=== PATIENT | male | born 1955 | race Caucasian/White ===

== ENCOUNTER 2023-08-26 19:24 | Outpatient (CLI) | payer OTHER, SELFPAY | END 2023-08-26 19:25 | disposition home or self-care (01) | LOC: AMB 09-02 16:12 | PROVIDERS: Visit Provider Student in an Organized Health Care Education/Training Program | DX: S29.9XXA Unspecified injury of thorax, initial encounter (principal); W01.0XXA Fall on same level from slipping, tripping and stumbling without subsequent striking against object, initial encounter; Y92.007 Garden or yard of unspecified non-institutional (private) residence as the place of occurrence of the external cause | CPT/HCPCS: A0425; A0427 ==

== ENCOUNTER 2025-01-16 06:13 | Outpatient (CLI) | payer OTHER, MEDICARE, SELFPAY | END 2025-01-16 06:14 | disposition home or self-care (01) | LOC: AMB 01-17 10:01 | PROVIDERS: Visit Provider Family Medicine | DX: M25.511 Pain in right shoulder (principal); Z98.890 Other specified postprocedural states | CPT/HCPCS: A0425; A0427 ==

== ENCOUNTER 2025-01-16 06:52 | Emergency (ER) | payer OTHER, MEDICARE, SELFPAY ==
[2025-01-16 06:55] VITALS: BP 121/76; PULSE 73; RESP 18; TEMP 37; O2SAT 94; BMI 25.9
--- OUTSIDE RECORDS SUMMARY | 2025-01-16 06:55 | XMS_ITS ---
Author Organization [facility] Care Team Providers Care Butadiene Compressor Operator Name Role Phone Jyoti Duarte Unavailable Unavailable Raul Monae Unavailable Unavailable Allergies and adverse reactions Code CodeSystem Substance Reaction Severity StartDate Concern Status 61571 RXNORM Losartan Unknown 01/16/2022 active 99344 RXNORM Lisinopril Unknown 01/16/2022 active 95752 RXNORM Gabapentin Unknown 01/16/2022 active 32142 RXNORM DULoxetine Unknown 01/16/2022 active Demerol Unknown 01/16/2022 active 55358 RXNORM amLODIPine Unknown 01/16/2022 active Care Team Name Role Address Phone Organization Dates Raul Monae [address], [address], [place], [address] [place] [address] (Office): [facility] 01/16/2022 - 01/30/2022 Jyoti Duarte Attending Physician [place] [id number] [facility] [address], [place], [address], [facility] (Office): : [facility] 01/16/2022 - 01/30/2022 Immunizations Immunization Status Vaccine Details Vaccine Code CodeSystem Date Notes TB 2 Step Mantoux Skin Test completed tuberculin skin test; unspecified formulation lotNumber: [id number] expiry: 02/06/2023 Mfg: Aplisol Given 0.1 ml Right Forearm intradermally Step 1 of Multi-step with next step required 98 CVX created date: 01/16/2022 consent date: 01/16/2022 administere d date: 01/16/2022 Read at 0800 by Dileep leon LPN on 01/19/2022 . TDAP completed tetanus toxoid, reduced diphtheria toxoid, and acellular pertussis vaccine, adsorbed 115 CVX created date: 01/16/2022 administere d date: 06/12/2013 PPSV23, Pneumovax 23 completed pneumococcal polysaccharide vaccine, 23 valent 33 CVX created date: 01/16/2022 administere d date: 08/21/2014 PPSV23, Pneumovax 23 completed pneumococcal polysaccharide vaccine, 23 valent 33 CVX created date: 01/16/2022 administere d date: 06/18/2009 PCV13, Kpmobzi02 completed pneumococcal conjugate vaccine, 13 valent 133 CVX created date: 01/16/2022 administere d date: 10/08/2015 Influenza-High Dose completed Influenza, high-dose, split virus, quadrivalent, injectable, preservative free 197 CVX created date: 01/16/2022 administere d date: 07/15/2020 Td completed tetanus and diphtheria toxoids, not adsorbed, for adult use 138 CVX created date: 01/16/2022 administere d date: 02/15/2006 COVID-19 Vaccine dose 1 completed SARS-COV-2 (COVID-19) vaccine, mRNA, spike protein, LNP, preservative free, 30 mcg/0.3mL dose Mfg: Elliptic 208 CVX created date: 01/16/2022 administere d date: 12/15/2020 COVID-19 Vaccine dose 2 completed SARS-COV-2 (COVID-19) vaccine, mRNA, spike protein, LNP, preservative free, 30 mcg/0.3mL dose Mfg: Elliptic 208 CVX created date: 01/16/2022 administere d date: 11/24/2020 Mental Status Section Date Assessment Total Score Description 01/30/2022 BIMS 15 cognitively int act CAM 0 No delirium ind icated PHQ-9 00 01/22/2022 BIMS 14 cognitively int act CAM 0 No delirium ind icated PHQ-9 01 minimal depress ion Problems Problem # Description Date of onset Resolved Date Code CodeSystem Concern Status 1 AFTERCARE FOLLOWING JOINT REPLACEMENT SURGERY 01/16/[address] active 2 CHRONIC OBSTRUCTIVE PULMONARY DISEASE, UNSPECIFIED 01/16/[address] active 3 CHRONIC RESPIRATORY FAILURE, UNSPECIFIED WHETHER WITH HYPOXIA OR HYPERCAPNIA 01/16/[address] active 4 CONSTIPATION, UNSPECIFIED 01/16/[address] active 5 CORONARY ANGIOPLASTY STATUS 01/16/[address] active 6 DEPENDENCE ON OTHER ENABLING MACHINES AND DEVICES 01/16/[address] active 7 DEPENDENCE ON SUPPLEMENTAL OXYGEN 01/16/[address] active 8 EDEMA, UNSPECIFIED 01/16/[address] active 9 ESSENTIAL (PRIMARY) HYPERTENSION 01/16/[address] active 10 HYPERLIPIDEMIA, UNSPECIFIED 01/16/[address] active 11 HYPOTHYROIDISM, UNSPECIFIED 01/16/[address] active 12 INSOMNIA, UNSPECIFIED 01/16/[address] active 13 IRON DEFICIENCY ANEMIA, UNSPECIFIED 01/16/[address] active 14 OBESITY, UNSPECIFIED 01/16/[address] active 15 OBSTRUCTIVE SLEEP APNEA (ADULT) (PEDIATRIC) 01/16/[address] active 16 OLD MYOCARDIAL INFARCTION 01/16/[address] active 17 OTHER SEASONAL ALLERGIC RHINITIS 01/16/[address] active 18 PAIN IN LEFT SHOULDER 01/16/[address] active 19 PRESENCE OF LEFT ARTIFICIAL HIP JOINT 01/16/[address] active 20 PRIMARY OPEN-ANGLE GLAUCOMA, RIGHT EYE, STAGE UNSPECIFIED 01/16/[address] active 21 SPONDYLOSIS, UNSPECIFIED 01/16/[address] active 22 TYPE 2 DIABETES MELLITUS WITH DIABETIC NEUROPATHY, UNSPECIFIED 01/16/[address] active Reason for Referral No Reasons for Referral Entered Social History Social History Observation Description Start Date End Date Code Code System Current Smoking Status Tobacco smoking consumption unknown 351029492 SNOMED CT Sex Assigned At Male 1955 88767-9 [facility] Vital Signs Code Code System Vitals Name Values and Units Timing Information 8462-4 [facility] Blood Pressure-Diastolic Value=58 Un its=mmHg 01/30/2022 8480-6 [facility] Blood Pressure-Systolic Dodrq=905 Un its=mmHg 01/30/2022 03969-1 [facility] O2 % BldC Oximetry Value=97.0 Units= % 01/30/2022 8310-5 [facility] Body Temperature Value=98.1 Units= F 01/30/2022 16569-0 [facility] Pain Level Value=0.0 01/30/2022 9279-1 [facility] Respiratory Rate Value=20.0 Units=/m in 01/29/2022 8867-4 [facility] Heart rate Value=58.0 Units=/min 79094-2 LOINC Weight Rcwai=492.0 Units=Lbs 2339-0 [facility] Blood Sugar Mcbpb=299.0 Units=mg/dL 01/20/2022 8302-2 [facility] Height Value=70.0 Units=Inches 01/19/2022
--- OUTSIDE RECORDS SUMMARY | 2025-01-16 06:55 | XMS_ITS | Continuity of Care Document ---
Author Organization [facility]AN[facility] Address [address] [place] [address] Phone Care Team Providers Care Sign Board Erector Name Role Phone Annika Sarabia PA-C Unavailable Unavaila ble Procedures Procedure Date Offic/outpt E&m Estab Low-mod 6 Destrct; Paravert Facet Jt Lum 06 Destrct; Nerv Lumbar Ea Add Le 06 Destrct; Nerv Lumbar Ea Add Le 06 Fluoro Guid Needle-spine Inj P 06 Inj Anes Facet Jt; Lumb/sac-1l 05 Inj Anes Facet Jt; Lumb/sac-ea 05 Inj Anes Facet Jt; Lumb/sac-ea 05 Fluoro Guid Needle-spine Inj P 05 Advance Directives Directive Yes / No Effective Date File Name No Information Encounters Encounter Description Practice Location Reason(s) For Visit Diagnoses Date Provider Providers Copied on Encounter Offic/outpt E&m Estab Low-mod [facility], [address] [place], [place], [id number], [place] tel:[phone] [facility] No Information 6 No [place]. [address], [place], [address], . tel:[phone] JANIS Jean, [address] [facility] [facility] [address], [place], [place], [id number], tel:[phone] [facility] No Information [address] 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
--- OUTSIDE RECORDS SUMMARY | 2025-01-16 06:55 | XMS_ITS | Clinical Summary ---
Author Organization [facility] Address [address] [place] [address] Care Team Providers Care Hr Recruiter Name Role Phone Nella Dukes MD Primary Care Provi matthew Allergies No known active allergies Medications ASPIRIN 81 MG TAB, DELAYED RELEASE take 1 tablet (81 mg) by oral route once daily 0 0 12/13/2007 Active OMEPRAZOLE 20 MG CAP, DELAYED RELEASE take 1 capsule (20 mg) by oral route once daily before a meal 30 0 12/13/2007 Active LIPITOR 10 MG TAB take 1 tablet (10 mg) by oral route once daily 30 0 12/13/2007 Active Active Problems Problem Noted Date Diagnosed Date Chest pain, unspecified 12/12/2007 Other abnormal glucose 12/12/2007 Unspecified asthma(493.90) Morbid obesity Family History Medical History Relation Name Comments Asthma Brother 4 Other Father MVA. Heart Disease Mother Diabetes Sister 3 Other Sister 4 COPD Relation Name Status Comments Brother 1 Alive Brother 2 Alive Brother 3 Alive Brother 4 Father Complications s econdary to MVA. Mother Sister 1 Alive Sister 2 Alive Sister 3 Sister 4 Social History Tobacco Use Types Packs/Day Years Used Date Smoking Tobacco: Former Comments:Quit 2 years ago. Alcohol Use Standard Drinks/Week Comments Yes 0 (1 standard drink = 0.6 oz pur e alcohol) 1-2 beers/month. Sex and Gender Information Value Date Recorded Sex Assigned at Not on file Legal Sex Male 6:38 AM TURBINE ATTENDANT Gender Identity Not on file Sexual Orientation Not on file Obstetrics History Last Filed Vital Signs Vital Sign Reading Time Taken Comments Blood Pressure 135/78 12/13/2007 4:00 PM TURBINE ATTENDANT Pulse 71 12/13/2007 4:00 PM TURBINE ATTENDANT Temperature 36.6 C (97.8 F) 12/13/2007 4:00 PM TURBINE ATTENDANT Respiratory Rate 18 12/13/2007 4:00 PM TURBINE ATTENDANT Oxygen Saturation 95% 12/13/2007 4:00 PM TURBINE ATTENDANT Inhaled Oxygen Concentration - - Weight 116.6 kg (257 lb) 12/13/2007 5:00 AM TURBINE ATTENDANT Height 180.3 cm (5' 11) 12/12/2007 9:00 PM TURBINE ATTENDANT Body Mass Index 35.84 12/12/2007 9:00 PM TURBINE ATTENDANT Plan of Treatment Health Maintenance Due Date Last Done Comments Tdap 02/14/1964 Depression screening for age 12+ 1965 BMI (ht and wt on same day) for age 18+ 1971 Hepatitis C screening for age 18-79 1971 Tetanus booster 1973 Colonoscopy through age 75 1998 Pneumococcal series for age 50+ (1 of 1 - PCV) 003 Zoster (shingles) series for age 50+ (1 of 2) 02/14/20 03 Lipids for age 45-75 12/13/2012 12/13/2007 COVID-19 vaccine series (2023- season) Influenza Vaccine (#1) 2024 RSV vaccine for adults or pr egnancy (1 - 1-dose 75+ series) 02/14/2028 Procedures Procedure Name Priority Date/Time Associated Diagnosis Comments LIPID PANEL Early AM 12/13/2007 3:40 AM TURBINE ATTENDANT from Last 3 Months or Most Recently Relevant to Health Maintenance Results * (ABNORMAL) Lipid Panel (12/13/2007 3:40 AM TURBINE ATTENDANT) CHOLESTEROL,TOTAL 223(H) 110 - 199 mg/dL [facility] TRIGLYCERIDES 225(H) 40 - 149 mg/dL [facility] HDL CHOLESTEROL 35(L) >40 mg/dL [facility] CHOL/HDL RATIO 6.37(H) <4.51 [facility] LDL CHOLESTEROL 143(H) <131 mg/dL [facility] PATIENT STATUS Fasting [facility] Blood specimen (specimen) BLOOD SPECIMEN / Unknown 12/13/2007 3:40 AM TURBINE ATTENDANT 12/12/2007 11:29 PM TURBINE ATTENDANT Maurice Santos MD CHEMISTRY Final Re sult [facility] [place] [address] [id number] [address] [place] [address] from Last 3 Months or Most Recently Relevant to Health Maintenance Insurance [address] [place] [address] MEDICARE PART B HB ONLY Advance Directives * Full Code (Latest Code Status on File) Date Activated Date Inactivated Comments 12/12/2007 11:29 PM 12/13/2007 11:05 PM Care Teams Hr Recruiter Relationship Specialty Start Date End Date Nella Dukes MD [address] [place] [address] PCP - General Internal Medicine 02/17/20
--- NOTE | 2025-01-16 07:27 | ED_ITS ---
HPI - General Adult General Chief complaint: Extremity Pain/Injury, Upper <Preethi Cruz MD - Last Filed: 01/19/25 01:22> Stated complaint: ems <Preethi Cruz MD - Last Filed: 01/19/25 01:22> Time Seen by Provider: 01/16/25 07:08 <Preethi Cruz MD - Last Filed: 01/19/25 01:22> Source: patient and EMS <Preethi Cruz MD - Last Filed: 01/19/25 01:22> Mode of arrival: EMS <Preethi Cruz MD - Last Filed: 01/19/25 01:22> History of Present Illness HPI narrative: 69-year-old male with a history of a reverse total shoulder replacement 6 days ago presents to the emergency department with uncontrolled pain in the right shoulder, the operative side. Reports that he could not get his pill vials open and that he is struggling to care for himself at home. He was under the impression that he would be going to [facility] facility following discharged from the [facility] on postop day 1. It sounds like there were no beds available and he was discharged to home with home health. It sounds as though he has an existing [facility] nurse. It sounds as though his nurse was there just yesterday and was planning to visit again today. Patient reports that it is difficult to take care of himself with his left hand but he is not able to give me specific details on what needs are difficult to meet. He says that he is not taking any stool softeners or laxatives and his bowels have moved once since he got home 5 days ago. No vomiting. He is vague when I asked specifically about if he is taking his diabetic controlling medications. Blood sugar was noted to be 436 by EMS. Reports that he is eating normally. No new falls, trauma or injury. It sounds as though the right shoulder replacement was elective an and was not the result of a new injury. He reports chronic debility in his legs, wears a brace on the left side for many years has had a replacement on the right side that did improve his function overall. No history of strokes or cognitive impairment per his report. We have no information on him as [facility]. he denies a history of seizure disorder. He reports that diabetes is his only long-term health problem, he does not know his medications. Based on his allergy list which imports from another EMR, he will has allergies to multiple antihypertensives, unknown reactions and pain medications making me suspect that he does have some underlying heart disease. He is vague about questions on alcohol and tobacco use. He has not given me the impression that he has tried to contact other rehab facilities for treatment. He reports that he called because his pain was uncontrolled an EMS was able to open his medication vials and give him to oxycodone, Tylenol and his muscle relaxant and his pain has improved quite a bit on route. Reports that his brother brought him home from surgery last week and does live in the area. Past medical history and medication list are unknown. Surgery list pertinent for a right total knee replacement remotely, a left knee arthroscopic be remotely and a recent right total shoulder replacement. He is vague on any other details. ROS is notable for vague symptoms and pain in the right shoulder, denies any focal neurological, GI, cardiac or respiratory changes. Otherwise benign times 12 systems besides multiple chronic reported musculoskeletal ailments <Preethi Cruz MD - Last Filed: 01/19/25 01:22> Related Data Home medications: Home Medications ?Medication ?Instructions ?Recorded ?Confirmed Unobtainable 01/16/25 01/16/25 <Preethi Cruz MD - Last Filed: 01/19/25 01:22> Allergies/adverse reactions: Allergies Allergy/AdvReac Type Severity Reaction Status Date / Time amlodipine Allergy Unknown Verified 01/16/25 07:26 duloxetine Allergy Unknown Verified 01/16/25 07:26 gabapentin Allergy Unknown Verified 01/16/25 07:26 lisinopril Allergy Unknown Verified 01/16/25 07:26 losartan Allergy Unknown Verified 01/16/25 07:26 meperidine (From Demerol) Allergy Unknown Verified 01/16/25 07:26 metoprolol Allergy Unknown Verified 01/16/25 07:26 <Preethi Cruz MD - Last Filed: 01/19/25 01:22> [facility] Social History: Social History Smoking Status: Unknown if ever smoked <Preethi Cruz MD - Last Filed: 01/19/25 01:22> Exam Const: Vital Signs, click to edit/add: Vital Signs - 24 hr 01/16/25 06:55 Temperature 98.6 F Pulse Rate [Pulse Oximeter] 73 Respiratory Rate 18 Blood Pressure [Ri ght Upper Arm] 121/76 Pulse Oximetry 94 Oxygen Delivery Me thod Room Air <Preethi Cruz MD - Last Filed: 01/19/25 01:22> Vital Signs, click to edit/add: Vital Signs - 24 hr 01/16/25 06:55 Temperature 98.6 F Pulse Rate [Pulse Oximeter] 73 Respiratory Rate 18 Blood Pressure [Ri ght Upper Arm] 121/76 Pulse Oximetry 94 Oxygen Delivery Me thod Room Air <Homero Menendez DO - Last Filed: 01/16/25 09:15> Common normals: no apparent distress and alert <Preethi Cruz MD - Last Filed: 01/19/25 01:22> Other: Obvious bruising consistent with recent surgical procedure but incision appears to be healing well. Does appear well nourished and well hydrated. Does not know medical details but I do not suspect that this reflects acute condition. <Preethi Cruz MD - Last Filed: 01/19/25 01:22> HENMT: Common normals: normocephalic, moist oral mucous membranes and oropharynx normal <Preethi Cruz MD - Last Filed: 01/19/25 01:22> Head and scalp: normocephalic <Preethi Cruz MD - Last Filed: 01/19/25 01:22> Face and sinus: normal facial exam <Preethi Cruz MD - Last Filed: 01/19/25 01:22> Mouth: oral and palatal mucosa normal <MD Kalli Bowser Last Filed: 01/19/25 01:22> Eye: Common normals: PERRL, EOMs intact bilaterally and conjunctivae normal <MD Kalli Bowser Last Filed: 01/19/25 01:22> General eye: normal appearance of both eyes <Preethi Cruz MD - Last Filed: 01/19/25 01:22> Conjunctiva: conjunctiva(e) normal <MD Kalli Bowser Last Filed: 01/19/25 01:22> Pupil: PERRL <MD Kalli Bowser Last Filed: 01/19/25 01:22> Neck & C-Spine: Common normals: full ROM and no lymphadenopathy <MD Kalli Bowser Last Filed: 01/19/25 01:22> Resp: Common normals: normal respiratory effort <MD Kalli Bowser Last Filed: 01/19/25 01:22> Other: Slight prolongation of expiration but no wheeze. Normal respiratory effort. No crackles. <MD Kalli Bowser Last Filed: 01/19/25 01:22> Cardio: Common normals: regular rate, regular rhythm, S1 normal heart sound, S2 normal heart sound and no murmurs <MD Kalli Bowser Last Filed: 01/19/25 01:22> Rate: regular rate <MD Kalli Bowser Last Filed: 01/19/25 01:22> Rhythm: regular rhythm <MD Kalli Bowser Last Filed: 01/19/25 01:22> Heart sounds: S1 normal and S2 normal <MD Kalli Bowser Last Filed: 01/19/25 01:22> GI: Other: Abdomen slightly distended, gaseous distension. Nontender. Normoactive bowel sounds. No obvious mass. <MD Kalli Bowser Last Filed: 01/19/25 01:22> Extremity: Other: Knee brace on left leg, he says that this is chronic and does not reflect an acute surgery. He does have no pedal edema bilaterally. Bruising to the right chest and arm consistent with surgical procedure. Incision does seem to be healing appropriately. He has good movement in the hand and normal radial pulses on the side. <MD Kalli Bowser Last Filed: 01/19/25 01:22> Neuro: Common normals: CN's II-XII intact bilaterally <MD Kalli Bowser Last Filed: 01/19/25 01:22> Sensorium/orientation: alert <Preethi Cruz MD - Last Filed: 01/19/25 01:22> Motor exam: strength 5/5 throughout and muscle tone normal throughout <Elmira Cruz MD - Last Filed: 01/19/25 01:22> Psych: Appearance: unkempt <Preethi Cruz MD - Last Filed: 01/19/25 01:22> Attitude: calm <Preethi Cruz MD - Last Filed: 01/19/25 01:22> Insight: fair <Preethi Cruz MD - Last Filed: 01/19/25 01:22> Judgement: fair <Preethi Cruz MD - Last Filed: 01/19/25 01:22> Skin: Common normals: no rashes or lesions noted <Preethi Cruz MD - Last Filed: 01/19/25 01:22> General skin exam: no rashes or lesions noted <Preethi Cruz MD - Last Filed: 01/19/25 01:22> Course Course ED Course: 69-year-old male with right shoulder pain, improving after administration of patient's typical home medications by EMS. Concern for ability to care for self in home, does not appear to have acute medical illness or sepsis. No signs of acute neurological process. Consult social insurance adviser, ask nursing team to attempt to make contact with his home health nurse to try to get more information on what services he has at home. Blood sugar noted to be elevated, will administer 8 units of insulin, give his morning dose of metformin and feed patient. Pain is already better with administration of p.o. medications. Will check some basic labs to ensure that there are no signs of severe hyperglycemia, metabolic derangement, anemia or other contributing factors. I am uncertain if there are any beds available and any local rehab facilities, and have asked for social insurance adviser input. Most likely these would not be available today but we will do our best. Hopefully his home health team has some ideas on how to better set up his medications that he can self administer. Patient seem quite surprised that he was sent home after the surgery and I let him know that this is typically the practice after an elective surgery like he had. He was surprised to hear this. Recovery is quite difficult and I would not have expected him to be making much more progress then he currently is. He is not able to relay his plans for rehab through physical therapy whether he will be attending a center or this will be arranged at home. I suspect that his home health nurse knows these details better than the patient. Will give some senna and MiraLax as he has not been keeping up with the bowel regimen that was outlined to him after surgery as well. Await input from multidisciplinary team. Suspect that he will be going home with his existing home health services now that his pain is under better control. <Preethi Cruz MD - Last Filed: 01/19/25 01:22> Vital Signs Vital signs: Initial Vital Signs Temperature 98.6 F 01/16/25 06:55 Temperature Source Temporal Artery Scan 01/16/25 06:55 Pulse Rate 73 01/16/25 06:55 Respiratory Rate 18 01/16/25 06:55 Blood Pressure 121/76 01/16/25 06:55 Blood Pressure Mean 91 01/16/25 06:55 Blood Pressure Position Supine 01/16/25 06:55 Pulse Oximetry 94 01/16/25 06:55 Oxygen Delivery Method Room Air 01/16/25 06:55 Vital Signs Temperature 98.6 F 01/16/25 06:55 Pulse Rate 73 01/16/25 06:55 Respiratory Rate 18 01/16/25 06:55 Blood Pressure 121/76 01/16/25 06:55 Pulse Oximetry 94 01/16/25 06:55 Oxygen Delivery Method Room Air 01/16/25 06:55 Temperature 98.6 F 01/16/25 06:55 Pulse Rate 73 01/16/25 06:55 Respiratory Rate 18 01/16/25 06:55 Blood Pressure 121/76 01/16/25 06:55 Pulse Oximetry 94 01/16/25 06:55 Oxygen Delivery Method Room Air 01/16/25 06:55 <Preethi Cruz MD - Last Filed: 01/19/25 01:22> Initial Vital Signs Temperature 98.6 F 01/16/25 06:55 Temperature Source Temporal Artery Scan 01/16/25 06:55 Pulse Rate 73 01/16/25 06:55 Respiratory Rate 18 01/16/25 06:55 Blood Pressure 121/76 01/16/25 06:55 Blood Pressure Mean 91 01/16/25 06:55 Blood Pressure Position Supine 01/16/25 06:55 Pulse Oximetry 94 01/16/25 06:55 Oxygen Delivery Method Room Air 01/16/25 06:55 Vital Signs Temperature 98.6 F 01/16/25 06:55 Pulse Rate 73 01/16/25 06:55 Respiratory Rate 18 01/16/25 06:55 Blood Pressure 121/76 01/16/25 06:55 Pulse Oximetry 94 01/16/25 06:55 Oxygen Delivery Method Room Air 01/16/25 06:55 Temperature 98.6 F 01/16/25 06:55 Pulse Rate 73 01/16/25 06:55 Respiratory Rate 18 01/16/25 06:55 Blood Pressure 121/76 01/16/25 06:55 Pulse Oximetry 94 01/16/25 06:55 Oxygen Delivery Method Room Air 01/16/25 06:55 <Homero Menendez DO - Last Filed: 01/16/25 09:15> Medications Administered Medications: Discontinued Medications Generic Name Dose Route Start Last Admin Trade Name Freq PRN Reason Stop Dose Admin Insulin Human Regular 8 unit 01/16/25 07:14 01/16/25 08:11 Insulin Regular, Human 100 Unit/Ml Vial SUBCUT 01/16/25 07:15 8 unit ONCE ONE Administration Metformin HCl 1,000 mg 01/16/25 07:16 01/16/25 08:10 Metformin 1,000 Mg Tablet PO 01/16/25 07:17 1,000 mg ONCE ONE Administration Polyethylene Glycol 17 gm 01/16/25 07:26 01/16/25 08:10 Polyethylene Glycol 3350 17 Gm Pack PO 01/16/25 07:27 17 gm ONCE ONE Administration Sennosides 2 tab 01/16/25 07:26 01/16/25 08:10 Sennosides 1 Tab Tablet PO 01/16/25 07:27 2 tab BID ONE Administration <Preethi Cruz MD - Last Filed: 01/19/25 01:22> Discontinued Medications Generic Name Dose Route Start Last Admin Trade Name Freq PRN Reason Stop Dose Admin Insulin Human Regular 8 unit 01/16/25 07:14 01/16/25 08:11 Insulin Regular, Human 100 Unit/Ml Vial SUBCUT 01/16/25 07:15 8 unit ONCE ONE Administration Metformin HCl 1,000 mg 01/16/25 07:16 01/16/25 08:10 Metformin 1,000 Mg Tablet PO 01/16/25 07:17 1,000 mg ONCE ONE Administration Polyethylene Glycol 17 gm 01/16/25 07:26 01/16/25 08:10 Polyethylene Glycol 3350 17 Gm Pack PO 01/16/25 07:27 17 gm ONCE ONE Administration Sennosides 2 tab 01/16/25 07:26 01/16/25 08:10 Sennosides 1 Tab Tablet PO 01/16/25 07:27 2 tab BID ONE Administration <Homero Menendez DO - Last Filed: 01/16/25 09:15> Medical Decision Making MDM Narrative Medical decision making narrative: Patient was signed out to me pending evaluation by social insurance adviser. [employer] explain to him that he is not a candidate to get assisted care pain for. Did offer to speak to [facility] his behalf but he declined. She also spoke to his home health who states he has or at the maximum from health the has been a patient of theirs for years. At this time he is accepting for discharge in his home health nurse will arrive at his home shortly. <Homero Menendez DO - Last Filed: 01/16/25 09:15> Lab Data Labs: Lab Results 01/16/25 01/16/25 Range/Units 07:09 07:35 WBC 6.92 (4.50-11.00) K/uL RBC 3.61 L (4.30-5.90) m/uL Hgb 10.6 L (13.5-17.5) gm/dL Hct 34.0 L (37.0-53.0) % MCV 94 (80-100) fL MCH 29 (26-34) pg MCHC 31 L (32-36) gm/dL RDW Coeff of Roger 13.6 (11.5-15.5) % Plt Count 217 (140-440) K/uL Neut % (Auto) 72.3 H (42.0-72.0) % Lymph % (Auto) 11.6 L (20-44) % Morrison % (Auto) 14.3 H (0.0-11.0) % Eos % (Auto) 1.6 (0.0-7.0) % Baso % (Auto) 0.1 (0.0-3.0) % Neut # (Auto) 5.00 (1.7-7.0) K/uL Lymph # (Auto) 0.80 L (0.90-2.90) K/uL Morrison # (Auto) 1.00 H (0.00-0.90) K/UL Eos # (Auto) 0.11 (0.00-0.50) K/uL Baso # (Auto) 0.01 (0.00-0.30) K/uL Abs Immat Gran (auto) 0.01 (0.00-0.30) K/uL Imm/Tot Granulo (auto) 0.1 % Sodium 134 L (135-149) mmol/L Potassium 3.7 (3.6-5.1) mmol/L Chloride 103 (96-114) mmol/L Carbon Dioxide 23 (20-32) mmol/L Anion Gap 8 (7-15) mEq/L BUN 24 (7-30) mg/dL Creatinine 0.8 (0.5-1.5) mg/dL Estimated Creat Clear 72.16 Estimated GFR 95 ml/min Glucose 321 H (60-115) mg/dL Calcium 9.3 (8.4-10.6) mg/dL Total Bilirubin 0.5 (0.1-1.5) mg/dL AST 35 (12-35) U/L ALT 27 (4-50) U/L Alkaline Phosphatase 80 (40-150) U/L C-Reactive Protein 12.5 H (0.5-1.0) mg/dL Total Protein 6.2 (6.0-8.3) g/dL Albumin 3.6 (3.3-5.0) g/dL Urine Color Yellow (Yellow) Urine Appearance Clear (Clear) Urine pH 5.5 (5.0-8.5) Ur Specific Benton <= 1.005 (1.000-1.030) Urine Protein Negative (Negative) Urine Glucose (UA) 3+ A (Negative) Urine Ketones Trace A (Negative) Urine Blood Negative (Negative) Urine Nitrite Negative (Negative) Urine Bilirubin Negative (Negative) Urine Urobilinogen 1.0 (0.2-1.0) Ur Leukocyte Esterase Negative (Negative) <Preethi Cruz MD - Last Filed: 01/19/25 01:22> Lab Results 01/16/25 01/16/25 Range/Units 07:09 07:35 WBC 6.92 (4.50-11.00) K/uL RBC 3.61 L (4.30-5.90) m/uL Hgb 10.6 L (13.5-17.5) gm/dL Hct 34.0 L (37.0-53.0) % MCV 94 (80-100) fL MCH 29 (26-34) pg MCHC 31 L (32-36) gm/dL RDW Coeff of Roger 13.6 (11.5-15.5) % Plt Count 217 (140-440) K/uL Neut % (Auto) 72.3 H (42.0-72.0) % Lymph % (Auto) 11.6 L (20-44) % Morrison % (Auto) 14.3 H (0.0-11.0) % Eos % (Auto) 1.6 (0.0-7.0) % Baso % (Auto) 0.1 (0.0-3.0) % Neut # (Auto) 5.00 (1.7-7.0) K/uL Lymph # (Auto) 0.80 L (0.90-2.90) K/uL Morrison # (Auto) 1.00 H (0.00-0.90) K/UL Eos # (Auto) 0.11 (0.00-0.50) K/uL Baso # (Auto) 0.01 (0.00-0.30) K/uL Abs Immat Gran (auto) 0.01 (0.00-0.30) K/uL Imm/Tot Granulo (auto) 0.1 % Sodium 134 L (135-149) mmol/L Potassium 3.7 (3.6-5.1) mmol/L Chloride 103 (96-114) mmol/L Carbon Dioxide 23 (20-32) mmol/L Anion Gap 8 (7-15) mEq/L BUN 24 (7-30) mg/dL Creatinine 0.8 (0.5-1.5) mg/dL Estimated Creat Clear 72.16 Estimated GFR 95 ml/min Glucose 321 H (60-115) mg/dL Calcium 9.3 (8.4-10.6) mg/dL Total Bilirubin 0.5 (0.1-1.5) mg/dL AST 35 (12-35) U/L ALT 27 (4-50) U/L Alkaline Phosphatase 80 (40-150) U/L C-Reactive Protein 12.5 H (0.5-1.0) mg/dL Total Protein 6.2 (6.0-8.3) g/dL Albumin 3.6 (3.3-5.0) g/dL Urine Color Yellow (Yellow) Urine Appearance Clear (Clear) Urine pH 5.5 (5.0-8.5) Ur Specific Benton <= 1.005 (1.000-1.030) Urine Protein Negative (Negative) Urine Glucose (UA) 3+ A (Negative) Urine Ketones Trace A (Negative) Urine Blood Negative (Negative) Urine Nitrite Negative (Negative) Urine Bilirubin Negative (Negative) Urine Urobilinogen 1.0 (0.2-1.0) Ur Leukocyte Esterase Negative (Negative) <Homero Menendez DO - Last Filed: 01/16/25 09:15> Discharge Plan Discharge Clinical Impression: Post-operative pain, Deficit in activities of daily living (ADL) <Preethi Cruz MD - Last Filed: 01/19/25 01:22> Patient Disposition: Home, Self-Care <Preethi Cruz MD - Last Filed: 01/19/25 01:22> Condition: Stable <Preethi Cruz MD - Last Filed: 01/19/25 01:22> Additional Instructions: Speak to your surgeon about pain management and your home health nurse about your care <Preethi Cruz MD - Last Filed: 01/19/25 01:22> Prescriptions: No Action Unobtainable <Preethi Cruz MD - Last Filed: 01/19/25 01:22> Follow Up/Referrals: Provider,Not a Local [Primary Care Provider] - <Preethi Cruz MD - Last Filed: 01/19/25 01:22> Stand Alone Forms: MyHealth Info Instructions <Preethi Cruz MD - Last Filed: 01/19/25 01:22>
[2025-01-16 07:46] LABS: Basophils Absolute Auto 0.01 K/uL (0.00-0.30); Basophils Percent Auto 0.1 % (0.0-3.0); Eosinophils Absolute Auto 0.11 K/uL (0.00-0.50); Eosinophils Percent Auto 1.6 % (0.0-7.0); Hemoglobin* 10.6 gm/dL (13.5-17.5); Immature Granulocytes Abs Auto 0.01 K/uL (0.00-0.30); Immature Granulocytes Pct Auto 0.1 %; Lymphocytes Percent Auto 11.6 % (20-44); Mean Corpuscular HGB Conc 31 gm/dL (32-36); Mean Corpuscular Hemoglobin 29 pg (26-34); Mean Corpuscular Volume 94 fL (80-100); Monocytes Percent Auto 14.3 % (0.0-11.0); Neutrophils Percent Auto 72.3 % (42.0-72.0); Platelet Count* 217 K/uL (140-440); RDW Coefficient of Variation % 13.6 % (11.5-15.5); Red Blood Count* 3.61 m/uL (4.30-5.90); White Blood Count* 6.92 K/uL (4.50-11.00)
[2025-01-16 07:48] LABS: Slide Review Reflex No
--- OUTSIDE RECORDS SUMMARY | 2025-01-16 07:56 | XMS_ITS | Encounter Summary ---
Author Name [facility] Organization [facility] Address [address] [place] [address] Care Team Providers Care Fisher Diving Name Role Phone ZENY MARTIN Primary Care Provider Unavailabl e Insurance Providers: All historical and current Section Date Range: From patient's date of to the date document was created. This section includes the names of all active insurance providers for the patient. Insurance Provider Type of Coverage Plan Name Start of Policy Coverage End of Policy Coverage Group Number Member ID Insurance Provider's Telephone Number Policy Enrique's Name Patient's Relationship to Policy Enrique MEDICARE (WNR) MEDICARE (M) PART A Oct 18, 2013 PART A [id number] [phone] Mary ROSA PATIENT MEDICARE (WNR) MEDICARE (M) PART B Oct 18, 2013 PART B [id number] [phone] Mary ROSA EOMIRELAD PATIENT MEDICARE (WNR) MEDICARE (M) PART A Oct 18, 2013 PART A [id number] [phone] Mary ROSA PATIENT Selected Encounter This section includes the information on record at [place] for the Encounter. Date/Time Encounter Type Encounter Description Reason Pro vider Source Dec 06, 2024 02:44 PM Outpatient Encounter EVENT (HISTORICAL) [facility] Encounter Template Text not used by [place] Plan of Treatment: Future Appointments (+ 6 months) and Future Tests (+/- 45 days) The Plan of Treatment section includes future care activities for the patient from all [facility] treatment[facility]. This section includes future appointments and future orders which are active, pending or scheduled. Future Appointments This section includes appointments that were scheduled to occur 6 months from the date of the Encounter, up to a maximum of 20 appointments. The data comes from all [facility]. Appointment Date/Time Appointment Type Appointme nt Facility Name Dec 07, 2024 08:45 AM AM[place] [facility] Dec 14, 2024 10:00 AM [place] [facility] Dec 18, 2024 07:00 AM [place]ONE [place] [facility] Dec 18, 2024 01:00 PM [place] [facility] Dec 18, 2024 01:15 PM [place] [facility] Dec 18, 2024 01:45 PM [facility] Dec 18, 2024 02:00 [facility] Dec 18, 2024 02:30 PM AMBULATORY - SURGERY [facility] Dec 19, 2024 11:00 AM AMBULATORY - REHAB MEDICIN E [facility] Dec 27, 2024 07:00 [facility] Dec 28, 2024 10:00 [facility] Dec 28, 2024 11:00 AM AMBULATORY - REHAB MEDICIN E [facility] Jan 01, 2025 01:30 PM AMBULATORY - REHAB MEDICIN E [facility] Jan 24, 2025 01:00 PM AMBULATORY - SURGERY [facility] Jan 25, 2025 10:00 AM [facility] Jan 25, 2025 11:00 AM AMBULATORY - REHAB MEDICIN E [facility] Feb 01, 2025 10:00 AM [place] [facility] Feb 01, 2025 11:00 AM [facility] Feb 08, 2025 10:00 [facility] February 22, 2025 10:00 AM [facility] Active, Pending, and Scheduled Orders This section includes a listing of several types of active, pending, and scheduled orders, including clinic medications orders, diagnostic test orders, procedure orders and consult orders; where the start date of the order is 45 days before the date of the Encounter or 45 days after the date of theEncounter. The data comes from all [place] treatment facilities. Test Date/Time Test Type Test Details Facility Name Dec 11, 2024 11:04 AM Consult Order PT PHYSICA L THERAPY OUTPT ORTHO SURGERY Cons Collection Manager's Choice [facility] Jan 10, 2025 12:00 AM Laboratory - Blood Bank Order TYPE & SCREEN - LAB BLOOD WC [facility] Jan 12, 2025 08:18 AM Consult Order [facility] Collection Manager's [facility] Lab Results: +/- 30 days of the encounter This section includes the Chemistry and Hematology Lab Results on record with [place] for the patient. Radiology Reports and Pathology Reports are provided separately, in subsequent sections. Lab Results This section contains the Chemistry/Hematology Results that were resulted 30 days before or 30 daysafter the date of the Encounter. Date/Time Source Result Type Result - Unit Interpretation Reference Range Comment Dec 18, 2024 12:16 PM [facility] ALBUMIN Specimen Type: PLASMA No comment entered. Ordering Provider: BENIGNO KIM Report Released Date/Time: Sep 27, 2024 10:57 AM Reporting Lab: [facility] [id number] Performing Lab: [facility] [id number] ALBUMIN 4.4 g/dL 3.5-5.0 Dec 18, 2024 12:16 PM [facility] HEMOGLOBIN A1C Specimen Type: BLOOD Comment: Values obtained from A1C measurements can vary. For typical A1C assays, a reported value of 7.0 could actually be between 6.7 and 7.3 if measured by a reference method. A reported value of 9.0 could actually be between 8.7 and 9.3. Ref: http://www.ngs p.org/CAPdata. asp Ordering Provider: BENIGNO KIM A Report Released Date/Time: Sep 27, 2024 10:57 AM Reporting Lab: [facility] [id number] Performing Lab: [facility] [id number] HEMOGLOBIN A1C 7.1 H 4.0-6.0 Dec 18, 2024 12:16 PM [facility] PROTHROMBIN TIME/INR Specimen Type: PLASMA No comment entered. Ordering Provider: BENIGNO KIM A Report Released Date/Time: Sep 27, 2024 10:57 AM Reporting Lab: [facility] [id number] Performing Lab: [facility] [id number] .INR 0.9 0.8-1.1 .PT 10.3 s 9.4-12.5 Dec 18, 2024 12:16 PM [facility] BASIC METABOLIC PANEL+MG Specimen Type: PLASMA No comment entered. Ordering Provider: BENIGNO KIM A Report Released Date/Time: Sep 27, 2024 10:57 AM Reporting Lab: [facility] [id number] Performing Lab: [facility] [id number] CREATININE 1.0 mg/dL 0.7-1.2 UREA NITROGEN 19 mg/dL 8-26 GLUCOSE 118 mg/dL H 70-100 SODIUM 139 mmol/L 136-145 POTASSIUM 4.1 mmol/L 3.5-5.1 CHLORIDE 104 mmol/L 98-107 CO2 25 mmol/L 22-29 CALCIUM 9.6 mg/dL 8.4-10.2 MAGNESIUM 2.1 mg/dL 1.6-2.6 ANION GAP 10 mmol/L 5-15 .CREAT EGFR(CKD-EPI) 80 >60 Dec 18, 2024 12:16 PM [facility] CBC & DIFF Specimen Type: BLOOD Comment: Automated Differential Performed Ordering Provider: BENIGNO KIM A Report Released Date/Time: Sep 27, 2024 10:57 AM Reporting Lab: [facility] [id number] Performing Lab: [facility] [id number] WBC 9.5 4.0-11.0 RBC 5.05 4.60-6.20 HGB 14.9 g/dL 13.5-17.9 HCT 47.6 41.0-54.0 MCV 94.3 fL 80.0-100.0 MCH 29.5 pg 27.0-33.0 MCHC 31.3 g/dL L 32.0-37.5 PLT 217 150-400 MPV 10.5 fL 9.1-13.0 NEUT 60.8 40.0-80.0 LYMPHS 23.7 15.0-45.0 MONO 11.1 2.0-12.0 EOSINO 3.4 0.0-6.0 BASO 0.5 0.0-2.0 RDW 13.4 11.5-14.5 ABS LYMPH 2.3 1.0-4.0 ABS MONO 1.1 H 0.1-1.0 ABS NEUT 5.8 2.0-7.7 ABS EOS 0.3 0.0-0.5 ABS BASO 0.1 0.0-0.2 IG(META,MYELO ,PRO) 0.5 ABS IMMATURE GRAN 0.1 0.0-0.1 Social History: Smoking Status (Most current) and Tobacco Use (All prior to encounter date) This section includes the most current, and the historical, smoking and tobacco- related health factors from the [place] facility where the Encounter took place. Current Smoking Status This section includes the most current smoking, or tobacco-related health factor, from the [place] facility where the Encounter took place. Date/Time Current Smoking Status Comment Facil ity Nov 19, 2023 08:00 AM VA-TOBACCO FORMER USER [facility] Tobacco Use History This section includes a history of the smoking, or tobacco-related health factors, that were collected on or before the date of the Encounter. The data comes from the [place] facility where the Encounter took place. Date/Time Smoking Status/Tobacco Use Comment F acility Nov 19, 2023 08:00 AM VA-TOBACCO QUIT 15 YRS OR MORE [facility] Jan 28, 2023 09:45 AM VA-TOBACCO FORMER USER [facility] Jan 28, 2023 09:45 AM VA-TOBACCO QUIT 15 YRS OR MORE [facility] Oct 30, 2021 03:00 PM VA-TOBACCO FORMER USER [facility] Oct 30, 2021 03:00 PM VA-TOBACCO QUIT 5 TO < 15 YRS [facility] Aug 17, 2019 11:38 AM VA-TOBACCO FORMER USER [facility] Aug 17, 2019 11:38 AM VA-TOBACCO QUIT 5 TO < 15 YRS [facility] Jan 06, 2018 02:39 PM FORMER TOBACCO USER 7Y OR GREATE R [facility] Jan 28, 2017 12:47 PM FORMER TOBACCO USER 7Y OR GREATE R [facility] Jan 21, 2016 03:04 PM FORMER TOBACCO USER 7Y OR GREATE R [facility] Apr 02, 2015 02:05 PM FORMER TOBACCO USER 7Y OR GREATE R [facility] March 01, 2014 09:10 AM FORMER TOBACCO USER 7Y OR GREATE R [facility] Sep 18, 2013 09:13 AM CDM COPD TOBACCO NON-USER [facility] May 28, 2013 11:05 AM LIFETIME NON-TOBACCO USER [facility] May 25, 2013 12:08 PM FORMER TOBACCO USER 7Y OR GREATE R [facility] Jun 18, 2009 09:48 AM FORMER TOBACCO USER 7Y OR GREATE R [facility] Aug 24, 2008 10:10 AM FORMER TOBACCO USE >1Y <7Y [facility] Advance Directives: All historical and current Section Date Range: From patient's date of to the date document was created. This section includes ALL of a patient's completed or amended [place] Advance and Rescinded Directives. The entries below indicate that a directive exists for the patient, but an actual copy is not included with this document. The data comes from all [place] facilities. Date Advance Directives Provider Source March 08, 2023 ADVANCE DIRECTIVE [facility] CHRISTIANSON [facility] May 02, 2014 ADVANCE DIRECTIVE DISCUSSION QUEENIE SAENZ [facility] May 24, 2013 CLINICAL WARNING GALINDO STUART [facility] Sep 21, 2011 ADVANCE DIRECTIVE JORDAN ZHANG [facility]
[2025-01-16 07:57] LABS: Albumin* 3.6 g/dL (3.3-5.0); Chloride* 103 mmol/L (96-114); Potassium* 3.7 mmol/L (3.6-5.1); Sodium* 134 mmol/L (135-149)
--- OUTSIDE RECORDS SUMMARY | 2025-01-16 07:57 | XMS_ITS | Encounter Summary ---
Author Name [facility] [place] [facility] [place] [facility] [place] Address [address] [place] [address] Care Team Providers Care Service Secretary Name Role Phone ZENY MARTIN Primary Care [...] PART A Oct 18, 2013 PART A [id number] [phone] Mary ROSA PATIENT MEDICARE ([place]) MEDICARE (M) PART B Oct 18, 2013 PART B [id number] [phone] Mary ROSA EORODNEY PATIENT MEDICARE ([place]) MEDICARE (M) PART A Oct 18, 2013 PART A [id number] [phone] Mary ROSA PATIENT Selected Encounter This section includes the information on record at [place] for the Encounter. Date/Time Encounter Type Encounter Description Reason Provider Source Sep 25, 2024 11:15 AM OFFICE O/P EST HI 40 MIN ANESTHESIA PRE/POST-OP CONSULT ICD-10-CM Z01.818 Encounter for other preprocedural examination ROBERT WOLFE IHBandar Encounter Template Text not used by [place] Assessments - Encounter Diagnoses This section includes the primary and secondary diagnoses documented for the Encounter. Date/Time Primary/Secondary Diagnosis Diagnosis Name Provider Source Sep 25, 2024 12:36 PM PRIMARY Encounter for other preprocedural examination ROBERT WOLFE [facility] Sep 25, 2024 12:36 PM SECONDARY Athscl heart disease of makah cor art w unsp ang pctrs ROBERT WOLFE [facility] Sep 25, 2024 12:36 PM SECONDARY Chronic obstructive pulmonary disease, unspecified ROBERT WOLFE [facility] Sep 25, 2024 12:36 PM SECONDARY Essential (primary) hypertension ROBERT WOLFE [facility] Sep 25, 2024 12:36 PM SECONDARY Non-ST elevation (NSTEMI) myocardial infarction ROBERT WOLFE [facility] Sep 25, 2024 12:36 PM SECONDARY Other specified postprocedural states ROBERT WOLFE [facility] Sep 25, 2024 12:36 PM SECONDARY Pain in right shoulder ROBERT WOLFE [facility] Sep 25, 2024 12:36 PM SECONDARY Sleep apnea, unspecified ROBERT WOLFE [facility] Sep 25, 2024 12:36 PM SECONDARY Type 2 diabetes mellitus with unspecified complications ROBERT WOLFE [facility] Sep 25, 2024 12:36 PM SECONDARY Ventricular premature depolarization ROBERT WOLFE [facility] Plan of Treatment: Future Appointments (+ 6 months) and Future Tests (+/- 45 days) The Plan of Treatment section includes future care activities for the [facility] [place] [facility] This section includes future appointments and future orders which are active, pending or scheduled. Future Appointments This section includes appointments that were scheduled to occur 6 months from the date of the Encounter, up to a maximum of 20 appointments. The data comes from all [place] treatment facilities. Appointment Date/Time Appointment Type Appointme nt Facility Name Oct 05, 2024 10:00 AM [facility] Nov 02, 2024 10:00 AM [facility] Nov 02, 2024 11:15 [facility] Nov 15, 2024 01:30 PM [facility] Nov 30, 2024 10:00 AM [facility] Dec 07, 2024 08:45 AM [facility] Dec 14, 2024 10:00 AM [facility] Dec 18, 2024 07:00 AM [facility] Dec 18, 2024 01:00 PM AM[facility]UL[place]ORY - NONE [place] [facility] Dec 18, 2024 01:15 PM [facility] Dec 18, 2024 01:45 PM [facility] - [facility] Dec 18, 2024 02:00 PM [facility] Dec 18, 2024 02:30 PM [facility]GERY [facility] Dec 19, 2024 11:00 AM AMBULATORY - REHAB MEDICIN E [facility] Dec 27, 2024 07:00 AM [facility] Dec 28, 2024 10:00 AM AMBULATORY - MEDICINE [facility] Dec 28, 2024 11:00 AM AMBULATORY - REHAB MEDICIN E [facility] Jan 01, 2025 01:30 PM AMBULATORY - REHAB MEDICIN E [facility] Jan 24, 2025 01:00 PM AMBULATORY - SURGERY [facility] Jan 25, 2025 10:00 AM AMBULATORY - MEDICINE [facility] Active, Pending, and Scheduled Orders This section includes a listing of several types of active, pending, and scheduled orders, including clinic medications orders, diagnostic test orders, procedure orders and consult orders; where the start date of the order is 45 days before the date of the Encounter or 45 days after the date of theEncounter. The data comes from all [facility]. Test Date/Time Test Type Test Details Facility Name Sep 18, 2024 12:00 AM Laboratory - Blood Bank Order TYPE & SCREEN - LAB BLOOD [facility] Sep 27, 2024 12:00 AM Laboratory - Blood Bank Order TYPE & SCREEN - LAB BLOOD [facility] Lab Results: +/- 30 days of the encounter This section includes the Chemistry and Hematology Lab Results on record with [place] for the patient. Radiology Reports and Pathology Reports are provided separately, in subsequent sections. Lab Results This section contains the Chemistry/Hematology Results that were resulted 30 days before or 30 daysafter the date of the Encounter. Date/Time Source Result Type Result - Unit Interpretation Reference Range Comment Sep 25, 2024 02:00 PM [facility] ALBUMIN/CREATININE RATIO URINE Specimen Type: URINE No comment entered. Ordering Provider: KRISTEN BARRETO Report Released Date/Time: Sep 25, 2024 01:52 PM Reporting Lab: [facility] [id number] Performing Lab: [facility] [id number] CREATININE,UR RANDOM 46.1 mg/dL L 58.0-161.0 ALB/CREAT RATIO,UR 19.1 mg/g{creat} <29.9 ALBUMIN,UR 8.8 mg/L <29.9 Sep 25, 2024 11:31 AM [facility] HEMOGLOBIN A1C Specimen Type: BLOOD Comment: Values obtained from A1C measurements can vary. For typical A1C assays, a reported value of 7.0 could actually be between 6.7 and 7.3 if measured by a reference method. A reported value of 9.0 could actually be between 8.7 and 9.3. Ref: http://www.ngs [email or web address]/CAPdata. asp Ordering Provider: KRISTEN BARRETO Report Released Date/Time: Mar 27, 2024 01:40 PM Reporting Lab: [facility] [id number] Performing Lab: [facility] [id number] HEMOGLOBIN A1C 7.4 H 4.0-6.0 Sep 25, 2024 11:31 AM [facility] BASIC METABOLIC PANEL+MG Specimen Type: PLASMA No comment entered. Ordering Provider: KRISTEN BARRETO Report Released Date/Time: Mar 27, 2024 01:40 PM Reporting Lab: [facility] [phone] Performing Lab: [facility] [phone] CREATININE 1.0 mg/dL 0.7-1.2 UREA NITROGEN 22 mg/dL 8-26 GLUCOSE 171 mg/dL H 70-100 SODIUM 140 mmol/L 136-145 POTASSIUM 3.9 mmol/L 3.5-5.1 CHLORIDE 107 mmol/L 98-107 CO2 25 mmol/L 22-29 CALCIUM 9.7 mg/dL 8.4-10.2 MAGNESIUM 2.1 mg/dL 1.6-2.6 ANION GAP 8 mmol/L 5-15 .CREAT EGFR(CKD-EPI) 80 >60 Sep 18, 2024 02:59 PM [facility] PROTHROMBIN TIME/INR Specimen Type: PLASMA No comment entered. Ordering Provider: ADALGISA GARCIA Report Released Date/Time: Sep 18, 2024 02:19 PM Reporting Lab: [facility] [phone] Performing Lab: [facility] [phone] .INR 0.9 0.8-1.1 .PT 11.1 s 9.4-12.5 Sep 18, 2024 02:59 PM [facility] ALBUMIN Specimen Type: PLASMA No comment entered. Ordering Provider: ADALGISA GARCIA Report Released Date/Time: Sep 18, 2024 02:19 PM Reporting Lab: [facility] [phone] Performing Lab: [facility] [phone] ALBUMIN 4.7 g/dL 3.5-5.0 Sep 18, 2024 02:59 PM [facility] BASIC METABOLIC PANEL+MG Specimen Type: PLASMA No comment entered. Ordering Provider: ADALGISA GARCIA Report Released Date/Time: Sep 18, 2024 02:19 PM Reporting Lab: [facility] [phone] Performing Lab: [facility] [address] CREATININE 1.1 mg/dL 0.7-1.2 UREA NITROGEN 14 mg/dL 8-26 GLUCOSE 139 mg/dL H 70-100 SODIUM 141 mmol/L 136-145 POTASSIUM 3.9 mmol/L 3.5-5.1 CHLORIDE 105 mmol/L 98-107 CO2 28 mmol/L 22-29 CALCIUM 9.8 mg/dL 8.4-10.2 MAGNESIUM 1.9 mg/dL 1.6-2.6 ANION GAP 8 mmol/L 5-15 .CREAT EGFR(CKD-EPI) 72 >60 Sep 18, 2024 02:59 PM [facility] HEMOGLOBIN A1C Specimen Type: BLOOD Comment: Values obtained from A1C measurements can vary. For typical A1C assays, a reported value of 7.0 could actually be between 6.7 and 7.3 if measured by a reference method. A reported value of 9.0 could actually be between 8.7 and 9.3. Ref: http://www.ngs [email or web address]/CAPdata. asp Ordering Provider: ADALGISA GARCIA Report Released Date/Time: Sep 18, 2024 02:19 PM Reporting Lab: [facility] [phone] Performing Lab: [facility] [phone] HEMOGLOBIN A1C 7.3 H 4.0-6.0 Sep 18, 2024 02:59 PM [facility] CBC & DIFF Specimen Type: BLOOD Comment: Automated Differential Performed Ordering Provider: ADALGISA GARCIA Report Released Date/Time: Sep 18, 2024 02:19 PM Reporting Lab: [facility] [phone] Performing Lab: [facility] [phone] WBC 8.7 4.0-11.0 RBC 5.40 4.60-6.20 HGB 15.8 g/dL 13.5-17.9 HCT 51.0 41.0-54.0 MCV 94.4 fL 80.0-100.0 MCH 29.3 pg 27.0-33.0 MCHC 31.0 g/dL L 32.0-37.5 PLT 214 150-400 MPV 10.8 fL 9.1-13.0 NEUT 59.6 40.0-80.0 LYMPHS 22.5 15.0-45.0 MONO 12.9 H 2.0-12.0 EOSINO 3.8 0.0-6.0 BASO 0.7 0.0-2.0 RDW 14.0 11.5-14.5 ABS LYMPH 2.0 1.0-4.0 ABS MONO 1.1 H 0.1-1.0 ABS NEUT 5.2 2.0-7.7 ABS EOS 0.3 0.0-0.5 ABS BASO 0.1 0.0-0.2 IG(META,MYELO ,PRO) 0.5 ABS IMMATURE GRAN 0.0 0.0-0.1 Vital Signs: All taken on the encounter date This section contains inpatient and outpatient Vital Signs collected on the date of the Encounter. Date/Time Temperature Pulse Blood Pressure Respiratory Rate SP02 Pain Height Weight Body Mass Index Source Sep 25, 2024 11:52 AM 114/73 [facility] Sep 25, 2024 11:52 AM 97.4 67 157/89 16 95 8 70 192.3 28 [facility] Social History: Smoking Status (Most current) and Tobacco Use (All prior to encounter date) This section includes the most current, and the historical, smoking and tobacco- related health factors from the [place] facility where the Encounter took place. Current Smoking Status This section includes the most current smoking, or tobacco-related health factor, from the [place] facility where the Encounter took place. Date/Time Current Smoking Status Comment Facil ity Nov 19, 2023 08:00 AM VA-TOBACCO FORMER USER [facility] Tobacco Use History This section includes a history of the smoking, or tobacco-related health factors, that were collected on or before the date of the Encounter. The data comes from the [place] facility where the Encounter took place. Date/Time Smoking Status/Tobacco Use Comment F acility Nov 19, 2023 08:00 AM VA-TOBACCO QUIT 15 YRS OR MORE [facility] Jan 28, 2023 09:45 AM VA-TOBACCO FORMER USER [facility] Jan 28, 2023 09:45 AM VA-TOBACCO QUIT 15 YRS OR MORE [facility] Oct 30, 2021 03:00 PM VA-TOBACCO FORMER USER [facility] Oct 30, 2021 03:00 PM VA-TOBACCO QUIT 5 TO < 15 YRS [facility] Aug 17, 2019 11:38 AM VA-TOBACCO FORMER USER [facility] Aug 17, 2019 11:38 AM VA-TOBACCO QUIT 5 TO < 15 YRS [facility] Jan 06, 2018 02:39 PM FORMER TOBACCO USER 7Y OR GREATE R [facility] Jan 28, 2017 12:47 PM FORMER TOBACCO USER 7Y OR GREATE R [facility] Jan 21, 2016 03:04 PM FORMER TOBACCO USER 7Y OR GREATE R [facility] Apr 02, 2015 02:05 PM FORMER TOBACCO USER 7Y OR GREATE R [facility] March 01, 2014 09:10 AM FORMER TOBACCO USER 7Y OR GREATE R [facility] Sep 18, 2013 09:13 AM CDM COPD TOBACCO NON-USER [facility] May 28, 2013 11:05 AM LIFETIME NON-TOBACCO USER [facility] May 25, 2013 12:08 PM FORMER TOBACCO USER 7Y OR GREATE R [facility] Jun 18, 2009 09:48 AM FORMER TOBACCO USER 7Y OR GREATE R [facility] Aug 24, 2008 10:10 AM FORMER TOBACCO USE >1Y <7Y [facility] Advance Directives: All historical and current Section Date Range: From patient's date of to the date document was created. This section includes ALL of a patient's completed or amended [place] Advance and Rescinded Directives. The entries below indicate that a directive exists for the patient, but an actual copy is not included with this document. The data comes from all [place] facilities. Date Advance Directives Provider Source March 08, 2023 ADVANCE DIRECTIVE TASHIODILIA BLANCA [facility] May 02, 2014 ADVANCE DIRECTIVE DISCUSSION QUEENIE SAENZ [facility] May 24, 2013 CLINICAL WARNING SHEYLARGALINDO Anisha [facility] Sep 21, 2011 ADVANCE DIRECTIVE JORDAN ZHANG [facility] Encounter Notes: All associated encounter notes This section contains the clinical notes associated to the Encounter. Date/Time Encounter Note(s) Provider Source Sep 25, 2024 11:53 AM REPORT OF CONTACT: LOCAL TITLE: PATIENT CONTACT NOTE STANDARD TITLE: REPORT OF CONTACT DATE OF NOTE: SEP 25, 2024@11:53 ENTRY DATE: SEP 25, 2024@11:53:18 AUTHOR: RG BROWNE EXP COSIGNER: URGENCY: STATUS: COMPLETED Patient contact Name of : KEENA ROSA Name/Relationship of Contact if other than : Date & Time of Contact: Sep@11:53 Type of Contact: In person Reason for Contact: 2F Clinic Nurse Note Reason for visit: ANES PREOP Temperature: 97.4 F [36.3 C] (09/25/2024 11:52) Pulse: 67 (09/25/2024 11:52) Respirations: 16 (09/25/2024 11:52) Blood pressure: 114/73 (09/25/2024 11:52) Blood pressure re-check: 114/73 (09/25/2024 11:52) Pain: 8 (09/25/2024 11:52) Pulse oximetry: 95% (09/25/2024 11:52) Weight: 192.3 lb [87.23 kg] (09/25/2024 11:52) Pt.'s BP 157/89 upon arrival w/ re-check 114/73. They are asymptomatic at this time. Technical Applications Specialist instructed pt. to monitor BP at home & to notify PCP if elevated x 3 days, to which they are agreeable - provider notified & PCP &/or child care aide RN tagged in note per protocol. /es/ RG BROWNE NUCLEAR MEDICINE PHYSICIAN Signed: 09/25/2024 11:54 Receipt Acknowledged By: 09/25/2024 14:30 /es/ ZENY MARTIN MD PHYSICIAN 09/25/2024 12:02 /es/ IRIS ZHU, RN RN PAVAN,RG [employer] [facility] Sep 25, 2024 08:23 AM H & P NOTE: LOCAL TITLE: H&P HISTORY & PHYSICAL STANDARD TITLE: H & P NOTE DATE OF NOTE: SEP 25, 2024@08:23 ENTRY DATE: SEP 25, 2024@08:23:09 AUTHOR: ROBERT WOLFE EXP COSIGNER: URGENCY: STATUS: COMPLETED Preoperative Anesthesia Assessment Chief Complaint: 69 year old with BMI 27.5 for preoperative evaluation. This is a face to face visit. ----History of present illness Mr. Rosa is a 69 y/o male being evaluated preoperatively for prescreening R-reverse TSA w/surgical date TBD. 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 denies recent cold/flu/fever/COVID sx Pt. instructed to notify surgical team for development of any URI sx prior to surgery ----Allergies Lisinopril: Cough Losartan: Cough Amlodipine: Edema Demerol: Respiratory Arrest Gabapentin: Vet does not recall reaction Duloxetine: Nausea ----VITAL SIGNS ------- HR: 59 (05/12/2024 13:19) BP: 112/75 (05/12/2024 13:19) RR: 18 (05/12/2024 13:19) O2: 96% (05/12/2024 13:19) Temp: 97.7 F [36.5 C] (05/12/2024 13:19) HT: 70 in [177.8 cm] (05/12/2024 13:19) WT: 191.5 lb [86.86 kg] (09/07/2024 12:05) BMI: 27.5 ----Past Surgical History No personal or family history of anesthesia complications 02/22/2025 Right reverse TSA REQUESTED 03/08/2023 Right Total Knee Arthroplasty (COMPLETED) Anesthesia Regional, SAB, R-adductor canal PNB Pre-Induction Note: ASA status: IV METS <4 activity limited by joint pain, also O2 dependent, 2 lpm all the time Airway Exam: Mallampati Class: II Mouth opening: full Neck: full range of motion, armednariz Thyromental distance: >6cm Dentition: full dentures upper/ no lower teeth 01/13/2022 left total hip arthroplasty (COMPLETED) Anes: GA, easy mask with aid, DL x1 by SRNA, G1V, 8.0 mm ETT at 23 cm depth. 09:25 cardiac GI consulted in the preop area due to frequent PVCs (pre- existing), run of V. tach, and shoulder pain (pre-existing, so risk for nerve injury was discussed with patient). Labs drawn with i-STAT and K level is 3.9. Okay to proceed with surgery per cardiology. 01/09/2022 ercp UNKNOWN 10/07/2009 right long / middle finger trigger (COMPLETED) release 11/28/2008 Exploration umbilical wound (COMPLETED) REMOVAL OF SUTURE Other: 10/07/2009 right long /middle finger trigger release 11/28/2008 Exploration umbilical wound inguinal Hernia Repair umbilical Hernia Repair 2019 ----SOCIAL HISTORY ------ Tobacco: No Quit 2003, (1-2PPD x 34 years) age 14 to age 48 Alcohol: No Substance use: No ----FAMILY HISTORY ------ Daughter had [place] ----PAST MEDICAL HISTORY - 1. Diabetic peripheral neuropathy (SNOMED CT 096301441) 2. Sleep apnea (SNOMED CT 51417431) - iVAPS: R: 18, PS: 7-16, EPAP+14, Mirag Quatt Med 3. Severe chronic obstructive pulmonary disease (SNOMED CT 162272689) 4. Personal History of Tobacco Use - Quit 2003, Smoked x 25 years 5. Inguinial Hernia Repair 6. Benign essential hypertension (SNOMED CT 3154567) 7. Erectile dysfunction (SNOMED CT 525222868) 8. Osteoarthrosis involving the spine 9. Hyperlipidemia (SNOMED CT 02765776) 10. Polyp of colon (SNOMED CT 77768119) 11. Open Angle, Primary 12. Morbid obesity (SNOMED CT 934753173) 13. History of adenomatous polyp of colon - By 2008 colonoscopy 14. Hypothyroidism 15. Mild memory disturbance - Due to multiple medical etiologies; Normal NPT 2014 16. History of repair of umbilical hernia 17. Chronic pain following right total knee arthroplasty (SNOMED CT 993258401534 18. Hip pain 19. Iron deficiency anemia 20. Diabetes mellitus type 2 without retinopathy (SNOMED CT 7816083379241) 21. Hypokalemia 22. Obesity 23. Ventricular bigeminy 24. Acute non-ST segment elevation myocardial infarction 25. PVC - premature ventricular contraction (SNOMED CT 221372107) 26. Coronary arteriosclerosis - s/p FRED x1 to RCA (2019) 27. History of radiofrequency ablation operation for arrhythmia - - S/p LV summit PVC ablation 12/22/22 28. Exposure to potentially hazardous substance 29. Exposure to potentially hazardous substance - agent orange ----FUNCTIONAL CAPACITY IN MEASURE OF EXERCISE TOLERANCE BEFORE SURGERY (METS) METS: >4 can walk 2+ blocks w/o CV sx, limited by knee pain and does not do stairs ----MEDICATIONS Medication list reviewed with patient and/or patient's family Active/Pending/ Outpatient Medications 1) ACCU-CHEK GUIDE (GLUCOSE) TEST STRIP USE 1 STRIP ACTIVE EVERY DAY 2) ASPIRIN 81MG EC TAB TAKE ONE TABLET BY MOUTH EVERY ACTIVE DAY TO PREVENT BLOOD CLOTS 3) BRIMONIDINE 0.2%/BRINZOLAMID 1% OPH SUSP INSTILL ONE ACTIVE DROP IN BOTH EYES TWO TIMES A DAY FOR GLAUCOMA 4) CHOLECALCIF 25MCG (D3-1,000UNIT) TAB TAKE ONE TABLET ACTIVE BY MOUTH EVERY DAY 5) DESONIDE 0.05% CREAM APPLY THIN LAYER TOPICALLY TWICE ACTIVE A DAY FOR RASH FOR 2 WEEKS OR UNTIL REDNESS AND ITCHING ARE IMPROVED 6) DICLOFENAC NA 1% TOP GEL APPLY 4 GRAMS TOPICALLY FOUR ACTIVE TIMES A DAY NEEDED TO AFFECTED AREA FOR PAIN TO BILAT WRIST FOR ARTHRITS PAIN DO NOT EXCEED A TOTAL MAX OF 32-GRAMS PER DAY 7) EMPAGLIFLOZIN 25MG TAB TAKE ONE TABLET BY MOUTH EVERY ACTIVE DAY 8) FUROSEMIDE 20MG TAB TAKE ONE TABLET BY MOUTH EVERY ACTIVE DAY 9) ISOSORBIDE MONONITRATE 60MG SA TAB TAKE ONE TABLET BY ACTIVE MOUTH EVERY DAY 10) LATANOPROST 0.005% OPH SOLN INSTILL 1 DROP IN BOTH ACTIVE EYES AT BEDTIME FOR GLAUCOMA REFRIGERATE BOTTLE UNTIL OPENED. 11) LEVOTHYROXINE NA (SYNTHROID) 25MCG TAB TAKE ONE ACTIVE TABLET BY MOUTH EVERY DAY FOR THYROID - TAKE AT LEAST FOUR HOURS AWAY FROM FERROUS GLUCONATE 12) LIDOCAINE 5% OINT APPLY MODERATE AMOUNT TOPICALLY ACTIVE EVERY DAY NEEDED FOR PAIN 13) LORATADINE 10MG TAB TAKE ONE TABLET BY MOUTH EVERY ACTIVE DAY FOR ALLERGIES 14) METFORMIN HCL 1000MG TAB TAKE ONE AND ONE-HALF ACTIVE TABLETS BY MOUTH EVERY MORNING AND TAKE ONE TABLET EVERY EVENING 15) METOPROLOL SUCCINATE 25MG SA TAB TAKE ONE-HALF TABLET ACTIVE BY MOUTH EVERY DAY 16) OMEPRAZOLE 20MG EC CAP TAKE ONE CAPSULE BY MOUTH ACTIVE EVERY DAY FOR HEARTBURN 17) ROSUVASTATIN CA 40MG TAB TAKE ONE TABLET BY MOUTH AT ACTIVE BEDTIME 18) SEMAGLUTIDE 1MG/0.75ML INJ PEN 3ML INJECT 1MG UNDER ACTIVE THE SKIN EVERY WEEK ON WEDNESDAYS - once every 2 weeks but advised by Metabolic to switche to weekly 19) TACROLIMUS 0.1% TOP OINT APPLY SMALL AMOUNT TOPICALLY ACTIVE TWICE A DAY FOR DERMATITIS 20) TIOTROPIUM 18MCG INHL CAP 30 INHALE ONE CAPSULE IN ACTIVE INHALER BY INHALATION EVERY DAY FOR BREATHING - not using 21) TOPIRAMATE 50MG TAB TAKE THREE TABLETS BY MOUTH TWICE ACTIVE A DAY TAKE AT NOON AND BEFORE DINNER TO REDUCE CRAVINGS. 22) VANICREAM TOP CREAM APPLY THIN LAYER TOPICALLY EVERY ACTIVE DAY FOR DRY SKIN 1) BRIMONIDINE 0.2%/BRINZOLAMID 1% OPH SUSP INSTILL ONE PENDING DROP IN BOTH EYES TWO TIMES A DAY 2) LATANOPROST 0.005% OPH SOLN INSTILL 1 DROP IN BOTH PENDING EYES AT BEDTIME REFRIGERATE BOTTLE UNTIL OPENED. 3) PEG 400 0.4%/PROP GLYCOL 0.3% OPH SOLN INSTILL 1 DROP PENDING IN BOTH EYES FOUR TIMES A DAY NEEDED 1) FERROUS GLUCONATE 324MG TAB TAKE ONE TABLET BY MOUTH EVERY DAY FOR IRON SUPPLEMENT AT LEAST 4 HOURS AWAY FROM LEVOTHYROXINE Other: MVI daily Naltrexone: No Buprenorphine: No ---LABORATORY STUDIES -- HGB- HGB 15.8 (09/18/24) HCT- HCT 51.0 (09/18/24) WBC- WBC 8.7 (09/18/24) PLT- PLT 214 (09/18/24) INR- INR 0.9 PLASMA (09/18/24 14:59) APTT- APTT____ GLUCOSE- GLUCOSE 139 H (09/18/24) NA- SODIUM 141 (09/18/24) K- POTASSIUM 3.9 (09/18/24) CL- CHLORIDE 105 (09/18/24) CREATINE- CREATININE 1.1 (09/18/24) BILIRUBIN- BILIRUBIN, TOTAL 0.4 (01/11/24) AST- 01/11/2024 11:16 PLASMA!! AST/SGOT 23 U/L Ref: <=34 ALT- 01/11/2024 11:16 PLASMA!! ALT/SGPT 19 U/L Ref: <=55 GFR- EGFR (05/21) 10/30/2021@1400 84 CREATININE EGFR (CKD-EPI) 09/18/2024@1459 72 A1C- HEMOGLOBIN A1C 7.3 H (09/18/24) Troponin- TROPONIN - NONE FOUND Blood Type- SLT - Lab Tests Selected No selection items chosen for this component. ----DIAGNOSTIC STUDIES -- EK09/25/24 SB w/1st degree AVB, nonspecific T wave abnormality, 58 bpm 02/18/23 SR w/sinus arrhythmia w/1st degree AVB, nonspecific T wave abnormality, 62 bpm ECHO: 06/04/24 Reason For Study: Pericarditis Summary: 1. Normal left ventricular size with an estimated ejection fraction of 50-55%. 2. Mild right ventricular enlargement with mildly reduced systolic function. 3. No hemodynamically significant valve disease. 4. Normal size inferior vena cava with normal collapse. 5. No pericardial effusion. 6. No significant change when compared to the study from 02/11/2023. CARDIAC CATH 07/24/2020 (Atypical Chest pain s/p FRED placement 03/2020) Summary: Moderate CAD Dominance: Right dominant Segment Stenosis Length Characteristics and Comments Left Main Luminal irregularities Proximal LAD Luminal irregularities Mid LAD Luminal irregularities Distal LAD Luminal irregularities 1st Diagonal 50% Proximal Circumflex Luminal irregularities Mid Circumflex 65% iFR: 1 FFR: baseline 1, min 0.89 Distal Circumflex small 1st Obtuse Marginal Luminal irregularities 2nd Obtuse Marginal bifurcating, luminal irregularities Proximal RCA Luminal irregularities Mid RCA Luminal irregularities Distal RCA 25% Luminal irregularities Right PDA 60% Ostium jalied by the RCA stent high take-off Right PAV Segment patent stent (placed 04/07/20) Right PL Segment [address] Segment 2 large FINAL DIAGNOSIS 1. Moderate coronary artery disease of mid LCx (FFR 0.89), proximal first diagonal artery, distal RCA, and proximal rPDA. 2. Patent rPAV stent (placed 04/07/20) without evidence of in-stent restenosis. RECOMMENDATIONS 1. Maximize anti-anginal therapy, consider addition of nitrate therapy to medical regimen. 2. Continue prasugrel minimum 12 months from stent placement 04/07/20. 3. Aspirin 81 mg po daily life-long. 4. High intensity statin. Aggressive risk factor modification CTA CHEST WITH CONTRAST 02/11/2023 Impression: 1. No evidence for pulmonary embolism. 2. Gallbladder appears mildly thickened, nonspecific however if there is concern for gallbladder pathology ultrasound is recommended. 3. Nonspecific small enhancing foci in the liver dome. Dedicated imaging is suggested. PFT 08/26/2017 STANDARD STUDY 09/26/14 02/10/13 FVC L 4.47 2.86 64.0 1.86 2.37 FEV1 L 3.35 1.31 39.2 1.20 1.29 PF L/SEC 7.369 3.220 43.7 3.610 2.940 4.40 [id number] L/SEC 3.276 0.340 10.4 0.690 0.460 1.61 FEV1/FVC % 46 INTERPRETATION: Definite obstruction: FEV1/FVC ratio <CI. Severe ( Fev1>=30% and <50% ref ). Compared to previous test(s) 09/26/14, FVC improved ----Risk Stratification -------- Revised Cardiac Risk Index (RCRI): 1 risk factor or class II CAPRINI score: 6 or high risk ---Physical Exam ------ Weight: 192.3 lb [87.23 kg] (09/25/2024 11:52) Height: 70 in [177.8 cm] (09/25/2024 11:52) BMI: 27.6 Blood Pressure: 114/73 (09/25/2024 11:52) Pulse: 67 (09/25/2024 11:52) Pulse Oximetry: 95% (09/25/2024 11:52) Respiration: 16 (09/25/2024 11:52) Temperature: 97.4 F [36.3 C] (09/25/2024 11:52) Airway Exam: Mallampati Class: I Mouth opening: full Neck: full range of motion, mustache and armendariz Thyromental distance: >6cm Dentition: full uppper dentures Cardiac System: Cardiovascular exam normal: regular rhythm and rate, no murmur Respiratory: Clear to auscultation, normal respiratory rate and effort Mental/Neuro exam: Alert, oriented, calm, cooperative ----ASSESSMENT/PLAN-------- This is a 69Y.O. undergoing evaluation for prescreening R-reverse TSA. The final anesthesia plan will be determined by the providers on the day of surgery. 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 Denies palpitations/presyncope/syn cope/orthopnea/SOB/PND. +Reports intermittent R-sided chest pain that lasts minutes and can be w/ or w/o activity. Could not quantify how often this occurs, but states there's been no increase in frequency or severity. He is noted to have had intermittent R-sided chest pain following pericarditis in January which would last 1-2 hrs at the time. States the current pain is unlike his prior severe chest pain w/TN. METS >4 as pt walks 2+ blocks w/walker. Discussed w/PAC Attending Dr. Coulter, can proceed w/o further workup. Pulmonary: Severe COPD, O2 dep (2LNC during the day, uses 2L via BiPAP at night). Chronic, intermittently productive cough. Not on inhalers and denies exacerbation in the last year. GERD sx controlled on PPI, and BMI overweight (27.5). Pt. is a diabetic, please consider sensitive perioperative insulin protocol for hyperglycemia. Hgb a1c elevated today 7.3%, compared to last check in February at 5.0%. Pt. saw Metabolic provider today and was advised to switch semaglutide back to once weekly. Dermatologic: Denies rash/open wounds. Surgical Team: Pt expressed concerns regarding putting on and removing his R- knee brace, w/just one arm following surgery. States he has aides who come in 3x/week to assist, but they would have a difficult time w/the brace as well. Will add on Ortho team to discuss w/pt. Anesthesia Plan: Amenable to blood transfusions as required. Final plan TBD by anesthesia and surgical teams on DOS. ----Patient Education ----- Discussed NPO, Med Mgmt, Transportation, Radio Commentator Guidelines, Regional (as deemed appropriate), [place], CVC, anesthesia team, IV Access, monitoring, pre/post op expectations & GETA vs MAC Preoperative Medication Management: Hold all multivitamins, herbal supplements, NSAIDS x 7 days prior to surgery Continue Aspirin 81 mg unless otherwise directed by surgical team Hold Metformin day of surgery Hold Empagliflozin 3 days Prior to surgery (Diabetics) Hold Semaglutide x1 week preop /kyle/ ROBERT WOLFE, MARIA ESTHER, AGNP-C ADULT MIRANDA NURSE PRACTITIONER Signed: 09/25/2024 16:27 Receipt Acknowledged By: 09/27/2024 10:46 /kyle/ Ghassan UrbanRN RN ROBERT WOLFE [facility]
--- OUTSIDE RECORDS SUMMARY | 2025-01-16 07:57 | XMS_ITS | Encounter Summary ---
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 Date/Time Encounter Type Encounter Description Reason Provider Source Dec 07, 2024 08:45 AM ORTHOTIC MGMT&TRAING 1ST ENC PROSTHETICS/ORTHOT ICS ICD-10-CM M25.562 Pain in left knee ORLY WEBBER Encounter Template Text not used by [place] Assessments - Encounter Diagnoses This section includes the primary and secondary diagnoses documented for the Encounter. Date/Time Primary/Secondary Diagnosis Diagnosis Name Provider Source Dec 07, 2024 09:38 AM PRIMARY Pain in left knee ORLY WEBBER [facility] Plan of Treatment: Future Appointments (+ 6 months) and Future Tests (+/- 45 days) The Plan of Treatment section includes future care activities for the patient [facility]. This section includes future appointments and future orders which are active, pending or scheduled. Future Appointments This section includes appointments that were scheduled to occur 6 months from the date of the Encounter, up to a maximum of 20 appointments. The data comes from all [place] treatment facilities. Appointment Date/Time Appointment Type Appointme nt Facility Name Dec 14, 2024 10:00 AM AMBUL[facility]ORY - [facility]ICINE [facility] Dec 18, 2024 07:00 AM AM[facility]ATORY - NONE [facility] Dec 18, 2024 01:00 PM AMBULATORY - NONE [facility] Dec 18, 2024 01:15 PM [facility]IC[facility] Dec 18, 2024 01:45 PM [facility] [place] [facility] Dec 18, 2024 02:00 PM [facility] Dec 18, 2024 02:30 PM [facility] Dec 19, 2024 11:00 AM AMBULATORY - REHAB MEDICIN [facility] Dec 27, 2024 07:00 AM [facility] N[facility] Dec 28, 2024 10:00 [facility] Dec 28, 2024 11:00 AM AMBULATORY - REHAB MEDICIN E [facility] Jan 01, 2025 01:30 PM AMBULATORY - REHAB MEDICIN E [facility] Jan 24, 2025 01:00 PM [facility] Jan 25, 2025 10:00 AM [facility] Jan 25, 2025 11:00 AM AMBULATORY - REHAB MEDICIN E [facility] Feb 01, 2025 10:00 AM [facility] Feb 01, 2025 11:00 [facility] Feb 08, 2025 10:00 AM [facility] February 22, 2025 10:00 AM AMBULATORY - MEDICINE [facility] February 23, 2025 11:00 AM AM[facility]ULATORY - NONE [facility] Active, Pending, and Scheduled Orders This section includes a listing of several types of active, pending, and scheduled orders, including clinic medications orders, diagnostic test orders, procedure orders and consult orders; where the start date of the order is 45 days before the date of the Encounter or 45 days after the date of theEncounter. The data comes from all [place] treatment facilities. Test Date/Time Test Type Test Details Facility Name Dec 11, 2024 11:04 AM Consult Order PT PHYSICA L THERAPY OUTPT ORTHO SURGERY [facility] [employer] [facility] Jan 10, 2025 12:00 AM Laboratory - Blood Bank Order TYPE & SCREEN - LAB BLOOD WC [facility] Jan 12, 2025 08:18 AM Consult Order [facility] Cons [employer] [facility] Lab Results: +/- 30 days of the encounter This section includes the Chemistry and Hematology Lab Results on record with [facility] for the patient. Radiology Reports and Pathology Reports are provided separately, in subsequent sections. Lab Results This section contains the Chemistry/Hematology Results that were resulted 30 days before or 30 daysafter the date of the Encounter. Date/Time Source Result Type Result - Unit Interpretation Reference Range Comment Dec 18, 2024 12:16 PM [facility] ALBUMIN Specimen Type: PLASMA No comment entered. Ordering Provider: BENIGNO KIM Report Released Date/Time: Sep 27, 2024 10:57 AM Reporting Lab: [facility] [id number] Performing Lab: [facility] [id number] ALBUMIN 4.4 g/dL 3.5-5.0 Dec 18, 2024 12:16 PM [facility] HEMOGLOBIN A1C Specimen Type: BLOOD Comment: Values obtained from A1C measurements can vary. For typical A1C assays, a reported value of 7.0 could actually be between 6.7 and 7.3 if measured by a reference method. A reported value of 9.0 could actually be between 8.7 and 9.3. Ref: http://www.ngs p.org/CAPdata. asp Ordering Provider: BENIGNO KIM Report Released Date/Time: Sep 27, 2024 10:57 AM Reporting Lab: [facility] [id number] Performing Lab: [facility] [id number] HEMOGLOBIN A1C 7.1 H 4.0-6.0 Dec 18, 2024 12:16 PM [facility] PROTHROMBIN TIME/INR Specimen Type: PLASMA No comment entered. Ordering Provider: BENIGNO KIM Report Released Date/Time: Sep 27, 2024 10:57 AM Reporting Lab: [facility] [id number] Performing Lab: [facility] [id number] .INR 0.9 0.8-1.1 .PT 10.3 s 9.4-12.5 Dec 18, 2024 12:16 PM [facility] BASIC METABOLIC PANEL+MG Specimen Type: PLASMA No comment entered. Ordering Provider: BENIGNO KIM A Report Released Date/Time: Sep 27, 2024 10:57 AM Reporting Lab: [facility] [id number] Performing Lab: [facility] [phone] CREATININE 1.0 mg/dL 0.7-1.2 UREA NITROGEN 19 mg/dL 8-26 GLUCOSE 118 mg/dL H 70-100 SODIUM 139 mmol/L 136-145 POTASSIUM 4.1 mmol/L 3.5-5.1 CHLORIDE 104 mmol/L 98-107 CO2 25 mmol/L 22-29 CALCIUM 9.6 mg/dL 8.4-10.2 MAGNESIUM 2.1 mg/dL 1.6-2.6 ANION GAP 10 mmol/L 5-15 .CREAT EGFR(CKD-EPI) 80 >60 Dec 18, 2024 12:16 PM [facility] CBC & DIFF Specimen Type: BLOOD Comment: Automated Differential Performed Ordering Provider: BENIGNO KIM A Report Released Date/Time: Sep 27, 2024 10:57 AM Reporting Lab: [facility] [id number] Performing Lab: [facility] [id number] WBC 9.5 4.0-11.0 RBC 5.05 4.60-6.20 HGB [...] and tobacco- related health factors from the [place] facility where the Encounter took place. Current Smoking Status This section includes the most current smoking, or tobacco-related health factor, from the [place] facility where the Encounter took place. Date/Time Current Smoking Status Comment Facil ity Nov 19, 2023 08:00 AM VA-TOBACCO FORMER USER [facility] Tobacco Use History This section includes a history of the smoking, or tobacco-related health factors, that were collected on or before the date of the Encounter. The data comes from the [place] facility where the Encounter took place. Date/Time Smoking Status/Tobacco Use Comment F acility Nov 19, 2023 08:00 AM VA-TOBACCO QUIT 15 YRS OR MORE [facility] Jan 28, 2023 09:45 AM VA-TOBACCO FORMER USER [facility] Jan 28, 2023 09:45 AM VA-TOBACCO QUIT 15 YRS OR MORE [facility] Oct 30, 2021 03:00 PM VA-TOBACCO FORMER USER [facility] Oct 30, 2021 03:00 PM VA-TOBACCO QUIT 5 TO < 15 YRS [facility] Aug 17, 2019 11:38 AM VA-TOBACCO FORMER USER [facility] Aug 17, 2019 11:38 AM VA-TOBACCO QUIT 5 TO < 15 YRS [facility] Jan 06, 2018 02:39 PM FORMER TOBACCO USER 7Y OR GREATE R [facility] Jan 28, 2017 12:47 PM FORMER TOBACCO USER 7Y OR GREATE R [facility] Jan 21, 2016 03:04 PM FORMER TOBACCO USER 7Y OR GREATE R [facility] Apr 02, 2015 02:05 PM FORMER TOBACCO USER 7Y OR GREATE R [facility] March 01, 2014 09:10 AM FORMER TOBACCO USER 7Y OR GREATE R [facility] Sep 18, 2013 09:13 AM CDM COPD TOBACCO NON-USER [facility] May 28, 2013 11:05 AM LIFETIME NON-TOBACCO USER [facility] May 25, 2013 12:08 PM FORMER TOBACCO USER 7Y OR GREATE R [facility] Jun 18, 2009 09:48 AM FORMER TOBACCO USER 7Y OR GREATE R [facility] Aug 24, 2008 10:10 AM FORMER TOBACCO USE >1Y <7Y [facility] Advance Directives: All historical and current Section Date Range: From patient's date of to the date document was created. This section includes ALL of a patient's completed or amended [place] Advance and Rescinded Directives. The entries below indicate that a directive exists for the patient, but an actual copy is not included with this document. The data comes from all [place] facilities. Date Advance Directives Provider Source March 08, 2023 ADVANCE DIRECTIVE SAMMYLENOÉ Adore [facility]RE[facility] May 02, 2014 ADVANCE DIRECTIVE DISCUSSION QUEENIE SAENZ [facility] May 24, 2013 CLINICAL WARNING NARCISOGALINDO J [facility] Sep 21, 2011 ADVANCE DIRECTIVE JORDAN ZHANG [facility] Encounter Notes: All associated encounter notes This section contains the clinical notes associated to the Encounter. Date/Time Encounter Note(s) Provider Source Dec 07, 2024 09:35 AM ORTHOTICS PROSTHET ICS CONSULT: LOCAL TITLE: PROSTHETICS CONSULT STANDARD TITLE: ORTHOTICS PROSTHETICS CONSULT DATE OF NOTE: DEC 07, 2024@09:35 ENTRY DATE: DEC 07, 2024@09:35:45 AUTHOR: ORLY WEBBER EXP COSIGNER: URGENCY: STATUS: COMPLETED Provisional Diagnosis: Pain in left Knee(ICD-10-CM M25.562) Reason For Request: Brace Outpatient Left knee brace. ASSESSMENT: presented in clinic for final fitting if knee brace. The seemed very satisfied with fit and function. Side: LEFT Thigh:15 1/2 Knee Center:15 Calf:13 10/19 Size: SMALL EDUCATION: Education was provided to patient during this encounter. Patient indicated readiness to learn about educational information re: the following topics: donning/doffing, wash/care instructions, how to report a concern. Patient indicates readiness to learn, verbalizes understanding, agreement and satisfaction with the treatment plan. Denies further questions. If necessary, patient to be rescheduled upon receipt or completed fabrication of ordered item(s)/device(s). FIT AND ISSUED FROM NON STOCK ITEM : QTY:1 Fusion Knee Brace Email [id number] Supplier: [employer] UOM: FARIDEH Wami Availability: In Stock /kyle/ ORLY WEBBER [employer] (Certified Orthotist) Signed: 12/07/2024 09:38 ORLY WEBBER [facility]
--- OUTSIDE RECORDS SUMMARY | 2025-01-16 07:57 | XMS_ITS | Encounter Summary ---
Author Name [facility] [place] [facility] [place] [facility] [facility] [place] Address [address] [place] [address] Care Team Providers Care Grocery Store Associate Name Role Phone ZENY MARTIN Primary Care [...] PART A Oct 18, 2013 PART A [id number] [phone] Mary ROSA PATIENT MEDICARE (WNR) MEDICARE (M) PART B Oct 18, 2013 PART B [id number] [phone] Mary ROSA EORODNEY PATIENT MEDICARE (WNR) MEDICARE (M) PART A Oct 18, 2013 PART A [id number] Mary ROSA PATIENT Selected Encounter This section includes the information on record at [place] for the Encounter. Date/Time Encounter Type Encounter Description Reason Provider Source Dec 18, 2024 02:00 PM ORTHOTIC MGMT&TRAING 1ST ENC PROSTHETICS/ORTHOT ICS ICD-10-CM M25.562 Pain in left knee ORLY WEBBER Encounter Template Text not used by [facility] Assessments - Encounter Diagnoses This section includes the primary and secondary diagnoses documented for the Encounter. Date/Time Primary/Secondary Diagnosis Diagnosis Name Provider Source Dec 18, 2024 02:23 PM PRIMARY Pain in left knee ORLY WEBBER [facility] Plan of Treatment: Future Appointments (+ 6 months) and Future Tests (+/- 45 days) The Plan of Treatment section includes future care activities for the patient from [facility] [place] [facility] This section includes future appointments and future orders which are active, pending or scheduled. Future Appointments This section includes appointments that were scheduled to occur 6 months from the date of the Encounter, up to a maximum of 20 appointments. The data comes from all [place] treatment [facility]. Appointment Date/Time Appointment Type Appointme nt Facility Name Dec 19, 2024 11:00 AM [facility] Dec 27, 2024 07:00 AM AMBULATORY - NONE [facility] Dec 28, 2024 10:00 AM AMBULATORY - MEDICINE [facility] Dec 28, 2024 11:00 AM AMBULATORY - REHAB [facility] Jan 01, 2025 01:30 PM AMBULATORY - REHAB [facility] Jan 24, 2025 01:00 PM AMBULATORY - SURGERY [facility] Jan 25, 2025 10:00 AM AMBULATORY - MEDICINE [facility] Jan 25, 2025 11:00 AM AMBULATORY - REHAB [facility] Feb 01, 2025 10:00 AM AMBULATORY - MEDICINE [facility] Feb 01, 2025 11:00 AM AMBULATORY - MEDICINE [facility] Feb 08, 2025 10:00 AM AMBULATORY - MEDICINE [facility] February 22, 2025 10:00 AM AMBULATORY - MEDICINE [facility] February 23, 2025 11:00 AM AMBULATORY - NONE [facility] February 23, 2025 11:30 AM AMBULATORY - SURGERY [facility] March 08, 2025 10:00 AM AMBULATORY - MEDICINE [facility] Apr 09, 2025 01:00 PM AMBULATORY - SURGERY [facility] Active, Pending, and Scheduled Orders This section includes a listing of several types of active, pending, and scheduled orders, including clinic medications orders, diagnostic test orders, procedure orders and consult orders; where the start date of the order is 45 days before the date of the Encounter or 45 days after the date of theEncounter. The data comes from all [place] treatment facilities. Test Date/Time Test Type Test Details Facility Name Dec 11, 2024 11:04 AM Consult Order PT PHYSICA L THERAPY OUTPT ORTHO SURGERY Cons Director Blood Bank's Choice [facility] Jan 10, 2025 12:00 AM Laboratory - Blood Bank Order TYPE & SCREEN - LAB BLOOD WC [facility] Jan 12, 2025 08:18 AM Consult Order [facility] Cons Director Blood Bank's [facility] Jan 22, 2025 12:00 AM Laboratory - Chemi stry Order HEMOGLOBIN A1C BLOOD SP ONCE [facility] Jan 22, 2025 12:00 AM Laboratory - Chemi stry Order BASIC METABOLIC PANEL+MG PLASMA SP [facility] Lab Results: +/- 30 days of the encounter This section includes the Chemistry and Hematology Lab Results on record with [facility] for the patient. Radiology Reports and Pathology Reports are provided separately, in subsequent sections. Lab Results This section contains the Chemistry/Hematology Results that were resulted 30 days before or 30 daysafter the date of the Encounter. Date/Time Source Result Type Result - Unit Interpretation Reference Range Comment Jan 11, 2025 12:21 PM [facility] FINGERSTICK GLUCOSE Specimen Type: BLOOD Comment: Save Result Nurse Notified Ordering Provider: ANDREA WOLF Report Released Date/Time: Jan 11, 2025 12:51 PM Reporting Lab: [facility] [place] [phone] Performing Lab: [facility] [place] [address] FINGERSTICK GLUCOSE 246 mg/dL H 70-100 Jan 11, 2025 07:37 AM [facility] CBC Specimen Type: BLOOD No comment entered. Ordering Provider: ANDREA WOLF Report Released Date/Time: Jan 10, 2025 02:40 PM Reporting Lab: [facility] [place] [phone] Performing Lab: [facility] [place] [phone] WBC 9.7 4.0-11.0 RBC 4.50 L 4.60-6.20 HGB 12.9 g/dL L 13.5-17.9 HCT 42.3 41.0-54.0 MCV 94.0 fL 80.0-100.0 MCH 28.7 pg 27.0-33.0 MCHC 30.5 g/dL L 32.0-37.5 PLT 174 150-400 MPV 11.5 fL 9.1-13.0 RDW 13.3 11.5-14.5 Jan 11, 2025 07:37 AM [facility] BASIC METABOLIC PANEL+MG Specimen Type: PLASMA No comment entered. Ordering Provider: ANDREA WOLF Report Released Date/Time: Jan 10, 2025 02:40 PM Reporting Lab: [facility] [place] [phone] Performing Lab: [facility] [place] [phone] CREATININE 1.0 mg/dL 0.7-1.2 UREA NITROGEN 21 mg/dL 8-26 GLUCOSE 203 mg/dL H 70-100 SODIUM 136 mmol/L 136-145 POTASSIUM 4.1 mmol/L 3.5-5.1 CHLORIDE 102 mmol/L 98-107 CO2 23 mmol/L 22-29 CALCIUM 8.8 mg/dL 8.4-10.2 MAGNESIUM 2.0 mg/dL 1.6-2.6 ANION GAP 11 mmol/L 5-15 .CREAT EGFR(CKD-EPI) 80 >60 Jan 11, 2025 06:10 AM [facility] FINGERSTICK GLUCOSE Specimen Type: BLOOD Comment: Save Result Nurse Notified Ordering Provider: Lilli CHRISTENSEN Report Released Date/Time: Jan 11, 2025 07:41 AM Reporting Lab: [facility] [place] [phone] Performing Lab: [facility] [place] [address] FINGERSTICK GLUCOSE 220 mg/dL H 70-100 Jan 10, 2025 08:11 PM [facility] FINGERSTICK GLUCOSE Specimen Type: BLOOD Comment: Save Result Nurse Notified Ordering Provider: Lilli CHRISTENSEN Report Released Date/Time: Jan 10, 2025 08:36 PM Reporting Lab: [facility] [place] [address] Performing Lab: [facility] [place] [address] FINGERSTICK GLUCOSE 239 mg/dL H 70-100 Jan 10, 2025 04:30 PM [facility] FINGERSTICK GLUCOSE Specimen Type: BLOOD Comment: Save Result Nurse Notified Ordering Provider: Lilli CHRISTENSEN Report Released Date/Time: Jan 10, 2025 05:34 PM Reporting Lab: [facility] [place] [phone] Performing Lab: [facility] [place] [address] FINGERSTICK GLUCOSE 190 mg/dL H 70-100 Jan 10, 2025 02:40 PM [facility] FINGERSTICK GLUCOSE Specimen Type: BLOOD Comment: Save Result Nurse Notified Ordering Provider: BENIGNO KIM Report Released Date/Time: Jan 10, 2025 03:01 PM Reporting Lab: [facility] [place] [phone] Performing Lab: [facility] [place] [address] FINGERSTICK GLUCOSE 183 mg/dL H 70-100 Jan 10, 2025 08:35 AM [facility] ACT PART THROMBO TIME Specimen Type: PLASMA Comment: ~Draw on admission. Call IV team to draw on admission. Ordering Provider: BENIGNO KIM Report Released Date/Time: Jan 10, 2025 08:01 AM Reporting Lab: [facility] [place] [phone] Performing Lab: [facility] [place] [address] APTT 31.4 s 25.1-36.5 Jan 10, 2025 08:35 AM [facility] PROTHROMBIN TIME/INR Specimen Type: PLASMA Comment: ~Draw on admission. Call IV team to draw on admission. Ordering Provider: BENIGNO KIM Report Released Date/Time: Jan 10, 2025 08:01 AM Reporting Lab: [facility] [place] [phone] Performing Lab: [facility] [place] [phone] .INR 0.9 0.8-1.1 .PT 10.9 s 9.4-12.5 Jan 10, 2025 08:35 AM [facility] CBC Specimen Type: BLOOD No comment entered. Ordering Provider: BENIGNO KIM A Report Released Date/Time: Jan 10, 2025 08:01 AM Reporting Lab: [facility] [place] [phone] Performing Lab: [facility] [place] [address] WBC 6.6 4.0-11.0 RBC 5.00 4.60-6.20 HGB 14.5 g/dL 13.5-17.9 HCT 46.1 41.0-54.0 MCV 92.2 fL 80.0-100.0 MCH 29.0 pg 27.0-33.0 MCHC 31.5 g/dL L 32.0-37.5 PLT 172 150-400 MPV 10.9 fL 9.1-13.0 RDW 13.7 11.5-14.5 Jan 10, 2025 08:35 AM [facility] FINGERSTICK GLUCOSE Specimen Type: BLOOD Comment: Save Result Ordering Provider: BENIGNO KIM A Report Released Date/Time: Jan 10, 2025 10:31 AM Reporting Lab: [facility] [place] [phone] Performing Lab: [facility] [place] [phone] FINGERSTICK GLUCOSE 155 mg/dL H 70-100 Jan 10, 2025 08:35 AM [facility] BASIC METABOLIC PANEL+MG Specimen Type: PLASMA No comment entered. Ordering Provider: BENIGNO KIM A Report Released Date/Time: Jan 10, 2025 08:01 AM Reporting Lab: [facility] [place] [phone] Performing Lab: [facility] [place] [address] CREATININE 0.9 mg/dL 0.7-1.2 UREA NITROGEN 19 mg/dL 8-26 GLUCOSE 151 mg/dL H 70-100 SODIUM 138 mmol/L 136-145 POTASSIUM 3.9 mmol/L 3.5-5.1 CHLORIDE 106 mmol/L 98-107 CO2 23 mmol/L 22-29 CALCIUM 9.3 mg/dL 8.4-10.2 MAGNESIUM 2.0 mg/dL 1.6-2.6 ANION GAP 9 mmol/L 5-15 .CREAT EGFR(CKD-EPI) >90 >60 Dec 18, 2024 12:16 PM [facility] ALBUMIN Specimen Type: PLASMA No comment entered. Ordering Provider: BENIGNO KIM A Report Released Date/Time: Sep 27, 2024 10:57 AM Reporting Lab: [facility] [place] [phone] Performing Lab: [facility] [place] [phone] ALBUMIN 4.4 g/dL 3.5-5.0 Dec 18, 2024 12:16 PM [facility] PROTHROMBIN TIME/INR Specimen Type: PLASMA No comment entered. Ordering Provider: BENIGNO KIM A Report Released Date/Time: Sep 27, 2024 10:57 AM Reporting Lab: [facility] [place] [phone] Performing Lab: [facility] [place] [address] .INR 0.9 0.8-1.1 .PT 10.3 s 9.4-12.5 Dec 18, 2024 12:16 PM [facility] HEMOGLOBIN A1C Specimen Type: BLOOD Comment: Values [...] Sep 27, 2024 10:57 AM Reporting Lab: [facility] [place] [address] Performing Lab: [facility] [place] [address] HEMOGLOBIN A1C 7.1 H 4.0-6.0 Dec 18, 2024 12:16 PM [facility] BASIC METABOLIC PANEL+MG Specimen Type: PLASMA No comment entered. Ordering Provider: BENIGNO KIM Report Released Date/Time: Sep 27, 2024 10:57 AM Reporting Lab: [facility] [place] [address] Performing Lab: [facility] [place] [phone] CREATININE 1.0 mg/dL 0.7-1.2 UREA NITROGEN 19 mg/dL 8-26 GLUCOSE 118 mg/dL H 70-100 SODIUM 139 mmol/L 136-145 POTASSIUM 4.1 mmol/L 3.5-5.1 CHLORIDE 104 mmol/L 98-107 CO2 25 mmol/L 22-29 CALCIUM 9.6 mg/dL 8.4-10.2 MAGNESIUM 2.1 mg/dL 1.6-2.6 ANION GAP 10 mmol/L 5-15 .CREAT EGFR(CKD-EPI) 80 >60 Dec 18, 2024 12:16 PM [facility] CBC & DIFF Specimen Type: BLOOD Comment: Automated Differential Performed Ordering Provider: BENIGNO KIM Report Released Date/Time: Sep 27, 2024 10:57 AM Reporting Lab: [facility] [place] [phone] Performing Lab: [facility] [address] [facility] [phone] WBC 9.5 4.0-11.0 RBC 5.05 4.60-6.20 HGB [...] ,PRO) 0.5 ABS IMMATURE GRAN 0.1 0.0-0.1 Vital Signs: All taken on the encounter date This section contains inpatient and outpatient Vital Signs collected on the date of the Encounter. Date/Time Temperature Pulse Blood Pressure Respiratory Rate SP02 Pain Height Weight Body Mass Index Source Dec 18, 2024 02:06 PM 72 111/72 95 [facility] Social History: Smoking Status (Most current) and Tobacco Use (All prior to encounter date) This section includes the most current, and the historical, smoking and tobacco- related health factors from the [place] facility where the Encounter took place. Current Smoking Status This section includes the most current smoking, or tobacco-related health factor, from the [place] facility where the Encounter took place. Date/Time Current Smoking Status Comment Serina reece Nov 19, 2023 08:00 AM VA-TOBACCO FORMER USER [facility] Tobacco Use History This section includes a history of the smoking, or tobacco-related health factors, that were collected on or before the date of the Encounter. The data comes from the [place] facility where the Encounter took place. Date/Time Smoking Status/Tobacco Use Comment F acility Nov 19, 2023 08:00 AM VA-TOBACCO QUIT 15 YRS OR MORE [facility] Jan 28, 2023 09:45 AM VA-TOBACCO FORMER USER [facility] Jan 28, 2023 09:45 AM VA-TOBACCO QUIT 15 YRS OR MORE [facility] Oct 30, 2021 03:00 PM VA-TOBACCO FORMER USER [facility] Oct 30, 2021 03:00 PM VA-TOBACCO QUIT 5 TO < 15 YRS [facility] Aug 17, 2019 11:38 AM VA-TOBACCO FORMER USER [facility] Aug 17, 2019 11:38 AM VA-TOBACCO QUIT 5 TO < 15 YRS [facility] Jan 06, 2018 02:39 PM FORMER TOBACCO USER 7Y OR GREATE R [facility] Jan 28, 2017 12:47 PM FORMER TOBACCO USER 7Y OR GREATE R [facility] Jan 21, 2016 03:04 PM FORMER TOBACCO USER 7Y OR GREATE R [facility] Apr 02, 2015 02:05 PM FORMER TOBACCO USER 7Y OR GREATE R [facility] March 01, 2014 09:10 AM FORMER TOBACCO USER 7Y OR GREATE R [facility] Sep 18, 2013 09:13 AM CDM COPD TOBACCO NON-USER [facility] May 28, 2013 11:05 AM LIFETIME NON-TOBACCO USER [facility] May 25, 2013 12:08 PM FORMER TOBACCO USER 7Y OR GREATE R [facility] Jun 18, 2009 09:48 AM FORMER TOBACCO USER 7Y OR GREATE R [facility] Aug 24, 2008 10:10 AM FORMER TOBACCO USE >1Y <7Y [facility] Advance Directives: All historical and current Section Date Range: From patient's date of to the date document was created. This section includes ALL of a patient's completed or amended [place] Advance and Rescinded Directives. The entries below indicate that a directive exists for the patient, but an actual copy is not included with this document. The data comes from all [place] facilities. Date Advance Directives Provider Source March 08, 2023 ADVANCE DIRECTIVE ODILIA CHRISTIANSON [facility] May 02, 2014 ADVANCE DIRECTIVE DISCUSSION QUEENIE SAENZ [facility] May 24, 2013 CLINICAL WARNING SHEYLARGALINDO J [facility] Sep 21, 2011 ADVANCE DIRECTIVE JORDAN ZHANG [facility] Radiology Reports: +/- 30 days of the encounter Radiology Reports For cases when an order for radiology services may have been completed prior to the date of the Encounter, the report list includes the Radiology Reports that were completed up to 30 days before dateof the Encounter. For cases when an order for radiology services may have been completed after the date of the Encounter, the report list also includes the Radiology Reports that were completed up to30 days after date of the Encounter. The data comes from all [place] treatment facilities. Date/Time Radiology Report Provider Source Jan 10, 2025 07:58 AM SHOULDER RIGHT 2-3 VIEWS: KEENA ROSA [id number] -[id number] M Exm Date: JAN 10, 2025@07:58 Req Phys: SHELLI KIM Loc: OR-PACU/01-10-2025@15:42 Img Loc: MAIN X-RAY Service: [place] [address] (Case [id number] COMPLETE) SHOULDER RIGHT 2-3 VIEWS (RAD Detailed) CPT:17980 Proc Modifiers : PORTABLE EXAM, OPERATING ROOM EXAM Reason for Study: right reverse TSA Clinical History: OR 6 shoulder rotator cuff arthropathy My pager number on record is: . I confirm that the pager number/cell phone number above is correct for reporting critical results. My correct contact # for critial results is:Valerio KIM [phone] Trainees only: Enter your staff provider's info here: LAST CREATININE 1.0 (12/18/24) Report Status: Verified Date Reported: JAN 10, 2025 Date Verified: JAN 10, 2025 Charge Master Coordinator E-Sig:/ES/MIRANDA BROOKE MD Report: EXAMINATION: SHOULDER RIGHT 2-3 VIEWS 01/10/2025 7:58 AM INDICATION: right reverse TSA Impression: Right reverse TSA. Components appear well seated. Report Sign Date/Time: 01/10/2025 3:39 PM Primary Interpreting Staff: MIRANDA BROOKE MD, RADIOLOGIST (Charge Master Coordinator) /MIRANDA PAULSON [facility] Encounter Notes: All associated encounter notes This section contains the clinical notes associated to the Encounter. Date/Time Encounter Note(s) Provider Source Dec 18, 2024 02:18 PM ORTHOTICS PROSTHET ICS CONSULT: LOCAL TITLE: PROSTHETICS CONSULT STANDARD TITLE: ORTHOTICS PROSTHETICS CONSULT DATE OF NOTE: DEC 18, 2024@14:18 ENTRY DATE: DEC 18, 2024@14:19:03 AUTHOR: ORLY WEBBER EXP COSIGNER: URGENCY: STATUS: COMPLETED Provisional Diagnosis: Pain in left Knee(ICD-10-CM M25.562) Reason For Request: Brace Outpatient Left knee brace. ADJUSTMENT: presented in clinic with concerns of knee brace fit. The had a slight abrasion of the lateral side of the knee he had placed a bandage on. The veterans brace was then bent to widen the area of clearance to avoid further concern. The stated that he felt immediate relief. He was also educated as the brace sat too low. The has been asked to contact our office should he have any further questions or concerns. EDUCATION: Education was provided to patient during this encounter. Patient indicated readiness to learn about educational information re: the following topics: donning/doffing, wash/care instructions, how to report a concern. Patient indicates readiness to learn, verbalizes understanding, agreement and satisfaction with the treatment plan. Denies further questions. If necessary, patient to be rescheduled upon receipt or completed fabrication of ordered item(s)/device(s). No brace issued: /kyle/ ORLY WEBBER Health Registered Dental Assistant (Mixer Blender) Signed: 12/18/2024 14:23 ORLY WEBBER [facility]
--- OUTSIDE RECORDS SUMMARY | 2025-01-16 07:58 | XMS_ITS | Encounter Summary ---
Author Name [facility] [place] [facility] [place] [facility] [place] Address [address] [place] [address] Care Team Providers Care Transmission Superintendent Name Role Phone ZENY MARTIN Primary Care [...] PART A Oct 18, 2013 PART A [id number] [phone] Mary ROSA PATIENT MEDICARE (WNR) MEDICARE (M) PART B Oct 18, 2013 PART B [id number] [phone] Mary ROSA EORODNEY PATIENT MEDICARE (WNR) MEDICARE (M) PART A Oct 18, 2013 PART A [id number] [phone] Mary ROSA PATIENT Selected Encounter This section includes the information on record at [place] for the Encounter. Date/Time Encounter Type Encounter Description Reason Provider Source Jan 01, 2025 01:30 PM SELF CARE MNGMENT TRAINING OCCUPATIONAL THERAPY ICD-10-CM M25.511 Pain in right shoulder FRANKLIN RUSSELL Encounter Template Text not used by [facility] Assessments - Encounter Diagnoses This section includes the primary and secondary diagnoses documented for the Encounter. Date/Time Primary/Secondary Diagnosis Diagnosis Name Provider Source Jan 01, 2025 02:28 PM PRIMARY Pain in right shoulder FRANKLIN RUSSELL [facility] Plan of Treatment: Future Appointments (+ 6 months) and Future Tests (+/- 45 days) The Plan of Treatment section includes future care activities for the patient from all [place] treatmentfacilities. This section includes future appointments and future orders which are active, pending or scheduled. Future Appointments This section includes appointments that were scheduled to occur 6 months from the date of the Encounter, up to a maximum of 20 appointments. The data comes from all [facility]. Appointment Date/Time Appointment Type Appointme nt Facility Name Jan 24, 2025 01:00 PM AMBULATORY - SURGERY [facility] Jan 25, 2025 10:00 AM AMBULATORY - MEDICINE [facility] Jan 25, 2025 11:00 AM AMBULATORY - REHAB MEDICIN E [facility] Feb 01, 2025 10:00 AM AMBULATORY - MEDICINE [facility] Feb 01, 2025 11:00 AM AMBULATORY - MEDICINE [facility] Feb 08, 2025 10:00 AM AMBULATORY - MEDICINE [facility] February 22, 2025 10:00 AM AMBULATORY - MEDICINE [facility] February 23, 2025 11:00 AM AMBULATORY - NONE [facility] February 23, 2025 11:30 AM AMBULATORY - SURGERY [facility] March 08, 2025 10:00 AM AMBULATORY - MEDICINE [facility] Apr 09, 2025 01:00 PM AMBULATORY - SURGERY [facility] Active, Pending, and Scheduled Orders This section includes a listing of several types of active, pending, and scheduled orders, including clinic medications orders, diagnostic test orders, procedure orders and consult orders; where the start date of the order is 45 days before the date of the Encounter or 45 days after the date of theEncounter. The data comes from all [facility]. Test Date/Time Test Type Test Details Facility Name Dec 11, 2024 11:04 AM Consult Order PT PHYSICA L THERAPY OUTPT ORTHO SURGERY [employer] [facility] Jan 10, 2025 12:00 AM Laboratory - Blood Bank Order TYPE & SCREEN - LAB BLOOD WC [facility] Jan 12, 2025 08:18 AM Consult Order [facility] [employer] [facility] Jan 22, 2025 12:00 AM Laboratory - Chemi stry Order HEMOGLOBIN A1C BLOOD SP ONCE [facility] Jan 22, 2025 12:00 AM Laboratory - Chemi stry Order BASIC METABOLIC PANEL+MG PLASMA SP [facility] Lab Results: +/- 30 days of the encounter This section includes the Chemistry and Hematology Lab Results on record with [place] for the patient. Radiology Reports and Pathology Reports are provided separately, in subsequent sections. Lab Results This section contains the Chemistry/Hematology Results that were resulted 30 days before or 30 daysafter the date of the Encounter. Date/Time Source Result Type Result - Unit Interpretation Reference Range Comment Jan 11, 2025 12:21 PM [facility] FINGERSTICK GLUCOSE Specimen Type: BLOOD Comment: Save Result Nurse Notified Ordering Provider: ANDREA WOLF Report Released Date/Time: Jan 11, 2025 12:51 PM Reporting Lab: [facility] [phone] Performing Lab: [facility] [address] FINGERSTICK GLUCOSE 246 mg/dL H 70-100 Jan 11, 2025 07:37 AM [facility] CBC Specimen Type: BLOOD No comment entered. Ordering Provider: ANDREA WOLF Report Released Date/Time: Jan 10, 2025 02:40 PM Reporting Lab: [facility] [id number] Performing Lab: [facility] [phone] WBC 9.7 4.0-11.0 RBC 4.50 L 4.60-6.20 HGB 12.9 g/dL L 13.5-17.9 HCT 42.3 41.0-54.0 MCV 94.0 fL 80.0-100.0 MCH 28.7 pg 27.0-33.0 MCHC 30.5 g/dL L 32.0-37.5 PLT 174 150-400 MPV 11.5 fL 9.1-13.0 RDW 13.3 11.5-14.5 Jan 11, 2025 07:37 AM [facility] BASIC METABOLIC PANEL+MG Specimen Type: PLASMA No comment entered. Ordering Provider: ANDREA WOLF Report Released Date/Time: Jan 10, 2025 02:40 PM Reporting Lab: [facility] [address] Performing Lab: [facility] [address] CREATININE 1.0 mg/dL 0.7-1.2 UREA NITROGEN 21 mg/dL 8-26 GLUCOSE 203 mg/dL H 70-100 SODIUM 136 mmol/L 136-145 POTASSIUM 4.1 mmol/L 3.5-5.1 CHLORIDE 102 mmol/L 98-107 CO2 23 mmol/L 22-29 CALCIUM 8.8 mg/dL 8.4-10.2 MAGNESIUM 2.0 mg/dL 1.6-2.6 ANION GAP 11 mmol/L 5-15 .CREAT EGFR(CKD-EPI) 80 >60 Jan 11, 2025 06:10 AM [facility] FINGERSTICK GLUCOSE Specimen Type: BLOOD Comment: Save Result Nurse Notified Ordering Provider: Lilli CHRISTENSEN Report Released Date/Time: Jan 11, 2025 07:41 AM Reporting Lab: [facility] [address] Performing Lab: [facility] [address] FINGERSTICK GLUCOSE 220 mg/dL H 70-100 Jan 10, 2025 08:11 PM [facility] FINGERSTICK GLUCOSE Specimen Type: BLOOD Comment: Save Result Nurse Notified Ordering Provider: Lilli CHRISTENSEN Report Released Date/Time: Jan 10, 2025 08:36 PM Reporting Lab: [facility] [phone] Performing Lab: [facility] [address] FINGERSTICK GLUCOSE 239 mg/dL H 70-100 Jan 10, 2025 04:30 PM [facility] FINGERSTICK GLUCOSE Specimen Type: BLOOD Comment: Save Result Nurse Notified Ordering Provider: Lilli CHRISTENSEN Report Released Date/Time: Jan 10, 2025 05:34 PM Reporting Lab: [facility] [phone] Performing Lab: [facility] [address] FINGERSTICK GLUCOSE 190 mg/dL H 70-100 Jan 10, 2025 02:40 PM [facility] FINGERSTICK GLUCOSE Specimen Type: BLOOD Comment: Save Result Nurse Notified Ordering Provider: BENIGNO KIM Report Released Date/Time: Jan 10, 2025 03:01 PM Reporting Lab: [facility] [address] Performing Lab: [facility] [address] FINGERSTICK GLUCOSE 183 mg/dL H 70-100 Jan 10, 2025 08:35 AM [facility] PROTHROMBIN TIME/INR Specimen Type: PLASMA Comment: ~Draw on admission. Call IV team to draw on admission. Ordering Provider: BENIGNO KIM Report Released Date/Time: Jan 10, 2025 08:01 AM Reporting Lab: [facility] [address] Performing Lab: [facility] [address] .INR 0.9 0.8-1.1 .PT 10.9 s 9.4-12.5 Jan 10, 2025 08:35 AM [facility] CBC Specimen Type: BLOOD No comment entered. Ordering Provider: BENIGNO KIM A Report Released Date/Time: Jan 10, 2025 08:01 AM Reporting Lab: [facility] [address] Performing Lab: [facility] [address] WBC 6.6 4.0-11.0 RBC 5.00 4.60-6.20 HGB 14.5 g/dL 13.5-17.9 HCT 46.1 41.0-54.0 MCV 92.2 fL 80.0-100.0 MCH 29.0 pg 27.0-33.0 MCHC 31.5 g/dL L 32.0-37.5 PLT 172 150-400 MPV 10.9 fL 9.1-13.0 RDW 13.7 11.5-14.5 Jan 10, 2025 08:35 AM [facility] ACT PART THROMBO TIME Specimen Type: PLASMA Comment: ~Draw on admission. Call IV team to draw on admission. Ordering Provider: BEINGNO KIM Report Released Date/Time: Jan 10, 2025 08:01 AM Reporting Lab: [facility] [phone] Performing Lab: [facility] [address] APTT 31.4 s 25.1-36.5 Jan 10, 2025 08:35 AM [facility] BASIC METABOLIC PANEL+MG Specimen Type: PLASMA No comment entered. Ordering Provider: JULIO,RAMC ES A Report Released Date/Time: Jan 10, 2025 08:01 AM Reporting Lab: [facility] [address] Performing Lab: [facility] [address] CREATININE 0.9 mg/dL 0.7-1.2 UREA NITROGEN 19 mg/dL 8-26 GLUCOSE 151 mg/dL H 70-100 SODIUM 138 mmol/L 136-145 POTASSIUM 3.9 mmol/L 3.5-5.1 CHLORIDE 106 mmol/L 98-107 CO2 23 mmol/L 22-29 CALCIUM 9.3 mg/dL 8.4-10.2 MAGNESIUM 2.0 mg/dL 1.6-2.6 ANION GAP 9 mmol/L 5-15 .CREAT EGFR(CKD-EPI) >90 >60 Jan 10, 2025 08:35 AM [facility] FINGERSTICK GLUCOSE Specimen Type: BLOOD Comment: Save Result Ordering Provider: BENIGNO KIM Report Released Date/Time: Jan 10, 2025 10:31 AM Reporting Lab: [facility] [address] Performing Lab: [facility] [address] FINGERSTICK GLUCOSE 155 mg/dL H 70-100 Dec 18, 2024 12:16 PM [facility] ALBUMIN Specimen Type: PLASMA No comment entered. Ordering Provider: BENIGNO KIM Report Released Date/Time: Sep 27, 2024 10:57 AM Reporting Lab: [facility] [address] Performing Lab: [facility] [address] ALBUMIN 4.4 g/dL 3.5-5.0 Dec 18, 2024 12:16 PM [facility] HEMOGLOBIN A1C Specimen Type: BLOOD Comment: [...] Sep 27, 2024 10:57 AM Reporting Lab: [facility] [address] Performing Lab: [facility] [address] HEMOGLOBIN A1C 7.1 H 4.0-6.0 Dec 18, 2024 12:16 PM [facility] PROTHROMBIN TIME/INR Specimen Type: PLASMA No comment entered. Ordering Provider: BENIGNO KIM Report Released Date/Time: Sep 27, 2024 10:57 AM Reporting Lab: [facility] [address] Performing Lab: [facility] [address] .INR 0.9 0.8-1.1 .PT 10.3 s 9.4-12.5 Dec 18, 2024 12:16 PM [facility] BASIC METABOLIC PANEL+MG Specimen Type: PLASMA No comment entered. Ordering Provider: BENIGNO KIM A Report Released Date/Time: Sep 27, 2024 10:57 AM Reporting Lab: [facility] [address] Performing Lab: [facility] [address] CREATININE 1.0 mg/dL 0.7-1.2 UREA NITROGEN 19 mg/dL 8-26 GLUCOSE 118 mg/dL H 70-100 SODIUM 139 mmol/L 136-145 POTASSIUM 4.1 mmol/L 3.5-5.1 CHLORIDE 104 mmol/L 98-107 CO2 25 mmol/L 22-29 CALCIUM 9.6 mg/dL 8.4-10.2 MAGNESIUM 2.1 mg/dL 1.6-2.6 ANION GAP 10 mmol/L 5-15 .CREAT EGFR(CKD-EPI) 80 >60 Dec 18, 2024 12:16 PM [facility] CBC & DIFF Specimen Type: BLOOD Comment: Automated Differential Performed Ordering Provider: BENIGNO KIM A Report Released Date/Time: Sep 27, 2024 10:57 AM Reporting Lab: [facility] [address] Performing Lab: [facility] [address] WBC 9.5 4.0-11.0 RBC 5.05 4.60-6.20 HGB [...] and tobacco- related health factors from the [place] facility where the Encounter took place. Current Smoking Status This section includes the most current smoking, or tobacco-related health factor, from the [place] facility where the Encounter took place. Date/Time Current Smoking Status Comment Facil ity Nov 19, 2023 08:00 AM VA-TOBACCO FORMER USER [facility] Tobacco Use History This section includes a history of the smoking, or tobacco-related health factors, that were collected on or before the date of the Encounter. The data comes from the [place] facility where the Encounter took place. Date/Time Smoking Status/Tobacco Use Comment F acility Nov 19, 2023 08:00 AM VA-TOBACCO QUIT 15 YRS OR MORE [facility] Jan 28, 2023 09:45 AM VA-TOBACCO FORMER USER [facility] Jan 28, 2023 09:45 AM VA-TOBACCO QUIT 15 YRS OR MORE [facility] Oct 30, 2021 03:00 PM VA-TOBACCO FORMER USER [facility] Oct 30, 2021 03:00 PM VA-TOBACCO QUIT 5 TO < 15 YRS [facility] Aug 17, 2019 11:38 AM VA-TOBACCO FORMER USER [facility] Aug 17, 2019 11:38 AM VA-TOBACCO QUIT 5 TO < 15 YRS [facility] Jan 06, 2018 02:39 PM FORMER TOBACCO USER 7Y OR GREATE R [facility] Jan 28, 2017 12:47 PM FORMER TOBACCO USER 7Y OR GREATE R [facility] Jan 21, 2016 03:04 PM FORMER TOBACCO USER 7Y OR GREATE R [facility] Apr 02, 2015 02:05 PM FORMER TOBACCO USER 7Y OR GREATE R [facility] March 01, 2014 09:10 AM FORMER TOBACCO USER 7Y OR GREATE R [facility] Sep 18, 2013 09:13 AM CDM COPD TOBACCO NON-USER [facility] May 28, 2013 11:05 AM LIFETIME NON-TOBACCO USER [facility] May 25, 2013 12:08 PM FORMER TOBACCO USER 7Y OR GREATE R [facility] Jun 18, 2009 09:48 AM FORMER TOBACCO USER 7Y OR GREATE R [facility] Aug 24, 2008 10:10 AM FORMER TOBACCO USE >1Y <7Y [facility] Advance Directives: All historical and current Section Date Range: From patient's date of to the date document was created. This section includes ALL of a patient's completed or amended [place] Advance and Rescinded Directives. The entries below indicate that a directive exists for the patient, but an actual copy is not included with this document. The data comes from all [facility]. Date Advance Directives Provider Source March 08, 2023 ADVANCE DIRECTIVE SAMMYLENOÉ Adore URENA [facility] May 02, 2014 ADVANCE DIRECTIVE DISCUSSION QUEENIE SAENZ [facility] May 24, 2013 CLINICAL WARNING SHEYLARGALINDO [facility] Sep 21, 2011 ADVANCE DIRECTIVE JORDAN ZHANG [facility] Radiology Reports: +/- 30 days of [...] the Encounter. The data comes from all [place] treatment facilities. Date/Time Radiology Report Provider Source Jan 10, 2025 07:58 AM SHOULDER RIGHT 2-3 VIEWS: KEENA ROSA [id number] -[id number] M Exm Date: JAN 10, 2025@07:58 Req Phys: SHELLI KIM Loc: OR-PACU/01-10-2025@15:42 Img Loc: MAIN X-RAY Service: [place] [address] (Case [id number] COMPLETE) SHOULDER RIGHT 2-3 VIEWS (RAD Detailed) CPT:27801 Proc Modifiers : PORTABLE EXAM, OPERATING ROOM EXAM Reason for Study: right reverse TSA Clinical History: OR 6 shoulder rotator cuff arthropathy My pager number on record is: . I confirm that the pager number/cell phone number above is correct for reporting critical results. My correct contact # for critial results is:Valerio KIM [phone] Trainees only: Enter your staff provider's info here: LAST CREATININE 1.0 (12/18/24) Report Status: Verified Date Reported: JAN 10, 2025 Date Verified: JAN 10, 2025 Waste Minimization Technician E-Sig:/ES/MIRANDA BROOKE MD Report: EXAMINATION: SHOULDER RIGHT 2-3 VIEWS 01/10/2025 7:58 AM INDICATION: right reverse TSA Impression: Right reverse TSA. Components appear well seated. Report Sign Date/Time: 01/10/2025 3:39 PM Primary Interpreting Staff: MIRANDA BROOKE MD, RADIOLOGIST (Waste Minimization Technician) /RTS MIRANDA BROOKE [facility] Encounter Notes: All associated encounter notes This section contains the clinical notes associated to the Encounter. Date/Time Encounter Note(s) Provider Source Jan 01, 2025 08:01 AM OCCUPATIONAL THERA PY CONSULT: [facility] TITLE: OCCUPATIONAL THERAPY CONSULT STANDARD TITLE: OCCUPATIONAL THERAPY CONSULT DATE OF NOTE: JAN 01, 2025@08:01 ENTRY DATE: JAN 01, 2025@08:01:53 AUTHOR: FRANKLIN RUSSELL EXP COSIGNER: URGENCY: STATUS: COMPLETED OCCUPATIONAL THERAPY PRE-OPERATIVE EVALUATION NOTE Referring provider: SHELLI KIM Diagnosis for which patient is referred to OT: Pain in right Shoulder(ICD-10- CM M25.511) Planned procedure: Right Reverse TSA Planned procedure date: Dec Anticipated Precautions: Surgical shoulder- NWB (no lifting, pushing or pulling), no AROM (external rotation, abduction or flexion), rTSA no internal rotation and adduction Patient seen for 40 minutes OT Evaluation 15 minutes, Low Complexity Self-care management trainin minutes ASSESSMENT: Saleem is a 69 year old referred to outpatient OT for pre-operative appointment. At baseline saleem lives with his sister and is participating in I/ADL's with assist from HHN for medication management, showering and dressing from home healthcare. Saleem is ind ambulating at baseline with a FWW in the home and 4WW in the community on 2L of 02 at baseline. Vet currently limited by limited hip ROM and memory impairments. [place] participated in OT session addressing AE, DME, and falls prevention education. Education and demonstration provided on anticipated precautions following surgery with ADLs and review of AE completed. Vet verbalized understanding of education provided with good teachback. Vet did not demonstrate need for ongoing outpatient OT. Recommend new inpatient OT consult post-op day 1 and Social Work is following per chart review. PLAN: Vet discharged from outpatient OT. SHORT TERM GOALS TO BE MET AFTER THIS SESSION: 1. Vet will verbalize good understanding of proper care, use, adjustment and installation of all recommended DME for bathroom of residence. 2. Vet will verbalize good understanding of proper use of AE to promote increased independence with ADLs post-procedure. 3. Vet will verbalize good understanding of fall prevention strategies. PATIENT EDUCATION ON TREATMENT PLAN: Patient indicates readiness to learn, verbalizes understanding, agreement and satisfaction with the treatment plan. Denies further questions. ISSUED: -Vendor to install 18 inch horizontal grab bar on the left as youre sitting on the toilet -Vendor to install ramp to front entrance of home- 2-3 steps to enter CURRENT MEDICAL HISTORY: Diabetic peripheral neuropathy (SCT 4247Sleep apnea (SCT [id number]) Severe chronic obstructive pulmonary disPersonal History of Tobacco Use (ICD-9-CM V15.82) Inguinial Hernia Repair (ICD-9-CM 799.9)Benign essential hypertension ([facility] [id number]) Erectile dysfunction ([facility] [id number]) Osteoarthrosis involving the spine (ICD-9-CM 715.98) Hyperlipidemia ([facility] 44914939) Polyp of colon ([facility] [id number]) Open Angle, Primary (ICD-9-CM 365.11) Morbid obesity ([facility] [id number]) History of adenomatous polyp of colon (SHypothyroidism ([facility] 64454901) Mild memory disturbance ([facility] [id number]) History of repair of umbilical hernia ([facility] 492120130) Chronic pain following right total knee Hip pain ([facility] 25876771) Iron deficiency anemia ([facility] 46620008) Diabetes mellitus type 2 without retinopathy ([facility] [id number]) Hypokalemia ([facility] 30206179) Obesity ([facility] 690244222) Ventricular bigeminy ([facility] 24140223) Acute non-ST segment elevation myocardial infarction ([facility] [id number]) PVC - premature ventricular contraction Coronary arteriosclerosis ([facility] [id number]) History of radiofrequency ablation operaExposure to potentially hazardous substance ([facility] [id number]) Exposure to potentially hazardous substa SUBJECTIVE: Knee replaced last year and hip replaced 2 year prior reporting he went to [facility] after with needing Ax2 to ambulate after hip replacement CONTEXT SOCIAL HISTORY/HOME ENVIRONMENT: Lives: Lives with sister, reports she is blind as a bat and unable to assist Primary Support System: HHN and 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 MACHINE OPERATOR Son's live nearby (present in pre-op appt today) reporting intermittent family availability Lives in: 2 level home Home accessibility comments: - 2-3 steps to enter no railing, reports stairs are becoming difficult - bedroom/bathroom on main level, with hospital bed - Tub shower with grab bars and HHSH and floor to ceiling pole, has a shower chair but prefers to stand, tub bench doesnt fit - Tall height toilet with bidet with one grab bar on R side, toilet frame does not work with bidet - Laundry in lower level: stair glide down Planned supports in place after procedure: Return to prior living environment unless needing STR, open to this Plans for driving/transportation: Saul/Idania (family) or care cab PRE-SURGERY LEVEL OF INDEPENDENCE: ADLs: Assist with showering and dressing socks, pants, shirt owns hip kit and only uses shoe horn at this time and gets assist for the rest ADL transfers: Modified independent with bed rails Functional mobility: Rollator- in the community (doesnt fit through doorways in home) FWW in the home with portable 02 attached Falls in the last 6 months: Reports none IADLs: Cooking: I with meal planning, meal preparation, grocery shopping Cleaning: INDUSTRIAL MACHINE OPERATOR Laundry: INDUSTRIAL MACHINE OPERATOR Driving: I Medication management: HHN setup in a med ready (2x a day) manager case management: I Sleep: 4-6 hours on average Health Maintenance: Walking Handedness: R ROM: WFL for L, limited ROM on R Sensation: B UEs: Numbness/tingling B LEs: Numbness/tingling OBJECTIVE: Vitals: Obtained during concurrent pre operative appointments today Any recent falls/trauma, worsening balance/coordination, dizziness/lightheadedness/fa inting, blurred vision, nausea/vomiting? no Education on proper care, use, adjustment and installation of the following items: -Shower chair- education to utilize to prevent falls -long bath sponge Handouts administered: *TSA Shoulder [facility] Education Packet *1 handed dressing handout- Donning/doffing tshirt Education on anticipated precautions and mobilization after surgery: *Patients are typically mobilized with staff assist only until cleared, post- operatively day 1 *Vet educated on behavioral health worker wearing schedule of sling with exception to doff for dressing, bathing and participation in HEP *No AROM of shoulder including reaching, pushing, pulling and supporting body weight with hand *No lifting of objects more than the weight of a pen, pencil or foam exercise ball *Participate in HEP with elbow and wrist movements to reduce swelling, minimize pain, maintain UE ROM as instructed post operatively with progression in passive shoulder ROM 2 week and active shoulder ROM 6 week follow up visits with PT. *Anticipate recieving an ice machine after surgery Education on participation in I/ADLs post-op: *Educated on bathing and showering tips including doffing sling for axillary cares. Demonstrated passive shoulder abduction. Provided option for a shower chair to keep arm supported while bathing *Educated on 1 handed dressing techniques including donning affected limb first, loose fitted clothing, donning sock 1 handed demonstration and recommendation to practice daily routine 1 handed *No internal reaching behind back with affected shoulder, use long handled sponge for washing back *Organize daily routine beforehand, consider stocking up on food and necessary items, prepare meals and complete errands with anticipated 2 week- [address] restrictions. Make arrangements for rides especially to follow up PT appointments COGNITION: - Orientation: Oriented to self, place - Attention span: Attended to full session without difficulty - Commands: Able to follow 1 step commands, requires cues - Communication: Able to make needs known with assist from 2 sons in session - Safety Awareness: Appears may be impaired with reporting limited to no use of his AE/DME, reports only changing clothes and socks when HHC is available 3x a week EMOTIONAL/BEHAVIORAL: Appropriate affect, Eye contact, Acknowledges others, Initiates/engages conversation, Calm/pleasant, Cooperative OCCUPATIONAL THERAPY EVALUATION COMPLEXITY Identifying and reporting the complexity level of an evaluation focuses on the first three of these factors--profile and history, assessment and determination of deficits, and clinical decision making. These three factors must be scored and defensible documentation written to support the choice of a level. (Information taken from: https://www.[facility].org) PROFILE AND HISTORY (including chart view) Brief history of medical and/or therapy records relating to the presenting problem (low complexity) ASSESSMENT & PERFORMANCE DEFICITS (select all that apply): Physical & Cognition 1-3 performance deficits (Low complexity) LEVEL OF CLINICAL DECISION MAKING Problem-focused assessment(s), consideration of a limited number of treatment options, presents with no comorbidities and modification of tasks or assistance is not necessary.(Low complexity) LOW COMPLEXITY Brief history of medical/or therapy records relating to the presenting problem. An assessment(s) that identifies 1-3 performance deficits that result in activity limitation and/or participating restrictions. Includes analysis of the occupational profile, analysis of date from problem- focused assessment(s), and consideration of a limited number of treatment options. Patient presents with no comorbidities that affect occupational performance. Modification of tasks or assistance with assessment(s) is not necessary to enable completion of evaluation component. /kyle/ FRANKLIN RUSSELL Occupational Therapist Signed: 01/01/2025 14:30 FRANKLIN RUSSELL [facility]
--- OUTSIDE RECORDS SUMMARY | 2025-01-16 07:58 | XMS_ITS | Encounter Summary ---
Author Name [facility] Organization [facility] Address [address] [place] [address] Care Team Providers Care Pattern Data Operator Name Role Phone ZENY MARTIN Primary Care [...] PART A Oct 18, 2013 PART A [id number] [phone] Mary ROSA PATIENT MEDICARE (WNR) MEDICARE (M) PART B Oct 18, 2013 PART B [id number] [phone] Mary ROSA EONARD PATIENT MEDICARE (WNR) MEDICARE (M) PART A Oct 18, 2013 PART A [id number] Mary ROSA PATIENT Selected Encounter This section includes the information on record at [place] for the Encounter. Date/Time Encounter Type Encounter Description Reason Provider Source Nov 15, 2024 02:39 PM CASE MANAGEMENT PRIMARY CARE/MEDICINE ICD-10-CM Z65.8 Oth problems related to psychosocial circumstances ANDREA DUQUE IHBandar Encounter Template Text not used by [place] Assessments - Encounter Diagnoses This section includes the primary and secondary diagnoses documented for the Encounter. Date/Time Primary/Secondary Diagnosis Diagnosis Name Provider Source Nov 15, 2024 02:47 PM PRIMARY Oth problems related to psychosocial circumstances ANDREA DUQUE [facility] Plan of Treatment: Future Appointments (+ 6 months) and Future Tests (+/- 45 days) The Plan of Treatment section includes future care activities for the [facility] This section includes future appointments and future orders which are active, pending or scheduled. Future Appointments This section includes appointments that were scheduled to occur 6 months from the date of the Encounter, up to a maximum of 20 appointments. The data comes from all [place] treatment [facility]. Appointment Date/Time Appointment Type Appointme nt Facility Name Nov 30, 2024 10:00 AM AM[place] [facility] Dec 07, 2024 08:45 AM [place] [facility] Dec 14, 2024 10:00 [facility] Dec 18, 2024 07:00 AM [facility] [place] [facility] Dec 18, 2024 01:00 PM [place]ORY [place] [facility] Dec 18, 2024 01:15 PM [place] [facility] Dec 18, 2024 01:45 PM [place] [facility] Dec 18, 2024 02:00 PM [place] [facility] Dec 18, 2024 02:30 PM [place] [facility] Dec 19, 2024 11:00 AM AMBULATORY - REHAB MEDICIN [facility] Dec 27, 2024 07:00 AM [place] [facility] Dec 28, 2024 10:00 AM [place]ORY [place]IC[place] [facility] Dec 28, 2024 11:00 AM AMBULATORY - REHAB MEDICIN [facility] Jan 01, 2025 01:30 PM AMBULATORY - REHAB MEDICIN E [facility] Jan 24, 2025 01:00 PM [place] [facility] Jan 25, 2025 10:00 AM [place]ORY [place]IC[place] [facility] Jan 25, 2025 11:00 AM AMBULATORY - REHAB MEDICIN E [facility] Feb 01, 2025 10:00 AM [place]ORY [place]IC[place] [facility] Feb 01, 2025 11:00 AM [place]ORY [place]IC[place] [facility] Feb 08, 2025 10:00 AM AMBULATORY - MEDICINE [facility] Active, Pending, and Scheduled Orders This section includes a listing of several types of active, pending, and scheduled orders, including clinic medications orders, diagnostic test orders, procedure orders and consult orders; where the start date of the order is 45 days before the date of the Encounter or 45 days after the date of theEncounter. The data comes from all [place] treatment facilities. Test Date/Time Test Type Test Details Facility Name Dec 11, 2024 11:04 AM Consult Order PT PHYSICA L THERAPY OUTPT ORTHO SURGERY Cons Systems Technologist's Choice [facility] Social History: Smoking Status (Most current) and Tobacco Use (All prior to encounter date) This section includes the most current, and the historical, smoking and tobacco- related health factors from the [place] facility where the Encounter took place. Current Smoking Status This section includes the most current smoking, or tobacco-related health factor, from the [place] facility where the Encounter took place. Date/Time Current Smoking Status Comment Facil ity Nov 19, 2023 08:00 AM VA-TOBACCO FORMER USER [facility] Tobacco Use History This section includes a history of the smoking, or tobacco-related health factors, that were collected on or before the date of the Encounter. The data comes from the [place] facility where the Encounter took place. Date/Time Smoking Status/Tobacco Use Comment F acility Nov 19, 2023 08:00 AM VA-TOBACCO QUIT 15 YRS OR MORE [facility] Jan 28, 2023 09:45 AM VA-TOBACCO FORMER USER [facility] Jan 28, 2023 09:45 AM VA-TOBACCO QUIT 15 YRS OR MORE [facility] Oct 30, 2021 03:00 PM VA-TOBACCO FORMER USER [facility] Oct 30, 2021 03:00 PM VA-TOBACCO QUIT 5 TO < 15 YRS [facility] Aug 17, 2019 11:38 AM VA-TOBACCO FORMER USER [facility] Aug 17, 2019 11:38 AM VA-TOBACCO QUIT 5 TO < 15 YRS [facility] Jan 06, 2018 02:39 PM FORMER TOBACCO USER 7Y OR GREATE R [facility] Jan 28, 2017 12:47 PM FORMER TOBACCO USER 7Y OR GREATE R [facility] Jan 21, 2016 03:04 PM FORMER TOBACCO USER 7Y OR GREATE R [facility] Apr 02, 2015 02:05 PM FORMER TOBACCO USER 7Y OR GREATE R [facility] March 01, 2014 09:10 AM FORMER TOBACCO USER 7Y OR GREATE R [facility] Sep 18, 2013 09:13 AM CDM COPD TOBACCO NON-USER [facility] May 28, 2013 11:05 AM LIFETIME NON-TOBACCO USER [facility] May 25, 2013 12:08 PM FORMER TOBACCO USER 7Y OR GREATE R [facility] Jun 18, 2009 09:48 AM FORMER TOBACCO USER 7Y OR GREATE R [facility] Aug 24, 2008 10:10 AM FORMER TOBACCO USE >1Y <7Y [facility] Advance Directives: All historical and current Section Date Range: From patient's date of to the date document was created. This section includes ALL of a patient's completed or amended [place] Advance and Rescinded Directives. The entries below indicate that a directive exists for the patient, but an actual copy is not included with this document. The data comes from all [place] facilities. Date Advance Directives Provider Source March 08, 2023 ADVANCE DIRECTIVE ODILIA CHRISTIANSON [facility] May 02, 2014 ADVANCE DIRECTIVE DISCUSSION QUEENIE ASENZ [facility] May 24, 2013 CLINICAL WARNING NRACISOGALINDO J [facility] Sep 21, 2011 ADVANCE DIRECTIVE JORDAN ZHANG [facility] Encounter Notes: All associated encounter notes This section contains the clinical notes associated to the Encounter. Date/Time Encounter Note(s) Provider Source Nov 15, 2024 02:39 PM SOCIAL WORK RISK A SSESSMENT SCREENING NOTE: LOCAL TITLE: SOCIAL WORK TRIAGE ASSESSMENT STANDARD TITLE: SOCIAL WORK RISK ASSESSMENT SCREENING NOTE DATE OF NOTE: NOV 15, 2024@14:39 ENTRY DATE: NOV 15, 2024@14:39:53 AUTHOR: ANDREA DUQUE EXP COSIGNER: URGENCY: STATUS: COMPLETED SOCIAL WORK TRIAGE ASSESSMENT Referral source: Patient Presenting issues: Need for in-home support services Brief summary: [place] presented to PCSW dept with questions about care while recovering from upcoming shoulder surgery. Social Work Interventions and Plan: Met with . [place] states he has shoulder surgery in December. He states he will have his shoulder immobilized for 6 weeks following. He lives alone. [place] states he has to don a knee brace daily and use oxygen and a bipap mask, and that he will be unable to meet these needs with use of only one arm. He asks if his home care hours can be increased- he currently has a [employer] 3x/week. Discussed [facility] could potentially assess for increase in home care hours, but it is unlikely a [employer] could be provided to assist with all of the needs mentioned above daily. Discussed typically veterans are evaluated in the hospital to ensure they can meet their needs to discharge home, and if not, they may require rehab placement. continued to express concerns about wanting any needed care arranged prior to surgery. Discussed news writer can alert orthopedic SW to his questions/concerns and they can better address a typical surgical admission and how his functional status and needs will be evaluated during hospitalization and potential options for after-care. Discussed with surgical SW and alerting to the above. Time spent with : 10 minutes Diagnosis: Other problems related to psychosocial circumstances /kyle/ ANDREA DUQUE JAVA PROGRAMMER Signed: 11/15/2024 14:47 Receipt Acknowledged By: 11/15/2024 15:33 /kyle/ MYAH HANEY BARREL LINER JAVA PROGRAMMER ANDREA DUQUE [facility]
--- OUTSIDE RECORDS SUMMARY | 2025-01-16 07:58 | XMS_ITS | Encounter Summary ---
Author Name [facility] Organization [facility] Address [address] [place] [address] Care Team Providers Care Easement Worker Name Role Phone ZENY MARTIN Primary Care [...] PART A Oct 18, 2013 PART A [id number] [phone] Mary ROSA PATIENT MEDICARE (WNR) MEDICARE (M) PART B Oct 18, 2013 PART B [id number] Mary ROSA EONARD PATIENT MEDICARE (WNR) MEDICARE (M) PART A Oct 18, 2013 PART A [id number] [phone] Mary ROSA PATIENT Selected Encounter This section includes the information on record at ME for the Encounter. Date/Time Encounter Type Encounter Description Reason Provider Source Jan 10, 2025 11:35 AM Inpatient Visit [facility]IENT CARE IN [facility] Encounter Template Text not used by ME Plan of Treatment: Future Appointments (+ 6 months) and Future Tests (+/- 45 days) The Plan of Treatment section includes future care activities for the patient from [facility] This section includes future appointments and future orders which are active, pending or scheduled. Future Appointments This section includes appointments that were scheduled to occur 6 months from the date of the Encounter, up to a maximum of 20 appointments. The data comes from all [facility]. Appointment Date/Time Appointment Type Appointme nt Facility Name Jan 24, 2025 01:00 PM AMBULATORY - SURGERY [facility] Jan 25, 2025 10:00 AM AMBULATORY - MEDICINE [facility] Jan 25, 2025 11:00 AM AMBULATORY - REHAB MEDICIN E [facility] Feb 01, 2025 10:00 AM AMBULATORY - MEDICINE [facility] Feb 01, 2025 11:00 AM AMBULATORY - MEDICINE [facility] Feb 08, 2025 10:00 AM AMBULATORY - MEDICINE [facility] February 22, 2025 10:00 AM AMBULATORY MEDICINE [facility] February 23, 2025 11:00 AM AMBULATORY - NONE [facility] February 23, 2025 11:30 AM AMBULATORY - SURGERY [facility] March 08, 2025 10:00 AM AMBULATORY - MEDICINE [facility] Apr 09, 2025 01:00 PM AMBULATORY - SURGERY [facility] Active, Pending, and Scheduled Orders This section includes a listing of several types of active, pending, and scheduled orders, including clinic medications orders, diagnostic test orders, procedure orders and consult orders; where the start date of the order is 45 days before the date of the Encounter or 45 days after the date of theEncounter. The data comes from all [facility]. Test Date/Time Test Type Test Details Facility Name Dec 11, 2024 11:04 AM Consult Order PT PHYSICA L THERAPY OUTPT ORTHO SURGERY [facility] [employer] [facility] Jan 10, 2025 12:00 AM Laboratory - Blood Bank Order TYPE & SCREEN - LAB BLOOD WC [facility] Jan 12, 2025 08:18 AM Consult Order [facility] [employer] [facility] Jan 22, 2025 12:00 AM Laboratory - Chemi stry Order HEMOGLOBIN A1C BLOOD SP ONCE [facility] Jan 22, 2025 12:00 AM Laboratory - Chemi stry Order BASIC METABOLIC PANEL+MG PLASMA SP [facility] February 23, 2025 11:00 AM Imaging - General Radiology Order SHOULDER RIGHT 2-3 VIEWS RIGHT [facility] Lab Results: +/- 30 days of the encounter This section includes the Chemistry and Hematology Lab Results on record with ME for the patient. Radiology Reports and Pathology Reports are provided separately, in subsequent sections. Lab Results This section contains the Chemistry/Hematology Results that were resulted 30 days before or 30 daysafter the date of the Encounter. Date/Time Source Result Type Result - Unit Interpretation Reference Range Comment Jan 11, 2025 12:21 PM [facility] FINGERSTICK GLUCOSE Specimen Type: BLOOD Comment: Save Result Nurse Notified Ordering Provider: ANDREA WOLF Report Released Date/Time: Jan 11, 2025 12:51 PM Reporting Lab: [facility] [phone] Performing Lab: [facility] [phone] FINGERSTICK GLUCOSE 246 mg/dL H 70-100 Jan 11, 2025 07:37 AM [facility] CBC Specimen Type: BLOOD No comment entered. Ordering Provider: ANDREA WOLF Report Released Date/Time: Jan 10, 2025 02:40 PM Reporting Lab: [facility] [phone] Performing Lab: [facility] [address] WBC 9.7 4.0-11.0 RBC 4.50 L 4.60-6.20 HGB 12.9 g/dL L 13.5-17.9 HCT 42.3 41.0-54.0 MCV 94.0 fL 80.0-100.0 MCH 28.7 pg 27.0-33.0 MCHC 30.5 g/dL L 32.0-37.5 PLT 174 150-400 MPV 11.5 fL 9.1-13.0 RDW 13.3 11.5-14.5 Jan 11, 2025 07:37 AM [facility] BASIC METABOLIC PANEL+MG Specimen Type: PLASMA No comment entered. Ordering Provider: ANDREA WOLF Report Released Date/Time: Jan 10, 2025 02:40 PM Reporting Lab: [facility] [phone] Performing Lab: [facility] [address] CREATININE 1.0 mg/dL 0.7-1.2 UREA NITROGEN 21 mg/dL 8-26 GLUCOSE 203 mg/dL H 70-100 SODIUM 136 mmol/L 136-145 POTASSIUM 4.1 mmol/L 3.5-5.1 CHLORIDE 102 mmol/L 98-107 CO2 23 mmol/L 22-29 CALCIUM 8.8 mg/dL 8.4-10.2 MAGNESIUM 2.0 mg/dL 1.6-2.6 ANION GAP 11 mmol/L 5-15 .CREAT EGFR(CKD-EPI) 80 >60 Jan 11, 2025 06:10 AM [facility] FINGERSTICK GLUCOSE Specimen Type: BLOOD Comment: Save Result Nurse Notified Ordering Provider: Lilli CHRISTENSEN Report Released Date/Time: Jan 11, 2025 07:41 AM Reporting Lab: [facility] [phone] Performing Lab: [facility] [address] FINGERSTICK GLUCOSE 220 mg/dL H 70-100 Jan 10, 2025 08:11 PM [facility] FINGERSTICK GLUCOSE Specimen Type: BLOOD Comment: Save Result Nurse Notified Ordering Provider: Lilli CHRISTENSEN Report Released Date/Time: Jan 10, 2025 08:36 PM Reporting Lab: [facility] [phone] Performing Lab: [facility] [address] FINGERSTICK GLUCOSE 239 mg/dL H 70-100 Jan 10, 2025 04:30 PM [facility] FINGERSTICK GLUCOSE Specimen Type: BLOOD Comment: Save Result Nurse Notified Ordering Provider: Lilli CHRISTENSEN Report Released Date/Time: Jan 10, 2025 05:34 PM Reporting Lab: [facility] [address] Performing Lab: [facility] [address] FINGERSTICK GLUCOSE 190 mg/dL H 70-100 Jan 10, 2025 02:40 PM [facility] FINGERSTICK GLUCOSE Specimen Type: BLOOD Comment: Save Result Nurse Notified Ordering Provider: BENIGNO KIM Report Released Date/Time: Jan 10, 2025 03:01 PM Reporting Lab: [facility] [phone] Performing Lab: [facility] [address] FINGERSTICK GLUCOSE 183 mg/dL H 70-100 Jan 10, 2025 08:35 AM [facility] ACT PART THROMBO TIME Specimen Type: PLASMA Comment: ~Draw on admission. Call IV team to draw on admission. Ordering Provider: BENIGNO KIM A Report Released Date/Time: Jan 10, 2025 08:01 AM Reporting Lab: [facility] [phone] Performing Lab: [facility] [address] APTT 31.4 s 25.1-36.5 Jan 10, 2025 08:35 AM [facility] PROTHROMBIN TIME/INR Specimen Type: PLASMA Comment: ~Draw on admission. Call IV team to draw on admission. Ordering Provider: BENIGNO KIM A Report Released Date/Time: Jan 10, 2025 08:01 AM Reporting Lab: [facility] [address] Performing Lab: [facility] [address] .INR 0.9 0.8-1.1 .PT 10.9 s 9.4-12.5 Jan 10, 2025 08:35 AM [facility] CBC Specimen Type: BLOOD No comment entered. Ordering Provider: BENIGNO KIM A Report Released Date/Time: Jan 10, 2025 08:01 AM Reporting Lab: [facility] [phone] Performing Lab: [facility] [address] WBC 6.6 4.0-11.0 RBC 5.00 4.60-6.20 HGB 14.5 g/dL 13.5-17.9 HCT 46.1 41.0-54.0 MCV 92.2 fL 80.0-100.0 MCH 29.0 pg 27.0-33.0 MCHC 31.5 g/dL L 32.0-37.5 PLT 172 150-400 MPV 10.9 fL 9.1-13.0 RDW 13.7 11.5-14.5 Jan 10, 2025 08:35 AM [facility] BASIC METABOLIC PANEL+MG Specimen Type: PLASMA No comment entered. Ordering Provider: BENIGNO KIM A Report Released Date/Time: Jan 10, 2025 08:01 AM Reporting Lab: [facility] [phone] Performing Lab: [facility] [address] CREATININE 0.9 mg/dL 0.7-1.2 UREA NITROGEN 19 mg/dL 8-26 GLUCOSE 151 mg/dL H 70-100 SODIUM 138 mmol/L 136-145 POTASSIUM 3.9 mmol/L 3.5-5.1 CHLORIDE 106 mmol/L 98-107 CO2 23 mmol/L 22-29 CALCIUM 9.3 mg/dL 8.4-10.2 MAGNESIUM 2.0 mg/dL 1.6-2.6 ANION GAP 9 mmol/L 5-15 .CREAT EGFR(CKD-EPI) >90 >60 Jan 10, 2025 08:35 AM [facility] FINGERSTICK GLUCOSE Specimen Type: BLOOD Comment: Save Result Ordering Provider: BENIGNO KIM Report Released Date/Time: Jan 10, 2025 10:31 AM Reporting Lab: [facility] [phone] Performing Lab: [facility] [address] FINGERSTICK GLUCOSE 155 mg/dL H 70-100 Dec 18, 2024 12:16 PM [facility] ALBUMIN Specimen Type: PLASMA No comment entered. Ordering Provider: BENIGNO KIM A Report Released Date/Time: Sep 27, 2024 10:57 AM Reporting Lab: [facility] [address] Performing Lab: [facility] [address] ALBUMIN 4.4 g/dL 3.5-5.0 Dec 18, 2024 12:16 PM [facility] HEMOGLOBIN A1C Specimen Type: BLOOD Comment: [...] Sep 27, 2024 10:57 AM Reporting Lab: [facility] [address] Performing Lab: [facility] [address] HEMOGLOBIN A1C 7.1 H 4.0-6.0 Dec 18, 2024 12:16 PM [facility] PROTHROMBIN TIME/INR Specimen Type: PLASMA No comment entered. Ordering Provider: BENIGNO KIM A Report Released Date/Time: Sep 27, 2024 10:57 AM Reporting Lab: [facility] [address] Performing Lab: [facility] [address] .INR 0.9 0.8-1.1 .PT 10.3 s 9.4-12.5 Dec 18, 2024 12:16 PM [facility] BASIC METABOLIC PANEL+MG Specimen Type: PLASMA No comment entered. Ordering Provider: BENIGNO KIM A Report Released Date/Time: Sep 27, 2024 10:57 AM Reporting Lab: [facility] [address] Performing Lab: [facility] [address] CREATININE 1.0 mg/dL 0.7-1.2 UREA NITROGEN 19 mg/dL 8-26 GLUCOSE 118 mg/dL H 70-100 SODIUM 139 mmol/L 136-145 POTASSIUM 4.1 mmol/L 3.5-5.1 CHLORIDE 104 mmol/L 98-107 CO2 25 mmol/L 22-29 CALCIUM 9.6 mg/dL 8.4-10.2 MAGNESIUM 2.1 mg/dL 1.6-2.6 ANION GAP 10 mmol/L 5-15 .CREAT EGFR(CKD-EPI) 80 >60 Dec 18, 2024 12:16 PM [facility] CBC & DIFF Specimen Type: BLOOD Comment: Automated Differential Performed Ordering Provider: BENIGNO KIM A Report Released Date/Time: Sep 27, 2024 10:57 AM Reporting Lab: [facility] [address] Performing Lab: [facility] [address] WBC 9.5 4.0-11.0 RBC 5.05 4.60-6.20 HGB [...] Pain Height Weight Body Mass Index Source Jan 10, 2025 08:57 PM 6 [facility] Jan 10, 2025 07:57 PM 7 [facility] Jan 10, 2025 05:58 PM 187.8 27 [facility] Jan 10, 2025 09:21 AM 186 27 [facility] Jan 10, 2025 09:20 AM 98 61 128/73 16 98 7 [facility] Social History: Smoking Status (Most current) and Tobacco Use (All prior to encounter date) This section includes the most current, and the historical, smoking and tobacco- related health factors from the [place] facility where the Encounter took place. Current Smoking Status This section includes the most current smoking, or tobacco-related health factor, from the [place] facility where the Encounter took place. Date/Time Current Smoking Status Comment Serina reece Nov 19, 2023 08:00 AM VA-TOBACCO FORMER USER [facility] Tobacco Use History This section includes a history of the smoking, or tobacco-related health factors, that were collected on or before the date of the Encounter. The data comes from the [place] facility where the Encounter took place. Date/Time Smoking Status/Tobacco Use Comment [facility] Nov 19, 2023 08:00 AM VA-TOBACCO QUIT 15 YRS OR MORE [facility] Jan 28, 2023 09:45 AM VA-TOBACCO FORMER USER [facility] Jan 28, 2023 09:45 AM VA-TOBACCO QUIT 15 YRS OR MORE [facility] Oct 30, 2021 03:00 PM VA-TOBACCO FORMER USER [facility] Oct 30, 2021 03:00 PM VA-TOBACCO QUIT 5 TO < 15 YRS [facility] Aug 17, 2019 11:38 AM VA-TOBACCO FORMER USER [facility] Aug 17, 2019 11:38 AM VA-TOBACCO QUIT 5 TO < 15 YRS [facility] Jan 06, 2018 02:39 PM FORMER TOBACCO USER 7Y OR GREATE R [facility] Jan 28, 2017 12:47 PM FORMER TOBACCO USER 7Y OR GREATE R [facility] Jan 21, 2016 03:04 PM FORMER TOBACCO USER 7Y OR GREATE R [facility] Apr 02, 2015 02:05 PM FORMER TOBACCO USER 7Y OR GREATE R [facility] March 01, 2014 09:10 AM FORMER TOBACCO USER 7Y OR GREATE R [facility] Sep 18, 2013 09:13 AM CDM COPD TOBACCO NON-USER [facility] May 28, 2013 11:05 AM LIFETIME NON-TOBACCO USER [facility] May 25, 2013 12:08 PM FORMER TOBACCO USER 7Y OR GREATE R [facility] Jun 18, 2009 09:48 AM FORMER TOBACCO USER 7Y OR GREATE R [facility] Aug 24, 2008 10:10 AM FORMER TOBACCO USE >1Y <7Y [facility] Advance Directives: All historical and current Section Date Range: From patient's date of to the date document was created. This section includes ALL of a patient's completed or amended [place] Advance and Rescinded Directives. The entries below indicate that a directive exists for the patient, but an actual copy is not included with this document. The data comes from all [facility]. Date Advance Directives Provider Source March 08, 2023 ADVANCE DIRECTIVE ODILIA CHRISTIANSON [facility] May 02, 2014 ADVANCE DIRECTIVE DISCUSSION QUEENIE SAENZ [facility] May 24, 2013 CLINICAL WARNING GALINDO STUART [facility] Sep 21, 2011 ADVANCE DIRECTIVE JORDAN ZHANG [facility] Radiology Reports: +/- 30 days of the [...] the Encounter. The data comes from all [place] treatment facilities. Date/Time Radiology Report Provider Source Jan 10, 2025 07:58 AM SHOULDER RIGHT 2-3 VIEWS: KEENA ROSA [id number] M Exm Date: JAN 10, 2025@07:58 Req Phys: SHELLI KIM Loc: OR-PACU/01-10-2025@15:42 Img Loc: MAIN X-RAY Service: [place] [address] (Case [id number] COMPLETE) SHOULDER RIGHT 2-3 VIEWS (RAD Detailed) CPT:69077 Proc Modifiers : PORTABLE EXAM, OPERATING ROOM EXAM Reason for Study: right reverse TSA Clinical History: OR 6 shoulder rotator cuff arthropathy My pager number on record is: . I confirm that the pager number/cell phone number above is correct for reporting critical results. 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 Components appear well seated. Report Sign Date/Time: 01/10/2025 3:39 PM Primary Interpreting Staff: MIRANDA BROOKE MD, RADIOLOGIST (Business Office Specialist) /RTS MIRANDA BROOKE [facility]
--- OUTSIDE RECORDS SUMMARY | 2025-01-16 07:59 | XMS_ITS | Encounter Summary ---
Author Name [facility] Organization [facility] Address [address] [place] [address] Care Team Providers Care Hand Icer Name Role Phone ZENY MARTIN Primary Care [...] PART A Oct 18, 2013 PART A [id number] [phone] Mary ROSA PATIENT MEDICARE (WNR) MEDICARE (M) PART B Oct 18, 2013 PART B [id number] Mary ROSA PATIENT MEDICARE (WNR) MEDICARE (M) PART A Oct 18, 2013 PART A [id number] Mary ROSA PATIENT Selected Encounter This section includes the information on record at [place] for the Encounter. Date/Time Encounter Type Encounter Description Reason Pro vider Source Jan 10, 2025 10:12 AM Inpatient Visit ADMIN PAT ACTIVTIES (MASNONCT) SYSTEM,[facility] Encounter Template Text not used by [place] Plan of Treatment: Future Appointments (+ 6 months) and Future Tests (+/- 45 days) The Plan of Treatment section includes future care activities for the patient [facility] This section includes future appointments and future orders which are active, pending or scheduled. Future Appointments This section includes appointments that were scheduled to occur 6 months from the date of the Encounter, up to a maximum of 20 appointments. The data comes from all [facility]. Appointment Date/Time Appointment Type Appointme nt Facility Name Jan 24, 2025 01:00 PM AMBULATORY - SURGERY [facility] Jan 25, 2025 10:00 AM AMBULATORY - MEDICINE [facility] Jan 25, 2025 11:00 AM AMBULATORY - REHAB MEDICIN E [facility] Feb 01, 2025 10:00 AM AMBULATORY - MEDICINE [facility] Feb 01, 2025 11:00 AM AMBULATORY - MEDICINE [facility] Feb 08, 2025 10:00 AM AMBULATORY - MEDICINE [facility] February 22, 2025 10:00 AM AMBULATORY - MEDICINE [facility] February 23, 2025 11:00 AM AMBULATORY - NONE [facility] February 23, 2025 11:30 AM AMBULATORY - SURGERY [facility] March 08, 2025 10:00 AM AMBULATORY - MEDICINE [facility] Apr 09, 2025 01:00 PM AMBULATORY - SURGERY [facility] Active, Pending, and Scheduled Orders This section includes a listing of several types of active, pending, and scheduled orders, including clinic medications orders, diagnostic test orders, procedure orders and consult orders; where the start date of the order is 45 days before the date of the Encounter or 45 days after the date of theEncounter. The data comes from all [facility]. Test Date/Time Test Type Test Details Facility Name Dec 11, 2024 11:04 AM Consult Order PT PHYSICA L THERAPY OUTPT ORTHO SURGERY [facility] Jan 10, 2025 12:00 AM Laboratory - Blood Bank Order TYPE & SCREEN - LAB BLOOD WC [facility] Jan 12, 2025 08:18 AM Consult Order [facility] Cons [facility] Jan 22, 2025 12:00 AM Laboratory - Chemi stry Order HEMOGLOBIN A1C BLOOD SP ONCE [facility] Jan 22, 2025 12:00 AM Laboratory - Chemi stry Order BASIC METABOLIC PANEL+MG PLASMA SP [facility] February 23, 2025 11:00 AM Imaging - General Radiology Order SHOULDER RIGHT 2-3 VIEWS RIGHT [facility] Lab Results: +/- 30 days of the encounter This section includes the Chemistry and Hematology Lab Results on record with [place] for the patient. Radiology Reports and Pathology Reports are provided separately, in subsequent sections. Lab Results This section contains the Chemistry/Hematology Results that were resulted 30 days before or 30 daysafter the date of the Encounter. Date/Time Source Result Type Result - Unit Interpretation Reference Range Comment Jan 11, 2025 12:21 PM [facility] FINGERSTICK GLUCOSE Specimen Type: BLOOD Comment: Save Result Nurse Notified Ordering Provider: ANDREA WOLF Report Released Date/Time: Jan 11, 2025 12:51 PM Reporting Lab: [facility] [phone] Performing Lab: [facility] [phone] FINGERSTICK GLUCOSE 246 mg/dL H 70-100 Jan 11, 2025 07:37 AM [facility] CBC Specimen Type: BLOOD No comment entered. Ordering Provider: ANDREA WOLF Report Released Date/Time: Jan 10, 2025 02:40 PM Reporting Lab: [facility] [phone] Performing Lab: [facility] [phone] WBC 9.7 4.0-11.0 RBC 4.50 L 4.60-6.20 HGB 12.9 g/dL L 13.5-17.9 HCT 42.3 41.0-54.0 MCV 94.0 fL 80.0-100.0 MCH 28.7 pg 27.0-33.0 MCHC 30.5 g/dL L 32.0-37.5 PLT 174 150-400 MPV 11.5 fL 9.1-13.0 RDW 13.3 11.5-14.5 Jan 11, 2025 07:37 AM [facility] BASIC METABOLIC PANEL+MG Specimen Type: PLASMA No comment entered. Ordering Provider: ANDREA WOLF Report Released Date/Time: Jan 10, 2025 02:40 PM Reporting Lab: [facility] [phone] Performing Lab: [facility] [phone] CREATININE 1.0 mg/dL 0.7-1.2 UREA NITROGEN 21 mg/dL 8-26 GLUCOSE 203 mg/dL H 70-100 SODIUM 136 mmol/L 136-145 POTASSIUM 4.1 mmol/L 3.5-5.1 CHLORIDE 102 mmol/L 98-107 CO2 23 mmol/L 22-29 CALCIUM 8.8 mg/dL 8.4-10.2 MAGNESIUM 2.0 mg/dL 1.6-2.6 ANION GAP 11 mmol/L 5-15 .CREAT EGFR(CKD-EPI) 80 >60 Jan 11, 2025 06:10 AM [facility] FINGERSTICK GLUCOSE Specimen Type: BLOOD Comment: Save Result Nurse Notified Ordering Provider: Lilli CHRISTENSEN Report Released Date/Time: Jan 11, 2025 07:41 AM Reporting Lab: [facility] [phone] Performing Lab: [facility] [phone] FINGERSTICK GLUCOSE 220 mg/dL H 70-100 Jan 10, 2025 08:11 PM [facility] FINGERSTICK GLUCOSE Specimen Type: BLOOD Comment: Save Result Nurse Notified Ordering Provider: Lilli CHRISTENSEN Report Released Date/Time: Jan 10, 2025 08:36 PM Reporting Lab: [facility] [phone] Performing Lab: [facility] [phone] FINGERSTICK GLUCOSE 239 mg/dL H 70-100 Jan 10, 2025 04:30 PM [facility] FINGERSTICK GLUCOSE Specimen Type: BLOOD Comment: Save Result Nurse Notified Ordering Provider: Lilli CHRISTENSEN Report Released Date/Time: Jan 10, 2025 05:34 PM Reporting Lab: [facility] [phone] Performing Lab: [facility] [phone] FINGERSTICK GLUCOSE 190 mg/dL H 70-100 Jan 10, 2025 02:40 PM [facility] FINGERSTICK GLUCOSE Specimen Type: BLOOD Comment: Save Result Nurse Notified Ordering Provider: BENIGNO KIM Report Released Date/Time: Jan 10, 2025 03:01 PM Reporting Lab: [facility] [phone] Performing Lab: [facility] [phone] FINGERSTICK GLUCOSE 183 mg/dL H 70-100 Jan 10, 2025 08:35 AM [facility] ACT PART THROMBO TIME Specimen Type: PLASMA Comment: ~Draw on admission. Call IV team to draw on admission. Ordering Provider: BENIGNO KIM A Report Released Date/Time: Jan 10, 2025 08:01 AM Reporting Lab: [facility] [phone] Performing Lab: [facility] [phone] APTT 31.4 s 25.1-36.5 Jan 10, 2025 08:35 AM [facility] PROTHROMBIN TIME/INR Specimen Type: PLASMA Comment: ~Draw on admission. Call IV team to draw on admission. Ordering Provider: BENIGNO KIM A Report Released Date/Time: Jan 10, 2025 08:01 AM Reporting Lab: [facility] [phone] Performing Lab: [facility] [phone] .INR 0.9 0.8-1.1 .PT 10.9 s 9.4-12.5 Jan 10, 2025 08:35 AM [facility] CBC Specimen Type: BLOOD No comment entered. Ordering Provider: BENIGNO KIM A Report Released Date/Time: Jan 10, 2025 08:01 AM Reporting Lab: [facility] [phone] Performing Lab: [facility] [phone] WBC 6.6 4.0-11.0 RBC 5.00 4.60-6.20 HGB 14.5 g/dL 13.5-17.9 HCT 46.1 41.0-54.0 MCV 92.2 fL 80.0-100.0 MCH 29.0 pg 27.0-33.0 MCHC 31.5 g/dL L 32.0-37.5 PLT 172 150-400 MPV 10.9 fL 9.1-13.0 RDW 13.7 11.5-14.5 Jan 10, 2025 08:35 AM [facility] BASIC METABOLIC PANEL+MG Specimen Type: PLASMA No comment entered. Ordering Provider: BENIGNO KIM A Report Released Date/Time: Jan 10, 2025 08:01 AM Reporting Lab: [facility] [phone] Performing Lab: [facility] [phone] CREATININE 0.9 mg/dL 0.7-1.2 UREA NITROGEN 19 mg/dL 8-26 GLUCOSE 151 mg/dL H 70-100 SODIUM 138 mmol/L 136-145 POTASSIUM 3.9 mmol/L 3.5-5.1 CHLORIDE 106 mmol/L 98-107 CO2 23 mmol/L 22-29 CALCIUM 9.3 mg/dL 8.4-10.2 MAGNESIUM 2.0 mg/dL 1.6-2.6 ANION GAP 9 mmol/L 5-15 .CREAT EGFR(CKD-EPI) >90 >60 Jan 10, 2025 08:35 AM [facility] FINGERSTICK GLUCOSE Specimen Type: BLOOD Comment: Save Result Ordering Provider: BENIGNO KIM Report Released Date/Time: Jan 10, 2025 10:31 AM Reporting Lab: [facility] [phone] Performing Lab: [facility] [phone] FINGERSTICK GLUCOSE 155 mg/dL H 70-100 Dec 18, 2024 12:16 PM [facility] ALBUMIN Specimen Type: PLASMA No comment entered. Ordering Provider: BENIGNO KIM Report Released Date/Time: Sep 27, 2024 10:57 AM Reporting Lab: [facility] [phone] Performing Lab: [facility] [phone] ALBUMIN 4.4 g/dL 3.5-5.0 Dec 18, 2024 12:16 PM [facility] HEMOGLOBIN A1C Specimen Type: BLOOD Comment: Values [...] 2024 10:57 AM Reporting Lab: [facility] [phone] Performing Lab: [facility] [phone] HEMOGLOBIN A1C 7.1 H 4.0-6.0 Dec 18, 2024 12:16 PM [facility] PROTHROMBIN TIME/INR Specimen Type: PLASMA No comment entered. Ordering Provider: BENIGNO KIM A Report Released Date/Time: Sep 27, 2024 10:57 AM Reporting Lab: [facility] [phone] Performing Lab: [facility] [phone] .INR 0.9 0.8-1.1 .PT 10.3 s 9.4-12.5 Dec 18, 2024 12:16 PM [facility] BASIC METABOLIC PANEL+MG Specimen Type: PLASMA No comment entered. Ordering Provider: BENIGNO KIM A Report Released Date/Time: Sep 27, 2024 10:57 AM Reporting Lab: [facility] [phone] Performing Lab: [facility] [phone] CREATININE 1.0 mg/dL 0.7-1.2 UREA NITROGEN 19 mg/dL 8-26 GLUCOSE 118 mg/dL H 70-100 SODIUM 139 mmol/L 136-145 POTASSIUM 4.1 mmol/L 3.5-5.1 CHLORIDE 104 mmol/L 98-107 CO2 25 mmol/L 22-29 CALCIUM 9.6 mg/dL 8.4-10.2 MAGNESIUM 2.1 mg/dL 1.6-2.6 ANION GAP 10 mmol/L 5-15 .CREAT EGFR(CKD-EPI) 80 >60 Dec 18, 2024 12:16 PM [facility] CBC & DIFF Specimen Type: BLOOD Comment: Automated Differential Performed Ordering Provider: BENIGNO KIM A Report Released Date/Time: Sep 27, 2024 10:57 AM Reporting Lab: [facility] [phone] Performing Lab: [facility] [phone] WBC 9.5 4.0-11.0 RBC 5.05 4.60-6.20 HGB [...] Source Jan 10, 2025 08:57 PM 6 [facility] Jan 10, 2025 07:57 PM 7 [facility] Jan 10, 2025 05:58 PM 187.8 27 [facility] Jan 10, 2025 09:21 AM 186 27 [facility] Jan 10, 2025 09:20 AM 98 61 128/73 16 98 7 [facility] Social History: Smoking Status (Most current) and Tobacco Use (All prior to encounter date) This section includes the most current, and the historical, smoking and tobacco- related health factors from the [place] facility where the Encounter took place. Current Smoking Status This section includes the most current smoking, or tobacco-related health factor, from the [place] facility where the Encounter took place. Date/Time Current Smoking Status Comment Serina reeec Nov 19, 2023 08:00 AM VA-TOBACCO FORMER USER [facility] Tobacco Use History This section includes a history of the smoking, or tobacco-related health factors, that were collected on or before the date of the Encounter. The data comes from the [place] facility where the Encounter took place. Date/Time Smoking Status/Tobacco Use Comment F mahamed Nov 19, 2023 08:00 AM VA-TOBACCO QUIT 15 YRS OR MORE [facility] Jan 28, 2023 09:45 AM VA-TOBACCO FORMER USER [facility] Jan 28, 2023 09:45 AM VA-TOBACCO QUIT 15 YRS OR MORE [facility] Oct 30, 2021 03:00 PM VA-TOBACCO FORMER USER [facility] Oct 30, 2021 03:00 PM VA-TOBACCO QUIT 5 TO < 15 YRS [facility] Aug 17, 2019 11:38 AM VA-TOBACCO FORMER USER [facility] Aug 17, 2019 11:38 AM VA-TOBACCO QUIT 5 TO < 15 YRS [facility] Jan 06, 2018 02:39 PM FORMER TOBACCO USER 7Y OR GREATE R [facility] Jan 28, 2017 12:47 PM FORMER TOBACCO USER 7Y OR GREATE R [facility] Jan 21, 2016 03:04 PM FORMER TOBACCO USER 7Y OR GREATE R [facility] Apr 02, 2015 02:05 PM FORMER TOBACCO USER 7Y OR GREATE R [facility] March 01, 2014 09:10 AM FORMER TOBACCO USER 7Y OR GREATE R [facility] Sep 18, 2013 09:13 AM CDM COPD TOBACCO NON-USER [facility] May 28, 2013 11:05 AM LIFETIME NON-TOBACCO USER [facility] May 25, 2013 12:08 PM FORMER TOBACCO USER 7Y OR GREATE R [facility] Jun 18, 2009 09:48 AM FORMER TOBACCO USER 7Y OR GREATE R [facility] Aug 24, 2008 10:10 AM FORMER TOBACCO USE >1Y <7Y [facility] Advance Directives: All historical and current Section Date Range: From patient's date of to the date document was created. This section includes ALL of a patient's completed or amended [place] Advance and Rescinded Directives. The entries below indicate that a directive exists for the patient, but an actual copy is not included with this document. The data comes from all [place] facilities. Date Advance Directives Provider Source March 08, 2023 ADVANCE DIRECTIVE ODILIA CHRISTIANSON [facility] May 02, 2014 ADVANCE DIRECTIVE DISCUSSION QUEENIE SAENZ [facility] May 24, 2013 CLINICAL WARNING GALINDO STUART [facility] Sep 21, 2011 ADVANCE DIRECTIVE JORDAN ZHANG [facility] Radiology Reports: +/- 30 days of the [...] the Encounter. The data comes from all [place] treatment facilities. Date/Time Radiology Report Provider Source Jan 10, 2025 07:58 AM SHOULDER RIGHT 2-3 VIEWS: KEENA ROSA [id number] -[id number] M Exm Date: JAN 10, 2025@07:58 Req Phys: ARMINDA KIMHECTOR Macias Loc: OR-PACU/01-10-2025@15:42 Img Loc: MAIN X-RAY Service: [place] [address] (Case [id number] COMPLETE) SHOULDER RIGHT 2-3 VIEWS (RAD Detailed) CPT:03848 Proc Modifiers : PORTABLE EXAM, OPERATING ROOM EXAM Reason for Study: right reverse TSA Clinical History: OR 6 shoulder rotator cuff arthropathy My pager number on record is: . I confirm that the pager number/cell phone number above is correct for reporting critical results. My correct contact # for critial results is:Valerio KIM [phone] Trainees only: Enter your staff provider's info here: LAST CREATININE 1.0 (12/18/24) Report Status: Verified Date Reported: JAN 10, 2025 Date Verified: JAN 10, 2025 Drive Away Driver E-Sig:/ES/MIRANDA BROOKE MD Report: EXAMINATION: SHOULDER RIGHT 2-3 VIEWS 01/10/2025 7:58 AM INDICATION: right reverse TSA Impression: Right reverse TSA. Components appear well seated. Report Sign Date/Time: 01/10/2025 3:39 PM Primary Interpreting Staff: MIRANDA BROOKE MD, RADIOLOGIST (Drive Away Driver) /RTS MIRANDA BROOKE [facility] Encounter Notes: All associated encounter notes This section contains the clinical notes associated to the Encounter. Date/Time Encounter Note(s) Provider Source Jan 10, 2025 10:12 AM CRITICAL CARE UNIT NOTE: LOCAL TITLE: [facility] PACU FLOWSHEET STANDARD TITLE: CRITICAL CARE UNIT NOTE DATE OF NOTE: JAN 10, 2025@10:12 ENTRY DATE: JAN 10, 2025@16:10:41 AUTHOR: HERB,MARIA VICTORIA EXP COSIGNER: URGENCY: STATUS: COMPLETED This is a place enrique only. Please see [facility]IST[facility] Imaging to view document. /es/ [facility] ICU DOCUMENT IMPORT Signed: 01/10/2025 16:10 SYSTEM,CIS-NETTE [facility]
--- OUTSIDE RECORDS SUMMARY | 2025-01-16 07:59 | XMS_ITS ---
[place] DAILY HOSPITALIZATION DATA [facility] HCS Encounter Summary Created on: January 16, 2025 KEENA ROSA : 1955 Sex: Male Author Name [facility] [place] [facility] Address [address] [place] [address] Care Team Providers Care Black Belt Name Role Phone ZENY MARTIN Primary Care [...] PART A Oct 18, 2013 PART A [id number] [phone] Mary ROSA PATIENT MEDICARE (WNR) MEDICARE (M) PART B Oct 18, 2013 PART B [id number] [phone] Mary ROSA EORODNEY PATIENT MEDICARE (WNR) MEDICARE (M) PART A Oct 18, 2013 PART A [id number] Mary ROSA PATIENT Selected Encounter This section includes the information on record at [place] for the Encounter. Date/Time Encounter Type Encounter Description Reason Pro vider Source Jan 11, 2025 11:59 AM Inpatient Visit DAILY HOSPITALIZATION DATA [facility] Encounter Template Text not used by [place] Plan of Treatment: Future Appointments (+ 6 months) and Future Tests (+/- 45 days) The Plan of Treatment section includes future care activities for the patient from all [place] [facility] This section includes future appointments and future orders which are active, pending or scheduled. Future Appointments This section includes appointments that were scheduled to occur 6 months from the date of the Encounter, up to a maximum of 20 appointments. The data comes from all [facility]. Appointment Date/Time Appointment Type Appointme nt Facility Name Jan 24, 2025 01:00 PM AMBULATORY - SURGERY [facility] Jan 25, 2025 10:00 AM AMBULATORY - MEDICINE [facility] Jan 25, 2025 11:00 AM AMBULATORY - REHAB MEDICIN E [facility] Feb 01, 2025 10:00 AM AMBULATORY - MEDICINE [facility] Feb 01, 2025 11:00 AM AMBULATORY - MEDICINE [facility] Feb 08, 2025 10:00 AM AMBULATORY - MEDICINE [facility] February 22, 2025 10:00 AM AMBULATORY - MEDICINE [facility] February 23, 2025 11:00 AM AMBULATORY - NONE [facility] February 23, 2025 11:30 AM AMBULATORY - SURGERY [facility] March 08, 2025 10:00 AM AMBULATORY - MEDICINE [facility] Apr 09, 2025 01:00 PM AMBULATORY SURGERY [facility] Active, Pending, and Scheduled Orders This section includes a listing of several types of active, pending, and scheduled orders, including clinic medications orders, diagnostic test orders, procedure orders and consult orders; where the start date of the order is 45 days before the date of the Encounter or 45 days after the date of theEncounter. The data comes from all [facility]. Test Date/Time Test Type Test Details Facility Name Dec 11, 2024 11:04 AM Consult Order PT PHYSICA L THERAPY OUTPT ORTHO SURGERY [employer] [facility] Jan 10, 2025 12:00 AM Laboratory - Blood Bank Order TYPE & SCREEN - LAB BLOOD [facility] Jan 12, 2025 08:18 AM Consult Order [facility] [employer] [facility] Jan 22, 2025 12:00 AM Laboratory - Chemi stry Order HEMOGLOBIN A1C BLOOD SP ONCE [facility] Jan 22, 2025 12:00 AM Laboratory - Chemi stry Order BASIC METABOLIC PANEL+MG PLASMA SP [facility] February 23, 2025 11:00 AM Imaging - General Radiology Order SHOULDER RIGHT 2-3 VIEWS RIGHT [facility] Lab Results: +/- 30 days of the encounter This section includes the Chemistry and Hematology Lab Results on record with [place] for the patient. Radiology Reports and Pathology Reports are provided separately, in subsequent sections. Lab Results This section contains the Chemistry/Hematology Results that were resulted 30 days before or 30 daysafter the date of the Encounter. Date/Time Source Result Type Result - Unit Interpretation Reference Range Comment Jan 11, 2025 12:21 PM [facility] FINGERSTICK GLUCOSE Specimen Type: BLOOD Comment: Save Result Nurse Notified Ordering Provider: ANDREA WOLF Report Released Date/Time: Jan 11, 2025 12:51 PM Reporting Lab: [facility] [phone] Performing Lab: [facility] [address] FINGERSTICK GLUCOSE 246 mg/dL H 70-100 Jan 11, 2025 07:37 AM [facility] CBC Specimen Type: BLOOD No comment entered. Ordering Provider: ANDREA WOLF Report Released Date/Time: Jan 10, 2025 02:40 PM Reporting Lab: [facility] [address] Performing Lab: [facility] [address] WBC 9.7 4.0-11.0 RBC 4.50 L 4.60-6.20 HGB 12.9 g/dL L 13.5-17.9 HCT 42.3 41.0-54.0 MCV 94.0 fL 80.0-100.0 MCH 28.7 pg 27.0-33.0 MCHC 30.5 g/dL L 32.0-37.5 PLT 174 150-400 MPV 11.5 fL 9.1-13.0 RDW 13.3 11.5-14.5 Jan 11, 2025 07:37 AM [facility] BASIC METABOLIC PANEL+MG Specimen Type: PLASMA No comment entered. Ordering Provider: ANDREA WOLF Report Released Date/Time: Jan 10, 2025 02:40 PM Reporting Lab: [facility] [address] Performing Lab: [facility] [address] CREATININE 1.0 mg/dL 0.7-1.2 UREA NITROGEN 21 mg/dL 8-26 GLUCOSE 203 mg/dL H 70-100 SODIUM 136 mmol/L 136-145 POTASSIUM 4.1 mmol/L 3.5-5.1 CHLORIDE 102 mmol/L 98-107 CO2 23 mmol/L 22-29 CALCIUM 8.8 mg/dL 8.4-10.2 MAGNESIUM 2.0 mg/dL 1.6-2.6 ANION GAP 11 mmol/L 5-15 .CREAT EGFR(CKD-EPI) 80 >60 Jan 11, 2025 06:10 AM [facility] FINGERSTICK GLUCOSE Specimen Type: BLOOD Comment: Save Result Nurse Notified Ordering Provider: Lilli CHRISTENSEN Report Released Date/Time: Jan 11, 2025 07:41 AM Reporting Lab: [facility] [phone] Performing Lab: [facility] [address] FINGERSTICK GLUCOSE 220 mg/dL H 70-100 Jan 10, 2025 08:11 PM [facility] FINGERSTICK GLUCOSE Specimen Type: BLOOD Comment: Save Result Nurse Notified Ordering Provider: Lilli CHRISTENSEN Report Released Date/Time: Jan 10, 2025 08:36 PM Reporting Lab: [facility] [address] Performing Lab: [facility] [address] FINGERSTICK GLUCOSE 239 mg/dL H 70-100 Jan 10, 2025 04:30 PM [facility] FINGERSTICK GLUCOSE Specimen Type: BLOOD Comment: Save Result Nurse Notified Ordering Provider: Lilli CHRISTENSEN Report Released Date/Time: Jan 10, 2025 05:34 PM Reporting Lab: [facility] [phone] Performing Lab: [facility] [address] FINGERSTICK GLUCOSE 190 mg/dL H 70-100 Jan 10, 2025 02:40 PM [facility] FINGERSTICK GLUCOSE Specimen Type: BLOOD Comment: Save Result Nurse Notified Ordering Provider: BENIGNO KIM Report Released Date/Time: Jan 10, 2025 03:01 PM Reporting Lab: [facility] [address] Performing Lab: [facility] [address] FINGERSTICK GLUCOSE 183 mg/dL H 70-100 Jan 10, 2025 08:35 AM [facility] ACT PART THROMBO TIME Specimen Type: PLASMA Comment: ~Draw on admission. Call IV team to draw on admission. Ordering Provider: BENIGNO KIM Report Released Date/Time: Jan 10, 2025 08:01 AM Reporting Lab: [facility] [address] Performing Lab: [facility] [address] APTT 31.4 s 25.1-36.5 Jan 10, 2025 08:35 AM [facility] PROTHROMBIN TIME/INR Specimen Type: PLASMA Comment: ~Draw on admission. Call IV team to draw on admission. Ordering Provider: BENIGNO KIM Report Released Date/Time: Jan 10, 2025 08:01 AM Reporting Lab: [facility] [address] Performing Lab: [facility] [address] .INR 0.9 0.8-1.1 .PT 10.9 s 9.4-12.5 Jan 10, 2025 08:35 AM [facility] CBC Specimen Type: BLOOD No comment entered. Ordering Provider: BENIGNO KIM A Report Released Date/Time: Jan 10, 2025 08:01 AM Reporting Lab: [facility] [address] Performing Lab: [facility] [address] WBC 6.6 4.0-11.0 RBC 5.00 4.60-6.20 HGB 14.5 g/dL 13.5-17.9 HCT 46.1 41.0-54.0 MCV 92.2 fL 80.0-100.0 MCH 29.0 pg 27.0-33.0 MCHC 31.5 g/dL L 32.0-37.5 PLT 172 150-400 MPV 10.9 fL 9.1-13.0 RDW 13.7 11.5-14.5 Jan 10, 2025 08:35 AM [facility] BASIC METABOLIC PANEL+MG Specimen Type: PLASMA No comment entered. Ordering Provider: BENIGNO KIM A Report Released Date/Time: Jan 10, 2025 08:01 AM Reporting Lab: [facility] [address] Performing Lab: [facility] [address] CREATININE 0.9 mg/dL 0.7-1.2 UREA NITROGEN 19 mg/dL 8-26 GLUCOSE 151 mg/dL H 70-100 SODIUM 138 mmol/L 136-145 POTASSIUM 3.9 mmol/L 3.5-5.1 CHLORIDE 106 mmol/L 98-107 CO2 23 mmol/L 22-29 CALCIUM 9.3 mg/dL 8.4-10.2 MAGNESIUM 2.0 mg/dL 1.6-2.6 ANION GAP 9 mmol/L 5-15 .CREAT EGFR(CKD-EPI) >90 >60 Jan 10, 2025 08:35 AM [facility] FINGERSTICK GLUCOSE Specimen Type: BLOOD Comment: Save Result Ordering Provider: BENIGNO KIM Report Released Date/Time: Jan 10, 2025 10:31 AM Reporting Lab: [facility] [address] Performing Lab: [facility] [address] FINGERSTICK GLUCOSE 155 mg/dL H 70-100 Dec 18, 2024 12:16 PM [facility] ALBUMIN Specimen Type: PLASMA No comment entered. Ordering Provider: BENIGNO KIM Report Released Date/Time: Sep 27, 2024 10:57 AM Reporting Lab: [facility] [address] Performing Lab: [facility] [address] ALBUMIN 4.4 g/dL 3.5-5.0 Dec 18, 2024 12:16 PM [facility] HEMOGLOBIN A1C Specimen Type: BLOOD Comment: [...] Sep 27, 2024 10:57 AM Reporting Lab: [facility] [address] Performing Lab: [facility] [address] HEMOGLOBIN A1C 7.1 H 4.0-6.0 Dec 18, 2024 12:16 PM [facility] PROTHROMBIN TIME/INR Specimen Type: PLASMA No comment entered. Ordering Provider: BENIGNO KIM A Report Released Date/Time: Sep 27, 2024 10:57 AM Reporting Lab: [facility] [address] Performing Lab: [facility] [address] .INR 0.9 0.8-1.1 .PT 10.3 s 9.4-12.5 Dec 18, 2024 12:16 PM [facility] BASIC METABOLIC PANEL+MG Specimen Type: PLASMA No comment entered. Ordering Provider: BENIGNO KIM A Report Released Date/Time: Sep 27, 2024 10:57 AM Reporting Lab: [facility] [address] Performing Lab: [facility] [address] CREATININE 1.0 mg/dL 0.7-1.2 UREA NITROGEN 19 mg/dL 8-26 GLUCOSE 118 mg/dL H 70-100 SODIUM 139 mmol/L 136-145 POTASSIUM 4.1 mmol/L 3.5-5.1 CHLORIDE 104 mmol/L 98-107 CO2 25 mmol/L 22-29 CALCIUM 9.6 mg/dL 8.4-10.2 MAGNESIUM 2.1 mg/dL 1.6-2.6 ANION GAP 10 mmol/L 5-15 .CREAT EGFR(CKD-EPI) 80 >60 Dec 18, 2024 12:16 PM [facility] CBC & DIFF Specimen Type: BLOOD Comment: Automated Differential Performed Ordering Provider: BENIGNO KIM A Report Released Date/Time: Sep 27, 2024 10:57 AM Reporting Lab: [facility] [address] Performing Lab: [facility] [address] WBC 9.5 4.0-11.0 RBC 5.05 4.60-6.20 HGB [...] Height Weight Body Mass Index Source Jan 11, 2025 09:30 AM 5 [facility] Jan 11, 2025 08:35 AM 8 [facility] Jan 11, 2025 08:31 AM 97.5 50 122/69 16 100 8 [facility] Jan 11, 2025 04:27 AM 6 [facility] Jan 11, 2025 12:28 AM 9 [facility] Social History: Smoking Status (Most current) and Tobacco Use (All prior to encounter date) This section includes the most current, and the historical, smoking and tobacco- related health factors from the [place] facility where the Encounter took place. Current Smoking Status This section includes the most current smoking, or tobacco-related health factor, from the [place] facility where the Encounter took place. Date/Time Current Smoking Status Comment Serina reece Nov 19, 2023 08:00 AM VA-TOBACCO FORMER USER [facility] Tobacco Use History This section includes a history of the smoking, or tobacco-related health factors, that were collected on or before the date of the Encounter. The data comes from the [place] facility where the Encounter took place. Date/Time Smoking Status/Tobacco Use Comment [facility] Nov 19, 2023 08:00 AM VA-TOBACCO QUIT 15 YRS OR MORE [facility] Jan 28, 2023 09:45 AM VA-TOBACCO FORMER USER [facility] Jan 28, 2023 09:45 AM VA-TOBACCO QUIT 15 YRS OR MORE [facility] Oct 30, 2021 03:00 PM VA-TOBACCO FORMER USER [facility] Oct 30, 2021 03:00 PM VA-TOBACCO QUIT 5 TO < 15 YRS [facility] Aug 17, 2019 11:38 AM VA-TOBACCO FORMER USER [facility] Aug 17, 2019 11:38 AM VA-TOBACCO QUIT 5 TO < 15 YRS [facility] Jan 06, 2018 02:39 PM FORMER TOBACCO USER 7Y OR GREATE R [facility] Jan 28, 2017 12:47 PM FORMER TOBACCO USER 7Y OR GREATE R [facility] Jan 21, 2016 03:04 PM FORMER TOBACCO USER 7Y OR GREATE R [facility] Apr 02, 2015 02:05 PM FORMER TOBACCO USER 7Y OR GREATE R [facility] March 01, 2014 09:10 AM FORMER TOBACCO USER 7Y OR GREATE R [facility] Sep 18, 2013 09:13 AM CDM COPD TOBACCO NON-USER [facility] May 28, 2013 11:05 AM LIFETIME NON-TOBACCO USER [facility] May 25, 2013 12:08 PM FORMER TOBACCO USER 7Y OR GREATE R [facility] Jun 18, 2009 09:48 AM FORMER TOBACCO USER 7Y OR GREATE R [facility] Aug 24, 2008 10:10 AM FORMER TOBACCO USE >1Y <7Y [facility] Advance Directives: All historical and current Section Date Range: From patient's date of to the date document was created. This section includes ALL of a patient's completed or amended [place] Advance and Rescinded Directives. The entries below indicate that a directive exists for the patient, but an actual copy is not included with this document. The data comes from all [place] facilities. Date Advance Directives Provider Source March 08, 2023 ADVANCE DIRECTIVE ODILIA CHRISTIANSON [facility] May 02, 2014 ADVANCE DIRECTIVE DISCUSSION QUEENIE SAENZ [facility] May 24, 2013 CLINICAL WARNING GALINDO STUART [facility] Sep 21, 2011 ADVANCE DIRECTIVE JORDAN ZHANG [facility] Radiology Reports: +/- 30 days of the [...] the Encounter. The data comes from all [place] treatment facilities. Date/Time Radiology Report Provider Source Jan 10, 2025 07:58 AM SHOULDER RIGHT 2-3 VIEWS: KEENA ROSA [id number] -1955 M Exm Date: JAN 10, 2025@07:58 Req Phys: SHELLI KIM Loc: OR-PACU/01-10-2025@15:42 Img Loc: MAIN X-RAY Service: [place] [address] (Case [id number] COMPLETE) SHOULDER RIGHT 2-3 VIEWS (RAD Detailed) CPT:52021 Proc Modifiers : PORTABLE EXAM, OPERATING ROOM EXAM Reason for Study: right reverse TSA Clinical History: OR 6 shoulder rotator cuff arthropathy My pager number on record is: . I confirm that the pager number/cell phone number above is correct for reporting critical results. My correct contact # for critial results is:Valerio KIM [phone] Trainees only: Enter your staff provider's info here: LAST CREATININE 1.0 (12/18/24) Report Status: Verified Date Reported: JAN 10, 2025 Date Verified: JAN 10, 2025 Exit Booth Agent E-Sig:/ES/MIRANDA BROOKE MD Report: EXAMINATION: SHOULDER RIGHT 2-3 VIEWS 01/10/2025 7:58 AM INDICATION: right reverse TSA Impression: Right reverse TSA. Components appear well seated. Report Sign Date/Time: 01/10/2025 3:39 PM Primary Interpreting Staff: MIRANDA BROOKE MD, RADIOLOGIST (Exit Booth Agent) /RTS MIRANDA BROOKE [facility]
[2025-01-16 08:00] LABS: Alanine Aminotransferase* 27 U/L (4-50); Alkaline Phosphatase* 80 U/L (40-150); Anion Gap 8 mEq/L (7-15); Aspartate Amino Transferase* 35 U/L (12-35); Bilirubin Total* 0.5 mg/dL (0.1-1.5); Blood Urea Nitrogen* 24 mg/dL (7-30); Calcium* 9.3 mg/dL (8.4-10.6); Carbon Dioxide* 23 mmol/L (20-32); Creatinine* 0.8 mg/dL (0.5-1.5); Est. Creatinine Clearance* 72.16; Estimated Glomerular Filt Rate 95 ml/min; Glucose* 321 mg/dL (60-115); Total Protein* 6.2 g/dL (6.0-8.3)
--- OUTSIDE RECORDS SUMMARY | 2025-01-16 08:00 | XMS_ITS ---
[place] DAILY HOSPITALIZATION DATA [facility] Encounter Summary Created on: January 16, 2025 KEENA ROSA : 1955 Sex: Male Author Name [facility] Address [address] [place] [address] Care Team Providers Care Condemnation Engineer Name Role Phone ZENY MARTIN Primary [...] PART A Oct 18, 2013 PART A [id number] Mary ROSA PATIENT MEDICARE (WNR) MEDICARE (M) PART B Oct 18, 2013 PART B [id number] [phone] Mary ROSA EONARD PATIENT MEDICARE (WNR) MEDICARE (M) PART A Oct 18, 2013 PART A [id number] [phone] Mary ROSA PATIENT Selected Encounter This section includes the information on record at [place] for the Encounter. Date/Time Encounter Type Encounter Description Reason Pro vider Source Jan 10, 2025 11:03 PM Inpatient Visit DAILY HOSPITALIZATION DATA [facility] Encounter Template Text not used by [place] Plan of Treatment: Future Appointments (+ 6 months) and Future Tests (+/- 45 days) The Plan of Treatment section includes future care activities for the patient [facility] This section includes future appointments and future orders which are active, pending or scheduled. Future Appointments This section includes appointments that were scheduled to occur 6 months from the date of the Encounter, up to a maximum of 20 appointments. The data comes from all [facility]. Appointment Date/Time Appointment Type Appointme nt Facility Name Jan 24, 2025 01:00 PM AMBULATORY - SURGERY [facility] Jan 25, 2025 10:00 AM AMBULATORY - MEDICINE [facility] Jan 25, 2025 11:00 AM AMBULATORY - REHAB MEDICIN E [facility] Feb 01, 2025 10:00 AM AMBULATORY - MEDICINE [facility] Feb 01, 2025 11:00 AM AMBULATORY - MEDICINE [facility] Feb 08, 2025 10:00 AM AMBULATORY - MEDICINE [facility] February 22, 2025 10:[address] [facility] February 23, 2025 11:00 AM AMBULATORY - NONE [facility] February 23, 2025 11:30 AM AMBULATORY - SURGERY [facility] March 08, 2025 10:00 AM AMBULATORY - MEDICINE [facility] Apr 09, 2025 01:00 PM AMBULATORY - SURGERY [facility] Active, Pending, and Scheduled Orders This section includes a listing of several types of active, pending, and scheduled orders, including clinic medications orders, diagnostic test orders, procedure orders and consult orders; where the start date of the order is 45 days before the date of the Encounter or 45 days after the date of theEncounter. The data comes from all [facility]. Test Date/Time Test Type Test Details Facility Name Dec 11, 2024 11:04 AM Consult Order PT PHYSICA L THERAPY OUTPT ORTHO SURGERY [facility] Jan 10, 2025 12:00 AM Laboratory - Blood Bank Order TYPE & SCREEN - LAB BLOOD [facility] Jan 12, 2025 08:18 AM Consult Order [facility] Jan 22, 2025 12:00 AM Laboratory - Chemi stry Order BASIC METABOLIC PANEL+MG PLASMA SP [facility] Jan 22, 2025 12:00 AM Laboratory - Chemi stry Order HEMOGLOBIN A1C BLOOD SP ONCE [facility] February 23, 2025 11:00 AM Imaging - General Radiology Order SHOULDER RIGHT 2-[address] [facility] Lab Results: +/- 30 days [...] Range Comment Jan 11, 2025 12:[address] [facility] FINGERSTICK GLUCOSE Specimen Type: BLOOD Comment: Save Result Nurse Notified Ordering Provider: ANDREA WOLF Report Released Date/Time: Jan 11, 2025 12:51 PM Reporting Lab: [facility] [phone] Performing Lab: [facility] [phone] FINGERSTICK GLUCOSE 246 mg/dL H 70-100 Jan 11, 2025 07:[address] [facility] CBC Specimen Type: BLOOD No comment entered. Ordering Provider: ANDREA WOLF Report Released Date/Time: Jan 10, 2025 02:40 PM Reporting Lab: [facility] [id number] Performing Lab: [facility] [phone] WBC 9.7 4.0-11.0 RBC 4.50 L 4.60-6.20 HGB 12.9 g/dL L 13.5-17.9 HCT 42.3 41.0-54.0 MCV 94.0 fL 80.0-100.0 MCH 28.7 pg 27.0-33.0 MCHC 30.5 g/dL L 32.0-37.5 PLT 174 150-400 MPV 11.5 fL 9.1-13.0 RDW 13.3 11.5-14.5 Jan 11, 2025 07:[address] [facility] BASIC METABOLIC PANEL+MG Specimen Type: PLASMA No comment entered. Ordering Provider: ANDREA WOLF Report Released Date/Time: Jan 10, 2025 02:40 PM Reporting Lab: [facility] [phone] Performing Lab: [facility] [phone] CREATININE 1.0 mg/dL 0.7-1.2 UREA NITROGEN 21 mg/dL 8-26 GLUCOSE 203 mg/dL H 70-100 SODIUM 136 mmol/L 136-145 POTASSIUM 4.1 mmol/L 3.5-5.1 CHLORIDE 102 mmol/L 98-107 CO2 23 mmol/L 22-29 CALCIUM 8.8 mg/dL 8.4-10.2 MAGNESIUM 2.0 mg/dL 1.6-2.6 ANION GAP 11 mmol/L 5-15 .CREAT EGFR(CKD-EPI) 80 >60 Jan 11, 2025 06:[address] [facility] FINGERSTICK GLUCOSE Specimen Type: BLOOD Comment: Save Result Nurse Notified Ordering Provider: Lilli CHRISTENSEN Report Released Date/Time: Jan 11, 2025 07:41 AM Reporting Lab: [facility] [phone] Performing Lab: [facility] [phone] FINGERSTICK GLUCOSE 220 mg/dL H 70-100 Jan 10, 2025 08:[address] [facility] FINGERSTICK GLUCOSE Specimen Type: BLOOD Comment: Save Result Nurse Notified Ordering Provider: Lilli CHRISTENSEN Report Released Date/Time: Jan 10, 2025 08:36 PM Reporting Lab: [facility] [phone] Performing Lab: [facility] [phone] FINGERSTICK GLUCOSE 239 mg/dL H 70-100 Jan 10, 2025 04:[address] [facility] FINGERSTICK GLUCOSE Specimen Type: BLOOD Comment: Save Result Nurse Notified Ordering Provider: Lilli CHRISTENSEN Report Released Date/Time: Jan 10, 2025 05:34 PM Reporting Lab: [facility] [phone] Performing Lab: [facility] [phone] FINGERSTICK GLUCOSE 190 mg/dL H 70-100 Jan 10, 2025 02:[address] [facility] FINGERSTICK GLUCOSE Specimen Type: BLOOD Comment: Save Result Nurse Notified Ordering Provider: BENIGNO KIM Report Released Date/Time: Jan 10, 2025 03:01 PM Reporting Lab: [facility] [phone] Performing Lab: [facility] [phone] FINGERSTICK GLUCOSE 183 mg/dL H 70-100 Jan 10, 2025 08:[address] [facility] PROTHROMBIN TIME/INR Specimen Type: PLASMA Comment: ~Draw on admission. Call IV team to draw on admission. Ordering Provider: BENIGNO KIM A Report Released Date/Time: Jan 10, 2025 08:01 AM Reporting Lab: [facility] [phone] Performing Lab: [facility] [phone] .INR 0.9 0.8-1.1 .PT 10.9 s 9.4-12.5 Jan 10, 2025 08:[address] [facility] CBC Specimen Type: BLOOD No comment entered. Ordering Provider: BENIGNO KIM A Report Released Date/Time: Jan 10, 2025 08:01 AM Reporting Lab: [facility] [phone] Performing Lab: [facility] [phone] WBC 6.6 4.0-11.0 RBC 5.00 4.60-6.20 HGB 14.5 g/dL 13.5-17.9 HCT 46.1 41.0-54.0 MCV 92.2 fL 80.0-100.0 MCH 29.0 pg 27.0-33.0 MCHC 31.5 g/dL L 32.0-37.5 PLT 172 150-400 MPV 10.9 fL 9.1-13.0 RDW 13.7 11.5-14.5 Jan 10, 2025 08:[address] [facility] ACT PART THROMBO TIME Specimen Type: PLASMA Comment: ~Draw on admission. Call IV team to draw on admission. Ordering Provider: BENIGNO KIM A Report Released Date/Time: Jan 10, 2025 08:01 AM Reporting Lab: [facility] [phone] Performing Lab: [facility] [phone] APTT 31.4 s 25.1-36.5 Jan 10, 2025 08:[address] [facility] BASIC METABOLIC PANEL+MG Specimen Type: PLASMA No comment entered. Ordering Provider: BENIGNO KIM A Report Released Date/Time: Jan 10, 2025 08:01 AM Reporting Lab: [facility] [phone] Performing Lab: [facility] [phone] CREATININE 0.9 mg/dL 0.7-1.2 UREA NITROGEN 19 mg/dL 8-26 GLUCOSE 151 mg/dL H 70-100 SODIUM 138 mmol/L 136-145 POTASSIUM 3.9 mmol/L 3.5-5.1 CHLORIDE 106 mmol/L 98-107 CO2 23 mmol/L 22-29 CALCIUM 9.3 mg/dL 8.4-10.2 MAGNESIUM 2.0 mg/dL 1.6-2.6 ANION GAP 9 mmol/L 5-15 .CREAT EGFR(CKD-EPI) >90 >60 Jan 10, 2025 08:[address] [facility] FINGERSTICK GLUCOSE Specimen Type: BLOOD Comment: Save Result Ordering Provider: BENIGNO KIM Report Released Date/Time: Jan 10, 2025 10:31 AM Reporting Lab: [facility] [phone] Performing Lab: [facility] [phone] FINGERSTICK GLUCOSE 155 mg/dL H 70-100 Dec 18, 2024 12:[address] [facility] ALBUMIN Specimen Type: PLASMA No comment entered. Ordering Provider: BENIGNO KIM Report Released Date/Time: Sep 27, 2024 10:57 AM Reporting Lab: [facility] [phone] Performing Lab: [facility] [phone] ALBUMIN 4.4 g/dL 3.5-5.0 Dec 18, 2024 12:[address] [facility] HEMOGLOBIN A1C Specimen Type: BLOOD [...] Sep 27, 2024 10:57 AM Reporting Lab: [facility] [phone] Performing Lab: [facility] [phone] HEMOGLOBIN A1C 7.1 H 4.0-6.0 Dec 18, 2024 12:[address] [facility] PROTHROMBIN TIME/INR Specimen Type: PLASMA No comment entered. Ordering Provider: BENIGNO KIM A Report Released Date/Time: Sep 27, 2024 10:57 AM Reporting Lab: [facility] [phone] Performing Lab: [facility] [address] .INR 0.9 0.8-1.1 .PT 10.3 s 9.4-12.5 Dec 18, 2024 12:[address] [facility] BASIC METABOLIC PANEL+MG Specimen Type: PLASMA No comment entered. Ordering Provider: BENIGNO KIM A Report Released Date/Time: Sep 27, 2024 10:57 AM Reporting Lab: [facility] [phone] Performing Lab: [facility] [phone] CREATININE 1.0 mg/dL 0.7-1.2 UREA NITROGEN 19 mg/dL 8-26 GLUCOSE 118 mg/dL H 70-100 SODIUM 139 mmol/L 136-145 POTASSIUM 4.1 mmol/L 3.5-5.1 CHLORIDE 104 mmol/L 98-107 CO2 25 mmol/L 22-29 CALCIUM 9.6 mg/dL 8.4-10.2 MAGNESIUM 2.1 mg/dL 1.6-2.6 ANION GAP 10 mmol/L 5-15 .CREAT EGFR(CKD-EPI) 80 >60 Dec 18, 2024 12:[address] [facility] CBC & DIFF Specimen Type: BLOOD Comment: Automated Differential Performed Ordering Provider: BENIGNO KIM A Report Released Date/Time: Sep 27, 2024 10:57 AM Reporting Lab: [facility] [phone] Performing Lab: [facility] [phone] WBC 9.5 4.0-11.0 RBC 5.05 4.60-6.20 HGB [...] Source Jan 10, 2025 08:57 PM 6 [facility] Jan 10, 2025 07:57 PM 7 [facility] Jan 10, 2025 05:58 PM 187.8 27 [facility] Jan 10, 2025 09:21 AM 186 27 [facility] Jan 10, 2025 09:20 AM 98 61 128/73 16 98 7 [facility] Social History: Smoking Status (Most current) [...] 19, 2023 08:00 AM VA-TOBACCO FORMER USER [facility] Tobacco Use History This section includes a history of the smoking, or tobacco-related health factors, that were collected on or before the date of the Encounter. The data comes from the [place] facility where the Encounter took place. Date/Time Smoking Status/Tobacco Use Comment F mahamed Nov 19, 2023 08:00 AM VA-TOBACCO QUIT [address] [facility] Jan 28, 2023 09:45 AM VA-TOBACCO FORMER USER [facility] Jan 28, 2023 09:45 AM VA-TOBACCO QUIT [address] [facility] Oct 30, 2021 03:00 PM VA-TOBACCO FORMER USER [facility] Oct 30, 2021 03:00 PM VA-TOBACCO QUIT 5 TO < [address] [facility] Aug 17, 2019 11:38 AM VA-TOBACCO FORMER USER [facility] Aug 17, 2019 11:38 AM VA-TOBACCO QUIT 5 TO < [address] [facility] Jan 06, 2018 02:39 PM FORMER TOBACCO USER 7Y OR GREATE R [facility] Jan 28, 2017 12:47 PM FORMER TOBACCO USER 7Y OR GREATE R [facility] Jan 21, 2016 03:04 PM FORMER TOBACCO USER 7Y OR GREATE R [facility] Apr 02, 2015 02:05 PM FORMER TOBACCO USER 7Y OR GREATE R [facility] March 01, 2014 09:10 AM FORMER TOBACCO USER 7Y OR GREATE R [facility] Sep 18, 2013 09:13 AM CDM COPD TOBACCO NON-USER [facility] May 28, 2013 11:05 AM LIFETIME NON-TOBACCO USER [facility] May 25, 2013 12:08 PM FORMER TOBACCO USER 7Y OR GREATE R [facility] Jun 18, 2009 09:48 AM FORMER TOBACCO USER 7Y OR GREATE R [facility] Aug 24, 2008 10:10 AM FORMER TOBACCO USE >1Y <7Y [facility] Advance Directives: All historical and [...] March 08, 2023 ADVANCE DIRECTIVE ODILIA [facility]IANSON [facility] May 02, 2014 ADVANCE DIRECTIVE DISCUSSION QUEENIE SAENZ [facility] May 24, 2013 CLINICAL WARNING GALINDO STUART [facility] Sep 21, 2011 ADVANCE DIRECTIVE JORDAN ZHANG [facility] Radiology Reports: +/- 30 days of the [...] the Encounter. The data comes from all [place] treatment facilities. Date/Time Radiology Report Provider Source Jan 10, 2025 07:58 AM SHOULDER RIGHT 2-3 VIEWS: KEEAN ROSA [id number] -1955 M Exm Date: JAN 10, 2025@07:58 Req Phys: SHELLI KIM Loc: OR-PACU/01-10-2025@15:42 Img Loc: MAIN X-RAY Service: [place] [address] (Case [id number] COMPLETE) SHOULDER RIGHT 2-3 VIEWS (RAD Detailed) CPT:72374 Proc Modifiers : PORTABLE EXAM, OPERATING ROOM EXAM Reason for Study: right reverse TSA Clinical History: OR 6 shoulder rotator cuff arthropathy My pager number on record is: . I confirm that the pager number/cell phone number above is correct for reporting critical results. My correct contact # for critial results is:Valerio KIM [phone] Trainees only: Enter your staff provider's info here: LAST CREATININE 1.0 (12/18/24) Report Status: Verified Date Reported: JAN 10, 2025 Date Verified: JAN 10, 2025 English Adjunct Faculty E-Sig:/ES/MIRANDA BROOKE MD Report: EXAMINATION: SHOULDER RIGHT 2-3 VIEWS 01/10/2025 7:58 AM INDICATION: right reverse TSA Impression: Right reverse TSA. Components appear well seated. Report Sign Date/Time: 01/10/2025 3:39 PM Primary Interpreting Staff: MIRANDA BROOKE MD, RADIOLOGIST (English Adjunct Faculty) /RTS MIRANDA BROOKE [facility]
--- OUTSIDE RECORDS SUMMARY | 2025-01-16 08:00 | XMS_ITS | Encounter Summary ---
Author Name [facility] [facility] [place] [facility] [facility] [place] Address [address] [place] [address] Care Team Providers Care Clinical Studies Specialist Name Role Phone ZENY MARTIN Primary Care [...] PART A Oct 18, 2013 PART A [id number] [phone] Mary ROSA PATIENT MEDICARE (WNR) MEDICARE (M) PART B Oct 18, 2013 PART B [id number] [phone] Mary ROSA EORODNEY PATIENT MEDICARE (WNR) MEDICARE (M) PART A Oct 18, 2013 PART A [id number] Mary ROSA PATIENT Selected Encounter This section includes the information on record at [place] for the Encounter. Date/Time Encounter Type Encounter Description Reason Provider Source Sep 22, 2024 03:00 PM OFFICE O/P EST MOD 30 MIN OPHTHALMOLOGY ICD-10-CM H40.1131 Primary open-angle glaucoma, bilateral, mild stage ABA TILLEY Bandar Encounter Template Text not used by [place] Assessments - Encounter Diagnoses This section includes the primary and secondary diagnoses documented for the Encounter. Date/Time Primary/Secondary Diagnosis Diagnosis Name Provider Source Sep 22, 2024 04:13 PM PRIMARY Primary open-angle glaucoma, bilateral, mild stage [facility] Sep 22, 2024 04:13 PM SECONDARY Age-related nuclear cataract, bilateral [facility] Sep 22, 2024 04:13 PM SECONDARY Dry eye syndrome of bilateral lacrimal glands [facility] Sep 22, 2024 04:13 PM SECONDARY Myopia, bilateral [facility] Sep 22, 2024 04:13 PM SECONDARY Type 2 diabetes mellitus without complications [facility] Sep 22, 2024 04:13 PM SECONDARY Unspecified blepharitis left lower eyelid [facility] Sep 22, 2024 04:13 PM SECONDARY Unspecified blepharitis left upper eyelid [facility] Sep 22, 2024 04:13 PM SECONDARY Unspecified blepharitis right lower eyelid [facility] Sep 22, 2024 04:13 PM SECONDARY Unspecified blepharitis right upper eyelid [facility] Plan of Treatment: Future Appointments (+ 6 months) and Future Tests (+/- 45 days) The Plan of Treatment section includes future care activities for the patient from all [place] [facility]. This section includes future appointments and future orders which are active, pending or scheduled. Future Appointments This section includes appointments that were scheduled to occur 6 months from the date of the Encounter, up to a maximum of 20 appointments. The data comes from all [place] [facility]. Appointment Date/Time Appointment Type Appointme nt Facility Name Sep 25, 2024 11:15 AM AMBULATORY - SURGERY [facility] Sep 25, 2024 12:15 PM [facility] Sep 25, 2024 01:00 PM [facility] Sep 25, 2024 02:00 PM [facility] Sep 25, 2024 02:15 PM [facility] [place] [facility] Oct 05, 2024 10:00 AM [facility] Nov 02, 2024 10:00 AM [facility] Nov 02, 2024 11:15 AM [place] [facility] Nov 15, 2024 01:30 PM [place] [facility] Nov 30, 2024 10:00 AM [place] [facility] Dec 07, 2024 08:45 AM AM[place]ULATORY - [place] [facility] Dec 14, 2024 10:00 AM [facility] Dec 18, 2024 07:00 AM [facility] [place] [facility] Dec 18, 2024 01:00 PM [place]ORY [place] [facility] [facility] Dec 18, 2024 01:15 PM [place] [facility] Dec 18, 2024 01:45 PM [place] [facility] Dec 18, 2024 02:00 PM [place] [facility] Dec 18, 2024 02:30 PM [facility] Dec 19, 2024 11:00 AM AMBULATORY - REHAB MEDICIN [facility] Dec 27, 2024 07:00 AM [facility] Active, Pending, and Scheduled Orders This section includes a listing of several types of active, pending, and scheduled orders, including clinic medications orders, diagnostic test orders, procedure orders and consult orders; where the start date of the order is 45 days before the date of the Encounter or 45 days after the date of theEncounter. The data comes from all [facility]. Test Date/Time Test Type Test Details Facility Name Sep 18, 2024 12:00 AM Laboratory - Blood Bank Order TYPE & SCREEN - LAB BLOOD [facility] Sep 27, 2024 12:00 AM Laboratory - Blood Bank Order TYPE & SCREEN - LAB BLOOD [facility] Lab Results: +/- 30 days of the encounter This section includes the Chemistry and Hematology Lab Results on record with [place] for the patient. Radiology Reports and Pathology Reports are provided separately, in subsequent sections. Lab Results This section contains the Chemistry/Hematology Results that were resulted 30 days before or 30 daysafter the date of the Encounter. Date/Time Source Result Type Result - Unit Interpretation Reference Range Comment Sep 25, 2024 02:00 PM [facility] ALBUMIN/CREATININE RATIO URINE Specimen Type: URINE No comment entered. Ordering Provider: KRISTEN BARRETO Report Released Date/Time: Sep 25, 2024 01:52 PM Reporting Lab: [facility] [id number] Performing Lab: [facility] [id number] CREATININE,UR RANDOM 46.1 mg/dL L 58.0-161.0 ALB/CREAT RATIO,UR 19.1 mg/g{creat} <29.9 ALBUMIN,UR 8.8 mg/L <29.9 Sep 25, 2024 11:31 AM [facility] HEMOGLOBIN A1C Specimen Type: BLOOD [...] Mar 27, 2024 01:40 PM Reporting Lab: [facility] [id number] Performing Lab: [facility] [phone] HEMOGLOBIN A1C 7.4 H 4.0-6.0 Sep 25, 2024 11:31 AM [facility] BASIC METABOLIC PANEL+MG Specimen Type: PLASMA No comment entered. Ordering Provider: KRISTEN BARRETO Report Released Date/Time: Mar 27, 2024 01:40 PM Reporting Lab: [facility] [phone] Performing Lab: [facility] [phone] CREATININE 1.0 mg/dL 0.7-1.2 UREA NITROGEN 22 mg/dL 8-26 GLUCOSE 171 mg/dL H 70-100 SODIUM 140 mmol/L 136-145 POTASSIUM 3.9 mmol/L 3.5-5.1 CHLORIDE 107 mmol/L 98-107 CO2 25 mmol/L 22-29 CALCIUM 9.7 mg/dL 8.4-10.2 MAGNESIUM 2.1 mg/dL 1.6-2.6 ANION GAP 8 mmol/L 5-15 .CREAT EGFR(CKD-EPI) 80 >60 Sep 18, 2024 02:59 PM [facility] PROTHROMBIN TIME/INR Specimen Type: PLASMA No comment entered. Ordering Provider: ADALGISA GARCIA Report Released Date/Time: Sep 18, 2024 02:19 PM Reporting Lab: [facility] [phone] Performing Lab: [facility] [phone] .INR 0.9 0.8-1.1 .PT 11.1 s 9.4-12.5 Sep 18, 2024 02:59 PM [facility] ALBUMIN Specimen Type: PLASMA No comment entered. Ordering Provider: ADALGISA GARCIA Report Released Date/Time: Sep 18, 2024 02:19 PM Reporting Lab: [facility] [phone] Performing Lab: [facility] [phone] ALBUMIN 4.7 g/dL 3.5-5.0 Sep 18, 2024 02:59 PM [facility] BASIC METABOLIC PANEL+MG Specimen Type: PLASMA No comment entered. Ordering Provider: ADALGISA GARCIA Report Released Date/Time: Sep 18, 2024 02:19 PM Reporting Lab: [facility] [phone] Performing Lab: [facility] [phone] CREATININE 1.1 mg/dL 0.7-1.2 UREA NITROGEN 14 mg/dL 8-26 GLUCOSE 139 mg/dL H 70-100 SODIUM 141 mmol/L 136-145 POTASSIUM 3.9 mmol/L 3.5-5.1 CHLORIDE 105 mmol/L 98-107 CO2 28 mmol/L 22-29 CALCIUM 9.8 mg/dL 8.4-10.2 MAGNESIUM 1.9 mg/dL 1.6-2.6 ANION GAP 8 mmol/L 5-15 .CREAT EGFR(CKD-EPI) 72 >60 Sep 18, 2024 02:59 PM [facility] HEMOGLOBIN A1C Specimen Type: BLOOD [...] Sep 18, 2024 02:19 PM Reporting Lab: [facility] [phone] Performing Lab: [facility] [phone] HEMOGLOBIN A1C 7.3 H 4.0-6.0 Sep 18, 2024 02:59 PM [facility] CBC & DIFF Specimen Type: BLOOD Comment: Automated Differential Performed Ordering Provider: ADALGISA GARCIA Report Released Date/Time: Sep 18, 2024 02:19 PM Reporting Lab: [facility] [phone] Performing Lab: [facility] [phone] WBC 8.7 4.0-11.0 RBC 5.40 4.60-6.20 HGB [...] ,PRO) 0.5 ABS IMMATURE GRAN 0.0 0.0-0.1 Social History: Smoking Status (Most current) and Tobacco Use (All prior to encounter date) This section includes the most current, and the historical, smoking and tobacco- related health factors from the [place] facility where the Encounter took place. Current Smoking Status This section includes the most current smoking, or tobacco-related health factor, from the [place] facility where the Encounter took place. Date/Time Current Smoking Status Comment Facil [place] Nov 19, 2023 08:00 AM VA-TOBACCO FORMER USER [facility] Tobacco Use History This section includes a history of the smoking, or tobacco-related health factors, that were collected on or before the date of the Encounter. The data comes from the [place] facility where the Encounter took place. Date/Time Smoking Status/Tobacco Use Comment F acility Nov 19, 2023 08:00 AM VA-TOBACCO QUIT 15 YRS OR MORE [facility] Jan 28, 2023 09:45 AM VA-TOBACCO FORMER USER [facility] Jan 28, 2023 09:45 AM VA-TOBACCO QUIT 15 YRS OR MORE [facility] Oct 30, 2021 03:00 PM VA-TOBACCO FORMER USER [facility] Oct 30, 2021 03:00 PM VA-TOBACCO QUIT 5 TO < 15 YRS [facility] Aug 17, 2019 11:38 AM VA-TOBACCO FORMER USER [facility] Aug 17, 2019 11:38 AM VA-TOBACCO QUIT 5 TO < 15 YRS [facility] Jan 06, 2018 02:39 PM FORMER TOBACCO USER 7Y OR GREATE R [facility] Jan 28, 2017 12:47 PM FORMER TOBACCO USER 7Y OR GREATE R [facility] Jan 21, 2016 03:04 PM FORMER TOBACCO USER 7Y OR GREATE R [facility] Apr 02, 2015 02:05 PM FORMER TOBACCO USER 7Y OR GREATE R [facility] March 01, 2014 09:10 AM FORMER TOBACCO USER 7Y OR GREATE R [facility] Sep 18, 2013 09:13 AM CDM COPD TOBACCO NON-USER [facility] May 28, 2013 11:05 AM LIFETIME NON-TOBACCO USER [facility] May 25, 2013 12:08 PM FORMER TOBACCO USER 7Y OR GREATE R [facility] Jun 18, 2009 09:48 AM FORMER TOBACCO USER 7Y OR GREATE R [facility] Aug 24, 2008 10:10 AM FORMER TOBACCO USE >1Y <7Y [facility] Advance Directives: All historical and current Section Date Range: From patient's date of to the date document was created. This section includes ALL of a patient's completed or amended [place] Advance and Rescinded Directives. The entries below indicate that a directive exists for the patient, but an actual copy is not included with this document. The data comes from all [place] facilities. Date Advance Directives Provider Source March 08, 2023 ADVANCE DIRECTIVE ODILIA CHRISTIANSON [facility] May 02, 2014 ADVANCE DIRECTIVE DISCUSSION QUEENIE SAENZ [facility] May 24, 2013 CLINICAL WARNING GALINDO STUART [facility] Sep 21, 2011 ADVANCE DIRECTIVE JORDAN ZHANG [facility] Encounter Notes: All associated encounter notes This section contains the clinical notes associated to the Encounter. Date/Time Encounter Note(s) Provider Source Sep 22, 2024 03:37 PM OPHTHALMOLOGY ATTE NDING NOTE: LOCAL TITLE: OPHTHALMOLOGY CLINIC NOTE STANDARD TITLE: OPHTHALMOLOGY ATTENDING NOTE DATE OF NOTE: SEP 22, 2024@15:37 ENTRY DATE: SEP 22, 2024@15:37:57 AUTHOR: ABA TILLEY EXP COSIGNER: URGENCY: STATUS: COMPLETED 69 yo here for a DM exam. The pt misses a few doses of drops per month. The pt has issues with both eyes watering. The pt is happy with his vision. Results HEMOGLOBIN A1C BLOOD SP #[id number] Collection time: Sep 18, 2024@14:59 Test Name Result Units Range --------- ------ ----- ----- HEMOGLOBIN A1C 7.3 H % 4.0 - 6.0 I have reviewed and agree with the vtc technician note of today Patient is alert and oriented X3 and mood and affect are appropriate. SLE: Ext: Nl ou LLL: Scurf ou C/S: W and Q ou K: PEE OU AC: D and Q ou Iris: R and F ou Lens: 1+ NSC OU DFE ON: Enlarged cupping ou C/D: 0.7/0.8 MVP: Small hard drusen OU DDT - Neg Assessment/Plan: # POAG, Mild OU - IOPs are controlled. VFs and OCTs are stable. CCM. Recheck in 1 year. - Takes Lat ou qhs, simb ou bid - s/p ALT LE inf 04/30 - FHx - Neg - Tm 20/25 - CCT 05/30 - 567/584 - OCT 10/10 - S Th, stable OD, S and I Th stable OS - HVF 10/10 - Nonspec LTF OU - Gonio 04/10 - CB open 360 OU # FRED OU - PEG qid ou prn. # Blepharitis OU - lid hygiene PRN. # Cataracts OU - Good vision, monitor. # DM - No DR, control BS/BP. # Myopia OU - New Rx today. 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 Wears glasses near only- has to use a flashlight to read at home, even w/ glasses. Constant watering- no ATs. Denies diplopia. No fl/fl. 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 Eyes felt like sandpaper after. Pt states it took a long time to help. Pt was using more of his glaucoma eye gtts. POHx: POAG (- s/p ALT LE inf 04/30), NIDDM, cataracts OU, myopia Eye Sx: denies FOHx: sister is blind in one eye (uncertain the cause) Social History Alcohol: yes (6+ years ago) Tobacco: denies Surgeries: FEBRUARY 22, 2025 Proc: Right reverse TSA MARCH 08, 2023 Proc: Right Total Knee Arthroplasty JAN 09, 2022 Proc: ercp JAN 13, 2022 Proc: left total hip arthroplasty Allergies: LISINOPRIL (February 18, 2009) LOSARTAN (February 18, 2009) AMLODIPINE (Jun 18, 2009) DEMEROL HYDROCHLORIDE INJECTION 50 MG/ML (March 04, 2014) GABAPENTIN (Jan 23, 2016) DULOXETINE (Feb 11, 2016) No new Allergies. - scVa OD: -1 OS: -2 OU: -1/+1 ccVa w/ last MR in the phoropter OD: 20-1 w/ time OS: 2050 Last MR & ccVa 03/24/24 OD: -1.00 +0.50 x180 20/20 OS: -0.25 sphere 20/20 Manifest Refraction GLARE BAT(H) OD: -1.00 +0.50 x180 20/20 slowly 20/40 OS: -0.75 +0.50 x180 20/30 slowly , ghosting that comes and goes 20/125+ ADD +2.75 20/20 Confrontational Bhatt: Full to finger counting: Right: Yes Left: Yes Extra Ocular Movement: Normal Pupils: Right: Round Left: Round Size: Right: 3 Left: 3 React to light: Right: Yes Left: Yes Afferent pupil defect: Right: No Left: No (IOP): applanation OD: 9 OS: 10 Dilation: tropicamide 1% and neosynephrine OU @3:18pm /kyle/ [facility] Signed: 09/22/2024 15:21 /kyle/ ABA TILLEY MD STAFF DYE MACHINE TENDER Signed: 09/22/2024 16:13 ABA TILLEY [facility] Sep 22, 2024 03:28 PM OPHTHALMOLOGY CONS ULT: LOCAL TITLE: OPHTHALMOLOGY IMAGING MSP OUTPT CONSULT STANDARD TITLE: OPHTHALMOLOGY CONSULT DATE OF NOTE: SEP 22, 2024@15:28 ENTRY DATE: SEP 22, 2024@15:28:23 AUTHOR: PRADEEP WONG EXP COSIGNER: URGENCY: STATUS: COMPLETED RNFL OCT done ou. images uploaded for review. /kyle/ NIGEL [facility] [employer] Driver Signed: 09/22/2024 15:28 PRADEEP WONG [facility] Sep 22, 2024 02:50 PM OPHTHALMOLOGY TECH NICIAN NOTE: LOCAL TITLE: INORGANIC CHEMISTRY TEACHER NOTE STANDARD TITLE: INORGANIC CHEMISTRY TEACHER NOTE DATE OF NOTE: SEP 22, 2024@14:50 ENTRY DATE: SEP 22, 2024@14:50:49 AUTHOR: JACK AGUIRRE EXP COSIGNER: URGENCY: STATUS: COMPLETED Eye Start Exam Patient: KEENA ROSA Sex: MALE SSN: [id number] Birthdate: [birth year] CC: constant watering OU/flashlight for reading/welding eye injury 6mo f/u - VTD 24-2, rnfl HPI: Denies difficulty @ d/n. Wears glasses near only- has to use a flashlight to read at home, even w/ glasses. Constant watering- no ATs. Denies diplopia. No fl/fl. 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 Eyes felt like sandpaper after. Pt states it took a long time to help. Pt was using more of his glaucoma eye gtts. POHx: POAG (- s/p ALT LE inf 04/30), NIDDM, cataracts OU, myopia Eye Sx: denies FOHx: sister is blind in one eye (uncertain the cause) Social History Alcohol: yes (6+ years ago) Tobacco: denies Surgeries: FEBRUARY 22, 2025 Proc: Right reverse TSA MARCH 08, 2023 Proc: Right Total Knee Arthroplasty JAN 09, 2022 Proc: ercp JAN 13, 2022 Proc: left total hip arthroplasty Allergies: LISINOPRIL (February 18, 2009) LOSARTAN (February 18, 2009) AMLODIPINE (Jun 18, 2009) DEMEROL HYDROCHLORIDE INJECTION 50 MG/ML (March 04, 2014) GABAPENTIN (Jan 23, 2016) DULOXETINE (Feb 11, 2016) No new Allergies. - scVa OD: -1 OS: -2 OU: -1/+1 ccVa w/ last MR in the phoropter OD: -1 w/ time OS: 20/50 Last MR & ccVa 03/24/24 OD: -1.00 +0.50 x180 20/20 OS: -0.25 sphere 20/20 Manifest Refraction GLARE BAT(H) OD: -1.00 +0.50 x180 20/20 slowly 20/40 OS: -0.75 +0.50 x180 20/30 slowly , ghosting that comes and goes 20/125+ ADD +2.75 20/20 Confrontational Bhatt: Full to finger counting: Right: Yes Left: Yes Extra Ocular Movement: Normal Pupils: Right: Round Left: Round Size: Right: 3 Left: 3 React to light: Right: Yes Left: Yes Afferent pupil defect: Right: No Left: No (IOP): applanation OD: 9 OS: 10 Dilation: tropicamide 1% and neosynephrine OU @3:18pm /kyle/ [facility] Signed: 09/22/2024 15:21 AJCK AGUIRRE [facility]
--- OUTSIDE RECORDS SUMMARY | 2025-01-16 08:00 | XMS_ITS ---
[facility] Encounter Summary Created on: January 16, 2025 MOEKEENA : 1955 Sex: Male Author Name [facility] [place] [place] [facility] [place] Address [address] [place] [address] Care Team Providers Care Education Reporter Name Role Phone ZENY MARTIN Primary Care [...] Policy Enrique MEDICARE (WNR) MEDICARE (M) PART B Oct 18, 2013 PART B [id number] [phone] Mary ROSA PATIENT MEDICARE (WNR) MEDICARE (M) PART A Oct 18, 2013 PART A [id number] [phone] Mary ROSA EORODNEY PATIENT MEDICARE (WNR) MEDICARE (M) PART A Oct 18, 2013 PART A [id number] Mary ROSA PATIENT Selected Encounter This section includes the information on record at [place] for the Encounter. Date/Time Encounter Type Encounter Description Reason Pro vider Source Jan 10, 2025 07:59 AM Inpatient Visit HOSPITALIZATION SHELLI KIM Encounter Template Text not used by [facility] Plan of Treatment: Future Appointments (+ 6 months) and Future Tests (+/- 45 days) The Plan of Treatment section includes future care activities for the patient from all [facility]. This section includes future appointments and future orders which are active, pending or scheduled. Future Appointments This section includes appointments that were scheduled to occur 6 months from the date of the Encounter, up to a maximum of 20 appointments. The data comes from all [facility] [address]. Appointment Date/Time Appointment Type Appointme nt Facility Name Jan 24, 2025 01:00 PM AMBULATORY - SURGERY [facility] Jan 25, 2025 10:00 AM AMBULATORY - MEDICINE [facility] Jan 25, 2025 11:00 AM AMBULATORY - REHAB MEDICIN E [facility] Feb 01, 2025 10:00 AM AMBULATORY - MEDICINE [facility] Feb 01, 2025 11:00 AM AMBULATORY - MEDICINE [facility] Feb 08, 2025 10:00 AM AMBULATORY - MEDICINE [facility] February 22, 2025 10:00 AM AMBULATORY - MEDICINE [facility] February 23, 2025 11:00 AM AMBULATORY - NONE [facility] February 23, 2025 11:30 AM AMBULATORY - SURGERY [facility] March 08, 2025 10:00 AM AMBULATORY - MEDICINE [facility] Apr 09, 2025 01:00 PM AMBULATORY - SURGERY [facility] Active, Pending, and Scheduled Orders This section includes a listing of several types of active, pending, and scheduled orders, including clinic medications orders, diagnostic test orders, procedure orders and consult orders; where the start date of the order is 45 days before the date of the Encounter or 45 days after the date of theEncounter. The data comes from all [facility] [address]. Test Date/Time Test Type Test Details Facility Name Dec 11, 2024 11:04 AM Consult Order PT PHYSICA L THERAPY OUTPT ORTHO SURGERY [facility] Jan 10, 2025 12:00 AM Laboratory - Blood Bank Order TYPE & SCREEN - LAB BLOOD [facility] Jan 12, 2025 08:18 AM Consult Order [facility] Jan 22, 2025 12:00 AM Laboratory - Chemi stry Order HEMOGLOBIN A1C BLOOD SP ONCE [facility] Jan 22, 2025 12:00 AM Laboratory - Chemi stry Order BASIC METABOLIC PANEL+MG PLASMA SP [facility] February 23, 2025 11:00 AM Imaging - General Radiology Order SHOULDER RIGHT 2-3 VIEWS RIGHT [facility] Lab Results: +/- 30 days of the encounter This section includes the Chemistry and Hematology Lab Results on record with [place] for the patient. Radiology Reports and Pathology Reports are provided separately, in subsequent sections. Lab Results This section contains the Chemistry/Hematology Results that were resulted 30 days before or 30 daysafter the date of the Encounter. Date/Time Source Result Type Result - Unit Interpretation Reference Range Comment Jan 11, 2025 12:21 PM [facility] FINGERSTICK GLUCOSE Specimen Type: BLOOD Comment: Save Result Nurse Notified Ordering Provider: ANDREA WOLF Report Released Date/Time: Jan 11, 2025 12:51 PM Reporting Lab: [facility] [id number] Performing Lab: [facility] [phone] FINGERSTICK GLUCOSE 246 mg/dL H 70-100 Jan 11, 2025 07:37 AM [facility] CBC Specimen Type: BLOOD No comment entered. Ordering Provider: ANDREA WOLF Report Released Date/Time: Jan 10, 2025 02:40 PM Reporting Lab: [facility] [id number] Performing Lab: [facility] [phone] WBC 9.7 4.0-11.0 RBC 4.50 L 4.60-6.20 HGB 12.9 g/dL L 13.5-17.9 HCT 42.3 41.0-54.0 MCV 94.0 fL 80.0-100.0 MCH 28.7 pg 27.0-33.0 MCHC 30.5 g/dL L 32.0-37.5 PLT 174 150-400 MPV 11.5 fL 9.1-13.0 RDW 13.3 11.5-14.5 Jan 11, 2025 07:37 AM [facility] BASIC METABOLIC PANEL+MG Specimen Type: PLASMA No comment entered. Ordering Provider: ANDREA WOLF Report Released Date/Time: Jan 10, 2025 02:40 PM Reporting Lab: [facility] [id number] Performing Lab: [facility] [phone] CREATININE 1.0 mg/dL 0.7-1.2 UREA NITROGEN 21 mg/dL 8-26 GLUCOSE 203 mg/dL H 70-100 SODIUM 136 mmol/L 136-145 POTASSIUM 4.1 mmol/L 3.5-5.1 CHLORIDE 102 mmol/L 98-107 CO2 23 mmol/L 22-29 CALCIUM 8.8 mg/dL 8.4-10.2 MAGNESIUM 2.0 mg/dL 1.6-2.6 ANION GAP 11 mmol/L 5-15 .CREAT EGFR(CKD-EPI) 80 >60 Jan 11, 2025 06:10 AM [facility] FINGERSTICK GLUCOSE Specimen Type: BLOOD Comment: Save Result Nurse Notified Ordering Provider: Lilli CHRISTENSEN Report Released Date/Time: Jan 11, 2025 07:41 AM Reporting Lab: [facility] [phone] Performing Lab: [facility] [phone] FINGERSTICK GLUCOSE 220 mg/dL H 70-100 Jan 10, 2025 08:11 PM [facility] FINGERSTICK GLUCOSE Specimen Type: BLOOD Comment: Save Result Nurse Notified Ordering Provider: Lilli CHRISTENSEN Report Released Date/Time: Jan 10, 2025 08:36 PM Reporting Lab: [facility] [phone] Performing Lab: [facility] [phone] FINGERSTICK GLUCOSE 239 mg/dL H 70-100 Jan 10, 2025 04:30 PM [facility] FINGERSTICK GLUCOSE Specimen Type: BLOOD Comment: Save Result Nurse Notified Ordering Provider: Lilli CHRISTENSEN Report Released Date/Time: Jan 10, 2025 05:34 PM Reporting Lab: [facility] [phone] Performing Lab: [facility] [address] FINGERSTICK GLUCOSE 190 mg/dL H 70-100 Jan 10, 2025 02:40 PM [facility] FINGERSTICK GLUCOSE Specimen Type: BLOOD Comment: Save Result Nurse Notified Ordering Provider: BENIGNO KIM Report Released Date/Time: Jan 10, 2025 03:01 PM Reporting Lab: [facility] [phone] Performing Lab: [facility] [phone] FINGERSTICK GLUCOSE 183 mg/dL H 70-100 Jan 10, 2025 08:35 AM [facility] ACT PART THROMBO TIME Specimen Type: PLASMA Comment: ~Draw on admission. Call IV team to draw on admission. Ordering Provider: BENIGNO KIM Report Released Date/Time: Jan 10, 2025 08:01 AM Reporting Lab: [facility] [phone] Performing Lab: [facility] [address] APTT 31.4 s 25.1-36.5 Jan 10, 2025 08:35 AM [facility] PROTHROMBIN TIME/INR Specimen Type: PLASMA Comment: ~Draw on admission. Call IV team to draw on admission. Ordering Provider: BENIGNO KIM Report Released Date/Time: Jan 10, 2025 08:01 AM Reporting Lab: [facility] [phone] Performing Lab: [facility] [phone] .INR 0.9 0.8-1.1 .PT 10.9 s 9.4-12.5 Jan 10, 2025 08:35 AM [facility] CBC Specimen Type: BLOOD No comment entered. Ordering Provider: BENIGNO KIM A Report Released Date/Time: Jan 10, 2025 08:01 AM Reporting Lab: [facility] [phone] Performing Lab: [facility] [address] WBC 6.6 4.0-11.0 RBC 5.00 4.60-6.20 HGB 14.5 g/dL 13.5-17.9 HCT 46.1 41.0-54.0 MCV 92.2 fL 80.0-100.0 MCH 29.0 pg 27.0-33.0 MCHC 31.5 g/dL L 32.0-37.5 PLT 172 150-400 MPV 10.9 fL 9.1-13.0 RDW 13.7 11.5-14.5 Jan 10, 2025 08:35 AM [facility] FINGERSTICK GLUCOSE Specimen Type: BLOOD Comment: Save Result Ordering Provider: BENIGNO KIM A Report Released Date/Time: Jan 10, 2025 10:31 AM Reporting Lab: [facility] [phone] Performing Lab: [facility] [address] FINGERSTICK GLUCOSE 155 mg/dL H 70-100 Jan 10, 2025 08:35 AM [facility] BASIC METABOLIC PANEL+MG Specimen Type: PLASMA No comment entered. Ordering Provider: BENIGNO KIM A Report Released Date/Time: Jan 10, 2025 08:01 AM Reporting Lab: [facility] [id number] Performing Lab: [facility] [phone] CREATININE 0.9 mg/dL 0.7-1.2 UREA NITROGEN 19 mg/dL 8-26 GLUCOSE 151 mg/dL H 70-100 SODIUM 138 mmol/L 136-145 POTASSIUM 3.9 mmol/L 3.5-5.1 CHLORIDE 106 mmol/L 98-107 CO2 23 mmol/L 22-29 CALCIUM 9.3 mg/dL 8.4-10.2 MAGNESIUM 2.0 mg/dL 1.6-2.6 ANION GAP 9 mmol/L 5-15 .CREAT EGFR(CKD-EPI) >90 >60 Dec 18, 2024 12:16 PM [facility] ALBUMIN Specimen Type: PLASMA No comment entered. Ordering Provider: BENIGNO KIM A Report Released Date/Time: Sep 27, 2024 10:57 AM Reporting Lab: [facility] [phone] Performing Lab: [facility] [address] ALBUMIN 4.4 g/dL 3.5-5.0 Dec 18, 2024 12:16 PM [facility] HEMOGLOBIN A1C Specimen Type: BLOOD Comment: Values [...] Sep 27, 2024 10:57 AM Reporting Lab: [facility] [phone] Performing Lab: [facility] [address] HEMOGLOBIN A1C 7.1 H 4.0-6.0 Dec 18, 2024 12:16 PM [facility] PROTHROMBIN TIME/INR Specimen Type: PLASMA No comment entered. Ordering Provider: BENIGNO KIM A Report Released Date/Time: Sep 27, 2024 10:57 AM Reporting Lab: [facility] [phone] Performing Lab: [facility] [address] .INR 0.9 0.8-1.1 .PT 10.3 s 9.4-12.5 Dec 18, 2024 12:16 PM [facility] BASIC METABOLIC PANEL+MG Specimen Type: PLASMA No comment entered. Ordering Provider: BENIGNO KIM A Report Released Date/Time: Sep 27, 2024 10:57 AM Reporting Lab: [facility] [phone] Performing Lab: [facility] [address] CREATININE 1.0 mg/dL 0.7-1.2 UREA NITROGEN 19 mg/dL 8-26 GLUCOSE 118 mg/dL H 70-100 SODIUM 139 mmol/L 136-145 POTASSIUM 4.1 mmol/L 3.5-5.1 CHLORIDE 104 mmol/L 98-107 CO2 25 mmol/L 22-29 CALCIUM 9.6 mg/dL 8.4-10.2 MAGNESIUM 2.1 mg/dL 1.6-2.6 ANION GAP 10 mmol/L 5-15 .CREAT EGFR(CKD-EPI) 80 >60 Dec 18, 2024 12:16 PM [facility] CBC & DIFF Specimen Type: BLOOD Comment: Automated Differential Performed Ordering Provider: BENIGNO KIM A Report Released Date/Time: Sep 27, 2024 10:57 AM Reporting Lab: [facility] [phone] Performing Lab: [facility] [address] WBC 9.5 4.0-11.0 RBC 5.05 4.60-6.20 HGB [...] Source Jan 10, 2025 08:57 PM 6 [facility] Jan 10, 2025 07:57 PM 7 [facility] Jan 10, 2025 05:58 PM 187.8 27 [facility] Jan 10, 2025 09:21 AM 186 27 [facility] Jan 10, 2025 09:20 AM 98 61 128/73 16 98 7 [facility] Social History: Smoking Status (Most current) and Tobacco Use (All prior to encounter date) This section includes the most current, and the historical, smoking and tobacco- related health factors from the [place] facility where the Encounter took place. Current Smoking Status This section includes the most current smoking, or tobacco-related health factor, from the [place] facility where the Encounter took place. Date/Time Current Smoking Status Comment Serina reece Nov 19, 2023 08:00 AM VA-TOBACCO FORMER USER [facility] Tobacco Use History This section includes a history of the smoking, or tobacco-related health factors, that were collected on or before the date of the Encounter. The data comes from the [place] facility where the Encounter took place. Date/Time Smoking Status/Tobacco Use Comment F mahamed Nov 19, 2023 08:00 AM VA-TOBACCO QUIT 15 YRS OR MORE [facility] Jan 28, 2023 09:45 AM VA-TOBACCO FORMER USER [facility] Jan 28, 2023 09:45 AM VA-TOBACCO QUIT 15 YRS OR MORE [facility] Oct 30, 2021 03:00 PM VA-TOBACCO FORMER USER [facility] Oct 30, 2021 03:00 PM VA-TOBACCO QUIT 5 TO < 15 YRS [facility] Aug 17, 2019 11:38 AM VA-TOBACCO FORMER USER [facility] Aug 17, 2019 11:38 AM VA-TOBACCO QUIT 5 TO < 15 YRS [facility] Jan 06, 2018 02:39 PM FORMER TOBACCO USER 7Y OR GREATE R [facility] Jan 28, 2017 12:47 PM FORMER TOBACCO USER 7Y OR GREATE R [facility] Jan 21, 2016 03:04 PM FORMER TOBACCO USER 7Y OR GREATE R [facility] Apr 02, 2015 02:05 PM FORMER TOBACCO USER 7Y OR GREATE R [facility] March 01, 2014 09:10 AM FORMER TOBACCO USER 7Y OR GREATE R [facility] Sep 18, 2013 09:13 AM CDM COPD TOBACCO NON-USER [facility] May 28, 2013 11:05 AM LIFETIME NON-TOBACCO USER [facility] May 25, 2013 12:08 PM FORMER TOBACCO USER 7Y OR GREATE R [facility] Jun 18, 2009 09:48 AM FORMER TOBACCO USER 7Y OR GREATE R [facility] Aug 24, 2008 10:10 AM FORMER TOBACCO USE >1Y <7Y [facility] Advance Directives: All historical and current Section Date Range: From patient's date of to the date document was created. This section includes ALL of a patient's completed or amended [place] Advance and Rescinded Directives. The entries below indicate that a directive exists for the patient, but an actual copy is not included with this document. The data comes from all [facility]. Date Advance Directives Provider Source March 08, 2023 ADVANCE DIRECTIVE ODILIA [facility]SON [facility] May 02, 2014 ADVANCE DIRECTIVE DISCUSSION QUEENIE SAENZ [facility] May 24, 2013 CLINICAL WARNING GALINDO STUART [facility] Sep 21, 2011 ADVANCE DIRECTIVE JORDAN ZHANG [facility] Radiology Reports: +/- 30 days [...] the Encounter. The data comes from all [place] treatment facilities. Date/Time Radiology Report Provider Source Jan 10, 2025 07:58 AM SHOULDER RIGHT 2-3 VIEWS: KEENA ROSA [id number] -1955 M Exm Date: JAN 10, 2025@07:58 Req Phys: ARMINDA KIMHECTOR Pauline Colleen Loc: OR-PACU/01-10-2025@15:42 Img Loc: MAIN X-RAY Service: [place] [address] (Case [id number] COMPLETE) SHOULDER RIGHT 2-3 VIEWS (RAD Detailed) CPT:85090 Proc Modifiers : PORTABLE EXAM, OPERATING ROOM EXAM Reason for Study: right reverse TSA Clinical History: OR 6 shoulder rotator cuff arthropathy My pager number on record is: . I confirm that the pager number/cell phone number above is correct for reporting critical results. My correct contact # for critial results is:Valerio KIM [phone] Trainees only: Enter your staff provider's info here: LAST CREATININE 1.0 (12/18/24) Report Status: Verified Date Reported: JAN 10, 2025 Date Verified: JAN 10, 2025 Assistant Credit Manager E-Sig:/ES/MIRANDA BROOKE MD Report: EXAMINATION: SHOULDER RIGHT 2-3 VIEWS 01/10/2025 7:58 AM INDICATION: right reverse TSA Impression: Right reverse TSA. Components appear well seated. Report Sign Date/Time: 01/10/2025 3:39 PM Primary Interpreting Staff: MIRANDA BROOKE MD, RADIOLOGIST (Assistant Credit Manager) /RTS MIRANDA BROOKE [facility]
--- OUTSIDE RECORDS SUMMARY | 2025-01-16 08:00 | XMS_ITS | Encounter Summary ---
Author Name [facility] [place] [facility] [place] [facility] [place] Address [address] [place] [address] Care Team Providers Care Licensed Clinical Social Worker Name Role Phone ZENY MARTIN Primary [...] PART B Oct 18, 2013 PART B [id number] [phone] Mary ROSA EORODNEY PATIENT MEDICARE (WNR) MEDICARE (M) PART A Oct 18, 2013 PART A [id number] [phone] Mary ROSA EOMIRELAD PATIENT MEDICARE (WNR) MEDICARE (M) PART A Oct 18, 2013 PART A [id number] [phone] Mary ROSA EORODNEY PATIENT Selected Encounter This section includes the information on record at [place] for the Encounter. Date/Time Encounter Type Encounter Description Reason Pro vider Source Jan 11, 2025 12:50 PM Inpatient Visit EVENT (HISTORICAL) IHE Encounter Template Text not used by [place] Plan of Treatment: Future Appointments (+ 6 [...] 20 appointments. The data comes from all [facility]. Appointment Date/Time Appointment Type Appointme nt Facility Name Jan 24, 2025 01:00 PM AMBULATORY - SURGERY [facility] Jan 25, 2025 10:00 AM AMBULATORY - MEDICINE [facility] Jan 25, 2025 11:00 AM AMBULATORY - REHAB MEDICIN E [facility] Feb 01, 2025 10:00 AM AMBULATORY - MEDICINE [facility] Feb 01, 2025 11:00 AM AMBULATORY - MEDICINE [facility] Feb 08, 2025 10:00 AM AMBULATORY - MEDICINE [facility] February 22, 2025 10:00 AM AMBULATORY - MEDICINE [facility] February 23, 2025 11:00 AM AMBULATORY - NONE [facility] February 23, 2025 11:30 AM AMBULATORY - SURGERY [facility] March 08, 2025 10:00 AM AMBULATORY - MEDICINE [facility] Apr 09, 2025 01:00 PM AMBULATORY - SURGERY [facility] Active, Pending, and Scheduled Orders This section includes a listing of several types of active, pending, and scheduled orders, including clinic medications orders, diagnostic test orders, procedure orders and consult orders; where the start date of the order is 45 days before the date of the Encounter or 45 days after the date of theEncounter. The data comes from all [facility]. Test Date/Time Test Type Test Details Facility Name Dec 11, 2024 11:04 AM Consult Order PT PHYSICA L THERAPY OUTPT ORTHO SURGERY [facility] Jan 10, 2025 12:00 AM Laboratory - Blood Bank Order TYPE & SCREEN - LAB BLOOD [facility] Jan 12, 2025 08:18 AM Consult Order [facility] Jan 22, 2025 12:00 AM Laboratory - Chemi stry Order HEMOGLOBIN A1C BLOOD SP ONCE [facility] Jan 22, 2025 12:00 AM Laboratory - Chemi stry Order BASIC METABOLIC PANEL+MG PLASMA SP [facility] February 23, 2025 11:00 AM Imaging - General Radiology Order SHOULDER RIGHT 2-3 VIEWS RIGHT [facility] Lab Results: +/- 30 days of the encounter This section includes the Chemistry and Hematology Lab Results on record with [place] for the patient. Radiology Reports and Pathology Reports are provided separately, in subsequent sections. Lab Results This section contains the Chemistry/Hematology Results that were resulted 30 days before or 30 daysafter the date of the Encounter. Date/Time Source Result Type Result - Unit Interpretation Reference Range Comment Jan 11, 2025 12:21 PM [facility] FINGERSTICK GLUCOSE Specimen Type: BLOOD Comment: Save Result Nurse Notified Ordering Provider: ANDREA WOLF Report Released Date/Time: Jan 11, 2025 12:51 PM Reporting Lab: [facility] [phone] Performing Lab: [facility] [phone] FINGERSTICK GLUCOSE 246 mg/dL H 70-100 Jan 11, 2025 07:37 AM [facility] CBC Specimen Type: BLOOD No comment entered. Ordering Provider: ANDREA WOLF Report Released Date/Time: Jan 10, 2025 02:40 PM Reporting Lab: [facility] [phone] Performing Lab: [facility] [phone] WBC 9.7 4.0-11.0 RBC 4.50 L 4.60-6.20 HGB 12.9 g/dL L 13.5-17.9 HCT 42.3 41.0-54.0 MCV 94.0 fL 80.0-100.0 MCH 28.7 pg 27.0-33.0 MCHC 30.5 g/dL L 32.0-37.5 PLT 174 150-400 MPV 11.5 fL 9.1-13.0 RDW 13.3 11.5-14.5 Jan 11, 2025 07:37 AM [facility] BASIC METABOLIC PANEL+MG Specimen Type: PLASMA No comment entered. Ordering Provider: ANDREA WOFL Report Released Date/Time: Jan 10, 2025 02:40 PM Reporting Lab: [facility] [phone] Performing Lab: [facility] [address] CREATININE 1.0 mg/dL 0.7-1.2 UREA NITROGEN 21 mg/dL 8-26 GLUCOSE 203 mg/dL H 70-100 SODIUM 136 mmol/L 136-145 POTASSIUM 4.1 mmol/L 3.5-5.1 CHLORIDE 102 mmol/L 98-107 CO2 23 mmol/L 22-29 CALCIUM 8.8 mg/dL 8.4-10.2 MAGNESIUM 2.0 mg/dL 1.6-2.6 ANION GAP 11 mmol/L 5-15 .CREAT EGFR(CKD-EPI) 80 >60 Jan 11, 2025 06:10 AM [facility] FINGERSTICK GLUCOSE Specimen Type: BLOOD Comment: Save Result Nurse Notified Ordering Provider: Lilli CHRISTENSEN Report Released Date/Time: Jan 11, 2025 07:41 AM Reporting Lab: [facility] [phone] Performing Lab: [facility] [phone] FINGERSTICK GLUCOSE 220 mg/dL H 70-100 Jan 10, 2025 08:11 PM [facility] FINGERSTICK GLUCOSE Specimen Type: BLOOD Comment: Save Result Nurse Notified Ordering Provider: Lilli CHRISTENSEN Report Released Date/Time: Jan 10, 2025 08:36 PM Reporting Lab: [facility] [phone] Performing Lab: [facility] [phone] FINGERSTICK GLUCOSE 239 mg/dL H 70-100 Jan 10, 2025 04:30 PM [facility] FINGERSTICK GLUCOSE Specimen Type: BLOOD Comment: Save Result Nurse Notified Ordering Provider: Lilli CHRISTENSEN Report Released Date/Time: Jan 10, 2025 05:34 PM Reporting Lab: [facility] [phone] Performing Lab: [facility] [phone] FINGERSTICK GLUCOSE 190 mg/dL H 70-100 Jan 10, 2025 02:40 PM [facility] FINGERSTICK GLUCOSE Specimen Type: BLOOD Comment: Save Result Nurse Notified Ordering Provider: BENIGNO KIM Report Released Date/Time: Jan 10, 2025 03:01 PM Reporting Lab: [facility] [phone] Performing Lab: [facility] [address] FINGERSTICK GLUCOSE 183 mg/dL H 70-100 Jan 10, 2025 08:35 AM [facility] ACT PART THROMBO TIME Specimen Type: PLASMA Comment: ~Draw on admission. Call IV team to draw on admission. Ordering Provider: BENIGNO KIM A Report Released Date/Time: Jan 10, 2025 08:01 AM Reporting Lab: [facility] [phone] Performing Lab: [facility] [phone] APTT 31.4 s 25.1-36.5 Jan 10, 2025 08:35 AM [facility] PROTHROMBIN TIME/INR Specimen Type: PLASMA Comment: ~Draw on admission. Call IV team to draw on admission. Ordering Provider: BENIGNO KIM A Report Released Date/Time: Jan 10, 2025 08:01 AM Reporting Lab: [facility] [phone] Performing Lab: [facility] [phone] .INR 0.9 0.8-1.1 .PT 10.9 s 9.4-12.5 Jan 10, 2025 08:35 AM [facility] CBC Specimen Type: BLOOD No comment entered. Ordering Provider: BENIGNO KIM A Report Released Date/Time: Jan 10, 2025 08:01 AM Reporting Lab: [facility] [phone] Performing Lab: [facility] [phone] WBC 6.6 4.0-11.0 RBC 5.00 4.60-6.20 HGB 14.5 g/dL 13.5-17.9 HCT 46.1 41.0-54.0 MCV 92.2 fL 80.0-100.0 MCH 29.0 pg 27.0-33.0 MCHC 31.5 g/dL L 32.0-37.5 PLT 172 150-400 MPV 10.9 fL 9.1-13.0 RDW 13.7 11.5-14.5 Jan 10, 2025 08:35 AM [facility] FINGERSTICK GLUCOSE Specimen Type: BLOOD Comment: Save Result Ordering Provider: BENIGNO KIM A Report Released Date/Time: Jan 10, 2025 10:31 AM Reporting Lab: [facility] [phone] Performing Lab: [facility] [phone] FINGERSTICK GLUCOSE 155 mg/dL H 70-100 Jan 10, 2025 08:35 AM [facility] BASIC METABOLIC PANEL+MG Specimen Type: PLASMA No comment entered. Ordering Provider: BENIGNO KIM A Report Released Date/Time: Jan 10, 2025 08:01 AM Reporting Lab: [facility] [phone] Performing Lab: [facility] [phone] CREATININE 0.9 mg/dL 0.7-1.2 UREA NITROGEN 19 mg/dL 8-26 GLUCOSE 151 mg/dL H 70-100 SODIUM 138 mmol/L 136-145 POTASSIUM 3.9 mmol/L 3.5-5.1 CHLORIDE 106 mmol/L 98-107 CO2 23 mmol/L 22-29 CALCIUM 9.3 mg/dL 8.4-10.2 MAGNESIUM 2.0 mg/dL 1.6-2.6 ANION GAP 9 mmol/L 5-15 .CREAT EGFR(CKD-EPI) >90 >60 Dec 18, 2024 12:16 PM [facility] ALBUMIN Specimen Type: PLASMA No comment entered. Ordering Provider: BENIGNO KIM A Report Released Date/Time: Sep 27, 2024 10:57 AM Reporting Lab: [facility] [phone] Performing Lab: [facility] [phone] ALBUMIN 4.4 g/dL 3.5-5.0 Dec 18, 2024 12:16 PM [facility] HEMOGLOBIN A1C Specimen Type: BLOOD Comment: Values [...] Sep 27, 2024 10:57 AM Reporting Lab: [facility] [phone] Performing Lab: [facility] [phone] HEMOGLOBIN A1C 7.1 H 4.0-6.0 Dec 18, 2024 12:16 PM [facility] PROTHROMBIN TIME/INR Specimen Type: PLASMA No comment entered. Ordering Provider: BENIGNO KIM A Report Released Date/Time: Sep 27, 2024 10:57 AM Reporting Lab: [facility] [phone] Performing Lab: [facility] [address] .INR 0.9 0.8-1.1 .PT 10.3 s 9.4-12.5 Dec 18, 2024 12:16 PM [facility] BASIC METABOLIC PANEL+MG Specimen Type: PLASMA No comment entered. Ordering Provider: BENIGNO KIM A Report Released Date/Time: Sep 27, 2024 10:57 AM Reporting Lab: [facility] [phone] Performing Lab: [facility] [phone] CREATININE 1.0 mg/dL 0.7-1.2 UREA NITROGEN 19 mg/dL 8-26 GLUCOSE 118 mg/dL H 70-100 SODIUM 139 mmol/L 136-145 POTASSIUM 4.1 mmol/L 3.5-5.1 CHLORIDE 104 mmol/L 98-107 CO2 25 mmol/L 22-29 CALCIUM 9.6 mg/dL 8.4-10.2 MAGNESIUM 2.1 mg/dL 1.6-2.6 ANION GAP 10 mmol/L 5-15 .CREAT EGFR(CKD-EPI) 80 >60 Dec 18, 2024 12:16 PM [facility] CBC & DIFF Specimen Type: BLOOD Comment: Automated Differential Performed Ordering Provider: BENIGNO KIM A Report Released Date/Time: Sep 27, 2024 10:57 AM Reporting Lab: [facility] [phone] Performing Lab: [facility] [phone] WBC 9.5 4.0-11.0 RBC 5.05 4.60-6.20 HGB [...] Source Jan 11, 2025 09:30 AM 5 [facility] Jan 11, 2025 08:35 AM 8 [facility] Jan 11, 2025 08:31 AM 97.5 50 122/69 16 100 8 [facility] Jan 11, 2025 04:27 AM 6 [facility] Jan 11, 2025 12:28 AM 9 [facility] Social History: Smoking Status (Most current) and Tobacco Use (All prior to encounter date) This section includes the most current, and the historical, smoking and tobacco- related health factors from the [place] facility where the Encounter took place. Current Smoking Status This section includes the most current smoking, or tobacco-related health factor, from the [place] facility where the Encounter took place. Date/Time Current Smoking Status Comment Serina reece Nov 19, 2023 08:00 AM VA-TOBACCO FORMER USER [facility] Tobacco Use History This section includes a history of the smoking, or tobacco-related health factors, that were collected on or before the date of the Encounter. The data comes from the [place] facility where the Encounter took place. Date/Time Smoking Status/Tobacco Use Comment F mahamed Nov 19, 2023 08:00 AM VA-TOBACCO QUIT 15 YRS OR MORE [facility] Jan 28, 2023 09:45 AM VA-TOBACCO FORMER USER [facility] Jan 28, 2023 09:45 AM VA-TOBACCO QUIT 15 YRS OR MORE [facility] Oct 30, 2021 03:00 PM VA-TOBACCO FORMER USER [facility] Oct 30, 2021 03:00 PM VA-TOBACCO QUIT 5 TO < 15 YRS [facility] Aug 17, 2019 11:38 AM VA-TOBACCO FORMER USER [facility] Aug 17, 2019 11:38 AM VA-TOBACCO QUIT 5 TO < 15 YRS [facility] Jan 06, 2018 02:39 PM FORMER TOBACCO USER 7Y OR GREATE R [facility] Jan 28, 2017 12:47 PM FORMER TOBACCO USER 7Y OR GREATE R [facility] Jan 21, 2016 03:04 PM FORMER TOBACCO USER 7Y OR GREATE R [facility] Apr 02, 2015 02:05 PM FORMER TOBACCO USER 7Y OR GREATE R [facility] March 01, 2014 09:10 AM FORMER TOBACCO USER 7Y OR GREATE R [facility] Sep 18, 2013 09:13 AM CDM COPD TOBACCO NON-USER [facility] May 28, 2013 11:05 AM LIFETIME NON-TOBACCO USER [facility] May 25, 2013 12:08 PM FORMER TOBACCO USER 7Y OR GREATE R [facility] Jun 18, 2009 09:48 AM FORMER TOBACCO USER 7Y OR GREATE R [facility] Aug 24, 2008 10:10 AM FORMER TOBACCO USE >1Y <7Y [facility] Advance Directives: All historical and current Section Date Range: From patient's date of to the date document was created. This section includes ALL of a patient's completed or amended [place] Advance and Rescinded Directives. The entries below indicate that a directive exists for the patient, but an actual copy is not included with this document. The data comes from all [facility]. Date Advance Directives Provider Source March 08, 2023 ADVANCE DIRECTIVE ODILIA CHRISTIANSON [facility] May 02, 2014 ADVANCE DIRECTIVE DISCUSSION QUEENIE SAENZ [facility] May 24, 2013 CLINICAL WARNING GALINDO STUART [facility] Sep 21, 2011 ADVANCE DIRECTIVE JORDAN ZHANG [facility] Radiology Reports: +/- 30 days of the [...] the Encounter. The data comes from all [place] treatment facilities. Date/Time Radiology Report Provider Source Jan 10, 2025 07:58 AM SHOULDER RIGHT 2-3 VIEWS: KEENA ROSA [id number] -[id number] M Exm Date: JAN 10, 2025@07:58 Req Phys: SHELLI KIM Colleen Loc: OR-PACU/01-10-2025@15:42 Img Loc: MAIN X-RAY Service: [place] [address] (Case [id number] COMPLETE) SHOULDER RIGHT 2-3 VIEWS (RAD Detailed) CPT:52868 Proc Modifiers : PORTABLE EXAM, OPERATING ROOM EXAM Reason for Study: right reverse TSA Clinical History: OR 6 shoulder rotator cuff arthropathy My pager number on record is: . I confirm that the pager number/cell phone number above is correct for reporting critical results. My correct contact # for critial results is:Valerio KIM [phone] Trainees only: Enter your staff provider's info here: LAST CREATININE 1.0 (12/18/24) Report Status: Verified Date Reported: JAN 10, 2025 Date Verified: JAN 10, 2025 Tax Compliance Representative E-Sig:/ES/MIRANDA BROOKE MD Report: EXAMINATION: SHOULDER RIGHT 2-3 VIEWS 01/10/2025 7:58 AM INDICATION: right reverse TSA Impression: Right reverse TSA. Components appear well seated. Report Sign Date/Time: 01/10/2025 3:39 PM Primary Interpreting Staff: MIRANDA BROOKE MD, RADIOLOGIST (Tax Compliance Representative) /RTS MIRANDA BROOKE [facility]
--- OUTSIDE RECORDS SUMMARY | 2025-01-16 08:00 | XMS_ITS ---
[facility]CS Encounter Summary Created on: January 16, 2025 MOEKEENA : 1955 Sex: Male Author Name [facility] [place] [facility] [place] Address [address] [place] [address] Care Team Providers Care Occupational Health Physiotherapist Name Role Phone ZENY MARTIN Primary Care [...] PART B Oct 18, 2013 PART B [id number] [phone] Mary ROSA PATIENT MEDICARE (WNR) MEDICARE (M) PART A Oct 18, 2013 PART A [id number] [phone] Mary ROSA EORODNEY PATIENT MEDICARE (WNR) MEDICARE (M) PART A Oct 18, 2013 PART A [id number] [phone] Mary ROSA PATIENT Selected Encounter This section includes the information on [place] at [place] for the [place]counter. Date/Time Encounter Type Encounter Description Reason Pro vider Source Jan 10, 2025 07:59 AM Inpatient Visit HOSPITALIZATION SHELLI KIM Encounter Template Text not used by [facility] Plan of Treatment: Future Appointments (+ 6 months) and Future Tests (+/- 45 days) The Plan of Treatment section includes future care activities for the patient from all [facility]. This section includes future appointments and future orders which are active, pending or scheduled. Future Appointments This section includes appointments that were scheduled to occur 6 months from the date of the Encounter, up to a maximum of 20 appointments. The data comes from all [facility]. Appointment Date/Time Appointment Type Appointme nt Facility Name Jan 24, 2025 01:00 PM AMBULATORY - SURGERY [facility] Jan 25, 2025 10:00 AM AMBULATORY - MEDICINE [facility] Jan 25, 2025 11:00 AM AMBULATORY - REHAB MEDICIN E [facility] Feb 01, 2025 10:00 AM AMBULATORY - MEDICINE [facility] Feb 01, 2025 11:00 AM AMBULATORY - MEDICINE [facility] Feb 08, 2025 10:00 AM AMBULATORY - MEDICINE [facility] February 22, 2025 10:00 AM AMBULATORY - MEDICINE [facility] February 23, 2025 11:00 AM AMBULATORY - NONE [facility] February 23, 2025 11:30 AM AMBULATORY - SURGERY [facility] March 08, 2025 10:00 AM AMBULATORY - MEDICINE [facility] Apr 09, 2025 01:00 PM AMBULATORY - SURGERY [facility] Active, Pending, and Scheduled Orders This section includes a listing of several types of active, pending, and scheduled orders, including clinic medications orders, diagnostic test orders, procedure orders and consult orders; where the start date of the order is 45 days before the date of the Encounter or 45 days after the date of theEncounter. The data comes from all [facility]. 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's [facility] Jan 10, 2025 12:00 AM Laboratory - Blood Bank Order TYPE & SCREEN - LAB BLOOD [facility] Jan 12, 2025 08:18 AM Consult Order [facility] Jan 22, 2025 12:00 AM Laboratory - Chemi stry Order HEMOGLOBIN A1C BLOOD SP ONCE [facility] Jan 22, 2025 12:00 AM Laboratory - Chemi stry Order BASIC METABOLIC PANEL+MG PLASMA SP [facility] February 23, 2025 11:00 AM Imaging - General Radiology Order SHOULDER RIGHT 2-3 VIEWS RIGHT [facility] Lab Results: +/- 30 days of the encounter This section includes the Chemistry and Hematology Lab Results on record with [place] for the patient. Radiology Reports and Pathology Reports are provided separately, in subsequent sections. Lab Results This section contains the Chemistry/Hematology Results that were resulted 30 days before or 30 daysafter the date of the Encounter. Date/Time Source Result Type Result - Unit Interpretation Reference Range Comment Jan 11, 2025 12:21 PM [facility] FINGERSTICK GLUCOSE Specimen Type: BLOOD Comment: Save Result Nurse Notified Ordering Provider: ANDREA WOLF Report Released Date/Time: Jan 11, 2025 12:51 PM Reporting Lab: [facility] [phone] Performing Lab: [facility] [phone] FINGERSTICK GLUCOSE 246 mg/dL H 70-100 Jan 11, 2025 07:37 AM [facility] CBC Specimen Type: BLOOD No comment entered. Ordering Provider: ANDREA WOLF Report Released Date/Time: Jan 10, 2025 02:40 PM Reporting Lab: [facility] [phone] Performing Lab: [facility] [phone] WBC 9.7 4.0-11.0 RBC 4.50 L 4.60-6.20 HGB 12.9 g/dL L 13.5-17.9 HCT 42.3 41.0-54.0 MCV 94.0 fL 80.0-100.0 MCH 28.7 pg 27.0-33.0 MCHC 30.5 g/dL L 32.0-37.5 PLT 174 150-400 MPV 11.5 fL 9.1-13.0 RDW 13.3 11.5-14.5 Jan 11, 2025 07:37 AM [facility] BASIC METABOLIC PANEL+MG Specimen Type: PLASMA No comment entered. Ordering Provider: ANDREA WOLF Report Released Date/Time: Jan 10, 2025 02:40 PM Reporting Lab: [facility] [phone] Performing Lab: [facility] [phone] CREATININE 1.0 mg/dL 0.7-1.2 UREA NITROGEN 21 mg/dL 8-26 GLUCOSE 203 mg/dL H 70-100 SODIUM 136 mmol/L 136-145 POTASSIUM 4.1 mmol/L 3.5-5.1 CHLORIDE 102 mmol/L 98-107 CO2 23 mmol/L 22-29 CALCIUM 8.8 mg/dL 8.4-10.2 MAGNESIUM 2.0 mg/dL 1.6-2.6 ANION GAP 11 mmol/L 5-15 .CREAT EGFR(CKD-EPI) 80 >60 Jan 11, 2025 06:10 AM [facility] FINGERSTICK GLUCOSE Specimen Type: BLOOD Comment: Save Result Nurse Notified Ordering Provider: Lilli CHRISTENSEN Report Released Date/Time: Jan 11, 2025 07:41 AM Reporting Lab: [facility] [phone] Performing Lab: [facility] [phone] FINGERSTICK GLUCOSE 220 mg/dL H 70-100 Jan 10, 2025 08:11 PM [facility] FINGERSTICK GLUCOSE Specimen Type: BLOOD Comment: Save Result Nurse Notified Ordering Provider: Lilli CHRISTENSEN Report Released Date/Time: Jan 10, 2025 08:36 PM Reporting Lab: [facility] [phone] Performing Lab: [facility] [phone] FINGERSTICK GLUCOSE 239 mg/dL H 70-100 Jan 10, 2025 04:30 PM [facility] FINGERSTICK GLUCOSE Specimen Type: BLOOD Comment: Save Result Nurse Notified Ordering Provider: Lilli CHRISTENSEN Report Released Date/Time: Jan 10, 2025 05:34 PM Reporting Lab: [facility] [phone] Performing Lab: [facility] [phone] FINGERSTICK GLUCOSE 190 mg/dL H 70-100 Jan 10, 2025 02:40 PM [facility] FINGERSTICK GLUCOSE Specimen Type: BLOOD Comment: Save Result Nurse Notified Ordering Provider: BENIGNO KIM Report Released Date/Time: Jan 10, 2025 03:01 PM Reporting Lab: [facility] [phone] Performing Lab: [facility] [phone] FINGERSTICK GLUCOSE 183 mg/dL H 70-100 Jan 10, 2025 08:35 AM [facility] ACT PART THROMBO TIME Specimen Type: PLASMA Comment: ~Draw on admission. Call IV team to draw on admission. Ordering Provider: BENIGNO KIM Report Released Date/Time: Jan 10, 2025 08:01 AM Reporting Lab: [facility] [phone] Performing Lab: [facility] [address] APTT 31.4 s 25.1-36.5 Jan 10, 2025 08:35 AM [facility] PROTHROMBIN TIME/INR Specimen Type: PLASMA Comment: ~Draw on admission. Call IV team to draw on admission. Ordering Provider: BENIGNO KIM Report Released Date/Time: Jan 10, 2025 08:01 AM Reporting Lab: [facility] [phone] Performing Lab: [facility] [phone] .INR 0.9 0.8-1.1 .PT 10.9 s 9.4-12.5 Jan 10, 2025 08:35 AM [facility] CBC Specimen Type: BLOOD No comment entered. Ordering Provider: BENIGNO KIM A Report Released Date/Time: Jan 10, 2025 08:01 AM Reporting Lab: [facility] [phone] Performing Lab: [facility] [phone] WBC 6.6 4.0-11.0 RBC 5.00 4.60-6.20 HGB 14.5 g/dL 13.5-17.9 HCT 46.1 41.0-54.0 MCV 92.2 fL 80.0-100.0 MCH 29.0 pg 27.0-33.0 MCHC 31.5 g/dL L 32.0-37.5 PLT 172 150-400 MPV 10.9 fL 9.1-13.0 RDW 13.7 11.5-14.5 Jan 10, 2025 08:35 AM [facility] FINGERSTICK GLUCOSE Specimen Type: BLOOD Comment: Save Result Ordering Provider: BENIGNO KIM A Report Released Date/Time: Jan 10, 2025 10:31 AM Reporting Lab: [facility] [phone] Performing Lab: [facility] [address] FINGERSTICK GLUCOSE 155 mg/dL H 70-100 Jan 10, 2025 08:35 AM [facility] BASIC METABOLIC PANEL+MG Specimen Type: PLASMA No comment entered. Ordering Provider: BENIGNO KIM A Report Released Date/Time: Jan 10, 2025 08:01 AM Reporting Lab: [facility] [phone] Performing Lab: [facility] [phone] CREATININE 0.9 mg/dL 0.7-1.2 UREA NITROGEN 19 mg/dL 8-26 GLUCOSE 151 mg/dL H 70-100 SODIUM 138 mmol/L 136-145 POTASSIUM 3.9 mmol/L 3.5-5.1 CHLORIDE 106 mmol/L 98-107 CO2 23 mmol/L 22-29 CALCIUM 9.3 mg/dL 8.4-10.2 MAGNESIUM 2.0 mg/dL 1.6-2.6 ANION GAP 9 mmol/L 5-15 .CREAT EGFR(CKD-EPI) >90 >60 Dec 18, 2024 12:16 PM [facility] ALBUMIN Specimen Type: PLASMA No comment entered. Ordering Provider: BENIGNO KIM A Report Released Date/Time: Sep 27, 2024 10:57 AM Reporting Lab: [facility] [phone] Performing Lab: [facility] [address] ALBUMIN 4.4 g/dL 3.5-5.0 Dec 18, 2024 12:16 PM [facility] HEMOGLOBIN A1C Specimen Type: BLOOD Comment: [...] Sep 27, 2024 10:57 AM Reporting Lab: [facility] [phone] Performing Lab: [facility] [phone] HEMOGLOBIN A1C 7.1 H 4.0-6.0 Dec 18, 2024 12:16 PM [facility] PROTHROMBIN TIME/INR Specimen Type: PLASMA No comment entered. Ordering Provider: BENIGNO KIM A Report Released Date/Time: Sep 27, 2024 10:57 AM Reporting Lab: [facility] [phone] Performing Lab: [facility] [address] .INR 0.9 0.8-1.1 .PT 10.3 s 9.4-12.5 Dec 18, 2024 12:16 PM [facility] BASIC METABOLIC PANEL+MG Specimen Type: PLASMA No comment entered. Ordering Provider: BENIGNO KIM A Report Released Date/Time: Sep 27, 2024 10:57 AM Reporting Lab: [facility] [phone] Performing Lab: [facility] [phone] CREATININE 1.0 mg/dL 0.7-1.2 UREA NITROGEN 19 mg/dL 8-26 GLUCOSE 118 mg/dL H 70-100 SODIUM 139 mmol/L 136-145 POTASSIUM 4.1 mmol/L 3.5-5.1 CHLORIDE 104 mmol/L 98-107 CO2 25 mmol/L 22-29 CALCIUM 9.6 mg/dL 8.4-10.2 MAGNESIUM 2.1 mg/dL 1.6-2.6 ANION GAP 10 mmol/L 5-15 .CREAT EGFR(CKD-EPI) 80 >60 Dec 18, 2024 12:16 PM [facility] CBC & DIFF Specimen Type: BLOOD Comment: Automated Differential Performed Ordering Provider: BENIGNO KIM A Report Released Date/Time: Sep 27, 2024 10:57 AM Reporting Lab: [facility] [phone] Performing Lab: [facility] [address] WBC 9.5 4.0-11.0 RBC 5.05 4.60-6.20 HGB [...] Source Jan 10, 2025 08:57 PM 6 [facility] Jan 10, 2025 07:57 PM 7 [facility] Jan 10, 2025 05:58 PM 187.8 27 [facility] Jan 10, 2025 09:21 AM 186 27 [facility] Jan 10, 2025 09:20 AM 98 61 128/73 16 98 7 [facility] Social History: Smoking Status (Most current) and Tobacco Use (All prior to encounter date) This section includes the most current, and the historical, smoking and tobacco- related health factors from the [place] facility where the Encounter took place. Current Smoking Status This section includes the most current smoking, or tobacco-related health factor, from the [place] facility where the Encounter took place. 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 The data comes from the [place] facility where the Encounter took place. Date/Time [...] ALL of a patient's completed or amended [place] Advance and Rescinded Directives. The entries below indicate that a directive exists for the patient, but an actual copy is not included with this document. The data comes from all [facility]. Date Advance Directives Provider Source March 08, 2023 ADVANCE DIRECTIVE ODILIA CHRISTIANSON [facility] May 02, 2014 ADVANCE DIRECTIVE DISCUSSION QUEENIE SAENZ [facility] May 24, 2013 CLINICAL WARNING GALINDO STUART [facility] Sep 21, 2011 ADVANCE DIRECTIVE JORDAN ZHANG [facility] [place] Radiology Reports: +/- 30 days of the [...] the Encounter. The data comes from all [place] treatment facilities. Date/Time Radiology Report Provider Source Jan 10, 2025 07:58 AM SHOULDER RIGHT 2-3 VIEWS: KEENA ROSA [id number] -1955 M Exm Date: JAN 10, 2025@07:58 Req Phys: ARMINDA KIMHECTOR Pauline Colleen Loc: OR-PACU/01-10-2025@15:42 Img Loc: MAIN X-RAY Service: [place] [address] (Case [id number] COMPLETE) SHOULDER RIGHT 2-3 VIEWS (RAD Detailed) CPT:72375 Proc Modifiers : PORTABLE EXAM, OPERATING ROOM EXAM Reason for Study: right reverse TSA Clinical History: OR 6 shoulder rotator cuff arthropathy My pager number on record is: . I confirm that the pager number/cell phone number above is correct for reporting critical results. My correct contact # for critial results is:Valerio KIM [phone] Trainees only: Enter your staff provider's info here: LAST CREATININE 1.0 (12/18/24) Report Status: Verified Date Reported: JAN 10, 2025 Date Verified: JAN 10, 2025 [employer] E-Sig:/ES/MIRANDA BROOKE MD Report: EXAMINATION: SHOULDER RIGHT 2-3 VIEWS 01/10/2025 7:58 AM INDICATION: right reverse TSA Impression: Right reverse TSA. Components appear well seated. Report Sign Date/Time: 01/10/2025 3:39 PM Primary Interpreting Staff: MIRANDA BROOKE MD, RADIOLOGIST (Metal Framer) /RTS MIRANDA BROOKE [facility]
--- OUTSIDE RECORDS SUMMARY | 2025-01-16 08:01 | XMS_ITS | Encounter Summary ---
Author Name [facility] [facility] Address [address] [place] [address] Care Team Providers Care Post Framer Name Role Phone ZENY MARTIN Primary Care [...] PART A Oct 18, 2013 PART A [id number] [phone] Mary ROSA PATIENT MEDICARE (WNR) MEDICARE (M) PART B Oct 18, 2013 PART B [id number] [phone] Mary ROSA PATIENT MEDICARE (WNR) MEDICARE (M) PART A Oct 18, 2013 PART A [id number] Mary ROSA PATIENT Selected Encounter This section includes the information on record at [place] for the Encounter. Date/Time Encounter Type Encounter Description Reason Provider Source Sep 18, 2024 02:00 PM OFFICE O/P EST LOW 20 MIN ORTHO/JOINT SURG ICD-10-CM M25.511 Pain in right shoulder EDWIGE ACUNA MD E Encounter Template Text not used by [place] Assessments - Encounter Diagnoses This section includes the primary and secondary diagnoses documented for the Encounter. Date/Time Primary/Secondary Diagnosis Diagnosis Name Provider Source Sep 18, 2024 02:43 PM PRIMARY Pain in right shoulder ADALGISA LOPEZ [facility] Plan of Treatment: Future Appointments (+ 6 months) and Future Tests (+/- 45 days) The Plan of Treatment section includes future care activities for the [facility] This section includes future appointments and future orders which are active, pending or scheduled. Future Appointments This section includes appointments that were scheduled to occur 6 months from the date of the Encounter, up to a maximum of 20 appointments. The data comes from all [place] treatment [facility]. Appointment Date/Time Appointment Type Appointme nt Facility Name Sep 19, 2024 10:30 AM AMBULATORY - SURGERY [facility] Sep 22, 2024 02:40 PM AMBULATORY - SURGERY [facility] Sep 22, 2024 03:00 PM AMBULATORY - SURGERY [facility] Sep 25, 2024 11:15 AM AMBULATORY - SURGERY [facility] Sep 25, 2024 12:15 PM AMBULATORY - MEDICINE [facility] Sep 25, 2024 01:00 PM AMBULATORY - MEDICINE [facility] Sep 25, 2024 02:00 PM AMBULATORY - MEDICINE [facility] Sep 25, 2024 02:15 PM AMBULATORY - MEDICINE [facility] Oct 05, 2024 10:00 AM AMBULATORY - MEDICINE [facility] Nov 02, 2024 10:00 AM AMBULATORY - MEDICINE [facility] Nov 02, 2024 11:15 AM AMBULATORY - NONE [facility] Nov 15, 2024 01:30 PM AMBULATORY - NONE [facility] Nov 30, 2024 10:00 AM AMBULATORY - MEDICINE [facility] Dec 07, 2024 08:45 AM AMBULATORY - NONE [facility] Dec 14, 2024 10:00 AM AMBULATORY - MEDICINE [facility] Dec 18, 2024 07:00 AM AMBULATORY - NONE [facility] Dec 18, 2024 01:00 PM AMBULATORY - NONE [facility] Dec 18, 2024 01:15 PM AMBULATORY - MEDICINE [facility] Dec 18, 2024 01:45 PM [facility] Dec 18, 2024 02:00 PM AMBULATORY - NONE [facility] Active, Pending, and Scheduled Orders This section includes a listing of several types of active, pending, and scheduled orders, including clinic medications orders, diagnostic test orders, procedure orders and consult orders; where the start date of the order is 45 days before the date of the Encounter or 45 days after the date of theEncounter. The data comes from all [place] treatment facilities. Test Date/Time Test Type Test Details Facility Name Sep 18, 2024 12:00 AM Laboratory - Blood Bank Order TYPE & SCREEN - LAB BLOOD [facility] Sep 27, 2024 12:00 AM Laboratory - Blood Bank Order TYPE & SCREEN - LAB BLOOD [facility] Lab Results: +/- 30 days of the encounter This section includes the Chemistry and Hematology Lab Results on record with [place] for the patient. Radiology Reports and Pathology Reports are provided separately, in subsequent sections. Lab Results This section contains the Chemistry/Hematology Results that were resulted 30 days before or 30 daysafter the date of the Encounter. Date/Time Source Result Type Result - Unit Interpretation Reference Range Comment Sep 25, 2024 02:00 PM [facility] ALBUMIN/CREATININE RATIO URINE Specimen Type: URINE No comment entered. Ordering Provider: KRISTEN BARRETO Report Released Date/Time: Sep 25, 2024 01:52 PM Reporting Lab: [facility] [id number] Performing Lab: [facility] [phone] CREATININE,UR RANDOM 46.1 mg/dL L 58.0-161.0 ALB/CREAT RATIO,UR 19.1 mg/g{creat} <29.9 ALBUMIN,UR 8.8 mg/L <29.9 Sep 25, 2024 11:31 AM [facility] HEMOGLOBIN A1C Specimen Type: BLOOD [...] Mar 27, 2024 01:40 PM Reporting Lab: [facility] [phone] Performing Lab: [facility] [id number] HEMOGLOBIN A1C 7.4 H 4.0-6.0 Sep 25, 2024 11:31 AM [facility] BASIC METABOLIC PANEL+MG Specimen Type: PLASMA No comment entered. Ordering Provider: KRISTEN BARRETO Report Released Date/Time: Mar 27, 2024 01:40 PM Reporting Lab: [facility] [phone] Performing Lab: [facility] [phone] CREATININE 1.0 mg/dL 0.7-1.2 UREA NITROGEN 22 mg/dL 8-26 GLUCOSE 171 mg/dL H 70-100 SODIUM 140 mmol/L 136-145 POTASSIUM 3.9 mmol/L 3.5-5.1 CHLORIDE 107 mmol/L 98-107 CO2 25 mmol/L 22-29 CALCIUM 9.7 mg/dL 8.4-10.2 MAGNESIUM 2.1 mg/dL 1.6-2.6 ANION GAP 8 mmol/L 5-15 .CREAT EGFR(CKD-EPI) 80 >60 Sep 18, 2024 02:59 PM [facility] PROTHROMBIN TIME/INR Specimen Type: PLASMA No comment entered. Ordering Provider: ADALGISA LOPEZ Report Released Date/Time: Sep 18, 2024 02:19 PM Reporting Lab: [facility] [phone] Performing Lab: [facility] [phone] .INR 0.9 0.8-1.1 .PT 11.1 s 9.4-12.5 Sep 18, 2024 02:59 PM [facility] ALBUMIN Specimen Type: PLASMA No comment entered. Ordering Provider: ADALGISA LOPEZ Report Released Date/Time: Sep 18, 2024 02:19 PM Reporting Lab: [facility] [phone] Performing Lab: [facility] [phone] ALBUMIN 4.7 g/dL 3.5-5.0 Sep 18, 2024 02:59 PM [facility] BASIC METABOLIC PANEL+MG Specimen Type: PLASMA No comment entered. Ordering Provider: ADALGISA LOPEZ Report Released Date/Time: Sep 18, 2024 02:19 PM Reporting Lab: [facility] [phone] Performing Lab: [facility] [phone] CREATININE 1.1 mg/dL 0.7-1.2 UREA NITROGEN 14 mg/dL 8-26 GLUCOSE 139 mg/dL H 70-100 SODIUM 141 mmol/L 136-145 POTASSIUM 3.9 mmol/L 3.5-5.1 CHLORIDE 105 mmol/L 98-107 CO2 28 mmol/L 22-29 CALCIUM 9.8 mg/dL 8.4-10.2 MAGNESIUM 1.9 mg/dL 1.6-2.6 ANION GAP 8 mmol/L 5-15 .CREAT EGFR(CKD-EPI) 72 >60 Sep 18, 2024 02:59 PM [facility] HEMOGLOBIN A1C Specimen Type: BLOOD Comment: Values obtained from A1C measurements can vary. For typical A1C assays, a reported value of 7.0 could actually be between 6.7 and 7.3 if measured by a reference method. A reported value of 9.0 could actually be between 8.7 and 9.3. Ref: http://www.ngs p.org/CAPdata. asp Ordering Provider: ADALGISA LOPEZ Report Released Date/Time: Sep 18, 2024 02:19 PM Reporting Lab: [facility] [id number] Performing Lab: [facility] [address] HEMOGLOBIN A1C 7.3 H 4.0-6.0 Sep 18, 2024 02:59 PM [facility] CBC & DIFF Specimen Type: BLOOD Comment: Automated Differential Performed Ordering Provider: ADALGISA LOPEZ Report Released Date/Time: Sep 18, 2024 02:19 PM Reporting Lab: [facility] [phone] Performing Lab: [facility] [phone] WBC 8.7 4.0-11.0 RBC 5.40 4.60-6.20 HGB [...] and tobacco- related health factors from the [place] facility where the Encounter took place. Current Smoking Status This section includes the most current smoking, or tobacco-related health factor, from the [place] facility where the Encounter took place. Date/Time Current Smoking Status Comment Facil ity Nov 19, 2023 08:00 AM VA-TOBACCO FORMER USER [facility] Tobacco Use History This section includes a history of the smoking, or tobacco-related health factors, that were collected on or before the date of the Encounter. The data comes from the [place] facility where the Encounter took place. Date/Time Smoking Status/Tobacco Use Comment F acility Nov 19, 2023 08:00 AM VA-TOBACCO QUIT 15 YRS OR MORE [facility] Jan 28, 2023 09:45 AM VA-TOBACCO FORMER USER [facility] Jan 28, 2023 09:45 AM VA-TOBACCO QUIT 15 YRS OR MORE [facility] Oct 30, 2021 03:00 PM VA-TOBACCO FORMER USER [facility] Oct 30, 2021 03:00 PM VA-TOBACCO QUIT 5 TO < 15 YRS [facility] Aug 17, 2019 11:38 AM VA-TOBACCO FORMER USER [facility] Aug 17, 2019 11:38 AM VA-TOBACCO QUIT 5 TO < 15 YRS [facility] Jan 06, 2018 02:39 PM FORMER TOBACCO USER 7Y OR GREATE R [facility] Jan 28, 2017 12:47 PM FORMER TOBACCO USER 7Y OR GREATE R [facility] Jan 21, 2016 03:04 PM FORMER TOBACCO USER 7Y OR GREATE R [facility] Apr 02, 2015 02:05 PM FORMER TOBACCO USER 7Y OR GREATE R [facility] March 01, 2014 09:10 AM FORMER TOBACCO USER 7Y OR GREATE R [facility] Sep 18, 2013 09:13 AM CDM COPD TOBACCO NON-USER [facility] May 28, 2013 11:05 AM LIFETIME NON-TOBACCO USER [facility] May 25, 2013 12:08 PM FORMER TOBACCO USER 7Y OR GREATE R [facility] Jun 18, 2009 09:48 AM FORMER TOBACCO USER 7Y OR GREATE R [facility] Aug 24, 2008 10:10 AM FORMER TOBACCO USE >1Y <7Y [facility] Advance Directives: All historical and current Section Date Range: From patient's date of to the date document was created. This section includes ALL of a patient's completed or amended [place] Advance and Rescinded Directives. The entries below indicate that a directive exists for the patient, but an actual copy is not included with this document. The data comes from all [place] facilities. Date Advance Directives Provider Source March 08, 2023 ADVANCE DIRECTIVE ODILIA CHRISTIANSON [facility] May 02, 2014 ADVANCE DIRECTIVE DISCUSSION QUEENIE SAENZ [facility] May 24, 2013 CLINICAL WARNING GALINDO STUART [facility] Sep 21, 2011 ADVANCE DIRECTIVE JORDAN ZHANG [facility] Encounter Notes: All associated encounter notes This section contains the clinical notes associated to the Encounter. Date/Time Encounter Note(s) Provider Source Sep 18, 2024 02:34 PM ORTHOPEDIC SURGERY ATTENDING NOTE: LOCAL TITLE: ORTHOPEDIC CLINIC NOTE STANDARD TITLE: ORTHOPEDIC SURGERY ATTENDING NOTE DATE OF NOTE: SEP 18, 2024@14:34 ENTRY DATE: SEP 18, 2024@14:34:33 AUTHOR: AYUSH LOPEZ COSIGNER: URGENCY: STATUS: COMPLETED Outpatient Orthopedic Consult Chief Complaint: Right shoulder pain History of Present Illness: 69 year old [id number] male presenting to discuss surgical management options for his chronic right shoulder pain and known right shoulder rotator cuff arthropathy. Please refer to Contreras Truong's original consult note on 05/30/2024 for the same issue for full history. Patient last seen in clinic on 08/02/2024 for the same concern. At that time, patient stated he had failed nonoperative management and was interested in proceeding with total shoulder arthroplasty. Case was discussed with Dr. Martino at that time. Patient was sent for a CT for preoperative planning and was to follow-up today with Dr. Martino to further discuss surgical options. He is known to the orthopedic clinic status post a right total knee arthroplasty in 2022, and a left total hip arthroplasty in 2021. Patient does have multiple comorbidities including severe COPD for which he uses oxygen, diabetes with neuropathy, CAD h/o [place]. He was considered high risk for the previous surgeries No recent fevers, chills, night sweats, unintentional weight loss, GI upset, chest pain, shortness of breath, urinary symptoms. Past Medical History: Active problems - Computerized Problem List is the source for the followin. Diabetic peripheral neuropathy (SNOMED CT 722946043) 2. Sleep apnea (SNOMED CT 92843697) - iVAPS: R: 18, PS: 7-16, EPAP+14, Mirag Quatt Med 3. Severe chronic obstructive pulmonary disease (SNOMED CT 349253544) 4. Personal History of Tobacco Use - Quit 2003, Smoked x 25 years 5. Inguinial Hernia Repair 6. Benign essential hypertension (SNOMED CT 5430429) 7. Erectile dysfunction (SNOMED CT 631184590) 8. Osteoarthrosis involving the spine 9. Hyperlipidemia (SNOMED CT 43774958) 10. Polyp of colon (SNOMED CT 39101862) 11. Open Angle, Primary 12. Morbid obesity (SNOMED CT 770055629) 13. History of adenomatous polyp of colon - By 2008 colonoscopy 14. Hypothyroidism 15. Mild memory disturbance - Due to multiple medical etiologies; Normal NPT 2014 16. History of repair of umbilical hernia 17. Chronic pain following right total knee arthroplasty (SNOMED CT 542968784003 18. Hip pain 19. Iron deficiency anemia 20. Diabetes mellitus type 2 without retinopathy (SNOMED CT 8331931687748) 21. Hypokalemia 22. Obesity 23. Ventricular bigeminy 24. Acute non-ST segment elevation myocardial infarction 25. PVC - premature ventricular contraction (SNOMED CT 768960073) 26. Coronary arteriosclerosis - s/p FRED x1 to RCA (2019) 27. History of radiofrequency ablation operation for arrhythmia - - S/p LV summit PVC ablation 12/22/22 28. Exposure to potentially hazardous substance 29. Exposure to potentially hazardous substance - agent orange Allergies: LISINOPRIL (February 18, 2009) LOSARTAN (February 18, 2009) AMLODIPINE (Jun 18, 2009) DEMEROL HYDROCHLORIDE INJECTION 50 MG/ML (March 04, 2014) GABAPENTIN (Jan 23, 2016) DULOXETINE (Feb 11, 2016) Past Surgical History: MARCH 08, 2023 Proc: Right Total Knee Arthroplasty JAN 09, 2022 Proc: ercp JAN 13, 2022 Proc: left total hip arthroplasty Family History: -No known family history of bleeding or clotting disorders. No known family history of anesthetic related complications. Social History: Occupation: Retired Marital Status/Living Situation: Lives alone in [place], enjoys gardening Tobacco Use: Quit over 20 years ago Alcohol: Currently sober Illicit Substance: Review of Systems: -12 point review of systems completed with the patient and is negative except for that listed in the HPI. Physical Examination: Temp: 97.7 F [36.5 C] (05/12/2024 13:19) Pulse:59 (05/12/2024 13:19) BP: 112/75 (05/12/2024 13:19) Resp: 18 (05/12/2024 13:19) Weight: 191.5 lb [86.86 kg] (09/07/2024 12:05) Pain: 6 (05/12/2024 13:19) O2 Sat: 96% (05/12/2024 13:19) BMI: 27.5 Pleasant 69-year-old male who arrives using a walker on nasal cannula oxygen. Examination of his right shoulder does show a slight forward droop to the shoulder. He does not have any significant tenderness over the AC joint or along the bicipital groove. Active range of motion: Forward elevation 70, abduction 50, external rotation 20. He has pain at the extremes of these motions. Strength with resisted abduction 4/5, external rotation 4/5, internal rotation 5/5. Empty can is positive for weakness and pain. Belly press does reproduce some pain but is able to maintain elbow away from body. Distally CMS grossly intact Imaging: X-Ray: X-rays of the right shoulder demonstrates severe degenerative changes and high riding humeral head consistent with rotator cuff arthropathy. CT again shows these changes. Minimal glenoid bone loss. Assessment: 69 year old [id number] male well-known to the orthopedic clinic status post a right total knee arthroplasty in 2022, and a left total hip arthroplasty in 2021. Patient does have multiple comorbidities including severe COPD for which he uses oxygen, diabetes with neuropathy, CAD h/o [place]. He was considered high risk for the previous surgeries. Patient presenting with right shoulder rotator cuff arthropathy which has failed nonoperative management. Patient indicated for a right reverse total shoulder arthroplasty. Risks, benefits, alternatives to the above treatment was discussed in detail with the patient. He is frustrated with his current treatment plan and feels like the reverse total shoulder arthroplasty would be a good next step. He is understanding and accepting of risks. Plan to proceed with a right reverse total shoulder arthroplasty with Dr. Martino pending medical clearance. Plan: -Case Request placed -Service Desk Director phone call ordered -Preop labs ordered -No further imaging necessary -Follow up for med and ortho preops Patient expressed understanding is in agreement with this plan. Staff: Pietro Lopez MD PGY-5, Orthopaedic Surgery /kyle/ AYUSH LOPEZ MD RESIDENT Signed: 09/18/2024 14:43 Receipt Acknowledged By: 09/19/2024 11:00 /kyle/ MELITA Jorgensen RN, SAMUEL T [facility]
--- OUTSIDE RECORDS SUMMARY | 2025-01-16 08:01 | XMS_ITS | Encounter Summary ---
Author Name [facility] [place] [facility] [place] [facility] [place] [facility] [place] Address [address] [place] [address] Care Team Providers Care Central Office Installer Name Role Phone ZENY MARTIN Primary Care [...] PART B Oct 18, 2013 PART B [id number] Mary ROSA PATIENT MEDICARE (WNR) MEDICARE (M) PART A Oct 18, 2013 PART A [id number] [phone] Mary ROSA EORODNEY PATIENT MEDICARE (WNR) MEDICARE (M) PART A Oct 18, 2013 PART A [id number] Mary ROSA PATIENT Selected Encounter This section includes the information on record at [place] for the Encounter. Date/Time Encounter Type Encounter Description Reason Provider Source May 12, 2024 01:30 PM OFFICE O/P EST MOD 30 MIN PRIMARY CARE/MEDICINE ICD-10-CM M25.511 Pain in right shoulder ZENY MARTIN [facility] Encounter Template Text not used by [place] Assessments - Encounter Diagnoses This section includes the primary and secondary diagnoses documented for the Encounter. Date/Time Primary/Secondary Diagnosis Diagnosis Name Provider Source May 12, 2024 03:02 PM PRIMARY Pain in right shoulder ZENY MARTIN [facility] May 12, 2024 03:02 PM SECONDARY Cellulitis of left lower limb ZENY MARTIN [facility] May 12, 2024 03:02 PM SECONDARY Contact with and exposure to other hazardous substances MANINDERLICHA [facility] May 12, 2024 03:02 PM SECONDARY Pain in right wrist VERONICA,ZENY Carpenter [facility] Plan of Treatment: Future Appointments (+ 6 months) and Future Tests (+/- 45 days) The Plan of Treatment section includes future care activities for the patient from [facility] [place] [facility] This section includes future appointments and future orders which are active, pending or scheduled. Future Appointments This section includes appointments that were scheduled to occur 6 months from the date of the Encounter, up to a maximum of 20 appointments. The data comes from all [facility]. Appointment Date/Time Appointment Type Appointme nt Facility Name May 25, 2024 10:00 AM AMBULATORY [place]IC[place] [facility] May 30, 2024 01:00 PM AMBULATORY [place]GERY [place] [facility] May 30, 2024 01:45 PM AMBULATORY - NONE [place] [facility] Jun 08, 2024 10:00 AM AMBULATORY - [place]IC[place] [facility] Jun 20, 2024 07:00 AM AMBULATORY - NONE [place] [facility] Jun 21, 2024 01:00 PM AMBULATORY - SURGERY [place] [facility] Jun 21, 2024 02:15 PM AMBULATORY - NONE [place] [facility] Jun 29, 2024 07:00 AM AMBULATORY - NONE [place] [facility] Jun 29, 2024 10:00 AM AMBULATORY - [place]ICINE [place] [facility] Jul 13, 2024 10:00 AM AMBULATORY - [place]ICINE [place] [facility] Jul 27, 2024 10:00 AM AMBULATORY - [place]ICINE [place] [facility] Aug 02, 2024 03:00 PM AMBULATORY - SURGERY [place] [facility] Aug 14, 2024 01:00 PM AMBULATORY - SURGERY [place] [facility] Aug 18, 2024 02:00 PM AMBULATORY - NONE [place] [facility] Sep 07, 2024 10:00 AM AMBULATORY - [place]ICINE [place] [facility] Sep 18, 2024 02:00 PM AMBULATORY - SURGERY [facility] Sep 19, 2024 10:30 AM AMBULATORY - SURGERY [facility] Sep 22, 2024 02:40 PM AMBULATORY - SURGERY [facility] Sep 22, 2024 03:00 PM AMBULATORY - SURGERY [facility] Sep 25, 2024 11:15 AM AMBULATORY - SURGERY [facility] Vital Signs: All taken on the encounter date This section contains inpatient and outpatient Vital Signs collected on the date of the Encounter. Date/Time Temperature Pulse Blood Pressure Respiratory Rate SP02 Pain Height Weight Body Mass Index Source May 12, 2024 01:19 PM 97.7 59 112/75 18 96 6 70 196.1 28 [facility] Social History: Smoking Status (Most current) and Tobacco Use (All prior to encounter date) This section includes the most current, and the historical, smoking and tobacco- related health factors from the [place] facility where the Encounter took place. Current Smoking Status This section includes the most current smoking, or tobacco-related health factor, from the [place] facility where the Encounter took place. Date/Time Current Smoking Status Comment Facil ity Nov 19, 2023 08:00 AM VA-TOBACCO FORMER USER [facility] Tobacco Use History This section includes a history of the smoking, or tobacco-related health factors, that were collected on or before the date of the Encounter. The data comes from the [place] facility where the Encounter took place. Date/Time Smoking Status/Tobacco Use Comment F acility Nov 19, 2023 08:00 AM VA-TOBACCO QUIT 15 YRS OR MORE [facility] Jan 28, 2023 09:45 AM VA-TOBACCO FORMER USER [facility] Jan 28, 2023 09:45 AM VA-TOBACCO QUIT 15 YRS OR MORE [facility] Oct 30, 2021 03:00 PM VA-TOBACCO FORMER USER [facility] Oct 30, 2021 03:00 PM VA-TOBACCO QUIT 5 TO < 15 YRS [facility] Aug 17, 2019 11:38 AM VA-TOBACCO FORMER USER [facility] Aug 17, 2019 11:38 AM VA-TOBACCO QUIT 5 TO < 15 YRS [facility] Jan 06, 2018 02:39 PM FORMER TOBACCO USER 7Y OR GREATE R [facility] Jan 28, 2017 12:47 PM FORMER TOBACCO USER 7Y OR GREATE R [facility] Jan 21, 2016 03:04 PM FORMER TOBACCO USER 7Y OR GREATE R [facility] Apr 02, 2015 02:05 PM FORMER TOBACCO USER 7Y OR GREATE R [facility] March 01, 2014 09:10 AM FORMER TOBACCO USER 7Y OR GREATE R [facility] Sep 18, 2013 09:13 AM CDM COPD TOBACCO NON-USER [facility] May 28, 2013 11:05 AM LIFETIME NON-TOBACCO USER [facility] May 25, 2013 12:08 PM FORMER TOBACCO USER 7Y OR GREATE R [facility] Jun 18, 2009 09:48 AM FORMER TOBACCO USER 7Y OR GREATE R [facility] Aug 24, 2008 10:10 AM FORMER TOBACCO USE >1Y <7Y [facility] Advance Directives: All historical and current Section Date Range: From patient's date of to the date document was created. This section includes ALL of a patient's completed or amended [place] Advance and Rescinded Directives. The entries below indicate that a directive exists for the patient, but an actual copy is not included with this document. The data comes from all [facility]. Date Advance Directives Provider Source March 08, 2023 ADVANCE DIRECTIVE ODILIA [facility]SON [facility] May 02, 2014 ADVANCE DIRECTIVE DISCUSSION QUEENIE SAENZ [facility] May 24, 2013 CLINICAL WARNING SHEYLARGALINDO [facility] Sep 21, 2011 ADVANCE DIRECTIVE JORDAN ZHANG [facility] Radiology Reports: +/- 30 days [...] the Encounter. The data comes from all [place] treatment facilities. Date/Time Radiology Report Provider Source May 12, 2024 02:14 PM SHOULDER RIGHT 4V: KEENA ROSA [id number] -[id number] M Exm Date: MAY 12, 2024@14:14 Req Phys: ZENY MARTIN Loc: [facility] PACT JOYCE 4E (Req'g Loc) Img Loc: MAIN X-RAY Service: [place] [address] (Case [id number] COMPLETE) SHOULDER RIGHT 4V (RAD Detailed) CPT:50167 Proc Modifiers : RIGHT Reason for Study: r/o djd Clinical History: [place] IS NOT under investigation for COVID-19 or is COVID-19 negative Chronic pain Responsible provider name and phone number to notify for critical findings if other than user placing the order and pager listed below: User placing orders pager: [phone] LAST CREATININE 0.9 (03/27/24) Report Status: Verified Date Reported: MAY 12, 2024 Date Verified: MAY 12, 2024 Chiropractic Assistant E-Sig: Report: SHOULDER RIGHT 4V HISTORY: r/o djd COMPARISON: Radiographs of the right shoulder dated 08/05/2023 TECHNIQUE: 4 view(s) of the right shoulder, submitted to the [place] National Teleradiology Program (NTP) for interpretation. FINDINGS/ Impression: No fracture identified. Abnormal acromiohumeral interval which measures 4 mm. This can be seen in the setting of a rotator cuff tear. Joint space loss and marginal osteophytosis involving the glenohumeral joint consistent with moderate to severe degenerative change. Calcification along the superior, lateral aspect of the humeral head which can be seen in the setting of calcific tendinitis. READING PHYSICIAN: Marino Daily MD -[phone] 05/12/2024 12:50 PDT [facility] National Teleradiology Program [phone] (For Medical Practitioner Use Only) Attention Patients / Veterans: If you have questions or concerns about these test results, please contact your ordering provider or primary care team. Primary Interpreting Staff: RADIOLOGY,OUTSIDE SERVICE, Staff Physician / RADIOLOGY,OUTSIDE SERVICE [facility] May 12, 2024 02:14 PM WRIST RIGHT 3 VIEW S OR MORE: KEENA ROSA [id number] -[id number] M Ex Date: MAY 12, 2024@14:14 Req Phys: ZENY MARTIN Loc: [facility] PACT JOYCE 4E (Req'g Loc) Img Loc: MAIN X-RAY Service: [place] [address] (Case [id number] COMPLETE) WRIST RIGHT 3 VIEWS OR MORE (RAD Detailed) CPT:10127 Proc Modifiers : RIGHT Reason for Study: r/o djd Clinical History: [place] IS NOT under investigation for COVID-19 or is COVID-19 negative Pain, no trauma Responsible provider name and phone number to notify for critical findings if other than user placing the order and pager listed below: User placing orders pager: [phone] xt [phone] LAST CREATININE 0.9 (03/27/24) Report Status: Verified Date Reported: MAY 12, 2024 Date Verified: MAY 12, 2024 Chiropractic Assistant E-Sig: Report: WRIST RIGHT 3 VIEWS OR MORE HISTORY: r/o djd COMPARISON: Radiographs of the right wrist dated 07/05/2020 TECHNIQUE: 3 view(s) of the right wrist, submitted to the [place] National Teleradiology Program (NTP) for interpretation. FINDINGS/ Impression: No fracture identified. Alignment is within normal limits. Severe degenerative changes of osteoarthritis involving the triscaphe joint. There is more mild degenerative change seen at the first carpometacarpal joint. READING PHYSICIAN: Marino Daily MD -[phone] 05/12/2024 12:52 PDT [facility] National Teleradiology Program [phone] (For Medical Practitioner Use Only) Attention Patients / Veterans: If you have questions or concerns about these test results, please contact your ordering provider or primary care team. Primary Interpreting Staff: RADIOLOGY,OUTSIDE SERVICE, Staff Physician / RADIOLOGY,OUTSIDE SERVICE [facility] Encounter Notes: All associated encounter notes This section contains the clinical notes associated to the Encounter. Date/Time Encounter Note(s) Provider Source May 16, 2024 02:12 PM LETTERS: LOCAL TITLE: FOLLOW UP RESULTS LETTER STANDARD TITLE: LETTERS DATE OF NOTE: MAY 16, 2024@14:12 ENTRY DATE: MAY 16, 2024@14:12:11 AUTHOR: ZENY MARTIN COSIGNER: URGENCY: STATUS: COMPLETED [facility] [address] [place] [address] Apr KEENA ROSA [address] [facility] [id number] Dear : Derm Problem List 1.Seborrheic dermatitis Reason for Consult: Seborrheic Dermatitis Symptoms/signs: Facial redness, greasy white to yellow scale in eyebrows, nasolabial crease, hair-bearing areas of face and scalp. Recommendation: - Continue ketonazole shampoo alternating with other ant-dandruff shampoos (e.g zinc pyrithione shampoo) - Protopic 0.1% ointment twice a day to affected areas not responding to ketconale shampoo. Things to know about calcineurin inhibitors - Black box warning for increased risk of malignancy. I explain to patients that this is due to the fact that in transplant patients, it is known that calcineurin inhibitors given orally have caused increased risk of cancers as well in extremely high doses not given in humans topically in animal models. We use this is children eczema and there is now long-term safety data (more than 25,000 person-years of follow-up), showing no increased risk of skin cancers (MARY LOU Dermatol. 2015 Mar;151(6):594-9). A recent meta-analysis did show a slighly increased risk of lymphoma that reach statistical significance (MARY LOU Dermatol. 2020;157(5):549-558). With the low absolute risk of lymphoma, the potential increased risk attributable to topical calcineurin inhibitor use for any individual patient is likely very small. - It can cause burning when applied to the skin. This sometimes goes away and sometimes does not. Putting it in the refrigerator can help. Additional Comments: Please find above the response to the requested dermatology consult regarding your dermatitis. Please let me know if interested in trying the above recommended products. If you have any further questions or problems, please contact our nursing staff or provider at the following number: [phone]. Sincerely, ZENY MARTIN MD PHYSICIAN ZENY MARTIN [facility] May 14, 2024 08:02 AM LETTERS: LOCAL TITLE: FOLLOW UP RESULTS LETTER STANDARD TITLE: LETTERS DATE OF NOTE: MAY 14, 2024@08:02 ENTRY DATE: MAY 14, 2024@08:02:37 AUTHOR: ZENY MARTIN EXP COSIGNER: URGENCY: STATUS: COMPLETED [facility] [address] [place] [address] Apr KEENA ROSA [address] [facility] [address] Dear [place]: I am writing to inform you of the results of testing that you had done recently at the [facility]. - Right shoulder: Impression: No fracture identified. Abnormal acromiohumeral interval which measures 4 mm. This can be seen in the setting of a rotator cuff tear. Joint space loss and marginal osteophytosis involving the glenohumeral joint consistent with moderate to severe degenerative change. Calcification along the superior, lateral aspect of the humeral head which can be seen in the setting of calcific tendinitis. - Right wrist: Impression: No fracture identified. Alignment is within normal limits. Severe degenerative changes of osteoarthritis involving the triscaphe joint. There is more mild degenerative change seen at the first carpometacarpal joint. Additional Comments: Please find above the results of your rightwrist and shoulder x-rays studies. As stated, both studies positive for degenerative changes, with suggestion of a RC tear on the shoulder. An orthopedic consult for further evaluation/management has been placed. If you have any further questions or problems, please contact our nursing staff or provider at the following number: [phone]. Sincerely, ZENY MARTIN MD PHYSICIAN ZENY MARTIN [facility] May 12, 2024 01:57 PM ADMINISTRATIVE NOTE: LOCAL TITLE: AFTER VISIT SUMMARY NOTE STANDARD TITLE: ADMINISTRATIVE NOTE DICT DATE: MAY 12, 2024@13:57:18 ENTRY DATE: MAY 12, 2024@13:57:18 DICTATED BY: ZENY MARTIN EXP COSIGNER: URGENCY: STATUS: COMPLETED The patient was provided with a copy of an after-visit summary at the conclusion of the visit. A copy of the after-visit summary provided to the patient is available in [employer]. SCANNED DOCUMENT SIGNATURE NOT REQUIRED Electronically Filed: 05/12/2024 by: ZENY MARTIN MD PHYSICIAN ZENY MARTIN [facility] May 12, 2024 01:42 PM INTERNAL MEDICINE NOTE: LOCAL TITLE: MEDICINE CLINIC NOTE STANDARD TITLE: INTERNAL MEDICINE NOTE DATE OF NOTE: MAY 12, 2024@13:42 ENTRY DATE: MAY 12, 2024@13:42:58 AUTHOR: ZENY MARTIN EXP COSIGNER: URGENCY: STATUS: COMPLETED MEDICINE CLINIC NOTE Has ADDENDA Nurses notes from today reviewed. KEENA ROSA is a 69 year old MALE. Reason for the visit:issues HPI: - R shoulder pain, limited ROM. - R wrist pain: No trauma, reports having CTS in the past and wearing braces. - LLE brace becoming loose: Will go to prosthetics. - R izquierdo lesion. - Wants to know whether can sell plasma. ROS: Feels well No weight loss No fevers or chills No Chest Pain No Shortness of breath No orthopnea or PND No peripherial edema No nausea or vomiting No change in bowel habits or stools No diarrhea or constipation No bleeding No urinary hesitancy or frequency No hypoglycemia Remainder of review of systems negative. Other/Comments:as above Active problems - Computerized Problem List is the source for the followin. Diabetic peripheral neuropathy (SNOMED CT 167470842) 2. Sleep apnea (SNOMED CT 48382482) - iVAPS: R: 18, PS: 7-16, EPAP+14, Mirag Quatt Med 3. Severe chronic obstructive pulmonary disease (SNOMED CT 352192533) 4. Personal History of Tobacco Use - Quit 2003, Smoked x 25 years 5. Inguinial Hernia Repair 6. Benign essential hypertension (SNOMED CT 9203586) 7. Erectile dysfunction (SNOMED CT 695468967) 8. Osteoarthrosis involving the spine 9. Hyperlipidemia (SNOMED CT 41581695) 10. Polyp of colon (SNOMED CT 66376240) 11. Open Angle, Primary 12. Morbid obesity (SNOMED CT 038470610) 13. History of adenomatous polyp of colon - By 2008 colonoscopy 14. Hypothyroidism 15. Mild memory disturbance - Due to multiple medical etiologies; Normal NPT 2014 16. History of repair of umbilical hernia 17. Chronic pain following right total knee arthroplasty (SNOMED CT 420548864251 18. Hip pain 19. Iron deficiency anemia 20. Diabetes mellitus type 2 without retinopathy (SNOMED CT 5267976309795) 21. Hypokalemia 22. Obesity 23. Ventricular bigeminy 24. Acute non-ST segment elevation myocardial infarction 25. PVC - premature ventricular contraction (SNOMED CT 314382216) 26. Coronary arteriosclerosis - s/p FRED x1 to RCA (2019) 27. History of radiofrequency ablation operation for arrhythmia - - S/p LV summit PVC ablation 12/22/22 28. Exposure to potentially hazardous substance Allergies: LISINOPRIL (February 18, 2009) LOSARTAN (February 18, 2009) AMLODIPINE (Jun 18, 2009) DEMEROL HYDROCHLORIDE INJECTION 50 MG/ML (March 04, 2014) GABAPENTIN (Jan 23, 2016) DULOXETINE (Feb 11, 2016) Medications: Active and Recently Outpatient Medications (excluding Supplies): Active Outpatient Medications Status 1) ACCU-CHEK GUIDE (GLUCOSE) TEST STRIP USE 1 STRIP ACTIVE EVERY DAY 2) ASPIRIN 81MG EC TAB TAKE ONE TABLET BY MOUTH EVERY ACTIVE DAY TO PREVENT BLOOD CLOTS 3) BRIMONIDINE 0.2%/BRINZOLAMID 1% OPH SUSP INSTILL ONE ACTIVE DROP IN BOTH EYES TWO TIMES A DAY FOR GLAUCOMA 4) DESONIDE 0.05% CREAM APPLY THIN LAYER TOPICALLY TWICE ACTIVE A DAY FOR RASH FOR 2 WEEKS OR UNTIL REDNESS AND ITCHING ARE IMPROVED 5) EMPAGLIFLOZIN 25MG TAB TAKE ONE TABLET BY MOUTH EVERY ACTIVE DAY 6) FUROSEMIDE 20MG TAB TAKE ONE TABLET BY MOUTH EVERY ACTIVE DAY 7) ISOSORBIDE MONONITRATE 60MG SA TAB TAKE ONE TABLET BY ACTIVE MOUTH EVERY DAY 8) KETOCONAZOLE 2% SHAMPOO SHAMPOO SCALP, AVALOS, CHEST ACTIVE TOPICALLY 3 TIMES WEEKLY *LATHER FOR 5 MINUTES THEN RINSE* 9) LATANOPROST 0.005% OPH SOLN INSTILL 1 DROP IN BOTH ACTIVE EYES AT BEDTIME FOR GLAUCOMA REFRIGERATE BOTTLE UNTIL OPENED. 10) LEVOTHYROXINE NA (SYNTHROID) 25MCG TAB TAKE ONE ACTIVE TABLET BY MOUTH EVERY DAY FOR THYROID - TAKE AT LEAST FOUR HOURS AWAY FROM FERROUS GLUCONATE 11) LIDOCAINE 5% OINT APPLY MODERATE AMOUNT TOPICALLY ACTIVE EVERY DAY NEEDED FOR PAIN 12) LORATADINE 10MG TAB TAKE ONE TABLET BY MOUTH EVERY ACTIVE DAY FOR ALLERGIES 13) METFORMIN HCL 1000MG TAB TAKE ONE AND ONE-HALF ACTIVE (S) TABLETS BY MOUTH EVERY MORNING AND TAKE ONE TABLET EVERY EVENING 14) METOPROLOL SUCCINATE 25MG SA TAB TAKE ONE-HALF TABLET ACTIVE BY MOUTH EVERY DAY 15) OMEPRAZOLE 20MG EC CAP TAKE ONE CAPSULE BY MOUTH ACTIVE EVERY DAY FOR HEARTBURN 16) ROSUVASTATIN CA 40MG TAB TAKE ONE TABLET BY MOUTH AT ACTIVE (S) BEDTIME 17) SEMAGLUTIDE 1MG/0.75ML INJ PEN 3ML INJECT 1MG UNDER ACTIVE THE SKIN EVERY WEEK ON WEDNESDAYS 18) TIOTROPIUM 18MCG INHL CAP 30 INHALE ONE CAPSULE IN ACTIVE INHALER BY INHALATION EVERY DAY FOR BREATHING 19) TOPIRAMATE 50MG TAB TAKE THREE TABLETS BY MOUTH TWICE ACTIVE A DAY TAKE AT NOON AND BEFORE DINNER TO REDUCE CRAVINGS. Family /Social hx (x ) not applicable to todays visit. Tobacco: () Pt smokes or uses tobacco products and was counseled to d/c. The patient was offered medication to assist with smoking cessation. The patient was also offered a referral to a smoking cessation program. () Pt is not using tobacco products now but has used them in the past year. (Pt counseled to remain abstinent.) () Pt hasn't used tobacco products for a year or more. () Pt has never used tobacco products. 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 MSK:R shoulder with abduction limited to 100 deg and pain on internal rotation. Neurovascular exam wnl distally. R wrist: no deformity/swelling/erythema , some discomfort on ROM. NEURO:grossly intact, no asymmetries. 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 ( ) Result letter will be sent. Assessment and plan: 1) LLE cellulitis: Possibly bug bite as source per pt's report. - Doxycycline per CDSS 2) R shoulder/wrist pain: most likely OA. X-rays ordered. (x ) Patient/Caregiver indicates readiness to learn, verbalizes understanding, agreement and satisfaction with the treatment plan. Patient/Caregiver doesn't have any further questions today. Total time spent on patient care including chart/diagnostic/test review, patient interview/examination, ordering medications/tests, interpreting results,and counseling/documentation was 30 minutes. Medication Reconciliation: Education Evaluations *Was medication education provided for NEW medications or CHANGES to medications? (including medication name, dose, route, reason for use, and potential side effects). Yes. Verbal education was provided to patient/caregiver and patient/caregiver verbalized understanding. TERATOGENIC MED & CONTRACEPTION REVIEW (Optional)... ===== MEDICATION RECONCILIATION ===== List Given: An updated medication list was provided to the patient/caregiver. Review Done: The medication list shown below was verified for accuracy and it includes all pending medications/active medications/all medications or discontinued within the last 90 days/all remote medications and non-VA medications. If a given category (i.e. remote meds) is not shown, that means that a patient doesn't have a medication(s) in that category. Allergies listed below were also reviewed/updated for accuracy. Allergies/ADR from [facility] may not display in CPRS. Use JLV MRT5 - Allergies/ADRs FACILITY ALLERGY/ADR -------- [facility] AMLODIPINE [facility] DEMEROL HYDROCHLORIDE INJECTION 50 MG/ML [facility] DULOXETINE [facility] GABAPENTIN [facility] LISINOPRIL [facility] LOSARTAN [facility] AMLODIPINE [facility] LISINOPRIL Active and Recently Outpatient Medications (including Supplies): Issue Date Status Last Fill Active Outpatient Medications Refills Expiration 1) ACCU-CHEK GUIDE (GLUCOSE) TEST STRIP ACTIVE Issu:09-27-23 Qty: 100 for 90 days Sig: USE 1 STRIP Refills: 3 Last:11-07-23 EVERY DAY Expr:09-27-24 2) ASPIRIN 81MG EC TAB Qty: 120 for 90 ACTIVE Issu:04-04-24 days Sig: TAKE ONE TABLET BY MOUTH Refills: 3 Last:04-04-24 EVERY DAY TO PREVENT BLOOD CLOTS Expr:04-05-25 3) BANDAGE TUBULAR ELASTIC SZ E C#[id number] ACTIVE Issu:09-28-23 Qty: 2 for 30 days Sig: USE 1 BANDAGE Refills: 11 Last:09-28-23 TOPICALLY DIRECTED FOR EDEMA Expr:09-28-24 4) BRIMONIDINE 0.2%/BRINZOLAMID 1% OPH SUSP ACTIVE Issu:03-24-24 Qty: 24 for 90 days Sig: INSTILL ONE Refills: 3 Last:03-24-24 DROP IN BOTH EYES TWO TIMES A DAY FOR Expr:03-25-25 GLAUCOMA 5) CATH,INTERM COUDE 14FR COLOPLAST #[id number] ACTIVE Issu:02-03-24 Qty: 120 for 30 days Sig: USE 1 Refills: 11 Last:02-03-24 CATHETER TOPICALLY DIRECTED Expr:02-03-25 6) DESONIDE 0.05% CREAM Qty: 60 for 90 ACTIVE Issu:10-18-23 days Sig: APPLY THIN LAYER TOPICALLY Refills: 2 Last:10-19-23 TWICE A DAY FOR RASH FOR 2 WEEKS OR Expr:10-18-24 UNTIL REDNESS AND ITCHING ARE IMPROVED 7) EMPAGLIFLOZIN 25MG TAB Qty: 90 for 90 ACTIVE Issu:03-27-24 days Sig: TAKE ONE TABLET BY MOUTH Refills: 3 Last:05-06-24 EVERY DAY Expr:03-28-25 8) FUROSEMIDE 20MG TAB Qty: 90 for 90 days ACTIVE Issu:04-17-24 Sig: TAKE ONE TABLET BY MOUTH EVERY Refills: 3 Last:04-18-24 DAY Expr:04-18-25 9) ISOSORBIDE MONONITRATE 60MG SA TAB Qty: ACTIVE Issu:04-03-24 90 for 90 days Sig: TAKE ONE TABLET Refills: 3 Last:04-04-24 BY MOUTH EVERY DAY Expr:04-04-25 10) KETOCONAZOLE 2% SHAMPOO Qty: 240 for 30 ACTIVE Issu:09-22-23 days Sig: SHAMPOO SCALP, AVALOS, CHEST Refills: 7 Last:04-15-24 TOPICALLY 3 TIMES WEEKLY *LATHER FOR 5 Expr:09-22-24 MINUTES THEN RINSE* 11) LATANOPROST 0.005% OPH SOLN Qty: 7.5 ACTIVE Issu:03-24-24 for 75 days Sig: INSTILL 1 DROP IN Refills: 5 Last:03-24-24 BOTH EYES AT BEDTIME FOR GLAUCOMA Expr:03-25-25 REFRIGERATE BOTTLE UNTIL OPENED. 12) LEVOTHYROXINE NA (SYNTHROID) 25MCG TAB ACTIVE Issu:03-27-24 Qty: 90 for 90 days Sig: TAKE ONE Refills: 3 Last:04-23-24 TABLET BY MOUTH EVERY DAY FOR THYROID Expr:03-28-25 - TAKE AT LEAST FOUR HOURS AWAY FROM FERROUS GLUCONATE 13) LIDOCAINE 5% OINT Qty: 35 for 30 days ACTIVE Issu:04-17-24 Sig: APPLY MODERATE AMOUNT TOPICALLY Refills: 11 Last:04-18-24 EVERY DAY NEEDED FOR PAIN Expr:04-18-25 14) LORATADINE 10MG TAB Qty: 90 for 90 days ACTIVE Issu:04-27-24 Sig: TAKE ONE TABLET BY MOUTH EVERY Refills: 3 Last:07-12-24 DAY FOR ALLERGIES Expr:04-28-25 15) METFORMIN HCL 1000MG TAB Qty: 225 for ACTIVE (S) Issu:04-17-24 90 days Sig: TAKE ONE AND ONE-HALF Refills: 2 Last:07-07-24 TABLETS BY MOUTH EVERY MORNING AND Expr:04-18-25 TAKE ONE TABLET EVERY EVENING 16) METOPROLOL SUCCINATE 25MG SA TAB Qty: ACTIVE Issu:02-17-24 45 for 90 days Sig: TAKE ONE-HALF Refills: 2 Last:05-07-24 TABLET BY MOUTH EVERY DAY Expr:02-17-25 17) OMEPRAZOLE 20MG EC CAP Qty: 90 for 90 ACTIVE Issu:12-09-23 days Sig: TAKE ONE CAPSULE BY MOUTH Refills: 0 Last:03-01-24 EVERY DAY FOR HEARTBURN Expr:12-09-24 18) ROSUVASTATIN CA 40MG TAB Qty: 90 for 90 ACTIVE (S) Issu:04-03-24 days Sig: TAKE ONE TABLET BY MOUTH AT Refills: 2 Last:06-23-24 BEDTIME Expr:04-04-25 19) SEMAGLUTIDE 1MG/0.75ML INJ PEN 3ML Qty: ACTIVE Issu:03-17-24 1 for 28 days Sig: INJECT 1MG UNDER Refills: 10 Last:04-15-24 THE SKIN EVERY WEEK ON WEDNESDAYS Expr:03-18-25 20) TIOTROPIUM 18MCG INHL CAP 30 Qty: 3 for ACTIVE Issu:10-19-23 90 days Sig: INHALE ONE CAPSULE IN Refills: 3 Last:10-20-23 INHALER BY INHALATION EVERY DAY FOR Expr:10-19-24 BREATHING 21) TOPIRAMATE 50MG TAB Qty: 540 for 90 ACTIVE Issu:09-27-23 days Sig: TAKE THREE TABLETS BY MOUTH Refills: 1 Last:04-26-24 TWICE A DAY TAKE AT NOON AND BEFORE Expr:09-27-24 DINNER TO REDUCE CRAVINGS. Issue Date Status Last Fill Pending Outpatient Medications Refills Expiration 1) DOXYCYCLINE HYCLATE 100MG TAB Qty: 10 PENDING Sig: TAKE ONE TABLET BY MOUTH TWICE A Refills: 0 DAY Issue Date Status Last Fill Inactive Outpatient Medications Refills Expiration 1) ACETAMINOPHEN 500MG TAB Qty: 200 for 30 DISCONTINUED Issu:04-08-23 days Sig: TAKE TWO TABLETS BY MOUTH Refills: 9 Last:08-19-23 THREE TIMES A DAY NEEDED FOR PAIN Expr:04-08-24 FOR PAIN. NO MORE THAN 3000MG PER DAY. CONSIDER CHANGE TO NEEDED DOSING ONCE OFF OF OTHER POST-OPERATIVE PAIN MEDICATIONS. 2) ASPIRIN 81MG EC TAB Qty: 84 for 42 days Issu:01-10-24 Sig: TAKE TWO TABLETS BY MOUTH EVERY Refills: 0 Last:01-11-24 DAY FOR CLOT PREVENTION FOR 6 WEEKS Expr:02-21-24 THEN RESUME PREVIOUS HOME DOSE OF 1 TABLET BY MOUTH DAILY. TAKE WITH FOOD. 3) BRIMONIDINE 0.2%/BRINZOLAMID 1% OPH SUSP DISCONTINUED Issu:09-22-23 Qty: 24 for 90 days Sig: INSTILL ONE Refills: 3 Last:09-22-23 DROP IN BOTH EYES TWO TIMES A DAY FOR Expr:09-22-24 GLAUCOMA 4) CHOLECALCIF 25MCG (D3-1,000UNIT) TAB Issu:03-09-23 Qty: 100 for 90 days Sig: TAKE ONE Refills: 0 Last:03-01-24 TABLET BY MOUTH EVERY DAY Expr:03-09-24 5) DICLOFENAC NA 1% TOP GEL Qty: 200 for DISCONTINUED Issu:04-08-23 30 days Sig: APPLY 4 GRAMS TOPICALLY Refills: 9 Last:07-06-23 TWICE A DAY NEEDED TO AFFECTED AREA Expr:04-08-24 FOR PAIN FOR CHEST PAINUSE DOSE CARD IN BOX TO MEASURE DOSEMAX 32 GM PER DAY 6) DOXEPIN HCL 5% TOP CREAM Qty: 90 for 30 Issu:03-09-23 days Sig: APPLY TO AFFECTED AREA Refills: 1 Last:03-01-24 TOPICALLY THREE TIMES A DAY NEEDED Expr:03-09-24 FOR FOOT PAIN 7) EMPAGLIFLOZIN 25MG TAB Qty: 90 for 90 DISCONTINUED Issu:03-09-23 days Sig: TAKE ONE TABLET BY MOUTH Refills: 0 Last:02-16-24 EVERY DAY Expr:03-09-24 8) FERROUS GLUCONATE 324MG TAB Qty: 100 Issu:03-09-23 for 90 days Sig: TAKE ONE TABLET BY Refills: 2 Last:02-16-24 MOUTH EVERY DAY AT LEAST 4 HOURS AWAY Expr:03-09-24 FROM LEVOTHYROXINE 9) FUROSEMIDE 20MG TAB Qty: 90 for 90 days DISCONTINUED Issu:03-09-23 Sig: TAKE ONE TABLET BY MOUTH EVERY Refills: 0 Last:12-22-23 DAY Expr:03-09-24 10) IBUPROFEN 800MG TAB Qty: 20 for 5 days Issu:01-11-24 Sig: TAKE ONE TABLET BY MOUTH FOUR Refills: 0 Last:01-11-24 TIMES A DAY NEEDED FOR KIDNEY STONE Expr:02-10-24 PAIN - TAKE WITH FOOD 11) INSULIN,GLARGINE 100 UNT/ML 3ML SOLOSTAR DISCONTINUED Issu:09-27-23 Qty: 15 for 90 days Sig: INJECT 50 Refills: 3 Last:10-20-23 UNITS UNDER THE SKIN EVERY DAY FOR Expr:09-27-24 DIABETES 12) INSULIN,GLARGINE-YFGN 100UNIT/ML PEN 3ML DISCONTINUED Issu:09-27-23 Qty: 15 for 90 days Sig: INJECT 50 Refills: 3 Last:10-17-23 UNITS UNDER THE SKIN EVERY DAY FOR Expr:09-27-24 DIABETES 13) ISOSORBIDE MONONITRATE 60MG SA TAB Qty: DISCONTINUED Issu:03-09-23 90 for 90 days Sig: TAKE ONE TABLET Refills: 0 Last:12-22-23 BY MOUTH EVERY DAY Expr:03-09-24 14) KETOCONAZOLE 2% CREAM Qty: 60 for 30 Issu:03-09-23 days Sig: APPLY THIN LAYER TOPICALLY Refills: 9 Last:09-14-23 TWICE A DAY EXTERNAL USE ONLY FOR Expr:03-09-24 FACIAL RASH 15) LATANOPROST 0.005% OPH SOLN Qty: 7.5 DISCONTINUED Issu:09-22-23 for 75 days Sig: INSTILL 1 DROP IN Refills: 5 Last:09-22-23 BOTH EYES AT BEDTIME FOR GLAUCOMA Expr:09-22-24 REFRIGERATE BOTTLE UNTIL OPENED. 16) LEVOTHYROXINE NA (SYNTHROID) 25MCG TAB DISCONTINUED Issu:03-09-23 Qty: 90 for 90 days Sig: TAKE ONE Refills: 0 Last:02-03-24 TABLET BY MOUTH EVERY DAY FOR THYROID Expr:03-09-24 - TAKE AT LEAST FOUR HOURS AWAY FROM FERROUS GLUCONATE 17) LIDOCAINE 5% OINT Qty: 35 for 30 days DISCONTINUED Issu:04-08-23 Sig: APPLY MODERATE AMOUNT TOPICALLY Refills: 5 Last:03-08-24 EVERY DAY NEEDED FOR PAIN Expr:04-08-24 18) LORATADINE 10MG TAB Qty: 90 for 90 days Issu:03-09-23 Sig: TAKE ONE TABLET BY MOUTH EVERY Refills: 0 Last:02-03-24 DAY FOR ALLERGIES Expr:03-09-24 19) METFORMIN HCL 1000MG TAB Qty: 225 for DISCONTINUED Issu:03-09-23 90 days Sig: TAKE ONE AND ONE-HALF Refills: 0 Last:01-10-24 TABLETS BY MOUTH EVERY MORNING AND Expr:03-09-24 TAKE ONE TABLET EVERY EVENING 20) METOPROLOL SUCCINATE 25MG SA TAB Qty: DISCONTINUED Issu:01-28-23 45 for 90 days Sig: TAKE ONE-HALF Refills: 1 Last:11-13-23 TABLET BY MOUTH EVERY DAY Expr:01-29-24 21) MULTIVITAMIN CAP/TAB Qty: 100 for 90 Issu:03-09-23 days Sig: TAKE 1 TABLET BY MOUTH Refills: 3 Last:03-09-23 EVERY DAY Expr:03-09-24 22) NITROGLYCERIN 0.4MG SL TAB Qty: 100 for Issu:05-23-23 30 days Sig: DISSOLVE ONE TABLET Refills: 3 Last:03-09-23 UNDER THE TONGUE EVERY 5 MINUTES FOR Expr:03-09-24 UP TO 3 DOSES IF NEEDED FOR CHEST PAIN 23) OMEPRAZOLE 20MG EC CAP Qty: 90 for 90 DISCONTINUED Issu:06-03-23 days Sig: TAKE ONE CAPSULE BY MOUTH Refills: 0 Last:09-15-23 EVERY DAY FOR HEARTBURN Expr:06-03-24 24) ONDANSETRON 8MG ORAL DISINTEGRATING TAB Issu:01-11-24 Qty: 20 for 7 days Sig: DISSOLVE ONE Refills: 0 Last:01-11-24 TABLET BY UNDER THE TONGUE THREE TIMES Expr:02-10-24 A DAY NEEDED FOR NAUSEA 25) ROSUVASTATIN CA 40MG TAB Qty: 90 for 90 DISCONTINUED Issu:03-09-23 days Sig: TAKE ONE TABLET BY MOUTH AT Refills: 0 Last:12-22-23 BEDTIME Expr:03-09-24 26) SEMAGLUTIDE 1MG/0.75ML INJ PEN 3ML Qty: DISCONTINUED Issu:03-09-23 1 for 28 days Sig: INJECT 1MG UNDER Refills: 3 Last:02-03-24 THE SKIN EVERY WEEK ON WEDNESDAYS Expr:03-09-24 27) TAMSULOSIN HCL 0.4MG CAP Qty: 7 for 7 Issu:01-11-24 days Sig: TAKE ONE CAPSULE BY MOUTH Refills: 0 Last:01-11-24 EVERY DAY TO PASS KIDNEY STONES FOR 7 Expr:02-10-24 DAYS 28) VANICREAM TOP CREAM Qty: 454 for 60 Issu:03-09-23 days Sig: APPLY THIN LAYER TOPICALLY Refills: 0 Last:02-03-24 EVERY DAY NEEDED TO FEET AND LEGS Expr:03-09-24 FOR DRY SKIN. 50 Total Medications /kyle/ ZENY MARTIN MD PHYSICIAN Signed: 05/12/2024 15:02 05/12/2024 ADDENDUM STATUS: COMPLETED On the donating plasma question pt informed that [facility] is outside [facility] and that he'll have to follow the policies of the center where he is donating. Explained that false positives tests for transmisible diseases may happen. /kyle/ ZENY MARTIN MD PHYSICIAN Signed: 05/12/2024 15:05 ZENY MARTIN [facility] May 12, 2024 01:15 PM INTERNAL MEDICINE OUTPATIENT NOTE: LOCAL TITLE: MEDICINE CLINIC NURSING NOTE STANDARD TITLE: INTERNAL MEDICINE OUTPATIENT NOTE DATE OF NOTE: MAY 12, 2024@13:15 ENTRY DATE: MAY 12, 2024@13:16:01 AUTHOR: SURAJ VILLEGAS EXP COSIGNER: URGENCY: STATUS: COMPLETED MEDICINE CLINIC NURSING NOTE Has ADDENDA TYPE OF VISIT: Appointment Check In Type of appointment: In-person appointment REASON FOR VISIT: VET C/O hand, wrist, and left leg pain ALLERGIES: LISINOPRIL (February 18, 2009) LOSARTAN (February 18, 2009) AMLODIPINE (Jun 18, 2009) DEMEROL HYDROCHLORIDE INJECTION 50 MG/ML (March 04, 2014) GABAPENTIN (Jan 23, 2016) DULOXETINE (Feb 11, 2016) Vital Signs: Blood Pressure: 112/75 (05/12/2024 13:19) Pulse: 59 (05/12/2024 13:19) Respiration: 18 (05/12/2024 13:19) Temperature: 97.7 F [36.5 C] (05/12/2024 13:19) Weight: 196.1 lb [88.95 kg] (05/12/2024 13:19) Height: 70 in [177.8 cm] (05/12/2024 13:19) BMI: 28.2 Pain: 6 (05/12/2024 13:19) PAIN SCREEN: Patient is having significant pain that they would like to talk to their provider about today. Old (Chronic) (began more than 6 months ago) Patient states their average pain this past week is 6 Patient states the average number on how the chronic pain affects their enjoyment of life the past week is 6 Patient states during the past week the average number on how the pain has interfered with their general activity is 6 Pain Education Patient indicates readiness to learn and verbalizes understanding of the following: Has concerns/questions, advised to discuss with provider MEDICATION Over the Counter/Herbal Medications: The patient denies taking any outside medications or herbals. 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 Printed information was offered and provided if desired. No questions at this time [place]/caregiver was informed of local points of contact. Contact information for local resources: - Veterans Benefits for claims submission: Have the call or have them visit the following web address for online scheduling: [email or web address] - [place] Healthcare Enrollment: [phone] ([phone]) - Find a [place] Assistant (VSO): Have the call [phone] or look up their VSO at: [email or web address] - [facility] Navigators: Licha BallesterosC[facility] [phone] Toxic Exposure Screening Follow-Up reminder is needed. Name of person notified: DR MARTIN Depression Screening: Perform PHQ-2 A PHQ-2 screen was performed. The score was 2 which is a negative screen for depression. Over the past two weeks, how often have you been bothered by the following problems? 1. Little interest or pleasure in doing things Several days 2. Feeling down, depressed, or hopeless Several days Alcohol Use Screen (AUDIT-C): Alcohol Screen: SCREEN FOR ALCOHOL (AUDIT-C) An alcohol screening test (AUDIT-C) was negative (score=0). 1. How often did you have a drink containing alcohol in the past year? Consider a drink to be a 12 ounce can or bottle of regular beer, 8 ounces of malt liquor, a 5 ounce glass of table wine, or a 1.5 ounce shot of liquor (like scotch, gin, or vodka). Never 2. How many drinks containing alcohol did you have on a typical day when you were drinking in the past year? Response not required due to responses to other questions. 3. How often did you have six or more drinks on one occasion in the past year? Response not required due to responses to other questions. Influenza Immunization: No influenza vaccination was received during the recent influenza season. COVID-19 Immunization: Refused Pfizer Monovalent COVID-19 vaccine Immunization: COVID-19 (PFIZER), MRNA, LNP-S, PF, GABRIELA-SUCROSE, 30 MCG/0.3 ML (AGES 12+ YEARS) Refusal Reason: PATIENT DECISION Patient refuses all immunization(s) in the COVID-19 group Date Documented: 05/12/24 13:18 Herpes Zoster (Shingles) Vaccine: The patient declines to receive the recommended dose of zoster (shingles) vaccine. Immunization: ZOSTER RECOMBINANT Refusal Reason: PATIENT DECISION Patient refuses all immunization(s) in the ZOSTER group Date Documented: 05/12/24 13:19 Pneumococcal PPSV23 (Pneumovax): The patient declines to receive the recommended dose of PPSV23 vaccine. Immunization: PNEUMOCOCCAL POLYSACCHARIDE PPV23 Refusal Reason: PATIENT DECISION Patient refuses all immunization(s) in the PneumoPPV group Date Documented: 05/12/24 13:19 Td / Tdap Immunization: The patient declines to receive the recommended dose of Td/Tdap vaccine. Immunization: TD(ADULT) UNSPECIFIED FORMULATION Refusal Reason: PATIENT DECISION Patient refuses all immunization(s) in the Td group Date Documented: 05/12/24 13:19 /kyle/ SURAJ VILLEGAS LPN Signed: 05/12/2024 13:21 05/15/2024 ADDENDUM STATUS: COMPLETED Toxic Exposure Screening Follow-Up: Exposure Concern(s): 05/12/2024 Agent [place] - Toxic Exposure Concern 01/28/2023 Agent [place] - Toxic Exposure Concern Follow-up Question(s): 05/12/2024 No Questions - Toxic Exposure Concern 01/28/2023 No Questions - Toxic Exposure Concern declines further assistance at this time. /kyle/ LICHA BALLESTEROS NURSE PRACTITIONER Signed: 05/15/2024 07:44 SURAJ VILLEGAS [facility]
--- OUTSIDE RECORDS SUMMARY | 2025-01-16 08:01 | XMS_ITS | Encounter Summary ---
Author Name [facility] [place] [facility] [place] [facility] [place] Address [address] [place] [address] Care Team Providers Care Patient Coordinator Name Role Phone ZENY MARTIN Primary Care [...] PART A Oct 18, 2013 PART A [id number] [phone] Mary ROSA PATIENT MEDICARE ([place]) MEDICARE (M) PART B Oct 18, 2013 PART B [id number] [phone] Mary ROSA PATIENT MEDICARE ([place]) MEDICARE (M) PART A Oct 18, 2013 PART A [id number] Mary ROSA PATIENT Selected Encounter This section includes the information on record at [place] for the Encounter. Date/Time Encounter Type Encounter Description Reason Provider Source Jan 15, 2025 01:30 PM PH1 ASSMT&MGMT NQHP 11-20 TELEPHONE PRIMARY CARE ICD-10-CM M19.019 Primary osteoarthritis, unspecified shoulder IRIS ZHU Encounter Template Text not used by [place] Assessments - Encounter Diagnoses This section includes the primary and secondary diagnoses documented for the Encounter. Date/Time Primary/Secondary Diagnosis Diagnosis Name Provider Source Jan 15, 2025 01:30 PM PRIMARY Primary osteoarthritis, unspecified shoulder IRIS ZHU [facility] Jan 15, 2025 01:30 PM SECONDARY Counseling, unspecified IRIS ZHU [facility] Jan 15, 2025 01:30 PM SECONDARY Drug induced constipation IRIS ZHU [facility] Plan of Treatment: Future Appointments (+ 6 months) and Future Tests (+/- 45 days) The Plan of Treatment section includes future care activities for the patient [facility] [place] [facility] This section includes future appointments and future orders which are active, pending or scheduled. Future Appointments This section includes appointments that were scheduled to occur 6 months from the date of the Encounter, up to a maximum of 20 appointments. The data comes from all [facility]. Appointment Date/Time Appointment Type Appointme nt Facility Name Jan 24, 2025 01:00 PM AMBULATORY - SURGERY [facility] Jan 25, 2025 10:00 AM AMBULATORY - MEDICINE [facility] Jan 25, 2025 11:00 AM AMBULATORY - REHAB [facility] Feb 01, 2025 10:00 AM AMBULATORY - MEDICINE [facility] Feb 01, 2025 11:00 AM AMBULATORY - MEDICINE [facility] Feb 08, 2025 10:00 AM AMBULATORY - MEDICINE [facility] February 22, 2025 10:00 AM AMBULATORY - MEDICINE [facility] February 23, 2025 11:00 AM AMBULATORY - NONE [facility] February 23, 2025 11:30 AM AMBULATORY - SURGERY [facility] March 08, 2025 10:00 AM AMBULATORY - MEDICINE [facility] Apr 09, 2025 01:00 PM AMBULATORY - SURGERY [facility] Active, Pending, and Scheduled Orders This section includes a listing of several types of active, pending, and scheduled orders, including clinic medications orders, diagnostic test orders, procedure orders and consult orders; where the start date of the order is 45 days before the date of the Encounter or 45 days after the date of theEncounter. The data comes from all [facility]. Test Date/Time Test Type Test Details Facility Name Dec 11, 2024 11:04 AM Consult Order PT PHYSICA L THERAPY OUTPT ORTHO SURGERY [employer] Operator's Choice [facility] Jan 10, 2025 12:00 AM Laboratory - Blood Bank Order TYPE & SCREEN - LAB BLOOD WC [facility] Jan 12, 2025 08:18 AM Consult Order [facility] [employer] Operator's Choice [facility] Jan 22, 2025 12:00 AM Laboratory - Chemi stry Order HEMOGLOBIN A1C BLOOD SP ONCE [facility] Jan 22, 2025 12:00 AM Laboratory - Chemi stry Order BASIC METABOLIC PANEL+MG PLASMA SP [facility] February 23, 2025 11:00 AM Imaging - General Radiology Order SHOULDER RIGHT 2-3 VIEWS RIGHT [facility] Lab Results: +/- 30 days [...] Range Comment Jan 11, 2025 12:21 PM [facility] FINGERSTICK GLUCOSE Specimen Type: BLOOD Comment: Save Result Nurse Notified Ordering Provider: ANDREA WOLF Report Released Date/Time: Jan 11, 2025 12:51 PM Reporting Lab: [facility] [phone] Performing Lab: [facility] [phone] FINGERSTICK GLUCOSE 246 mg/dL H 70-100 Jan 11, 2025 07:37 AM [facility] CBC Specimen Type: BLOOD No comment entered. Ordering Provider: ANDREA WOLF Report Released Date/Time: Jan 10, 2025 02:40 PM Reporting Lab: [facility] [phone] Performing Lab: [facility] [phone] WBC 9.7 4.0-11.0 RBC 4.50 L 4.60-6.20 HGB 12.9 g/dL L 13.5-17.9 HCT 42.3 41.0-54.0 MCV 94.0 fL 80.0-100.0 MCH 28.7 pg 27.0-33.0 MCHC 30.5 g/dL L 32.0-37.5 PLT 174 150-400 MPV 11.5 fL 9.1-13.0 RDW 13.3 11.5-14.5 Jan 11, 2025 07:37 AM [facility] BASIC METABOLIC PANEL+MG Specimen Type: PLASMA No comment entered. Ordering Provider: ANDREA WOLF Report Released Date/Time: Jan 10, 2025 02:40 PM Reporting Lab: [facility] [phone] Performing Lab: [facility] [phone] CREATININE 1.0 mg/dL 0.7-1.2 UREA NITROGEN 21 mg/dL 8-26 GLUCOSE 203 mg/dL H 70-100 SODIUM 136 mmol/L 136-145 POTASSIUM 4.1 mmol/L 3.5-5.1 CHLORIDE 102 mmol/L 98-107 CO2 23 mmol/L 22-29 CALCIUM 8.8 mg/dL 8.4-10.2 MAGNESIUM 2.0 mg/dL 1.6-2.6 ANION GAP 11 mmol/L 5-15 .CREAT EGFR(CKD-EPI) 80 >60 Jan 11, 2025 06:10 AM [facility] FINGERSTICK GLUCOSE Specimen Type: BLOOD Comment: Save Result Nurse Notified Ordering Provider: Lilli CHRISTENSEN Report Released Date/Time: Jan 11, 2025 07:41 AM Reporting Lab: [facility] [phone] Performing Lab: [facility] [phone] FINGERSTICK GLUCOSE 220 mg/dL H 70-100 Jan 10, 2025 08:11 PM [facility] FINGERSTICK GLUCOSE Specimen Type: BLOOD Comment: Save Result Nurse Notified Ordering Provider: Lilli CHRISTENSEN Report Released Date/Time: Jan 10, 2025 08:36 PM Reporting Lab: [facility] [phone] Performing Lab: [facility] [phone] FINGERSTICK GLUCOSE 239 mg/dL H 70-100 Jan 10, 2025 04:30 PM [facility] FINGERSTICK GLUCOSE Specimen Type: BLOOD Comment: Save Result Nurse Notified Ordering Provider: Lilli CHRISTENSEN Report Released Date/Time: Jan 10, 2025 05:34 PM Reporting Lab: [facility] [phone] Performing Lab: [facility] [phone] FINGERSTICK GLUCOSE 190 mg/dL H 70-100 Jan 10, 2025 02:40 PM [facility] FINGERSTICK GLUCOSE Specimen Type: BLOOD Comment: Save Result Nurse Notified Ordering Provider: BENIGNO KIM Report Released Date/Time: Jan 10, 2025 03:01 PM Reporting Lab: [facility] [phone] Performing Lab: [facility] [phone] FINGERSTICK GLUCOSE 183 mg/dL H 70-100 Jan 10, 2025 08:35 AM [facility] ACT PART THROMBO TIME Specimen Type: PLASMA Comment: ~Draw on admission. Call IV team to draw on admission. Ordering Provider: BENIGNO KIM Report Released Date/Time: Jan 10, 2025 08:01 AM Reporting Lab: [facility] [phone] Performing Lab: [facility] [address] APTT 31.4 s 25.1-36.5 Jan 10, 2025 08:35 AM [facility] PROTHROMBIN TIME/INR Specimen Type: PLASMA Comment: ~Draw on admission. Call IV team to draw on admission. Ordering Provider: BENIGNO KIM Report Released Date/Time: Jan 10, 2025 08:01 AM Reporting Lab: [facility] [phone] Performing Lab: [facility] [phone] .INR 0.9 0.8-1.1 .PT 10.9 s 9.4-12.5 Jan 10, 2025 08:35 AM [facility] CBC Specimen Type: BLOOD No comment entered. Ordering Provider: BENIGNO KIM A Report Released Date/Time: Jan 10, 2025 08:01 AM Reporting Lab: [facility] [phone] Performing Lab: [facility] [phone] WBC 6.6 4.0-11.0 RBC 5.00 4.60-6.20 HGB 14.5 g/dL 13.5-17.9 HCT 46.1 41.0-54.0 MCV 92.2 fL 80.0-100.0 MCH 29.0 pg 27.0-33.0 MCHC 31.5 g/dL L 32.0-37.5 PLT 172 150-400 MPV 10.9 fL 9.1-13.0 RDW 13.7 11.5-14.5 Jan 10, 2025 08:35 AM [facility] BASIC METABOLIC PANEL+MG Specimen Type: PLASMA No comment entered. Ordering Provider: BENIGNO KIM A Report Released Date/Time: Jan 10, 2025 08:01 AM Reporting Lab: [facility] [phone] Performing Lab: [facility] [phone] CREATININE 0.9 mg/dL 0.7-1.2 UREA NITROGEN 19 mg/dL 8-26 GLUCOSE 151 mg/dL H 70-100 SODIUM 138 mmol/L 136-145 POTASSIUM 3.9 mmol/L 3.5-5.1 CHLORIDE 106 mmol/L 98-107 CO2 23 mmol/L 22-29 CALCIUM 9.3 mg/dL 8.4-10.2 MAGNESIUM 2.0 mg/dL 1.6-2.6 ANION GAP 9 mmol/L 5-15 .CREAT EGFR(CKD-EPI) >90 >60 Jan 10, 2025 08:35 AM [facility] FINGERSTICK GLUCOSE Specimen Type: BLOOD Comment: Save Result Ordering Provider: BENIGNO KIM A Report Released Date/Time: Jan 10, 2025 10:31 AM Reporting Lab: [facility] [phone] Performing Lab: [facility] [phone] FINGERSTICK GLUCOSE 155 mg/dL H 70-100 Dec 18, 2024 12:16 PM [facility] ALBUMIN Specimen Type: PLASMA No comment entered. Ordering Provider: BENIGNO KIM A Report Released Date/Time: Sep 27, 2024 10:57 AM Reporting Lab: [facility] [phone] Performing Lab: [facility] [phone] ALBUMIN 4.4 g/dL 3.5-5.0 Dec 18, 2024 12:16 PM [facility] HEMOGLOBIN A1C Specimen Type: BLOOD [...] Sep 27, 2024 10:57 AM Reporting Lab: [facility] [phone] Performing Lab: [facility] [phone] HEMOGLOBIN A1C 7.1 H 4.0-6.0 Dec 18, 2024 12:16 PM [facility] PROTHROMBIN TIME/INR Specimen Type: PLASMA No comment entered. Ordering Provider: BENIGNO KIM A Report Released Date/Time: Sep 27, 2024 10:57 AM Reporting Lab: [facility] [phone] Performing Lab: [facility] [phone] .INR 0.9 0.8-1.1 .PT 10.3 s 9.4-12.5 Dec 18, 2024 12:16 PM [facility] BASIC METABOLIC PANEL+MG Specimen Type: PLASMA No comment entered. Ordering Provider: BENIGNO KIM A Report Released Date/Time: Sep 27, 2024 10:57 AM Reporting Lab: [facility] [phone] Performing Lab: [facility] [phone] CREATININE 1.0 mg/dL 0.7-1.2 UREA NITROGEN 19 mg/dL 8-26 GLUCOSE 118 mg/dL H 70-100 SODIUM 139 mmol/L 136-145 POTASSIUM 4.1 mmol/L 3.5-5.1 CHLORIDE 104 mmol/L 98-107 CO2 25 mmol/L 22-29 CALCIUM 9.6 mg/dL 8.4-10.2 MAGNESIUM 2.1 mg/dL 1.6-2.6 ANION GAP 10 mmol/L 5-15 .CREAT EGFR(CKD-EPI) 80 >60 Dec 18, 2024 12:16 PM [facility] CBC & DIFF Specimen Type: BLOOD Comment: Automated Differential Performed Ordering Provider: BENIGNO KIM A Report Released Date/Time: Sep 27, 2024 10:57 AM Reporting Lab: [facility] [phone] Performing Lab: [facility] [phone] WBC 9.5 4.0-11.0 RBC 5.05 4.60-6.20 HGB [...] 19, 2023 08:00 AM VA-TOBACCO FORMER USER [facility] Tobacco Use History This section includes a history of the smoking, or tobacco-related health factors, that were collected on or before the date of the Encounter. The data comes from the [place] facility where the Encounter took place. Date/Time Smoking Status/Tobacco Use Comment Lanie irby Nov 19, 2023 08:00 AM VA-TOBACCO QUIT 15 YRS OR MORE [facility] Jan 28, 2023 09:45 AM VA-TOBACCO FORMER USER [facility] Jan 28, 2023 09:45 AM VA-TOBACCO QUIT 15 YRS OR MORE [facility] Oct 30, 2021 03:00 PM VA-TOBACCO FORMER USER [facility] Oct 30, 2021 03:00 PM VA-TOBACCO QUIT 5 TO < 15 YRS [facility] Aug 17, 2019 11:38 AM VA-TOBACCO FORMER USER [facility] Aug 17, 2019 11:38 AM VA-TOBACCO QUIT 5 TO < 15 YRS [facility] Jan 06, 2018 02:39 PM FORMER TOBACCO USER 7Y OR GREATE R [facility] Jan 28, 2017 12:47 PM FORMER TOBACCO USER 7Y OR GREATE R [facility] Jan 21, 2016 03:04 PM FORMER TOBACCO USER 7Y OR GREATE R [facility] Apr 02, 2015 02:05 PM FORMER TOBACCO USER 7Y OR GREATE R [facility] March 01, 2014 09:10 AM FORMER TOBACCO USER 7Y OR GREATE R [facility] Sep 18, 2013 09:13 AM CDM COPD TOBACCO NON-USER [facility] May 28, 2013 11:05 AM LIFETIME NON-TOBACCO USER [facility] May 25, 2013 12:08 PM FORMER TOBACCO USER 7Y OR GREATE R [facility] Jun 18, 2009 09:48 AM FORMER TOBACCO USER 7Y OR GREATE R [facility] Aug 24, 2008 10:10 AM FORMER TOBACCO USE >1Y <7Y [facility] Advance Directives: All historical and current Section Date Range: From patient's date of to the date document was created. This section includes ALL of a patient's completed or amended [place] Advance and Rescinded Directives. The entries below indicate that a directive exists for the patient, but an actual copy is not included with this document. The data comes from all [facility]. Date Advance Directives Provider Source March 08, 2023 ADVANCE DIRECTIVE ODILIA CHRISTIANSON [facility] May 02, 2014 ADVANCE DIRECTIVE DISCUSSION QUEENIE SAENZ [facility] May 24, 2013 CLINICAL WARNING GALINDO STUART [facility] Sep 21, 2011 ADVANCE DIRECTIVE JORDAN ZHANG [facility] Radiology Reports: +/- 30 days of [...] the Encounter. The data comes from all [place] treatment facilities. Date/Time Radiology Report Provider Source Jan 10, 2025 07:58 AM SHOULDER RIGHT 2-3 VIEWS: KEENA ROSA [id number] -[id number] M Exm Date: JAN 10, 2025@07:58 Req Phys: SHELLI KIM Loc: OR-PACU/01-10-2025@15:42 Img Loc: MAIN X-RAY Service: [place] [address] (Case [id number] COMPLETE) SHOULDER RIGHT 2-3 VIEWS (RAD Detailed) CPT:65353 Proc Modifiers : PORTABLE EXAM, OPERATING ROOM EXAM Reason for Study: right reverse TSA Clinical History: OR 6 shoulder rotator cuff arthropathy My pager number on record is: . I confirm that the pager number/cell phone number above is correct for reporting critical results. My correct contact # for critial results is:Valerio KIM [phone] Trainees only: Enter your staff provider's info here: LAST CREATININE 1.0 (12/18/24) Report Status: Verified Date Reported: JAN 10, 2025 Date Verified: JAN 10, 2025 Computer Operations Analyst E-Sig:/ES/MIRANDA BROOKE MD Report: EXAMINATION: SHOULDER RIGHT 2-3 VIEWS 01/10/2025 7:58 AM INDICATION: right reverse TSA Impression: Right reverse TSA. Components appear well seated. Report Sign Date/Time: 01/10/2025 3:39 PM Primary Interpreting Staff: MIRANDA BROOKE MD, RADIOLOGIST (Computer Operations Analyst) /RTS MIRANDA BROOKE [facility] Encounter Notes: All associated encounter notes This section contains the clinical notes associated to the Encounter. Date/Time Encounter Note(s) Provider Source Jan 15, 2025 01:30 PM PRIMARY CARE NOTE: LOCAL TITLE: POST DISCHARGE CONTACT STANDARD TITLE: PRIMARY CARE NOTE DATE OF NOTE: JAN 15, 2025@13:30 ENTRY DATE: JAN 15, 2025@13:31:18 AUTHOR: IRIS ZHU COSIGNER: URGENCY: STATUS: COMPLETED Location of Discharge: Hospital Contact attempt: 1st [place] identified by the following: Full Name Contact made through telephone call Reason for hospitalization/Emergency Department/Urgent Care visit: Total Shoulder Arthroplasty /Caregiver states condition has not changed. He reports his pain is miserable. He has been alternating between oxycodone and Tylenol but has not tried the methocarbamol. Advised to try taking the methocarbamol at the same time as the Tylenol. He reports his ice machine is not helping. Advised trying bags of frozen vegetables. Reviewed use of lidocaine patches. Osei reports he is passing gas but has not had a BM yet. He is taking the MiraLAX daily in his coffee. Advised to drink more water, try adding the docusate, and getting up and moving around the house. Osei's home health nurse has not been out to seen him yet. He has only been taking 81 mg of aspirin. Advised to add an additional aspirin to his medication box to reach the recommended amount. Reviewed the following d/c instructions: -Your incision is closed with surgical glue and mesh tape which completely sealed and waterproof. It will fall off on its own in 3-4 weeks after the incision is healed. You do not need to cover it with another dressing. - You may shower with the dressing uncovered and allow water to run over it (it is waterproof) - Gently pat the dressing dry after showering, do not scrub. - Do not peel, scratch, or pick at the tape or glue. - Do not apply lotion, ointment, or other substance on the dressing as this may cause it to loosen. - Do not soak or immerse wound in water or bathtub for at least 4 weeks. -Please call the Orthopedic nurse triage line right away at [phone] if you have any of the below symptoms: - Unusual redness, heat, or drainage at the incision site. - A temperature of 101 degrees F(38.3 C) or higher. - Pain or swelling in your calf or leg that does not decrease with elevation. - A sudden or dramatic increase in pain -CALL 911 if you experience chest pain or difficulty breathing. -Any other questions or concerns regarding your surgery may also be directed to the [facility] Orthopedic Nurse Triage line at [phone]. Symptoms to monitor for health maintenance: Signs of infection, uncontrolled pain. Confirmed the below changes to medications, equipment or supplies: New Medications: - Acetaminophen: use first-line for pain management. Take scheduled three times daily for 2 weeks then change to as needed use thereafter. Do not exceed 3000mg/24hr. - Methocarbamol: as needed for muscle spasms or pain related to muscle tightness. Take lowest effective dose. May cause drowsiness. - Lidocaine patch: apply to area of pain. Remove 12hr after applying and wait until following day to re-apply (12hr on and 12hr off). Do not place directly over incision. Okay to cut patch and apply to either side of incision. - Oxycodone: for severe pain. Do NOT drink alcohol or drive while taking this medication. May cause constipation, nausea, or drowsiness. - Docusate/sennosides: to prevent constipation. Hold if experiencing loose stools or diarrhea. - Polyethylene glycol (MiraLAX): to prevent constipation. Mix powder in liquid according to package instructions. - Albuterol inhaler: as needed for immediate relief of shortness of breath breath/wheezing. Dose change: - Aspirin: to prevent blood clots following surgery. Take 162mg (two tablets) for 6 weeks (through 02/23/25) and then decrease to 81mg daily thereafter. Medications, equipment or supplies were obtained/purchased. Follow up Service Referrals: No follow up service needs identified at this time Future Appointments: Informed, discussed and confirmed next scheduled appointments 01/24/25: ortho f/u 01/25/25: PT asked if care cab was set up. Advised he call to check. He has the number saved in his phone. He reports his granddaughter will be coming to stay with him soon. Education Provided: see above Length of time spent: 17 minutes /kyle/ IRIS ZHU RN RN Signed: 01/15/2025 13:46 IRIS ZHU [facility]
--- OUTSIDE RECORDS SUMMARY | 2025-01-16 08:01 | XMS_ITS | Encounter Summary ---
Author Name [facility] Organization [facility] Address [address] [place] [address] Care Team Providers Care Laboratory Courier Name Role Phone ZENY MARTIN Primary Care [...] PART A Oct 18, 2013 PART A [id number] [phone] Mary ROSA PATIENT MEDICARE (WNR) MEDICARE (M) PART B Oct 18, 2013 PART B [id number] [phone] Mary ROSA PATIENT MEDICARE (WNR) MEDICARE (M) PART A Oct 18, 2013 PART A [id number] Mary ROSA PATIENT Selected Encounter This section includes the information on record at ID for the Encounter. Date/Time Encounter Type Encounter Description Reason Provider Source May 30, 2024 01:00 PM OFF/OP CNSLTJ NEW/EST LOW 30 ORTHO/JOINT SURG ICD-10-CM M75.121 Complete rotatr-cuff tear/ruptr of r shoulder, not trauma INES AZEVEDO Encounter Template Text not used by ID Assessments - Encounter Diagnoses This section includes the primary and secondary diagnoses documented for the Encounter. Date/Time Primary/Secondary Diagnosis Diagnosis Name Provider Source May 30, 2024 02:26 PM PRIMARY Complete rotatr-cuff tear/ruptr of r shoulder, not trauma INES AZEVEDO [facility] Plan of Treatment: Future Appointments (+ 6 months) and Future Tests (+/- 45 days) The Plan of Treatment section includes future care activities for the patient from all ID treatmentfacilities. This section includes future appointments and future orders which are active, pending or scheduled. Future Appointments This section includes appointments that were scheduled to occur 6 months from the date of the Encounter, up to a maximum of 20 appointments. The data comes from all ID treatment facilities. Appointment Date/Time Appointment Type Appointme nt Facility Name Jun 08, 2024 10:00 AM AMBULATORY - [place]ICINE [place] [facility] Jun 20, 2024 07:00 AM AMBULATORY - NONE [facility] [facility] Jun 21, 2024 01:00 PM AMBULATORY - SURG[place] [facility] Jun 21, 2024 02:15 PM AMBULATORY - NONE [place] [facility] Jun 29, 2024 07:00 AM AMBULATORY - NONE [facility] [facility] Jun 29, 2024 10:00 AM AMBULATORY - [place]ICINE [place] [facility] Jul 13, 2024 10:00 AM AMBULATORY - [place]ICINE [place] [facility] Jul 27, 2024 10:00 AM AMBULATORY - [place]ICINE [place] [facility] Aug 02, 2024 03:00 PM AMBULATORY - SURGERY [place] [facility] Aug 14, 2024 01:00 PM AMBULATORY - [place]GERY [place] [facility] Aug 18, 2024 02:00 PM AMBULATORY - NONE [place] [facility] Sep 07, 2024 10:00 AM AMBULATORY - [place]ICINE [place] [facility] Sep 18, 2024 02:00 PM AMBULATORY - SURGERY [place] [facility] Sep 19, 2024 10:30 AM AMBULATORY - SURGERY [place] [facility] Sep 22, 2024 02:40 PM AMBULATORY - SURGERY [place] [facility] Sep 22, 2024 03:00 PM AMBULATORY - SURGERY [place] [facility] Sep 25, 2024 11:15 AM AMBULATORY - SURGERY [place] [facility] Sep 25, 2024 12:15 PM [facility] [place] [facility] Sep 25, 2024 01:00 PM AMBULATORY - MEDICINE [facility] Sep 25, 2024 02:00 PM AMBULATORY - MEDICINE [facility] Social History: Smoking Status (Most current) and Tobacco Use (All prior to encounter date) This section includes the most current, and the historical, smoking and tobacco- related health factors from the ID facility where the Encounter took place. Current Smoking Status This section includes the most current smoking, or tobacco-related health factor, from the ID facility where the Encounter took place. Date/Time Current Smoking Status Comment Facil ity Nov 19, 2023 08:00 AM VA-TOBACCO FORMER USER [facility] Tobacco Use History This section includes a history of the smoking, or tobacco-related health factors, that were collected on or before the date of the Encounter. The data comes from the ID facility where the Encounter took place. Date/Time Smoking Status/Tobacco Use Comment F acility Nov 19, 2023 08:00 AM VA-TOBACCO QUIT 15 YRS OR MORE [facility] Jan 28, 2023 09:45 AM VA-TOBACCO FORMER USER [facility] Jan 28, 2023 09:45 AM VA-TOBACCO QUIT 15 YRS OR MORE [facility] Oct 30, 2021 03:00 PM VA-TOBACCO FORMER USER [facility] Oct 30, 2021 03:00 PM VA-TOBACCO QUIT 5 TO < 15 YRS [facility] Aug 17, 2019 11:38 AM VA-TOBACCO FORMER USER [facility] Aug 17, 2019 11:38 AM VA-TOBACCO QUIT 5 TO < 15 YRS [facility] Jan 06, 2018 02:39 PM FORMER TOBACCO USER 7Y OR GREATE R [facility] Jan 28, 2017 12:47 PM FORMER TOBACCO USER 7Y OR GREATE R [facility] Jan 21, 2016 03:04 PM FORMER TOBACCO USER 7Y OR GREATE R [facility] Apr 02, 2015 02:05 PM FORMER TOBACCO USER 7Y OR GREATE R [facility] March 01, 2014 09:10 AM FORMER TOBACCO USER 7Y OR GREATE R [facility] Sep 18, 2013 09:13 AM CDM COPD TOBACCO NON-USER [facility] May 28, 2013 11:05 AM LIFETIME NON-TOBACCO USER [facility] May 25, 2013 12:08 PM FORMER TOBACCO USER 7Y OR GREATE R [facility] Jun 18, 2009 09:48 AM FORMER TOBACCO USER 7Y OR JOE Penny [facility] Aug 24, 2008 10:10 AM FORMER TOBACCO USE >1Y <7Y [facility] Advance Directives: All historical and current Section Date Range: From patient's date of to the date document was created. This section includes ALL of a patient's completed or amended ID Advance and Rescinded Directives. The entries below indicate that a directive exists for the patient, but an actual copy is not included with this document. The data comes from all ID facilities. Date Advance Directives Provider Source March 08, 2023 ADVANCE DIRECTIVE SAMMYODILIA [facility] May 02, 2014 ADVANCE DIRECTIVE DISCUSSION QUEENIE SAENZ [facility] May 24, 2013 CLINICAL WARNING SHEYLARGALINDO [facility] Sep 21, 2011 ADVANCE DIRECTIVE JORDAN ZHANG [facility] Radiology Reports: +/- 30 days [...] the Encounter. The data comes from all ID treatment facilities. Date/Time Radiology Report Provider Source May 12, 2024 02:14 PM SHOULDER RIGHT 4V: KEENA ROSA [id number] -[id number] M Exm Date: MAY 12, 2024@14:14 Req Phys: ZENY MARTIN Loc: [facility] PACT JOYCE 4E (Req'g Loc) Img Loc: MAIN X-RAY Service: [place] [address] (Case [id number] COMPLETE) SHOULDER RIGHT 4V (RAD Detailed) CPT:64177 Proc Modifiers : RIGHT Reason for Study: r/o djd Clinical History: IS NOT under investigation for COVID-19 or is COVID-19 negative Chronic pain Responsible provider name and phone number to notify for critical findings if other than user placing the order and pager listed below: User placing orders pager: [phone] LAST CREATININE 0.9 (03/27/24) Report Status: Verified Date Reported: MAY 12, 2024 Date Verified: MAY 12, 2024 Lock Plater E-Sig: Report: SHOULDER RIGHT 4V HISTORY: r/o djd COMPARISON: Radiographs of the right shoulder dated 08/05/2023 TECHNIQUE: 4 view(s) of the right shoulder, submitted to the ID National Teleradiology Program (NTP) for interpretation. FINDINGS/ [...] calcific tendinitis. READING PHYSICIAN: Marino Daily MD -[phone] 05/12/2024 12:50 PDT [facility] National Teleradiology Program [phone] (For Medical Practitioner Use Only) Attention Patients / Veterans: If you have questions or concerns about these test results, please contact your ordering provider or primary care team. Primary Interpreting Staff: RADIOLOGY,OUTSIDE SERVICE, Staff Physician / RADIOLOGY,OUTSIDE SERVICE [facility] May 12, 2024 02:14 PM WRIST RIGHT 3 VIEW S OR MORE: KEENA ROSA [id number] -[id number] Ex Date: MAY 12, 2024@14:14 Req Phys: ZENY MARTIN Loc: [facility] PACT JOYCE 4E (Req'g Loc) Img Loc: MAIN X-RAY Service: [place] [address] (Case [id number] COMPLETE) WRIST RIGHT 3 VIEWS OR MORE (RAD Detailed) CPT:24893 Proc Modifiers : RIGHT Reason for Study: r/o djd Clinical History: [place] IS NOT under investigation for COVID-19 or is COVID-19 negative Pain, no trauma Responsible provider name and phone number to notify for critical findings if other than user placing the order and pager listed below: User placing orders pager: [phone] LAST CREATININE 0.9 (03/27/24) Report Status: Verified Date Reported: MAY 12, 2024 Date Verified: MAY 12, 2024 Lock Plater E-Sig: Report: WRIST RIGHT 3 VIEWS OR MORE HISTORY: r/o djd COMPARISON: Radiographs of the right wrist dated 07/05/2020 TECHNIQUE: 3 view(s) of the right wrist, submitted to the ID National Teleradiology Program (NTP) for interpretation. FINDINGS/ Impression: No fracture identified. Alignment is within normal limits. Severe degenerative changes of osteoarthritis involving the triscaphe joint. There is more mild degenerative change seen at the first carpometacarpal joint. READING PHYSICIAN: Marino Daily MD -[phone] 05/12/2024 12:52 PDT [facility] National Teleradiology Program [phone] (For Medical Practitioner Use Only) Attention Patients / Veterans: If you have questions or concerns about these test results, please contact your ordering provider or primary care team. Primary Interpreting Staff: RADIOLOGY,OUTSIDE SERVICE, Staff Physician / RADIOLOGY,OUTSIDE SERVICE [facility] Encounter Notes: All associated encounter notes This section contains the clinical notes associated to the Encounter. Date/Time Encounter Note(s) Provider Source May 30, 2024 02:13 PM ORTHOPEDIC SURGERY CONSULT: LOCAL TITLE: ORTHOPEDIC CONSULT STANDARD TITLE: ORTHOPEDIC SURGERY CONSULT DATE OF NOTE: MAY 30, 2024@14:13 ENTRY DATE: MAY 30, 2024@14:14:06 AUTHOR: INES AZEVEDO COSIGNER: URGENCY: STATUS: COMPLETED PATIENT NAME: KEENA ROSA SSN:[id number] DATE OF :[birth year] DATE OF SERVICE:05/30/24 13:00 CHIEF COMPLAINT: Right shoulder pain HISTORY OF PRESENT ILLNESS: 69-year-old gyrar-ktmr-vmuwcuxa male presenting today for evaluation of chronic right shoulder pain patient states that he has had discomfort for many years in his right shoulder. 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 Over the past year he has noted a change in his ability to do activities above shoulder height. He has pain that localizes over the lateral shoulder that is present only with activity, no pain with rest. He has been doing exercises to maintain mobility including wall walks, but this has not done anything to help change his pain so he presents today to discuss further treatment options. He is known to the orthopedic clinic status post a right total knee arthroplasty in 2022, and a left total hip arthroplasty in 2021. Patient does have multiple comorbidities including severe COPD for which he uses oxygen, diabetes with neuropathy, CAD h/o UT. He was considered high risk for the previous surgeries PAST MEDICAL HISTORY: Diabetic peripheral neuropathy (SCT 4247Sleep apnea (SCT 05331579) Severe chronic obstructive pulmonary disPersonal History of Tobacco Use (ICD-9- CM V15.82) Inguinial Hernia Repair (ICD-9-CM 799.9)Benign essential hypertension ([facility] [id number]) Erectile dysfunction (SCT 866249159) Osteoarthrosis involving the spine (ICD- 9-CM 715.98) Hyperlipidemia (SCT 83593680) Polyp of colon (SCT 69715613) Open Angle, Primary (ICD-9-CM 365.11) Morbid obesity ([facility] 335467051) History of adenomatous polyp of colon (SHypothyroidism ([facility] 10533442) Mild memory disturbance ([facility] 335531991) History of repair of umbilical hernia ([facility] 909661178) Chronic pain following right total knee Hip pain ([facility] 83611121) Iron deficiency anemia ([facility] 35963442) Diabetes mellitus type 2 without retinopathy ([facility] [id number]) Hypokalemia ([facility] 95703935) Obesity ([facility] 603714375) Ventricular bigeminy ([facility] 12070099) Acute non-ST segment elevation myocardial infarction ([facility] 280910909) PVC - premature ventricular contraction Coronary arteriosclerosis ([facility] 04720064) History of radiofrequency ablation operaExposure to potentially hazardous substance ([facility] [id number]) Exposure to potentially hazardous substa MEDICATIONS: Active Outpatient Medications (including Supplies): Active Outpatient Medications Status 1) ACCU-CHEK GUIDE (GLUCOSE) TEST STRIP USE 1 STRIP ACTIVE EVERY DAY 2) ASPIRIN 81MG EC TAB TAKE ONE TABLET BY MOUTH EVERY ACTIVE DAY TO PREVENT BLOOD CLOTS 3) BANDAGE TUBULAR ELASTIC SZ E C#879663 USE 1 BANDAGE ACTIVE TOPICALLY DIRECTED FOR EDEMA 4) BRIMONIDINE 0.2%/BRINZOLAMID 1% OPH SUSP INSTILL ONE ACTIVE DROP IN BOTH EYES TWO TIMES A DAY FOR GLAUCOMA 5) CATH,INTERM COUDE 14FR COLOPLAST #04276 USE 1 ACTIVE CATHETER TOPICALLY DIRECTED 6) DESONIDE 0.05% CREAM APPLY THIN LAYER TOPICALLY TWICE ACTIVE A DAY FOR RASH FOR 2 WEEKS OR UNTIL REDNESS AND ITCHING ARE IMPROVED 7) DOXYCYCLINE HYCLATE 100MG TAB TAKE ONE TABLET BY ACTIVE MOUTH TWICE A DAY FOR CELLULITIS 8) EMPAGLIFLOZIN 25MG TAB TAKE ONE TABLET BY MOUTH EVERY ACTIVE DAY 9) FUROSEMIDE 20MG TAB TAKE ONE TABLET BY MOUTH EVERY ACTIVE DAY 10) ISOSORBIDE MONONITRATE 60MG SA TAB TAKE ONE TABLET BY ACTIVE MOUTH EVERY DAY 11) KETOCONAZOLE 2% SHAMPOO SHAMPOO SCALP, AVALOS, CHEST ACTIVE TOPICALLY 3 TIMES WEEKLY *LATHER FOR 5 MINUTES THEN RINSE* 12) LATANOPROST 0.005% OPH SOLN INSTILL 1 DROP IN BOTH ACTIVE EYES AT BEDTIME FOR GLAUCOMA REFRIGERATE BOTTLE UNTIL OPENED. 13) LEVOTHYROXINE NA (SYNTHROID) 25MCG TAB TAKE ONE ACTIVE TABLET BY MOUTH EVERY DAY FOR THYROID - TAKE AT LEAST FOUR HOURS AWAY FROM FERROUS GLUCONATE 14) LIDOCAINE 5% OINT APPLY MODERATE AMOUNT TOPICALLY ACTIVE EVERY DAY NEEDED FOR PAIN 15) LORATADINE 10MG TAB TAKE ONE TABLET BY MOUTH EVERY ACTIVE DAY FOR ALLERGIES 16) METFORMIN HCL 1000MG TAB TAKE ONE AND ONE-HALF ACTIVE (S) TABLETS BY MOUTH EVERY MORNING AND TAKE ONE TABLET EVERY EVENING 17) METOPROLOL SUCCINATE 25MG SA TAB TAKE ONE-HALF TABLET ACTIVE BY MOUTH EVERY DAY 18) OMEPRAZOLE 20MG EC CAP TAKE ONE CAPSULE BY MOUTH ACTIVE EVERY DAY FOR HEARTBURN 19) ROSUVASTATIN CA 40MG TAB TAKE ONE TABLET BY MOUTH AT ACTIVE (S) BEDTIME 20) SEMAGLUTIDE 1MG/0.75ML INJ PEN 3ML INJECT 1MG UNDER ACTIVE THE SKIN EVERY WEEK ON WEDNESDAYS 21) TIOTROPIUM 18MCG INHL CAP 30 INHALE ONE CAPSULE IN ACTIVE INHALER BY INHALATION EVERY DAY FOR BREATHING 22) TOPIRAMATE 50MG TAB TAKE THREE TABLETS BY MOUTH TWICE ACTIVE A DAY TAKE AT NOON AND BEFORE DINNER TO REDUCE CRAVINGS. ALLERGIES: LISINOPRIL (February 18, 2009) LOSARTAN (February 18, 2009) AMLODIPINE (Jun 18, 2009) DEMEROL HYDROCHLORIDE INJECTION 50 MG/ML (March 04, 2014) GABAPENTIN (Jan 23, 2016) DULOXETINE (Feb 11, 2016) SOCIAL HISTORY: Occupation: Retired Marital Status/Living Situation: Lives alone in [place], enjoys gardening Tobacco Use: Quit over 20 years ago Alcohol: Currently sober Illicit Substance: PHYSICAL EXAM: VSD - Detailed Vitals Date Vital Measurement Qualifiers 05/25/2024 11:19 Wt lbs (kg)[BMI] 193.9 (87.95)[28*]Actual 05/12/2024 13:19 Temp F (C) 97.7 (36.5) Pulse 59 Respir 18 BP 112/75 Ht in (cm) 70 (177.80) Pain 6 POx (L/Min)(%) 96 BMI: 27.9 EXAM: Pleasant 69-year-old male who arrives using a [...] away from body. Distally CMS grossly intact IMAGING: X-rays were reviewed of the right shoulder which do show moderate inferior glenohumeral narrowing with inferior osteophyte formation. There may be a subtle superior subluxation of the humeral head. Otherwise there is a faint calcification noted superior to the greater tuberosity which may represent calcific deposit in tendon ASSESSMENT: Right shoulder pain PLAN: Patient does have some exam and x-ray findings that seem consistent with tears of the supraspinatus and infraspinatus. He has been trying to work on mobility of the shoulder, but has not made significant progress, and pain has remained consistent. We discussed that these findings are consistent with chronic rotator cuff tearing and that the options at this point would include use of medications such as Tylenol or topical agents. We discussed the role of injections with cortisone to help provide pain relief, but discussed that it may not improve function. The final option would be consideration of a reverse total shoulder arthroplasty. We discussed the recovery from a total shoulder, which is different than the other joints that he had replaced. We discussed that he still has higher risk for a cardiopulmonary event with the surgeries given his multiple comorbidities. After discussion, patient is open to trialing a injection. Informed consent was obtained through IMED consent. Patient wished to proceed. After formal timeout, the shoulder was prepped with chloroprep posteriorly, and injected with 1 cc depomedrol 40 mg/ml and 4 cc 0.25 % bupivicaine without complication. We will arrange a follow-up in 6 to 8 weeks to assess his response This note was entered using speech recognition software. Although I diligently review and edit my dictations, insensible words or phrases may be present. /kyle/ INES AZEVEDO PA-C PHYSICIAN SASH REPAIRER Signed: 05/30/2024 14:27 INES AZEVEDO [facility]
--- OUTSIDE RECORDS SUMMARY | 2025-01-16 08:01 | XMS_ITS | Encounter Summary ---
Author Name [facility] [place] Organization [facility] [place] Address [address] [place] [address] Care Team Providers Care Fur Stretcher Name Role Phone ZENY MARTIN Primary Care [...] PART A Oct 18, 2013 PART A [id number] [phone] Mary ROSA PATIENT MEDICARE (WNR) MEDICARE (M) PART B Oct 18, 2013 PART B [id number] [phone] Mary ROSA PATIENT MEDICARE (WNR) MEDICARE (M) PART A Oct 18, 2013 PART A [id number] [phone] Mary ROSA PATIENT Selected Encounter This section includes the information on record at [place] for the Encounter. Date/Time Encounter Type Encounter Description Reason Provider Source Jan 05, 2025 11:40 AM PH1 ASSMT&MGMT NQHP -20 TELEPHONE/SURGERY ICD-10-CM Z71.9 Counseling, unspecified SOCORRO AYERS IHBandar Encounter Template Text not used by [place] Assessments - Encounter Diagnoses This section includes the primary and secondary diagnoses documented for the Encounter. Date/Time Primary/Secondary Diagnosis Diagnosis Name Provider Source Jan 05, 2025 11:40 AM PRIMARY Counseling, unspecified SOCORRO AYERS [facility] Plan of Treatment: Future Appointments (+ 6 months) and Future Tests (+/- 45 days) The Plan of Treatment section includes future care activities for the patient from all [place] treatmentfacilities. This section includes future appointments and future orders which are active, pending or scheduled. Future Appointments This section includes appointments that were scheduled to occur 6 months from the date of the Encounter, up to a maximum of 20 appointments. The data comes from all [facility]. Appointment Date/Time Appointment Type Appointme nt Facility Name Jan 24, 2025 01:00 PM AMBULATORY - SURGERY [facility] Jan 25, 2025 10:00 AM AMBULATORY - MEDICINE [facility] Jan 25, 2025 11:00 AM AMBULATORY - REHAB MEDICIN E [facility] Feb 01, 2025 10:00 AM AMBULATORY - MEDICINE [facility] Feb 01, 2025 11:00 AM AMBULATORY - MEDICINE [facility] Feb 08, 2025 10:00 AM AMBULATORY - MEDICINE [facility] February 22, 2025 10:00 AM AMBULATORY - MEDICINE [facility] February 23, 2025 11:00 AM AMBULATORY - NONE [facility] February 23, 2025 11:30 AM AMBULATORY - SURGERY [facility] March 08, 2025 10:00 AM AMBULATORY - MEDICINE [facility] Apr 09, 2025 01:00 PM AMBULATORY - SURGERY [facility] Active, Pending, and Scheduled Orders This section includes a listing of several types of active, pending, and scheduled orders, including clinic medications orders, diagnostic test orders, procedure orders and consult orders; where the start date of the order is 45 days before the date of the Encounter or 45 days after the date of theEncounter. The data comes from all [facility]. Test Date/Time Test Type Test Details Facility Name Dec 11, 2024 11:04 AM Consult Order PT PHYSICA L THERAPY OUTPT ORTHO SURGERY [facility] Jan 10, 2025 12:00 AM Laboratory - Blood Bank Order TYPE & SCREEN - LAB BLOOD WC [facility] Jan 12, 2025 08:18 AM Consult Order [facility] Jan 22, 2025 12:00 AM Laboratory - Chemi stry Order HEMOGLOBIN A1C BLOOD SP ONCE [facility] Jan 22, 2025 12:00 AM Laboratory - Chemi stry Order BASIC METABOLIC PANEL+MG PLASMA SP [facility] Lab Results: +/- 30 days of the encounter This section includes the Chemistry and Hematology Lab Results on record with [place] for the patient. Radiology Reports and Pathology [...] Jan 11, 2025 12:51 PM Reporting Lab: [facility] [phone] Performing Lab: [facility] [address] FINGERSTICK GLUCOSE 246 mg/dL H 70-100 Jan 11, 2025 07:37 AM [facility] CBC Specimen Type: BLOOD No comment entered. Ordering Provider: ANDREA WOLF Report Released Date/Time: Jan 10, 2025 02:40 PM Reporting Lab: [facility] [phone] Performing Lab: [facility] [address] WBC 9.7 4.0-11.0 RBC 4.50 L 4.60-6.20 [...] Jan 10, 2025 02:40 PM Reporting Lab: [facility] [address] Performing Lab: [facility] [address] CREATININE 1.0 mg/dL 0.7-1.2 UREA NITROGEN 21 [...] Jan 11, 2025 07:41 AM Reporting Lab: [facility] [phone] Performing Lab: [facility] [address] FINGERSTICK GLUCOSE 220 mg/dL H 70-100 Jan 10, 2025 08:11 PM [facility] FINGERSTICK GLUCOSE Specimen Type: BLOOD Comment: Save Result Nurse Notified Ordering Provider: Lilli CHRISTENSEN Report Released Date/Time: Jan 10, 2025 08:36 PM Reporting Lab: [facility] [address] Performing Lab: [facility] [address] FINGERSTICK GLUCOSE 239 mg/dL H 70-100 Jan 10, 2025 04:30 PM [facility] FINGERSTICK GLUCOSE Specimen Type: BLOOD Comment: Save Result Nurse Notified Ordering Provider: Lilli CHRISTENSEN Report Released Date/Time: Jan 10, 2025 05:34 PM Reporting Lab: [facility] [phone] Performing Lab: [facility] [address] FINGERSTICK GLUCOSE 190 mg/dL H 70-100 Jan 10, 2025 02:40 PM [facility] FINGERSTICK GLUCOSE Specimen Type: BLOOD Comment: Save Result Nurse Notified Ordering Provider: JULIO,RAMC ES A Report Released Date/Time: Jan 10, 2025 03:01 PM Reporting Lab: [facility] [address] Performing Lab: [facility] [address] FINGERSTICK GLUCOSE 183 mg/dL H 70-100 Jan 10, 2025 08:35 AM [facility] ACT PART THROMBO TIME Specimen Type: PLASMA Comment: ~Draw on admission. Call IV team to draw on admission. Ordering Provider: BENIGNO KIM Report Released Date/Time: Jan 10, 2025 08:01 AM Reporting Lab: [facility] [address] Performing Lab: [facility] [address] APTT 31.4 s 25.1-36.5 Jan 10, 2025 08:35 AM [facility] PROTHROMBIN TIME/INR Specimen Type: PLASMA Comment: ~Draw on admission. Call IV team to draw on admission. Ordering Provider: BENIGNO KIM Report Released Date/Time: Jan 10, 2025 08:01 AM Reporting Lab: [facility] [address] Performing Lab: [facility] [address] .INR 0.9 0.8-1.1 .PT 10.9 s 9.4-12.5 Jan 10, 2025 08:35 AM [facility] CBC Specimen Type: BLOOD No comment entered. Ordering Provider: BENIGNO KIM Report Released Date/Time: Jan 10, 2025 08:01 AM Reporting Lab: [facility] [address] Performing Lab: [facility] [address] WBC 6.6 4.0-11.0 RBC 5.00 4.60-6.20 HGB [...] Jan 10, 2025 08:01 AM Reporting Lab: [facility] [address] Performing Lab: [facility] [address] CREATININE 0.9 mg/dL 0.7-1.2 UREA NITROGEN 19 mg/dL 8-26 GLUCOSE 151 mg/dL H 70-100 SODIUM 138 mmol/L 136-145 POTASSIUM 3.9 mmol/L 3.5-5.1 CHLORIDE 106 mmol/L 98-107 CO2 23 mmol/L 22-29 CALCIUM 9.3 mg/dL 8.4-10.2 MAGNESIUM 2.0 mg/dL 1.6-2.6 ANION GAP 9 mmol/L 5-15 .CREAT EGFR(CKD-EPI) >90 >60 Jan 10, 2025 08:35 AM [facility] FINGERSTICK GLUCOSE Specimen Type: BLOOD Comment: Save Result Ordering Provider: BENIGNO KIM A Report Released Date/Time: Jan 10, 2025 10:31 AM Reporting Lab: [facility] [address] Performing Lab: [facility] [address] FINGERSTICK GLUCOSE 155 mg/dL H 70-100 Dec 18, 2024 12:16 PM [facility] ALBUMIN Specimen Type: PLASMA No comment entered. Ordering Provider: BENIGNO KIM A Report Released Date/Time: Sep 27, 2024 10:57 AM Reporting Lab: [facility] [address] Performing Lab: [facility] [address] ALBUMIN 4.4 g/dL 3.5-5.0 Dec 18, 2024 [...] Sep 27, 2024 10:57 AM Reporting Lab: [facility] [address] Performing Lab: [facility] [address] HEMOGLOBIN A1C 7.1 H 4.0-6.0 Dec 18, 2024 12:16 PM [facility] PROTHROMBIN TIME/INR Specimen Type: PLASMA No comment entered. Ordering Provider: BENIGNO KMI A Report Released Date/Time: Sep 27, 2024 10:57 AM Reporting Lab: [facility] [address] Performing Lab: [facility] [address] .INR 0.9 0.8-1.1 .PT 10.3 s 9.4-12.5 Dec 18, 2024 12:16 PM [facility] BASIC METABOLIC PANEL+MG Specimen Type: PLASMA No comment entered. Ordering Provider: BENIGNO KIM A Report Released Date/Time: Sep 27, 2024 10:57 AM Reporting Lab: [facility] [address] Performing Lab: [facility] [address] CREATININE 1.0 mg/dL 0.7-1.2 UREA NITROGEN 19 [...] Sep 27, 2024 10:57 AM Reporting Lab: [facility] [address] Performing Lab: [facility] [address] WBC 9.5 4.0-11.0 RBC 5.05 4.60-6.20 HGB [...] this document. The data comes from all [facility]. Date Advance Directives Provider Source March 08, 2023 ADVANCE DIRECTIVE [facility] May 02, 2014 ADVANCE DIRECTIVE DISCUSSION QUEENIE SAENZ [facility] May 24, 2013 CLINICAL WARNING NARCISOGALINDO J [facility] Sep 21, 2011 ADVANCE DIRECTIVE JORDAN ZHANG [facility] Radiology Reports: +/- 30 days of the [...] the Encounter. The data comes from all [place] treatment facilities. Date/Time Radiology Report Provider Source Jan 10, 2025 07:58 AM SHOULDER RIGHT 2-3 VIEWS: MOEKEENAANTHONY PRYOR [id number] -[id number] M Exm Date: JAN 10, 2025@07:58 Req Phys: SHELLI KIM Loc: OR-PACU/01-10-2025@15:42 Img Loc: MAIN X-RAY Service: [place] [address] (Case [id number] COMPLETE) SHOULDER RIGHT 2-3 VIEWS (RAD Detailed) CPT:33273 Proc Modifiers : PORTABLE EXAM, OPERATING ROOM EXAM Reason for Study: right reverse TSA Clinical History: OR 6 shoulder rotator cuff arthropathy My pager number on record is: . I confirm that the pager number/cell phone number above is correct for reporting critical results. My correct contact # for critial results is:Valerio KIM [phone] Trainees only: Enter your staff provider's info here: LAST CREATININE 1.0 (12/18/24) Report Status: Verified Date Reported: JAN 10, 2025 Date Verified: JAN 10, 2025 Systems Testing Laboratory Technician E-Sig:/ES/MIRANDA BROOKE MD Report: EXAMINATION: SHOULDER RIGHT 2-3 VIEWS 01/10/2025 7:58 AM INDICATION: right reverse TSA Impression: Right reverse TSA. Components appear well seated. Report Sign Date/Time: 01/10/2025 3:39 PM Primary Interpreting Staff: MIRANDA BROOKE MD, RADIOLOGIST (Systems Testing Laboratory Technician) /RTS MIRANDA BROOKE [facility] Encounter Notes: All associated encounter notes This section contains the clinical notes associated to the Encounter. Date/Time Encounter Note(s) Provider Source Jan 05, 2025 11:40 AM SURGERY CASE MANAG ER NOTE: LOCAL TITLE: SURGERY COORDINATOR NOTE STANDARD TITLE: SURGERY PLAYERS CLUB REPRESENTATIVE NOTE DATE OF NOTE: JAN 05, 2025@11:40 ENTRY DATE: JAN 05, 2025@11:40:16 AUTHOR: MARIELENA AYERS EXP COSIGNER: URGENCY: STATUS: COMPLETED SUBJECT: pre-op- pre-surgery call surgery 01/10 Placed call to patient regarding ortho surgery, Right reverse TSA with Dr. Kim on 01/10 Informed patient he is 2nd surgical case and can report to 2 at:08:30 is a planned admission Reminded patient to have nothing to eat 8 hours prior to check in time, clear liquids ok up to 2 hrs prior to check in time and to do his two surgical scrubs. Discussed medications to take or hold prior to surgery per medical pre-op Preoperative Medication Management: Hold all multivitamins, herbal supplements, NSAIDS x 7 days prior to surgery Continue Aspirin 81 mg unless otherwise directed (Cardiac Stent) Hold Metformin day of surgery Hold Empagliflozin 3 days Prior to surgery (Diabetics) Hold Semaglutide x1 week preop (Last dose 12/27, will hold 01/03 & 01/10)-- confirmed he held dosage as directed Covid 19 screen/ illness screen negative - Mupirocin:reviewed instructions for use and informed justowriter operator he started today - Benzoyl Peroxide: reviewed instructions for use- start on wednesday - educated to Bring education folder on DOS - Equipment:O2 tank/ BiPAP, bring fitted shoulder immobilizer DOS -post op appts: 01/24/2025 13:00 [facility] ORTHO 2WK NURSE PROCEDURE 01/25/2025 10:00 [facility] MOVE [facility] [address] AQUA 01/25/2025 11:00 [facility] PT WYATT MONTANEZ 02/23 with x-rays and follow up with Dr. Kim denied any questions and verbalized understanding of all teaching. was urged to call back if he had any further questions /es/ MARIELENA AYERS RN REGISTERED STAFF NURSE Signed: 01/05/2025 11:48 MARIELENA AYERS [facility]
--- OUTSIDE RECORDS SUMMARY | 2025-01-16 08:01 | XMS_ITS ---
Author Organization [facility] Care Team Providers Care Scale Technician Name Role Phone Jyoti Duarte Unavailable Unavailable Raul Monae Unavailable Unavailable Allergies and adverse reactions Code CodeSystem Substance Reaction Severity StartDate Concern Status 07988 RXNORM Losartan Unknown 01/16/2022 active 45526 RXNORM Lisinopril Unknown 01/16/2022 active 94627 RXNORM Gabapentin Unknown 01/16/2022 active 37750 RXNORM DULoxetine Unknown 01/16/2022 active Demerol Unknown 01/16/2022 active 05734 RXNORM amLODIPine Unknown 01/16/2022 active Care Team Name Role Address Phone Organization Dates Raul Monae [address], [address], [place], [id number] [place] [address] (Office): [facility] 01/16/2022 - 01/30/2022 Jyoti Duarte Attending Physician [place] [id number] [facility] [address], [place], [address], [facility] (Office): : [facility] 01/16/2022 - 01/30/2022 Immunizations Immunization Status Vaccine Details Vaccine Code CodeSystem Date Notes TB 2 Step Mantoux Skin Test completed tuberculin skin test; unspecified formulation lotNumber: [id number] expiry: 02/06/2023 Mfg: Aplisol Given 0.1 ml [...] date: 01/16/2022 administere d date: 06/18/2009 PCV13, [id number] completed pneumococcal conjugate vaccine, 13 valent 133 [...] LNP, preservative free, 30 mcg/0.3mL dose Mfg: [employer] 208 CVX created date: 01/16/2022 administere d date: 12/15/2020 COVID-19 Vaccine dose 2 completed SARS-COV-2 (COVID-19) vaccine, mRNA, spike protein, LNP, preservative free, 30 mcg/0.3mL dose Mfg: [employer] 208 CVX created date: 01/16/2022 administere d [...] 1 AFTERCARE FOLLOWING JOINT REPLACEMENT SURGERY 01/16/[address] active 2 CHRONIC OBSTRUCTIVE PULMONARY DISEASE, UNSPECIFIED 01/16/[address] active 3 CHRONIC RESPIRATORY FAILURE, UNSPECIFIED WHETHER WITH HYPOXIA OR HYPERCAPNIA 01/16/[address] active 4 CONSTIPATION, UNSPECIFIED 01/16/[address] active 5 CORONARY ANGIOPLASTY STATUS 01/16/[address] active 6 DEPENDENCE ON OTHER ENABLING MACHINES AND DEVICES 01/16/[address] active 7 DEPENDENCE ON SUPPLEMENTAL OXYGEN 01/16/[address] active 8 EDEMA, UNSPECIFIED 01/16/[address] active 9 ESSENTIAL (PRIMARY) HYPERTENSION 01/16/[address] active 10 HYPERLIPIDEMIA, UNSPECIFIED 01/16/[address] active 11 HYPOTHYROIDISM, UNSPECIFIED 01/16/[address] active 12 INSOMNIA, UNSPECIFIED 01/16/[address] active 13 IRON DEFICIENCY ANEMIA, UNSPECIFIED 01/16/[address] active 14 OBESITY, UNSPECIFIED 01/16/[address] active 15 OBSTRUCTIVE SLEEP APNEA (ADULT) (PEDIATRIC) 01/16/[address] active 16 OLD MYOCARDIAL INFARCTION 01/16/[address] active 17 OTHER SEASONAL ALLERGIC RHINITIS 01/16/[address] active 18 PAIN IN LEFT SHOULDER 01/16/[address] active 19 PRESENCE OF LEFT ARTIFICIAL HIP JOINT 01/16/[address] active 20 PRIMARY OPEN-ANGLE GLAUCOMA, RIGHT EYE, STAGE UNSPECIFIED 01/16/[address] active 21 SPONDYLOSIS, UNSPECIFIED 01/16/[address] active 22 TYPE 2 DIABETES MELLITUS WITH DIABETIC NEUROPATHY, UNSPECIFIED 01/16/[address] active Reason for Referral No Reasons for Referral Entered Social History Social History Observation Description Start Date End Date Code Code System Current Smoking Status Tobacco smoking consumption unknown 490885456 SNOMED CT Sex Assigned At Male 1955 78443-8 [facility] Vital Signs Code Code System Vitals Name Values and Units Timing Information 8462-4 [facility] Blood Pressure-Diastolic Value=58 Un its=mmHg 01/30/2022 8480-6 [facility] Blood Pressure-Systolic Gzwgn=323 Un its=mmHg 01/30/2022 41571-7 [facility] O2 % BldC Oximetry Value=97.0 Units= % 01/30/2022 8310-5 [facility] Body Temperature Value=98.1 Units= F 01/30/2022 33395-3 [facility] Pain Level Value=0.0 01/30/2022 9279-1 [facility] Respiratory Rate Value=20.0 Units=/m in 01/29/2022 8867-4 [facility] Heart rate Value=58.0 Units=/min 33998-9 LOINC Weight Jbzgp=296.0 Units=Lbs 2339-0 [facility] Blood Sugar Zhikg=668.0 Units=mg/dL 01/20/2022 8302-2 [facility] Height Value=70.0 Units=Inches 01/19/2022
--- OUTSIDE RECORDS SUMMARY | 2025-01-16 08:02 | XMS_ITS | Encounter Summary ---
Author Name [facility] Organization [facility] Address [address] [place] [address] Care Team Providers Care Carbon Paper Interleafer Name Role Phone ZENY MARTIN Primary Care [...] PART B Oct 18, 2013 PART B [phone] Mary ROSA PATIENT MEDICARE (WNR) MEDICARE (M) PART A Oct 18, 2013 PART A [id number] Mary ROSA EONARD PATIENT MEDICARE (WNR) MEDICARE (M) PART A Oct 18, 2013 PART A [id number] Mary ROSA PATIENT Selected Encounter This section includes the information on record at [place] for the Encounter. Date/Time Encounter Type Encounter Description Reason Pro vider Source Jan 11, 2025 12:46 PM Outpatient Encounter CLINICAL PHARMACY E Encounter Template Text not used by [place] Plan of Treatment: Future Appointments (+ 6 [...] 20 appointments. The data comes from all [facility]. Appointment Date/Time Appointment Type Appointme nt Facility Name Jan 24, 2025 01:00 PM AMBULATORY - SURGERY [facility] Jan 25, 2025 10:00 AM AMBULATORY - MEDICINE [facility] Jan 25, 2025 11:00 AM AMBULATORY - REHAB MEDICIN E [facility] Feb 01, 2025 10:00 AM AMBULATORY - MEDICINE [facility] Feb 01, 2025 11:00 AM AMBULATORY - MEDICINE [facility] Feb 08, 2025 10:00 AM AMBULATORY - MEDICINE [facility] February 22, 2025 10:00 AM AMBULATORY - MEDICINE [facility] February 23, 2025 11:00 AM AMBULATORY - NONE [facility] February 23, 2025 11:30 AM AMBULATORY - SURGERY [facility] March 08, 2025 10:00 AM AMBULATORY - MEDICINE [facility] Apr 09, 2025 01:00 PM AMBULATORY - SURGERY [facility] Active, Pending, and Scheduled Orders This section includes a listing of several types of active, pending, and scheduled orders, including clinic medications orders, diagnostic test orders, procedure orders and consult orders; where the start date of the order is 45 days before the date of the Encounter or 45 days after the date of theEncounter. The data comes from all [facility]. Test Date/Time Test Type Test Details Facility Name Dec 11, 2024 11:04 AM Consult Order PT PHYSICA L THERAPY OUTPT ORTHO SURGERY Cons [facility] Jan 10, 2025 12:00 AM Laboratory - Blood Bank Order TYPE & SCREEN - LAB BLOOD WC [facility] Jan 12, 2025 08:18 AM Consult Order [facility] Jan 22, 2025 12:00 AM Laboratory - Chemi stry Order HEMOGLOBIN A1C BLOOD SP ONCE [facility] Jan 22, 2025 12:00 AM Laboratory - Chemi stry Order BASIC METABOLIC PANEL+MG PLASMA SP [facility] February 23, 2025 11:00 AM Imaging - General Radiology Order SHOULDER RIGHT 2-3 VIEWS RIGHT [facility] Lab Results: +/- 30 days of the encounter This section includes the Chemistry and Hematology Lab Results on record with [place] for the patient. Radiology Reports and Pathology Reports are provided separately, in subsequent sections. Lab Results This section contains the Chemistry/Hematology Results that were resulted 30 days before or 30 daysafter the date of the Encounter. Date/Time Source Result Type Result - Unit Interpretation Reference Range Comment Jan 11, 2025 12:21 PM [facility] FINGERSTICK GLUCOSE Specimen Type: BLOOD Comment: Save Result Nurse Notified Ordering Provider: ANDREA WOLF Report Released Date/Time: Jan 11, 2025 12:51 PM Reporting Lab: [facility] [id number] Performing Lab: [facility] [phone] FINGERSTICK GLUCOSE 246 mg/dL H 70-100 Jan 11, 2025 07:37 AM [facility] CBC Specimen Type: BLOOD No comment entered. Ordering Provider: ANDREA WOLF Report Released Date/Time: Jan 10, 2025 02:40 PM Reporting Lab: [facility] [phone] Performing Lab: [facility] [phone] WBC 9.7 4.0-11.0 RBC 4.50 L 4.60-6.20 HGB 12.9 g/dL L 13.5-17.9 HCT 42.3 41.0-54.0 MCV 94.0 fL 80.0-100.0 MCH 28.7 pg 27.0-33.0 MCHC 30.5 g/dL L 32.0-37.5 PLT 174 150-400 MPV 11.5 fL 9.1-13.0 RDW 13.3 11.5-14.5 Jan 11, 2025 07:37 AM [facility] BASIC METABOLIC PANEL+MG Specimen Type: PLASMA No comment entered. Ordering Provider: ANDREA WOLF Report Released Date/Time: Jan 10, 2025 02:40 PM Reporting Lab: [facility] [phone] Performing Lab: [facility] [phone] CREATININE 1.0 mg/dL 0.7-1.2 UREA NITROGEN 21 mg/dL 8-26 GLUCOSE 203 mg/dL H 70-100 SODIUM 136 mmol/L 136-145 POTASSIUM 4.1 mmol/L 3.5-5.1 CHLORIDE 102 mmol/L 98-107 CO2 23 mmol/L 22-29 CALCIUM 8.8 mg/dL 8.4-10.2 MAGNESIUM 2.0 mg/dL 1.6-2.6 ANION GAP 11 mmol/L 5-15 .CREAT EGFR(CKD-EPI) 80 >60 Jan 11, 2025 06:10 AM [facility] FINGERSTICK GLUCOSE Specimen Type: BLOOD Comment: Save Result Nurse Notified Ordering Provider: Lilli CHRISTENSEN Report Released Date/Time: Jan 11, 2025 07:41 AM Reporting Lab: [facility] [phone] Performing Lab: [facility] [phone] FINGERSTICK GLUCOSE 220 mg/dL H 70-100 Jan 10, 2025 08:11 PM [facility] FINGERSTICK GLUCOSE Specimen Type: BLOOD Comment: Save Result Nurse Notified Ordering Provider: Lilli CHRISTENSEN Report Released Date/Time: Jan 10, 2025 08:36 PM Reporting Lab: [facility] [phone] Performing Lab: [facility] [phone] FINGERSTICK GLUCOSE 239 mg/dL H -100 Jan 10, 2025 04:30 PM [facility] FINGERSTICK GLUCOSE Specimen Type: BLOOD Comment: Save Result Nurse Notified Ordering Provider: Lilli CHRISTENSEN Report Released Date/Time: Jan 10, 2025 05:34 PM Reporting Lab: [facility] [phone] Performing Lab: [facility] [phone] FINGERSTICK GLUCOSE 190 mg/dL H 70-100 Jan 10, 2025 02:40 PM [facility] FINGERSTICK GLUCOSE Specimen Type: BLOOD Comment: Save Result Nurse Notified Ordering Provider: BENIGNO KIM Report Released Date/Time: Jan 10, 2025 03:01 PM Reporting Lab: [facility] [phone] Performing Lab: [facility] [address] FINGERSTICK GLUCOSE 183 mg/dL H 70-100 Jan 10, 2025 08:35 AM [facility] ACT PART THROMBO TIME Specimen Type: PLASMA Comment: ~Draw on admission. Call IV team to draw on admission. Ordering Provider: BENIGNO KIM Report Released Date/Time: Jan 10, 2025 08:01 AM Reporting Lab: [facility] [phone] Performing Lab: [facility] [address] APTT 31.4 s 25.1-36.5 Jan 10, 2025 08:35 AM [facility] PROTHROMBIN TIME/INR Specimen Type: PLASMA Comment: ~Draw on admission. Call IV team to draw on admission. Ordering Provider: BENIGNO KIM Report Released Date/Time: Jan 10, 2025 08:01 AM Reporting Lab: [facility] [phone] Performing Lab: [facility] [phone] .INR 0.9 0.8-1.1 .PT 10.9 s 9.4-12.5 Jan 10, 2025 08:35 AM [facility] CBC Specimen Type: BLOOD No comment entered. Ordering Provider: BENIGNO KIM A Report Released Date/Time: Jan 10, 2025 08:01 AM Reporting Lab: [facility] [phone] Performing Lab: [facility] [phone] WBC 6.6 4.0-11.0 RBC 5.00 4.60-6.20 HGB 14.5 g/dL 13.5-17.9 HCT 46.1 41.0-54.0 MCV 92.2 fL 80.0-100.0 MCH 29.0 pg 27.0-33.0 MCHC 31.5 g/dL L 32.0-37.5 PLT 172 150-400 MPV 10.9 fL 9.1-13.0 RDW 13.7 11.5-14.5 Jan 10, 2025 08:35 AM [facility] FINGERSTICK GLUCOSE Specimen Type: BLOOD Comment: Save Result Ordering Provider: BENIGNO KIM A Report Released Date/Time: Jan 10, 2025 10:31 AM Reporting Lab: [facility] [phone] Performing Lab: [facility] [address] FINGERSTICK GLUCOSE 155 mg/dL H 70-100 Jan 10, 2025 08:35 AM [facility] BASIC METABOLIC PANEL+MG Specimen Type: PLASMA No comment entered. Ordering Provider: BENIGNO KIM Report Released Date/Time: Jan 10, 2025 08:01 AM Reporting Lab: [facility] [phone] Performing Lab: [facility] [phone] CREATININE 0.9 mg/dL 0.7-1.2 UREA NITROGEN 19 mg/dL 8-26 GLUCOSE 151 mg/dL H 70-100 SODIUM 138 mmol/L 136-145 POTASSIUM 3.9 mmol/L 3.5-5.1 CHLORIDE 106 mmol/L 98-107 CO2 23 mmol/L 22-29 CALCIUM 9.3 mg/dL 8.4-10.2 MAGNESIUM 2.0 mg/dL 1.6-2.6 ANION GAP 9 mmol/L 5-15 .CREAT EGFR(CKD-EPI) >90 >60 Dec 18, 2024 12:16 PM [facility] ALBUMIN Specimen Type: PLASMA No comment entered. Ordering Provider: BENIGNO KIM A Report Released Date/Time: Sep 27, 2024 10:57 AM Reporting Lab: [facility] [id number] Performing Lab: [facility] [address] ALBUMIN 4.4 g/dL 3.5-5.0 Dec 18, 2024 12:16 PM [facility] HEMOGLOBIN A1C Specimen Type: BLOOD Comment: [...] Sep 27, 2024 10:57 AM Reporting Lab: [facility] [phone] Performing Lab: [facility] [address] HEMOGLOBIN A1C 7.1 H 4.0-6.0 Dec 18, 2024 12:16 PM [facility] PROTHROMBIN TIME/INR Specimen Type: PLASMA No comment entered. Ordering Provider: BENIGNO KIM A Report Released Date/Time: Sep 27, 2024 10:57 AM Reporting Lab: [facility] [address] Performing Lab: [facility] [address] .INR 0.9 0.8-1.1 .PT 10.3 s 9.4-12.5 Dec 18, 2024 12:16 PM [facility] BASIC METABOLIC PANEL+MG Specimen Type: PLASMA No comment entered. Ordering Provider: BENIGNO KIM A Report Released Date/Time: Sep 27, 2024 10:57 AM Reporting Lab: [facility] [phone] Performing Lab: [facility] [address] CREATININE 1.0 mg/dL 0.7-1.2 UREA NITROGEN 19 mg/dL 8-26 GLUCOSE 118 mg/dL H 70-100 SODIUM 139 mmol/L 136-145 POTASSIUM 4.1 mmol/L 3.5-5.1 CHLORIDE 104 mmol/L 98-107 CO2 25 mmol/L 22-29 CALCIUM 9.6 mg/dL 8.4-10.2 MAGNESIUM 2.1 mg/dL 1.6-2.6 ANION GAP 10 mmol/L 5-15 .CREAT EGFR(CKD-EPI) 80 >60 Dec 18, 2024 12:16 PM [facility] CBC & DIFF Specimen Type: BLOOD Comment: Automated Differential Performed Ordering Provider: BENIGNO KIM Report Released Date/Time: Sep 27, 2024 10:57 AM Reporting Lab: [facility] [phone] Performing Lab: [facility] [address] WBC 9.5 4.0-11.0 RBC 5.05 4.60-6.20 HGB [...] Source Jan 11, 2025 09:30 AM 5 [facility] Jan 11, 2025 08:35 AM 8 [facility] Jan 11, 2025 08:31 AM 97.5 50 122/69 16 100 8 [facility] Jan 11, 2025 04:27 AM 6 [facility] Jan 11, 2025 12:28 AM 9 [facility] Social History: Smoking Status (Most current) and Tobacco Use (All prior to encounter date) This section includes the most current, and the historical, smoking and tobacco- related health factors from the [place] facility where the Encounter took place. Current Smoking Status This section includes the most current smoking, or tobacco-related health factor, from the [place] facility where the Encounter took place. Date/Time Current Smoking Status Comment Serina reece Nov 19, 2023 08:00 AM VA-TOBACCO FORMER USER [facility] Tobacco Use History This section includes a history of the smoking, or tobacco-related health factors, that were collected on or before the date of the Encounter. The data comes from the [place] facility where the Encounter took place. Date/Time Smoking Status/Tobacco Use Comment F [facility]flower Nov 19, 2023 08:00 AM VA-TOBACCO QUIT 15 YRS OR MORE [facility] Jan 28, 2023 09:45 AM VA-TOBACCO FORMER USER [facility] Jan 28, 2023 09:45 AM VA-TOBACCO QUIT 15 YRS OR MORE [facility] Oct 30, 2021 03:00 PM VA-TOBACCO FORMER USER [facility] Oct 30, 2021 03:00 PM VA-TOBACCO QUIT 5 TO < 15 YRS [facility] Aug 17, 2019 11:38 AM VA-TOBACCO FORMER USER [facility] Aug 17, 2019 11:38 AM VA-TOBACCO QUIT 5 TO < 15 YRS [facility] Jan 06, 2018 02:39 PM FORMER TOBACCO USER 7Y OR GREATE R [facility] Jan 28, 2017 12:47 PM FORMER TOBACCO USER 7Y OR GREATE R [facility] Jan 21, 2016 03:04 PM FORMER TOBACCO USER 7Y OR GREATE R [facility] Apr 02, 2015 02:05 PM FORMER TOBACCO USER 7Y OR GREATE R [facility] March 01, 2014 09:10 AM FORMER TOBACCO USER 7Y OR GREATE R [facility] Sep 18, 2013 09:13 AM CDM COPD TOBACCO NON-USER [facility] May 28, 2013 11:05 AM LIFETIME NON-TOBACCO USER [facility] May 25, 2013 12:08 PM FORMER TOBACCO USER 7Y OR GREATE R [facility] Jun 18, 2009 09:48 AM FORMER TOBACCO USER 7Y OR GREATE R [facility] Aug 24, 2008 10:10 AM FORMER TOBACCO USE >1Y <7Y [facility] Advance Directives: All historical and current Section Date Range: From patient's date of to the date document was created. This section includes ALL of a patient's completed or amended [place] Advance and Rescinded Directives. The entries below indicate that a directive exists for the patient, but an actual copy is not included with this document. The data comes from all [facility]. Date Advance Directives Provider Source March 08, 2023 ADVANCE DIRECTIVE ODILIA CHRISTIANSON [facility] May 02, 2014 ADVANCE DIRECTIVE DISCUSSION QUEENIE SAENZ [facility] May 24, 2013 CLINICAL WARNING GALINDO STUART [facility] Sep 21, 2011 ADVANCE DIRECTIVE JORDAN ZHANG [facility] Radiology Reports: +/- 30 days of the [...] the Encounter. The data comes from all [place] treatment facilities. Date/Time Radiology Report Provider Source Jan 10, 2025 07:58 AM SHOULDER RIGHT 2-3 VIEWS: KEENA ROSA [id number] -[id number] M Exm Date: JAN 10, 2025@07:58 Req Phys: SHELLI KIM Loc: OR-PACU/01-10-2025@15:42 Img Loc: MAIN X-RAY Service: [place] [address] (Case [id number] COMPLETE) SHOULDER RIGHT 2-3 VIEWS (RAD Detailed) CPT:47252 Proc Modifiers : PORTABLE EXAM, OPERATING ROOM EXAM Reason for Study: right reverse TSA Clinical History: OR 6 shoulder rotator cuff arthropathy My pager number on record is: . I confirm that the pager number/cell phone number above is correct for reporting critical results. My correct contact # for critial results is:Valerio KIM [phone] Trainees only: Enter your staff provider's info here: LAST CREATININE 1.0 (12/18/24) Report Status: Verified Date Reported: JAN 10, 2025 Date Verified: JAN 10, 2025 [employer] E-Sig:/ES/MIRANDA BROOKE MD Report: EXAMINATION: SHOULDER RIGHT 2-3 VIEWS 01/10/2025 7:58 AM INDICATION: right reverse TSA Impression: Right reverse TSA. Components appear well seated. Report Sign Date/Time: 01/10/2025 3:39 PM Primary Interpreting Staff: MIRANDA BROOKE MD, RADIOLOGIST ([employer]) /RTS MIRANDA BROOKE [facility] Encounter Notes: All associated encounter notes This section contains the clinical notes associated to the Encounter. Date/Time Encounter Note(s) Provider Source Jan 11, 2025 12:46 PM PHARMACY EDUCATION NOTE: LOCAL TITLE: EDUCATION PHARMACY MED INSTRUCTION/RECONCILIATION STANDARD TITLE: PHARMACY EDUCATION NOTE DATE OF NOTE: JAN 11, 2025@12:46 ENTRY DATE: JAN 11, 2025@12:46:12 AUTHOR: BRENDA FREEMAN EXP COSIGNER: URGENCY: STATUS: COMPLETED MEDICATION DISCHARGE EDUCATION LEARNING NEEDS/OBJECTIVES Participant(s) indicates readiness to learn and has been instructed on indications, side effects, directions for use and given a list of medications. Participant(s) will receive medication information sheets for medications filled. Education included discussion of the following: New Medications: - Acetaminophen: use first-line for [...] loose stools or diarrhea. - Polyethylene glycol (Miralax): to prevent constipation. Mix powder in liquid according to package instructions. - Albuterol inhaler: as needed for immediate relief of shortness of breath breath/wheezing. Dose change: - Aspirin: to prevent blood clots following surgery. Take 162mg (two tablets) for 6 weeks (through 02/23/25) and then decrease to 81mg daily thereafter. Other: - Okay to resume empagliflozin and metformin this evening. Resume furosemide tomorrow morning. Okay to resume all other home medications. Storage, handling, and proper disposal of medication(s) discussed. Pharmacy refill process. Tobacco Cessation Discharge Plan Not Applicable Active Outpatient Medications (including Supplies): Outpatient Medications Status 1) ACETAMINOPHEN 500MG TAB TAKE TWO TABLETS BY MOUTH THREE ACTIVE TIMES A DAY * TAKE SCHEDULED FOR 2 WEEKS, THEN NEEDED . NO MORE THAN 3000MG PER DAY Indication: FOR PAIN 2) ALBUTEROL 90MCG (CFC-F) 200D ORAL INHL INHALE 2 PUFFS BY ACTIVE MOUTH EVERY 4 HOURS NEEDED OR WHEEZING Indication: FOR SHORTNESS OF BREATH 3) ASPIRIN 81MG EC TAB TAKE ONE TABLET BY MOUTH EVERY DAY ACTIVE Indication: TO PREVENT BLOOD CLOTS 5) BRIMONIDINE 0.2%/BRINZOLAMID 1% OPH SUSP INSTILL ONE DROP IN ACTIVE BOTH EYES TWO TIMES A DAY Indication: FOR GLAUCOMA 6) CATH,INTERM COUDE 14FR COLOPLAST #[id number] USE 1 CATHETER ACTIVE TOPICALLY DIRECTED 7) CHOLECALCIF 25MCG (D3-1,000UNIT) TAB TAKE ONE TABLET BY ACTIVE MOUTH EVERY DAY 8) DICLOFENAC NA 1% TOP GEL APPLY 4 GRAMS TOPICALLY FOUR TIMES ACTIVE A DAY NEEDED TO BILAT WRIST FOR ARTHRITS PAIN DO NOT EXCEED A TOTAL MAX OF 32-GRAMS PER DAY Indication: TO AFFECTED AREA FOR PAIN 9) DOCUSATE NA 50MG/SENNOSIDES 8.6MG TAB TAKE 2 TABLETS BY ACTIVE MOUTH TWICE A DAY *HOLD FOR LOOSE STOOLS* Indication: FOR CONSTIPATION 10) EMPAGLIFLOZIN 25MG TAB TAKE ONE TABLET BY MOUTH EVERY DAY ACTIVE 11) FERROUS GLUCONATE 324MG TAB TAKE ONE TABLET BY MOUTH EVERY ACTIVE DAY AT LEAST 4 HOURS AWAY FROM LEVOTHYROXINE Indication: FOR IRON SUPPLEMENT 12) FUROSEMIDE 20MG TAB TAKE ONE TABLET BY MOUTH EVERY DAY ACTIVE 13) ISOSORBIDE MONONITRATE 60MG SA TAB TAKE ONE TABLET BY MOUTH ACTIVE EVERY DAY 14) KETOCONAZOLE 2% SHAMPOO SHAMPOO SCALP, AVALOS, CHEST ACTIVE TOPICALLY 3 TIMES WEEKLY *LATHER FOR 5 MINUTES THEN RINSE* 15) LATANOPROST 0.005% OPH SOLN INSTILL 1 DROP IN BOTH EYES AT ACTIVE BEDTIME REFRIGERATE BOTTLE UNTIL OPENED. Indication: FOR GLAUCOMA 16) LEVOTHYROXINE NA (SYNTHROID) 25MCG TAB TAKE ONE TABLET BY ACTIVE MOUTH EVERY DAY FOR THYROID - TAKE AT LEAST FOUR HOURS AWAY FROM FERROUS GLUCONATE 17) LIDOCAINE 5% OINT APPLY MODERATE AMOUNT TOPICALLY EVERY DAY ACTIVE NEEDED Indication: FOR PAIN 18) LIDOCAINE 5% PATCH APPLY 1 PATCH TOPICALLY EVERY DAY ACTIVE DIRECTED FOR PAIN. MAY CUT IN HALF AND APPLY TO BOTH SIDES OF INCISION. DO NOT APPLY DIRECTLY OVER INCISION. WEAR PATCH FOR 12 HOURS, THEN REMOVE FOR 12 HOURS BEFORE NEW PATCH IS APPLIED. Indication: FOR UP TO 12 HOURS FOR PAIN 19) LORATADINE 10MG TAB TAKE ONE TABLET BY MOUTH EVERY DAY FOR ACTIVE ALLERGIES 20) METFORMIN HCL 1000MG TAB TAKE ONE AND ONE-HALF TABLETS BY ACTIVE MOUTH EVERY MORNING AND TAKE ONE TABLET EVERY EVENING 21) METHOCARBAMOL 500MG TAB TAKE ONE TO TWO TABLETS BY MOUTH ACTIVE EVERY 6 HOURS NEEDED RELATED TO MUSCLE SPASM AND/OR TIGHTNESS. TAKE LOWEST EFFECTIVE DOSE. ONE TABLET IS EQUAL TO 500MG Indication: FOR PAIN 22) METOPROLOL SUCCINATE 25MG SA TAB TAKE ONE-HALF TABLET BY ACTIVE MOUTH EVERY DAY 23) OMEPRAZOLE 20MG EC CAP TAKE ONE CAPSULE BY MOUTH EVERY DAY ACTIVE Indication: FOR HEARTBURN 24) OXYCODONE HCL 5MG TAB TAKE ONE TO TWO TABLETS BY MOUTH EVERY ACTIVE 4 HOURS NEEDED NOT CONTROLLED WITH NON-OPIOID REGIMEN. ATTEMPT TO USE LOWEST EFFECTIVE DOSE. ONE TABLET IS EQUAL TO 5MG Indication: FOR PAIN 25) PEG 400 0.4%/PROP GLYCOL 0.3% OPH SOLN INSTILL 1 DROP IN ACTIVE BOTH EYES FOUR TIMES A DAY NEEDED Indication: FOR DRY EYES 26) POLYETHYLENE GLYCOL 3350 ORAL PWDR TAKE 17 GRAMS BY MOUTH ACTIVE EVERY DAY . MIX WITH 8OZ OF JUICE OR WATER *HOLD FOR LOOSE STOOLS Indication: FOR CONSTIPATION 27) ROSUVASTATIN CA 40MG TAB TAKE ONE TABLET BY MOUTH AT BEDTIME ACTIVE 28) SEMAGLUTIDE 1MG/0.75ML INJ PEN 3ML INJECT 1MG UNDER THE SKIN ACTIVE ONCE WEEKLY ON WEDNESDAYS Indication: FOR DIABETES 29) TACROLIMUS 0.1% TOP OINT APPLY SMALL AMOUNT TOPICALLY TWICE ACTIVE A DAY Indication: FOR DERMATITIS 30) TOPIRAMATE 50MG TAB TAKE THREE TABLETS BY MOUTH TWICE A DAY ACTIVE TAKE AT NOON AND BEFORE DINNER TO REDUCE CRAVINGS. 31) VANICREAM TOP CREAM APPLY THIN LAYER TOPICALLY EVERY DAY ACTIVE Indication: FOR DRY SKIN NON-VA Meds 32) ASPIRIN EC TAB, TAKE 162MG PO QDAY WITH FOOD FOR 6 WEEKS (THROUGH 02/23/25), THEN DECREASE BACK TO 81MG DAILY THEREAFTER. = PARTICIPANTS: Patient TEACHING STRATEGY: Face to Face, Medication information sheets and list of medications READINESS TO LEARN No barriers identified PATIENT/FAMILY RESPONSE (OUTCOME): Verbalizes critical information about the topic FOLLOW-UP RECOMMENDED: As directed by discharging provider /kyle/ BRENDA FREEMAN [employer] Signed: 01/11/2025 12:50 Receipt Acknowledged By: 01/12/2025 14:34 /kyle/ Michelle Rosa, DNP, CLAY PROCESSING LABOURER, AGACNP-BC DNP, BRENDA Kelly [facility]
--- OUTSIDE RECORDS SUMMARY | 2025-01-16 08:03 | XMS_ITS | Encounter Summary ---
Author Name [facility] [place] Organization [facility] [place] Address [address] [place] [address] Care Team Providers Care High Raw Sugar Boiler Name Role Phone ZENY MARTIN Primary Care [...] PART A Oct 18, 2013 PART A [id number] [phone] Mary ROSA PATIENT MEDICARE (WNR) MEDICARE (M) PART B Oct 18, 2013 PART B [id number] [phone] Mary ROSA EOMIRELAD PATIENT MEDICARE (WNR) MEDICARE (M) PART A Oct 18, 2013 PART A [id number] Mary ROSA PATIENT Selected Encounter This section includes the information on record at [place] for the Encounter. Date/Time Encounter Type Encounter Description Reason Pro vider Source Dec 19, 2024 11:00 AM Outpatient Encounter OCCUPATIONAL THERAPY IHE Encounter Template Text not used by VA [...] 20 appointments. The data comes from all [facility]. Appointment Date/Time Appointment Type Appointme nt Facility Name Dec 27, 2024 07:00 AM AMBULATORY - NONE [facility] Dec 28, 2024 10:00 AM AMBULATORY - MEDICINE [facility] Dec 28, 2024 11:00 AM AMBULATORY - REHAB MEDICIN [facility] Jan 01, 2025 01:30 PM AMBULATORY - REHAB MEDICIN [facility] Jan 24, 2025 01:00 PM AMBULATORY - SURGERY [facility] Jan 25, 2025 10:00 AM AMBULATORY - MEDICINE [facility] Jan 25, 2025 11:00 AM AMBULATORY - REHAB [facility] Feb 01, 2025 10:00 AM AMBULATORY - MEDICINE [facility] Feb 01, 2025 11:00 AM AMBULATORY - MEDICINE [facility] Feb 08, 2025 10:00 AM AMBULATORY - MEDICINE [facility] February 22, 2025 10:00 AM AMBULATORY - MEDICINE [facility] February 23, 2025 11:00 AM AMBULATORY - NONE [facility] February 23, 2025 11:30 AM AMBULATORY - SURGERY [facility] March 08, 2025 10:00 AM AMBULATORY - MEDICINE [facility] Apr 09, 2025 01:00 PM AMBULATORY - SURGERY [facility] Active, Pending, and Scheduled Orders This section includes a listing of several types of active, pending, and scheduled orders, including clinic medications orders, diagnostic test orders, procedure orders and consult orders; where the start date of the order is 45 days before the date of the Encounter or 45 days after the date of theEncounter. The data comes from all [facility]. Test Date/Time Test Type Test Details Facility Name Dec 11, 2024 11:04 AM Consult Order PT PHYSICA L THERAPY OUTPT ORTHO SURGERY Cons Occupational Health Physiotherapist's Choice [facility] Jan 10, 2025 12:00 AM Laboratory - Blood Bank Order TYPE & SCREEN - LAB BLOOD WC [facility] Jan 12, 2025 08:18 AM Consult Order CRITICAL ACCESS [facility] Cons Occupational Health Physiotherapist's Choice [facility] Jan 22, 2025 12:00 AM Laboratory - Chemi stry Order HEMOGLOBIN A1C BLOOD SP ONCE [facility] Jan 22, 2025 12:00 AM Laboratory - Chemi stry Order BASIC METABOLIC PANEL+MG PLASMA SP [facility] Lab Results: +/- 30 days of the encounter This section includes the Chemistry and Hematology Lab Results on record with [place] for the patient. Radiology Reports and Pathology Reports are provided separately, in subsequent sections. Lab Results This section contains the Chemistry/Hematology Results that were resulted 30 days before or 30 daysafter the date of the Encounter. Date/Time Source Result Type Result - Unit Interpretation Reference Range Comment Jan 11, 2025 12:21 PM [facility] FINGERSTICK GLUCOSE Specimen Type: BLOOD Comment: Save Result Nurse Notified Ordering Provider: ANDREA WOLF Report Released Date/Time: Jan 11, 2025 12:51 PM Reporting Lab: [facility] [phone] Performing Lab: [facility] [phone] FINGERSTICK GLUCOSE 246 mg/dL H 70-100 Jan 11, 2025 07:37 AM [facility] CBC Specimen Type: BLOOD No comment entered. Ordering Provider: ANDREA WOLF Report Released Date/Time: Jan 10, 2025 02:40 PM Reporting Lab: [facility] [phone] Performing Lab: [facility] [phone] WBC 9.7 4.0-11.0 RBC 4.50 L 4.60-6.20 HGB 12.9 g/dL L 13.5-17.9 HCT 42.3 41.0-54.0 MCV 94.0 fL 80.0-100.0 MCH 28.7 pg 27.0-33.0 MCHC 30.5 g/dL L 32.0-37.5 PLT 174 150-400 MPV 11.5 fL 9.1-13.0 RDW 13.3 11.5-14.5 Jan 11, 2025 07:37 AM [facility] BASIC METABOLIC PANEL+MG Specimen Type: PLASMA No comment entered. Ordering Provider: ANDREA WOLF Report Released Date/Time: Jan 10, 2025 02:40 PM Reporting Lab: [facility] [phone] Performing Lab: [facility] [phone] CREATININE 1.0 mg/dL 0.7-1.2 UREA NITROGEN 21 mg/dL 8-26 GLUCOSE 203 mg/dL H 70-100 SODIUM 136 mmol/L 136-145 POTASSIUM 4.1 mmol/L 3.5-5.1 CHLORIDE 102 mmol/L 98-107 CO2 23 mmol/L 22-29 CALCIUM 8.8 mg/dL 8.4-10.2 MAGNESIUM 2.0 mg/dL 1.6-2.6 ANION GAP 11 mmol/L 5-15 .CREAT EGFR(CKD-EPI) 80 >60 Jan 11, 2025 06:10 AM [facility] FINGERSTICK GLUCOSE Specimen Type: BLOOD Comment: Save Result Nurse Notified Ordering Provider: Lilli CHRISTENSEN Report Released Date/Time: Jan 11, 2025 07:41 AM Reporting Lab: [facility] [phone] Performing Lab: [facility] [phone] FINGERSTICK GLUCOSE 220 mg/dL H 70-100 Jan 10, 2025 08:11 PM [facility] FINGERSTICK GLUCOSE Specimen Type: BLOOD Comment: Save Result Nurse Notified Ordering Provider: Lilli CHRISTENSEN Report Released Date/Time: Jan 10, 2025 08:36 PM Reporting Lab: [facility] [phone] Performing Lab: [facility] [phone] FINGERSTICK GLUCOSE 239 mg/dL H 70-100 Jan 10, 2025 04:30 PM [facility] FINGERSTICK GLUCOSE Specimen Type: BLOOD Comment: Save Result Nurse Notified Ordering Provider: Lilli CHRISTENSEN Report Released Date/Time: Jan 10, 2025 05:34 PM Reporting Lab: [facility] [phone] Performing Lab: [facility] [address] FINGERSTICK GLUCOSE 190 mg/dL H 70-100 Jan 10, 2025 02:40 PM [facility] FINGERSTICK GLUCOSE Specimen Type: BLOOD Comment: Save Result Nurse Notified Ordering Provider: BENIGNO KIM Report Released Date/Time: Jan 10, 2025 03:01 PM Reporting Lab: [facility] [phone] Performing Lab: [facility] [phone] FINGERSTICK GLUCOSE 183 mg/dL H 70-100 Jan 10, 2025 08:35 AM [facility] PROTHROMBIN TIME/INR Specimen Type: PLASMA Comment: ~Draw on admission. Call IV team to draw on admission. Ordering Provider: BENIGNO KIM A Report Released Date/Time: Jan 10, 2025 08:01 AM Reporting Lab: [facility] [phone] Performing Lab: [facility] [phone] .INR 0.9 0.8-1.1 .PT 10.9 s 9.4-12.5 Jan 10, 2025 08:35 AM [facility] CBC Specimen Type: BLOOD No comment entered. Ordering Provider: BENIGNO KIM A Report Released Date/Time: Jan 10, 2025 08:01 AM Reporting Lab: [facility] [phone] Performing Lab: [facility] [phone] WBC 6.6 4.0-11.0 RBC 5.00 4.60-6.20 HGB 14.5 g/dL 13.5-17.9 HCT 46.1 41.0-54.0 MCV 92.2 fL 80.0-100.0 MCH 29.0 pg 27.0-33.0 MCHC 31.5 g/dL L 32.0-37.5 PLT 172 150-400 MPV 10.9 fL 9.1-13.0 RDW 13.7 11.5-14.5 Jan 10, 2025 08:35 AM [facility] ACT PART THROMBO TIME Specimen Type: PLASMA Comment: ~Draw on admission. Call IV team to draw on admission. Ordering Provider: BENIGNO KIM A Report Released Date/Time: Jan 10, 2025 08:01 AM Reporting Lab: [facility] [phone] Performing Lab: [facility] [phone] APTT 31.4 s 25.1-36.5 Jan 10, 2025 08:35 AM [facility] BASIC METABOLIC PANEL+MG Specimen Type: PLASMA No comment entered. Ordering Provider: BENIGNO KIM A Report Released Date/Time: Jan 10, 2025 08:01 AM Reporting Lab: [facility] [phone] Performing Lab: [facility] [phone] CREATININE 0.9 mg/dL 0.7-1.2 UREA NITROGEN 19 mg/dL 8-26 GLUCOSE 151 mg/dL H 70-100 SODIUM 138 mmol/L 136-145 POTASSIUM 3.9 mmol/L 3.5-5.1 CHLORIDE 106 mmol/L 98-107 CO2 23 mmol/L 22-29 CALCIUM 9.3 mg/dL 8.4-10.2 MAGNESIUM 2.0 mg/dL 1.6-2.6 ANION GAP 9 mmol/L 5-15 .CREAT EGFR(CKD-EPI) >90 >60 Jan 10, 2025 08:35 AM [facility] FINGERSTICK GLUCOSE Specimen Type: BLOOD Comment: Save Result Ordering Provider: BENIGNO KIM Report Released Date/Time: Jan 10, 2025 10:31 AM Reporting Lab: [facility] [phone] Performing Lab: [facility] [phone] FINGERSTICK GLUCOSE 155 mg/dL H 70-100 Dec 18, 2024 12:16 PM [facility] ALBUMIN Specimen Type: PLASMA No comment entered. Ordering Provider: BENIGNO KIM Report Released Date/Time: Sep 27, 2024 10:57 AM Reporting Lab: [facility] [phone] Performing Lab: [facility] [phone] ALBUMIN 4.4 g/dL 3.5-5.0 Dec 18, 2024 12:16 PM [facility] HEMOGLOBIN A1C Specimen Type: BLOOD Comment: [...] 27, 2024 10:57 AM Reporting Lab: [facility] [phone] Performing Lab: [facility] [phone] HEMOGLOBIN A1C 7.1 H 4.0-6.0 Dec 18, 2024 12:16 PM [facility] PROTHROMBIN TIME/INR Specimen Type: PLASMA No comment entered. Ordering Provider: BENIGNO KIM Report Released Date/Time: Sep 27, 2024 10:57 AM Reporting Lab: [facility] [phone] Performing Lab: [facility] [address] .INR 0.9 0.8-1.1 .PT 10.3 s 9.4-12.5 Dec 18, 2024 12:16 PM [facility] BASIC METABOLIC PANEL+MG Specimen Type: PLASMA No comment entered. Ordering Provider: BENIGNO KIM A Report Released Date/Time: Sep 27, 2024 10:57 AM Reporting Lab: [facility] [phone] Performing Lab: [facility] [phone] CREATININE 1.0 mg/dL 0.7-1.2 UREA NITROGEN 19 mg/dL 8-26 GLUCOSE 118 mg/dL H 70-100 SODIUM 139 mmol/L 136-145 POTASSIUM 4.1 mmol/L 3.5-5.1 CHLORIDE 104 mmol/L 98-107 CO2 25 mmol/L 22-29 CALCIUM 9.6 mg/dL 8.4-10.2 MAGNESIUM 2.1 mg/dL 1.6-2.6 ANION GAP 10 mmol/L 5-15 .CREAT EGFR(CKD-EPI) 80 >60 Dec 18, 2024 12:16 PM [facility] CBC & DIFF Specimen Type: BLOOD Comment: Automated Differential Performed Ordering Provider: BENIGNO KIM A Report Released Date/Time: Sep 27, 2024 10:57 AM Reporting Lab: [facility] [phone] Performing Lab: [facility] [phone] WBC 9.5 4.0-11.0 RBC 5.05 4.60-6.20 HGB [...] and tobacco- related health factors from the [place] facility where the Encounter took place. Current Smoking Status This section includes the most current smoking, or tobacco-related health factor, from the [place] facility where the Encounter took place. Date/Time Current Smoking Status Comment Facil ity Nov 19, 2023 08:00 AM VA-TOBACCO FORMER USER [facility] Tobacco Use History This section includes a history of the smoking, or tobacco-related health factors, that were collected on or before the date of the Encounter. The data comes from the [place] facility where the Encounter took place. Date/Time Smoking Status/Tobacco Use Comment F acility Nov 19, 2023 08:00 AM VA-TOBACCO QUIT 15 YRS OR MORE [facility] Jan 28, 2023 09:45 AM VA-TOBACCO FORMER USER [facility] Jan 28, 2023 09:45 AM VA-TOBACCO QUIT 15 YRS OR MORE [facility] Oct 30, 2021 03:00 PM VA-TOBACCO FORMER USER [facility] Oct 30, 2021 03:00 PM VA-TOBACCO QUIT 5 TO < 15 YRS [facility] Aug 17, 2019 11:38 AM VA-TOBACCO FORMER USER [facility] Aug 17, 2019 11:38 AM VA-TOBACCO QUIT 5 TO < 15 YRS [facility] Jan 06, 2018 02:39 PM FORMER TOBACCO USER 7Y OR GREATE R [facility] Jan 28, 2017 12:47 PM FORMER TOBACCO USER 7Y OR GREATE R [facility] Jan 21, 2016 03:04 PM FORMER TOBACCO USER 7Y OR GREATE R [facility] Apr 02, 2015 02:05 PM FORMER TOBACCO USER 7Y OR GREATE R [facility] March 01, 2014 09:10 AM FORMER TOBACCO USER 7Y OR GREATE R [facility] Sep 18, 2013 09:13 AM CDM COPD TOBACCO NON-USER [facility] May 28, 2013 11:05 AM LIFETIME NON-TOBACCO USER [facility] May 25, 2013 12:08 PM FORMER TOBACCO USER 7Y OR GREATE R [facility] Jun 18, 2009 09:48 AM FORMER TOBACCO USER 7Y OR GREATE R [facility] Aug 24, 2008 10:10 AM FORMER TOBACCO USE >1Y <7Y [facility] Advance Directives: All historical and current Section Date Range: From patient's date of to the date document was created. This section includes ALL of a patient's completed or amended [place] Advance and Rescinded Directives. The entries below indicate that a directive exists for the patient, but an actual copy is not included with this document. The data comes from all [facility]. Date Advance Directives Provider Source March 08, 2023 ADVANCE DIRECTIVE ODILIA CHRISTIANSON Adore URENA HENRY [facility] May 02, 2014 ADVANCE DIRECTIVE DISCUSSION QUEENIE SAENZ [facility] May 24, 2013 CLINICAL WARNING SHEYLARGALINDO [facility] Sep 21, 2011 ADVANCE DIRECTIVE JORDAN ZHANG [facility] Radiology Reports: +/- 30 days of the [...] the Encounter. The data comes from all [place] treatment facilities. Date/Time Radiology Report Provider Source Jan 10, 2025 07:58 AM SHOULDER RIGHT 2-3 VIEWS: KEENA ROSA [id number] -[id number] M Exm Date: JAN 10, 2025@07:58 Req Phys: SHELLI KIM Loc: OR-PACU/01-10-2025@15:42 Img Loc: MAIN X-RAY Service: [place] [address] (Case [id number] COMPLETE) SHOULDER RIGHT 2-3 VIEWS (RAD Detailed) CPT:37739 Proc Modifiers : PORTABLE EXAM, OPERATING ROOM EXAM Reason for Study: right reverse TSA Clinical History: OR 6 shoulder rotator cuff arthropathy My pager number on record is: . I confirm that the pager number/cell phone number above is correct for reporting critical results. My correct contact # for critial results is:JULIO ZohaibKyaw [phone] Trainees only: Enter your staff provider's info here: LAST CREATININE 1.0 (12/18/24) Report Status: Verified Date Reported: JAN 10, 2025 Date Verified: JAN 10, 2025 Signs And Displays Sales Representative E-Sig:/[email or web address]/MIRANDA BROOKE MD Report: EXAMINATION: SHOULDER RIGHT 2-3 VIEWS 01/10/2025 7:58 AM INDICATION: right reverse TSA Impression: Right reverse TSA. Components appear well seated. Report Sign Date/Time: 01/10/2025 3:39 PM Primary Interpreting Staff: MIRANDA BROOKE MD, RADIOLOGIST (Signs And Displays Sales Representative) /RTS MIRANDA BROOKE [facility] Encounter Notes: All associated encounter notes This section contains the clinical notes associated to the Encounter. Date/Time Encounter Note(s) Provider Source Dec 19, 2024 12:21 PM NO SHOW NOTE: LOCAL TITLE: NO SHOW/CANCELLATION CLINIC NOTE STANDARD TITLE: NO SHOW NOTE DATE OF NOTE: DEC 19, 2024@12:21 ENTRY DATE: DEC 19, 2024@12:21:10 AUTHOR: FRANKLIN RUSSELL EXP COSIGNER: URGENCY: STATUS: COMPLETED [place] not seen for scheduled appointment due to: No Show Vet did not show for OT appt Appointment Rescheduled: No Please review patient chart and medications for renewal needs (if appropriate). /kyle/ FRANKLIN RUSSELL Occupational Therapist Signed: 12/19/2024 12:22 FRANKLIN RUSSELL [facility]
--- OUTSIDE RECORDS SUMMARY | 2025-01-16 08:03 | XMS_ITS ---
[place] DAILY HOSPITALIZATION DATA [facility] Encounter Summary Created on: January 16, 2025 KEENA ROSA : 1955 Sex: Male Author Name [facility] [facility] [place] [facility] Address [address] [place] [address] Care Team Providers Care Warp Placer Name Role Phone ZENY MARTIN Primary Care [...] PART A Oct 18, 2013 PART A [id number] Mary ROSA PATIENT MEDICARE (WNR) MEDICARE (M) PART B Oct 18, 2013 PART B [id number] Mary ROSA EOMIRELAD PATIENT MEDICARE (WNR) MEDICARE (M) PART A Oct 18, 2013 PART A [id number] Mary ROSA PATIENT Selected Encounter This section includes the information on record at [place] for the Encounter. Date/Time Encounter Type Encounter Description Reason Pro vider Source Jan 11, 2025 02:36 AM Inpatient Visit DAILY HOSPITALIZATION DATA KEVIN FRAIRE Encounter Template Text not used by [place] Plan of Treatment: Future Appointments (+ 6 months) and Future Tests (+/- 45 days) The Plan of Treatment section includes future care activities for the [facility] This section includes future appointments and future orders which are active, pending or scheduled. Future Appointments This section includes appointments that were scheduled to occur 6 months from the date of the Encounter, up to a maximum of 20 appointments. The data comes from all [facility]. Appointment Date/Time Appointment Type Appointme nt Facility Name Jan 24, 2025 01:00 PM AMBULATORY - SURGERY [facility] Jan 25, 2025 10:00 AM AMBULATORY - MEDICINE [facility] Jan 25, 2025 11:00 AM AMBULATORY - REHAB MEDICIN E [facility] Feb 01, 2025 10:00 AM AMBULATORY - MEDICINE [facility] Feb 01, 2025 11:00 AM AMBULATORY - MEDICINE [facility] Feb 08, 2025 10:00 AM AMBULATORY - MEDICINE [facility] February 22, 2025 10:00 AM AMBULATORY MEDICINE [facility] February 23, 2025 11:00 AM AMBULATORY - NONE [facility] February 23, 2025 11:30 AM AMBULATORY - SURGERY [facility] March 08, 2025 10:00 AM AMBULATORY - MEDICINE [facility] Apr 09, 2025 01:00 PM AMBULATORY - SURGERY [facility] Active, Pending, and Scheduled Orders This section includes a listing of several types of active, pending, and scheduled orders, including clinic medications orders, diagnostic test orders, procedure orders and consult orders; where the start date of the order is 45 days before the date of the Encounter or 45 days after the date of theEncounter. The data comes from all [facility]. Test Date/Time Test Type Test Details Facility Name Dec 11, 2024 11:04 AM Consult Order PT PHYSICA L THERAPY OUTPT ORTHO SURGERY Cons Pharmacy Care Coordinator's [facility] Jan 10, 2025 12:00 AM Laboratory - Blood Bank Order TYPE & SCREEN - LAB BLOOD WC [facility] Jan 12, 2025 08:18 AM Consult Order [facility] Cons Pharmacy Care Coordinators [facility] Jan 22, 2025 12:00 AM Laboratory - Chemi stry Order HEMOGLOBIN A1C BLOOD SP ONCE [facility] Jan 22, 2025 12:00 AM Laboratory - Chemi stry Order BASIC METABOLIC PANEL+MG PLASMA SP [facility] February 23, 2025 11:00 AM Imaging - General Radiology Order SHOULDER RIGHT 2-3 VIEWS RIGHT [facility] Lab Results: +/- 30 days [...] Range Comment Jan 11, 2025 12:21 PM [facility] FINGERSTICK GLUCOSE Specimen Type: BLOOD Comment: Save Result Nurse Notified Ordering Provider: ANDREA WOLF Report Released Date/Time: Jan 11, 2025 12:51 PM Reporting Lab: [facility] [phone] Performing Lab: [facility] [phone] FINGERSTICK GLUCOSE 246 mg/dL H 70-100 Jan 11, 2025 07:37 AM [facility] CBC Specimen Type: BLOOD No comment entered. Ordering Provider: ANDREA WOLF Report Released Date/Time: Jan 10, 2025 02:40 PM Reporting Lab: [facility] [phone] Performing Lab: [facility] [phone] WBC 9.7 4.0-11.0 RBC 4.50 L 4.60-6.20 HGB 12.9 g/dL L 13.5-17.9 HCT 42.3 41.0-54.0 MCV 94.0 fL 80.0-100.0 MCH 28.7 pg 27.0-33.0 MCHC 30.5 g/dL L 32.0-37.5 PLT 174 150-400 MPV 11.5 fL 9.1-13.0 RDW 13.3 11.5-14.5 Jan 11, 2025 07:37 AM [facility] BASIC METABOLIC PANEL+MG Specimen Type: PLASMA No comment entered. Ordering Provider: ANDREA WOLF Report Released Date/Time: Jan 10, 2025 02:40 PM Reporting Lab: [facility] [phone] Performing Lab: [facility] [phone] CREATININE 1.0 mg/dL 0.7-1.2 UREA NITROGEN 21 mg/dL 8-26 GLUCOSE 203 mg/dL H 70-100 SODIUM 136 mmol/L 136-145 POTASSIUM 4.1 mmol/L 3.5-5.1 CHLORIDE 102 mmol/L 98-107 CO2 23 mmol/L 22-29 CALCIUM 8.8 mg/dL 8.4-10.2 MAGNESIUM 2.0 mg/dL 1.6-2.6 ANION GAP 11 mmol/L 5-15 .CREAT EGFR(CKD-EPI) 80 >60 Jan 11, 2025 06:10 AM [facility] FINGERSTICK GLUCOSE Specimen Type: BLOOD Comment: Save Result Nurse Notified Ordering Provider: Lilli CHRISTENSEN Report Released Date/Time: Jan 11, 2025 07:41 AM Reporting Lab: [facility] [phone] Performing Lab: [facility] [phone] FINGERSTICK GLUCOSE 220 mg/dL H 70-100 Jan 10, 2025 08:11 PM [facility] FINGERSTICK GLUCOSE Specimen Type: BLOOD Comment: Save Result Nurse Notified Ordering Provider: Lilil CHRISTENSEN Report Released Date/Time: Jan 10, 2025 08:36 PM Reporting Lab: [facility] [phone] Performing Lab: [facility] [address] FINGERSTICK GLUCOSE 239 mg/dL H 70-100 Jan 10, 2025 04:30 PM [facility] FINGERSTICK GLUCOSE Specimen Type: BLOOD Comment: Save Result Nurse Notified Ordering Provider: Lilli CHRISTENSEN Report Released Date/Time: Jan 10, 2025 05:34 PM Reporting Lab: [facility] [phone] Performing Lab: [facility] [phone] FINGERSTICK GLUCOSE 190 mg/dL H 70-100 Jan 10, 2025 02:40 PM [facility] FINGERSTICK GLUCOSE Specimen Type: BLOOD Comment: Save Result Nurse Notified Ordering Provider: BENIGNO KIM Report Released Date/Time: Jan 10, 2025 03:01 PM Reporting Lab: [facility] [phone] Performing Lab: [facility] [address] FINGERSTICK GLUCOSE 183 mg/dL H 70-100 Jan 10, 2025 08:35 AM [facility] PROTHROMBIN TIME/INR Specimen Type: PLASMA Comment: ~Draw on admission. Call IV team to draw on admission. Ordering Provider: BENIGNO KIM A Report Released Date/Time: Jan 10, 2025 08:01 AM Reporting Lab: [facility] [phone] Performing Lab: [facility] [phone] .INR 0.9 0.8-1.1 .PT 10.9 s 9.4-12.5 Jan 10, 2025 08:35 AM [facility] CBC Specimen Type: BLOOD No comment entered. Ordering Provider: BENIGNO KIM A Report Released Date/Time: Jan 10, 2025 08:01 AM Reporting Lab: [facility] [phone] Performing Lab: [facility] [address] WBC 6.6 4.0-11.0 RBC 5.00 4.60-6.20 HGB 14.5 g/dL 13.5-17.9 HCT 46.1 41.0-54.0 MCV 92.2 fL 80.0-100.0 MCH 29.0 pg 27.0-33.0 MCHC 31.5 g/dL L 32.0-37.5 PLT 172 150-400 MPV 10.9 fL 9.1-13.0 RDW 13.7 11.5-14.5 Jan 10, 2025 08:35 AM [facility] ACT PART THROMBO TIME Specimen Type: PLASMA Comment: ~Draw on admission. Call IV team to draw on admission. Ordering Provider: BENIGNO KIM A Report Released Date/Time: Jan 10, 2025 08:01 AM Reporting Lab: [facility] [phone] Performing Lab: [facility] [phone] APTT 31.4 s 25.1-36.5 Jan 10, 2025 08:35 AM [facility] BASIC METABOLIC PANEL+MG Specimen Type: PLASMA No comment entered. Ordering Provider: BENIGNO KIM A Report Released Date/Time: Jan 10, 2025 08:01 AM Reporting Lab: [facility] [address] Performing Lab: [facility] [address] CREATININE 0.9 mg/dL 0.7-1.2 UREA NITROGEN 19 mg/dL 8-26 GLUCOSE 151 mg/dL H 70-100 SODIUM 138 mmol/L 136-145 POTASSIUM 3.9 mmol/L 3.5-5.1 CHLORIDE 106 mmol/L 98-107 CO2 23 mmol/L 22-29 CALCIUM 9.3 mg/dL 8.4-10.2 MAGNESIUM 2.0 mg/dL 1.6-2.6 ANION GAP 9 mmol/L 5-15 .CREAT EGFR(CKD-EPI) >90 >60 Jan 10, 2025 08:35 AM [facility] FINGERSTICK GLUCOSE Specimen Type: BLOOD Comment: Save Result Ordering Provider: BENIGNO KIM Report Released Date/Time: Jan 10, 2025 10:31 AM Reporting Lab: [facility] [phone] Performing Lab: [facility] [address] FINGERSTICK GLUCOSE 155 mg/dL H 70-100 Dec 18, 2024 12:16 PM [facility] ALBUMIN Specimen Type: PLASMA No comment entered. Ordering Provider: BENIGNO KIM A Report Released Date/Time: Sep 27, 2024 10:57 AM Reporting Lab: [facility] [phone] Performing Lab: [facility] [address] ALBUMIN 4.4 g/dL 3.5-5.0 Dec 18, 2024 12:16 PM [facility] HEMOGLOBIN A1C Specimen Type: BLOOD [...] 27, 2024 10:57 AM Reporting Lab: [facility] [phone] Performing Lab: [facility] [phone] HEMOGLOBIN A1C 7.1 H 4.0-6.0 Dec 18, 2024 12:16 PM [facility] PROTHROMBIN TIME/INR Specimen Type: PLASMA No comment entered. Ordering Provider: BENIGNO KIM A Report Released Date/Time: Sep 27, 2024 10:57 AM Reporting Lab: [facility] [address] Performing Lab: [facility] [address] .INR 0.9 0.8-1.1 .PT 10.3 s 9.4-12.5 Dec 18, 2024 12:16 PM [facility] BASIC METABOLIC PANEL+MG Specimen Type: PLASMA No comment entered. Ordering Provider: BENIGNO KIM A Report Released Date/Time: Sep 27, 2024 10:57 AM Reporting Lab: [facility] [phone] Performing Lab: [facility] [address] CREATININE 1.0 mg/dL 0.7-1.2 UREA NITROGEN 19 mg/dL 8-26 GLUCOSE 118 mg/dL H 70-100 SODIUM 139 mmol/L 136-145 POTASSIUM 4.1 mmol/L 3.5-5.1 CHLORIDE 104 mmol/L 98-107 CO2 25 mmol/L 22-29 CALCIUM 9.6 mg/dL 8.4-10.2 MAGNESIUM 2.1 mg/dL 1.6-2.6 ANION GAP 10 mmol/L 5-15 .CREAT EGFR(CKD-EPI) 80 >60 Dec 18, 2024 12:16 PM [facility] CBC & DIFF Specimen Type: BLOOD Comment: Automated Differential Performed Ordering Provider: BENIGNO KIM A Report Released Date/Time: Sep 27, 2024 10:57 AM Reporting Lab: [facility] [phone] Performing Lab: [facility] [address] WBC 9.5 4.0-11.0 RBC 5.05 4.60-6.20 HGB [...] Source Jan 11, 2025 09:30 AM 5 [facility] Jan 11, 2025 08:35 AM 8 [facility] Jan 11, 2025 08:31 AM 97.5 50 122/69 16 100 8 [facility] Jan 11, 2025 04:27 AM 6 [facility] Jan 11, 2025 12:28 AM 9 [facility] Social History: Smoking Status (Most current) [...] 19, 2023 08:00 AM VA-TOBACCO FORMER USER [facility] Tobacco Use History This section includes a history of the smoking, or tobacco-related health factors, that were collected on or before the date of the Encounter. The data comes from the [place] facility where the Encounter took place. Date/Time Smoking Status/Tobacco Use Comment F mahamed Nov 19, 2023 08:00 AM VA-TOBACCO QUIT 15 YRS OR MORE [facility] Jan 28, 2023 09:45 AM VA-TOBACCO FORMER USER [facility] Jan 28, 2023 09:45 AM VA-TOBACCO QUIT 15 YRS OR MORE [facility] Oct 30, 2021 03:00 PM VA-TOBACCO FORMER USER [facility] Oct 30, 2021 03:00 PM VA-TOBACCO QUIT 5 TO < 15 YRS [facility] Aug 17, 2019 11:38 AM VA-TOBACCO FORMER USER [facility] Aug 17, 2019 11:38 AM VA-TOBACCO QUIT 5 TO < 15 YRS [facility] Jan 06, 2018 02:39 PM FORMER TOBACCO USER 7Y OR GREATE R [facility] Jan 28, 2017 12:47 PM FORMER TOBACCO USER 7Y OR GREATE R [facility] Jan 21, 2016 03:04 PM FORMER TOBACCO USER 7Y OR GREATE R [facility] Apr 02, 2015 02:05 PM FORMER TOBACCO USER 7Y OR GREATE R [facility] March 01, 2014 09:10 AM FORMER TOBACCO USER 7Y OR GREATE R [facility] Sep 18, 2013 09:13 AM CDM COPD TOBACCO NON-USER [facility] May 28, 2013 11:05 AM LIFETIME NON-TOBACCO USER [facility] May 25, 2013 12:08 PM FORMER TOBACCO USER 7Y OR GREATE R [facility] Jun 18, 2009 09:48 AM FORMER TOBACCO USER 7Y OR GREATE R [facility] Aug 24, 2008 10:10 AM FORMER TOBACCO USE >1Y <7Y [facility] Advance Directives: All historical and current Section Date Range: From patient's date of to the date document was created. This section includes ALL of a patient's completed or amended [place] Advance and Rescinded Directives. The entries below indicate that a directive exists for the patient, but an actual copy is not included with this document. The data comes from all [facility]. Date Advance Directives Provider Source March 08, 2023 ADVANCE DIRECTIVE [facility]IA [facility] May 02, 2014 ADVANCE DIRECTIVE DISCUSSION QUEENIE SAENZ [facility] May 24, 2013 CLINICAL WARNING GALINDO STUART [facility] Sep 21, 2011 ADVANCE DIRECTIVE JORDAN ZHANG [facility] Radiology Reports: +/- 30 [...] AM SHOULDER RIGHT 2-3 VIEWS: KEENA ROSA [id number] -1955 M Exm Date: JAN 10, 2025@07:58 Req Phys: ARMINDA KIMHECTOR Pauline Colleen Loc: OR-PACU/01-10-2025@15:42 Img Loc: MAIN X-RAY Service: [place] [address] (Case [id number] COMPLETE) SHOULDER RIGHT 2-3 VIEWS (RAD Detailed) CPT:08761 Proc Modifiers : PORTABLE EXAM, OPERATING ROOM EXAM Reason for Study: right reverse TSA Clinical History: OR 6 shoulder rotator cuff arthropathy My pager number on record is: . I confirm that the pager number/cell phone number above is correct for reporting critical results. My correct contact # for critial results is:Valerio KIM [phone] Trainees only: Enter your staff provider's info here: LAST CREATININE 1.0 (12/18/24) Report Status: Verified Date Reported: JAN 10, 2025 Date Verified: JAN 10, 2025 Elementary Art Teacher E-Sig:/ES/MIRANDA BROOKE MD Report: EXAMINATION: SHOULDER RIGHT 2-3 VIEWS 01/10/2025 7:58 AM INDICATION: right reverse TSA Impression: Right reverse TSA. Components appear well seated. Report Sign Date/Time: 01/10/2025 3:39 PM Primary Interpreting Staff: MIRANDA BROOKE MD, RADIOLOGIST (Elementary Art Teacher) /RTS MIRANDA BROOKE [facility]
--- OUTSIDE RECORDS SUMMARY | 2025-01-16 08:03 | XMS_ITS | Encounter Summary ---
Author Name [facility] Address [address] [place] [address] Care Team Providers Care Hangar Attendant Name Role Phone ZENY MARTIN Primary Care [...] PART A Oct 18, 2013 PART A [id number] Mary ROSA PATIENT MEDICARE (WNR) MEDICARE (M) PART B Oct 18, 2013 PART B [id number] [phone] Mary ROSA PATIENT MEDICARE (WNR) MEDICARE (M) PART A Oct 18, 2013 PART A [id number] Mary ROSA PATIENT Selected Encounter This section includes the information on record at [place] for the Encounter. Date/Time Encounter Type Encounter Description Reason Provider Source Feb 03, 2024 01:30 PM OFF/OP CNSLTJ NEW/EST LOW 30 [facility] ICD-10-CM N20.2 Calculus of kidney with calculus of ureter YOLANDA SIEGEL Encounter Template Text not used by [place] Assessments - Encounter Diagnoses This section includes the primary and secondary diagnoses documented for the Encounter. Date/Time Primary/Secondary Diagnosis Diagnosis Name Provider Source Feb 03, 2024 01:35 PM PRIMARY Calculus of kidney with calculus of ureter YOLANDA SIEGEL [facility] Plan of Treatment: Future Appointments (+ 6 months) and Future Tests (+/- 45 days) The Plan of Treatment section includes future care activities for the patient from all [place] treatmentfacilities. This section includes future appointments and future orders which are active, pending or scheduled. Future Appointments This section includes appointments that were scheduled to occur 6 months from the date of the Encounter, up to a maximum of 20 appointments. The data comes from all [place] treatment facilities. Appointment Date/Time Appointment Type Appointme nt Facility Name March 02, 2024 10:00 AM AMBULATORY - [facility]ICINE [facility] Mar 24, 2024 01:40 PM AMBULATORY - SURGERY [facility] Mar 24, 2024 02:00 PM AMBULATORY - SURGERY [facility] Mar 27, 2024 01:00 PM AMBULATORY - MEDICINE [facility] Mar 27, 2024 02:00 PM AMBULATORY - MEDICINE [facility] Apr 04, 2024 12:45 PM AMBULATORY - NONE [facility] Apr 06, 2024 10:00 AM AMBULATORY - MEDICINE [facility] Apr 14, 2024 01:00 PM AMBULATORY - SURGERY [facility] Apr 27, 2024 10:00 AM AMBULATORY - MEDICINE [facility] May 11, 2024 10:00 AM AMBULATORY - MEDICINE [facility] May 12, 2024 01:30 PM AMBULATORY - MEDICINE [facility] May 12, 2024 02:30 PM AMBULATORY - NONE [facility] May 25, 2024 10:00 AM AMBULATORY - MEDICINE [facility] May 30, 2024 01:00 PM AMBULATORY - SURGERY [facility] May 30, 2024 01:45 PM AMBULATORY - NONE [facility] Jun 08, 2024 10:00 AM AMBULATORY - MEDICINE [facility] Jun 20, 2024 07:00 AM AMBULATORY - NONE [facility] Jun 21, 2024 01:00 PM AMBULATORY - SURGERY [facility] Jun 21, 2024 02:15 PM [facility] Jun 29, 2024 07:00 AM AMBULATORY - NONE [facility] Active, Pending, and Scheduled Orders This section includes a listing of several types of active, pending, and scheduled orders, including clinic medications orders, diagnostic test orders, procedure orders and consult orders; where the start date of the order is 45 days before the date of the Encounter or 45 days after the date of theEncounter. The data comes from all [place] treatment facilities. Test Date/Time Test Type Test Details Facility Name Feb 02, 2024 12:00 AM Laboratory - Chemi stry Order CBC BLOOD SP ONCE [facility] Feb 02, 2024 12:00 AM Laboratory - Chemi stry Order BASIC METABOLIC PANEL+MG PLASMA SP [facility] Feb 02, 2024 12:00 AM Laboratory - Chemi stry Order AST/SGOT PLASMA SP ONCE [facility] Feb 02, 2024 12:00 AM Laboratory - Chemi stry Order ALT/SGPT PLASMA SP ONCE [facility] Feb 03, 2024 12:00 AM Laboratory - Chemi stry Order STONE ANALYSIS STONE SP ONCE [facility] Feb 03, 2024 12:00 AM Laboratory - Chemi stry Order STONE ANALYSIS STONE WC ONCE [facility] February 25, 2024 12:00 AM Laboratory - Chemi stry Order HEMOGLOBIN A1C BLOOD SP ONCE [facility] February 25, 2024 12:00 AM Laboratory - Chemi stry Order BASIC METABOLIC PANEL+MG PLASMA SP ONCE [facility] February 25, 2024 12:00 AM Laboratory - Chemi stry Order LIPID PANEL,NON-FASTING PLASMA SP ONCE [facility] February 25, 2024 12:00 AM Laboratory - Chemi stry Order MICROALBUMIN/CREATININ E RATIO URINE URINE SP ONCE [facility] Lab Results: +/- 30 days [...] Result - Unit Interpretation Reference Range Comment Feb 03, 2024 03:23 PM [facility] STONE ANALYSIS Specimen Type: STONE Comment: Calcium Oxalate Dihydrate (Weddellite) 30% Carbonate Apatite (Dahllite) 70% This test was developed and its analytical performance characteristics have been determined by [facility]. It has not been cleared or approved by the FDA. This assay has been validated pursuant to the CLIA regulations and is used for clinical purposes. Test performed by: [facility] [id number] [place] [address] Silk Hanger: Luis [place] M.D. Test Reported by [facility], [address] [place] [address] Palomo Anna M.D., Ph.D., Director of Laboratories , [place] [id number] Ordering Provider: SILVIO SIEGEL Report Released Date/Time: Feb 03, 2024 01:34 PM Reporting Lab: [facility] [id number] Performing Lab: [address] .STONE SOURCE NOT GIVEN .STONE COMPONENT 1 SEE NOTE .STONE COMPONENT 2 DNR .STONE WEIGHT 0.011 Jan 11, 2024 11:16 AM [facility] COMPREHENSIVE METABOLIC PANEL+MG Specimen Type: PLASMA No comment entered. Ordering Provider: TERESA STAHL Report Released Date/Time: Jan 11, 2024 10:24 AM Reporting Lab: [facility] [id number] Performing Lab: [facility] [address] CREATININE 1.1 mg/dL 0.7-1.2 UREA NITROGEN 20 mg/dL 8-26 GLUCOSE 135 mg/dL H 70-100 SODIUM 137 mmol/L 136-145 POTASSIUM 3.9 mmol/L 3.5-5.1 CHLORIDE 106 mmol/L 98-107 CO2 20 mmol/L L 22-29 CALCIUM 9.5 mg/dL 8.4-10.2 PROTEIN,TOTAL 6.7 g/dL 6.0-8.3 ALBUMIN 4.3 g/dL 3.5-5.2 BILIRUBIN, TOTAL 0.4 mg/dL 0.2-1.2 MAGNESIUM 2.0 mg/dL 1.6-2.6 ANION GAP 11 mmol/L 5-15 ALKALINE PHOSPHATASE 64 U/L 40-150 ALT/SGPT 19 U/L <55 AST/SGOT 23 U/L <34 .CREAT EGFR(CKD-EPI) 72 >60 Jan 11, 2024 11:16 AM [facility] CBC & DIFF Specimen Type: BLOOD Comment: Automated Differential Performed Ordering Provider: TERESA STAHL Report Released Date/Time: Jan 11, 2024 10:24 AM Reporting Lab: [facility] [id number] Performing Lab: [facility] [address] WBC 10.05 10*3/uL 4.0-11.0 RBC 4.95 10*6/uL 4.6-6.2 HGB 14.7 g/dL 13.5-17.9 HCT 45.4 41-54 MCV 91.7 fL 80-100 MCH 29.7 pg 27-33 MCHC 32.4 g/dL 32.0-37.5 PLT 164 10*3/uL 150-400 MPV 10.9 fL H 7.4-10.4 NEUT 73.5 40.0-80.0 LYMPHS 13.1 L 15.0-45.0 MONO 12.4 H 2.0-12.0 EOSINO 0.3 0.0-6.0 BASO 0.3 0.0-2.0 RDW 13.6 11.5-14.5 ABS LYMPH 1.32 10*3/uL 1.0-4.0 ABS MONO 1.25 10*3/uL H 0.1-1.0 ABS NEUT 7.38 10*3/uL 2.0-7.7 ABS EOS 0.03 10*3/uL 0-0.5 ABS BASO 0.03 10*3/uL 0-0.2 IG(META,MYELO, PRO) 0.4 ABS IMMATURE GRAN 0.04 10*3/uL 0-0.1 Jan 11, 2024 11:00 AM [facility] EXTRA GOLD GEL TUBE Specimen Type: SERUM No comment entered. Ordering Provider: TERESA STAHL Report Released Date/Time: Jan 11, 2024 11:17 AM Reporting Lab: [facility] [phone] Performing Lab: [facility] [phone] EXTRA GOLD GEL TUBE RECEIVED Jan 11, 2024 11:00 AM [facility] EXTRA BLUE TUBE Specimen Type: PLASMA No comment entered. Ordering Provider: TERESA STAHL Report Released Date/Time: Jan 11, 2024 11:17 AM Reporting Lab: [facility] [phone] Performing Lab: [facility] [address] EXTRA BLUE TUBE RECEIVED Jan 11, 2024 11:00 AM [facility] URINALYSIS Specimen Type: URINE No comment entered. Ordering Provider: TERESA STAHL Report Released Date/Time: Jan 11, 2024 10:24 AM Reporting Lab: [facility] [address] Performing Lab: [facility] [address] URINE COLOR LIGHT-YELLOW SPECIFIC GRAVITY 1.024 1.003-1.03 5 URINE BILIRUBIN NEGATIVE NEGATIVE URINE KETONES 2+ NEGATIVE URINE GLUCOSE >1000 mg/dL URINE PROTEIN 10 mg/dL URINE PH 7.0 5.0-8.0 URINE WBC/HPF 2 /[HPF] 0-7 URINE BACTERIA NONE SEEN URINE RBC/HPF 45 /[HPF] H 0-3 APPEARANCE CLEAR SQUAMOUS EPITHELIAL NONE SEEN /[HPF] URINE BLOOD 1+ NEGATIVE URINE NITRITE NEGATIVE NEGATIVE LEUKOCYTE ESTERASE NEGATIVE NEGATIVE Vital Signs: All taken on the encounter date This section contains inpatient and outpatient Vital Signs collected on the date of the Encounter. Date/Time Temperature Pulse Blood Pressure Respiratory Rate SP02 Pain Height Weight Body Mass Index Source Feb 03, 2024 11:44 AM 190.1 27 [facility] Social History: Smoking Status (Most current) [...] place. Date/Time Current Smoking Status Comment Serina ity Nov 19, 2023 08:00 AM [place]-TOBACCO QUIT 15 YRS OR MORE [facility] Tobacco Use History This section includes a history of the smoking, or tobacco-related health factors, that were collected on or before the date of the Encounter. The data comes from the [place] facility where the Encounter took place. Date/Time Smoking Status/Tobacco Use Comment F acility Nov 19, 2023 08:00 AM VA-TOBACCO QUIT 15 YRS OR MORE [facility] Jan 28, 2023 09:45 AM VA-TOBACCO FORMER USER [facility] Jan 28, 2023 09:45 AM VA-TOBACCO QUIT 15 YRS OR MORE [facility] Oct 30, 2021 03:00 PM VA-TOBACCO FORMER USER [facility] Oct 30, 2021 03:00 PM VA-TOBACCO QUIT 5 TO < 15 YRS [facility] Aug 17, 2019 11:38 AM VA-TOBACCO FORMER USER [facility] Aug 17, 2019 11:38 AM VA-TOBACCO QUIT 5 TO < 15 YRS [facility] Jan 06, 2018 02:39 PM FORMER TOBACCO USER 7Y OR GREATE R [facility] Jan 28, 2017 12:47 PM FORMER TOBACCO USER 7Y OR GREATE R [facility] Jan 21, 2016 03:04 PM FORMER TOBACCO USER 7Y OR GREATE R [facility] Apr 02, 2015 02:05 PM FORMER TOBACCO USER 7Y OR GREATE R [facility] March 01, 2014 09:10 AM FORMER TOBACCO USER 7Y OR GREATE R [facility] Sep 18, 2013 09:13 AM CDM COPD TOBACCO NON-USER [facility] May 28, 2013 11:05 AM LIFETIME NON-TOBACCO USER [facility] May 25, 2013 12:08 PM FORMER TOBACCO USER 7Y OR GREATE R [facility] Jun 18, 2009 09:48 AM FORMER TOBACCO USER 7Y OR GREATE R [facility] Aug 24, 2008 10:10 AM FORMER TOBACCO USE >1Y <7Y [facility] Advance Directives: All historical and current Section Date Range: From patient's date of to the date document was created. This section includes ALL of a patient's completed or amended [place] Advance and Rescinded Directives. The entries below indicate that a directive exists for the patient, but an actual copy is not included with this document. The data comes from all [place] facilities. Date Advance Directives Provider Source March 08, 2023 ADVANCE DIRECTIVE [facility] May 02, 2014 ADVANCE DIRECTIVE DISCUSSION QUEENIE SAENZ [facility] May 24, 2013 CLINICAL WARNING GALINDO STUART [facility] Sep 21, 2011 ADVANCE DIRECTIVE JORDAN ZHANG [facility] Radiology Reports: +/- 30 days [...] facilities. Date/Time Radiology Report Provider Source Jan 11, 2024 10:[address] RENAL COLIC PRO TOCOL (P): KEENA ROSA [id number] -[id number] Ex Date: JAN 11, 2024@10:44 Req Phys: TERESA STAHL Loc: [facility] WALK-IN (Re Img Loc: CT IMAGING Service: Unknown (Case [id number] COMPLETE) CT (AP) ABDOMEN/PELVIS W/O CONTRA(CT Detailed) CPT:57992 Reason for Study: flank pain, urinary frequency/dribbling, LLQ pain Clinical History: LAST 3: Collection DT Specimen Test Name Result Units Ref Range 03/09/2023 05:30 PLASMA CREATININE 1.0 mg/dL 0.7 - 1.2 03/08/2023 06:26 PLASMA CREATININE 0.9 mg/dL 0.7 - 1.2 02/18/2023 10:10 PLASMA CREATININE 0.9 mg/dL 0.7 - 1.2 03/09/2023 05:30 PLASMA .CREAT EGFR(CKD-E 81 Ref: >=60 03/08/2023 06:26 PLASMA .CREAT EGFR(CKD-E >90 Ref: >=60 02/18/2023 10:10 PLASMA .CREAT EGFR(CKD-E >90 Ref: >=60 Allergies: ([facility] only) LISINOPRIL (February 18, 2009) LOSARTAN (February 18, 2009) AMLODIPINE (Jun 18, 2009) DEMEROL HYDROCHLORIDE INJECTION 50 MG/ML (March 04, 2014) GABAPENTIN (Jan 23, 2016) DULOXETINE (Feb 11, 2016) Defer to radiologist for final CT protocol. Contact number for responsible provider who can be reached for any questions or notifications of critical findings: [phone] Per Joint Commission Standards, by signing this diagnostic imaging request the ordering provider confirms they have considered patients age and recent imaging history. Report Status: Verified Date Reported: JAN 11, 2024 Date Verified: JAN 11, 2024 [employer] E-Sig:/ES/TRAMAINE VERGARA MD Report: CT abdomen and pelvis without contrast 01/11/2024 History: Flank pain, urinary frequency/dribbling, left lower quadrant pain Comparison: CT: Review 12/30/2021. Technique: CT of the abdomen and pelvis without IV contrast. Dose: Total DLP: 532 mGy*cm Findings: Pneumobilia. The common hepatic bile duct is dilated measuring 13 mm, this is not significant changed from MRI 01/06/2022. Distended gallbladder without surrounding inflammatory changes. Punctate pancreatic parenchymal calcification on series 2 image 78. No acute inflammatory changes about the pancreas. No suspicious adrenal or splenic lesion in the ynpdv-ov-mdem. The liver, spleen and stomach are incompletely included in the xetga-wy-vrix. Prominence of the gastric wall, likely related to nondistention. Multiple right renal calyceal tip stones measuring up to 7 mm. No right-sided hydronephrosis. No stone in the right ureter. Mild left-sided hydronephrosis and hydroureter. 3 mm stone on series 2 image 287, this is either within the distal most aspect the left ureterovesicular junction or within the posterior aspect of the urinary bladder lumen. Mild left periureteral and perinephric fat stranding. Left renal calyceal tip stones measuring up to 6 mm (series 2 image 97). Fluid attenuation left renal cyst on series 2 image 82. Exophytic focus at the posterior aspect left kidney on series 2 image 98, this has greater than simple fluid attenuation, it corresponds with a benign proteinaceous or hemorrhagic cyst on MRI 01/06/2022. Prominent node adjacent to the left adrenal gland on series 2 image 54, not significantly changed from prior. Prominent nodes in the jennyfer hepatis are similar to prior and likely reactive. Atherosclerotic plaque of the abdominal aorta and iliac arteries, cannot assess for vascular patency without IV contrast. No infrarenal abdominal aortic aneurysm. Prominence of the urinary bladder wall, nonspecific as the lumen is nondistended. Prostatic parenchymal calcifications are present. Colonic diverticulosis without acute inflammatory changes to suggest acute diverticulitis. Unremarkable appendix. No acute bowel obstruction is identified. Partially visualized left hip arthroplasty. Degenerative changes are present in the spine. Impression: 1. 3 mm stone is either located in the distal most aspect of the left ureterovesicular junction or in the posterior aspect of the urinary bladder lumen. There is mild left-sided hydroureteronephrosis. Asymmetric fat stranding about the left kidney and left ureter, likely reactive given hydroureteronephrosis, correlate clinically for signs or symptoms of infection. 2. Pneumobilia, likely related to GI biliary intervention dated 01/09/2022. Biliary ductal dilatation does not appear significant changed from 01/06/2023. 3. Bilateral nonobstructing renal calyceal tip stones measuring up to 7 mm on the right and 6 mm on the left. 4. Previously reported cystic lesion in the pancreatic body cannot be adequately evaluated on this noncontrast CT examination, recommend imaging surveillance with MRI. 5. Additional findings as described in the body of the report. The result of left-sided hydroureteronephrosis was communicated to TERESA STAHL on 01/11/2020. at 1125 a.m. with readback verification. Primary Interpreting Staff: TRAMAINE VERGARA MD, RADIOLOGIST ([employer]) /JRT TRAMAINE VERGARA [facility] Encounter Notes: All associated encounter notes This section contains the clinical notes associated to the Encounter. Date/Time Encounter Note(s) Provider Source Feb 03, 2024 01:26 PM UROLOGY NURSING OUTPATIENT NOTE: LOCAL TITLE: UROLOGY CLINIC NURSING NOTE STANDARD TITLE: UROLOGY NURSING OUTPATIENT NOTE DATE OF NOTE: FEB 03, 2024@13:26 ENTRY DATE: FEB 03, 2024@13:26:12 AUTHOR: UMAIR GRACE EXP COSIGNER: URGENCY: STATUS: COMPLETED UROLOGY CLINIC NURSING NOTE Has ADDENDA Nursing Procedures: Specimen Collection: Kidney Stone Participant instructed and verbalized understanding of procedure. Residual Urine (RU) Patient instructed and verbalizes that s/he has emptied the bladder completely. Ultrasound RU: 466 cc Participant instructed and verbalized understanding of procedure. /kyle/ UMAIR GRACE LPN LICENSED PRACTICAL NURSE Signed: 02/03/2024 13:29 02/03/2024 ADDENDUM STATUS: COMPLETED Nursing Procedures: Intermittent Self Catherization (SIC) Participant(s) given Self Catherization handout. Participant(s) can verbalize and/or demonstrate: Purpose of S.I.C. and to catheterize TID and adjust per flexschedule. Clean technique. Insertion and removal of catheter and relaxed breathing technique. Use catheter once and throw away. Measure residual urines and flow flex schedule. Graduate provided. To report symptoms of urinary tract infection, hematuria, or difficulty catheterizing. Phone number provided 14f speedicaths catheters 120/month with 11 refills. Comments: [place] was able to successfully demonstrate SIC using clean technique, RU:200mL. Vet voiced confidence in ability to cath indpendently as instructed. /kyle/ DOMENIC JUAN EARRING MAKER NURSE Signed: 02/03/2024 14:26 UMAIR GRACE [facility] Feb 03, 2024 01:20 PM UROLOGY CONSULT: LOCAL TITLE: UROLOGY CONSULT STANDARD TITLE: UROLOGY CONSULT DATE OF NOTE: FEB 03, 2024@13:20 ENTRY DATE: FEB 03, 2024@13:20:21 AUTHOR: AMADEO SIEGEL EXP COSIGNER: URGENCY: STATUS: COMPLETED Chief Complaint: kidney stone KEENA Wiseman is a 68 year old [place] w/ pmhx sig for: DM, COPD, HTN. Seen recently in ED for renal colic sx's and CT showed small left distal ureteral stone + multiple small renal stones. Had strained his urine and noted stone to have passed and brought this in. Feeling back to normal now. No prior hx of stones per vet though he states having had kidney infections in the past. Voiding ok and feels to empty bladder. fluids: water 3-4 16.9oz bottles of water cranberry juice 3-4 tumblers. coffee 4-5 pots of coffee URINARY SYMPTOMS He states that his most bothersome urinary symptom is - ======= Daytime freq: Nocturia: Urinary stream: moderate Urgency: denies Incontinence: denies Hesitancy: denies Double voiding: denies Incomplete emptying: denies Hematuria: denies History of UTI: denies Hx prostate surgery: denies Alpha nelly: On flomax since YEAR, feels like it improves his symptoms. Finasteride: On finasteride since YEAR Bowel movements: Fluid intake: Caffeine intake: IPSS QoL PAST MEDICAL HISTORY ====== Diabetic peripheral neuropathy (SCT 4247Sleep apnea (SCT 50742467) Severe chronic obstructive pulmonary disPersonal History of Tobacco Use (ICD- 9-CM V15.82) Inguinial Hernia Repair (ICD-9-CM 799.9)Benign essential hypertension (SCT 5023732) Erectile dysfunction (SCT 183847724) Osteoarthrosis involving the spine (ICD-9-CM 715.98) Hyperlipidemia ([facility] [id number]) Polyp of colon (SCT 76804999) Open Angle, Primary (ICD-9-CM 365.11) Morbid obesity ([facility] [id number]) History of adenomatous polyp of colon (SHypothyroidism ([facility] [id number]) Mild memory disturbance ([facility] [id number]) History of repair of umbilical hernia ([facility] [id number]) Chronic pain following right total knee Hip pain ([facility] [id number]) Iron deficiency anemia ([facility] 04377397) Diabetes mellitus type 2 without retinopathy ([facility] [id number]) Hypokalemia ([facility] [id number]) Obesity ([facility] [id number]) Ventricular bigeminy ([facility] [id number]) Acute non-ST segment elevation myocardial infarction ([facility] [id number]) PVC - premature ventricular contraction Coronary arteriosclerosis ([facility] [id number]) History of radiofrequency ablation operaExposure to potentially hazardous substance ([facility] [id number]) PAST SURGICAL HISTORY ====== MARCH 08, 2023 Proc: Right Total Knee Arthroplasty JAN 09, 2022 Proc: ercp JAN 13, 2022 Proc: left total hip arthroplasty FAMILY HISTORY ====== Hx of prostate cancer: denies Hx of renal cancer: denies Hx of bladder cancer: denies SOCIAL HISTORY ====== Lives at home with: sister Children: 5 Occupation: retired from [employer] Tobacco use: quit 25 yrs ago. 60 pack yrs Alcohol use: sober x 20 yrs. Ilicit drug use: denies Branch of service: [employer]. Agent orange exposure: + Chemical/dye exposure: denies MEDICATIONS: Active Outpatient Medications (excluding Supplies): Outpatient Medications Status 1) ACCU-CHEK GUIDE (GLUCOSE) TEST STRIP USE 1 STRIP ACTIVE EVERY DAY 2) ASPIRIN 81MG EC TAB TAKE TWO TABLETS BY MOUTH EVERY ACTIVE DAY FOR CLOT PREVENTION FOR 6 WEEKS THEN RESUME PREVIOUS HOME DOSE OF 1 TABLET BY MOUTH DAILY. TAKE WITH FOOD. 3) BRIMONIDINE 0.2%/BRINZOLAMID 1% OPH SUSP INSTILL ONE ACTIVE DROP IN BOTH EYES TWO TIMES A DAY FOR GLAUCOMA 4) CHOLECALCIF 25MCG (D3-1,000UNIT) TAB TAKE ONE TABLET ACTIVE BY MOUTH EVERY DAY 5) DESONIDE 0.05% CREAM APPLY THIN LAYER TOPICALLY TWICE ACTIVE A DAY FOR RASH FOR 2 WEEKS OR UNTIL REDNESS AND ITCHING ARE IMPROVED 6) DOXEPIN HCL 5% TOP CREAM APPLY TO AFFECTED AREA ACTIVE TOPICALLY THREE TIMES A DAY NEEDED FOR FOOT PAIN 7) EMPAGLIFLOZIN 25MG TAB TAKE ONE TABLET BY MOUTH EVERY ACTIVE DAY 8) FERROUS GLUCONATE 324MG TAB TAKE ONE TABLET BY MOUTH ACTIVE EVERY DAY AT LEAST 4 HOURS AWAY FROM LEVOTHYROXINE 9) FUROSEMIDE 20MG TAB TAKE ONE TABLET BY MOUTH EVERY ACTIVE DAY 10) IBUPROFEN 800MG TAB TAKE ONE TABLET BY MOUTH FOUR ACTIVE TIMES A DAY NEEDED FOR KIDNEY STONE PAIN - TAKE WITH FOOD 11) INSULIN,GLARGINE-YFGN 100UNIT/ML PEN 3ML INJECT 50 ACTIVE UNITS UNDER THE SKIN EVERY DAY FOR DIABETES 12) ISOSORBIDE MONONITRATE 60MG SA TAB TAKE ONE TABLET BY ACTIVE MOUTH EVERY DAY 13) KETOCONAZOLE 2% CREAM APPLY THIN LAYER TOPICALLY ACTIVE TWICE A DAY EXTERNAL USE ONLY FOR FACIAL RASH 14) KETOCONAZOLE 2% SHAMPOO SHAMPOO SCALP, AVALOS, CHEST ACTIVE TOPICALLY 3 TIMES WEEKLY *LATHER FOR 5 MINUTES THEN RINSE* 15) LATANOPROST 0.005% OPH SOLN INSTILL 1 DROP IN BOTH ACTIVE EYES AT BEDTIME FOR GLAUCOMA REFRIGERATE BOTTLE UNTIL OPENED. 16) LEVOTHYROXINE NA (SYNTHROID) 25MCG TAB TAKE ONE ACTIVE TABLET BY MOUTH EVERY DAY FOR THYROID - TAKE AT LEAST FOUR HOURS AWAY FROM FERROUS GLUCONATE 17) LIDOCAINE 5% OINT APPLY MODERATE AMOUNT TOPICALLY ACTIVE EVERY DAY NEEDED FOR PAIN 18) LORATADINE 10MG TAB TAKE ONE TABLET BY MOUTH EVERY ACTIVE DAY FOR ALLERGIES 19) METFORMIN HCL 1000MG TAB TAKE ONE AND ONE-HALF ACTIVE TABLETS BY MOUTH EVERY MORNING AND TAKE ONE TABLET EVERY EVENING 20) MULTIVITAMIN CAP/TAB TAKE 1 TABLET BY MOUTH EVERY DAY ACTIVE 21) NITROGLYCERIN 0.4MG SL TAB DISSOLVE ONE TABLET UNDER ACTIVE THE TONGUE EVERY 5 MINUTES FOR UP TO 3 DOSES IF NEEDED FOR CHEST PAIN 22) OMEPRAZOLE 20MG EC CAP TAKE ONE CAPSULE BY MOUTH ACTIVE EVERY DAY FOR HEARTBURN 23) ONDANSETRON 8MG ORAL DISINTEGRATING TAB DISSOLVE ONE ACTIVE TABLET BY UNDER THE TONGUE THREE TIMES A DAY NEEDED FOR NAUSEA 24) ROSUVASTATIN CA 40MG TAB TAKE ONE TABLET BY MOUTH AT ACTIVE BEDTIME 25) SEMAGLUTIDE 1MG/0.75ML INJ PEN 3ML INJECT 1MG UNDER ACTIVE THE SKIN EVERY WEEK ON WEDNESDAYS 26) TAMSULOSIN HCL 0.4MG CAP TAKE ONE CAPSULE BY MOUTH ACTIVE EVERY DAY TO PASS KIDNEY STONES FOR 7 DAYS 27) TIOTROPIUM 18MCG INHL CAP 30 INHALE ONE CAPSULE IN ACTIVE INHALER BY INHALATION EVERY DAY FOR BREATHING 28) TOPIRAMATE 50MG TAB TAKE THREE TABLETS BY MOUTH TWICE ACTIVE A DAY TAKE AT NOON AND BEFORE DINNER TO REDUCE CRAVINGS. 29) VANICREAM TOP CREAM APPLY THIN LAYER TOPICALLY EVERY ACTIVE DAY NEEDED TO FEET AND LEGS FOR DRY SKIN PHYSICAL EXAM Gen: no acute distress Neck: no JVD, trachea midline, no abnormal adenopathy Resp: No increased work of breathing Abd: Soft, nontender, nondistended, no visible scars Skin: Warm and dry, no visible rashes/bruises Ext: No cyanosis, or edema. Neuro: Cranial nerves II-XII grossly intact : - PVR today: LABS: PSA 0.66 SERUM (01/28/23 08:12) 0.69 SERUM (01/01/22 13:16) 0.77 SERUM (09/29/21 12:58) 0.67 SERUM (10/17/20 13:55) 0.75 SERUM (08/23/19 15:03) Collection DT Specimen Test Name Result Units Ref Range 01/11/2024 11:16 PLASMA!! CREATININE 1.1 mg/dL 0.7 - 1.2 03/09/2023 05:30 PLASMA CREATININE 1.0 mg/dL 0.7 - 1.2 03/08/2023 06:26 PLASMA CREATININE 0.9 mg/dL 0.7 - 1.2 02/18/2023 10:10 PLASMA CREATININE 0.9 mg/dL 0.7 - 1.2 02/18/2023 10:10 PLASMA CREATININE 0.9 mg/dL 0.7 - 1.2 !! Indicates COMMENTS AVAILABLE...Refer to Interim Lab Report. TESTOSTERONE____ IMAGING Report Status: Verified Date Reported: JAN 11, 2024 Date Verified: JAN 11, 2024 [employer] E-Sig:/ES/TRAMAINE VERGARA MD Report: CT abdomen and pelvis without contrast 01/11/2024 History: Flank pain, urinary frequency/dribbling, left lower quadrant pain Comparison: CT: Review 12/30/2021. Technique: CT of the abdomen and pelvis without IV contrast. Dose: Total DLP: 532 mGy*cm Findings: Pneumobilia. The common hepatic bile duct is dilated measuring 13 mm, this is not significant changed from MRI 01/06/2022. Distended gallbladder without surrounding inflammatory changes. Punctate pancreatic parenchymal calcification on series 2 image 78. No acute inflammatory changes about the pancreas. No suspicious adrenal or splenic lesion in the [id number]. The liver, spleen and stomach are incompletely included in the [id number]-[id number]. Prominence of the gastric wall, likely related to nondistention. Multiple right renal calyceal tip stones measuring up to 7 mm. No right-sided hydronephrosis. No stone in the right ureter. Mild left-sided hydronephrosis and hydroureter. 3 mm stone on series 2 image 287, this is either within the distal most aspect the left ureterovesicular junction or within the posterior aspect of the urinary bladder lumen. Mild left periureteral and perinephric fat stranding. Left renal calyceal tip stones measuring up to 6 mm (series 2 image 97). Fluid attenuation left renal cyst on series 2 image 82. Exophytic focus at the posterior aspect left kidney on series 2 image 98, this has greater than simple fluid attenuation, it corresponds with a benign proteinaceous or hemorrhagic cyst on MRI 01/06/2022. Prominent node adjacent to the left adrenal gland on series 2 image 54, not significantly changed from prior. Prominent nodes in the jennyfer hepatis are similar to prior and likely reactive. Atherosclerotic plaque of the abdominal aorta and iliac arteries, cannot assess for vascular patency without IV contrast. No infrarenal abdominal aortic aneurysm. Prominence of the urinary bladder wall, nonspecific as the lumen is nondistended. Prostatic parenchymal calcifications are present. Colonic diverticulosis without acute inflammatory changes to suggest acute diverticulitis. Unremarkable appendix. No acute bowel obstruction is identified. Partially visualized left hip arthroplasty. Degenerative changes are present in the spine. Impression: 1. 3 mm stone is either located in the distal most aspect of the left ureterovesicular junction or in the posterior aspect of the urinary bladder lumen. There is mild left-sided hydroureteronephrosis. Asymmetric fat stranding about the left kidney and left ureter, likely reactive given hydroureteronephrosis, correlate clinically for signs or symptoms of infection. 2. Pneumobilia, likely related to GI biliary intervention dated 01/09/2022. Biliary ductal dilatation does not appear significant changed from 01/06/2023. 3. Bilateral nonobstructing renal calyceal tip stones measuring up to 7 mm on the right and 6 mm on the left. 4. Previously reported cystic lesion in the pancreatic body cannot be adequately evaluated on this noncontrast CT examination, recommend imaging surveillance with MRI. 5. Additional findings as described in the body of the report. The result of left-sided hydroureteronephrosis was communicated to TERESA STAHL on 01/11/2020. at 1125 a.m. with readback verification. Primary Interpreting Staff: TRAMAINE VERGARA MD, RADIOLOGIST ([employer]) /JRT PLAN KEENA Wiseman is a 68 year old gentleman who presents for # left UVJ stone - passed - sent for anlaysis. # b/l renal stones. overall small. - vet has sig competing illness'. Best to continue w/ [facility]. # left mild HUN - likely refractory from recent stone - rtc for ct stone run in 2m. # urinary retention. 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 /es/ ROBERT MIRANDA PHYSICIAN IT APPLICATION SUPPORT ANALYST Signed: 02/03/2024 13:36 [facility]
--- OUTSIDE RECORDS SUMMARY | 2025-01-16 08:03 | XMS_ITS | Encounter Summary ---
Author Name [facility] [place] [facility] [place] Address [address] [place] [address] Care Team Providers Care Polysomnography Technologist Name Role Phone ZENY MARTIN Primary Care [...] PART A Oct 18, 2013 PART A [id number] [phone] Mary ROSA EORDONEY PATIENT MEDICARE (WNR) MEDICARE (M) PART B Oct 18, 2013 PART B [id number] [phone] Mary ROSA EONARD PATIENT MEDICARE (WNR) MEDICARE (M) PART A Oct 18, 2013 PART A [id number] [phone] Mary ROSA EORODNEY PATIENT Selected Encounter This section includes the information on record at [place] for the Encounter. Date/Time Encounter Type Encounter Description Reason Pro vider Source Jan 10, 2025 12:00 AM Outpatient Encounter EVENT (HISTORICAL) IHE Encounter Template [...] 20 appointments. The data comes from all [facility]. Appointment Date/Time Appointment Type Appointme nt Facility Name Jan 24, 2025 01:00 PM AMBULATORY - SURGERY [facility] Jan 25, 2025 10:00 AM AMBULATORY - MEDICINE [facility] Jan 25, 2025 11:00 AM AMBULATORY - REHAB MEDICIN E [facility] Feb 01, 2025 10:00 AM AMBULATORY - MEDICINE [facility] Feb 01, 2025 11:00 AM AMBULATORY - MEDICINE [facility] Feb 08, 2025 10:00 AM AMBULATORY - MEDICINE [facility] February 22, 2025 10:00 AM AMBULATORY - MEDICINE [facility] February 23, 2025 11:00 AM AMBULATORY - NONE [facility] February 23, 2025 11:30 AM AMBULATORY - SURGERY [facility] March 08, 2025 10:00 AM AMBULATORY - MEDICINE [facility] Apr 09, 2025 01:00 PM AMBULATORY - SURGERY [facility] Active, Pending, and Scheduled Orders This section includes a listing of several types of active, pending, and scheduled orders, including clinic medications orders, diagnostic test orders, procedure orders and consult orders; where the start date of the order is 45 days before the date of the Encounter or 45 days after the date of theEncounter. The data comes from all [facility]. Test Date/Time Test Type Test Details Facility Name Dec 11, 2024 11:04 AM Consult Order PT PHYSICA L THERAPY OUTPT ORTHO SURGERY Cons [facility] Jan 10, 2025 12:00 AM Laboratory - Blood Bank Order TYPE & SCREEN - LAB BLOOD [facility] Jan 12, 2025 08:18 AM Consult Order [facility] 22, [facility]25 12:00 AM Laboratory - Chemi stry Order HEMOGLOBIN A1C BLOOD SP ONCE [facility] Jan 22, 2025 12:00 AM Laboratory - Chemi stry Order BASIC METABOLIC PANEL+MG PLASMA SP [facility] February 23, 2025 11:00 AM Imaging - General Radiology Order SHOULDER RIGHT 2-3 VIEWS RIGHT [facility] Lab Results: +/- 30 days of the encounter This section includes the Chemistry and Hematology Lab Results on record with [place] for the patient. Radiology Reports and Pathology Reports are provided separately, in subsequent sections. Lab Results This section contains the Chemistry/Hematology Results that were resulted 30 days before or 30 daysafter the date of the Encounter. Date/Time Source Result Type Result - Unit Interpretation Reference Range Comment Jan 11, 2025 12:21 PM [facility] FINGERSTICK GLUCOSE Specimen Type: BLOOD Comment: Save Result Nurse Notified Ordering Provider: ANDREA WOLF Report Released Date/Time: Jan 11, 2025 12:51 PM Reporting Lab: [facility] [phone] Performing Lab: [facility] [phone] FINGERSTICK GLUCOSE 246 mg/dL H 70-100 Jan 11, 2025 07:37 AM [facility] CBC Specimen Type: BLOOD No comment entered. Ordering Provider: ANDREA WOLF Report Released Date/Time: Jan 10, 2025 02:40 PM Reporting Lab: [facility] [phone] Performing Lab: [facility] [phone] WBC 9.7 4.0-11.0 RBC 4.50 L 4.60-6.20 HGB 12.9 g/dL L 13.5-17.9 HCT 42.3 41.0-54.0 MCV 94.0 fL 80.0-100.0 MCH 28.7 pg 27.0-33.0 MCHC 30.5 g/dL L 32.0-37.5 PLT 174 150-400 MPV 11.5 fL 9.1-13.0 RDW 13.3 11.5-14.5 Jan 11, 2025 07:37 AM [facility] BASIC METABOLIC PANEL+MG Specimen Type: PLASMA No comment entered. Ordering Provider: ANDREA WOLF Report Released Date/Time: Jan 10, 2025 02:40 PM Reporting Lab: [facility] [phone] Performing Lab: [facility] [phone] CREATININE 1.0 mg/dL 0.7-1.2 UREA NITROGEN 21 mg/dL 8-26 GLUCOSE 203 mg/dL H 70-100 SODIUM 136 mmol/L 136-145 POTASSIUM 4.1 mmol/L 3.5-5.1 CHLORIDE 102 mmol/L 98-107 CO2 23 mmol/L 22-29 CALCIUM 8.8 mg/dL 8.4-10.2 MAGNESIUM 2.0 mg/dL 1.6-2.6 ANION GAP 11 mmol/L 5-15 .CREAT EGFR(CKD-EPI) 80 >60 Jan 11, 2025 06:10 AM [facility] FINGERSTICK GLUCOSE Specimen Type: BLOOD Comment: Save Result Nurse Notified Ordering Provider: Lilli CHRISTENSEN Report Released Date/Time: Jan 11, 2025 07:41 AM Reporting Lab: [facility] [phone] Performing Lab: [facility] [phone] FINGERSTICK GLUCOSE 220 mg/dL H 70-100 Jan 10, 2025 08:11 PM [facility] FINGERSTICK GLUCOSE Specimen Type: BLOOD Comment: Save Result Nurse Notified Ordering Provider: Lilli CHRISTENSEN Report Released Date/Time: Jan 10, 2025 08:36 PM Reporting Lab: [facility] [phone] Performing Lab: [facility] [address] FINGERSTICK GLUCOSE 239 mg/dL H 70-100 Jan 10, 2025 04:30 PM [facility] FINGERSTICK GLUCOSE Specimen Type: BLOOD Comment: Save Result Nurse Notified Ordering Provider: Lilli CHRISTENSEN Report Released Date/Time: Jan 10, 2025 05:34 PM Reporting Lab: [facility] [phone] Performing Lab: [facility] [address] FINGERSTICK GLUCOSE 190 mg/dL H 70-100 Jan 10, 2025 02:40 PM [facility] FINGERSTICK GLUCOSE Specimen Type: BLOOD Comment: Save Result Nurse Notified Ordering Provider: BENIGNO KIM Report Released Date/Time: Jan 10, 2025 03:01 PM Reporting Lab: [facility] [address] Performing Lab: [facility] [address] FINGERSTICK GLUCOSE 183 mg/dL H 70-100 Jan 10, 2025 08:35 AM [facility] PROTHROMBIN TIME/INR Specimen Type: PLASMA Comment: ~Draw on admission. Call IV team to draw on admission. Ordering Provider: BENIGNO KIM A Report Released Date/Time: Jan 10, 2025 08:01 AM Reporting Lab: [facility] [address] Performing Lab: [facility] [address] .INR 0.9 0.8-1.1 .PT 10.9 s 9.4-12.5 Jan 10, 2025 08:35 AM [facility] CBC Specimen Type: BLOOD No comment entered. Ordering Provider: BENIGNO KIM A Report Released Date/Time: Jan 10, 2025 08:01 AM Reporting Lab: [facility] [address] Performing Lab: [facility] [address] WBC 6.6 4.0-11.0 RBC 5.00 4.60-6.20 HGB 14.5 g/dL 13.5-17.9 HCT 46.1 41.0-54.0 MCV 92.2 fL 80.0-100.0 MCH 29.0 pg 27.0-33.0 MCHC 31.5 g/dL L 32.0-37.5 PLT 172 150-400 MPV 10.9 fL 9.1-13.0 RDW 13.7 11.5-14.5 Jan 10, 2025 08:35 AM [facility] ACT PART THROMBO TIME Specimen Type: PLASMA Comment: ~Draw on admission. Call IV team to draw on admission. Ordering Provider: BENIGNO KIM A Report Released Date/Time: Jan 10, 2025 08:01 AM Reporting Lab: [facility] [address] Performing Lab: [facility] [address] APTT 31.4 s 25.1-36.5 Jan 10, 2025 08:35 AM [facility] BASIC METABOLIC PANEL+MG Specimen Type: PLASMA No comment entered. Ordering Provider: BENIGNO KIM A Report Released Date/Time: Jan 10, 2025 08:01 AM Reporting Lab: [facility] [address] Performing Lab: [facility] [address] CREATININE 0.9 mg/dL 0.7-1.2 UREA NITROGEN 19 mg/dL 8-26 GLUCOSE 151 mg/dL H 70-100 SODIUM 138 mmol/L 136-145 POTASSIUM 3.9 mmol/L 3.5-5.1 CHLORIDE 106 mmol/L 98-107 CO2 23 mmol/L 22-29 CALCIUM 9.3 mg/dL 8.4-10.2 MAGNESIUM 2.0 mg/dL 1.6-2.6 ANION GAP 9 mmol/L 5-15 .CREAT EGFR(CKD-EPI) >90 >60 Jan 10, 2025 08:35 AM [facility] FINGERSTICK GLUCOSE Specimen Type: BLOOD Comment: Save Result Ordering Provider: BENIGNO KIM Report Released Date/Time: Jan 10, 2025 10:31 AM Reporting Lab: [facility] [address] Performing Lab: [facility] [address] FINGERSTICK GLUCOSE 155 mg/dL H 70-100 Dec 18, 2024 12:16 PM [facility] ALBUMIN Specimen Type: PLASMA No comment entered. Ordering Provider: BENIGNO KIM A Report Released Date/Time: Sep 27, 2024 10:57 AM Reporting Lab: [facility] [address] Performing Lab: [facility] [address] ALBUMIN 4.4 g/dL 3.5-5.0 Dec 18, 2024 12:16 PM [facility] HEMOGLOBIN A1C Specimen Type: BLOOD [...] Sep 27, 2024 10:57 AM Reporting Lab: [facility] [address] Performing Lab: [facility] [address] HEMOGLOBIN A1C 7.1 H 4.0-6.0 Dec 18, 2024 12:16 PM [facility] PROTHROMBIN TIME/INR Specimen Type: PLASMA No comment entered. Ordering Provider: BENIGNO KIM A Report Released Date/Time: Sep 27, 2024 10:57 AM Reporting Lab: [facility] [address] Performing Lab: [facility] [address] .INR 0.9 0.8-1.1 .PT 10.3 s 9.4-12.5 Dec 18, 2024 12:16 PM [facility] BASIC METABOLIC PANEL+MG Specimen Type: PLASMA No comment entered. Ordering Provider: BENIGNO KIM A Report Released Date/Time: Sep 27, 2024 10:57 AM Reporting Lab: [facility] [address] Performing Lab: [facility] [address] CREATININE 1.0 mg/dL 0.7-1.2 UREA NITROGEN 19 mg/dL 8-26 GLUCOSE 118 mg/dL H 70-100 SODIUM 139 mmol/L 136-145 POTASSIUM 4.1 mmol/L 3.5-5.1 CHLORIDE 104 mmol/L 98-107 CO2 25 mmol/L 22-29 CALCIUM 9.6 mg/dL 8.4-10.2 MAGNESIUM 2.1 mg/dL 1.6-2.6 ANION GAP 10 mmol/L 5-15 .CREAT EGFR(CKD-EPI) 80 >60 Dec 18, 2024 12:16 PM [facility] CBC & DIFF Specimen Type: BLOOD Comment: Automated Differential Performed Ordering Provider: BENIGNO KIM A Report Released Date/Time: Sep 27, 2024 10:57 AM Reporting Lab: [facility] [address] Performing Lab: [facility] [address] WBC 9.5 4.0-11.0 RBC 5.05 4.60-6.20 HGB [...] Source Jan 10, 2025 08:57 PM 6 [facility] Jan 10, 2025 07:57 PM 7 [facility] Jan 10, 2025 05:58 PM 187.8 27 [facility] Jan 10, 2025 09:21 AM 186 27 [facility] Jan 10, 2025 09:20 AM 98 61 128/73 16 98 7 [facility] Social History: Smoking Status (Most current) and Tobacco Use (All prior to encounter date) This section includes the most current, and the historical, smoking and tobacco- related health factors from the [place] facility where the Encounter took place. Current Smoking Status This section includes the most current smoking, or tobacco-related health factor, from the [place] facility where the Encounter took place. Date/Time Current Smoking Status Comment Serina reece Nov 19, 2023 08:00 AM VA-TOBACCO FORMER USER [facility] Tobacco Use History This section includes a history of the smoking, or tobacco-related health factors, that were collected on or before the date of the Encounter. The data comes from the [place] facility where the Encounter took place. Date/Time Smoking Status/Tobacco Use Comment F mahamed Nov 19, 2023 08:00 AM VA-TOBACCO QUIT 15 YRS OR MORE [facility] Jan 28, 2023 09:45 AM VA-TOBACCO FORMER USER [facility] Jan 28, 2023 09:45 AM VA-TOBACCO QUIT 15 YRS OR MORE [facility] Oct 30, 2021 03:00 PM VA-TOBACCO FORMER USER [facility] Oct 30, 2021 03:00 PM VA-TOBACCO QUIT 5 TO < 15 YRS [facility] Aug 17, 2019 11:38 AM VA-TOBACCO FORMER USER [facility] Aug 17, 2019 11:38 AM VA-TOBACCO QUIT 5 TO < 15 YRS [facility] Jan 06, 2018 02:39 PM FORMER TOBACCO USER 7Y OR GREATE R [facility] Jan 28, 2017 12:47 PM FORMER TOBACCO USER 7Y OR GREATE R [facility] Jan 21, 2016 03:04 PM FORMER TOBACCO USER 7Y OR GREATE R [facility] Apr 02, 2015 02:05 PM FORMER TOBACCO USER 7Y OR GREATE R [facility] March 01, 2014 09:10 AM FORMER TOBACCO USER 7Y OR GREATE R [facility] Sep 18, 2013 09:13 AM CDM COPD TOBACCO NON-USER [facility] May 28, 2013 11:05 AM LIFETIME NON-TOBACCO USER [facility] May 25, 2013 12:08 PM FORMER TOBACCO USER 7Y OR GREATE R [facility] Jun 18, 2009 09:48 AM FORMER TOBACCO USER 7Y OR GREATE R [facility] Aug 24, 2008 10:10 AM FORMER TOBACCO USE >1Y <7Y [facility] Advance Directives: All historical and current Section Date Range: From patient's date of to the date document was created. This section includes ALL of a patient's completed or amended [place] Advance and Rescinded Directives. The entries below indicate that a directive exists for the patient, but an actual copy is not included with this document. The data comes from all [facility]. Date Advance Directives Provider Source March 08, 2023 ADVANCE DIRECTIVE ODILIA CHRISTIANSON [facility] May 02, 2014 ADVANCE DIRECTIVE DISCUSSION QUEENIE SAENZ [facility] May 24, 2013 CLINICAL WARNING GALINDO STUART [facility] Sep 21, 2011 ADVANCE DIRECTIVE JORDAN ZHANG [facility] Radiology Reports: +/- 30 days of the [...] the Encounter. The data comes from all [place] treatment facilities. Date/Time Radiology Report Provider Source Jan 10, 2025 07:58 AM SHOULDER RIGHT 2-3 VIEWS: KEENA ROSA [id number] -[id number] M Exm Date: JAN 10, 2025@07:58 Req Phys: ARMINDA KIMHECTOR Pauline Colleen Loc: OR-PACU/01-10-2025@15:42 Img Loc: MAIN X-RAY Service: [place] [address] (Case [id number] COMPLETE) SHOULDER RIGHT 2-3 VIEWS (RAD Detailed) CPT:31156 Proc Modifiers : PORTABLE EXAM, OPERATING ROOM EXAM Reason for Study: right reverse TSA Clinical History: OR 6 shoulder rotator cuff arthropathy My pager number on record is: . I confirm that the pager number/cell phone number above is correct for reporting critical results. My correct contact # for critial results is:Valerio KIM [phone] Trainees only: Enter your staff provider's info here: LAST CREATININE 1.0 (12/18/24) Report Status: Verified Date Reported: JAN 10, 2025 Date Verified: JAN 10, 2025 Traffic Coordinator E-Sig:/ES/MIRANDA BROOKE MD Report: EXAMINATION: SHOULDER RIGHT 2-3 VIEWS 01/10/2025 7:58 AM INDICATION: right reverse TSA Impression: Right reverse TSA. Components appear well seated. Report Sign Date/Time: 01/10/2025 3:39 PM Primary Interpreting Staff: MIRANDA BROOKE MD, RADIOLOGIST (Traffic Coordinator) /RTS MIRANDA BROOKE [facility]
--- OUTSIDE RECORDS SUMMARY | 2025-01-16 08:04 | XMS_ITS | Encounter Summary ---
Author Name [facility] [place] [facility] Address [address] [place] [address] Care Team Providers Care Powder Carrier Name Role Phone ZENY MARTIN Primary Care [...] PART A Oct 18, 2013 PART A [id number] [phone] Mary ROSA PATIENT MEDICARE (WNR) MEDICARE (M) PART B Oct 18, 2013 PART B [id number] [phone] Mary ROSA PATIENT MEDICARE (WNR) MEDICARE (M) PART A Oct 18, 2013 PART A [id number] Mary ROSA PATIENT Selected Encounter This section includes the information on record at [place] for the Encounter. Date/Time Encounter Type Encounter Description Reason Pro vider Source Jan 11, 2025 01:00 AM Inpatient Visit ADMIN PAT ACTIVTIES (MASNONCT) SYSTEM,[facility] E Encounter Template Text not used by [place] Plan of Treatment: Future Appointments (+ 6 months) and Future Tests (+/- 45 days) The Plan of Treatment section includes future care activities for the patient [facility] [place] [facility] This section includes future appointments and future orders which are active, pending or scheduled. Future Appointments This section includes appointments that were scheduled to occur 6 months from the date of the Encounter, up to a maximum of 20 appointments. The data comes from all [facility]. Appointment Date/Time Appointment Type Appointme nt Facility Name Jan 24, 2025 01:00 PM AMBULATORY - SURGERY [facility] Jan 25, 2025 10:00 AM AMBULATORY - MEDICINE [facility] Jan 25, 2025 11:00 AM AMBULATORY - REHAB MEDICIN E [facility] Feb 01, 2025 10:00 AM AMBULATORY - MEDICINE [facility] Feb 01, 2025 11:00 AM AMBULATORY - MEDICINE [facility] Feb 08, 2025 10:00 AM AMBULATORY - MEDICINE [facility] February 22, 2025 10:00 AM AMBULATORY - MEDICINE [facility] February 23, 2025 11:00 AM AMBULATORY - NONE [facility] February 23, 2025 11:30 AM AMBULATORY - SURGERY [facility] March 08, 2025 10:00 AM AMBULATORY - MEDICINE [facility] Apr 09, 2025 01:00 PM AMBULATORY - SURGERY [facility] Active, Pending, and Scheduled Orders This section includes a listing of several types of active, pending, and scheduled orders, including clinic medications orders, diagnostic test orders, procedure orders and consult orders; where the start date of the order is 45 days before the date of the Encounter or 45 days after the date of theEncounter. The data comes from all [facility]. Test Date/Time Test Type Test Details Facility Name Dec 11, 2024 11:04 AM Consult Order PT PHYSICA L THERAPY OUTPT ORTHO SURGERY [facility] Jan 10, 2025 12:00 AM Laboratory - Blood Bank Order TYPE & SCREEN - LAB BLOOD WC [facility] Jan 12, 2025 08:18 AM Consult Order [facility] Jan 22, 2025 12:00 AM Laboratory - Chemi stry Order HEMOGLOBIN A1C BLOOD SP ONCE [facility] Jan 22, 2025 12:00 AM Laboratory - Chemi stry Order BASIC METABOLIC PANEL+MG PLASMA SP [facility] February 23, 2025 11:00 AM Imaging - General Radiology Order SHOULDER RIGHT 2-3 VIEWS RIGHT [facility] Lab Results: +/- 30 days of the encounter This section includes the Chemistry and Hematology Lab Results on record with [place] for the patient. Radiology Reports and Pathology Reports are provided separately, in subsequent sections. Lab Results This section contains the Chemistry/Hematology Results that were resulted 30 days before or 30 daysafter the date of the Encounter. Date/Time Source Result Type Result - Unit Interpretation Reference Range Comment Jan 11, 2025 12:21 PM [facility] FINGERSTICK GLUCOSE Specimen Type: BLOOD Comment: Save Result Nurse Notified Ordering Provider: ANDREA WOLF Report Released Date/Time: Jan 11, 2025 12:51 PM Reporting Lab: [facility] [phone] Performing Lab: [facility] [phone] FINGERSTICK GLUCOSE 246 mg/dL H 70-100 Jan 11, 2025 07:37 AM [facility] CBC Specimen Type: BLOOD No comment entered. Ordering Provider: ANDREA WOLF Report Released Date/Time: Jan 10, 2025 02:40 PM Reporting Lab: [facility] [phone] Performing Lab: [facility] [phone] WBC 9.7 4.0-11.0 RBC 4.50 L 4.60-6.20 HGB 12.9 g/dL L 13.5-17.9 HCT 42.3 41.0-54.0 MCV 94.0 fL 80.0-100.0 MCH 28.7 pg 27.0-33.0 MCHC 30.5 g/dL L 32.0-37.5 PLT 174 150-400 MPV 11.5 fL 9.1-13.0 RDW 13.3 11.5-14.5 Jan 11, 2025 07:37 AM [facility] BASIC METABOLIC PANEL+MG Specimen Type: PLASMA No comment entered. Ordering Provider: ANDREA WOLF Report Released Date/Time: Jan 10, 2025 02:40 PM Reporting Lab: [facility] [phone] Performing Lab: [facility] [phone] CREATININE 1.0 mg/dL 0.7-1.2 UREA NITROGEN 21 mg/dL 8-26 GLUCOSE 203 mg/dL H 70-100 SODIUM 136 mmol/L 136-145 POTASSIUM 4.1 mmol/L 3.5-5.1 CHLORIDE 102 mmol/L 98-107 CO2 23 mmol/L 22-29 CALCIUM 8.8 mg/dL 8.4-10.2 MAGNESIUM 2.0 mg/dL 1.6-2.6 ANION GAP 11 mmol/L 5-15 .CREAT EGFR(CKD-EPI) 80 >60 Jan 11, 2025 06:10 AM [facility] FINGERSTICK GLUCOSE Specimen Type: BLOOD Comment: Save Result Nurse Notified Ordering Provider: Lilli CHRISTENSEN Report Released Date/Time: Jan 11, 2025 07:41 AM Reporting Lab: [facility] [phone] Performing Lab: [facility] [address] FINGERSTICK GLUCOSE 220 mg/dL H 70-100 Jan 10, 2025 08:11 PM [facility] FINGERSTICK GLUCOSE Specimen Type: BLOOD Comment: Save Result Nurse Notified Ordering Provider: Lilli CHRISTENSEN Report Released Date/Time: Jan 10, 2025 08:36 PM Reporting Lab: [facility] [phone] Performing Lab: [facility] [address] FINGERSTICK GLUCOSE 239 mg/dL H 70-100 Jan 10, 2025 04:30 PM [facility] FINGERSTICK GLUCOSE Specimen Type: BLOOD Comment: Save Result Nurse Notified Ordering Provider: Lilli CHRISTENSEN Report Released Date/Time: Jan 10, 2025 05:34 PM Reporting Lab: [facility] [phone] Performing Lab: [facility] [address] FINGERSTICK GLUCOSE 190 mg/dL H 70-100 Jan 10, 2025 02:40 PM [facility] FINGERSTICK GLUCOSE Specimen Type: BLOOD Comment: Save Result Nurse Notified Ordering Provider: BENIGNO KIM Report Released Date/Time: Jan 10, 2025 03:01 PM Reporting Lab: [facility] [phone] Performing Lab: [facility] [phone] FINGERSTICK GLUCOSE 183 mg/dL H 70-100 Jan 10, 2025 08:35 AM [facility] PROTHROMBIN TIME/INR Specimen Type: PLASMA Comment: ~Draw on admission. Call IV team to draw on admission. Ordering Provider: BENIGNO KIM Report Released Date/Time: Jan 10, 2025 08:01 AM Reporting Lab: [facility] [phone] Performing Lab: [facility] [phone] .INR 0.9 0.8-1.1 .PT 10.9 s 9.4-12.5 Jan 10, 2025 08:35 AM [facility] CBC Specimen Type: BLOOD No comment entered. Ordering Provider: BENIGNO KIM Report Released Date/Time: Jan 10, 2025 08:01 AM Reporting Lab: [facility] [phone] Performing Lab: [facility] [phone] WBC 6.6 4.0-11.0 RBC 5.00 4.60-6.20 HGB 14.5 g/dL 13.5-17.9 HCT 46.1 41.0-54.0 MCV 92.2 fL 80.0-100.0 MCH 29.0 pg 27.0-33.0 MCHC 31.5 g/dL L 32.0-37.5 PLT 172 150-400 MPV 10.9 fL 9.1-13.0 RDW 13.7 11.5-14.5 Jan 10, 2025 08:35 AM [facility] ACT PART THROMBO TIME Specimen Type: PLASMA Comment: ~Draw on admission. Call IV team to draw on admission. Ordering Provider: BENIGNO KIM A Report Released Date/Time: Jan 10, 2025 08:01 AM Reporting Lab: [facility] [phone] Performing Lab: [facility] [phone] APTT 31.4 s 25.1-36.5 Jan 10, 2025 08:35 AM [facility] FINGERSTICK GLUCOSE Specimen Type: BLOOD Comment: Save Result Ordering Provider: BENIGNO KIM A Report Released Date/Time: Jan 10, 2025 10:31 AM Reporting Lab: [facility] [phone] Performing Lab: [facility] [phone] FINGERSTICK GLUCOSE 155 mg/dL H 70-100 Jan 10, 2025 08:35 AM [facility] BASIC METABOLIC PANEL+MG Specimen Type: PLASMA No comment entered. Ordering Provider: BENIGNO KIM A Report Released Date/Time: Jan 10, 2025 08:01 AM Reporting Lab: [facility] [phone] Performing Lab: [facility] [phone] CREATININE 0.9 mg/dL 0.7-1.2 UREA NITROGEN 19 mg/dL 8-26 GLUCOSE 151 mg/dL H 70-100 SODIUM 138 mmol/L 136-145 POTASSIUM 3.9 mmol/L 3.5-5.1 CHLORIDE 106 mmol/L 98-107 CO2 23 mmol/L 22-29 CALCIUM 9.3 mg/dL 8.4-10.2 MAGNESIUM 2.0 mg/dL 1.6-2.6 ANION GAP 9 mmol/L 5-15 .CREAT EGFR(CKD-EPI) >90 >60 Dec 18, 2024 12:16 PM [facility] ALBUMIN Specimen Type: PLASMA No comment entered. Ordering Provider: BENIGNO KIM A Report Released Date/Time: Sep 27, 2024 10:57 AM Reporting Lab: [facility] [phone] Performing Lab: [facility] [phone] ALBUMIN 4.4 g/dL 3.5-5.0 Dec 18, 2024 12:16 PM [facility] PROTHROMBIN TIME/INR Specimen Type: PLASMA No comment entered. Ordering Provider: BENIGNO KIM A Report Released Date/Time: Sep 27, 2024 10:57 AM Reporting Lab: [facility] [phone] Performing Lab: [facility] [address] .INR 0.9 0.8-1.1 .PT 10.3 s 9.4-12.5 Dec 18, 2024 12:16 PM [facility] HEMOGLOBIN A1C Specimen [...] Sep 27, 2024 10:57 AM Reporting Lab: [facility] [phone] Performing Lab: [facility] [phone] HEMOGLOBIN A1C 7.1 H 4.0-6.0 Dec 18, 2024 12:16 PM [facility] BASIC METABOLIC PANEL+MG Specimen Type: PLASMA No comment entered. Ordering Provider: BENIGNO KIM A Report Released Date/Time: Sep 27, 2024 10:57 AM Reporting Lab: [facility] [address] Performing Lab: [facility] [address] CREATININE 1.0 mg/dL 0.7-1.2 UREA NITROGEN 19 mg/dL 8-26 GLUCOSE 118 mg/dL H 70-100 SODIUM 139 mmol/L 136-145 POTASSIUM 4.1 mmol/L 3.5-5.1 CHLORIDE 104 mmol/L 98-107 CO2 25 mmol/L 22-29 CALCIUM 9.6 mg/dL 8.4-10.2 MAGNESIUM 2.1 mg/dL 1.6-2.6 ANION GAP 10 mmol/L 5-15 .CREAT EGFR(CKD-EPI) 80 >60 Dec 18, 2024 12:16 PM [facility] CBC & DIFF Specimen Type: BLOOD Comment: Automated Differential Performed Ordering Provider: BENIGNO KIM A Report Released Date/Time: Sep 27, 2024 10:57 AM Reporting Lab: [facility] [phone] Performing Lab: [facility] [address] WBC 9.5 4.0-11.0 RBC 5.05 4.60-6.20 HGB [...] Source Jan 11, 2025 09:30 AM 5 [facility] Jan 11, 2025 08:35 AM 8 [facility] Jan 11, 2025 08:31 AM 97.5 50 122/69 16 100 8 [facility] Jan 11, 2025 04:27 AM 6 [facility] Jan 11, 2025 12:28 AM 9 [facility] Social History: Smoking Status (Most current) and Tobacco Use (All prior to encounter date) This section includes the most current, and the historical, smoking and tobacco- related health factors from the [place] facility where the Encounter took place. Current Smoking Status This section includes the most current smoking, or tobacco-related health factor, from the [place] facility where the Encounter took place. Date/Time Current Smoking Status Comment Serina reece Nov 19, 2023 08:00 AM VA-TOBACCO FORMER USER [facility] Tobacco Use History This section includes a history of the smoking, or tobacco-related health factors, that were collected on or before the date of the Encounter. The data comes from the [place] facility where the Encounter took place. Date/Time [...] ALL of a patient's completed or amended [place] Advance and Rescinded Directives. The entries below indicate that a directive exists for the patient, but an actual copy is not included with this document. The data comes from all [place] facilities. Date Advance Directives Provider Source March 08, 2023 ADVANCE DIRECTIVE ODILIA CHRISTIANSON [facility] May 02, 2014 ADVANCE DIRECTIVE DISCUSSION QUEENIE SAENZ [facility] May 24, 2013 CLINICAL WARNING NARCISOGALINDO J [facility] Sep 21, 2011 ADVANCE [...] the Encounter. The data comes from all [place] treatment facilities. Date/Time Radiology Report Provider Source Jan 10, 2025 07:58 AM SHOULDER RIGHT 2-3 VIEWS: KEENA ROSA [id number] -[id number] M Exm Date: JAN 10, 2025@07:58 Req Phys: ARMINDA KIMHECTOR Macias Loc: OR-PACU/01-10-2025@15:42 Img Loc: MAIN X-RAY Service: [place] [address] (Case [id number] COMPLETE) SHOULDER RIGHT 2-3 VIEWS (RAD Detailed) CPT:04112 Proc Modifiers : PORTABLE EXAM, OPERATING ROOM EXAM Reason for Study: right reverse TSA Clinical History: OR 6 shoulder rotator cuff arthropathy My pager number on record is: . I confirm that the pager number/cell phone number above is correct for reporting critical results. My correct contact # for critial results is:Valerio KIM [phone] Trainees only: Enter your staff provider's info here: LAST CREATININE 1.0 (12/18/24) Report Status: Verified Date Reported: JAN 10, 2025 Date Verified: JAN 10, 2025 Director Of Restaurant Operations E-Sig:/ES/MIRANDA BROOKE MD Report: EXAMINATION: SHOULDER RIGHT 2-3 VIEWS 01/10/2025 7:58 AM INDICATION: right reverse TSA Impression: Right reverse TSA. Components appear well seated. Report Sign Date/Time: 01/10/2025 3:39 PM Primary Interpreting Staff: MIRANAD BROOKE MD, RADIOLOGIST (Director Of Restaurant Operations) /RTS MIRANDA BROOKE [facility] Encounter Notes: All associated encounter notes This section contains the clinical notes associated to the Encounter. Date/Time Encounter Note(s) Provider Source Jan 11, 2025 01:00 AM CRITICAL CARE UNIT NOTE: LOCAL TITLE: ICCA INPATIENT FLOWSHEET STANDARD TITLE: CRITICAL CARE UNIT NOTE DATE OF NOTE: JAN 11, 2025@01:00 ENTRY DATE: JAN 12, 2025@14:41:36 AUTHOR: HERB,MARIA VICTORIA EXP COSIGNER: URGENCY: STATUS: COMPLETED This is a place enrique only. Please see [facility] to view document. /es/ [facility] SYSTEM ICU DOCUMENT IMPORT Signed: 01/12/2025 14:41 SYSTEM,[employer]-ARK [facility] Jan 11, 2025 01:00 AM CRITICAL CARE UNIT NOTE: LOCAL TITLE: ICCA RESPIRATORY THERAPY FLOWSHEET STANDARD TITLE: CRITICAL CARE UNIT NOTE DATE OF NOTE: JAN 11, 2025@01:00 ENTRY DATE: JAN 12, 2025@15:12:36 AUTHOR: SYSTEM,[employer] EXP COSIGNER: URGENCY: STATUS: COMPLETED This is a place enrique only. Please see [facility] to view document. /es/ [employer] SYSTEM ICU DOCUMENT IMPORT Signed: 01/12/2025 15:12 SYSTEM,[facility]
--- OUTSIDE RECORDS SUMMARY | 2025-01-16 08:04 | XMS_ITS | Continuity of Care Document ---
Author Name [facility] Organization [facility] Care Team Providers Care Otr Owner Operator Name Role Phone [facility] Unavailable Unavailable Problems Combined list of problems from Department of Defense and Veterans Affairs facilities. It does not include entries that were removed or entered in error. Problem Status Onset Date Problem Type Date of Resolution Comments Source History of repair of umbilical hernia Active 10/18/18 96 Condition [facility] Abscess * (ICD-9-CM 682.9) Active Condition [facility] Acute non-ST segment elevation myocardial infarction Active Condition [facility] Benign essential hypertension (SNOMED CT 5391758) Active Condition [facility] Cataract * (ICD-9-CM 366.9/366.10) Active Condition [facility] Chronic pain following right total knee arthroplasty (SNOMED CT 00702006843200552) Active Condition [facility] Coronary arteriosclerosis Active Condition February 18 Entered By: IDRIS ANTHONY Comment: s/p FRED x1 to RCA (2019) [facility] Diabetes mellitus type 2 without retinopathy (SNOMED CT 8620845170745) Active Condition [facility] Diabetes Mellitus without mention of Complication, type II or unspecified type, Active Condition [facility] Diabetic peripheral neuropathy (SNOMED CT 213868786) Active Condition [facility] Disorders of refraction and accommodation (ICD-9-CM 367.9) Active Condition [facility] Erectile dysfunction (SNOMED CT 278943818) Active Condition [facility] Exposure to potentially hazardous substance Active Condition [facility] Exposure to potentially hazardous substance Active Condition May 15, 2024 Entered By: KRISTEN DICKENS Comment: agent orange [facility] Glaucoma, Suspect (ICD-9-CM 365.00) Active Condition [facility] Hip pain Active Condition [facility] History of adenomatous polyp of colon Active Condition Nov 28, 2014 Entered By: CORTEZ COLLINS Comment: By 2008 colonoscopy [facility] History of radiofrequency ablation operation for arrhythmia Active Condition Jan 27, 2023 Entered By: GUILLE COUCH Comment: - S/p LV summit PVC ablation 12/22/22 [facility] Hyperlipidemia (SNOMED CT 25640221) Active Condition [facility] Hypokalemia Active Condition [facility] Hypothyroidism Active Condition [facility] Inguinial Hernia Repair Active Condition [facility] Iron deficiency anemia Active Condition [facility] Mild memory disturbance Active Condition Dec 07, 2014 Entered By: GRAYSON WILDE Comment: Due to multiple medical etiologies; Normal NPT 2014 [facility] Mood Disord Due to Med Cond Active Condition [facility] Morbid obesity (SNOMED CT 936787832) Active Condition [facility] Obesity Active Condition [facility] Open Angle, Primary Active Condition [facility] Osteoarthrosis involving the spine (ICD-9-CM 715.98) Active Condition [facility] Personal History of Tobacco Use Active Condition Aug 24, 2008 Entered By: ZO ELAINE Comment: Quit 2003, Smoked x 25 years [facility] Polyp of colon (SNOMED CT 85694052) Active Condition [facility] PVC - premature ventricular contraction (SNOMED CT 405851231) Active Condition [facility] Severe chronic obstructive pulmonary disease (SNOMED CT 271545184) Active Condition [facility] Sleep apnea (SNOMED CT 73093581) Active Condition Jul 23, 2023 Entered By: DAGOBERTO DAWN Comment: iVAPS: R: 18, PS: 7-16, EPAP+14, Mirag Quatt [facility] Ventricular bigeminy Active Condition [facility] Corneal Ulcer * (ICD-9-CM 370.00) Inactive Condition 08/24/2008 [facility] Diagnosis: ICD-10-CM M19.019 Primary osteoarthritis, unspecified shoulder Active Diagnosis [facility] Diagnosis: ICD-10-CM Z48.89 Encounter for other specified surgical aftercare Active Diagnosis [facility] Diagnosis: ICD-10-CM E11.40 Type 2 diabetes mellitus with diabetic neuropathy, unsp Active Diagnosis [facility] Diagnosis: ICD-10-CM Z65.9 Problem related to unspecified psychosocial circumstances Active Diagnosis [facility] Diagnosis: ICD-10-CM Z96.611 Presence of right artificial shoulder joint Active Diagnosis [facility] Diagnosis: ICD-10-CM Z73.6 Limitation of activities due to disability Active Diagnosis [facility] Diagnosis: ICD-10-CM Z01.818 Encounter for other preprocedural examination Active Diagnosis [facility] Admit Reason: RIGHT SHOULDER ARTHRITIS Active Diagnosis VICKI RICHARD [facility] Diagnosis: ICD-10-CM Z71.9 Counseling, unspecified Active Diagnosis [facility] Diagnosis: ICD-10-CM M25.511 Pain in right shoulder Active Diagnosis [facility] Diagnosis: ICD-10-CM Z63.79 Other stressful life events affecting family and household Active Diagnosis [facility] Diagnosis: ICD-10-CM M25.562 Pain in left knee [facility] Diagnosis: ICD-10-CM Z13.6 Encounter for screening for cardiovascular disorders Active Diagnosis [facility] Diagnosis: ICD-10-CM G47.30 Sleep apnea, unspecified Active Diagnosis [facility] Diagnosis: ICD-10-CM Z65.8 Oth problems related to psychosocial circumstances Active Diagnosis [facility] Diagnosis: ICD-10-CM E11.8 Type 2 diabetes mellitus with unspecified complications Active Diagnosis [facility] Diagnosis: ICD-10-CM H40.1131 Primary open-angle glaucoma, bilateral, mild stage Active Diagnosis [facility] Diagnosis: ICD-10-CM H53.9 Unspecified visual disturbance Active Diagnosis [facility] Diagnosis: ICD-10-CM M75.101 Unsp rotatr-cuff tear/ruptr of right shoulder, not trauma Active Diagnosis [facility] Diagnosis: ICD-10-CM M19.031 Primary osteoarthritis, right wrist Active Diagnosis [facility] Diagnosis: ICD-10-CM M75.121 Complete rotatr-cuff tear/ruptr of r shoulder, not trauma Active Diagnosis [facility] Diagnosis: ICD-10-CM L21.8 Other seborrheic dermatitis Active Diagnosis [facility] Diagnosis: ICD-10-CM R33.9 Retention of urine, unspecified Active Diagnosis [facility] Diagnosis: ICD-10-CM E66.01 Morbid (severe) obesity due to excess calories Active Diagnosis AYANNA RUSSO [facility] Diagnosis: ICD-10-CM N20.2 Calculus of kidney with calculus of ureter Active Diagnosis [facility] Diagnosis: ICD-10-CM E66.3 Overweight Active Diagnosis [facility] Diagnosis: ICD-10-CM G56.03 Carpal tunnel syndrome, bilateral upper limbs Active Diagnosis [facility] Diagnosis: ICD-10-CM E11.9 Type 2 diabetes mellitus without complications Active Diagnosis [facility] Diagnosis: ICD-10-CM L21.9 Seborrheic dermatitis, unspecified Active Diagnosis [facility] Diagnosis: ICD-10-CM R60.9 Edema, unspecified Active Diagnosis [facility] Diagnosis: ICD-10-CM W01.198A Fall same lev from slip/trip w strike agnst oth object, init Active Diagnosis [facility] Diagnosis: ICD-10-CM J44.9 Chronic obstructive pulmonary disease, unspecified Active Diagnosis [facility] Diagnosis: ICD-10-CM M25.561 Pain in right knee Active Diagnosis [facility] Diagnosis: ICD-10-CM Z96.651 Presence of right artificial knee joint Active Diagnosis [facility] Medications Combined list of outpatient medications from Department of Defense and [facility] Affairs facilities.Medications provided include 1) outpatient medications from the last 15 months, and 2) patient-reported medications. Medication Details Route Status Patient Instructions Prescription Expires Prescription Number Last Dispense Date Ordering Provider Order Date Order Qty Source ACETAMINOPH EN 500MG TAB TAKE TWO TABLETS BY MOUTH THREE TIMES A DAY FOR PAIN * TAKE SCHEDULE D FOR 2 WEEKS, THEN NEEDED FOR PAIN. NO MORE THAN 3000MG PER DAY ORAL ACTIVE 01/12/2026 [id number] 5 Brit ROSA 2024 100 [facility] ALBUTEROL 90MCG/ACTUA T (CFC-F) INHL,ORAL,8 .5GM DOSE COUNTER INHALE 2 PUFFS BY MOUTH EVERY 4 HOURS NEEDED FOR SHORTNES S OF BREATH OR WHEEZING RESPIR ATORY (INHAL ATION) ACTIVE 01/12/2026 [id number] 5 COLLIN CLAYTON 2024 1 [facility] ASPIRIN 81MG TAB,CHEWABL E CHEW ONE TABLET ORALLY EVERY DAY ORAL ACTIVE TEENA SABA 2011 [facility] ASPIRIN 81MG TAB,EC TAKE ONE TABLET BY MOUTH EVERY DAY TO PREVENT BLOOD CLOTS ORAL ACTIVE 04/05/2025 [id number] 5 JAIDA MARTIN 2023 120 [facility] ASPIRIN 81MG TAB,EC TAKE TWO TABLETS BY MOUTH EVERY DAY FOR CLOT PREVENTI ON FOR 6 WEEKS THEN RESUME PREVIOUS HOME DOSE OF 1 TABLET BY MOUTH DAILY. TAKE WITH FOOD. ORAL 02/21/2024 [id number] 4 JAIDA MARTIN A 2023 84 [facility] ASPIRIN 81MG TAB,EC TAKE TWO TABLETS BY MOUTH EVERY DAY ORAL ACTIVE BRENDA FREEMAN 2024 [facility] BENZOYL PEROXIDE 10% (WATER BASED) GEL,TOP APPLY THIN LAYER TOPICALL Y TWICE A DAY TO PREVENT INFECTIO N APPLY TO SURGICAL SHOULDER STARTING TWO DAYS PRIOR TO SURGERY AND MORNING OF SURGERY. PROCEDUR E DATE: 01/10/25 APPLY TO SURGICAL SHOULDER STARTING TWO DAYS PRIOR TO SURGERY AND MORNING OF SURGERY. PROCEDUR E DATE: 01/10/25 TOPICA L DISCONT INUED BY SMAI Penny 01/17/2025 [id number] SHELLI KIM 2024 60 [facility] BRIMONIDINE 0.2%/BRINZO LAMIDE 1% SUSP,OPH INSTILL ONE DROP IN BOTH EYES TWO TIMES A DAY FOR GLAUCOMA OPHTHA LMIC ACTIVE 09/23/2025 [id number] 4 PETER TILLEY 2023 24 [facility] BRIMONIDINE 0.2%/BRINZO LAMIDE 1% SUSP,OPH INSTILL ONE DROP IN BOTH EYES TWO TIMES A DAY FOR GLAUCOMA OPHTHA LMIC DISCONT INUED 03/25/2025 [id number] 4 PETER TILLEY 2023 24 [facility] CHOLECALCIF CLAUDIA 25MCG (1,000UNIT) TAB TAKE ONE TABLET BY MOUTH EVERY DAY ORAL ACTIVE 06/09/2025 [id number] 5 LOBO ALARCON 2023 100 [facility] CHOLECALCIF CLAUDIA 25MCG (1,000UNIT) TAB TAKE ONE TABLET BY MOUTH EVERY DAY ORAL DISCONT INUED 03/09/2024 [id number] 4 KYLE NAZARIO 2022 100 [facility] DESONIDE 0.05% CREAM,TOP APPLY THIN LAYER TOPICALL Y TWICE A DAY FOR RASH FOR 2 WEEKS OR UNTIL REDNESS AND ITCHING ARE IMPROVED TOPICA L 10/18/2024 [id number] 4 KRISTEN OLSON [address] [facility] DICLOFENAC NA 1% GEL,TOP APPLY 4 GRAMS TOPICALL Y FOUR TIMES A DAY NEEDED TO AFFECTED AREA FOR PAIN TO BILAT WRIST FOR ARTHRITS PAIN DO NOT EXCEED A TOTAL MAX OF 32-GRAMS PER DAY TOPICA L ACTIVE 06/22/2025 [id number] 4 MABLEANANDPaulineEW L [address] [facility] DOCUSATE NA 50MG/SENNOS IDES 8.6MG TAB TAKE 2 TABLETS BY MOUTH TWICE A DAY FOR CONSTIPA TION *HOLD FOR LOOSE STOOLS* ORAL ACTIVE 02/10/2025 [id number] 5 Brit ROSA [address] [facility] DOXEPIN HCL 5% CREAM,TOP APPLY TO AFFECTED AREA TOPICALL Y THREE TIMES A DAY NEEDED FOR FOOT PAIN TOPICA L 03/09/2024 [id number] 4 KYLE NAZARIO 2022 90 [facility] DOXYCYCLINE HYCLATE 100MG TAB TAKE ONE TABLET BY MOUTH TWICE A DAY FOR CELLULIT IS ORAL 06/11/2024 [id number] 4 JAIDA MARTIN 2023 10 [facility] EMPAGLIFLOZ IN 25MG TAB TAKE ONE TABLET BY MOUTH EVERY DAY ORAL ACTIVE 09/26/2025 [id number] 5 KRISTEN BARRETO 2024 90 [facility] EMPAGLIFLOZ IN 25MG TAB TAKE ONE TABLET BY MOUTH EVERY DAY ORAL DISCONT INUED 03/28/2025 [id number] 4 KRISTEN BARRETO [address] [facility] EMPAGLIFLOZ IN 25MG TAB TAKE ONE TABLET BY MOUTH EVERY DAY ORAL DISCONT INUED 03/09/2024 [id number] 4 KYLE NAZARIO 2022 90 [facility] FERROUS GLUCONATE 324MG TAB TAKE ONE TABLET BY MOUTH EVERY DAY FOR IRON SUPPLEME NT AT LEAST 4 HOURS AWAY FROM LEVOTHYR OXINE ORAL ACTIVE 10/03/2025 [id number] 5 JAIDA MARTIN A 2023 100 [facility] FERROUS GLUCONATE 324MG TAB TAKE ONE TABLET BY MOUTH EVERY DAY FOR IRON SUPPLEME NT AT LEAST 4 HOURS AWAY FROM LEVOTHYR OXINE ORAL DISCONT INUED 09/06/2024 [id number] LOBO ALARCON ACOSTA 2023 100 [facility] FERROUS GLUCONATE 324MG TAB TAKE ONE TABLET BY MOUTH EVERY DAY AT LEAST 4 HOURS AWAY FROM LEVOTHYR OXINE ORAL 03/09/2024 [id number] 4 KYLE NAZARIO 2022 100 [facility] FUROSEMIDE 20MG TAB TAKE ONE TABLET BY MOUTH EVERY DAY ORAL ACTIVE 04/18/2025 [id number] 5 KYLE NAZARIO 2023 90 [facility] FUROSEMIDE 20MG TAB TAKE ONE TABLET BY MOUTH EVERY DAY ORAL DISCONT INUED 03/09/2024 [id number] 4 KYLE NAZARIO 2022 90 [facility] IBUPROFEN 800MG TAB TAKE ONE TABLET BY MOUTH FOUR TIMES A DAY NEEDED FOR KIDNEY STONE PAIN - TAKE WITH FOOD ORAL 02/10/2024 [id number] JAYANT STAHL 2023 20 [facility] INSULIN,GLA RGINE,HUMAN 100 UNIT/ML INJ,SOLOSTA R,3ML INJECT 50 UNITS UNDER THE SKIN EVERY DAY FOR DIABETES SUBCUT ANEOUS DISCONT INUED 09/27/2024 [id number] 4 KRISTEN BARRETO 2023 15 [facility] ISOSORBIDE MONONITRATE 60MG TAB,SA TAKE ONE TABLET BY MOUTH EVERY DAY ORAL ACTIVE 04/04/2025 [id number] 5 KYLE NAZARIO 2023 90 [facility] ISOSORBIDE MONONITRATE 60MG TAB,SA TAKE ONE TABLET BY MOUTH EVERY DAY ORAL DISCONT INUED 03/09/2024 [id number] 4 KYLE NAZARIO 2022 90 [facility] KETOCONAZOL E 2% SHAMPOO SHAMPOO SCALP, AVALOS, CHEST TOPICALL Y 3 TIMES WEEKLY *LATHER FOR 5 MINUTES THEN RINSE* TOPICA L ACTIVE 10/26/2025 [id number] 5 JAIDA MARTIN A 2024 240 [facility] KETOCONAZOL E 2% SHAMPOO SHAMPOO SCALP, AVALOS, CHEST TOPICALL Y 3 TIMES WEEKLY *LATHER FOR 5 MINUTES THEN RINSE* TOPICA L DISCONT INUED 09/22/2024 [id number] JAIDA MARTIN CO A 2022 240 [facility] LATANOPROST 0.005% SOLN,OPH INSTILL 1 DROP IN BOTH EYES AT BEDTIME FOR GLAUCOMA REFRIGER ATE BOTTLE UNTIL OPENED. OPHTHA LMIC ACTIVE 09/23/2025 [id number] 4 PETER TILLEY S 2023 7.5 [facility] LATANOPROST 0.005% SOLN,OPH INSTILL 1 DROP IN BOTH EYES AT BEDTIME FOR GLAUCOMA REFRIGER ATE BOTTLE UNTIL OPENED. OPHTHA LMIC DISCONT INUED 03/25/2025 [id number] 4 PETER TILLEY 2023 7.5 [facility] LEVOTHYROXI NE NA 25MCG TAB (SYNTHROID) TAKE ONE TABLET BY MOUTH EVERY DAY FOR THYROID - TAKE AT LEAST FOUR HOURS AWAY FROM FERROUS GLUCONAT E ORAL ACTIVE 03/28/2025 [id number] 5 KRISTEN BARRETO 2023 90 [facility] LEVOTHYROXI NE NA 25MCG TAB (SYNTHROID) TAKE ONE TABLET BY MOUTH EVERY DAY FOR THYROID - TAKE AT LEAST FOUR HOURS AWAY FROM FERROUS GLUCONAT E ORAL DISCONT INUED 03/09/2024 [id number] 4 KYLE NAZARIO 2022 90 [facility] LIDOCAINE 5% OINT,TOP APPLY MODERATE AMOUNT TOPICALL Y EVERY DAY NEEDED FOR PAIN TOPICA L ACTIVE 04/18/2025 [id number] 4 JENISE LEYVA 2023 35 [place] [facility] LIDOCAINE 5% OINT,TOP APPLY MODERATE AMOUNT TOPICALL Y EVERY DAY NEEDED FOR PAIN TOPICA L DISCONT INUED 04/08/2024 [id number] JENISE LEYVA 2022 35 [place] [facility] LIDOCAINE 5% PATCH APPLY 1 PATCH TOPICALL Y EVERY DAY DIRECTED FOR PAIN. MAY CUT IN HALF AND APPLY TO BOTH SIDES OF INCISION . DO NOT APPLY DIRECTLY OVER INCISION . WEAR PATCH FOR 12 HOURS, THEN REMOVE FOR 12 HOURS BEFORE NEW PATCH IS APPLIED. FOR PAIN. MAY CUT IN HALF AND APPLY TO BOTH SIDES OF INCISION . DO NOT APPLY DIRECTLY OVER INCISION . WEAR PATCH FOR 12 HOURS, THEN REMOVE FOR 12 HOURS BEFORE NEW PATCH IS APPLIED. TOPICA L ACTIVE 01/12/2026 [id number] 5 Brit ROSA 2024 30 [place] LORATADINE 10MG TAB TAKE ONE TABLET BY MOUTH EVERY DAY FOR ALLERGIE S ORAL ACTIVE 04/28/2025 [id number] JAIDA MARTIN [address] [facility] LORATADINE 10MG TAB TAKE ONE TABLET BY MOUTH EVERY DAY FOR ALLERGIE S ORAL 03/09/2024 [id number] 4 KYLE NAZARIO 2022 90 [facility] METFORMIN HCL 1000MG TAB TAKE ONE AND ONE-HALF TABLETS BY MOUTH EVERY MORNING AND TAKE ONE TABLET EVERY EVENING ORAL ACTIVE 09/26/2025 [id number] 4 KRISTEN BARRETO [address] [facility] METFORMIN HCL 1000MG TAB TAKE ONE AND ONE-HALF TABLETS BY MOUTH EVERY MORNING AND TAKE ONE TABLET EVERY EVENING ORAL DISCONT INUED 04/18/2025 [id number] 4 KYLE NAZARIO 2023 225 [facility] METFORMIN HCL 1000MG TAB TAKE ONE AND ONE-HALF TABLETS BY MOUTH EVERY MORNING AND TAKE ONE TABLET EVERY EVENING ORAL DISCONT INUED 03/09/2024 [id number] 4 KYLE NAZARIO 2022 225 [facility] METHOCARBAM OL 500MG TAB TAKE ONE TO TWO TABLETS BY MOUTH EVERY 6 HOURS NEEDED FOR PAIN RELATED TO MUSCLE SPASM AND/OR TIGHTNES S. TAKE LOWEST EFFECTIV E DOSE. ONE TABLET IS EQUAL TO 500MG FOR PAIN RELATED TO MUSCLE SPASM AND/OR TIGHTNES S. TAKE LOWEST EFFECTIV E DOSE. ONE TABLET IS EQUAL TO 500MG ORAL ACTIVE 01/12/2026 [id number] Brit ROSA 2024 80 [place] [facility] METOPROLOL SUCCINATE 25MG TAB,SA TAKE ONE-HALF TABLET BY MOUTH EVERY DAY ORAL ACTIVE 02/17/2025 [id number] 5 KELBY RUSSELL 2023 45 [place] [facility] METOPROLOL SUCCINATE 25MG TAB,SA TAKE ONE-HALF TABLET BY MOUTH EVERY DAY ORAL DISCONT INUED 01/29/2024 [id number] 4 KELBY RUSSELL 2022 45 [facility] MUPIROCIN 2% OINT,TOP APPLY PEA SIZED AMOUNT INSIDE EACH NOSTRIL TOPICALL Y TWICE A DAY TO PREVENT INFECTIO N FOR FIVE DAYS PRIOR TO SURGERY -PROCEDU RE DATE: 01/10/25 JACOB Hernandez DISCONT INUED BY PROVIDE R 01/17/2025 [id number] SHELLI KIM 2024 22 [facility] OMEPRAZOLE 20MG CAP,EC TAKE ONE CAPSULE BY MOUTH EVERY DAY FOR HEARTBUR N ORAL ACTIVE 08/15/2025 [id number] 5 JAIDA MARTIN CO A 2023 90 [facility] OMEPRAZOLE 20MG CAP,EC TAKE ONE CAPSULE BY MOUTH EVERY DAY FOR HEARTBUR N ORAL DISCONT INUED 12/09/2024 [id number] 4 SOMMER BULL A 2023 90 [facility] ONDANSETRON HCL 8MG TAB,ORALLY DISINTEGRAT ING DISSOLVE ONE TABLET BY UNDER THE TONGUE THREE TIMES A DAY NEEDED FOR NAUSEA SUBLIN FÁTIMA 02/10/2024 [id number] 4 JAYANT STAHL 2023 20 [facility] OXYCODONE HCL 5MG TAB TAKE ONE TO TWO TABLETS BY MOUTH EVERY 4 HOURS NEEDED FOR PAIN NOT CONTROLL ED WITH NON-OPIO ID REGIMEN. ATTEMPT TO USE LOWEST EFFECTIV E DOSE. ONE TABLET IS EQUAL TO 5MG FOR PAIN NOT CONTROLL ED WITH NON-OPIO ID REGIMEN. ATTEMPT TO USE LOWEST EFFECTIV E DOSE. ONE TABLET IS EQUAL TO 5MG ORAL ACTIVE 02/10/2025 [id number] Brit ROSA 2024 40 [facility] PEG-400 0.4%/PROPYL WEN GLYCOL 0.3% SOLN,OPH INSTILL 1 DROP IN BOTH EYES FOUR TIMES A DAY NEEDED FOR DRY EYES OPHTHA LMIC ACTIVE 09/23/2025 [id number] 4 PETER TILLEY 2023 15 [facility] POLYETHYLEN E GLYCOL 3350 PWDR,ORAL TAKE 17 GRAMS BY MOUTH EVERY DAY FOR CONSTIPA TION. MIX WITH 8OZ OF JUICE OR WATER *HOLD FOR LOOSE STOOLS ORAL ACTIVE 02/10/2025 [id number] 5 Brit ROSA 2024 238 [facility] ROSUVASTATI N CA 40MG TAB TAKE ONE TABLET BY MOUTH AT BEDTIME ORAL ACTIVE 09/26/2025 [id number] 5 KRISTEN BARRETO 2023 90 [facility] ROSUVASTATI N CA 40MG TAB TAKE ONE TABLET BY MOUTH AT BEDTIME ORAL DISCONT INUED 04/04/2025 [id number] 4 KYLE NAZARIO 2023 90 [facility] ROSUVASTATI N CA 40MG TAB TAKE ONE TABLET BY MOUTH AT BEDTIME ORAL DISCONT INUED 03/09/2024 [id number] 4 KYLE NAZARIO 2022 90 [facility] SEMAGLUTIDE 1MG/0.75ML INJ,SOLN,PE N,3ML INJECT 1MG UNDER THE SKIN ONCE WEEKLY FOR DIABETES ON YS SUBCUT ANEOUS ACTIVE 03/18/2025 [id number] 5 MANSIKYLE 2024 3 [facility] SEMAGLUTIDE 1MG/0.75ML INJ,SOLN,PE N,3ML INJECT 1MG UNDER THE SKIN EVERY WEEK ON YS SUBCUT ANEOUS DISCONT INUED 03/18/2025 [id number] 5 KYLE NAZARIO [address] [place] [facility] [address] [facility] SEMAGLUTIDE 1MG/0.75ML INJ,SOLN,PE N,3ML INJECT 1MG UNDER THE SKIN EVERY WEEK ON YS SUBCUT ANEOUS DISCONT INUED 03/09/2024 [id number] 4 KYLE NAZARIO 2022 1 [facility] TACROLIMUS 0.1% OINT,TOP APPLY SMALL AMOUNT TOPICALL Y TWICE A DAY FOR DERMATIT IS TOPICA L ACTIVE 06/21/2025 [id number] 4 JAIDA MARTIN CO A 2023 30 [facility] TAMSULOSIN HCL 0.4MG CAP TAKE ONE CAPSULE BY MOUTH EVERY DAY TO PASS KIDNEY STONES FOR 7 DAYS ORAL 02/10/2024 [id number] 4 JAYANT STAHL A 2023 7 [facility] TIOTROPIUM 18MCG CAP,INHL,30 INHALE ONE CAPSULE IN INHALER BY INHALATI ON EVERY DAY FOR BREATHIN G RESPIR ATORY (INHAL ATION) 10/19/2024 [id number] 4 [employer] A 2023 3 [facility] TOPIRAMATE 50MG TAB TAKE THREE TABLETS BY MOUTH TWICE A DAY TAKE AT NOON AND BEFORE DINNER TO REDUCE CRAVINGS . ORAL ACTIVE 11/14/2025 [id number] 5 KRISTEN BARRETO 2024 [address] [facility] TOPIRAMATE 50MG TAB TAKE THREE TABLETS BY MOUTH TWICE A DAY TAKE AT NOON AND BEFORE DINNER TO REDUCE CRAVINGS . ORAL DISCONT INUED 09/27/2024 [id number] 4 KRISTEN BARRETO 2022 540 [facility] VANICREAM APPLY THIN LAYER TOPICALL Y EVERY DAY FOR DRY SKIN TOPICA L ACTIVE 08/25/2025 [id number] 4 VERONICAJAIDA ELLIOTT A 2023 454 [facility] VANICREAM APPLY THIN LAYER TOPICALL Y EVERY DAY NEEDED TO FEET AND LEGS FOR DRY SKIN. TOPICA L 03/09/2024 [id number] 4 JOSE ALFREDO NAZARIOIA 2022 454 [facility] Allergies, Adverse Reactions, Alerts Combined list of allergies from Department of [facility] and Veterans Affairs facilities. It does not include entries that were removed or entered in error. Substance Category Reaction Severity Reaction type Status Date Reported Comments Source AMLODIPINE Propensity to adverse reactions to drug (finding) Edema, Peripheral edema active 9 [facility] AMLODIPINE Propensity to adverse reactions to drug (finding) Cough active 1 [facility] DEMEROL HYDROCHLORID E INJECTION 50 MG/ML Propensity to adverse reactions to drug (finding) Respiratory arrest active 4 [facility] DULOXETINE Propensity to adverse reactions to drug (finding) Nausea active 6 [facility] GABAPENTIN Propensity to adverse reactions to drug (finding) active 6 [facility] LISINOPRIL Propensity to adverse reactions to drug (finding) Cough active 1 [facility] LOSARTAN Propensity to adverse reactions to drug (finding) Cough active 9 [facility] Immunizations Combined list of available immunizations from the Department of [facility] and [facility] facilities. Immunization Series Date Given Administered By Site Reaction Lot Number CVX Code Drug Director Of Blood Status Comments Source COVID-19 ([employer]), MRNA, LNP-S, PF, 30 MCG/0.3 ML DOSE 2 2020 208 complet ed PFR; [id number]; 1 [facility] COVID-19 ([employer]), MRNA, LNP-S, PF, 30 MCG/0.3 ML DOSE 1 2020 208 complet ed PFR; [id number]; 1 [facility] INFLUENZA, INJECTABLE, QUADRIVALENT, PRESERVATIVE FREE 2019 150 complet ed [facility] INFLUENZA, SEASONAL, INJECTABLE, PRESERVATIVE FREE 2018 140 complet ed [facility] INFLUENZA, SEASONAL, INJECTABLE, PRESERVATIVE FREE 2017 140 complet ed [facility] INFLUENZA, SEASONAL, INJECTABLE, PRESERVATIVE FREE 2016 140 complet ed [facility] INFLUENZA, SEASONAL, INJECTABLE, PRESERVATIVE FREE 2015 140 complet ed [facility] INFLUENZA, SEASONAL, INJECTABLE, PRESERVATIVE FREE 2014 140 complet ed [facility] PNEUMOCOCCAL CONJUGATE PCV 13 2014 133 complet ed [facility],M20 640,02/01 [facility] INFLUENZA, UNSPECIFIED FORMULATION 2013 88 complet ed [facility] PNEUMOCOCCAL POLYSACCHARID E PPV23 2013 33 complet ed [employer], [id number] [facility] INFLUENZA, UNSPECIFIED FORMULATION 2012 88 complet ed [facility] TDAP 2012 115 complet ed glaxo ash og [id number] 07/26/15 [facility] FLU,3 YRS (HISTORICAL) 2011 88 complet ed Site: Left Deltoid [facility] FLU,3 YRS (HISTORICAL) 2010 88 complet ed Site: Left Deltoid [facility] INFLUENZA, UNSPECIFIED FORMULATION 2009 88 complet ed [facility] FLU,3 YRS (HISTORICAL) 2009 88 complet ed [facility] NOVEL INFLUENZA-H1N 1-09, ALL FORMULATIONS 2009 128 complet ed [employer] [facility] INFLUENZA, UNSPECIFIED FORMULATION 2008 88 complet ed [facility] PNEUMOCOCCAL, UNSPECIFIED FORMULATION 2008 109 complet ed [employer], [id number], [id number] [facility] PNEUMOCOCCAL, UNSPECIFIED FORMULATION 2008 109 complet ed [facility] TD(ADULT) UNSPECIFIED FORMULATION 2005 139 complet ed [facility] Results Combined list of recent chemistry, hematology and other laboratory results from Department of Defense and Veterans Affairs, ranging from 15 months to all on record, depending upon the facility. Order Name Results Value Reference Range Date Interpretation Specimen Comments Source FINGERSTI CK GLUCOSE GLUCOSE [MASS/VOLUM E] IN CAPILLARY BLOOD 246 mg/dL 70 - 100 01/11 H Specimen Type: BLOOD Comment: Save Result Nurse Notified Ordering Provider: ANDREA WOLF Report Released Date/Time: Jan 11, 2025 12:51 PM Reporting Lab: [facility] [address] Performing Lab: [facility] [address] [place] [facility] CBC LEUKOCYTES [#/VOLUME] IN BLOOD BY AUTOMATED COUNT 9.7 4.0 - 11.0 01/11 Specimen Type: BLOOD No comment entered. Ordering Provider: ANDREA WOLF Report Released Date/Time: Jan 10, 2025 02:40 PM Reporting Lab: [facility] [address] Performing Lab: [facility] [address] [place] [facility] CBC ERYTHROCYTE S [#/VOLUME] IN BLOOD BY AUTOMATED COUNT 4.50 4.60 - 6.20 01/11 L Specimen Type: BLOOD No comment entered. Ordering Provider: ANDREA WOLF Report Released Date/Time: Jan 10, 2025 02:40 PM Reporting Lab: [facility] [address] Performing Lab: [facility] [address] [place] [facility] CBC HEMOGLOBIN [MASS/VOLUM E] IN BLOOD 12.9 g/dL 13.5 - 17.9 01/11 L Specimen Type: BLOOD No comment entered. Ordering Provider: ANDREA WOLF Report Released Date/Time: Jan 10, 2025 02:40 PM Reporting Lab: [facility] [address] Performing Lab: [facility] [address] [place] [facility] CBC HEMATOCRIT [VOLUME FRACTION] OF BLOOD BY AUTOMATED COUNT 42.3 41.0 - 54.0 01/11 Specimen Type: BLOOD No comment entered. Ordering Provider: ANDREA WOLF Report Released Date/Time: Jan 10, 2025 02:40 PM Reporting Lab: [facility] [address] Performing Lab: [facility] [address] [place] [facility] CBC MCV [ENTITIC VOLUME] BY AUTOMATED COUNT 94.0 fL 80.0 - 100.0 01/11 Specimen Type: BLOOD No comment entered. Ordering Provider: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 Encounter [id number] [id number] SHELLI KIM 01/10 [facility] [place] [facility] Inpatient Encounter [id number] [id number] SYSTEM,CIS -ARK 01/10 [facility] [place] [facility] Inpatient Encounter [id number] [id number] SHELLI KIM 01/10 [facility] [place] [facility] OFFICE O/P NEW MOD 45 MIN 77164-5.61 [id number] Diagnos is: ICD-10- CM Z01.818 Encount er for other preproc edural examina GUILLAUME Alba 01/10 [facility] [place] [facility] Inpatient Encounter [id number] [id number] Joleen OLSON C 01/10 [place] [facility] [place] [facility] Inpatient Encounter [id number] [id number] 01/11 [place] [facility] [place] [facility] Inpatient Encounter [id number] [id number] SYSTEM,CIS -ARK 01/11 [place] [facility] [place] [facility] Inpatient Encounter [id number] AROLDO FRAIRE C 01/11 [place] [facility] OT EVAL MOD COMPLEX 45 MIN 39944-4.61 [id number] Diagnos is: ICD-10- CM Z73.6 Limitat ion of activit ies due to disabil LIDA Alexander 01/11 [place] [facility] THERAPEUTI C EXERCISES [id number] [id number] Diagnos is: ICD-10- CM Z96.611 Presenc e of right artific ial shoulde r ANGELA Douglas 01/11 [place] [facility] CASE MANAGEMENT [id number] [id number] Diagnos is: ICD-10- CM Z65.9 Problem related to 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 psychos ocial circums MYAH Walker 01/11 [place] [facility] [place] [facility] Inpatient Encounter [id number] [id number] CANDIDO ROSA 01/11 [place] [facility] [place] [facility] Inpatient Encounter [id number] Irene SINCLAIR 01/11 [place] [facility] SBSQ HOSP IP/OBS MODERATE 35 [id number] [id number] Diagnos is: ICD-10- CM E11.40 Type 2 diabete s mellitu s with diabeti c neuropa thy, unsp FORREST,MIKAEL D ASHVIN 01/11 [facility] Outpatient Encounter [id number] [id number] 01/11 [facility] [place] [facility] Inpatient Encounter [id number] [id number] 01/11 [facility] OFF/OP EST FEBRUARY X REQ PHY/QHP 88639-5.61 [id number] Diagnos is: ICD-10- CM Z48.89 Encount er for other specifi ed surgica l afterca re CLARA TYLER AM I 01/11 [facility] [facility] PH1 ASSMT&MGMT NQHP 11-20 46131-5.61 [id number] Diagnos is: ICD-10- CM M19.019 Primary osteoar thritis , 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 margarita ZHU,ER IN J 01/15 [facility] Procedures Combined list of: 1) Procedures from Department of Veterans Affairs facilities going back up to thelast 18 months, not all CT non-surgical procedures are included; 2) All procedures from the Department of Defense facilities. Procedure Procedure Type Code Date Perfomer Comments Sourc e Right reverse TSA RECONSTRUCT SHOULDER JOINT [id number] RA RAMU KIM A Other Procedure CPT Code(s): GR-SERVICE BY VA RESIDENT, RT-RIGHT SIDE [facility] Social History Combined list of available smoking, tobacco, and other social history from Department of Defense and Veterans Affairs facilities. Social History Type Response Date Comment Sourc e Tobacco smoking status NHIS VA-TOBACCO QUIT 15 YRS OR MORE 11/19/2023 [facility] History of tobacco use CT-TOBACCO FORMER USER 11/19/2023 [facility] History of tobacco use CT-TOBACCO FORMER USER 01/28/2023 [facility] History of tobacco use CT-TOBACCO QUIT 5 TO < 15 YRS 10/30/2021 [facility] History of tobacco use CT-TOBACCO QUIT 5 TO < 15 YRS 08/17/2019 [facility] History of tobacco use FORMER TOBACCO US ER 7Y OR GREATER 01/06/2018 [facility] History of tobacco use FORMER TOBACCO US ER 7Y OR GREATER 01/28/2017 [facility] History of tobacco use FORMER TOBACCO US ER 7Y OR GREATER 01/21/2016 [facility] History of tobacco use FORMER TOBACCO US ER 7Y OR GREATER 04/02/2015 [facility] History of tobacco use FORMER TOBACCO US ER 7Y OR GREATER 03/01/2014 [facility] History of tobacco use CDM COPD TOBACCO NON-USER 09/18/2013 [facility] History of tobacco use 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 Additional future care activities may be listed in the Assessment and Plan section. Date/Time Care Activity Care Activity Detail Facili ty 01/24/2025 AMBULATORY - SURGERY AMBULATORY - SURGERY [facility] Advance Directives List of completed, amended, or rescinded Advance Directives on record at [facility] facilities. An actual copy of the Directive is not included. Date Advance Directive Provider Source 03/08/2023 ADVANCE DIRECTIVE ODILIA CHRISTIANSON [facility] 05/02/2014 ADVANCE DIRECTIVE DISCUSSION QUEENIE SAENZ [facility] 05/24/2013 CLINICAL WARNING GALINDO STUART [facility] 09/21/2011 ADVANCE [address] JORDAN ZHANG [facility]
--- OUTSIDE RECORDS SUMMARY | 2025-01-16 08:05 | XMS_ITS | Encounter Summary ---
Author Name [facility] Address [address] [place] [address] Care Team Providers Care Outreach Worker Name Role Phone ZENY MARTIN Primary [...] PART A Oct 18, 2013 PART A [id number] Mary ROSA PATIENT MEDICARE (WNR) MEDICARE (M) PART B Oct 18, 2013 PART B [id number] [phone] Mary ROSA EORODNEY PATIENT MEDICARE (WNR) MEDICARE (M) PART A Oct 18, 2013 PART A [id number] Mary ROSA PATIENT Selected Encounter This section includes the information on record at [place] for the Encounter. Date/Time Encounter Type Encounter Description Reason Provider Source Jun 21, 2024 01:00 PM OFF/OP CNSLTJ NEW/EST MOD 40 ORTHO/JOINT SURG ICD-10-CM M19.031 Primary osteoarthritis , right wrist DEMETRICE REEDER Encounter Template Text not used by [facility] Assessments - Encounter Diagnoses This section includes the primary and secondary diagnoses documented for the Encounter. Date/Time Primary/Secondary Diagnosis Diagnosis Name Provider Source Jun 21, 2024 01:38 PM PRIMARY Primary osteoarthritis, right wrist DEMETRICE REEDER [facility] Plan of Treatment: Future Appointments (+ 6 months) and Future Tests (+/- 45 days) The Plan of Treatment section includes future care activities for the patient from all [place] treatmentfacilities. This section includes future appointments and future orders which are active, pending or scheduled. Future Appointments This section includes appointments that were scheduled to occur 6 months from the date of the Encounter, up to a maximum of 20 appointments. The data comes from all [place] treatment facilities. Appointment Date/Time Appointment Type Appointme nt Facility Name Jun 29, 2024 07:00 AM AMBULATORY - NONE [facility] Jun 29, 2024 10:00 AM [facility] Jul 13, 2024 10:00 AM [facility] Jul 27, 2024 10:00 AM [facility] - [facility]IC[facility] Aug 02, 2024 03:00 PM AMBULATORY - SURGERY [facility] Aug 14, 2024 01:00 PM AMBULATORY - SURGERY [facility] Aug 18, 2024 02:00 PM [facility] - NONE [facility] Sep 07, 2024 10:00 AM [facility]ORY - [facility]IC[facility] [facility] Sep 18, 2024 02:00 PM AMBULATORY - SURGERY [facility] Sep 19, 2024 10:30 AM AMBULATORY - SURGERY [facility] Sep 22, 2024 02:40 PM AMBULATORY - SURGERY [facility] Sep 22, 2024 03:00 PM AMBULATORY - [facility] Sep 25, 2024 11:15 AM AMBULATORY - SURGERY [facility] Sep 25, 2024 12:15 PM AM[facility]ULATORY - [place]IC[facility] Sep 25, 2024 01:00 PM AMBULATORY - [place]IC[facility] [facility] Sep 25, 2024 02:00 PM AMBULATORY - [facility]IC[facility] Sep 25, 2024 02:15 PM AMBULATORY - [facility]IC[facility] Oct 05, 2024 10:00 AM AMBULATORY - [place]IC[facility] [facility] Nov 02, 2024 10:00 AM AMBULATORY - MEDICINE [facility] Nov 02, 2024 11:15 AM AMBULATORY - NONE [facility] Social History: Smoking Status (Most current) and Tobacco Use (All prior to encounter date) This section includes the most current, and the historical, smoking and tobacco- related health factors from the [place] facility where the Encounter took place. Current Smoking Status This section includes the most current smoking, or tobacco-related health factor, from the [place] facility where the Encounter took place. Date/Time Current Smoking Status Comment Facil ity Nov 19, 2023 08:00 AM VA-TOBACCO FORMER USER [facility] Tobacco Use History This section includes a history of the smoking, or tobacco-related health factors, that were collected on or before the date of the Encounter. The data comes from the [place] facility where the Encounter took place. Date/Time Smoking Status/Tobacco Use Comment F acility Nov 19, 2023 08:00 AM VA-TOBACCO QUIT 15 YRS OR MORE [facility] Jan 28, 2023 09:45 AM VA-TOBACCO FORMER USER [facility] Jan 28, 2023 09:45 AM VA-TOBACCO QUIT 15 YRS OR MORE [facility] Oct 30, 2021 03:00 PM VA-TOBACCO FORMER USER [facility] Oct 30, 2021 03:00 PM VA-TOBACCO QUIT 5 TO < 15 YRS [facility] Aug 17, 2019 11:38 AM VA-TOBACCO FORMER USER [facility] Aug 17, 2019 11:38 AM VA-TOBACCO QUIT 5 TO < 15 YRS [facility] Jan 06, 2018 02:39 PM FORMER TOBACCO USER 7Y OR GREATE R [facility] Jan 28, 2017 12:47 PM FORMER TOBACCO USER 7Y OR GREATE R [facility] Jan 21, 2016 03:04 PM FORMER TOBACCO USER 7Y OR GREATE R [facility] Apr 02, 2015 02:05 PM FORMER TOBACCO USER 7Y OR GREATE R [facility] March 01, 2014 09:10 AM FORMER TOBACCO USER 7Y OR GREATE R [facility] Sep 18, 2013 09:13 AM CDM COPD TOBACCO NON-USER [facility] May 28, 2013 11:05 AM LIFETIME NON-TOBACCO USER [facility] May 25, 2013 12:08 PM FORMER TOBACCO USER 7Y OR GREATE R [facility] Jun 18, 2009 09:48 AM FORMER TOBACCO USER 7Y OR GREATE R [facility] Aug 24, 2008 10:10 AM FORMER TOBACCO USE >1Y <7Y [facility] Advance Directives: All historical and current Section Date Range: From patient's date of to the date document was created. This section includes ALL of a patient's completed or amended [place] Advance and Rescinded Directives. The entries below indicate that a directive exists for the patient, but an actual copy is not included with this document. The data comes from all [place] facilities. Date Advance Directives Provider Source March 08, 2023 ADVANCE DIRECTIVE [facility] May 02, 2014 ADVANCE DIRECTIVE DISCUSSION QUEENIE SAENZ [facility] May 24, 2013 CLINICAL WARNING GALINDO STUART [facility] Sep 21, 2011 ADVANCE DIRECTIVE JORDAN ZHANG [facility] Encounter Notes: All associated encounter notes This section contains the clinical notes associated to the Encounter. Date/Time Encounter Note(s) Provider Source Jun 21, 2024 01:29 PM ORTHOPEDIC SURGERY CONSULT: LOCAL TITLE: ORTHOPEDIC CONSULT STANDARD TITLE: ORTHOPEDIC SURGERY CONSULT DATE OF NOTE: JUN 21, 2024@13:29 ENTRY DATE: JUN 21, 2024@13:29:19 AUTHOR: DEMETRICE REEDER COSIGNER: URGENCY: STATUS: COMPLETED Chief Complaint(s): Right wrist pain. HPI: Patient is a pleasant 29-year-old male who presents today in consultation for right wrist pain. Patient thought that this appointment was for his shoulder, he does have a follow-up appointment with Contreras Truong PA-C on August 02, 2024 for his shoulder. Regards to his right wrist patient states this has been bothering him for 40 years he describes the pain as sharp when he moves his wrist, it also causes him some difficulty with sleeping at night. He does take Tylenol 500 mg tablets for pain he finds it does help some.. Has not had any surgery on the hand or wrist, he did have an injection in the past which he found of limited benefit only lasting for couple days. He did have a fall recently he states that due to being unsteady on his new total knee. He has wrist brace that he wears at night in particular but he will wear them during the day if he has pain unfortunately cannot drive with him. Past medical history/Active Problems: Active Problems: Active problems - Computerized Problem List is the source for the followin. Diabetic peripheral neuropathy (SNOMED CT 009258727) 2. Sleep apnea (SNOMED CT 96199028) - iVAPS: R: 18, PS: 7-16, EPAP+14, Mirag Quatt Med 3. Severe chronic obstructive pulmonary disease (SNOMED CT 307408149) 4. Personal History of Tobacco Use - Quit 2003, Smoked x 25 years 5. Inguinial Hernia Repair 6. Benign essential hypertension (SNOMED CT 6050096) 7. Erectile dysfunction (SNOMED CT 048161973) 8. Osteoarthrosis involving the spine 9. Hyperlipidemia (SNOMED CT 90266771) 10. Polyp of colon (SNOMED CT 93718480) 11. Open Angle, Primary 12. Morbid obesity (SNOMED CT 504727192) 13. History of adenomatous polyp of colon - By 2008 colonoscopy 14. Hypothyroidism 15. Mild memory disturbance - Due to multiple medical etiologies; Normal NPT 2014 16. History of repair of umbilical hernia 17. Chronic pain following right total knee arthroplasty (SNOMED CT 377413831132 18. Hip pain 19. Iron deficiency anemia 20. Diabetes mellitus type 2 without retinopathy (SNOMED CT 9252411273123) 21. Hypokalemia 22. Obesity 23. Ventricular bigeminy 24. Acute non-ST segment elevation myocardial infarction 25. PVC - premature ventricular contraction (SNOMED CT 078513897) 26. Coronary arteriosclerosis - s/p FRED x1 [...] (Jan 23, 2016) DULOXETINE (Feb 11, 2016) Active Outpatient Medications (including Supplies): Active Outpatient Medications Status 1) ACCU-CHEK GUIDE (GLUCOSE) TEST STRIP USE 1 STRIP ACTIVE EVERY DAY 2) ASPIRIN 81MG EC TAB TAKE ONE TABLET BY MOUTH EVERY ACTIVE DAY TO PREVENT BLOOD CLOTS 3) BANDAGE TUBULAR ELASTIC SZ E C#853244 USE 1 BANDAGE ACTIVE TOPICALLY DIRECTED FOR EDEMA 4) BRIMONIDINE 0.2%/BRINZOLAMID 1% OPH SUSP INSTILL ONE ACTIVE DROP IN BOTH EYES TWO TIMES A DAY FOR GLAUCOMA 5) CATH,INTERM COUDE 14FR COLOPLAST #61609 USE 1 ACTIVE CATHETER TOPICALLY DIRECTED 6) CHOLECALCIF 25MCG (D3-1,000UNIT) TAB TAKE ONE TABLET ACTIVE BY MOUTH EVERY DAY 7) DESONIDE 0.05% CREAM APPLY THIN LAYER TOPICALLY TWICE ACTIVE A DAY FOR RASH FOR 2 WEEKS OR UNTIL REDNESS AND ITCHING ARE IMPROVED 8) EMPAGLIFLOZIN 25MG TAB TAKE ONE TABLET BY MOUTH EVERY ACTIVE DAY 9) FERROUS GLUCONATE 324MG TAB TAKE ONE TABLET BY MOUTH ACTIVE EVERY DAY FOR IRON SUPPLEMENT AT LEAST 4 HOURS AWAY FROM LEVOTHYROXINE 10) FUROSEMIDE 20MG TAB TAKE ONE TABLET BY MOUTH EVERY ACTIVE DAY 11) ISOSORBIDE MONONITRATE 60MG SA TAB TAKE ONE TABLET BY ACTIVE MOUTH EVERY DAY 12) KETOCONAZOLE 2% SHAMPOO SHAMPOO SCALP, AVALOS, CHEST ACTIVE TOPICALLY 3 TIMES WEEKLY *LATHER FOR 5 MINUTES THEN RINSE* 13) LATANOPROST 0.005% OPH SOLN INSTILL 1 DROP IN BOTH ACTIVE EYES AT BEDTIME FOR GLAUCOMA REFRIGERATE BOTTLE UNTIL OPENED. 14) LEVOTHYROXINE NA (SYNTHROID) 25MCG TAB TAKE ONE ACTIVE TABLET BY MOUTH EVERY DAY FOR THYROID - TAKE AT LEAST FOUR HOURS AWAY FROM FERROUS GLUCONATE 15) LIDOCAINE 5% OINT APPLY MODERATE AMOUNT TOPICALLY ACTIVE EVERY DAY NEEDED FOR PAIN 16) LORATADINE 10MG TAB TAKE ONE TABLET BY MOUTH EVERY ACTIVE DAY FOR ALLERGIES 17) METFORMIN HCL 1000MG TAB TAKE ONE AND ONE-HALF ACTIVE (S) TABLETS BY MOUTH EVERY MORNING AND TAKE ONE TABLET EVERY EVENING 18) METOPROLOL SUCCINATE 25MG SA TAB TAKE ONE-HALF TABLET ACTIVE BY MOUTH EVERY DAY 19) OMEPRAZOLE 20MG EC CAP TAKE ONE CAPSULE BY MOUTH ACTIVE EVERY DAY FOR HEARTBURN 20) ROSUVASTATIN CA 40MG TAB TAKE ONE TABLET BY MOUTH AT ACTIVE BEDTIME 21) SEMAGLUTIDE 1MG/0.75ML INJ PEN 3ML INJECT 1MG UNDER ACTIVE THE SKIN EVERY WEEK ON WEDNESDAYS 22) TIOTROPIUM 18MCG INHL CAP 30 INHALE ONE CAPSULE IN ACTIVE INHALER BY INHALATION EVERY DAY FOR BREATHING 23) TOPIRAMATE 50MG TAB TAKE THREE TABLETS BY MOUTH TWICE ACTIVE A DAY TAKE AT NOON AND BEFORE DINNER TO REDUCE CRAVINGS. 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 Alcohol use - None Recreational drug use - None Current tobacco use - None. Diet - DM II Activity level - Amb with a rolling walker. PHYSICAL EXAM: General Appearance: Well Developed, Well Nourished, NAD, BMI - 27.23 Vital Signs:BP: 112/75 (05/12/2024 13:19) P: 59 (05/12/2024 13:19) R: 18 (05/12/2024 13:19) T: 97.7 F [36.5 C] (05/12/2024 13:19) WGT: 189.4 lb [85.91 kg] (06/08/2024 11:19) Musculoskeletal: On exam there is no evidence of synovitis or swelling across the small joints of either hands or wrists. Interosseous muscle strength intact moderately weak against resistance, pincer strength intact but moderately weak against resistance. He has good fist formation but again globally weak boom stick man strength. The right wrist has flexion to about 70 degrees extension to about 45 degrees. He does have sharp pain with palpation over the first CMC and STT joint area at the snuffbox. Labs: HGB A1C: LAB TESTS SELECTED Collection DT Specimen Test Name Result Units Ref Range 03/27/2024 13:00 BLOOD !! HEMOGLOBIN A1C 7.1 H % 4.0 - 6.0 Imaging: MAY 12, 2024 Biology Lecturer E-Sig: Report: WRIST RIGHT 3 VIEWS OR MORE HISTORY: r/o djd COMPARISON: Radiographs of the right wrist dated 07/05/2020 TECHNIQUE: 3 view(s) of the right wrist, submitted to the [place] [facility] ([facility]) for interpretation. FINDINGS/ Impression: No fracture identified. Alignment is within normal limits. Severe degenerative changes of osteoarthritis involving the triscaphe joint. There is more mild degenerative change seen at the first carpometacarpal joint. READING PHYSICIAN: Marino Daily MD -[id number] Diagnosis/Treatment Plan: Diagnosis: Right wrist STT arthritis. Comments: I did review patient's x-rays with them. Compare them to the old x-rays from 2020 which does show advancement in the STT arthritis. We discussed both surgical and nonsurgical options, patient is not interested in surgery based on the restrictions afterwards. He has had cortisone injections in the past which he found ineffective. He is interested in trying the topical diclofenac and would like new replacement splints which is reasonable. Plan: 1. Topical diclofenac to both wrist up to 4 times daily as needed for arthritis pain. 2. Consult to prosthetics for replacement wrist splints. 3. Patient can follow-up in orthopedics on an as-needed basis. DISCLAIMER: This dictation was completed using [employer]. Although I attest that I diligently review and edit my dictations, insensible words or phrases may still be present. /kyle/ DEMETRICE REEDER CNP APRN, CNP Signed: 06/21/2024 13:38 DEMETRICE REEDER [facility]
--- OUTSIDE RECORDS SUMMARY | 2025-01-16 08:05 | XMS_ITS | Encounter Summary ---
Author Name [facility] [place] [facility] [place] [facility] [place] Address [address] [place] [address] Care Team Providers Care Event Marketing Assistant Name Role Phone ZENY MARTIN Primary Care [...] PART A Oct 18, 2013 PART A [id number] [phone] Mary ROSA PATIENT MEDICARE (WNR) MEDICARE (M) PART B Oct 18, 2013 PART B [id number] [phone] Mary ROSA EORODNEY PATIENT MEDICARE (WNR) MEDICARE (M) PART A Oct 18, 2013 PART A [id number] Mary ROSA PATIENT Selected Encounter This section includes the information on record at [place] for the Encounter. Date/Time Encounter Type Encounter Description Reason Pro vider Source Dec 15, 2024 03:45 PM Outpatient Encounter PRIMARY CARE/MEDICINE IHE Encounter Template Text not used by [place] Plan of Treatment: Future Appointments (+ 6 [...] comes from all [facility]. Appointment Date/Time Appointment Type Appointme nt Facility Name Dec 18, 2024 07:00 AM AM[place]ORY [place]ONE [place] [facility] Dec 18, 2024 01:00 PM [place] [facility] Dec 18, 2024 01:15 PM [place] [facility] Dec 18, 2024 01:45 PM [place] [facility] Dec 18, 2024 02:00 PM [place]ORY [place] [facility] Dec 18, 2024 02:30 PM [place] [facility] Dec 19, 2024 11:00 AM AMBULATORY - REHAB MEDICIN [facility] Dec 27, 2024 07:00 AM [place] [place] [facility] Dec 28, 2024 10:00 [facility] Dec 28, 2024 11:00 AM AMBULATORY - REHAB MEDICIN E [facility] Jan 01, 2025 01:30 PM AMBULATORY - REHAB MEDICIN E [facility] Jan 24, 2025 01:00 PM [place] [facility] Jan 25, 2025 10:00 AM [facility] [place] [facility] Jan 25, 2025 11:00 AM AMBULATORY - REHAB MEDICIN E [facility] Feb 01, 2025 10:00 [facility] Feb 01, 2025 11:00 [facility] Feb 08, 2025 10:00 AM [place] [facility] February 22, 2025 10:00 AM [place] [facility] February 23, 2025 11:00 [facility] February 23, 2025 11:30 AM AMBULATORY - SURGERY [facility] Active, Pending, [...] of theEncounter. The data comes from all [place] treatment facilities. Test Date/Time Test Type Test Details Facility Name Dec 11, 2024 11:04 AM Consult Order PT PHYSICA L THERAPY OUTPT ORTHO SURGERY [facility] Jan 10, 2025 12:00 AM Laboratory - Blood Bank Order TYPE & SCREEN - LAB BLOOD WC [facility] Jan 12, 2025 08:18 AM Consult Order [facility] Jan 22, 2025 12:00 AM Laboratory - Chemi stry Order BASIC METABOLIC PANEL+MG PLASMA SP [facility] Jan 22, 2025 12:00 AM Laboratory - Chemi stry Order HEMOGLOBIN A1C BLOOD SP ONCE [facility] Lab Results: +/- 30 days of the encounter This section includes the Chemistry and Hematology Lab Results on record with [place] for the patient. Radiology Reports and Pathology Reports are provided separately, in subsequent sections. Lab Results This section contains the Chemistry/Hematology Results that were resulted 30 days before or 30 daysafter the date of the Encounter. Date/Time Source Result Type Result - Unit Interpretation Reference Range Comment Jan 11, 2025 12:21 PM [facility] FINGERSTICK GLUCOSE Specimen Type: BLOOD Comment: Save Result Nurse Notified Ordering Provider: ANDREA WOLF Report Released Date/Time: Jan 11, 2025 12:51 PM Reporting Lab: [facility] [id number] Performing Lab: [facility] [phone] FINGERSTICK GLUCOSE 246 mg/dL H 70-100 Jan 11, 2025 07:37 AM [facility] CBC Specimen Type: BLOOD No comment entered. Ordering Provider: ANDREA WOLF Report Released Date/Time: Jan 10, 2025 02:40 PM Reporting Lab: [facility] [phone] Performing Lab: [facility] [phone] WBC 9.7 4.0-11.0 RBC 4.50 L 4.60-6.20 HGB 12.9 g/dL L 13.5-17.9 HCT 42.3 41.0-54.0 MCV 94.0 fL 80.0-100.0 MCH 28.7 pg 27.0-33.0 MCHC 30.5 g/dL L 32.0-37.5 PLT 174 150-400 MPV 11.5 fL 9.1-13.0 RDW 13.3 11.5-14.5 Jan 11, 2025 07:37 AM [facility] BASIC METABOLIC PANEL+MG Specimen Type: PLASMA No comment entered. Ordering Provider: ANDREA WOLF Report Released Date/Time: Jan 10, 2025 02:40 PM Reporting Lab: [facility] [phone] Performing Lab: [facility] [phone] CREATININE 1.0 mg/dL 0.7-1.2 UREA NITROGEN 21 mg/dL 8-26 GLUCOSE 203 mg/dL H 70-100 SODIUM 136 mmol/L 136-145 POTASSIUM 4.1 mmol/L 3.5-5.1 CHLORIDE 102 mmol/L 98-107 CO2 23 mmol/L 22-29 CALCIUM 8.8 mg/dL 8.4-10.2 MAGNESIUM 2.0 mg/dL 1.6-2.6 ANION GAP 11 mmol/L 5-15 .CREAT EGFR(CKD-EPI) 80 >60 Jan 11, 2025 06:10 AM [facility] FINGERSTICK GLUCOSE Specimen Type: BLOOD Comment: Save Result Nurse Notified Ordering Provider: Lilli CHRISTENSEN Report Released Date/Time: Jan 11, 2025 07:41 AM Reporting Lab: [facility] [id number] Performing Lab: [facility] [phone] FINGERSTICK GLUCOSE 220 mg/dL H 70-100 Jan 10, 2025 08:11 PM [facility] FINGERSTICK GLUCOSE Specimen Type: BLOOD Comment: Save Result Nurse Notified Ordering Provider: Lilli CHRISTENSEN Report Released Date/Time: Jan 10, 2025 08:36 PM Reporting Lab: [facility] [phone] Performing Lab: [facility] [address] FINGERSTICK GLUCOSE 239 mg/dL H 70-100 Jan 10, 2025 04:30 PM [facility] FINGERSTICK GLUCOSE Specimen Type: BLOOD Comment: Save Result Nurse Notified Ordering Provider: Lilli CHRISTENSEN Report Released Date/Time: Jan 10, 2025 05:34 PM Reporting Lab: [facility] [phone] Performing Lab: [facility] [address] FINGERSTICK GLUCOSE 190 mg/dL H 70-100 Jan 10, 2025 02:40 PM [facility] FINGERSTICK GLUCOSE Specimen Type: BLOOD Comment: Save Result Nurse Notified Ordering Provider: BENIGNO KIM Report Released Date/Time: Jan 10, 2025 03:01 PM Reporting Lab: [facility] [phone] Performing Lab: [facility] [address] FINGERSTICK GLUCOSE 183 mg/dL H 70-100 Jan 10, 2025 08:35 AM [facility] PROTHROMBIN TIME/INR Specimen Type: PLASMA Comment: ~Draw on admission. Call IV team to draw on admission. Ordering Provider: BENIGNO KIM Report Released Date/Time: Jan 10, 2025 08:01 AM Reporting Lab: [facility] [phone] Performing Lab: [facility] [phone] .INR 0.9 0.8-1.1 .PT 10.9 s 9.4-12.5 Jan 10, 2025 08:35 AM [facility] CBC Specimen Type: BLOOD No comment entered. Ordering Provider: BENIGNO KIM Report Released Date/Time: Jan 10, 2025 08:01 AM Reporting Lab: [facility] [phone] Performing Lab: [facility] [address] WBC 6.6 4.0-11.0 RBC 5.00 4.60-6.20 HGB 14.5 g/dL 13.5-17.9 HCT 46.1 41.0-54.0 MCV 92.2 fL 80.0-100.0 MCH 29.0 pg 27.0-33.0 MCHC 31.5 g/dL L 32.0-37.5 PLT 172 150-400 MPV 10.9 fL 9.1-13.0 RDW 13.7 11.5-14.5 Jan 10, 2025 08:35 AM [facility] ACT PART THROMBO TIME Specimen Type: PLASMA Comment: ~Draw on admission. Call IV team to draw on admission. Ordering Provider: BENIGNO KIM A Report Released Date/Time: Jan 10, 2025 08:01 AM Reporting Lab: [facility] [phone] Performing Lab: [facility] [address] APTT 31.4 s 25.1-36.5 Jan 10, 2025 08:35 AM [facility] BASIC METABOLIC PANEL+MG Specimen Type: PLASMA No comment entered. Ordering Provider: BENIGNO KIM A Report Released Date/Time: Jan 10, 2025 08:01 AM Reporting Lab: [facility] [address] Performing Lab: [facility] [address] CREATININE 0.9 mg/dL 0.7-1.2 UREA NITROGEN 19 mg/dL 8-26 GLUCOSE 151 mg/dL H 70-100 SODIUM 138 mmol/L 136-145 POTASSIUM 3.9 mmol/L 3.5-5.1 CHLORIDE 106 mmol/L 98-107 CO2 23 mmol/L 22-29 CALCIUM 9.3 mg/dL 8.4-10.2 MAGNESIUM 2.0 mg/dL 1.6-2.6 ANION GAP 9 mmol/L 5-15 .CREAT EGFR(CKD-EPI) >90 >60 Jan 10, 2025 08:35 AM [facility] FINGERSTICK GLUCOSE Specimen Type: BLOOD Comment: Save Result Ordering Provider: BENIGNO KIM Report Released Date/Time: Jan 10, 2025 10:31 AM Reporting Lab: [facility] [phone] Performing Lab: [facility] [address] FINGERSTICK GLUCOSE 155 mg/dL H 70-100 Dec 18, 2024 12:16 PM [facility] ALBUMIN Specimen Type: PLASMA No comment entered. Ordering Provider: BENIGNO KIM A Report Released Date/Time: Sep 27, 2024 10:57 AM Reporting Lab: [facility] [address] Performing Lab: [facility] [address] ALBUMIN 4.4 g/dL 3.5-5.0 Dec 18, 2024 12:16 PM [facility] HEMOGLOBIN A1C Specimen Type: BLOOD Comment: [...] Sep 27, 2024 10:57 AM Reporting Lab: [facility] [address] Performing Lab: [facility] [address] HEMOGLOBIN A1C 7.1 H 4.0-6.0 Dec 18, 2024 12:16 PM [facility] PROTHROMBIN TIME/INR Specimen Type: PLASMA No comment entered. Ordering Provider: BENIGNO KIM A Report Released Date/Time: Sep 27, 2024 10:57 AM Reporting Lab: [facility] [address] Performing Lab: [facility] [address] .INR 0.9 0.8-1.1 .PT 10.3 s 9.4-12.5 Dec 18, 2024 12:16 PM [facility] BASIC METABOLIC PANEL+MG Specimen Type: PLASMA No comment entered. Ordering Provider: BENIGNO KIM A Report Released Date/Time: Sep 27, 2024 10:57 AM Reporting Lab: [facility] [address] Performing Lab: [facility] [phone] CREATININE 1.0 mg/dL 0.7-1.2 UREA NITROGEN 19 mg/dL 8-26 GLUCOSE 118 mg/dL H 70-100 SODIUM 139 mmol/L 136-145 POTASSIUM 4.1 mmol/L 3.5-5.1 CHLORIDE 104 mmol/L 98-107 CO2 25 mmol/L 22-29 CALCIUM 9.6 mg/dL 8.4-10.2 MAGNESIUM 2.1 mg/dL 1.6-2.6 ANION GAP 10 mmol/L 5-15 .CREAT EGFR(CKD-EPI) 80 >60 Dec 18, 2024 12:16 PM [facility] CBC & DIFF Specimen Type: BLOOD Comment: Automated Differential Performed Ordering Provider: BENIGNO KIM A Report Released Date/Time: Sep 27, 2024 10:57 AM Reporting Lab: [facility] [phone] Performing Lab: [facility] [address] WBC 9.5 4.0-11.0 RBC 5.05 4.60-6.20 HGB [...] and tobacco- related health factors from the [place] facility where the Encounter took place. Current Smoking Status This section includes the most current smoking, or tobacco-related health factor, from the [place] facility where the Encounter took place. Date/Time Current Smoking Status Comment Serina reece Nov 19, 2023 08:00 AM VA-TOBACCO FORMER USER [facility] Tobacco Use History This section includes a history of the smoking, or tobacco-related health factors, that were collected on or before the date of the Encounter. The data comes from the [place] facility where the Encounter took place. Date/Time Smoking Status/Tobacco Use Comment Lanie irby Nov 19, 2023 08:00 AM VA-TOBACCO QUIT 15 YRS OR MORE [facility] Jan 28, 2023 09:45 AM VA-TOBACCO FORMER USER [facility] Jan 28, 2023 09:45 AM VA-TOBACCO QUIT 15 YRS OR MORE [facility] Oct 30, 2021 03:00 PM VA-TOBACCO FORMER USER [facility] Oct 30, 2021 03:00 PM VA-TOBACCO QUIT 5 TO < 15 YRS [facility] Aug 17, 2019 11:38 AM VA-TOBACCO FORMER USER [facility] Aug 17, 2019 11:38 AM VA-TOBACCO QUIT 5 TO < 15 YRS [facility] Jan 06, 2018 02:39 PM FORMER TOBACCO USER 7Y OR GREATE R [facility] Jan 28, 2017 12:47 PM FORMER TOBACCO USER 7Y OR GREATE R [facility] Jan 21, 2016 03:04 PM FORMER TOBACCO USER 7Y OR GREATE R [facility] Apr 02, 2015 02:05 PM FORMER TOBACCO USER 7Y OR GREATE R [facility] March 01, 2014 09:10 AM FORMER TOBACCO USER 7Y OR GREATE R [facility] Sep 18, 2013 09:13 AM CDM COPD TOBACCO NON-USER [facility] May 28, 2013 11:05 AM LIFETIME NON-TOBACCO USER [facility] May 25, 2013 12:08 PM FORMER TOBACCO USER 7Y OR GREATE R [facility] Jun 18, 2009 09:48 AM FORMER TOBACCO USER 7Y OR GREATE R [facility] Aug 24, 2008 10:10 AM FORMER TOBACCO USE >1Y <7Y [facility] Advance Directives: All historical and current Section Date Range: From patient's date of to the date document was created. This section includes ALL of a patient's completed or amended [place] Advance and Rescinded Directives. The entries below indicate that a directive exists for the patient, but an actual copy is not included with this document. The data comes from all [place] facilities. Date Advance Directives Provider Source March 08, 2023 ADVANCE DIRECTIVE ODILIA CHRISTIANSON [facility] May 02, 2014 ADVANCE DIRECTIVE DISCUSSION QUEENIE SAENZ [facility] May 24, 2013 CLINICAL WARNING SHEYLARGALINDO Anisha [facility] Sep 21, 2011 ADVANCE DIRECTIVE JORDAN ZHANG [facility] Radiology Reports: +/- 30 days of [...] the Encounter. The data comes from all [place] treatment facilities. Date/Time Radiology Report Provider Source Jan 10, 2025 07:58 AM SHOULDER RIGHT 2-3 VIEWS: KEENA ROSA [id number] -[id number] M Exm Date: JAN 10, 2025@07:58 Req Phys: ARMINDA KIMHECTOR Macias Loc: OR-PACU/01-10-2025@15:42 Img Loc: MAIN X-RAY Service: [place] [address] (Case [id number] COMPLETE) SHOULDER RIGHT 2-3 VIEWS (RAD Detailed) CPT:47237 Proc Modifiers : PORTABLE EXAM, OPERATING ROOM EXAM Reason for Study: right reverse TSA Clinical History: OR 6 shoulder rotator cuff arthropathy My pager number on record is: . I confirm that the pager number/cell phone number above is correct for reporting critical results. My correct contact # for critial results is:Valerio KIM [phone] Trainees only: Enter your staff provider's info here: LAST CREATININE 1.0 (12/18/24) Report Status: Verified Date Reported: JAN 10, 2025 Date Verified: JAN 10, 2025 Sock Lining Examiner E-Sig:/ES/MIRANDA BROOKE MD Report: EXAMINATION: SHOULDER RIGHT 2-3 VIEWS 01/10/2025 7:58 AM INDICATION: right reverse TSA Impression: Right reverse TSA. Components appear well seated. Report Sign Date/Time: 01/10/2025 3:39 PM Primary Interpreting Staff: MIRANDA BROOKE MD, RADIOLOGIST (Sock Lining Examiner) /RTS MIRANDA BROOKE [facility] Encounter Notes: All associated encounter notes This section contains the clinical notes associated to the Encounter. Date/Time Encounter Note(s) Provider Source Dec 15, 2024 03:45 PM HOME HEALTH REFERR AL NOTE: LOCAL TITLE: [facility] STANDARD TITLE: HOME HEALTH REFERRAL NOTE DATE OF NOTE: DEC 15, 2024@15:45 ENTRY DATE: DEC 15, 2024@15:45:52 AUTHOR: SHRUTHI ETIENNE COSIGNER: URGENCY: STATUS: COMPLETED HOME HEALTH CARE CERTIFICATION AND PLAN OF CARE SIGNED BY: Dr. Kelby Stahl [facility] Certification period From: 11/30/2024 To: 01/28/2025 /kyle/ SHRUTHI ETIENNE [facility] Signed: 12/15/2024 15:46 SHRUTHI ETIENNE [facility]
--- OUTSIDE RECORDS SUMMARY | 2025-01-16 08:05 | XMS_ITS | Encounter Summary ---
Author Name [facility] Address [address] [place] [address] Care Team Providers Care Associate Dean Name Role Phone ZENY MARTIN Primary Care [...] PART A Oct 18, 2013 PART A [id number] [phone] Mary ROSA PATIENT MEDICARE (WNR) MEDICARE (M) PART B Oct 18, 2013 PART B [id number] [phone] Mary ROSA PATIENT MEDICARE (WNR) MEDICARE (M) PART A Oct 18, 2013 PART A [id number] Mary ROSA PATIENT Selected Encounter This section includes the information on record at [place] for the Encounter. Date/Time Encounter Type Encounter Description Reason Provider Source Mar 27, 2024 02:00 PM OFFICE O/P EST MOD 30 MIN ENDOCRINOLOGY ICD-10-CM E66.01 Morbid (severe) obesity due to excess calories KRISTEN BARRETO Encounter Template Text not used by [place] Assessments - Encounter Diagnoses This section includes the primary and secondary diagnoses documented for the Encounter. Date/Time Primary/Secondary Diagnosis Diagnosis Name Provider Source Mar 27, 2024 01:50 PM PRIMARY Morbid (severe) obesity due to excess calories KRISTEN BARRETO [facility] Mar 27, 2024 01:50 PM SECONDARY Hypothyroidism, unspecified KRISTEN BARRETO [facility] Mar 27, 2024 01:50 PM SECONDARY Type 2 diabetes mellitus with diabetic neuropathy, unsp KRISTEN BARRETO [facility] Mar 27, 2024 01:50 PM SECONDARY Type 2 diabetes mellitus with unspecified complications KRISTEN BARRETO [facility] Plan of Treatment: Future Appointments (+ 6 months) and Future Tests (+/- 45 days) The Plan of Treatment section includes future care activities for the patient [facility] This section includes future appointments and future orders which are active, pending or scheduled. Future Appointments This section includes appointments that were scheduled to occur 6 months from the date of the Encounter, up to a maximum of 20 appointments. The data comes from all [facility]. Appointment Date/Time Appointment Type Appointme nt Facility Name Apr 04, 2024 12:45 PM AMBUL[place]ORY - NONE [place] [facility] Apr 06, 2024 10:00 AM AMBULATORY - [place]ICINE [place] [facility] Apr 14, 2024 01:00 PM AMBUL[place]ORY - [place] [facility] Apr 27, 2024 10:00 AM AMBULATORY - [place]ICINE [place] [facility] May 11, 2024 10:00 AM AMBULATORY - [place]ICINE [place] [facility] May 12, 2024 01:30 PM AMBULATORY - [place]ICINE [place] [facility] May 12, 2024 02:30 PM AMBULATORY - NONE [place] [facility] May 25, 2024 10:00 AM AM[place]UL[place]ORY [place]ICINE [place] [facility] May 30, 2024 01:00 PM AMBULATORY - SURGERY [place] [facility] May 30, 2024 01:45 PM AMBULATORY - NONE [place] [facility] Jun 08, 2024 10:00 AM AMBUL[place]ORY - [place]ICINE [place] [facility] Jun 20, 2024 07:00 AM AMBULATORY - NONE [place] [facility] Jun 21, 2024 01:00 PM AMBULATORY - SURGERY [place] [facility] Jun 21, 2024 02:15 PM AMBULATORY - NONE [place] [facility] Jun 29, 2024 07:00 AM AMBULATORY - NONE [place] [facility] Jun 29, 2024 10:00 AM AMBULATORY - MEDICINE ANDREW FERRARA [facility] Jul 13, 2024 10:00 AM AMBULATORY - MEDICINE ANDREW DALALIS [facility] Jul 27, 2024 10:00 AM AMBULATORY - MEDICINE ANDREW DALALIS [facility] Aug 02, 2024 03:00 PM AMBULATORY - SURGERY PATRICIA ALVAREZ [facility] Aug 14, 2024 01:00 PM AMBULATORY - SURGERY [facility] Active, Pending, and Scheduled Orders This [...] Date/Time Test Type Test Details Facility Name February 25, 2024 12:00 AM Laboratory - Chemi stry Order BASIC METABOLIC PANEL+MG PLASMA SP ONCE [facility] February 25, 2024 12:00 AM Laboratory - Chemi stry Order HEMOGLOBIN A1C BLOOD SP ONCE [facility] February 25, 2024 12:00 AM Laboratory - Chemi stry Order LIPID PANEL,NON-FASTING PLASMA SP ONCE [facility] February 25, 2024 12:00 AM Laboratory - Chemi stry Order MICROALBUMIN/CREATININ E RATIO URINE URINE SP ONCE [facility] Lab Results: +/- 30 days of [...] Result - Unit Interpretation Reference Range Comment Mar 27, 2024 01:[address] [facility] HEMOGLOBIN A1C Specimen Type: BLOOD Comment: Values obtained from A1C measurements can vary. For typical A1C assays, a reported value of 7.0 could actually be between 6.7 and 7.3 if measured by a reference method. A reported value of 9.0 could actually be between 8.7 and 9.3. Ref: http://www.ngs p.org/CAPdata. asp Ordering Provider: KRISTEN BARRETO Report Released Date/Time: Sep 28, 2023 07:33 AM Reporting Lab: [facility] [id number] Performing Lab: [facility] [id number] HEMOGLOBIN A1C 7.1 H 4.0-6.0 Mar 27, 2024 01:[address] [facility] BASIC METABOLIC PANEL+MG Specimen Type: PLASMA No comment entered. Ordering Provider: KRISTEN BARRETO Report Released Date/Time: Sep 27, 2023 02:33 PM Reporting Lab: [facility] [id number] Performing Lab: [facility] [id number] CREATININE 0.9 mg/dL 0.7-1.2 UREA NITROGEN 17 mg/dL 8-26 GLUCOSE 122 mg/dL H 70-100 SODIUM 138 mmol/L 136-145 POTASSIUM 3.9 mmol/L 3.5-5.1 CHLORIDE 104 mmol/L 98-107 CO2 26 mmol/L 22-29 CALCIUM 9.9 mg/dL 8.4-10.2 MAGNESIUM 2.0 mg/dL 1.6-2.6 ANION GAP 8 mmol/L 5-15 .CREAT EGFR(CKD-EPI ) >90 >60 Mar 27, 2024 01:[address] [facility] TSH W/REFLEX TO FREE T4 Specimen Type: PLASMA No comment entered. Ordering Provider: KRISTEN BARRETO Report Released Date/Time: Mar 27, 2024 01:44 PM Reporting Lab: [facility] [id number] Performing Lab: [facility] [phone] TSH 2.93 u[IU]/mL 0.35-4.94 Vital Signs: All taken on the encounter date This section contains inpatient and outpatient Vital Signs collected on the date of the Encounter. Date/Time Temperature Pulse Blood Pressure Respiratory Rate SP02 Pain Height Weight Body Mass Index Source Mar 27, 2024 01:25 PM 97.6 54 118/69 16 96 0 190.7 27 [place] [facility] Social History: Smoking Status (Most current) [...] chevy Nov 19, 2023 08:00 AM VA-TOBACCO QUIT [address] [facility] Tobacco Use History This section includes a history of the smoking, or tobacco-related health factors, that were collected on or before the date of the Encounter. The data comes from the [place] facility where the Encounter took place. Date/Time Smoking Status/Tobacco Use Comment F acility Nov 19, 2023 08:00 AM VA-TOBACCO QUIT [address] [facility] Jan 28, 2023 09:45 AM VA-TOBACCO FORMER USER [facility] Jan 28, 2023 09:45 AM VA-TOBACCO QUIT [address] [facility] Oct 30, 2021 03:00 PM VA-TOBACCO FORMER USER [facility] Oct 30, 2021 03:00 PM VA-TOBACCO QUIT 5 TO < [address] [facility] Aug 17, 2019 11:38 AM VA-TOBACCO FORMER USER [facility] Aug 17, 2019 11:38 AM VA-TOBACCO QUIT 5 TO < [address] [facility] Jan 06, 2018 02:39 PM FORMER TOBACCO USER 7Y OR GREATE R [facility] Jan 28, 2017 12:47 PM FORMER TOBACCO USER 7Y OR GREATE R [facility] Jan 21, 2016 03:04 PM FORMER TOBACCO USER 7Y OR GREATE R [facility] Apr 02, 2015 02:05 PM FORMER TOBACCO USER 7Y OR GREATE R [facility] March 01, 2014 09:10 AM FORMER TOBACCO USER 7Y OR GREATE R [facility] Sep 18, 2013 09:13 AM CDM COPD TOBACCO NON-USER [facility] May 28, 2013 11:05 AM LIFETIME NON-TOBACCO USER [facility] May 25, 2013 12:08 PM FORMER TOBACCO USER 7Y OR GREATE R [facility] Jun 18, 2009 09:48 AM FORMER TOBACCO USER 7Y OR GREATE R [facility] Aug 24, 2008 10:10 AM FORMER TOBACCO USE >1Y <7Y [facility] Advance Directives: All historical and current [...] March 08, 2023 ADVANCE DIRECTIVE ODILIA CHRISTIANSON [facility] May 02, 2014 ADVANCE DIRECTIVE DISCUSSION QUEENIE SAENZ [facility] May 24, 2013 [address] [facility] Sep 21, 2011 ADVANCE DIRECTIVE JORDAN ZHANG [facility] Radiology Reports: +/- 30 days of [...] treatment facilities. Date/Time Radiology Report Provider Source Apr 04, 2024 12:[address] (AP) ABDOMEN/PE LVIS (P): MOEKEENA ROYA [id number] -[id number] M Exm Date: APR 04, 2024@12:17 Req Phys: AMADEO SIEGEL Pat Loc: [facility] UROL CONSULT 2 CHRISTAL (Re Img Loc: CT IMAGING Service: [place] [address] (Case [id number] COMPLETE) CT (AP) ABDOMEN/PELVIS W/O CONTRA(CT Detailed) CPT:58283 Reason for Study: f/u stone/hydro surviellence imaging. Clinical History: Defer to radiologist for final protocol. f/u stone/hydro surviellence imaging Responsible provider name and phone number to notify for critical findings if other than user placing the order and pager listed below: User placing orders pager: [phone] LAST 3: Collection DT Specimen Test Name Result Units Ref Range 01/11/2024 11:16 PLASMA!! CREATININE 1.1 mg/dL 0.7 - 1.2 03/09/2023 05:30 PLASMA CREATININE 1.0 mg/dL 0.7 - 1.2 03/08/2023 06:26 PLASMA CREATININE 0.9 mg/dL 0.7 - 1.2 01/11/2024 11:16 PLASMA!! .CREAT EGFR(CKD-E 72 Ref: >=60 03/09/2023 05:30 PLASMA .CREAT EGFR(CKD-E 81 Ref: >=60 03/08/2023 06:26 PLASMA .CREAT EGFR(CKD-E >90 Ref: >=60 !! Indicates COMMENTS AVAILABLE...Refer to Interim Lab Report. Allergies: LISINOPRIL (February 18, 2009) LOSARTAN (February 18, 2009) AMLODIPINE (Jun 18, 2009) DEMEROL HYDROCHLORIDE INJECTION 50 MG/ML (March 04, 2014) GABAPENTIN (Jan 23, 2016) DULOXETINE (Feb 11, 2016) Report Status: Verified Date Reported: APR 09, 2024 Date Verified: APR 09, 2024 Glove Finisher E-Sig: Report: CT (AP) ABDOMEN/PELVIS W/O CONTRAST [PRINTSET] HISTORY: f/u stone/hydro surviellence imaging. COMPARISON: 01/11/2024 TECHNIQUE: CT of the abdomen and pelvis with multiplanar reformats was performed at the local [place] facility. 743 images were received by the [place] National NGenTecradiology Program (NTP) for interpretation. RADIATION DOSE (mGy*cm): 548 IV CONTRAST: Not administered. FINDINGS: Evaluation of solid organs is limited in the absence of intravenous contrast. Limited visualization of the lower thorax reveals no acute pathology. Chronically elevated left hemidiaphragm, unchanged. GE junction is unremarkable. Hepatomegaly without intraperitoneal dictation of mass lesions. Normal gallbladder spleen pancreas and adrenals. Atherosclerosis without infrarenal abdominal aortic aneurysm. No gastric esophageal dilatation mass lesions or wall thickening. Normal appendix. No ascites or adenopathy. Degenerative changes of the lumbosacral spine. Intact left hip arthroplasty in anatomic alignment; streak artifact diminishes diagnostic sensitivity in the adjacent tissues. Mild prostatomegaly. Pelvic phleboliths. Right: Multiple nonobstructing nephroliths with mild perinephric fat stranding. No mass lesions or hydronephrosis. No hydroureter. Left: Multiple nonobstructing nephroliths. Stable interpolar simple renal cyst. No mass lesions or hydronephrosis. No hydroureter. Urinary bladder: Nondistended without filling defects. Impression: Bilateral nonobstructing nephrolithiasis. READING PHYSICIAN: Ej Cabrera M.D. -[phone] 04/09/2024 11:42 [facility] National Teleradiology Program [phone] (For Medical Practitioner Use Only) Attention Patients / Veterans: If you have questions or concerns about these test results, please contact your ordering provider or primary care team. Primary Interpreting Staff: RADIOLOGY,OUTSIDE SERVICE, Staff Physician / RADIOLOGY,OUTSIDE SERVICE [facility] Encounter Notes: All associated encounter notes This section contains the clinical notes associated to the Encounter. Date/Time Encounter Note(s) Provider Source Mar 27, 2024 01:29 PM INTERNAL MEDICINE OUTPATIENT NOTE: LOCAL TITLE: MEDICINE CLINIC NURSING NOTE STANDARD TITLE: INTERNAL MEDICINE OUTPATIENT NOTE DATE OF NOTE: MAR 27, 2024@13:29 ENTRY DATE: MAR 27, 2024@13:29:21 AUTHOR: FRANKLIN GROVE COSIGNER: URGENCY: STATUS: COMPLETED TYPE OF VISIT: Appointment Check In Type of appointment: In-person appointment REASON FOR VISIT: Scheduled clinic visit ALLERGIES: LISINOPRIL (February 18, 2009) LOSARTAN (February 18, 2009) AMLODIPINE (Jun 18, 2009) DEMEROL HYDROCHLORIDE INJECTION 50 MG/ML (March 04, 2014) GABAPENTIN (Jan 23, 2016) DULOXETINE (Feb 11, 2016) VITAL SIGNS: Blood Pressure: 118/69 (03/27/2024 13:25) Pulse: 54 (03/27/2024 13:25) Respiration: 16 (03/27/2024 13:25) Temperature: 97.6 F [36.4 C] (03/27/2024 13:25) Weight: 190.7 lb [86.50 kg] (03/27/2024 13:25) Height: 70 in [177.8 cm] (11/19/2023 07:58) BMI: 27.4 O2 Sat: 96% (03/27/2024 13:25) Pain: 0 (03/27/2024 13:25) PAIN SCREEN: Patient is not having significant pain that they wish to discuss with their provider today. MEDICATION Active Outpatient Medications (including Supplies): ACCU-CHEK GUIDE (GLUCOSE) TEST STRIP USE 1 STRIP EVERY ACTIVE DAY BANDAGE TUBULAR ELASTIC SZ E C#323005 USE 1 BANDAGE ACTIVE TOPICALLY DIRECTED FOR EDEMA BRIMONIDINE 0.2%/BRINZOLAMID 1% OPH SUSP INSTILL ONE DROP ACTIVE IN BOTH EYES TWO TIMES A DAY FOR GLAUCOMA CATH,INTERM COUDE 14FR COLOPLAST #60715 USE 1 CATHETER ACTIVE TOPICALLY DIRECTED DESONIDE 0.05% CREAM APPLY THIN LAYER TOPICALLY TWICE A ACTIVE DAY FOR RASH FOR 2 WEEKS OR UNTIL REDNESS AND ITCHING ARE IMPROVED INSULIN,GLARGINE-YFGN 100UNIT/ML PEN 3ML INJECT 50 UNITS ACTIVE UNDER THE SKIN EVERY DAY FOR DIABETES KETOCONAZOLE 2% SHAMPOO SHAMPOO SCALP, AVALOS, CHEST ACTIVE TOPICALLY 3 TIMES WEEKLY *LATHER FOR 5 MINUTES THEN RINSE* LATANOPROST 0.005% OPH SOLN INSTILL 1 DROP IN BOTH EYES AT ACTIVE BEDTIME FOR GLAUCOMA REFRIGERATE BOTTLE UNTIL OPENED. LIDOCAINE 5% OINT APPLY MODERATE AMOUNT TOPICALLY EVERY ACTIVE DAY NEEDED FOR PAIN METOPROLOL SUCCINATE 25MG SA TAB TAKE ONE-HALF TABLET BY ACTIVE MOUTH EVERY DAY OMEPRAZOLE 20MG EC CAP TAKE ONE CAPSULE BY MOUTH EVERY DAY ACTIVE FOR HEARTBURN SEMAGLUTIDE 1MG/0.75ML INJ PEN 3ML INJECT 1MG UNDER THE ACTIVE SKIN EVERY WEEK ON WEDNESDAYS TIOTROPIUM 18MCG INHL CAP 30 INHALE ONE CAPSULE IN INHALER ACTIVE BY INHALATION EVERY DAY FOR BREATHING TOPIRAMATE 50MG TAB TAKE THREE TABLETS BY MOUTH TWICE A ACTIVE DAY TAKE AT NOON AND BEFORE DINNER TO REDUCE CRAVINGS. Over the Counter/Herbal Medications: The patient denies taking any outside medications or herbals. Diabetes/Metabolic Clinic Glucometer: [place] did not bring glucometer to appointment /kyle/ FRANKLIN BELTRÁN Signed: 03/27/2024 13:[address] [facility] Mar 27, 2024 01:23 PM ENDOCRINOLOGY ATTENDING NOTE: LOCAL TITLE: METABOLIC CLINIC NOTE STANDARD TITLE: ENDOCRINOLOGY ATTENDING NOTE DATE OF NOTE: MAR 27, 2024@13:23 ENTRY DATE: MAR 27, 2024@13:23:57 AUTHOR: KRISTEN BARRETO EXP COSIGNER: URGENCY: STATUS: COMPLETED Endocrine/Metabolic Clinic Note Chief Complaint: 69 year old MALE with past medical history of T2DM neuropathy, obesity, CAD, COPD, HTN, MARTINEZ, HLD, OA here for follow up of diabetes and obesity. History of Present Illness: Patient is followed routinely in this clinic for his diabetes and weight, last seen approximately 6 months ago at which time no changes were made. Today, patient states he rarely takes his insulin because he does not think he needs it. He has not consistently taken it for 2 months and his recent A1c is 7.1%. He also reports that he had an episode of kidney stones and was seen in the ED. He understands that topiramate increases his risk of kidney stones and refuses to stop it because I do not want to gain the weight back. His kidney function is normal. Semaglutide 1 mg weekly Metformin 1500/500 mg daily Empagliflozin 25 mg daily Topiramate 150 mg BID for obesity (one refill in 12 months) Insulin Glargine - he has not been taking it for the past month or two Retinopathy: Exam 03/2024, stable Neuropathy: Stable, a nurse comes in and checks his feet every other week Nephropathy: Trace proteinuria Cardiac: Hx of MT and ablation Lipids: Rosuvastatin 40mg Collection DT Spec HGBA1C 03/27/2024 13:00 BLOOD 7.1 H 12/27/2023 11:02 BLOOD 7.4 H 05/31/2023 13:17 BLOOD 6.7 H Goal 175# Measurement DT WEIGHT LB(KG)[BMI] 03/27/2024 13:25 190.7(86.50)[27] 03/02/2024 11:00 187.4(85.00)[27] 02/03/2024 11:44 190.1(86.23)[27] 01/13/2024 11:19 196.8(89.27)[28*] 12/30/2023 11:25 194.9(88.41)[28*] 12/09/2023 11:32 191.5(86.86)[28*] 11/25/2023 10:05 191.8(87.00)[28*] 11/19/2023 07:58 195(88.45)[28*] 11/11/2023 11:34 192.5(87.32)[28*] 10/28/2023 11:48 194.2(88.09)[28*] 10/14/2023 14:13 192.5(87.32)[28*] 10/14/2023 11:30 192.4(87.27)[28*] 09/30/2023 11:18 190(86.18)[27] 09/28/2023 11:45 180(81.65)[26] 09/27/2023 13:44 186.6(84.64)[27] 09/02/2023 12:46 194(88.00)[28*] 08/05/2023 12:53 189.9(86.14)[27] 08/05/2023 11:16 189.9(86.14)[27] 07/08/2023 11:25 189.2(85.82)[27] Past Medical History: Active problems - Computerized Problem List is the source for the followin. Diabetic peripheral neuropathy (SNOMED CT 730684260) 2. Sleep apnea (SNOMED CT 40097964) - iVAPS: R: 18, PS: 7-16, EPAP+14, Mirag Quatt Med 3. Severe chronic obstructive pulmonary disease (SNOMED CT 974854476) 4. Personal History of Tobacco Use - Quit 2003, Smoked x 25 years 5. Inguinial Hernia Repair 6. Benign essential hypertension (SNOMED CT 7604728) 7. Erectile dysfunction (SNOMED CT 440322920) 8. Osteoarthrosis involving the spine 9. Hyperlipidemia (SNOMED CT 34009680) 10. Polyp of colon (SNOMED CT 89994423) 11. Open Angle, Primary 12. Morbid obesity (SNOMED CT 239535601) 13. History of adenomatous polyp of colon - By 2008 colonoscopy 14. Hypothyroidism 15. Mild memory disturbance - Due to multiple medical etiologies; Normal NPT 2014 16. History of repair of umbilical hernia 17. Chronic pain following right total knee arthroplasty (SNOMED CT 141444994064 18. Hip pain 19. Iron deficiency anemia 20. Diabetes mellitus type 2 without retinopathy (SNOMED CT 4923098573421) 21. Hypokalemia 22. Obesity 23. Ventricular bigeminy 24. Acute non-ST segment elevation myocardial infarction 25. PVC - premature ventricular contraction (SNOMED CT 399615574) 26. Coronary arteriosclerosis - s/p FRED x1 [...] 11, 2016) Active Outpatient Medications (including Supplies): ACCU-CHEK GUIDE (GLUCOSE) TEST STRIP USE 1 STRIP EVERY ACTIVE DAY BANDAGE TUBULAR ELASTIC SZ E C#952052 USE 1 BANDAGE ACTIVE TOPICALLY DIRECTED FOR EDEMA BRIMONIDINE 0.2%/BRINZOLAMID 1% OPH SUSP INSTILL ONE DROP ACTIVE IN BOTH EYES TWO TIMES A DAY FOR GLAUCOMA CATH,INTERM COUDE 14FR COLOPLAST #27375 USE 1 CATHETER ACTIVE TOPICALLY DIRECTED DESONIDE 0.05% CREAM APPLY THIN LAYER TOPICALLY TWICE A ACTIVE DAY FOR RASH FOR 2 WEEKS OR UNTIL REDNESS AND ITCHING ARE IMPROVED INSULIN,GLARGINE-YFGN 100UNIT/ML PEN 3ML INJECT 50 UNITS ACTIVE UNDER THE SKIN EVERY DAY FOR DIABETES KETOCONAZOLE 2% SHAMPOO SHAMPOO SCALP, AVALOS, CHEST ACTIVE TOPICALLY 3 TIMES WEEKLY *LATHER FOR 5 MINUTES THEN RINSE* LATANOPROST 0.005% OPH SOLN INSTILL 1 DROP IN BOTH EYES AT ACTIVE BEDTIME FOR GLAUCOMA REFRIGERATE BOTTLE UNTIL OPENED. LIDOCAINE 5% OINT APPLY MODERATE AMOUNT TOPICALLY EVERY ACTIVE DAY NEEDED FOR PAIN METOPROLOL SUCCINATE 25MG SA TAB TAKE ONE-HALF TABLET BY ACTIVE MOUTH EVERY DAY OMEPRAZOLE 20MG EC CAP TAKE ONE CAPSULE BY MOUTH EVERY DAY ACTIVE FOR HEARTBURN SEMAGLUTIDE 1MG/0.75ML INJ PEN 3ML INJECT 1MG UNDER THE ACTIVE SKIN EVERY WEEK ON WEDNESDAYS TIOTROPIUM 18MCG INHL CAP 30 INHALE ONE CAPSULE IN INHALER ACTIVE BY INHALATION EVERY DAY FOR BREATHING TOPIRAMATE 50MG TAB TAKE THREE TABLETS BY MOUTH TWICE A ACTIVE DAY TAKE AT NOON AND BEFORE DINNER TO REDUCE CRAVINGS. MEDICATION RECONCILIATION Outpatient At this visit I have reviewed the medication list, and discussed relevant medications with the patient/surrogate. An updated patient medication list was given to the participant(s). Education on NEW Medication: I have reviewed the medication list for possible drug:drug interactions or contraindications prior to ordering NEW medications during this visit indicated readiness to learn and has been instructed on action, dose, frequency and side effects of the new medication and I noted new medication on participant's copy of the medication list. Physical Exam: Patient uses a wheeled walker and is not in any distress. Refuses foot exam today. Vital Signs Temp: 97.9 F [36.6 C] (01/11/2024 10:17) B/P: 138/80 (01/11/2024 11:30) Pulse: 73 (01/11/2024 11:30) Ht: 70 in [177.8 cm] (11/19/2023 07:58) Wt: 187.4 lb [85.00 kg] (03/02/2024 11:00) Pain: 8 (01/11/2024 10:17) BMI: 26.9 Assessment and Plan: #. Type 2 diabetes: A1c is 7.1%. Patient has stopped his insulin but seems to be doing well. He did not bring any blood sugars with him today. No changes recommended. #. Obesity: Patient has a BMI of 27 and is at his goal weight. He recently had an episode of kidney stones and clearly understands that topiramate increases the risk of stones. He absolutely understands these risks and does not want to stop the medication because he feels it has helped him so much. He agrees to increase his hydration and call if he gets any more stones. #. Hypertension: Blood pressure at goal #. Retinopathy:Eye exam up-to-date #: Neuropathy: Stable #. Follow-up: 6 months with labs Greater than 30 minutes was spent during this visit completing the followin. Reviewing the chart and any imaging or labs prior to the visit 2. Evaluating the patient and determining the prognosis and/or complications of the disorder 3. Determining the management approach including pro/cons and side effects of any medications prescribed 4. The follow up plan for the patient Disclaimer: This note consists of symbols derived from keyboarding, dictation and/or voice recognition software. As a result, there may be errors in the script that have gone undetected. Please consider this when interpreting information found in this chart. /kyle/ JONE CHRISTENSEN NURSE PRACTITIONER, ENDOCRINE Signed: 03/27/2024 13:[address] [facility]
--- OUTSIDE RECORDS SUMMARY | 2025-01-16 08:05 | XMS_ITS | Encounter Summary ---
Author Name [facility] Organization [facility] Address [address] [place] [address] Care Team Providers Care Nip Wrapper Name Role Phone ZENY MARTIN Primary Care [...] PART A Oct 18, 2013 PART A [id number] Mary ROSA PATIENT MEDICARE (WNR) MEDICARE (M) PART B Oct 18, 2013 PART B [id number] Mary ROSA EONARD PATIENT MEDICARE (WNR) MEDICARE (M) PART A Oct 18, 2013 PART A [id number] [phone] Mary ROSA PATIENT Selected Encounter This section includes the information on record at [place] for the Encounter. Date/Time Encounter Type Encounter Description Reason Pro vider Source Jan 09, 2025 08:50 AM Outpatient Encounter CLINICAL PHARMACY E Encounter Template Text not used by [place] [...] 20 appointments. The data comes from all [facility]. Appointment Date/Time Appointment Type Appointme nt Facility Name Jan 24, 2025 01:00 PM AMBULATORY - SURGERY [facility] Jan 25, 2025 10:00 AM AMBULATORY - MEDICINE [facility] Jan 25, 2025 11:00 AM AMBULATORY - REHAB MEDICIN E [facility] Feb 01, 2025 10:00 AM AMBULATORY - MEDICINE [facility] Feb 01, 2025 11:00 AM AMBULATORY - MEDICINE [facility] Feb 08, 2025 10:00 AM AMBULATORY - MEDICINE [facility] February 22, 2025 10:00 AM AMBULATORY - MEDICINE [facility] February 23, 2025 11:00 AM AMBULATORY - NONE [facility] February 23, 2025 11:30 AM AMBULATORY - SURGERY [facility] March 08, 2025 10:00 AM AMBULATORY - MEDICINE [facility] Apr 09, 2025 01:00 PM AMBULATORY - SURGERY [facility] Active, Pending, and Scheduled Orders This section includes a listing of several types of active, pending, and scheduled orders, including clinic medications orders, diagnostic test orders, procedure orders and consult orders; where the start date of the order is 45 days before the date of the Encounter or 45 days after the date of theEncounter. The data comes from all [facility]. Test Date/Time Test Type Test Details Facility Name Dec 11, 2024 11:04 AM Consult Order PT PHYSICA L THERAPY OUTPT ORTHO SURGERY Cons Ophthalmology Assistant's [facility] Jan 10, 2025 12:00 AM Laboratory - Blood Bank Order TYPE & SCREEN - LAB BLOOD WC [facility] Jan 12, 2025 08:18 AM Consult Order [facility], [facility] 12:00 AM Laboratory - Chemi stry Order HEMOGLOBIN A1C BLOOD SP ONCE [facility] Jan 22, 2025 12:00 AM Laboratory - Chemi stry Order BASIC METABOLIC PANEL+MG PLASMA SP [facility] February 23, 2025 [...] 12:51 PM Reporting Lab: [facility] [phone] Performing Lab: [facility] [phone] FINGERSTICK GLUCOSE 246 mg/dL H 70-100 Jan 11, 2025 07:[address] [facility] CBC Specimen Type: BLOOD No comment entered. Ordering Provider: ANDREA WOLF Report Released Date/Time: Jan 10, 2025 02:40 PM Reporting Lab: [facility] [phone] Performing Lab: [facility] [address] WBC 9.7 4.0-11.0 RBC 4.50 L 4.60-6.20 [...] 02:40 PM Reporting Lab: [facility] [phone] Performing Lab: [facility] [phone] CREATININE 1.0 mg/dL 0.7-1.2 UREA NITROGEN 21 [...] 07:41 AM Reporting Lab: [facility] [address] Performing Lab: [facility] [address] FINGERSTICK GLUCOSE 220 mg/dL H 70-100 Jan 10, 2025 08:[address] [facility] FINGERSTICK GLUCOSE Specimen Type: BLOOD Comment: Save Result Nurse Notified Ordering Provider: Lilli CHRISTENSEN Report Released Date/Time: Jan 10, 2025 08:36 PM Reporting Lab: [facility] [phone] Performing Lab: [facility] [phone] FINGERSTICK GLUCOSE 239 mg/dL H -100 Jan 10, 2025 04:[address] [facility] FINGERSTICK GLUCOSE Specimen Type: BLOOD Comment: Save Result Nurse Notified Ordering Provider: Lilli CHRISTENSEN Report Released Date/Time: Jan 10, 2025 05:34 PM Reporting Lab: [facility] [phone] Performing Lab: [facility] [phone] FINGERSTICK GLUCOSE 190 mg/dL H 70-100 Jan 10, 2025 02:[address] [facility] FINGERSTICK GLUCOSE Specimen Type: BLOOD Comment: Save Result Nurse Notified Ordering Provider: BENIGNO KIM Report Released Date/Time: Jan 10, 2025 03:01 PM Reporting Lab: [facility] [phone] Performing Lab: [facility] [address] FINGERSTICK GLUCOSE 183 mg/dL H 70-100 Jan 10, 2025 08:[address] [facility] ACT PART THROMBO TIME Specimen Type: PLASMA Comment: ~Draw on admission. Call IV team to draw on admission. Ordering Provider: BENIGNO KIM Report Released Date/Time: Jan 10, 2025 08:01 AM Reporting Lab: [facility] [phone] Performing Lab: [facility] [address] APTT 31.4 s 25.1-36.5 Jan 10, 2025 08:[address] [facility] PROTHROMBIN TIME/INR Specimen Type: PLASMA Comment: ~Draw on admission. Call IV team to draw on admission. Ordering Provider: BENIGNO KIM A Report Released Date/Time: Jan 10, 2025 08:01 AM Reporting Lab: [facility] [phone] Performing Lab: [facility] [address] .INR 0.9 0.8-1.1 .PT 10.9 s 9.4-12.5 Jan 10, 2025 08:[address] [facility] CBC Specimen Type: BLOOD No comment entered. Ordering Provider: BENIGNO KIM A Report Released Date/Time: Jan 10, 2025 08:01 AM Reporting Lab: [facility] [phone] Performing Lab: [facility] [phone] WBC 6.6 4.0-11.0 RBC 5.00 4.60-6.20 HGB [...] 08:01 AM Reporting Lab: [facility] [address] Performing Lab: [facility] [address] CREATININE 0.9 mg/dL 0.7-1.2 UREA NITROGEN 19 [...] 10:31 AM Reporting Lab: [facility] [address] Performing Lab: [facility] [address] FINGERSTICK GLUCOSE 155 mg/dL H 70-100 Dec [...] 10:57 AM Reporting Lab: [facility] [phone] Performing Lab: [facility] [address] HEMOGLOBIN A1C 7.1 H 4.0-6.0 Dec 18, 2024 12:[address] [facility] ALBUMIN Specimen Type: PLASMA No comment entered. Ordering Provider: BENIGNO KIM A Report Released Date/Time: Sep 27, 2024 10:57 AM Reporting Lab: [facility] [address] Performing Lab: [facility] [address] ALBUMIN 4.4 g/dL 3.5-5.0 Dec 18, 2024 12:[address] [facility] PROTHROMBIN TIME/INR Specimen Type: PLASMA No comment entered. Ordering Provider: BENIGNO KIM A Report Released Date/Time: Sep 27, 2024 10:57 AM Reporting Lab: [facility] [phone] Performing Lab: [facility] [address] .INR 0.9 0.8-1.1 .PT 10.3 s 9.4-12.5 Dec 18, 2024 12:[address] [facility] BASIC METABOLIC PANEL+MG Specimen Type: PLASMA No comment entered. Ordering Provider: BENIGNO KIM A Report Released Date/Time: Sep 27, 2024 10:57 AM Reporting Lab: [facility] [phone] Performing Lab: [facility] [address] CREATININE 1.0 mg/dL 0.7-1.2 UREA NITROGEN 19 [...] 10:57 AM Reporting Lab: [facility] [address] Performing Lab: [facility] [address] WBC 9.5 4.0-11.0 RBC 5.05 4.60-6.20 HGB [...] March 08, 2023 ADVANCE DIRECTIVE ODILIA CHRISTIANSON [facility] May 02, 2014 ADVANCE DIRECTIVE DISCUSSION QUEENIE SAENZ [facility] May 24, [address] [facility] Sep 21, 2011 ADVANCE DIRECTIVE JORDAN ZHANG [facility] Radiology Reports: +/- 30 days [...] the Encounter. The data comes from all [place] treatment facilities. Date/Time Radiology Report Provider Source Jan 10, 2025 07:58 AM SHOULDER RIGHT 2-3 VIEWS: MOEKEENAANTHONY PRYOR [id number] -[id number] M Exm Date: JAN 10, 2025@07:58 Req Phys: HSELLI KIM Loc: OR-PACU/01-10-2025@15:42 Img Loc: MAIN X-RAY Service: [place] [address] (Case [id number] COMPLETE) SHOULDER RIGHT 2-3 VIEWS (RAD Detailed) CPT:22141 Proc Modifiers : PORTABLE EXAM, OPERATING ROOM EXAM Reason for Study: right reverse TSA Clinical History: OR 6 shoulder rotator cuff arthropathy My pager number on record is: . I confirm that the pager number/cell phone number above is correct for reporting critical results. My correct contact # for critial results is:Valerio KIM [phone] Trainees only: Enter your staff provider's info here: LAST CREATININE 1.0 (12/18/24) Report Status: Verified Date Reported: JAN 10, 2025 Date Verified: JAN 10, 2025 Chain Saw Driver E-Sig:/KYLE/MIRANDA BROOKE MD Report: EXAMINATION: SHOULDER RIGHT 2-3 VIEWS 01/10/2025 7:58 AM INDICATION: right reverse TSA Impression: Right reverse TSA. Components appear well seated. Report Sign Date/Time: 01/10/2025 3:39 PM Primary Interpreting Staff: MIRANDA BROOKE MD, RADIOLOGIST (Chain Saw Driver) /RTS MIRANDA BROOKE [facility] Encounter Notes: All associated encounter notes This section contains the clinical notes associated to the Encounter. Date/Time Encounter Note(s) Provider Source Jan 10, 2025 08:16 AM ADDENDUM: LOCAL TITLE: Addendum STANDARD TITLE: ADDENDUM DATE OF NOTE: JAN 10, 2025@08:16:22 ENTRY DATE: JAN 10, 2025@08:16:24 AUTHOR: AIDEN JUARES EXP COSIGNER: URGENCY: STATUS: COMPLETED No new, pending, clinic, , or discontinued medication orders since the time of this note per chart review. Medication list provided to assist with inpatient orders. /kyle/ AIDEN JUARES Pharmacist Signed: 01/10/2025 08:17 Receipt Acknowledged By: 01/10/2025 08:45 /kyle/ SHELLI KIM MD STAFF SURGEON 01/10/2025 09:07 /kyle/ MICHELLE CASTRO PHARMACIST --- Original Document --- 01/09/25 DRUG RECONCILIATION ON ADMIT: PHARMACY MEDICATION HISTORY NOTE === Medication & allergy history was compiled by pharmacy to assist providers ordering inpatient medications. Essential med list includes active local & remote VA rxs, non-VA meds, recently rxs within last 180 days, recently discontinued rxs within last 90 days, clinic med orders, pending med orders, & inpatient med orders. Current active & pending inpatient med orders will be reviewed to complete medication reconciliation. With the exception of allergies, if a category is not listed below, there were no relevant meds for the patient. Seasonal Influenza Immunization: refused INTERVIEW Patient and/or caregiver has been INTERVIEWED by pharmacy. Allergies: FACILITY ALLERGY/ADR -------- [facility] AMLODIPINE [facility] DEMEROL HYDROCHLORIDE INJECTION 50 MG/ML [facility] DULOXETINE [facility] GABAPENTIN [facility] LISINOPRIL [facility] AMLODIP[facility] LISINOPRIL Patient does not manage own medications. Interview conducted with patient's caregiver: [facility] (Enrique) Tobacco use within the last 30 days No Medications given in clinic: no clinic meds Recently discontinued prescriptions: Not applicable 01/04/2025 08:03 [id number] Source of Info: [facility] Drug Last Refills Qty Filled Remaining ---- --- ------ --------- ASPIRIN 81MG EC TAB 120 01/03/2025 (1) ONE QDAY TO PREVENT BLOOD CLOTS(am) BENZOYL PEROXIDE 10% (WATER BASED) GEL 60 12/18/2024 (0) APPLY THIN LAYER TOPICALLY BID TO PREVENT INFECTION APPLY TO SURGICAL SHOULDER STARTING TWO DAYS PRIOR TO SURGERY AND MORNING OF SURGERY. PROCEDURE DATE: 01/10/25 Indication: TO PREVENT INFECTION BRIMONIDINE 0.2%/BRINZOLAMID 1% OPH LAW 24 10/07/2024 (3) ONE DROP IN BOTH EYES TWO TIMES A DAY FOR GLAUCOMA(am,hs) CHOLECALCIF 25MCG (D3-1,000UNIT) TAB 100 01/03/2025 (1) ONE QDAY (hs) DICLOFENAC NA 1% TOP GEL 300 09/22/2024 (2) APPLY 4 GRAMS TOPICALLY QID PRN TO AFFECTED AREA FOR PAIN TO BILAT WRIST FOR ARTHRITS PAIN to shoulder, lower back, and hip about 2-3 times daily EMPAGLIFLOZIN 25MG TAB 90 11/04/2024 (3) ONE QDAY (hs) FERROUS GLUCONATE 324MG TAB 100 01/03/2025 (2) ONE QDAY FOR IRON SUPPLEMENT (hs) FUROSEMIDE 20MG TAB 90 10/25/2024 (1) ONE QDAY (am) ISOSORBIDE MONONITRATE 60MG SA TAB 90 10/25/2024 (1) ONE QDAY (am) KETOCONAZOLE 2% SHAMPOO 240 12/15/2024 (9) SHAMPOO SCALP, AVALOS, CHEST TOPICALLY 3 TIMES WEEKLY with showers LATANOPROST 0.005% OPH SOLN 7.5 09/25/2024 (5) 1 DROP IN BOTH EYES QHS FOR GLAUCOMA LEVOTHYROXINE NA (SYNTHROID) 25MCG TAB 90 12/06/2024 (1) ONE QDAY FOR THYROID(am) LIDOCAINE 5% OINT 35 09/22/2024 (9) APPLY MODERATE AMOUNT TOPICALLY QDAY PRN FOR PAIN to knees, feet, and hip about once daily LORATADINE 10MG TAB 90 11/10/2024 (1) ONE QDAY FOR ALLERGIES (am) METFORMIN HCL 1000MG TAB 225 10/05/2024 (3) ONE AND ONE-HALF QAM AND ONE QPM (am,hs) METOPROLOL SUCCINATE 25MG SA TAB 45 12/06/2024 (0) ONE-HALF QDAY (am) MUPIROCIN 2% OINT 22 12/18/2024 (0) APPLY PEA SIZED AMOUNT INSIDE EACH NOSTRIL TOPICALLY TWICE A DAY TO PREVENT INFECTION FOR FIVE DAYS PRIOR TO SURGERY -PROCEDURE DATE: 01/10/25 Indication: TO PREVENT INFECTION starts 01/11 OMEPRAZOLE 20MG EC CAP 90 11/10/2024 (0) ONE QDAY FOR HEARTBURN (am) PEG 400 0.4%/PROP GLYCOL 0.3% OPH SOLN 15 09/25/2024 (11) 1 DROP IN BOTH EYES QID PRN FOR DRY EYES a few times a week ROSUVASTATIN CA 40MG TAB 90 01/03/2025 (2) ONE QHS SEMAGLUTIDE 1MG/0.75ML INJ PEN 3ML 3 01/08/2025 (3) INJECT 1MG SQ ONCE WEEKLY FOR DIABETES ON WEDNESDAYS on hold TACROLIMUS 0.1% TOP OINT 30 09/22/2024 (2) APPLY SMALL AMOUNT TOPICALLY BID FOR DERMATITIS to forehead bid daily(am,hs) TOPIRAMATE 50MG TAB 540 11/14/2024 (3) THREE BID AT NOON AND BEFORE DINNER TO REDUCE CRAVINGS. takes am,hs VANICREAM TOP CREAM 454 08/29/2024 (3) APPLY THIN LAYER TOPICALLY QDAY FOR DRY SKIN to legs and arms daily The following prescriptions have DESONIDE 0.05% CREAM 60 09/22/2024 (1) APPLY THIN LAYER TOPICALLY BID FOR RASH FOR 2 WEEKS OR UNTIL REDNESS AND ITCHING ARE IMPROVED : 10/18/2024 completed TIOTROPIUM 18MCG INHL CAP 30 3 10/20/2023 (3) ONE IN INHALER QDAY FOR BREATHING : 10/19/2024 no longer using The following are Non-VA medications Multivitamin qam PENDING ORDERS --------- No pending orders for this patient! /kyle/ DEVORA MAK SLABBING MACHINE OPERATOR Signed: 01/09/2025 08:[address] [facility] Jan 09, 2025 08:51 AM PHARMACY MEDICATIO N MGT NOTE: LOCAL TITLE: DRUG RECONCILIATION ON ADMIT STANDARD TITLE: PHARMACY MEDICATION MGT NOTE DATE OF NOTE: JAN 09, 2025@08:51 ENTRY DATE: JAN 09, 2025@08:51:13 AUTHOR: DEVORA MAK EXP COSIGNER: URGENCY: STATUS: COMPLETED DRUG RECONCILIATION ON ADMIT Has ADDENDA PHARMACY MEDICATION HISTORY NOTE === Medication & allergy history was compiled by pharmacy to assist providers ordering inpatient medications. Essential med list includes active local & remote VA rxs, non-VA meds, recently rxs within last 180 days, recently discontinued rxs within last 90 days, clinic med orders, pending med orders, & inpatient med orders. Current active & pending inpatient med orders will be reviewed to complete medication reconciliation. With the exception of allergies, if a category is not listed below, there were no relevant meds for the patient. Seasonal Influenza Immunization: refused INTERVIEW Patient and/or caregiver has been INTERVIEWED by pharmacy. Allergies: FACILITY ALLERGY/ADR -------- [facility] AMLODIPINE [facility] DEMEROL HYDROCHLORIDE INJECTION 50 MG/ML [facility] DULOXETINE [facility] GABAPENTIN [facility] LISINOPRIL [facility] [place] [facility] AMLODIPINE [facility] LISIN[facility] Patient does not manage own medications. Interview conducted with patient's caregiver: [facility] (Enrique)[phone] Tobacco use within the last 30 days No Medications given in clinic: no clinic meds Recently discontinued prescriptions: Not applicable 01/04/2025 08:03 [id number] Source of Info: [facility] Drug Last Refills Qty Filled Remaining ---- --- ------ --------- ASPIRIN 81MG EC TAB 120 01/03/2025 (1) ONE QDAY TO PREVENT BLOOD CLOTS(am) BENZOYL PEROXIDE 10% (WATER BASED) GEL 60 12/18/2024 (0) APPLY THIN LAYER TOPICALLY BID TO PREVENT INFECTION APPLY TO SURGICAL SHOULDER STARTING TWO DAYS PRIOR TO SURGERY AND MORNING OF SURGERY. PROCEDURE DATE: 01/10/25 Indication: TO PREVENT INFECTION BRIMONIDINE 0.2%/BRINZOLAMID 1% OPH LAW 24 10/07/2024 (3) ONE DROP IN BOTH EYES TWO TIMES A DAY FOR GLAUCOMA(am,hs) CHOLECALCIF 25MCG (D3-1,000UNIT) TAB 100 01/03/2025 (1) ONE QDAY (hs) DICLOFENAC NA 1% TOP GEL 300 09/22/2024 (2) APPLY 4 GRAMS TOPICALLY QID PRN TO AFFECTED AREA FOR PAIN TO BILAT WRIST FOR ARTHRITS PAIN to shoulder, lower back, and hip about 2-3 times daily EMPAGLIFLOZIN 25MG TAB 90 11/04/2024 (3) ONE QDAY (hs) FERROUS GLUCONATE 324MG TAB 100 01/03/2025 (2) ONE QDAY FOR IRON SUPPLEMENT (hs) FUROSEMIDE 20MG TAB 90 10/25/2024 (1) ONE QDAY (am) ISOSORBIDE MONONITRATE 60MG SA TAB 90 10/25/2024 (1) ONE QDAY (am) KETOCONAZOLE 2% SHAMPOO 240 12/15/2024 (9) SHAMPOO SCALP, AVALOS, CHEST TOPICALLY 3 TIMES WEEKLY with showers LATANOPROST 0.005% OPH SOLN 7.5 09/25/2024 (5) 1 DROP IN BOTH EYES QHS FOR GLAUCOMA LEVOTHYROXINE NA (SYNTHROID) 25MCG TAB 90 12/06/2024 (1) ONE QDAY FOR THYROID(am) LIDOCAINE 5% OINT 35 09/22/2024 (9) APPLY MODERATE AMOUNT TOPICALLY QDAY PRN FOR PAIN to knees, feet, and hip about once daily LORATADINE 10MG TAB 90 11/10/2024 (1) ONE QDAY FOR ALLERGIES (am) METFORMIN HCL 1000MG TAB 225 10/05/2024 (3) ONE AND ONE-HALF QAM AND ONE QPM (am,hs) METOPROLOL SUCCINATE 25MG SA TAB 45 12/06/2024 (0) ONE-HALF QDAY (am) MUPIROCIN 2% OINT 22 12/18/2024 (0) APPLY PEA SIZED AMOUNT INSIDE EACH NOSTRIL TOPICALLY TWICE A DAY TO PREVENT INFECTION FOR FIVE DAYS PRIOR TO SURGERY -PROCEDURE DATE: 01/10/25 Indication: TO PREVENT INFECTION starts 01/11 OMEPRAZOLE 20MG EC CAP 90 11/10/2024 (0) ONE QDAY FOR HEARTBURN (am) PEG 400 0.4%/PROP GLYCOL 0.3% OPH SOLN 15 09/25/2024 (11) 1 DROP IN BOTH EYES QID PRN FOR DRY EYES a few times a week ROSUVASTATIN CA 40MG TAB 90 01/03/2025 (2) ONE QHS SEMAGLUTIDE 1MG/0.75ML INJ PEN 3ML 3 01/08/2025 (3) INJECT 1MG SQ ONCE WEEKLY FOR DIABETES ON WEDNESDAYS on hold TACROLIMUS 0.1% TOP OINT 30 09/22/2024 (2) APPLY SMALL AMOUNT TOPICALLY BID FOR DERMATITIS to forehead bid daily(am,hs) TOPIRAMATE 50MG TAB 540 11/14/2024 (3) THREE BID AT NOON AND BEFORE DINNER TO REDUCE CRAVINGS. takes am,hs VANICREAM TOP CREAM 454 08/29/2024 (3) APPLY THIN LAYER TOPICALLY QDAY FOR DRY SKIN to legs and arms daily The following prescriptions have DESONIDE 0.05% CREAM 60 09/22/2024 (1) APPLY THIN LAYER TOPICALLY BID FOR RASH FOR 2 WEEKS OR UNTIL REDNESS AND ITCHING ARE IMPROVED : 10/18/2024 completed TIOTROPIUM 18MCG INHL CAP 30 3 10/20/2023 (3) ONE IN INHALER QDAY FOR BREATHING : 10/19/2024 no longer using The following are Non-VA medications Multivitamin qam PENDING ORDERS --------- No pending orders for this patient! /kyle/ DEVORA MAK SLABBING MACHINE OPERATOR Signed: 01/09/2025 08:55 01/10/2025 ADDENDUM STATUS: COMPLETED No new, pending, clinic, , or discontinued medication orders since the time of this note per chart review. Medication list provided to assist with inpatient orders. /kyle/ AIDEN JUARES Pharmacist Signed: 01/10/2025 08:17 Receipt Acknowledged By: * AWAITING SIGNATURE * SHELLI KIM * AWAITING SIGNATURE * MICHELLE CASTRO [facility]AR [facility]
--- OUTSIDE RECORDS SUMMARY | 2025-01-16 08:06 | XMS_ITS | Encounter Summary ---
Author Name [facility] Organization [facility] [place] Address [address] [place] [address] Care Team Providers Care Machine Mover Name Role Phone ZENY MARTIN Primary Care [...] PART A Oct 18, 2013 PART A [id number] [phone] Mary ROSA PATIENT MEDICARE (WNR) MEDICARE (M) PART B Oct 18, 2013 PART B [id number] [phone] Mary ROSA EOMIRELAD PATIENT MEDICARE (WNR) MEDICARE (M) PART A Oct 18, 2013 PART A [id number] Mary ROSA PATIENT Selected Encounter This section includes the information on record at OR for the Encounter. Date/Time Encounter Type Encounter Description Reason Provider Source May 16, 2024 12:58 PM Outpatient Encounter DERMATOLOGY ICD-10-CM L21.8 Other seborrheic dermatitis SUYAPA BUSTILLOS I [facility] Encounter Template Text not used by OR Assessments - Encounter Diagnoses This section includes the primary and secondary diagnoses documented for the Encounter. Date/Time Primary/Secondary Diagnosis Diagnosis Name Provider Source May 16, 2024 01:48 PM PRIMARY Other seborrheic dermatitis SUYAPA BUSTILLOS I [facility] Plan of Treatment: Future Appointments (+ 6 months) and Future Tests (+/- 45 days) The Plan of Treatment section includes future care activities for the [facility] This section includes future appointments and future orders which are active, pending or scheduled. Future Appointments This section includes appointments that were scheduled to occur 6 months from the date of the Encounter, up to a maximum of 20 appointments. The data comes from all [place] treatment facilities. Appointment Date/Time Appointment Type Appointme nt Facility Name May 25, 2024 10:00 AM AM[place]ULATORY [place]IC[place] [facility] May 30, 2024 01:00 PM AMBUL[place]ORY [place] [facility] May 30, 2024 01:45 PM [facility] Jun 08, 2024 10:00 AM [place] [facility] Jun 20, 2024 07:00 AM AMB[place]ORY [place]ONE [place] [facility] Jun 21, 2024 01:00 PM AMBUL[place]ORY [place] [facility] Jun 21, 2024 02:15 PM AM[place]UL[place]ORY - [place] [facility] Jun 29, 2024 07:00 AM AM[place]ORY [place] [facility] Jun 29, 2024 10:00 AM AMBULATORY - [place]IC[place] [facility] Jul 13, 2024 10:00 AM AMBULATORY - [place]IC[place] [facility] Jul 27, 2024 10:00 AM AMBULATORY - [place]IC[place] [facility] Aug 02, 2024 03:00 PM AM[place]ORY [place] [facility] Aug 14, 2024 01:00 PM AMBUL[place]ORY - [place] [facility] Aug 18, 2024 02:00 PM AM[place]UL[place]ORY [place] [facility] Sep 07, 2024 10:00 AM AM[place]UL[place]ORY [place]IC[place] [facility] Sep 18, 2024 02:00 PM [facility] Sep 19, 2024 10:30 AM [facility] [place] [facility] Sep 22, 2024 02:40 PM [facility] - [facility] [place] [facility] Sep 22, 2024 03:00 PM AMBULATORY - SURGERY [facility] Sep 25, 2024 11:15 AM AMBULATORY - SURGERY [facility] Social History: Smoking Status (Most current) and Tobacco Use (All prior to encounter date) This section includes the most current, and the historical, smoking and tobacco- related health factors from the OR facility where the Encounter took place. Current Smoking Status This section includes the most current smoking, or tobacco-related health factor, from the OR facility where the Encounter took place. Date/Time Current Smoking Status Comment Facil ity Nov 19, 2023 08:00 AM VA-TOBACCO QUIT 15 YRS OR MORE [facility] Tobacco Use History This section includes a history of the smoking, or tobacco-related health factors, that were collected on or before the date of the Encounter. The data comes from the [place] facility where the Encounter took place. Date/Time Smoking Status/Tobacco Use Comment F acility Nov 19, 2023 08:00 AM VA-TOBACCO QUIT 15 YRS OR MORE [facility] Jan 28, 2023 09:45 AM VA-TOBACCO FORMER USER [facility] Jan 28, 2023 09:45 AM VA-TOBACCO QUIT 15 YRS OR MORE [facility] Oct 30, 2021 03:00 PM VA-TOBACCO FORMER USER [facility] Oct 30, 2021 03:00 PM VA-TOBACCO QUIT 5 TO < 15 YRS [facility] Aug 17, 2019 11:38 AM VA-TOBACCO FORMER USER [facility] Aug 17, 2019 11:38 AM VA-TOBACCO QUIT 5 TO < 15 YRS [facility] Jan 06, 2018 02:39 PM FORMER TOBACCO USER 7Y OR GREATE R [facility] Jan 28, 2017 12:47 PM FORMER TOBACCO USER 7Y OR GREATE R [facility] Jan 21, 2016 03:04 PM FORMER TOBACCO USER 7Y OR GREATE R [facility] Apr 02, 2015 02:05 PM FORMER TOBACCO USER 7Y OR GREATE R [facility] March 01, 2014 09:10 AM FORMER TOBACCO USER 7Y OR GREATE R [facility] Sep 18, 2013 09:13 AM CDM COPD TOBACCO NON-USER [facility] May 28, 2013 11:05 AM LIFETIME NON-TOBACCO USER [facility] May 25, 2013 12:08 PM FORMER TOBACCO USER 7Y OR GREATE R [facility] Jun 18, 2009 09:48 AM FORMER TOBACCO USER 7Y OR GREATE R [facility] Aug 24, 2008 10:10 AM FORMER TOBACCO USE >1Y <7Y [facility] Advance Directives: All historical and current Section Date Range: From patient's date of to the date document was created. This section includes ALL of a patient's completed or amended [place] Advance and Rescinded Directives. The entries below indicate that a directive exists for the patient, but an actual copy is not included with this document. The data comes from all [facility]. Date Advance Directives Provider Source March 08, 2023 ADVANCE DIRECTIVE [facility] May 02, 2014 ADVANCE DIRECTIVE DISCUSSION QUEENIE SAENZ [facility] May 24, 2013 CLINICAL WARNING SHEYLAGALINDO Penny [facility] Sep 21, 2011 ADVANCE DIRECTIVE JORDAN ZHANG [facility] Radiology Reports: +/- 30 days of the [...] the Encounter. The data comes from all [place] treatment facilities. Date/Time Radiology Report Provider Source May 12, 2024 02:14 PM SHOULDER RIGHT 4V: KEENA ROSA [id number] -[id number] M Ex Date: MAY 12, 2024@14:14 Req Phys: ZENY MARTIN Loc: [facility] PACT JOYCE 4E (Req'g Loc) Img Loc: MAIN X-RAY Service: [place] [address] (Case [id number] COMPLETE) SHOULDER RIGHT 4V (RAD Detailed) CPT:39725 Proc Modifiers : RIGHT Reason for Study: r/o djd Clinical History: [facility] IS NOT under investigation for COVID-19 or is COVID-19 negative Chronic pain Responsible provider name and phone number to notify for critical findings if other than user placing the order and pager listed below: User placing orders pager: [phone] xt [id number] LAST CREATININE 0.9 (03/27/24) Report Status: Verified Date Reported: MAY 12, 2024 Date Verified: MAY 12, 2024 [employer] Assembler E-Sig: Report: SHOULDER RIGHT 4V HISTORY: r/o djd COMPARISON: Radiographs of the right shoulder dated 08/05/2023 TECHNIQUE: 4 view(s) of the right shoulder, submitted to the [place] National Teleradiology Program (NTP) for interpretation. FINDINGS/ [...] calcific tendinitis. READING PHYSICIAN: Marino Daily MD -[phone] 05/12/2024 12:50 PDT [facility] National Teleradiology Program [phone] (For Medical Practitioner Use Only) Attention Patients / Veterans: If you have questions or concerns about these test results, please contact your ordering provider or primary care team. Primary Interpreting Staff: RADIOLOGY,OUTSIDE SERVICE, Staff Physician / RADIOLOGY,OUTSIDE SERVICE [facility] May 12, 2024 02:14 PM WRIST RIGHT 3 VIEW S OR MORE: KEENA ROSA [id number] -[id number] M Exm Date: MAY 12, 2024@14:14 Req Phys: ZENY MARTIN Loc: [facility] PACT JOYCE 4E (Req'g Loc) Img Loc: MAIN X-RAY Service: [place] [address] (Case [id number] COMPLETE) WRIST RIGHT 3 VIEWS OR MORE (RAD Detailed) CPT:29310 Proc Modifiers : RIGHT Reason for Study: r/o djd Clinical History: IS NOT under investigation for COVID-19 or is COVID-19 negative Pain, no trauma Responsible provider name and phone number to notify for critical findings if other than user placing the order and pager listed below: User placing orders pager: [phone] LAST CREATININE 0.9 (03/27/24) Report Status: Verified Date Reported: MAY 12, 2024 Date Verified: MAY 12, 2024 [employer] As[employer]er E-Sig: Report: WRIST RIGHT 3 VIEWS OR MORE HISTORY: r/o djd COMPARISON: Radiographs of the right wrist dated 07/05/2020 TECHNIQUE: 3 view(s) of the right wrist, submitted to the [place] National Teleradiology Program (NTP) for interpretation. FINDINGS/ Impression: No fracture identified. Alignment is within normal limits. Severe degenerative changes of osteoarthritis involving the triscaphe joint. There is more mild degenerative change seen at the first carpometacarpal joint. READING PHYSICIAN: Marino Daily MD -[phone] 05/12/2024 12:52 PDT [facility] National Teleradiology Program [phone] (For Medical Practitioner Use Only) Attention Patients / Veterans: If you have questions or concerns about these test results, please contact your ordering provider or primary care team. Primary Interpreting Staff: RADIOLOGY,OUTSIDE SERVICE, Staff Physician / RADIOLOGY,OUTSIDE SERVICE [facility] Encounter Notes: All associated encounter notes This section contains the clinical notes associated to the Encounter. Date/Time Encounter Note(s) Provider Source May 16, 2024 12:58 PM DERMATOLOGY CONSUL T: LOCAL TITLE: DERMATOLOGY CONSULT STANDARD TITLE: DERMATOLOGY CONSULT DATE OF NOTE: MAY 16, 2024@12:58 ENTRY DATE: MAY 16, 2024@12:58:27 AUTHOR: SUYAPA BUSTILLOS I EXP COSIGNER: URGENCY: STATUS: COMPLETED DERMATOLOGY E-CONSULTATION Staff physician note Derm Problem List 1.Seborrheic dermatitis Reason for [...] of skin cancers (MARY LOU Dermatol. 2015 [place];151(6):594-9). A recent meta-analysis did show a slighly [...] Putting it in the refrigerator can help. Time = 5 min /kyle/ SUYAPA BUSTILLOS MD INTERNAL MEDICINE/DERMATOLOGY STAFF Signed: 05/16/2024 13:49 Receipt Acknowledged By: 05/16/2024 14:14 /kyle/ ZENY MARTIN MD PHYSICIAN SUYAPA BUSTILLOS I [facility]
--- OUTSIDE RECORDS SUMMARY | 2025-01-16 08:06 | XMS_ITS | Encounter Summary ---
Author Name [facility] [facility] [place] [facility] [place] [facility] [place] Address [address] [place] [address] Care Team Providers Care Log Data Technician Name Role Phone ZENY MARTIN Primary Care [...] PART A Oct 18, 2013 PART A [id number] Mary ROSA PATIENT MEDICARE (WNR) MEDICARE (M) PART B Oct 18, 2013 PART B [phone] Mary ROSA PATIENT MEDICARE (WNR) MEDICARE (M) PART A Oct 18, 2013 PART A [id number] Mary ROSA PATIENT Selected Encounter This section includes the information on record at [place] for the Encounter. Date/Time Encounter Type Encounter Description Reason Provider Source Dec 18, 2024 02:30 PM OFFICE O/P EST LOW 20 MIN ORTHO/JOINT SURG ICD-10-CM M25.511 Pain in right shoulder BENIGNO KIM Bandar Encounter Template Text not used by [place] Assessments - Encounter Diagnoses This section includes the primary and secondary diagnoses documented for the Encounter. Date/Time Primary/Secondary Diagnosis Diagnosis Name Provider Source Dec 18, 2024 04:11 PM PRIMARY Pain in right shoulder ANDREA WOLF [facility] Plan of Treatment: Future Appointments (+ 6 months) and Future Tests (+/- 45 days) The Plan of Treatment section includes future care activities for the patient from all [place] [facility]. This section includes future appointments and future orders which are active, pending or scheduled. Future Appointments This section includes appointments that were scheduled to occur 6 months from the date of the Encounter, up to a maximum of 20 appointments. The data comes from all [facility]. Appointment Date/Time Appointment Type Appointme nt Facility Name Dec 19, 2024 11:00 AM AMBULATORY - REHAB [facility] Dec 27, 2024 07:00 AM AMBULATORY - NONE [facility] Dec 28, 2024 10:00 AM AM[facility] Dec 28, 2024 11:00 AM AMBULATORY - REHAB [facility] Jan 01, 2025 01:30 PM AMBULATORY - REHAB [facility]IC[facility] Jan 24, 2025 01:00 PM AMBULATORY - SURGERY [facility] Jan 25, 2025 10:00 AM [facility] Jan 25, 2025 11:00 AM AMBULATORY - REHAB [facility] Feb 01, 2025 10:00 AM [facility] Feb 01, 2025 11:00 AM [facility] Feb 08, 2025 10:00 AM [facility] February 22, 2025 10:00 AM [facility] February 23, 2025 11:00 AM AMBULATORY - NONE [facility] February 23, 2025 11:30 AM AMBULATORY - SURGERY [facility] March 08, 2025 10:00 AM [facility]IC[facility] Apr 09, 2025 01:00 PM AMBULATORY - SURGERY [facility] Active, Pending, and Scheduled Orders This section includes a listing of several types of active, pending, and scheduled orders, including clinic medications orders, diagnostic test orders, procedure orders and consult orders; where the start date of the order is 45 days before the date of the Encounter or 45 days after the date of theEncounter. The data comes from all [place] treatment facilities. Test Date/Time Test Type Test Details Facility Name Dec 11, 2024 11:04 AM Consult Order PT PHYSICA L THERAPY OUTPT ORTHO SURGERY [facility] Jan 10, 2025 12:00 AM Laboratory - Blood Bank Order TYPE & SCREEN - LAB BLOOD WC [facility] Jan 12, 2025 08:18 AM Consult Order [facility] Jan 22, 2025 12:00 AM Laboratory - Chemi stry Order HEMOGLOBIN A1C BLOOD SP ONCE [facility] Jan 22, 2025 12:00 AM Laboratory - Chemi stry Order BASIC METABOLIC PANEL+MG PLASMA SP [facility] Lab Results: +/- 30 days of the [...] Range Comment Jan 11, 2025 12:21 PM [facility] FINGERSTICK GLUCOSE Specimen Type: BLOOD Comment: Save Result Nurse Notified Ordering Provider: ANDREA WOLF Report Released Date/Time: Jan 11, 2025 12:51 PM Reporting Lab: [facility] [phone] Performing Lab: [facility] [phone] FINGERSTICK GLUCOSE 246 mg/dL H 70-100 Jan 11, 2025 07:37 AM [facility] CBC Specimen Type: BLOOD No comment entered. Ordering Provider: ANDREA WOLF Report Released Date/Time: Jan 10, 2025 02:40 PM Reporting Lab: [facility] [phone] Performing Lab: [facility] [address] WBC 9.7 4.0-11.0 RBC 4.50 L 4.60-6.20 HGB 12.9 g/dL L 13.5-17.9 HCT 42.3 41.0-54.0 MCV 94.0 fL 80.0-100.0 MCH 28.7 pg 27.0-33.0 MCHC 30.5 g/dL L 32.0-37.5 PLT 174 150-400 MPV 11.5 fL 9.1-13.0 RDW 13.3 11.5-14.5 Jan 11, 2025 07:37 AM [facility] BASIC METABOLIC PANEL+MG Specimen Type: PLASMA No comment entered. Ordering Provider: ANDREA WOLF Report Released Date/Time: Jan 10, 2025 02:40 PM Reporting Lab: [facility] [id number] Performing Lab: [facility] [address] CREATININE 1.0 mg/dL 0.7-1.2 UREA NITROGEN 21 mg/dL 8-26 GLUCOSE 203 mg/dL H 70-100 SODIUM 136 mmol/L 136-145 POTASSIUM 4.1 mmol/L 3.5-5.1 CHLORIDE 102 mmol/L 98-107 CO2 23 mmol/L 22-29 CALCIUM 8.8 mg/dL 8.4-10.2 MAGNESIUM 2.0 mg/dL 1.6-2.6 ANION GAP 11 mmol/L 5-15 .CREAT EGFR(CKD-EPI) 80 >60 Jan 11, 2025 06:10 AM [facility] FINGERSTICK GLUCOSE Specimen Type: BLOOD Comment: Save Result Nurse Notified Ordering Provider: Lilli CHRISTENSEN Report Released Date/Time: Jan 11, 2025 07:41 AM Reporting Lab: [facility] [phone] Performing Lab: [facility] [address] FINGERSTICK GLUCOSE 220 mg/dL H 70-100 Jan 10, 2025 08:11 PM [facility] FINGERSTICK GLUCOSE Specimen Type: BLOOD Comment: Save Result Nurse Notified Ordering Provider: Lilli CHRISTENSEN Report Released Date/Time: Jan 10, 2025 08:36 PM Reporting Lab: [facility] [phone] Performing Lab: [facility] [address] FINGERSTICK GLUCOSE 239 mg/dL H 70-100 Jan 10, 2025 04:30 PM [facility] FINGERSTICK GLUCOSE Specimen Type: BLOOD Comment: Save Result Nurse Notified Ordering Provider: Lilli CHRISTENSEN Report Released Date/Time: Jan 10, 2025 05:34 PM Reporting Lab: [facility] [phone] Performing Lab: [facility] [address] FINGERSTICK GLUCOSE 190 mg/dL H 70-100 Jan 10, 2025 02:40 PM [facility] FINGERSTICK GLUCOSE Specimen Type: BLOOD Comment: Save Result Nurse Notified Ordering Provider: BENIGNO KIM A Report Released Date/Time: Jan 10, 2025 03:01 PM Reporting Lab: [facility] [phone] Performing Lab: [facility] [address] FINGERSTICK GLUCOSE 183 mg/dL H 70-100 Jan 10, 2025 08:35 AM [facility] ACT PART THROMBO TIME Specimen Type: PLASMA Comment: ~Draw on admission. Call IV team to draw on admission. Ordering Provider: BENIGNO KIM Report Released Date/Time: Jan 10, 2025 08:01 AM Reporting Lab: [facility] [phone] Performing Lab: [facility] [address] APTT 31.4 s 25.1-36.5 Jan 10, 2025 08:35 AM [facility] PROTHROMBIN TIME/INR Specimen Type: PLASMA Comment: ~Draw on admission. Call IV team to draw on admission. Ordering Provider: BENIGNO KIM Report Released Date/Time: Jan 10, 2025 08:01 AM Reporting Lab: [facility] [phone] Performing Lab: [facility] [address] .INR 0.9 0.8-1.1 .PT 10.9 s 9.4-12.5 Jan 10, 2025 08:35 AM [facility] CBC Specimen Type: BLOOD No comment entered. Ordering Provider: BENIGNO KIM A Report Released Date/Time: Jan 10, 2025 08:01 AM Reporting Lab: [facility] [phone] Performing Lab: [facility] [address] WBC 6.6 4.0-11.0 RBC 5.00 4.60-6.20 HGB 14.5 g/dL 13.5-17.9 HCT 46.1 41.0-54.0 MCV 92.2 fL 80.0-100.0 MCH 29.0 pg 27.0-33.0 MCHC 31.5 g/dL L 32.0-37.5 PLT 172 150-400 MPV 10.9 fL 9.1-13.0 RDW 13.7 11.5-14.5 Jan 10, 2025 08:35 AM [facility] BASIC METABOLIC PANEL+MG Specimen Type: PLASMA No comment entered. Ordering Provider: BENIGNO KIM A Report Released Date/Time: Jan 10, 2025 08:01 AM Reporting Lab: [facility] [phone] Performing Lab: [facility] [phone] CREATININE 0.9 mg/dL 0.7-1.2 UREA NITROGEN 19 mg/dL 8-26 GLUCOSE 151 mg/dL H 70-100 SODIUM 138 mmol/L 136-145 POTASSIUM 3.9 mmol/L 3.5-5.1 CHLORIDE 106 mmol/L 98-107 CO2 23 mmol/L 22-29 CALCIUM 9.3 mg/dL 8.4-10.2 MAGNESIUM 2.0 mg/dL 1.6-2.6 ANION GAP 9 mmol/L 5-15 .CREAT EGFR(CKD-EPI) >90 >60 Jan 10, 2025 08:35 AM [facility] FINGERSTICK GLUCOSE Specimen Type: BLOOD Comment: Save Result Ordering Provider: BENIGNO KIM A Report Released Date/Time: Jan 10, 2025 10:31 AM Reporting Lab: [facility] [phone] Performing Lab: [facility] [address] FINGERSTICK GLUCOSE 155 mg/dL H 70-100 Dec 18, 2024 12:16 PM [facility] ALBUMIN Specimen Type: PLASMA No comment entered. Ordering Provider: BENIGNO KIM A Report Released Date/Time: Sep 27, 2024 10:57 AM Reporting Lab: [facility] [phone] Performing Lab: [facility] [address] ALBUMIN 4.4 g/dL 3.5-5.0 Dec 18, 2024 12:16 PM [facility] HEMOGLOBIN A1C Specimen Type: BLOOD Comment: Values [...] Sep 27, 2024 10:57 AM Reporting Lab: [facility] [phone] Performing Lab: [facility] [phone] HEMOGLOBIN A1C 7.1 H 4.0-6.0 Dec 18, 2024 12:16 PM [facility] PROTHROMBIN TIME/INR Specimen Type: PLASMA No comment entered. Ordering Provider: BENIGNO KIM A Report Released Date/Time: Sep 27, 2024 10:57 AM Reporting Lab: [facility] [phone] Performing Lab: [facility] [address] .INR 0.9 0.8-1.1 .PT 10.3 s 9.4-12.5 Dec 18, 2024 12:16 PM [facility] BASIC METABOLIC PANEL+MG Specimen Type: PLASMA No comment entered. Ordering Provider: BENIGNO KIM A Report Released Date/Time: Sep 27, 2024 10:57 AM Reporting Lab: [facility] [phone] Performing Lab: [facility] [address] CREATININE 1.0 mg/dL 0.7-1.2 UREA NITROGEN 19 mg/dL 8-26 GLUCOSE 118 mg/dL H 70-100 SODIUM 139 mmol/L 136-145 POTASSIUM 4.1 mmol/L 3.5-5.1 CHLORIDE 104 mmol/L 98-107 CO2 25 mmol/L 22-29 CALCIUM 9.6 mg/dL 8.4-10.2 MAGNESIUM 2.1 mg/dL 1.6-2.6 ANION GAP 10 mmol/L 5-15 .CREAT EGFR(CKD-EPI) 80 >60 Dec 18, 2024 12:16 PM [facility] CBC & DIFF Specimen Type: BLOOD Comment: Automated Differential Performed Ordering Provider: BENIGNO KIM A Report Released Date/Time: Sep 27, 2024 10:57 AM Reporting Lab: [facility] [phone] Performing Lab: [facility] [address] WBC 9.5 4.0-11.0 RBC 5.05 4.60-6.20 HGB [...] 18, 2024 02:06 PM 72 111/72 95 [facility] Social History: Smoking Status (Most [...] Serina ity Nov 19, 2023 08:00 AM VA-TOBACCO FORMER USER [facility] Tobacco Use History This section includes a history of the smoking, or tobacco-related health factors, that were collected on or before the date of the Encounter. The data comes from the [place] facility where the Encounter took place. Date/Time Smoking Status/Tobacco Use Comment F acility Nov 19, 2023 08:00 AM VA-TOBACCO QUIT 15 YRS OR MORE [facility] Jan 28, 2023 09:45 AM VA-TOBACCO FORMER USER [facility] Jan 28, 2023 09:45 AM VA-TOBACCO QUIT 15 YRS OR MORE [facility] Oct 30, 2021 03:00 PM VA-TOBACCO FORMER USER [facility] Oct 30, 2021 03:00 PM VA-TOBACCO QUIT 5 TO < 15 YRS [facility] Aug 17, 2019 11:38 AM VA-TOBACCO FORMER USER [facility] Aug 17, 2019 11:38 AM VA-TOBACCO QUIT 5 TO < 15 YRS [facility] Jan 06, 2018 02:39 PM FORMER TOBACCO USER 7Y OR GREATE R [facility] Jan 28, 2017 12:47 PM FORMER TOBACCO USER 7Y OR GREATE R [facility] Jan 21, 2016 03:04 PM FORMER TOBACCO USER 7Y OR GREATE R [facility] Apr 02, 2015 02:05 PM FORMER TOBACCO USER 7Y OR GREATE R [facility] March 01, 2014 09:10 AM FORMER TOBACCO USER 7Y OR GREATE R [facility] Sep 18, 2013 09:13 AM CDM COPD TOBACCO NON-USER [facility] May 28, 2013 11:05 AM LIFETIME NON-TOBACCO USER [facility] May 25, 2013 12:08 PM FORMER TOBACCO USER 7Y OR GREATE R [facility] Jun 18, 2009 09:48 AM FORMER TOBACCO USER 7Y OR GREATE R [facility] Aug 24, 2008 10:10 AM FORMER TOBACCO USE >1Y <7Y [facility] Advance Directives: All historical and current Section Date Range: From patient's date of to the date document was created. This section includes ALL of a patient's completed or amended [place] Advance and Rescinded Directives. The entries below indicate that a directive exists for the patient, but an actual copy is not included with this document. The data comes from all [place] facilities. Date Advance Directives Provider Source March 08, 2023 ADVANCE DIRECTIVE ODILIA CHRISTIANSON [facility] May 02, 2014 ADVANCE DIRECTIVE DISCUSSION QUEENIE SAENZ [facility] May 24, 2013 CLINICAL WARNING GALINDO STUART [facility] Sep 21, 2011 ADVANCE DIRECTIVE JORDAN ZHANG [facility] Radiology Reports: +/- 30 days of [...] AM SHOULDER RIGHT 2-3 VIEWS: KEENA ROSA [id number] -[id number] M Exm Date: JAN 10, 2025@07:58 Req Phys: JULIOSHELLI Pat Loc: OR-PACU/01-10-2025@15:42 Img Loc: MAIN X-RAY Service: [place] [address] (Case [id number] COMPLETE) SHOULDER RIGHT 2-3 VIEWS (RAD Detailed) CPT:73321 Proc Modifiers : PORTABLE EXAM, OPERATING ROOM EXAM Reason for Study: right reverse TSA Clinical History: OR 6 shoulder rotator cuff arthropathy My pager number on record is: . I confirm that the pager number/cell phone number above is correct for reporting critical results. My correct contact # for critial results is:Valerio KIM [phone] Trainees only: Enter your staff provider's info here: LAST CREATININE 1.0 (12/18/24) Report Status: Verified Date Reported: JAN 10, 2025 Date Verified: JAN 10, 2025 Sales Center Associate E-Sig:/ES/MIRANDA BROOKE MD Report: EXAMINATION: SHOULDER RIGHT 2-3 VIEWS 01/10/2025 7:58 AM INDICATION: right reverse TSA Impression: Right reverse TSA. Components appear well seated. Report Sign Date/Time: 01/10/2025 3:39 PM Primary Interpreting Staff: MIRANDA BROOKE MD, RADIOLOGIST (Sales Center Associate) /MIRANDA PAULSON [facility] Encounter Notes: All associated encounter notes This section contains the clinical notes associated to the Encounter. Date/Time Encounter Note(s) Provider Source Dec 18, 2024 04:54 PM SURGERY BUDGET COORDINATOR NOTE: LOCAL TITLE: SURGERY COORDINATOR NOTE STANDARD TITLE: SURGERY BUDGET COORDINATOR NOTE DATE OF NOTE: DEC 18, 2024@16:54 ENTRY DATE: DEC 18, 2024@16:54:10 AUTHOR: MARIELENA AYERS EXP COSIGNER: URGENCY: STATUS: COMPLETED SUBJECT: pre-op- orthopedic surgery education SURGERY COORDINATOR NOTE Has ADDENDA SURGERY COORDINATOR PRE-PROCEDURE NOTE [place] seen F2F in clinic to review surgery instructions Surgical Procedure: Right Reverse TSA with Dr. kim Surgery Date: 01/10 Consent: 12/18 ALLERGIES: see cover sheet PREOPERATIVE ASSESSMENT: H&P: 12/18 EK/3 LABS: 12/18 PHYSICAL EVALUATION Level of Consciousness/mental status intact: yes Medication Management: home health nurse sets up his meds every two weeks. Stressed he needs to provide anes medication instructions to his nurse, but if he has questions he can have her call physician underwriter. Directed to physician underwriter's direct number in case his nurse has any questions or concerns Diabetes: yes Obstructive Airway:yes on 2L o2 during the day and o2 with bipap at night Medical devices: none MDRO/Contact Precautions/isolation: none COVID19:call will get a phone call prior to surgery for symptom screen Reviewed visitor policy with patient/family. CARE TRANSITION/PLAN OF CARE: * Admission: patient aware call will be made approx 3 days prior to surgery to review case order/ check in time - Check in at the surgery center PREOP INSTRUCTIONS: No food 8 hours prior to check in time, clear liquids(water, coffee NO cream) okay up until 2 hours prior to check in time Antibacterial showers/scrubs to be completed the evening prior to surgery: Location: Right upper extremity Scrub instructions: twice evening prior 4 hours apart Instructed not to bring meds, jewelry, money or valuables informed to alert coord team if patient develps any symptoms of illness * scrubs and education folder provided to MEDICATION INSTRUCTIONS: He will follow med instructions provided at preop appt with anes provider or med preop provider. No NSAIDS/ Supplements 7 days prior to surgery per ORTHO Blood thinner: none Reviewed instructions for premeds and directed to poultry picker on his way out today Written instructions were provided and reviewed with patient. POST-OP INSTRUCTIONS: Pain scale reviewed and discussed ways to control pain Importance of icing and elevating extremity Signs of infection and other reasons to call the clinic, numbers provided Dressing Movement restrictions social work consult placed for concerns post op-- uses a rollator and will be NWB with Right upper extremity for at least 6 weeks Equipment:Shoulder immobilizer fitted by ortho team- directed to bring back on the Day of surgery instructed to bring his BIPAP on the day of surgery Reviewed importance of keeping his OT appt tomorrow * mentioned he preferrs only females on his care team - example provided- I only want female nurses. DISCHARGE INSTRUCTIONS: Follow discharge instructions given upon discharge from the hospital Follow up: Post op appts confirmed with PRINTED MATERIALS The following perioperative materials were discussed. Printed materials given and written preoperative instructions given to patient: Surgery folder with surgery instructions, coordinator contact information, illustrated instructions for preop scrubs, postop pain management booklet, dvt pamphlet, covid19 and surgery handout, surgery specific surgery booklet PATIENT/FAMILY RESPONSE(OUTCOME) Patient states understanding and has contact information for follow-up or additional concerns. /kyle/ MARIELENA AYERS RN REGISTERED STAFF NURSE Signed: 12/18/2024 17:07 12/18/2024 ADDENDUM STATUS: COMPLETED forgot to poultry picker his medications at the pharmacy. Called and told him I would have them mailed. He denied any further questions at time of call. /kyle/ MARIELENA AYERS RN REGISTERED STAFF NURSE Signed: 12/18/2024 17:11 MARIELENA AYERS [facility] Dec 18, 2024 03:51 PM H & P NOTE: LOCAL TITLE: H&P HISTORY & PHYSICAL STANDARD TITLE: H & P NOTE DATE OF NOTE: DEC 18, 2024@15:51 ENTRY DATE: DEC 18, 2024@15:51:30 AUTHOR: ANDREA WOLF EXP COSIGNER: URGENCY: STATUS: COMPLETED Preoperative Shoulder Surgery History and Physical Chief Complaint: Shoulder Pain History of Present Illness: 69 year old MALE RHD with right shoulder pain of several years' duration. Symptoms interfere with quality of life. He would like to pursue shoulder replacement. 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 This was intentional. No h/o cancer. He enjoys woodworking and working outdoors. He bought land in [place] [employer] a few years ago and his goal is to build a container home on the land. Uses oxygen most of the time. Currently on 2L NC. Does not use O2 when welding or using table saw. He lives with another person who is not especially helpful to him. Does own ADLs. His son will likely be here on day of surgery. Assistive Devices: 4 wheeled walker, sometimes Prior Treatments: - Activity modification: yes - Physical therapy: yes - Over the counter analgesics: yes - Prescription pain medications: n/a - Injections: CSI and JC series - Prior Surgeries: N/A No recent fevers, chills, night sweats, unintentional weight loss, GI upset, chest pain, shortness of breath, urinary symptoms. Past Medical History: Active problems - Computerized Problem List is the source for the followin. Diabetic peripheral neuropathy (SNOMED CT 425011563) 2. Sleep apnea (SNOMED CT 28397410) - iVAPS: R: 18, PS: 7-16, EPAP+14, Mirag Quatt Med 3. Severe chronic obstructive pulmonary disease (SNOMED CT 396717253) 4. Personal History of Tobacco Use - Quit 2003, Smoked x 25 years 5. Inguinial Hernia Repair 6. Benign essential hypertension (SNOMED CT 2565741) 7. Erectile dysfunction (SNOMED CT 897910891) 8. Osteoarthrosis involving the spine 9. Hyperlipidemia (SNOMED CT 93237869) 10. Polyp of colon (SNOMED CT 66538148) 11. Open Angle, Primary 12. Morbid obesity (SNOMED CT 042546091) 13. History of adenomatous polyp of colon - By 2008 colonoscopy 14. Hypothyroidism 15. Mild memory disturbance - Due to multiple medical etiologies; Normal NPT 2014 16. History of repair of umbilical hernia 17. Chronic pain following right total knee arthroplasty (SNOMED CT 315086361739 18. Hip pain 19. Iron deficiency anemia 20. Diabetes mellitus type 2 without retinopathy (SNOMED CT 6942115974059) 21. Hypokalemia 22. Obesity 23. Ventricular bigeminy 24. Acute non-ST segment elevation myocardial infarction 25. PVC - premature ventricular contraction (SNOMED CT 230346229) 26. Coronary arteriosclerosis - s/p FRED x1 [...] DULOXETINE (Feb 11, 2016) Past Surgical History: JAN 10, 2025 Proc: Right reverse TSA MARCH 08, 2023 Proc: Right Total Knee Arthroplasty JAN 09, 2022 Proc: ercp JAN 13, 2022 Proc: left total hip arthroplasty Family History: -No known family history of bleeding or clotting disorders. No known family history of anesthetic related complications. Social History: 1. Tobacco - Denies 2. Alcohol - Denies 3. Illicit Drug Use - Denies 4. Living Situation - lives in a home in [place] with another person who does not help him. Has a nurse that comes in once every 2 weeks to help out 5. Work - retired. Enjoys woodworking, outdoors Review of Systems: -12 point review of systems completed with the patient and is negative except for that listed in the HPI. Physical Examination: Temp: 97.4 F [36.3 C] (09/25/2024 11:52) Pulse:72 (12/18/2024 14:06) BP: 111/72 (12/18/2024 14:06) Resp: 16 (09/25/2024 11:52) Weight: 186 lb [84.37 kg] (12/14/2024 11:13) Pain: 8 (09/25/2024 11:52) O2 Sat: 95% (12/18/2024 14:06) BMI: 26.7 General: No acute distress. Alert and oriented x 4. Respiratory: Non-labored breathing on 2L NC (portable O2 unit) Cardiovascular: Skin warm and well perfused. Regular rate to peripheral pulse. Neck Examination: -No tenderness to palpation in midline or paraspinal muscles -Full flexion, extension, side bend, and rotation without pain - Spurling test bilaterally Right Upper Extremity: -Palpable radial pulse -SILT median, ulnar, radial, musculocutaneous, axillary nerve distribution -Surgical scars: N/A -Shoulder Palpation: minor pain about shoulder -Shoulder ROM: Active 90 FF ; abduction (5/5) to 30 deg active, IR deferred due to pain -5/5 deltoid, bicep, tricep, wrist flexion, wrist extension, EPL, FPL, IO strength -4/5 supra, infra, subscap NVI in RUE Imaging: Shoulder X-Ray and CT Diffuse glenohumeral joint disease including sclerosis, osteophytes. Labs: - INR: INR 0.9 PLASMA (12/18/24 12:16) - Complete Blood Count White count: WBC 9.5 (12/18/24) Hemoglobin: HGB 14.9 (12/18/24) Hematocrit: HCT 47.6 (12/18/24) Platelets: PLT 217 (12/18/24) - Complete Metabolic Panel SODIUM 139 (12/18/24) POTASSIUM 4.1 (12/18/24) CHLORIDE 104 (12/18/24) CO2 25 (12/18/24) UREA NITROGEN 19 (12/18/24) CREATININE 1.0 (12/18/24) GLUCOSE 118 H (12/18/24) CALCIUM 9.6 (12/18/24) MAGNESIUM 2.1 (12/18/24) EGFR (05/21) 10/30/2021@1400 84 CREATININE EGFR (CKD-EPI) 12/18/2024@1216 80 ALBUMIN 4.4 (12/18/24) No data available - Hemoglobin A1c LAB TESTS SELECTED Collection DT Specimen Test Name Result Units Ref Range 12/18/2024 12:16 BLOOD !! HEMOGLOBIN A1C 7.1 H % 4.0 - 6.0 !! Indicates COMMENTS AVAILABLE...Refer to Interim Lab Report. Assessment: 69 year old MALE with end stage R shoulder rotator cuff arthropathy. Indicated for a RIGHT reverse TSA with Dr. Kim. Plan for OR on 01/10. Reviewed risks and benefits. informed consent obtained. Of note, he is on O2 at baseline. Has significant cardiac history. He lives alone and otherwise has a son who may be present on day of surgery. We discussed options postop including TCU. He is hesitant about TCU but understands potential safety concerns since he essentially is on his own in his home. He does have a nurse who comes once every 2 weeks. Full code for OR and hospitalization. Has lost > 100 lbs on ozempic and withe the MOVE program. Plan: -Preoperative orthopedic history and physical completed -Preoperative laboratory workup completed -Preoperative antibiotic orders completed -Preoperative admission orders completed -If indicated postoperative physical therapy orders entered -Written informed consent completed in clinic today. Risks, benefits, possible complications and alternatives to the planned procedure were discussed in detail with the patient. The patient elected to proceed with the planned procedure. -Medicine preoperative evaluation complete and optimized. Patient will follow up on scheduled date for surgery Staff: Dr. Kim /kyle/ ANDREA WOLF MD RESIDENT Signed: 12/18/2024 16:11 ANDREA WOLF [facility] Dec 18, 2024 03:50 PM SURGERY NOTE: LOCAL TITLE: LORENZ FRAILTY TOOL STANDARD TITLE: SURGERY NOTE DATE OF NOTE: DEC 18, 2024@15:50 ENTRY DATE: DEC 18, 2024@15:50:11 AUTHOR: ANDREA WOLF EXP COSIGNER: URGENCY: STATUS: COMPLETED FRAILTY CALCULATION: Risk Analysis Index (LORENZ) score is: Score: 34 Variable Score Sex: 3 Cancer Status: No Weight Loss: 0 Poor Appetite: 0 Renal Insufficiency: 0 Chronic/Congestive Heart Failure: 5 Shortness of Breath: 3 Dependent Livin Cognitive Decline: No ADL*Cognitive Decline: 1 Mobility: Needs help from a cane, walker or scooter Eating: Can plan and prepare his/her own meals Toileting: Can use the toilet without help Personal Hygiene: Can shower or bathe without prompting or help LORENZ Score: 34 LORENZ Score 34 Scores =37 indicate significant frailty and should be discussed with the surgeon and patient. Note: This table displays the breakdown of the LORENZ score with the points attributed to each clinical parameter, including the statistical interactions between VAG-xtx-Xdxamkvas and Fwu-mkn-Uzjnvs. Clinicians can reference the table to determine the impact of any given risk factor on the reported LORENZ score. /kyle/ ANDREA WOLF MD RESIDENT Signed: 12/18/2024 15:51 ANDREA WOLF [facility]
--- OUTSIDE RECORDS SUMMARY | 2025-01-16 08:06 | XMS_ITS ---
Author Name [facility] [facility] Address [address] [place] [address] Care Team Providers Care Carpenter Ship Name Role Phone ZENY MARTIN Primary Care [...] PART A Oct 18, 2013 PART A [id number] Mary ROSA PATIENT MEDICARE (WNR) MEDICARE (M) PART B Oct 18, 2013 PART B [id number] Mary ROSA EOMIRELAD PATIENT MEDICARE (WNR) MEDICARE (M) PART A Oct 18, 2013 PART A [id number] Mary ROSA PATIENT Selected Encounter This section includes the information on record at [place] for the Encounter. Date/Time Encounter Type Encounter Description Reason Pro vider Source Dec 28, 2024 11:00 AM Outpatient Encounter OCCUPATIONAL THERAPY [...] 20 appointments. The data comes from all [facility]. Appointment Date/Time Appointment Type Appointme nt Facility Name Jan 01, 2025 01:30 PM AMBULATORY - REHAB MEDICIN [facility] Jan 24, 2025 01:00 PM AMBULATORY - SURGERY [facility] Jan 25, 2025 10:00 AM AMBULATORY - MEDICINE [facility] Jan 25, 2025 11:00 AM AMBULATORY - REHAB MEDICIN E [facility] Feb 01, 2025 10:00 AM AMBULATORY - MEDICINE [facility] Feb 01, 2025 11:00 AM AMBULATORY - MEDICINE [facility] Feb 08, 2025 10:00 AM AMBULATORY - MEDICINE [facility] February 22, 2025 10:00 AM AMBULATORY - MEDICINE [facility] February 23, 2025 11:00 AM AMBULATORY - NONE [facility] February 23, 2025 11:30 AM AMBULATORY - SURGERY [facility] March 08, 2025 10:00 AM AMBULATORY - MEDICINE [facility] Apr 09, 2025 01:00 PM AMBULATORY - SURGERY [facility] Active, Pending, and Scheduled Orders This section includes a listing of several types of active, pending, and scheduled orders, including clinic medications orders, diagnostic test orders, procedure orders and consult orders; where the start date of the order is 45 days before the date of the Encounter or 45 days after the date of theEncounter. The data comes from all [facility]. Test Date/Time Test Type Test Details Facility Name Dec 11, 2024 11:04 AM Consult Order PT PHYSICA L THERAPY OUTPT ORTHO SURGERY Cons Director [facility] [place] Jan 10, 2025 12:00 AM Laboratory - Blood Bank Order TYPE & SCREEN - LAB BLOOD WC [facility] Jan 12, 2025 08:18 AM Consult Order [facility] [place] [facility] Cons Director [facility] [place] Jan 22, 2025 12:00 AM Laboratory - Chemi stry Order HEMOGLOBIN A1C BLOOD SP ONCE [facility] Jan 22, 2025 12:00 AM Laboratory - Chemi stry Order BASIC METABOLIC PANEL+MG PLASMA SP [facility] Lab Results: +/- 30 days of the encounter This section includes the Chemistry and Hematology Lab Results on record with [place] for the patient. Radiology Reports and Pathology Reports are provided separately, in subsequent sections. Lab Results This section contains the Chemistry/Hematology Results that were resulted 30 days before or 30 daysafter the date of the Encounter. Date/Time Source Result Type Result - Unit Interpretation Reference Range Comment Jan 11, 2025 12:21 PM [facility] FINGERSTICK GLUCOSE Specimen Type: BLOOD Comment: Save Result Nurse Notified Ordering Provider: ANDREA WOLF Report Released Date/Time: Jan 11, 2025 12:51 PM Reporting Lab: [facility] [phone] Performing Lab: [facility] [phone] FINGERSTICK GLUCOSE 246 mg/dL H 70-100 Jan 11, 2025 07:37 AM [facility] CBC Specimen Type: BLOOD No comment entered. Ordering Provider: ANDREA WOLF Report Released Date/Time: Jan 10, 2025 02:40 PM Reporting Lab: [facility] [phone] Performing Lab: [facility] [phone] WBC 9.7 4.0-11.0 RBC 4.50 L 4.60-6.20 HGB 12.9 g/dL L 13.5-17.9 HCT 42.3 41.0-54.0 MCV 94.0 fL 80.0-100.0 MCH 28.7 pg 27.0-33.0 MCHC 30.5 g/dL L 32.0-37.5 PLT 174 150-400 MPV 11.5 fL 9.1-13.0 RDW 13.3 11.5-14.5 Jan 11, 2025 07:37 AM [facility] BASIC METABOLIC PANEL+MG Specimen Type: PLASMA No comment entered. Ordering Provider: ANDREA WOLF Report Released Date/Time: Jan 10, 2025 02:40 PM Reporting Lab: [facility] [phone] Performing Lab: [facility] [phone] CREATININE 1.0 mg/dL 0.7-1.2 UREA NITROGEN 21 mg/dL 8-26 GLUCOSE 203 mg/dL H 70-100 SODIUM 136 mmol/L 136-145 POTASSIUM 4.1 mmol/L 3.5-5.1 CHLORIDE 102 mmol/L 98-107 CO2 23 mmol/L 22-29 CALCIUM 8.8 mg/dL 8.4-10.2 MAGNESIUM 2.0 mg/dL 1.6-2.6 ANION GAP 11 mmol/L 5-15 .CREAT EGFR(CKD-EPI) 80 >60 Jan 11, 2025 06:10 AM [facility] FINGERSTICK GLUCOSE Specimen Type: BLOOD Comment: Save Result Nurse Notified Ordering Provider: Lilli CHRISTENSEN Report Released Date/Time: Jan 11, 2025 07:41 AM Reporting Lab: [facility] [phone] Performing Lab: [facility] [phone] FINGERSTICK GLUCOSE 220 mg/dL H 70-100 Jan 10, 2025 08:11 PM [facility] FINGERSTICK GLUCOSE Specimen Type: BLOOD Comment: Save Result Nurse Notified Ordering Provider: Lilli CHRISTENSEN Report Released Date/Time: Jan 10, 2025 08:36 PM Reporting Lab: [facility] [phone] Performing Lab: [facility] [phone] FINGERSTICK GLUCOSE 239 mg/dL H -100 Jan 10, 2025 04:30 PM [facility] FINGERSTICK GLUCOSE Specimen Type: BLOOD Comment: Save Result Nurse Notified Ordering Provider: Lilli CHRISTENSEN Report Released Date/Time: Jan 10, 2025 05:34 PM Reporting Lab: [facility] [phone] Performing Lab: [facility] [phone] FINGERSTICK GLUCOSE 190 mg/dL H 70-100 Jan 10, 2025 02:40 PM [facility] FINGERSTICK GLUCOSE Specimen Type: BLOOD Comment: Save Result Nurse Notified Ordering Provider: BENIGNO KIM Report Released Date/Time: Jan 10, 2025 03:01 PM Reporting Lab: [facility] [phone] Performing Lab: [facility] [phone] FINGERSTICK GLUCOSE 183 mg/dL H 70-100 Jan 10, 2025 08:35 AM [facility] ACT PART THROMBO TIME Specimen Type: PLASMA Comment: ~Draw on admission. Call IV team to draw on admission. Ordering Provider: BENIGNO KIM A Report Released Date/Time: Jan 10, 2025 08:01 AM Reporting Lab: [facility] [phone] Performing Lab: [facility] [phone] APTT 31.4 s 25.1-36.5 Jan 10, 2025 08:35 AM [facility] PROTHROMBIN TIME/INR Specimen Type: PLASMA Comment: ~Draw on admission. Call IV team to draw on admission. Ordering Provider: BENIGNO KIM A Report Released Date/Time: Jan 10, 2025 08:01 AM Reporting Lab: [facility] [phone] Performing Lab: [facility] [phone] .INR 0.9 0.8-1.1 .PT 10.9 s 9.4-12.5 Jan 10, 2025 08:35 AM [facility] CBC Specimen Type: BLOOD No comment entered. Ordering Provider: BENIGNO KIM A Report Released Date/Time: Jan 10, 2025 08:01 AM Reporting Lab: [facility] [phone] Performing Lab: [facility] [phone] WBC 6.6 4.0-11.0 RBC 5.00 4.60-6.20 HGB 14.5 g/dL 13.5-17.9 HCT 46.1 41.0-54.0 MCV 92.2 fL 80.0-100.0 MCH 29.0 pg 27.0-33.0 MCHC 31.5 g/dL L 32.0-37.5 PLT 172 150-400 MPV 10.9 fL 9.1-13.0 RDW 13.7 11.5-14.5 Jan 10, 2025 08:35 AM [facility] BASIC METABOLIC PANEL+MG Specimen Type: PLASMA No comment entered. Ordering Provider: BENIGNO KIM A Report Released Date/Time: Jan 10, 2025 08:01 AM Reporting Lab: [facility] [phone] Performing Lab: [facility] [phone] CREATININE 0.9 mg/dL 0.7-1.2 UREA NITROGEN 19 mg/dL 8-26 GLUCOSE 151 mg/dL H 70-100 SODIUM 138 mmol/L 136-145 POTASSIUM 3.9 mmol/L 3.5-5.1 CHLORIDE 106 mmol/L 98-107 CO2 23 mmol/L 22-29 CALCIUM 9.3 mg/dL 8.4-10.2 MAGNESIUM 2.0 mg/dL 1.6-2.6 ANION GAP 9 mmol/L 5-15 .CREAT EGFR(CKD-EPI) >90 >60 Jan 10, 2025 08:35 AM [facility] FINGERSTICK GLUCOSE Specimen Type: BLOOD Comment: Save Result Ordering Provider: BENIGNO KIM Report Released Date/Time: Jan 10, 2025 10:31 AM Reporting Lab: [facility] [phone] Performing Lab: [facility] [address] FINGERSTICK GLUCOSE 155 mg/dL H 70-100 Dec 18, 2024 12:16 PM [facility] ALBUMIN Specimen Type: PLASMA No comment entered. Ordering Provider: BENIGNO KIM A Report Released Date/Time: Sep 27, 2024 10:57 AM Reporting Lab: [facility] [phone] Performing Lab: [facility] [phone] ALBUMIN 4.4 g/dL 3.5-5.0 Dec 18, 2024 12:16 PM [facility] HEMOGLOBIN A1C Specimen Type: BLOOD Comment: [...] Sep 27, 2024 10:57 AM Reporting Lab: [facility] [phone] Performing Lab: [facility] [phone] HEMOGLOBIN A1C 7.1 H 4.0-6.0 Dec 18, 2024 12:16 PM [facility] PROTHROMBIN TIME/INR Specimen Type: PLASMA No comment entered. Ordering Provider: BENIGNO KIM A Report Released Date/Time: Sep 27, 2024 10:57 AM Reporting Lab: [facility] [phone] Performing Lab: [facility] [phone] .INR 0.9 0.8-1.1 .PT 10.3 s 9.4-12.5 Dec 18, 2024 12:16 PM [facility] BASIC METABOLIC PANEL+MG Specimen Type: PLASMA No comment entered. Ordering Provider: BENIGNO KIM A Report Released Date/Time: Sep 27, 2024 10:57 AM Reporting Lab: [facility] [phone] Performing Lab: [facility] [phone] CREATININE 1.0 mg/dL 0.7-1.2 UREA NITROGEN 19 mg/dL 8-26 GLUCOSE 118 mg/dL H 70-100 SODIUM 139 mmol/L 136-145 POTASSIUM 4.1 mmol/L 3.5-5.1 CHLORIDE 104 mmol/L 98-107 CO2 25 mmol/L 22-29 CALCIUM 9.6 mg/dL 8.4-10.2 MAGNESIUM 2.1 mg/dL 1.6-2.6 ANION GAP 10 mmol/L 5-15 .CREAT EGFR(CKD-EPI) 80 >60 Dec 18, 2024 12:16 PM [facility] CBC & DIFF Specimen Type: BLOOD Comment: Automated Differential Performed Ordering Provider: BENIGNO KIM Report Released Date/Time: Sep 27, 2024 10:57 AM Reporting Lab: [facility] [phone] Performing Lab: [facility] [phone] WBC 9.5 4.0-11.0 RBC 5.05 4.60-6.20 HGB [...] Height Weight Body Mass Index Source Dec 28, 2024 11:38 AM 185.5 [facility] Social History: Smoking Status (Most current) and Tobacco Use (All prior to encounter date) This section includes the most current, and the historical, smoking and tobacco- related health factors from the [place] facility where the Encounter took place. Current Smoking Status This section includes the most current smoking, or tobacco-related health factor, from the [place] facility where the Encounter took place. Date/Time Current Smoking Status Comment Facil ity Nov 19, 2023 08:00 AM VA-TOBACCO FORMER USER [facility] Tobacco Use History This section includes a history of the smoking, or tobacco-related health factors, that were collected on or before the date of the Encounter. The data comes from the [place] facility where the Encounter took place. Date/Time Smoking Status/Tobacco Use Comment F acility Nov 19, 2023 08:00 AM VA-TOBACCO QUIT 15 YRS OR MORE [facility] Jan 28, 2023 09:45 AM VA-TOBACCO FORMER USER [facility] Jan 28, 2023 09:45 AM VA-TOBACCO QUIT 15 YRS OR MORE [facility] Oct 30, 2021 03:00 PM VA-TOBACCO FORMER USER [facility] Oct 30, 2021 03:00 PM VA-TOBACCO QUIT 5 TO < 15 YRS [facility] Aug 17, 2019 11:38 AM VA-TOBACCO FORMER USER [facility] Aug 17, 2019 11:38 AM VA-TOBACCO QUIT 5 TO < 15 YRS [facility] Jan 06, 2018 02:39 PM FORMER TOBACCO USER 7Y OR GREATE R [facility] Jan 28, 2017 12:47 PM FORMER TOBACCO USER 7Y OR GREATE R [facility] Jan 21, 2016 03:04 PM FORMER TOBACCO USER 7Y OR GREATE R [facility] Apr 02, 2015 02:05 PM FORMER TOBACCO USER 7Y OR GREATE R [facility] March 01, 2014 09:10 AM FORMER TOBACCO USER 7Y OR GREATE R [facility] Sep 18, 2013 09:13 AM CDM COPD TOBACCO NON-USER [facility] May 28, 2013 11:05 AM LIFETIME NON-TOBACCO USER [facility] May 25, 2013 12:08 PM FORMER TOBACCO USER 7Y OR GREATE R [facility] Jun 18, 2009 09:48 AM FORMER TOBACCO USER 7Y OR GREATE R [facility] Aug 24, 2008 10:10 AM FORMER TOBACCO USE >1Y <7Y [facility] Advance Directives: All historical and current Section Date Range: From patient's date of to the date document was created. This section includes ALL of a patient's completed or amended [place] Advance and Rescinded Directives. The entries below indicate that a directive exists for the patient, but an actual copy is not included with this document. The data comes from all [facility]. Date Advance Directives Provider Source March 08, 2023 ADVANCE DIRECTIVE SAMMYLENOÉ Adore URENA [facility] May 02, 2014 ADVANCE DIRECTIVE DISCUSSION QUEENIE SAENZ [facility] May 24, 2013 CLINICAL WARNING SHEYLARGALINDO [facility] Sep 21, 2011 ADVANCE DIRECTIVE JORDAN [...] the Encounter. The data comes from all [place] treatment facilities. Date/Time Radiology Report Provider Source Jan 10, 2025 07:58 AM SHOULDER RIGHT 2-3 VIEWS: KEENA ROSA [id number] -[id number] M Exm Date: JAN 10, 2025@07:58 Req Phys: SHELLI KIM Loc: OR-PACU/01-10-2025@15:42 Img Loc: MAIN X-RAY Service: [place] [address] (Case [id number] COMPLETE) SHOULDER RIGHT 2-3 VIEWS (RAD Detailed) CPT:95334 Proc Modifiers : PORTABLE EXAM, OPERATING ROOM EXAM Reason for Study: right reverse TSA Clinical History: OR 6 shoulder rotator cuff arthropathy My pager number on record is: . I confirm that the pager number/cell phone number above is correct for reporting critical results. My correct contact # for critial results is:Valreio KIM [phone] Trainees only: Enter your staff provider's info here: LAST CREATININE 1.0 (12/18/24) Report Status: Verified Date Reported: JAN 10, 2025 Date Verified: JAN 10, 2025 Gill Box Tender E-Sig:/KYLE/MIRANDA BROOKE MD Report: EXAMINATION: SHOULDER RIGHT 2-3 VIEWS 01/10/2025 7:58 AM INDICATION: right reverse TSA Impression: Right reverse TSA. Components appear well seated. Report Sign Date/Time: 01/10/2025 3:39 PM Primary Interpreting Staff: MIRANDA BROOKE MD, RADIOLOGIST (Gill Box Tender) /RTS MIRANDA BROOKE [facility] Encounter Notes: All associated encounter notes This section contains the clinical notes associated to the Encounter. Date/Time Encounter Note(s) Provider Source Dec 28, 2024 02:23 PM NO SHOW NOTE: LOCAL TITLE: NO SHOW/CANCELLATION CLINIC NOTE STANDARD TITLE: NO SHOW NOTE DATE OF NOTE: DEC 28, 2024@14:23 ENTRY DATE: DEC 28, 2024@14:23:09 AUTHOR: FRANKLIN RUSSELL EXP COSIGNER: URGENCY: STATUS: COMPLETED [place] not seen for scheduled appointment due to: No Show Vet did not show for OT Pre-op appt Appointment Rescheduled: No Please review patient chart and medications for renewal needs (if appropriate). /kyle/ FRANKLIN RUSSELL Occupational Therapist Signed: 12/28/2024 14:23 FRANKLIN RUSSELL [facility]
--- OUTSIDE RECORDS SUMMARY | 2025-01-16 08:07 | XMS_ITS | Encounter Summary ---
Author Name [facility] [place] [facility] [place] [facility] [place] Address [address] [place] [address] Care Team Providers Care News Producer Name Role Phone ZENY MARTIN Primary Care [...] PART A Oct 18, 2013 PART A [id number] [phone] Mary ROSA PATIENT MEDICARE (WNR) MEDICARE (M) PART B Oct 18, 2013 PART B [id number] [phone] Mary ROSA PATIENT MEDICARE (WNR) MEDICARE (M) PART A Oct 18, 2013 PART A [id number] [phone] Mary ROSA PATIENT Selected Encounter This section includes the information on record at [place] for the Encounter. Date/Time Encounter Type Encounter Description Reason Provider Source Sep 25, 2024 02:00 PM OFF/OP EST FEBRUARY X REQ PHY/QHP ENDOCRINOLOGY ICD-10-CM E11.8 Type 2 diabetes mellitus with unspecified complications KRISTEN BARRETO Encounter Template Text not used by [facility] Assessments - Encounter Diagnoses This section includes the primary and secondary diagnoses documented for the Encounter. Date/Time Primary/Secondary Diagnosis Diagnosis Name Provider Source Sep 25, 2024 02:04 PM PRIMARY Type 2 diabetes mellitus with unspecified complications KRISTEN BARRETO [facility] Sep 25, 2024 02:04 PM SECONDARY Morbid (severe) obesity due to excess calories KRISTEN BARRETO [facility] Sep 25, 2024 02:04 PM SECONDARY Type 2 diabetes mellitus with diabetic neuropathy, unsp KRISTEN BARRETO [facility] Plan of Treatment: Future Appointments (+ 6 months) and Future Tests (+/- 45 days) The Plan of Treatment section includes future care activities for the patient [facility] all [place] [facility]. This section includes future appointments and future orders which are active, pending or scheduled. Future Appointments This section includes appointments that were scheduled to occur 6 months from the date of the Encounter, up to a maximum of 20 appointments. The data comes from all [facility]. Appointment Date/Time Appointment Type Appointme nt Facility Name Oct 05, 2024 10:00 AM [place] [place] [facility] Nov 02, 2024 10:00 AM [facility] Nov 02, 2024 11:15 AM [place] [place] [facility] Nov 15, 2024 01:30 PM [place] [place] [facility] Nov 30, 2024 10:00 AM [facility] Dec 07, 2024 08:45 AM [facility] [place] [facility] Dec 14, 2024 10:00 AM [place] [place] [facility] Dec 18, 2024 07:00 AM [facility] [place] [facility] Dec 18, 2024 01:00 PM [place]ORY [place]ONE [place] [facility] Dec 18, 2024 01:15 PM [place] [place] [facility] Dec 18, 2024 01:45 PM [place] [place] [facility] [facility] Dec 18, 2024 02:00 PM [facility] [place] [facility] Dec 18, 2024 02:30 PM [facility] Dec 19, 2024 11:00 AM AM[facility]ULATORY - [facility] Dec 27, 2024 07:00 AM [facility] [place]ONE [place] [facility] Dec 28, 2024 10:00 AM AMBULATORY - MEDICINE [facility] Dec 28, 2024 11:00 AM AMBULATORY - REHAB [facility] Jan 01, 2025 01:30 PM AMBULATORY - REHAB [facility] Jan 24, 2025 01:00 PM AMBULATORY - SURGERY [facility] Jan 25, 2025 10:00 AM AMBULATORY - MEDICINE [facility] Active, Pending, and Scheduled Orders This section includes a listing of several types of active, pending, and scheduled orders, including clinic medications orders, diagnostic test orders, procedure orders and consult orders; where the start date of the order is 45 days before the date of the Encounter or 45 days after the date of theEncounter. The data comes from all [facility] facilities. Test Date/Time Test Type Test Details Facility Name Sep 18, 2024 12:00 AM Laboratory - Blood Bank Order TYPE & SCREEN - LAB BLOOD [facility] Sep 27, 2024 12:00 AM Laboratory - Blood Bank Order TYPE & SCREEN - LAB BLOOD [facility] Lab Results: +/- 30 days of [...] Range Comment Sep 25, 2024 02:00 PM [facility] ALBUMIN/CREATININE RATIO URINE Specimen Type: URINE No comment entered. Ordering Provider: KRISTEN BARRETO Report Released Date/Time: Sep 25, 2024 01:52 PM Reporting Lab: [facility] [address] Performing Lab: [facility] [address] CREATININE,UR RANDOM 46.1 mg/dL L 58.0-161.0 ALB/CREAT RATIO,UR 19.1 mg/g{creat} <29.9 ALBUMIN,UR 8.8 mg/L <29.9 Sep 25, 2024 11:31 AM [facility] HEMOGLOBIN A1C Specimen Type: BLOOD [...] Mar 27, 2024 01:40 PM Reporting Lab: [facility] [address] Performing Lab: [facility] [address] HEMOGLOBIN A1C 7.4 H 4.0-6.0 Sep 25, 2024 11:31 AM [facility] BASIC METABOLIC PANEL+MG Specimen Type: PLASMA No comment entered. Ordering Provider: KRISTEN BARRETO Report Released Date/Time: Mar 27, 2024 01:40 PM Reporting Lab: [facility] [address] Performing Lab: [facility] [address] CREATININE 1.0 mg/dL 0.7-1.2 UREA NITROGEN 22 mg/dL 8-26 GLUCOSE 171 mg/dL H 70-100 SODIUM 140 mmol/L 136-145 POTASSIUM 3.9 mmol/L 3.5-5.1 CHLORIDE 107 mmol/L 98-107 CO2 25 mmol/L 22-29 CALCIUM 9.7 mg/dL 8.4-10.2 MAGNESIUM 2.1 mg/dL 1.6-2.6 ANION GAP 8 mmol/L 5-15 .CREAT EGFR(CKD-EPI) 80 >60 Sep 18, 2024 02:59 PM [facility] PROTHROMBIN TIME/INR Specimen Type: PLASMA No comment entered. Ordering Provider: ADALGISA GARCIA Report Released Date/Time: Sep 18, 2024 02:19 PM Reporting Lab: [facility] [address] Performing Lab: [facility] [address] .INR 0.9 0.8-1.1 .PT 11.1 s 9.4-12.5 Sep 18, 2024 02:59 PM [facility] ALBUMIN Specimen Type: PLASMA No comment entered. Ordering Provider: ADALGISA GARCIA Report Released Date/Time: Sep 18, 2024 02:19 PM Reporting Lab: [facility] [address] Performing Lab: [facility] [address] ALBUMIN 4.7 g/dL 3.5-5.0 Sep 18, 2024 02:59 PM [facility] BASIC METABOLIC PANEL+MG Specimen Type: PLASMA No comment entered. Ordering Provider: ADALGISA GARCIA Report Released Date/Time: Sep 18, 2024 02:19 PM Reporting Lab: [facility] [address] Performing Lab: [facility] [address] CREATININE 1.1 mg/dL 0.7-1.2 UREA NITROGEN 14 mg/dL 8-26 GLUCOSE 139 mg/dL H 70-100 SODIUM 141 mmol/L 136-145 POTASSIUM 3.9 mmol/L 3.5-5.1 CHLORIDE 105 mmol/L 98-107 CO2 28 mmol/L 22-29 CALCIUM 9.8 mg/dL 8.4-10.2 MAGNESIUM 1.9 mg/dL 1.6-2.6 ANION GAP 8 mmol/L 5-15 .CREAT EGFR(CKD-EPI) 72 >60 Sep 18, 2024 02:59 PM [facility] HEMOGLOBIN A1C Specimen Type: [...] Sep 18, 2024 02:19 PM Reporting Lab: [facility] [address] Performing Lab: [facility] [address] HEMOGLOBIN A1C 7.3 H 4.0-6.0 Sep 18, 2024 02:59 PM [facility] CBC & DIFF Specimen Type: BLOOD Comment: Automated Differential Performed Ordering Provider: ADALGISA GARCIA Report Released Date/Time: Sep 18, 2024 02:19 PM Reporting Lab: [facility] [address] Performing Lab: [facility] [address] WBC 8.7 4.0-11.0 RBC 5.40 4.60-6.20 HGB [...] Source Sep 25, 2024 11:52 AM 114/73 [facility] Sep 25, 2024 11:52 AM 97.4 67 157/89 16 95 8 70 192.3 28 [facility] Social History: Smoking Status (Most current) [...] F acility Nov 19, 2023 08:00 AM [place]-TOBACCO QUIT 15 YRS OR MORE [facility] [...] this document. The data comes from all [place] facilities. Date Advance Directives Provider Source March 08, 2023 ADVANCE DIRECTIVE ODILIA CHRISTIANSON [facility] May 02, 2014 ADVANCE DIRECTIVE DISCUSSION QUEENIE SAENZ [facility] May 24, 2013 CLINICAL WARNING GALINDO STUART [facility] Sep 21, 2011 ADVANCE DIRECTIVE JORDAN ZHANG [facility] Encounter Notes: All associated encounter notes This section contains the clinical notes associated to the Encounter. Date/Time Encounter Note(s) Provider Source Sep 25, 2024 01:46 PM INTERNAL MEDICINE OUTPATIENT NOTE: LOCAL TITLE: MEDICINE CLINIC NURSING NOTE STANDARD TITLE: INTERNAL MEDICINE OUTPATIENT NOTE DATE OF NOTE: SEP 25, 2024@13:46 ENTRY DATE: SEP 25, 2024@13:46:58 AUTHOR: AYUSH FUNES EXP COSIGNER: URGENCY: STATUS: COMPLETED TYPE OF VISIT: Appointment Check In Type of appointment: In-person appointment REASON FOR VISIT: metabolic visit ALLERGIES: LISINOPRIL (February 18, 2009) LOSARTAN (February 18, 2009) AMLODIPINE (Jun 18, 2009) DEMEROL HYDROCHLORIDE INJECTION 50 MG/ML (March 04, 2014) GABAPENTIN (Jan 23, 2016) DULOXETINE (Feb 11, 2016) VITAL SIGNS: Blood Pressure: 114/73 (09/25/2024 11:52) Pulse: 67 (09/25/2024 11:52) Respiration: 16 (09/25/2024 11:52) Temperature: 97.4 F [36.3 C] (09/25/2024 11:52) Weight: 192.3 lb [87.23 kg] (09/25/2024 11:52) Height: 70 in [177.8 cm] (09/25/2024 11:52) BMI: 27.6 O2 Sat: 95% (09/25/2024 11:52) Pain: 8 (09/25/2024 11:52) PAIN SCREEN: Patient is not having significant pain that they wish to discuss with their provider today. MEDICATION Over the Counter/Herbal Medications: The patient denies taking any outside medications or herbals. Diabetes/Metabolic Clinic Continuous Glucose Monitor scanned and reports printed for the provider /kyle/ AYUSH FUNES LPN LICENSED PRACTICAL NURSE Signed: 09/25/2024 13:48 AYUSH FUNES [facility] Sep 25, 2024 01:44 PM ENDOCRINOLOGY ATTE NDING NOTE: LOCAL TITLE: METABOLIC CLINIC NOTE STANDARD TITLE: ENDOCRINOLOGY ATTENDING NOTE DATE OF NOTE: SEP 25, 2024@13:44 ENTRY DATE: SEP 25, 2024@13:44:08 AUTHOR: KRISTEN BARRETO EXP COSIGNER: URGENCY: STATUS: [...] which time no changes were made. Today, he reports that he is still taking his Semaglutide once every two weeks. Current Regimen for DM Semaglutide 1 mg weekly Metformin 1500/500 mg daily Empagliflozin 25 mg daily Topiramate 150 mg BID for obesity (one refill in 12 months) - hx of recent stones, but refuses to stop since it has helped his weight so much. Insulin Glargine - off Retinopathy: Exam 09/2024, no retinopathy Neuropathy: Stable, a nurse comes in and checks his feet every other week Nephropathy: Trace proteinuria Cardiac: Hx of HI and ablation Lipids: Rosuvastatin 40mg BP: 114/73 (09/25/2024 11:52) Collection DT Spec HGBA1C 09/25/2024 11:31 BLOOD 7.4 H 09/18/2024 14:59 BLOOD 7.3 H 03/27/2024 13:00 BLOOD 7.1 H Goal 175# Measurement DT WEIGHT LB(KG)[BMI] 09/25/2024 11:52 192.3(87.23)[28*] 09/07/2024 12:05 191.5(86.86)[28*] 07/27/2024 11:27 194(88.00)[28*] 07/13/2024 11:07 192.4(87.27)[28*] 06/08/2024 11:19 189.4(85.91)[27] 05/25/2024 11:19 193.9(87.95)[28*] 05/12/2024 13:19 196.1(88.95)[28*] 05/11/2024 12:04 192(87.09)[28*] 05/04/2024 11:16 194(88.00)[28*] 04/27/2024 11:36 190.9(86.59)[27] 04/13/2024 11:44 190.4(86.36)[27] 04/06/2024 11:16 187.8(85.18)[27] 03/27/2024 13:25 190.7(86.50)[27] 03/02/2024 11:00 187.4(85.00)[27] Past Medical History: Active problems - Computerized Problem List is the source for the followin. Diabetic peripheral neuropathy (SNOMED CT 072797592) 2. Sleep apnea (SNOMED CT 48525352) - iVAPS: R: 18, PS: 7-16, EPAP+14, Mirag Quatt Med 3. Severe chronic obstructive pulmonary disease (SNOMED CT 134365998) 4. Personal History of Tobacco Use - Quit 2003, Smoked x 25 years 5. Inguinial Hernia Repair 6. Benign essential hypertension (SNOMED CT 1703101) 7. Erectile dysfunction (SNOMED CT 837535386) 8. Osteoarthrosis involving the spine 9. Hyperlipidemia (SNOMED CT 14657188) 10. Polyp of colon (SNOMED CT 42567641) 11. Open Angle, Primary 12. Morbid obesity (SNOMED CT 164489002) 13. History of adenomatous polyp of colon - By 2008 colonoscopy 14. Hypothyroidism 15. Mild memory disturbance - Due to multiple medical etiologies; Normal NPT 2014 16. History of repair of umbilical hernia 17. Chronic pain following right total knee arthroplasty (SNOMED CT 052146467453 18. Hip pain 19. Iron deficiency anemia 20. Diabetes mellitus type 2 without retinopathy (SNOMED CT 5761991951385) 21. Hypokalemia 22. Obesity 23. Ventricular bigeminy 24. Acute non-ST segment elevation myocardial infarction 25. PVC - premature ventricular contraction (SNOMED CT 338298619) 26. Coronary arteriosclerosis - s/p FRED x1 [...] STRIP USE 1 STRIP EVERY ACTIVE DAY ASPIRIN 81MG EC TAB TAKE ONE TABLET BY MOUTH EVERY DAY TO ACTIVE PREVENT BLOOD CLOTS BANDAGE TUBULAR ELASTIC SZ E C#[id number] USE 1 BANDAGE ACTIVE TOPICALLY DIRECTED FOR EDEMA BRIMONIDINE 0.2%/BRINZOLAMID 1% OPH SUSP INSTILL ONE DROP ACTIVE (S) IN BOTH EYES TWO TIMES A DAY FOR GLAUCOMA CATH,INTERM COUDE 14FR COLOPLAST #18380 USE 1 CATHETER ACTIVE TOPICALLY DIRECTED CHOLECALCIF 25MCG (D3-1,000UNIT) TAB TAKE ONE TABLET BY ACTIVE MOUTH EVERY DAY DESONIDE 0.05% CREAM APPLY THIN LAYER TOPICALLY TWICE A ACTIVE DAY FOR RASH FOR 2 WEEKS OR UNTIL REDNESS AND ITCHING ARE IMPROVED DICLOFENAC NA 1% TOP GEL APPLY 4 GRAMS TOPICALLY FOUR ACTIVE TIMES A DAY NEEDED TO AFFECTED AREA FOR PAIN TO BILAT WRIST FOR ARTHRITS PAIN DO NOT EXCEED A TOTAL MAX OF 32-GRAMS PER DAY EMPAGLIFLOZIN 25MG TAB TAKE ONE TABLET BY MOUTH EVERY DAY ACTIVE FUROSEMIDE 20MG TAB TAKE ONE TABLET BY MOUTH EVERY DAY ACTIVE ISOSORBIDE MONONITRATE 60MG SA TAB TAKE ONE TABLET BY ACTIVE MOUTH EVERY DAY LATANOPROST 0.005% OPH SOLN INSTILL 1 DROP IN BOTH EYES AT ACTIVE (S) BEDTIME FOR GLAUCOMA REFRIGERATE BOTTLE UNTIL OPENED. LEVOTHYROXINE NA (SYNTHROID) 25MCG TAB TAKE ONE TABLET BY ACTIVE MOUTH EVERY DAY FOR THYROID - TAKE AT LEAST FOUR HOURS AWAY FROM FERROUS GLUCONATE LIDOCAINE 5% OINT APPLY MODERATE AMOUNT TOPICALLY EVERY ACTIVE DAY NEEDED FOR PAIN LORATADINE 10MG TAB TAKE ONE TABLET BY MOUTH EVERY DAY FOR ACTIVE ALLERGIES METFORMIN HCL 1000MG TAB TAKE ONE AND ONE-HALF TABLETS BY ACTIVE MOUTH EVERY MORNING AND TAKE ONE TABLET EVERY EVENING METOPROLOL SUCCINATE 25MG SA TAB TAKE ONE-HALF TABLET BY ACTIVE MOUTH EVERY DAY OMEPRAZOLE 20MG EC CAP TAKE ONE CAPSULE BY MOUTH EVERY DAY ACTIVE FOR HEARTBURN PEG 400 0.4%/PROP GLYCOL 0.3% OPH SOLN INSTILL 1 DROP IN ACTIVE (S) BOTH EYES FOUR TIMES A DAY NEEDED FOR DRY EYES ROSUVASTATIN CA 40MG TAB TAKE ONE TABLET BY MOUTH AT ACTIVE BEDTIME SEMAGLUTIDE 1MG/0.75ML INJ PEN 3ML INJECT 1MG UNDER THE ACTIVE SKIN EVERY WEEK ON WEDNESDAYS TACROLIMUS 0.1% TOP OINT APPLY SMALL AMOUNT TOPICALLY ACTIVE TWICE A DAY FOR DERMATITIS TIOTROPIUM 18MCG INHL CAP 30 INHALE ONE CAPSULE IN INHALER ACTIVE BY INHALATION EVERY DAY FOR BREATHING TOPIRAMATE 50MG TAB TAKE THREE TABLETS BY MOUTH TWICE A ACTIVE DAY TAKE AT NOON AND BEFORE DINNER TO REDUCE CRAVINGS. VANICREAM TOP CREAM APPLY THIN LAYER TOPICALLY EVERY DAY ACTIVE FOR DRY SKIN MEDICATION RECONCILIATION Outpatient At this visit I [...] on participant's copy of the medication list. Vital Signs Temp: 97.4 F [36.3 C] (09/25/2024 11:52) B/P: 114/73 (09/25/2024 11:52) Pulse: 67 (09/25/2024 11:52) Ht: 70 in [177.8 cm] (09/25/2024 11:52) Wt: 192.3 lb [87.23 kg] (09/25/2024 11:52) Pain: 8 (09/25/2024 11:52) BMI: 27.6 Assessment and Plan: #. Diabetes: A1c is 7.4%. Patient has been taking semaglutide every 2 weeks. Recommend going back to weekly dosing which will hopefully improve his blood sugar control and his appetite. #. Hypertension: Blood pressure at goal, no changes. #. Hyperlipidemia: LDL at goal, no changes #. Retinopathy: Eye exam up-to-date without retinopathy #: Neuropathy: Stable #. Follow-up: 4 months to check A1c Greater than 30 minutes was spent during [...] /kyle/ JONE CHRISTENSEN NURSE PRACTITIONER, ENDOCRINE Signed: 09/25/2024 14:05 KRISTEN BARRETO [facility]
--- OUTSIDE RECORDS SUMMARY | 2025-01-16 08:07 | XMS_ITS | Encounter Summary ---
Author Name [facility] [facility] [place] Address [address] [place] [address] Care Team Providers Care Advertising Operations Coordinator Name Role Phone ZENY MARTIN Primary [...] PART A Oct 18, 2013 PART A [id number] [phone] Mary ROSA PATIENT MEDICARE (WNR) MEDICARE (M) PART B Oct 18, 2013 PART B [id number] [phone] Mary ROSA EORODNEY PATIENT MEDICARE (WNR) MEDICARE (M) PART A Oct 18, 2013 PART A [id number] Mary ROSA PATIENT Selected Encounter This section includes the information on record at [place] for the Encounter. Date/Time Encounter Type Encounter Description Reason Provider Source Jan 11, 2025 08:45 AM OT EVAL MOD COMPLEX 45 MIN OCCUPATIONAL THERAPY ICD-10-CM Z73.6 Limitation of activities due to disability JANE LACKEY [facility] Encounter Template Text not used by [place] Assessments - Encounter Diagnoses This section includes the primary and secondary diagnoses documented for the Encounter. Date/Time Primary/Secondary Diagnosis Diagnosis Name Provider Source Jan 11, 2025 02:40 PM PRIMARY Limitation of activities due to disability JANE LACKEY [facility] Plan of Treatment: Future Appointments (+ 6 months) and Future Tests (+/- 45 days) The Plan of Treatment section includes future care activities for the patient from [facility]. This section includes future appointments and future orders which are active, pending or scheduled. Future Appointments This section includes appointments that were scheduled to occur 6 months from the date of the Encounter, up to a maximum of 20 appointments. The data comes from all [facility]. Appointment Date/Time Appointment Type Appointme nt Facility Name Jan 24, 2025 01:00 PM AMBULATORY - SURGERY [facility] Jan 25, 2025 10:00 AM AMBULATORY - MEDICINE [facility] Jan 25, 2025 11:00 AM AMBULATORY - REHAB MEDICIN E [facility] Feb 01, 2025 10:00 AM AMBULATORY - MEDICINE [facility] Feb 01, 2025 11:00 AM AMBULATORY - MEDICINE [facility] Feb 08, 2025 10:00 AM AMBULATORY - MEDICINE [facility] February 22, 2025 10:00 AM AMBULATORY - MEDICINE [facility] February 23, 2025 11:00 AM AMBULATORY - NONE [facility] February 23, 2025 11:30 AM AMBULATORY - SURGERY [facility] March 08, 2025 10:00 AM AMBULATORY - MEDICINE [facility] Apr 09, 2025 01:00 PM AMBULATORY - SURGERY [facility] Active, Pending, and Scheduled [...] theEncounter. The data comes from all [facility]. Test Date/Time Test Type Test Details Facility Name Dec 11, 2024 11:04 AM Consult Order PT PHYSICA L THERAPY OUTPT ORTHO SURGERY Cons [employer] [facility] Jan 10, 2025 12:00 AM Laboratory - Blood Bank Order TYPE & SCREEN - LAB BLOOD WC [facility] Jan 12, 2025 08:18 AM Consult Order [facility] Cons [employer] Choice [facility] Jan 22, 2025 12:00 AM Laboratory - Chemi stry Order HEMOGLOBIN A1C BLOOD SP ONCE [facility] Jan 22, 2025 12:00 AM Laboratory - Chemi stry Order BASIC METABOLIC PANEL+MG PLASMA SP [facility] February 23, 2025 11:00 AM Imaging - General Radiology Order SHOULDER RIGHT 2-3 VIEWS RIGHT [facility] Lab Results: +/- 30 days of [...] Range Comment Jan 11, 2025 12:21 PM [facility] FINGERSTICK GLUCOSE Specimen Type: BLOOD Comment: Save Result Nurse Notified Ordering Provider: ANDREA WOLF Report Released Date/Time: Jan 11, 2025 12:51 PM Reporting Lab: [facility] [phone] Performing Lab: [facility] [phone] FINGERSTICK GLUCOSE 246 mg/dL H 70-100 Jan 11, 2025 07:37 AM [facility] CBC Specimen Type: BLOOD No comment entered. Ordering Provider: ANDREA WOLF Report Released Date/Time: Jan 10, 2025 02:40 PM Reporting Lab: [facility] [phone] Performing Lab: [facility] [phone] WBC 9.7 4.0-11.0 RBC 4.50 L 4.60-6.20 HGB 12.9 g/dL L 13.5-17.9 HCT 42.3 41.0-54.0 MCV 94.0 fL 80.0-100.0 MCH 28.7 pg 27.0-33.0 MCHC 30.5 g/dL L 32.0-37.5 PLT 174 150-400 MPV 11.5 fL 9.1-13.0 RDW 13.3 11.5-14.5 Jan 11, 2025 07:37 AM [facility] BASIC METABOLIC PANEL+MG Specimen Type: PLASMA No comment entered. Ordering Provider: ANDREA WOLF Report Released Date/Time: Jan 10, 2025 02:40 PM Reporting Lab: [facility] [phone] Performing Lab: [facility] [phone] CREATININE 1.0 mg/dL 0.7-1.2 UREA NITROGEN 21 mg/dL 8-26 GLUCOSE 203 mg/dL H 70-100 SODIUM 136 mmol/L 136-145 POTASSIUM 4.1 mmol/L 3.5-5.1 CHLORIDE 102 mmol/L 98-107 CO2 23 mmol/L 22-29 CALCIUM 8.8 mg/dL 8.4-10.2 MAGNESIUM 2.0 mg/dL 1.6-2.6 ANION GAP 11 mmol/L 5-15 .CREAT EGFR(CKD-EPI) 80 >60 Jan 11, 2025 06:10 AM [facility] FINGERSTICK GLUCOSE Specimen Type: BLOOD Comment: Save Result Nurse Notified Ordering Provider: Lilli CHRISTENSEN Report Released Date/Time: Jan 11, 2025 07:41 AM Reporting Lab: [facility] [phone] Performing Lab: [facility] [address] FINGERSTICK GLUCOSE 220 mg/dL H 70-100 Jan 10, 2025 08:11 PM [facility] FINGERSTICK GLUCOSE Specimen Type: BLOOD Comment: Save Result Nurse Notified Ordering Provider: Lilli CHRISTENSEN Report Released Date/Time: Jan 10, 2025 08:36 PM Reporting Lab: [facility] [phone] Performing Lab: [facility] [phone] FINGERSTICK GLUCOSE 239 mg/dL H 70-100 Jan 10, 2025 04:30 PM [facility] FINGERSTICK GLUCOSE Specimen Type: BLOOD Comment: Save Result Nurse Notified Ordering Provider: Lilli CHRISTENSEN Report Released Date/Time: Jan 10, 2025 05:34 PM Reporting Lab: [facility] [phone] Performing Lab: [facility] [phone] FINGERSTICK GLUCOSE 190 mg/dL H 70-100 Jan 10, 2025 02:40 PM [facility] FINGERSTICK GLUCOSE Specimen Type: BLOOD Comment: Save Result Nurse Notified Ordering Provider: BENIGNO KIM A Report Released Date/Time: Jan 10, 2025 03:01 PM Reporting Lab: [facility] [phone] Performing Lab: [facility] [address] FINGERSTICK GLUCOSE 183 mg/dL H 70-100 Jan 10, 2025 08:35 AM [facility] ACT PART THROMBO TIME Specimen Type: PLASMA Comment: ~Draw on admission. Call IV team to draw on admission. Ordering Provider: BENIGNO KIM A Report Released Date/Time: Jan 10, 2025 08:01 AM Reporting Lab: [facility] [phone] Performing Lab: [facility] [address] APTT 31.4 s 25.1-36.5 Jan 10, 2025 08:35 AM [facility] PROTHROMBIN TIME/INR Specimen Type: PLASMA Comment: ~Draw on admission. Call IV team to draw on admission. Ordering Provider: BENIGNO KIM A Report Released Date/Time: Jan 10, 2025 08:01 AM Reporting Lab: [facility] [phone] Performing Lab: [facility] [phone] .INR 0.9 0.8-1.1 .PT 10.9 s 9.4-12.5 Jan 10, 2025 08:35 AM [facility] CBC Specimen Type: BLOOD No comment entered. Ordering Provider: BENIGNO KIM Report Released Date/Time: Jan 10, 2025 08:01 AM Reporting Lab: [facility] [phone] Performing Lab: [facility] [phone] WBC 6.6 4.0-11.0 RBC 5.00 4.60-6.20 HGB 14.5 g/dL 13.5-17.9 HCT 46.1 41.0-54.0 MCV 92.2 fL 80.0-100.0 MCH 29.0 pg 27.0-33.0 MCHC 31.5 g/dL L 32.0-37.5 PLT 172 150-400 MPV 10.9 fL 9.1-13.0 RDW 13.7 11.5-14.5 Jan 10, 2025 08:35 AM [facility] FINGERSTICK GLUCOSE Specimen Type: BLOOD Comment: Save Result Ordering Provider: BENIGNO KIM A Report Released Date/Time: Jan 10, 2025 10:31 AM Reporting Lab: [facility] [phone] Performing Lab: [facility] [address] FINGERSTICK GLUCOSE 155 mg/dL H 70-100 Jan 10, 2025 08:35 AM [facility] BASIC METABOLIC PANEL+MG Specimen Type: PLASMA No comment entered. Ordering Provider: BENIGNO KIM A Report Released Date/Time: Jan 10, 2025 08:01 AM Reporting Lab: [facility] [phone] Performing Lab: [facility] [phone] CREATININE 0.9 mg/dL 0.7-1.2 UREA NITROGEN 19 mg/dL 8-26 GLUCOSE 151 mg/dL H 70-100 SODIUM 138 mmol/L 136-145 POTASSIUM 3.9 mmol/L 3.5-5.1 CHLORIDE 106 mmol/L 98-107 CO2 23 mmol/L 22-29 CALCIUM 9.3 mg/dL 8.4-10.2 MAGNESIUM 2.0 mg/dL 1.6-2.6 ANION GAP 9 mmol/L 5-15 .CREAT EGFR(CKD-EPI) >90 >60 Dec 18, 2024 12:16 PM [facility] HEMOGLOBIN A1C Specimen Type: BLOOD Comment: [...] Sep 27, 2024 10:57 AM Reporting Lab: [facility] [phone] Performing Lab: [facility] [phone] HEMOGLOBIN A1C 7.1 H 4.0-6.0 Dec 18, 2024 12:16 PM [facility] ALBUMIN Specimen Type: PLASMA No comment entered. Ordering Provider: BENIGNO KIM A Report Released Date/Time: Sep 27, 2024 10:57 AM Reporting Lab: [facility] [phone] Performing Lab: [facility] [address] ALBUMIN 4.4 g/dL 3.5-5.0 Dec 18, 2024 12:16 PM [facility] PROTHROMBIN TIME/INR Specimen Type: PLASMA No comment entered. Ordering Provider: BENIGNO KIM A Report Released Date/Time: Sep 27, 2024 10:57 AM Reporting Lab: [facility] [phone] Performing Lab: [facility] [address] .INR 0.9 0.8-1.1 .PT 10.3 s 9.4-12.5 Dec 18, 2024 12:16 PM [facility] BASIC METABOLIC PANEL+MG Specimen Type: PLASMA No comment entered. Ordering Provider: BENIGNO KIM A Report Released Date/Time: Sep 27, 2024 10:57 AM Reporting Lab: [facility] [address] Performing Lab: [facility] [address] CREATININE 1.0 mg/dL 0.7-1.2 UREA NITROGEN 19 mg/dL 8-26 GLUCOSE 118 mg/dL H 70-100 SODIUM 139 mmol/L 136-145 POTASSIUM 4.1 mmol/L 3.5-5.1 CHLORIDE 104 mmol/L 98-107 CO2 25 mmol/L 22-29 CALCIUM 9.6 mg/dL 8.4-10.2 MAGNESIUM 2.1 mg/dL 1.6-2.6 ANION GAP 10 mmol/L 5-15 .CREAT EGFR(CKD-EPI) 80 >60 Dec 18, 2024 12:16 PM [facility] CBC & DIFF Specimen Type: BLOOD Comment: Automated Differential Performed Ordering Provider: BENIGNO KIM A Report Released Date/Time: Sep 27, 2024 10:57 AM Reporting Lab: [facility] [phone] Performing Lab: [facility] [phone] WBC 9.5 4.0-11.0 RBC 5.05 4.60-6.20 HGB [...] Source Jan 11, 2025 09:30 AM 5 [facility] Jan 11, 2025 08:35 AM 8 [facility] Jan 11, 2025 08:31 AM 97.5 50 122/69 16 100 8 [facility] Jan 11, 2025 04:27 AM 6 [facility] Jan 11, 2025 12:28 AM 9 [facility] Social History: Smoking Status (Most current) and Tobacco Use (All prior to encounter date) This section includes the most current, and the historical, smoking and tobacco- related health factors from the [facility] where the Encounter took place. Current Smoking Status This section includes the most current smoking, or tobacco-related health factor, from the [place] facility where the Encounter took place. Date/Time Current Smoking Status Comment Serina reece Nov 19, 2023 08:00 AM VA-TOBACCO QUIT 15 YRS OR MORE [facility] Tobacco Use History This section includes a history of the smoking, or tobacco-related health factors, that were collected on or before the date of the Encounter. The data comes from the [place] facility where the Encounter took place. Date/Time Smoking Status/Tobacco Use Comment F [facility]flower Nov 19, 2023 08:00 AM VA-TOBACCO QUIT 15 YRS OR MORE [facility] Jan 28, 2023 09:45 AM VA-TOBACCO FORMER USER [facility] Jan 28, 2023 09:45 AM VA-TOBACCO QUIT 15 YRS OR MORE [facility] Oct 30, 2021 03:00 PM VA-TOBACCO FORMER USER [facility] Oct 30, 2021 03:00 PM VA-TOBACCO QUIT 5 TO < 15 YRS [facility] Aug 17, 2019 11:38 AM VA-TOBACCO FORMER USER [facility] Aug 17, 2019 11:38 AM VA-TOBACCO QUIT 5 TO < 15 YRS [facility] Jan 06, 2018 02:39 PM FORMER TOBACCO USER 7Y OR GREATE R [facility] Jan 28, 2017 12:47 PM FORMER TOBACCO USER 7Y OR GREATE R [facility] Jan 21, 2016 03:04 PM FORMER TOBACCO USER 7Y OR GREATE R [facility] Apr 02, 2015 02:05 PM FORMER TOBACCO USER 7Y OR GREATE R [facility] March 01, 2014 09:10 AM FORMER TOBACCO USER 7Y OR GREATE R [facility] Sep 18, 2013 09:13 AM CDM COPD TOBACCO NON-USER [facility] May 28, 2013 11:05 AM LIFETIME NON-TOBACCO USER [facility] May 25, 2013 12:08 PM FORMER TOBACCO USER 7Y OR GREATE R [facility] Jun 18, 2009 09:48 AM FORMER TOBACCO USER 7Y OR GREATE R [facility] Aug 24, 2008 10:10 AM FORMER TOBACCO USE >1Y <7Y [facility] Advance Directives: All historical and current [...] 02, 2014 ADVANCE DIRECTIVE DISCUSSION QUEENIE SAENZ [facility] May 24, 2013 CLINICAL WARNING SHEYLARGALINDO [facility] Sep 21, 2011 ADVANCE DIRECTIVE JORDAN ZHANG [facility] Radiology Reports: +/- 30 days of the [...] AM SHOULDER RIGHT 2-3 VIEWS: KEENA ROSA [id number] -[id number] M Exm Date: JAN 10, 2025@07:58 Req Phys: SHELLI KIM Loc: OR-PACU/01-10-2025@15:42 Img Loc: MAIN X-RAY Service: [place] [address] (Case [id number] COMPLETE) SHOULDER RIGHT 2-3 VIEWS (RAD Detailed) CPT:05378 Proc Modifiers : PORTABLE EXAM, OPERATING ROOM EXAM Reason for Study: right reverse TSA Clinical History: OR 6 shoulder rotator cuff arthropathy My pager number on record is: . I confirm that the pager number/cell phone number above is correct for reporting critical results. My correct contact # for critial results is:Valerio KIM [phone] Trainees only: Enter your staff provider's info here: LAST CREATININE 1.0 (12/18/24) Report Status: Verified Date Reported: JAN 10, 2025 Date Verified: JAN 10, 2025 Ware [employer] E-Sig:/ES/MIRANDA BROOKE MD Report: EXAMINATION: SHOULDER RIGHT 2-3 VIEWS 01/10/2025 7:58 AM INDICATION: right reverse TSA Impression: Right reverse TSA. Components appear well seated. Report Sign Date/Time: 01/10/2025 3:39 PM Primary Interpreting Staff: MIRANDA BROOKE MD, RADIOLOGIST (Ware Server) /MIRANDA PAULSON [facility] Encounter Notes: All associated encounter notes This section contains the clinical notes associated to the Encounter. Date/Time Encounter Note(s) Provider Source Jan 11, 2025 08:45 AM OCCUPATIONAL THERAPY CONSULT: LOCAL TITLE: OCCUPATIONAL THERAPY CONSULT STANDARD TITLE: OCCUPATIONAL THERAPY CONSULT DATE OF NOTE: JAN 11, 2025@08:45 ENTRY DATE: JAN 11, 2025@12:15:41 AUTHOR: JANE LACKEY EXP COSIGNER: URGENCY: STATUS: COMPLETED OCCUPATIONAL THERAPY EVALUATION NOTE Referring provider: ANDREA WOLF Diagnosis for which patient is referred to OT: R reverse TSA Consult request: Assess and treat Precautions: NWB, no active shoulder ROM, immobilizer sling Dates of service: [facility] 01/11/25 Patient seen for 40 minutes OT Evaluation 15 minutes Low Complexity 25 Minutes: Self care/ADLs ASSESSMENT: Tevin is a 69 year old right handed male referred to OT for evaluation and treatment s/p R reverse TSA. Saleem has a PMHx significant for: DM2, mild memory disturbance, and sleep apnea. At baseline, saleem reports he lives with his sister and is independent with ambulation and toileting but has assist with dressing and showering from homecare. Tevin is currently limited by mild pain and immobilization of his dominant R UE. Kelly demonstrated ability to ambulate and manage toileting without assistance. Tevin also demonstrated ability to don/doff his CPAP mask using only his left hand with use of mirror at bedside. Tevin reports he has a mirror that will work at home and family can help set it up for him. Tevin has good potential to benefit from ongoing OT to address stated limitations negatively impacting performance and safety of I/ADLs. Recommend discharge home with support from family + home OT to follow up on management of his CPAP mask in his own environment. DISCHARGE RECOMMENDATION: Home with support from family +Home OT to follow up on management of his CPAP mask in his own environment. IDENTIFIED ADAPTIVE EQUIPMENT NEEDS: No new needs identified PLAN: Goal to evaluate tevin for occupational performance was met. No further OT needs are identified at this time, saleem is discharged from in OT services. SHORT TERM GOALS: 1. Saleem will complete full toileting task, including transfers, hygiene, and clothing management with modified independence. MET at [facility] 2. Saleem will demonstrate ability to don/doff his own CPAP mask using only his L UE and adaptive equipment as needed. MET with use of mirror during eval (Vet reports he has mirror at home he can use) PENITENTIARY GOALS TO BE MET BY Discharge: Kelly will maximize independence and safety with ADL/IADLs in order to return to least restrictive living environment. PATIENT EDUCATION ON TREATMENT PLAN: Patient indicates readiness to learn, verbalizes understanding, agreement and satisfaction with the treatment plan. Denies further questions. CURRENT MEDICAL HISTORY: Diabetic peripheral neuropathy (SCT 4247Sleep apnea (SCT 66798485) Severe chronic obstructive pulmonary disPersonal History of Tobacco Use (ICD-9- CM V15.82) Inguinal Hernia Repair (ICD-9-CM 799.9)Benign essential hypertension ([facility] 5677477) Erectile dysfunction ([facility] [id number]) Osteoarthrosis involving the spine (ICD-9-CM 715.98) Hyperlipidemia (SCT 87490115) Polyp of colon (SCT 49985077) Open Angle, Primary (ICD-9-CM 365.11) Morbid obesity ([facility] 416361530) History of adenomatous polyp of colon (SHypothyroidism (SCT 94011377) Mild memory disturbance (SCT 983795526) History of repair of umbilical hernia (SCT 412858292) Chronic pain following right total knee Hip pain ([facility] 64694127) Iron deficiency anemia ([facility] 26487146) Diabetes mellitus type 2 without retinopathy ([facility] [id number]) Hypokalemia ([facility] 60535357) Obesity (SCT 178094422) Ventricular bigeminy ([facility] 51635680) Acute non-ST segment elevation myocardial infarction (SCT 517825141) PVC - premature ventricular contraction Coronary arteriosclerosis (SCT 48375108) History of radiofrequency ablation operaExposure to potentially hazardous substance ([facility] [id number]) Exposure to potentially hazardous substa SUBJECTIVE: I am worried about putting on my CPAP mask when I get home. PAIN: Mild-Moderate pain, not rated CONTEXT Lives with: Sister (has low vision per ) Level of caregiver support available: Has homecare 3 days a week that assists with showering, dressing, meds, cleaning, and laundry. Vet reports he always has help with his left knee brace. Equipment owned: [employer] Load Dispatcher Home environment: Style: 2 story home c/ his sister(legally blind) Stairs: 2-3 to enter c/ no HR has PROS consult for vendor to install ramp placed 01/01 & sent to vendor 01/04 Home accessibility: - bedroom/bathroom on main level, with hospital bed - tub shower c/ GB & HHSH and floor to ceiling pole - has shower chair, prefers to stand, tub bench doesn't fit - tall height toilet c/ bidet & 1 GB on R side(toilet frame does not work with bidet - Laundry in lower level: stair glide down OBJECTIVE: FUNCTION IN AREAS OF OCCUPATION: Activities of Daily Living (ADLs) NT=Not tested -Hygiene and grooming: Independent using L hand standing at sink -Feeding: -Toilet transfer: Mod I -Toileting: Mod I -UE Dressing: Min A - reports he will have assist at home -Lower Extremity Dressing: NT, vet reports having assist at baseline -Sit <> stand: Independent -Bed mobility: Supervision -Functional Mobility: SBA to/from bathroom without device Self-care/ADLs: OT provided education on sling management and how to complete ADLs one handed. OT also did activity analysis and made recommendations for donning his own CPAP mask which he was able to demonstrate by end of session. Kelly will need a mirror on his bedside table at home which he said he can have family help him set up. OT modified the end of his left strap with tape to make it easier for him to adjust. Kelly was able to verbalize all steps of process at end of session. Recommend community home OT to follow up regarding independence at home in his own environment. verbalizes confidence with discharging home and expresses no additional concerns. VITALS: 113/60 up in chair at end of session COGNITION: - Attention span: Attended to full session without difficulty - Commands: Able to follow 1-2 step commands - Communication: Able to make needs known - Safety Awareness: Appears intact, pt demonstrates insight to current limitations - Memory: Not formally assessed. Kelly endorses mild baseline deficit. Kelly demonstrated new learning during session today. EMOTIONAL/BEHAVIORAL: Calm/pleasant, Cooperative UPPER EXTREMITY FUNCTION Right Upper Extremity: Unable to assess d/t surgical procedure Left Upper Extremity: Within Functional Limits for ADLs Hand dominance: Right left with call light and all needs within his reach at end of session. OCCUPATIONAL THERAPY EVALUATION COMPLEXITY Identifying and reporting the complexity level of an evaluation focuses on the first three of these factors--profile and history, assessment and determination of deficits, and clinical decision making. These three factors must be scored and defensible documentation written to support the choice of a level. (Information taken from: https://www.[employer]ota.org) PROFILE AND HISTORY (including chart view) Expanded review of medical and/or therapy records and additional review of physical, cognitive, or psychosocial history related to current functional performance (moderate complexity) ASSESSMENT & PERFORMANCE DEFICITS (select all that apply): Physical & Cognition 3-5 performance deficits (Moderate complexity) LEVEL OF CLINICAL DECISION MAKING Detailed assessment(s), consideration of several treatment options, may present with comorbidities and minimal to moderate modifications of tasks or assistance.(Moderate complexity) MODERATE COMPLEXITY Expanded review of medical/or therapy records and additional review of physical, cognitive, or psychosocial history related to current functional performance. An assessment(s) that identifies 3-5 performance deficits that result in activity limitation and/or participating restrictions. Analysis of the occupational profile, analysis of date from detailed assessment (s), and consideration of several treatment options. Patient may present with comorbidities that affect occupational performance. Minimal to moderate modifications of tasks or assistance with assessment(s) is necessary to enable completion of evaluation component. /es/ JANE LACKEY OCCUPATIONAL THERAPIST Signed: 01/11/2025 14:41 JANE LACKEY [facility]
--- OUTSIDE RECORDS SUMMARY | 2025-01-16 08:07 | XMS_ITS | Encounter Summary ---
Author Name [facility] [place] [facility] [place] Address [address] [place] [address] Care Team Providers Care Choir Teacher Name Role Phone ZENY MARTIN Primary Care [...] PART A Oct 18, 2013 PART A [id number] [phone] Mary ROSA PATIENT MEDICARE (WNR) MEDICARE (M) PART B Oct 18, 2013 PART B [id number] [phone] Mary ROSA PATIENT MEDICARE (WNR) MEDICARE (M) PART A Oct 18, 2013 PART A [id number] Mary ROSA PATIENT Selected Encounter This section includes the information on record at [place] for the Encounter. Date/Time Encounter Type Encounter Description Reason Provider Source Aug 14, 2024 01:00 PM OFFICE O/P EST LOW 20 MIN PODIATRY ICD-10-CM E11.40 Type 2 diabetes mellitus with diabetic neuropathy, CHONG Velasquez Encounter Template Text not used by [place] Assessments - Encounter Diagnoses This section includes the primary and secondary diagnoses documented for the Encounter. Date/Time Primary/Secondary Diagnosis Diagnosis Name Provider Source Aug 14, 2024 01:11 PM PRIMARY Type 2 diabetes mellitus with diabetic neuropathy, unsp ANDREWDIONI ADEBAYO [facility] Aug 14, 2024 01:11 PM SECONDARY Venous insufficiency (chronic) (peripheral) ANDREWDIONI ADEBAYO [facility] Plan of Treatment: Future Appointments (+ 6 months) and Future Tests (+/- 45 days) The Plan of Treatment section includes future care activities for the patient from all [place] [facility] This section includes future appointments and future orders which are active, pending or scheduled. Future Appointments This section includes appointments that were scheduled to occur 6 months from the date of the Encounter, up to a maximum of 20 appointments. The data comes from all [place] treatment facilities. Appointment Date/Time Appointment Type Appointme nt Facility Name Aug 18, 2024 02:00 PM [place] [facility] Sep 07, 2024 10:00 AM [place] [facility] Sep 18, 2024 02:00 PM [facility] [place] [facility] [facility] [facility] Sep 19, 2024 10:30 AM [facility] Sep 22, 2024 02:40 PM [facility] Sep 22, 2024 03:00 PM [facility] [place] [facility] [facility] Sep 25, 2024 11:15 AM [facility] Sep 25, 2024 12:15 PM [place] [place] [facility] Sep 25, 2024 01:00 PM [place] [facility] Sep 25, 2024 02:00 PM [place] [facility] Sep 25, 2024 02:15 PM [place] [facility] Oct 05, 2024 10:00 AM [place] [place] [facility] Nov 02, 2024 10:00 AM [place] [facility] Nov 02, 2024 11:15 AM [place] [facility] Nov 15, 2024 01:30 PM [place] [facility] Nov 30, 2024 10:00 AM [place] [place] [facility] Dec 07, 2024 08:45 AM [facility] [facility] Dec 14, 2024 10:00 AM AMBULATORY - MEDICINE [facility] Dec 18, 2024 07:00 AM [facility] Dec 18, 2024 01:00 PM [facility] Active, Pending, and Scheduled Orders This section includes a listing of several types of active, pending, and scheduled orders, including clinic medications orders, diagnostic test orders, procedure orders and consult orders; where the start date of the order is 45 days before the date of the Encounter or 45 days after the date of theEncounter. The data comes from all [place] treatment facilities. Test Date/Time Test Type Test Details Facility Name Sep 18, 2024 12:00 AM Laboratory - Blood Bank Order TYPE & SCREEN - LAB BLOOD [facility] Sep 27, 2024 12:00 AM Laboratory - Blood Bank Order TYPE & SCREEN - LAB BLOOD [facility] Social History: Smoking Status (Most current) and Tobacco Use (All prior to encounter date) This section includes the most current, and the historical, smoking and tobacco- related health factors from the [place] facility where the Encounter took place. Current Smoking Status This section includes the most current smoking, or tobacco-related health factor, from the [place] facility where the Encounter took place. Date/Time Current Smoking Status Comment Facil ity Nov 19, 2023 08:00 AM [place]-TOBACCO QUIT 15 YRS OR MORE [facility] Tobacco Use History This section includes a history of the smoking, or tobacco-related health factors, that were collected on or before the date of the Encounter. The data comes from the [place] facility where the Encounter took place. Date/Time [...] ALL of a patient's completed or amended [place] Advance and Rescinded Directives. The entries below indicate that a directive exists for the patient, but an actual copy is not included with this document. The data comes from all [facility]. Date Advance Directives Provider Source March 08, 2023 ADVANCE DIRECTIVE [facility] May 02, 2014 ADVANCE DIRECTIVE DISCUSSION QUEENIE SAENZ [facility] May 24, 2013 CLINICAL WARNING SHEYLARGALINDO [facility] Sep 21, 2011 ADVANCE DIRECTIVE JORDAN ZHANG [facility] Radiology Reports: +/- 30 [...] the Encounter. The data comes from all [place] treatment facilities. Date/Time Radiology Report Provider Source Aug 18, 2024 01:[address] UPPER EXTREMITY (P): KEENA ROSA [id number] -1955 M Exm Date: AUG 18, 2024@13:12 Req Phys: NIETZ,INES D Pat Loc: [facility] (Req' Img Loc: CT IMAGING Service: [place] [address] (Case [id number] COMPLETE) CT UPPER EXTREMITY W/O CONT (CT Detailed) CPT:99802 Reason for Study: right shoulder pain Clinical History: right shoulder pain, evaluate RC, in plane of scapula for preop RTSA planning Report Status: Verified Date Reported: AUG 18, 2024 Date Verified: AUG 18, 2024 Senior Care Manager E-Sig:/ES/MIRANDA BROOKE MD Report: EXAMINATION: CT UPPER EXTREMITY/RIGHT SHOULDER W/O CONT 08/18/2024 1:12 PM INDICATION: 69-year-old male. Right shoulder pain. Evaluate rotator cuff. Preoperative RTSA planning. TECHNIQUE: Thin section axial imaging without IV contrast. Sagittal and coronal reconstructions. COMPARISON: Plain Films Right Shoulder 05/12/2024. Total DLP: 151.41 mGycm FINDINGS: Rotator cuff region: No evidence of full-thickness rotator cuff tear. No significant rotator cuff muscle atrophy however there is some fatty infiltration within the teres minor muscle. Small tendinous calcification within the distal supraspinatus cuff tendon. Acromioclavicular region: No significant degenerative hypertrophy of the AC joint. No os acromiale. No significant acromial downsloping. No significant fluid identified within the subacromial subdeltoid bursa. Glenohumeral region: There appears to be some irregularity of the glenoid labrum. Proximal bicipital tendon is not well seen consistent with tear or significant tendinopathy. Inferior capsule is intact. Moderate/advanced degenerative changes and narrowing of the glenohumeral joint. Bony spurring along the glenohumeral joint line margins. Associated subchondral sclerotic changes. Bones and soft tissues: No significant shoulder joint effusion. No acute bone or muscular injuries identified. Bone marrow pattern within normal limits. No soft tissue mass or bone lesions identified. Impression: 1. Moderate/advanced degenerative changes and narrowing of the glenohumeral joint with bony spurring along the glenohumeral joint line margins associated subchondral sclerotic changes. 2. No evidence of full-thickness rotator cuff tear and no significant rotator cuff muscle atrophy, however there is some fatty infiltration within the teres minor muscle. Small focus of tendinous calcification within the distal supraspinatus. 3. Proximal bicipital tendon is not well seen consistent with tear or significant tendinopathy. Primary Interpreting Staff: MIRANDA BROOKE MD, RADIOLOGIST (Senior Care Manager) /RTS MIRANDA BROOKE [facility] Encounter Notes: All associated encounter notes This section contains the clinical notes associated to the Encounter. Date/Time Encounter Note(s) Provider Source Aug 14, 2024 12:58 PM PODIATRY ATTENDING NOTE: LOCAL TITLE: PODIATRY CLINIC NOTE STANDARD TITLE: PODIATRY ATTENDING NOTE DATE OF NOTE: AUG 14, 2024@12:58 ENTRY DATE: AUG 14, 2024@12:58:19 AUTHOR: CHONG MORALES EXP COSIGNER: URGENCY: STATUS: COMPLETED Subjective: 69 year old male presents to clinic for diabetic foot examination. No new issues or concerns today per patient. Overall, feeling well. Denies N/V/F/C/SOB/CP. Last documented Hgb A1c 7.1% on 03/27/24. Problems: Diabetic peripheral neuropathy (SCT 4247Sleep apnea (SCT 11369928) Severe chronic obstructive pulmonary disPersonal History of Tobacco Use (ICD-9- CM V15.82) Inguinial Hernia Repair (ICD-9-CM 799.9)Benign essential hypertension (SCT 0114918) Erectile dysfunction (SCT 787992077) Osteoarthrosis involving the spine (ICD- 9-CM 715.98) Hyperlipidemia (SCT 23147778) Polyp of colon (SCT 67799922) Open Angle, Primary (ICD-9-CM 365.11) Morbid obesity (SCT 673248258) History of adenomatous polyp of colon (SHypothyroidism (SCT 97893081) Mild memory disturbance (SCT 403048313) History of repair of umbilical hernia (SCT 208698195) Chronic pain following right total knee Hip pain (SCT 72547047) Iron deficiency anemia (SCT 85077899) Diabetes mellitus type 2 without retinopathy (SCT 7214400977816) Hypokalemia (SCT 57681062) Obesity (SCT 631288516) Ventricular bigeminy (SCT 70691762) Acute non-ST segment elevation myocardial infarction (SCT 913179416) PVC - premature ventricular contraction Coronary arteriosclerosis (SCT 16963300) History of radiofrequency ablation operaExposure to potentially hazardous substance ([facility] [id number]) Allergies: FACILITY ALLERGY/ADR -------- [facility] AMLODIPINE [facility] DEMEROL HYDROCHLORIDE INJECTION 50 MG/ML [facility] DULOXETINE [facility] GABAPENTIN [facility] LISINOPRIL [facility] AMLODIPINE [facility] LISINOPRIL Medications: Active Outpatient Medications (including Supplies): Active Outpatient Medications Status 1) ACCU-CHEK GUIDE (GLUCOSE) TEST STRIP USE 1 STRIP ACTIVE EVERY DAY 2) ACETAMINOPHEN 500MG TAB TAKE TWO TABLETS BY MOUTH ACTIVE THREE TIMES A DAY NEEDED FOR PAIN FOR PAIN. NO MORE THAN 3000MG PER DAY. CONSIDER CHANGE TO NEEDED DOSING ONCE OFF OF OTHER POST-OPERATIVE PAIN MEDICATIONS. 3) BRIMONIDINE 0.2%/BRINZOLAMID 1% OPH SUSP INSTILL ONE ACTIVE DROP IN BOTH EYES TWO TIMES A DAY FOR GLAUCOMA 4) CHOLECALCIF 25MCG (D3-1,000UNIT) TAB TAKE ONE TABLET ACTIVE BY MOUTH EVERY DAY 5) DICLOFENAC NA 1% TOP GEL APPLY 4 GRAMS TOPICALLY ACTIVE TWICE A DAY NEEDED TO AFFECTED AREA FOR PAIN FOR CHEST PAINUSE DOSE CARD IN BOX TO MEASURE DOSEMAX 32 GM PER DAY 6) DOXEPIN HCL 5% TOP CREAM APPLY [...] TABLET BY MOUTH EVERY ACTIVE DAY 10) INSULIN,GLARGINE 100 UNT/ML 3ML SOLOSTAR INJECT 50 ACTIVE UNITS UNDER THE SKIN EVERY DAY FOR DIABETES 11) ISOSORBIDE MONONITRATE 60MG SA TAB TAKE ONE TABLET BY ACTIVE (S) MOUTH EVERY DAY 12) KETOCONAZOLE 2% CREAM APPLY THIN LAYER TOPICALLY ACTIVE TWICE A DAY EXTERNAL USE ONLY FOR FACIAL RASH 13) LATANOPROST 0.005% OPH SOLN INSTILL 1 DROP IN BOTH ACTIVE EYES EVERY MORNING FOR GLAUCOMA REFRIGERATE BOTTLE UNTIL OPENED. 14) [...] TABLET ACTIVE BY MOUTH EVERY DAY 19) MULTIVITAMIN CAP/TAB TAKE 1 TABLET BY MOUTH EVERY DAY ACTIVE 20) NITROGLYCERIN 0.4MG SL TAB DISSOLVE ONE TABLET UNDER ACTIVE THE TONGUE EVERY 5 MINUTES FOR UP TO 3 DOSES IF NEEDED FOR CHEST PAIN 21) OMEPRAZOLE 20MG EC CAP TAKE ONE CAPSULE BY MOUTH ACTIVE EVERY DAY FOR HEARTBURN 22) ROSUVASTATIN CA 40MG TAB TAKE ONE TABLET BY MOUTH AT ACTIVE BEDTIME 23) SEMAGLUTIDE 1MG/0.75ML INJ PEN 3ML INJECT 1MG UNDER ACTIVE THE SKIN EVERY WEEK ON WEDNESDAYS 24) TOPIRAMATE 50MG TAB TAKE THREE TABLETS BY MOUTH TWICE ACTIVE A DAY TAKE AT NOON AND BEFORE DINNER TO REDUCE CRAVINGS. 25) VANICREAM TOP CREAM APPLY THIN LAYER TOPICALLY EVERY ACTIVE DAY NEEDED TO FEET AND LEGS FOR DRY SKIN. 10 Point ROS negative unless noted in the HPI. Objective: Patient is AOx3. NAD. Pleasant and cooperative. Vascular: Pedal pulses palpable 2/4 at the DP and PT locations bilateral. Capillary refill time is less than 5 seconds. Diffuse edema with varicosities noted. Hair growth negative. Neurologic: Light touch and gross sensation intact. 4/10 sites intact as tested with SWMF b/l. Dermatologic: Skin is of normal texture and turgor. Temperature is warm to cool from proximal to distal. No open lesions or sores, webspaces are clean and dry. Toenails are intact. Nails WNL of length and thickness. Skin tag to the plantar aspect of the right 5th digit. Musculoskeletal: No gross deformity noted. Arch height and contour normal. Muscle strength 5/5 for all groups tested. Mild hammer toe contractures noted. Assessment: DM II with peripheral neuropathy Venous insuffiency Plan: -Patient examined and evaluated. Discussed findings with patient. -Good tenants of diabetic foot care were reminded to patient. -Consult for sensifoot stockings. -Discussed removal of skin tag, no pain or discomfort. Continue to monitor. -Patient to RTC in 1 year for annual visit. /kyle/ CHONG MORALES DPM SHAPING MACHINE OPERATOR Signed: 08/14/2024 13:12 CHONG MORALES [facility]
--- OUTSIDE RECORDS SUMMARY | 2025-01-16 08:07 | XMS_ITS | Encounter Summary ---
Author Name [facility] [place] Address [address] [place] [address] Care Team Providers Care Ruling Machine Feeder Name Role Phone ZENY MARTIN Primary Care [...] PART A Oct 18, 2013 PART A [id number] [phone] Mary ROSA PATIENT MEDICARE (WNR) MEDICARE ([place]) PART B Oct 18, 2013 PART B [id number] Mary ROSA EORODNEY PATIENT MEDICARE (WNR) MEDICARE ([place]) PART A Oct 18, 2013 PART A [id number] Mary ROSA PATIENT Selected Encounter This section includes the information on [place] at [place] for the Encounter. Date/Time Encounter Type Encounter Description Reason Provider Source Aug 02, 2024 03:00 PM OFFICE O/P EST LOW 20 MIN ORTHO/JOINT SURG ICD-10-CM M75.101 Unsp rotatr-cuff tear/ruptr of right shoulder, not trauma INES AZEVEDO [facility] Encounter Template Text not used by [place] Assessments - Encounter Diagnoses This section includes the primary and secondary diagnoses documented for the Encounter. Date/Time Primary/Secondary Diagnosis Diagnosis Name Provider Source Aug 02, 2024 04:07 PM PRIMARY Unsp rotatr-cuff tear/ruptr of right shoulder, not trauma INES AZEVEDO [facility] Plan of Treatment: Future Appointments (+ 6 months) and Future Tests (+/- 45 days) The Plan of Treatment section includes future care activities for the patient from all [place] treatmentfacilities. This section includes future appointments and future orders which are active, pending or scheduled. Future Appointments This section includes appointments that were scheduled to occur 6 months from the date of the Encounter, up to a maximum of 20 appointments. The data comes from all [place] treatment facilities. Appointment Date/Time Appointment Type Appointme nt Facility Name Aug 14, 2024 01:00 PM [facility] [place] [facility] Aug 18, 2024 02:00 PM [facility] Sep 07, 2024 10:00 AM [facility] Sep 18, 2024 02:00 PM [facility]UL[facility] - SURGERY [facility] Sep 19, 2024 10:30 AM AMBULATORY - SURGERY [facility] Sep 22, 2024 02:40 PM AMBULATORY - SURGERY [facility] Sep 22, 2024 03:00 PM AMBULATORY - SURGERY [facility] Sep 25, 2024 11:15 AM AMBULATORY - SURGERY [facility] Sep 25, 2024 12:15 PM [facility] Sep 25, 2024 01:00 PM [facility] Sep 25, 2024 02:00 PM [place] [facility] Sep 25, 2024 02:15 PM [place] [facility] Oct 05, 2024 10:00 AM [place] [facility] Nov 02, 2024 10:00 AM [place] [facility] Nov 02, 2024 11:15 AM [place] [facility] Nov 15, 2024 01:30 PM [facility] Nov 30, 2024 10:00 AM [place] [facility] Dec 07, 2024 08:45 AM [place] [facility] Dec 14, 2024 10:00 AM AMBULATORY - MEDICINE [facility] Dec 18, 2024 07:00 AM AMBULATORY - NONE [facility] Social History: Smoking Status (Most current) and Tobacco Use (All prior to encounter date) This section includes the most current, and the historical, smoking and tobacco- related health factors from the [place] facility where the Encounter took place. Current Smoking Status This section includes the most current smoking, or tobacco-related health factor, from the [place] facility where the Encounter took place. Date/Time Current Smoking Status Comment Facil ity Nov 19, 2023 08:00 AM [place]-TOBACCO FORMER USER [facility] Tobacco Use History This section includes a history of the smoking, or tobacco-related health factors, that were collected on or before the date of the Encounter. The data comes from the [place] facility where the Encounter took place. Date/Time Smoking Status/Tobacco Use Comment F acility Nov 19, 2023 08:00 AM VA-TOBACCO QUIT 15 YRS OR MORE [facility] Jan 28, 2023 09:45 AM VA-TOBACCO FORMER USER [facility] Jan 28, 2023 09:45 AM VA-TOBACCO QUIT 15 YRS OR MORE [facility] Oct 30, 2021 03:00 PM VA-TOBACCO FORMER USER [facility] Oct 30, 2021 03:00 PM VA-TOBACCO QUIT 5 TO < 15 YRS [facility] Aug 17, 2019 11:38 AM VA-TOBACCO FORMER USER [facility] Aug 17, 2019 11:38 AM VA-TOBACCO QUIT 5 TO < 15 YRS [facility] Jan 06, 2018 02:39 PM FORMER TOBACCO USER 7Y OR GREATE R [facility] Jan 28, 2017 12:47 PM FORMER TOBACCO USER 7Y OR GREATE R [facility] Jan 21, 2016 03:04 PM FORMER TOBACCO USER 7Y OR GREATE R [facility] Apr 02, 2015 02:05 PM FORMER TOBACCO USER 7Y OR GREATE R [facility] March 01, 2014 09:10 AM FORMER TOBACCO USER 7Y OR GREATE R [facility] Sep 18, 2013 09:13 AM CDM COPD TOBACCO NON-USER [facility] May 28, 2013 11:05 AM LIFETIME NON-TOBACCO USER [facility] May 25, 2013 12:08 PM FORMER TOBACCO USER 7Y OR GREATE R [facility] Jun 18, 2009 09:48 AM FORMER TOBACCO USER 7Y OR JOE Penny [facility] Aug 24, 2008 10:10 AM FORMER TOBACCO USE >1Y <7Y [facility] Advance Directives: All historical and current Section Date Range: From patient's date of to the date document was created. This section includes ALL of a patient's completed or amended [place] Advance and Rescinded Directives. The entries below indicate that a directive exists for the patient, but an actual copy is not included with this document. The data comes from all [place] facilities. Date Advance Directives Provider Source March 08, 2023 ADVANCE DIRECTIVE [facility]IA [facility] May 02, 2014 ADVANCE DIRECTIVE DISCUSSION QUEENIE SAENZ [facility] May 24, 2013 CLINICAL WARNING SHEYLARGALINDO [facility] Sep 21, 2011 ADVANCE DIRECTIVE JORDAN ZHANG [facility] Radiology Reports: +/- 30 days [...] the Encounter. The data comes from all [place] treatment facilities. Date/Time Radiology Report Provider Source Aug 18, 2024 01:[address] UPPER EXTREMITY (P): KEENA ROSA [id number] -1955 M Exm Date: AUG 18, 2024@13:12 Req Phys: INES AZEVEDO Pat Loc: [facility] (Req' Img Loc: CT IMAGING Service: [place] [address] (Case [id number] COMPLETE) CT UPPER EXTREMITY W/O CONT (CT Detailed) CPT:19472 Reason for Study: right shoulder pain Clinical History: right shoulder pain, evaluate RC, in plane of scapula for preop RTSA planning Report Status: Verified Date Reported: AUG 18, 2024 Date Verified: AUG 18, 2024 Case Technician E-Sig:/ES/MIRANDA BROOKE MD Report: EXAMINATION: CT UPPER [...] Primary Interpreting Staff: MIRANDA BROOKE MD, RADIOLOGIST (Case Technician) /RTS MIRANDA BROOKE [facility] Encounter Notes: All associated encounter notes This section contains the clinical notes associated to the Encounter. Date/Time Encounter Note(s) Provider Source Aug 02, 2024 04:01 PM ORTHOPEDIC SURGERY ATTENDING NOTE: LOCAL TITLE: ORTHOPEDIC CLINIC NOTE STANDARD TITLE: ORTHOPEDIC SURGERY ATTENDING NOTE DATE OF NOTE: AUG 02, 2024@16:01 ENTRY DATE: AUG 02, 2024@16:01:32 AUTHOR: NIETZ,INES D EXP COSIGNER: URGENCY: STATUS: COMPLETED PATIENT NAME: KENEA ROSA SSN:[id number] DATE OF : Jan DATE OF SERVICE: 08/02/24 15:00 CHIEF COMPLAINT: Right shoulder follow-up HISTORY OF PRESENT ILLNESS: 69-year-old [id number] male returning for repeat evaluation of right shoulder pain. Patient has had difficulty lifting his arm to or above shoulder height for the past several years, but this has become more difficult in the last year. He was seen in early May at which time we reviewed his x-rays which do show some arthritic change within the glenohumeral joint, but exam findings were consistent with weakness of the supraspinatus and infraspinatus. We discussed that the rotator cuff in the absence of an acute injury would be difficult to repair, and that the options for treatment including managing pain with injection versus consideration of surgery. Patient does have multiple comorbidities including severe COPD for which he uses oxygen, diabetes with neuropathy, CAD h/o [place], and has been considered high risk for TKA/KENYON procedures in last couple of years. Due to the increased risk, we did offer a cortisone injection to see if this would give any extended benefit. The injection gave relief for about 1 week, but pain has returned. PHYSICAL EXAM: VSD - Detailed Vitals Date Vital Measurement Qualifiers 07/27/2024 11:27 Wt lbs (kg)[BMI] 194 (88.00)[28*] Actual BMI: 27.9 EXAM: Exam essentially unchanged from May 2024 visit. Active range of motion: Forward elevation 70, abduction 50, external rotation 20. He has pain at the extremes of these motions. Strength with resisted abduction 4/5, external rotation 4/5, internal rotation 5/5. IMAGING: No new imaging ASSESSMENT: Rotator cuff arthropathy right shoulder PLAN: Patient did get some good short-term benefit from the cortisone injection, but this was not long-lasting. We had discussed previously that surgically the option would be a reverse total shoulder arthroplasty, but he would remain in the high risk category. We did discuss obtaining further imaging with a CT scan to adequately assess the remaining rotator cuff and assess bone quality. I will arrange a follow-up with Dr. Martino, with whom I discussed the case today, following the CT. This note was entered using speech recognition software. Although I diligently review and edit my dictations, insensible words or phrases may be present. /kyle/ INES AZEVEDO PA-C PHYSICIAN OCCUPATIONAL THERAPIST ASSISTANTS Signed: 08/02/2024 16:08 INES AZEVEDO [facility]
[2025-01-16 08:08] LABS: Appearance Urine Clear (Clear); Bilirubin Urine Negative (Negative); Blood Urine Negative (Negative); Color Urine Yellow (Yellow); Glucose Urine 3+ (Negative); Ketones Urine Trace (Negative); Leukocyte Esterase Urine Negative (Negative); Nitrite Urine Negative (Negative); Protein Urine Negative (Negative); Specific Gravity Urine <= 1.005 (1.000-1.030); pH Urine 5.5 (5.0-8.5)
--- OUTSIDE RECORDS SUMMARY | 2025-01-16 08:08 | XMS_ITS | Encounter Summary ---
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 Date/Time Encounter Type Encounter Description Reason Provider Source Jan 10, 2025 01:00 AM Outpatient Encounter ADMIN PAT ACTIVTIES ([facility]) SYSTEM,[facility] Encounter Template Text not used by [place] Plan of Treatment: Future Appointments (+ 6 months) and Future Tests (+/- 45 days) The Plan of Treatment section includes future care activities for the patient from all [place] [facility] This section includes future appointments and future orders which are active, pending or scheduled. Future Appointments This section includes appointments that were scheduled to occur 6 months from the date of the Encounter, up to a maximum of 20 appointments. The data comes from all [facility]. Appointment Date/Time Appointment Type Appointme nt Facility Name Jan 24, 2025 01:00 PM AMBULATORY - SURGERY [facility] Jan 25, 2025 10:00 AM AMBULATORY - MEDICINE [facility] Jan 25, 2025 11:00 AM AMBULATORY - REHAB MEDICIN E [facility] Feb 01, 2025 10:00 AM AMBULATORY - MEDICINE [facility] Feb 01, 2025 11:00 AM AMBULATORY - MEDICINE [facility] Feb 08, 2025 10:00 AM AMBULATORY - MEDICINE [facility] February 22, 2025 10:00 AM AMBULATORY - MEDICINE [facility] February 23, 2025 11:00 AM AMBULATORY - NONE [facility] February 23, 2025 11:30 AM AMBULATORY - SURGERY [facility] March 08, 2025 10:00 AM AMBULATORY - MEDICINE [facility] Apr 09, 2025 01:00 PM AMBULATORY SURGERY [facility] Active, Pending, and Scheduled Orders This section includes a listing of several types of active, pending, and scheduled orders, including clinic medications orders, diagnostic test orders, procedure orders and consult orders; where the start date of the order is 45 days before the date of the Encounter or 45 days after the date of theEncounter. The data comes from all [facility]. Test Date/Time Test Type Test Details Facility Name Dec 11, 2024 11:04 AM Consult Order PT PHYSICA L THERAPY OUTPT ORTHO SURGERY Cons Rn [facility] Jan 10, 2025 12:00 AM Laboratory - Blood Bank Order TYPE & SCREEN - LAB BLOOD WC [facility] Jan 12, 2025 08:18 AM Consult Order [facility] Jan 22, 2025 12:00 AM Laboratory - Chemi stry Order HEMOGLOBIN A1C BLOOD SP ONCE [facility] Jan 22, 2025 12:00 AM Laboratory - Chemi stry Order BASIC METABOLIC PANEL+MG PLASMA SP [facility] February 23, 2025 11:00 AM Imaging - General Radiology Order SHOULDER RIGHT 2-3 VIEWS RIGHT [facility] Lab Results: +/- 30 days [...] Range Comment Jan 11, 2025 12:21 PM [facility] FINGERSTICK GLUCOSE Specimen Type: BLOOD Comment: Save Result Nurse Notified Ordering Provider: ANDREA WOLF Report Released Date/Time: Jan 11, 2025 12:51 PM Reporting Lab: [facility] [phone] Performing Lab: [facility] [phone] FINGERSTICK GLUCOSE 246 mg/dL H 70-100 Jan 11, 2025 07:37 AM [facility] CBC Specimen Type: BLOOD No comment entered. Ordering Provider: ANDREA WOLF Report Released Date/Time: Jan 10, 2025 02:40 PM Reporting Lab: [facility] [phone] Performing Lab: [facility] [address] WBC 9.7 4.0-11.0 RBC 4.50 L 4.60-6.20 HGB 12.9 g/dL L 13.5-17.9 HCT 42.3 41.0-54.0 MCV 94.0 fL 80.0-100.0 MCH 28.7 pg 27.0-33.0 MCHC 30.5 g/dL L 32.0-37.5 PLT 174 150-400 MPV 11.5 fL 9.1-13.0 RDW 13.3 11.5-14.5 Jan 11, 2025 07:37 AM [facility] BASIC METABOLIC PANEL+MG Specimen Type: PLASMA No comment entered. Ordering Provider: ANDREA WOLF Report Released Date/Time: Jan 10, 2025 02:40 PM Reporting Lab: [facility] [phone] Performing Lab: [facility] [phone] CREATININE 1.0 mg/dL 0.7-1.2 UREA NITROGEN 21 mg/dL 8-26 GLUCOSE 203 mg/dL H 70-100 SODIUM 136 mmol/L 136-145 POTASSIUM 4.1 mmol/L 3.5-5.1 CHLORIDE 102 mmol/L 98-107 CO2 23 mmol/L 22-29 CALCIUM 8.8 mg/dL 8.4-10.2 MAGNESIUM 2.0 mg/dL 1.6-2.6 ANION GAP 11 mmol/L 5-15 .CREAT EGFR(CKD-EPI) 80 >60 Jan 11, 2025 06:10 AM [facility] FINGERSTICK GLUCOSE Specimen Type: BLOOD Comment: Save Result Nurse Notified Ordering Provider: Lilli CHRISTENSEN Report Released Date/Time: Jan 11, 2025 07:41 AM Reporting Lab: [facility] [phone] Performing Lab: [facility] [address] FINGERSTICK GLUCOSE 220 mg/dL H 70-100 Jan 10, 2025 08:11 PM [facility] FINGERSTICK GLUCOSE Specimen Type: BLOOD Comment: Save Result Nurse Notified Ordering Provider: Lilli CHRISTENSEN Report Released Date/Time: Jan 10, 2025 08:36 PM Reporting Lab: [facility] [phone] Performing Lab: [facility] [address] FINGERSTICK GLUCOSE 239 mg/dL H 70-100 Jan 10, 2025 04:30 PM [facility] FINGERSTICK GLUCOSE Specimen Type: BLOOD Comment: Save Result Nurse Notified Ordering Provider: Lilli CHRISTENSEN Report Released Date/Time: Jan 10, 2025 05:34 PM Reporting Lab: [facility] [phone] Performing Lab: [facility] [address] FINGERSTICK GLUCOSE 190 mg/dL H 70-100 Jan 10, 2025 02:40 PM [facility] FINGERSTICK GLUCOSE Specimen Type: BLOOD Comment: Save Result Nurse Notified Ordering Provider: BENIGNO KIM Report Released Date/Time: Jan 10, 2025 03:01 PM Reporting Lab: [facility] [phone] Performing Lab: [facility] [address] FINGERSTICK GLUCOSE 183 mg/dL H 70-100 Jan 10, 2025 08:35 AM [facility] PROTHROMBIN TIME/INR Specimen Type: PLASMA Comment: ~Draw on admission. Call IV team to draw on admission. Ordering Provider: BENIGNO KIM A Report Released Date/Time: Jan 10, 2025 08:01 AM Reporting Lab: [facility] [phone] Performing Lab: [facility] [address] .INR 0.9 0.8-1.1 .PT 10.9 s 9.4-12.5 Jan 10, 2025 08:35 AM [facility] ACT PART THROMBO TIME Specimen Type: PLASMA Comment: ~Draw on admission. Call IV team to draw on admission. Ordering Provider: BENIGNO KIM A Report Released Date/Time: Jan 10, 2025 08:01 AM Reporting Lab: [facility] [phone] Performing Lab: [facility] [address] APTT 31.4 s 25.1-36.5 Jan 10, 2025 08:35 AM [facility] CBC Specimen Type: BLOOD No comment entered. Ordering Provider: BENIGNO KIM A Report Released Date/Time: Jan 10, 2025 08:01 AM Reporting Lab: [facility] [address] Performing Lab: [facility] [address] WBC 6.6 4.0-11.0 RBC 5.00 4.60-6.20 HGB 14.5 g/dL 13.5-17.9 HCT 46.1 41.0-54.0 MCV 92.2 fL 80.0-100.0 MCH 29.0 pg 27.0-33.0 MCHC 31.5 g/dL L 32.0-37.5 PLT 172 150-400 MPV 10.9 fL 9.1-13.0 RDW 13.7 11.5-14.5 Jan 10, 2025 08:35 AM [facility] BASIC METABOLIC PANEL+MG Specimen Type: PLASMA No comment entered. Ordering Provider: BENIGNO KIM A Report Released Date/Time: Jan 10, 2025 08:01 AM Reporting Lab: [facility] [address] Performing Lab: [facility] [address] CREATININE 0.9 mg/dL 0.7-1.2 UREA NITROGEN 19 mg/dL 8-26 GLUCOSE 151 mg/dL H 70-100 SODIUM 138 mmol/L 136-145 POTASSIUM 3.9 mmol/L 3.5-5.1 CHLORIDE 106 mmol/L 98-107 CO2 23 mmol/L 22-29 CALCIUM 9.3 mg/dL 8.4-10.2 MAGNESIUM 2.0 mg/dL 1.6-2.6 ANION GAP 9 mmol/L 5-15 .CREAT EGFR(CKD-EPI) >90 >60 Jan 10, 2025 08:35 AM [facility] FINGERSTICK GLUCOSE Specimen Type: BLOOD Comment: Save Result Ordering Provider: BENIGNO KIM Report Released Date/Time: Jan 10, 2025 10:31 AM Reporting Lab: [facility] [phone] Performing Lab: [facility] [address] FINGERSTICK GLUCOSE 155 mg/dL H 70-100 Dec 18, 2024 12:16 PM [facility] ALBUMIN Specimen Type: PLASMA No comment entered. Ordering Provider: BENIGNO KIM Report Released Date/Time: Sep 27, 2024 10:57 AM Reporting Lab: [facility] [address] Performing Lab: [facility] [address] ALBUMIN 4.4 g/dL 3.5-5.0 Dec 18, 2024 12:16 PM [facility] HEMOGLOBIN A1C Specimen Type: BLOOD [...] Sep 27, 2024 10:57 AM Reporting Lab: [facility] [phone] Performing Lab: [facility] [address] HEMOGLOBIN A1C 7.1 H 4.0-6.0 Dec 18, 2024 12:16 PM [facility] PROTHROMBIN TIME/INR Specimen Type: PLASMA No comment entered. Ordering Provider: BENIGNO KIM A Report Released Date/Time: Sep 27, 2024 10:57 AM Reporting Lab: [facility] [address] Performing Lab: [facility] [address] .INR 0.9 0.8-1.1 .PT 10.3 s 9.4-12.5 Dec 18, 2024 12:16 PM [facility] BASIC METABOLIC PANEL+MG Specimen Type: PLASMA No comment entered. Ordering Provider: BENIGNO KIM A Report Released Date/Time: Sep 27, 2024 10:57 AM Reporting Lab: [facility] [address] Performing Lab: [facility] [address] CREATININE 1.0 mg/dL 0.7-1.2 UREA NITROGEN 19 mg/dL 8-26 GLUCOSE 118 mg/dL H 70-100 SODIUM 139 mmol/L 136-145 POTASSIUM 4.1 mmol/L 3.5-5.1 CHLORIDE 104 mmol/L 98-107 CO2 25 mmol/L 22-29 CALCIUM 9.6 mg/dL 8.4-10.2 MAGNESIUM 2.1 mg/dL 1.6-2.6 ANION GAP 10 mmol/L 5-15 .CREAT EGFR(CKD-EPI) 80 >60 Dec 18, 2024 12:16 PM [facility] CBC & DIFF Specimen Type: BLOOD Comment: Automated Differential Performed Ordering Provider: BENIGNO KIM A Report Released Date/Time: Sep 27, 2024 10:57 AM Reporting Lab: [facility] [address] Performing Lab: [facility] [address] WBC 9.5 4.0-11.0 RBC 5.05 4.60-6.20 HGB [...] Source Jan 10, 2025 08:57 PM 6 [facility] Jan 10, 2025 07:57 PM 7 [facility] Jan 10, 2025 05:58 PM 187.8 27 [facility] Jan 10, 2025 09:21 AM 186 27 [facility] Jan 10, 2025 09:20 AM 98 61 128/73 16 98 7 [facility] Social History: Smoking Status (Most current) and Tobacco Use (All prior to encounter date) This section includes the most current, and the historical, smoking and tobacco- related health factors from the [facility] where the Encounter took place. Current Smoking Status This section includes the most current smoking, or tobacco-related health factor, from the [place] facility where the Encounter took place. Date/Time Current Smoking Status Comment Serina reece Nov 19, 2023 08:00 AM VA-TOBACCO FORMER USER [facility] Tobacco Use History This section includes a history of the smoking, or tobacco-related health factors, that were collected on or before the date of the Encounter. The data comes from the [place] facility where the Encounter took place. Date/Time Smoking Status/Tobacco Use Comment F mahamed Nov 19, 2023 08:00 AM VA-TOBACCO QUIT 15 YRS OR MORE [facility] Jan 28, 2023 09:45 AM VA-TOBACCO FORMER USER [facility] Jan 28, 2023 09:45 AM VA-TOBACCO QUIT 15 YRS OR MORE [facility] Oct 30, 2021 03:00 PM VA-TOBACCO FORMER USER [facility] Oct 30, 2021 03:00 PM VA-TOBACCO QUIT 5 TO < 15 YRS [facility] Aug 17, 2019 11:38 AM VA-TOBACCO FORMER USER [facility] Aug 17, 2019 11:38 AM VA-TOBACCO QUIT 5 TO < 15 YRS [facility] Jan 06, 2018 02:39 PM FORMER TOBACCO USER 7Y OR GREATE R [facility] Jan 28, 2017 12:47 PM FORMER TOBACCO USER 7Y OR GREATE R [facility] Jan 21, 2016 03:04 PM FORMER TOBACCO USER 7Y OR GREATE R [facility] Apr 02, 2015 02:05 PM FORMER TOBACCO USER 7Y OR GREATE R [facility] March 01, 2014 09:10 AM FORMER TOBACCO USER 7Y OR GREATE R [facility] Sep 18, 2013 09:13 AM CDM COPD TOBACCO NON-USER [facility] May 28, 2013 11:05 AM LIFETIME NON-TOBACCO USER [facility] May 25, 2013 12:08 PM FORMER TOBACCO USER 7Y OR GREATE R [facility] Jun 18, 2009 09:48 AM FORMER TOBACCO USER 7Y OR GREATE R [facility] Aug 24, 2008 10:10 AM FORMER TOBACCO USE >1Y <7Y [facility] Advance Directives: All historical and [...] March 08, 2023 ADVANCE DIRECTIVE ODILIA CHRISTIANSON [facility] May 02, 2014 ADVANCE DIRECTIVE DISCUSSION QUEENIE SAENZ [facility] May 24, 2013 CLINICAL WARNING NARCISOGALINDO J [facility] Sep 21, 2011 ADVANCE DIRECTIVE JORDAN ZHANG [facility] Radiology Reports: +/- 30 days of [...] AM SHOULDER RIGHT 2-3 VIEWS: KEENA ROSA [id number] -[id number] M Exm Date: JAN 10, 2025@07:58 Req Phys: ARMINDA KIMHECTOR Macias Loc: OR-PACU/01-10-2025@15:42 Img Loc: MAIN X-RAY Service: [place] [address] (Case [id number] COMPLETE) SHOULDER RIGHT 2-3 VIEWS (RAD Detailed) CPT:99897 Proc Modifiers : PORTABLE EXAM, OPERATING ROOM EXAM Reason for Study: right reverse TSA Clinical History: OR 6 shoulder rotator cuff arthropathy My pager number on record is: . I confirm that the pager number/cell phone number above is correct for reporting critical results. My correct contact # for critial results is:Valerio KIM [phone] Trainees only: Enter your staff provider's info here: LAST CREATININE 1.0 (12/18/24) Report Status: Verified Date Reported: JAN 10, 2025 Date Verified: JAN 10, 2025 Door Closer Mechanic E-Sig:/ES/MIRANDA BROOKE MD Report: EXAMINATION: SHOULDER RIGHT 2-3 VIEWS 01/10/2025 7:58 AM INDICATION: right reverse TSA Impression: Right reverse TSA. Components appear well seated. Report Sign Date/Time: 01/10/2025 3:39 PM Primary Interpreting Staff: MIRANDA BROOKE MD, RADIOLOGIST (Door Closer Mechanic) /RTS MIRANDA BROOKE [facility] Encounter Notes: All associated encounter notes This section contains the clinical notes associated to the Encounter. Date/Time Encounter Note(s) Provider Source Jan 10, 2025 01:00 AM CRITICAL CARE UNIT NOTE: LOCAL TITLE: [facility] RESPIRATORY THERAPY FLOWSHEET STANDARD TITLE: CRITICAL CARE UNIT NOTE DATE OF NOTE: JAN 10, 2025@01:00 ENTRY DATE: JAN 11, 2025@15:03:32 AUTHOR: HERB,MARIA VICTORIA EXP COSIGNER: URGENCY: STATUS: COMPLETED This is a place enrique only. Please see [facility] to view document. /es/ [facility] ICU DOCUMENT IMPORT Signed: 01/11/2025 15:03 SYSTEM,CIS-NETTE [facility]
--- OUTSIDE RECORDS SUMMARY | 2025-01-16 08:08 | XMS_ITS | Encounter Summary ---
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 Date/Time Encounter Type Encounter Description Reason Provider Source Jan 11, 2025 01:48 PM OFF/OP EST FEBRUARY X REQ PHY/QHP ANESTHESIA PRE/POST-OP CONSULT ICD-10-CM Z48.89 Encounter for other specified surgical aftercare MADINA ROWLAND I [facility] Encounter Template Text not used by ID Assessments - Encounter Diagnoses This section includes the primary and secondary diagnoses documented for the Encounter. Date/Time Primary/Secondary Diagnosis Diagnosis Name Provider Source Jan 11, 2025 01:51 PM PRIMARY Encounter for other specified surgical aftercare MADINA ROWLAND I [facility] Plan of Treatment: Future Appointments (+ 6 months) and Future Tests (+/- 45 days) The Plan of Treatment section includes future care activities for the patient [facility] This section includes future appointments and future orders which are active, pending or scheduled. Future Appointments This section includes appointments that were scheduled to occur 6 months from the date of the Encounter, up to a maximum of 20 appointments. The data comes from all [facility]. Appointment Date/Time Appointment Type Appointme nt Facility Name Jan 24, 2025 01:00 PM AMBULATORY - SURGERY [facility] Jan 25, 2025 10:00 AM AMBULATORY - MEDICINE [facility] Jan 25, 2025 11:00 AM AMBULATORY - [facility]AB [facility] Feb 01, 2025 10:00 AM AMBULATORY - MEDICINE [facility] Feb 01, 2025 11:00 AM AMBULATORY - MEDICINE [facility] Feb 08, 2025 10:00 AM AMBULATORY - MEDICINE [facility] February 22, 2025 10:00 AM AMBULATORY - MEDICINE [facility] February 23, 2025 11:00 AM AMBULATORY - NONE [facility] February 23, 2025 11:30 AM AMBULATORY - SURGERY [facility] March 08, 2025 10:00 AM AMBULATORY - MEDICINE [facility] Apr 09, 2025 01:00 PM AMBULATORY - [...] of theEncounter. The data comes from all [facility]. Test Date/Time Test Type Test Details Facility Name Dec 11, 2024 11:04 AM Consult Order PT PHYSICA L THERAPY OUTPT ORTHO SURGERY Cons Operations Analyst's Choice [facility] Jan 10, 2025 12:00 AM Laboratory - Blood Bank Order TYPE & SCREEN - LAB BLOOD WC [facility] Jan 12, 2025 08:18 AM Consult Order [facility] Cons Operations Analyst's [facility] Jan 22, 2025 12:00 AM Laboratory - Chemi stry Order BASIC METABOLIC PANEL+MG PLASMA SP [facility] Jan 22, 2025 12:00 AM Laboratory - Chemi stry Order HEMOGLOBIN A1C BLOOD SP ONCE [facility] February 23, 2025 11:00 AM Imaging - General Radiology Order SHOULDER RIGHT 2-3 VIEWS RIGHT [facility] Lab Results: +/- 30 days of the encounter This section includes the Chemistry and Hematology Lab Results on record with ID for the patient. Radiology Reports and Pathology Reports are provided separately, in subsequent sections. Lab Results This section contains the Chemistry/Hematology Results that were resulted 30 days before or 30 daysafter the date of the Encounter. Date/Time Source Result Type Result - Unit Interpretation Reference Range Comment Jan 11, 2025 12:21 PM [facility] FINGERSTICK GLUCOSE Specimen Type: BLOOD Comment: Save Result Nurse Notified Ordering Provider: ANDREA WOLF Report Released Date/Time: Jan 11, 2025 12:51 PM Reporting Lab: [facility] [phone] Performing Lab: [facility] [phone] FINGERSTICK GLUCOSE 246 mg/dL H 70-100 Jan 11, 2025 07:37 AM [facility] CBC Specimen Type: BLOOD No comment entered. Ordering Provider: ANDREA WOLF Report Released Date/Time: Jan 10, 2025 02:40 PM Reporting Lab: [facility] [phone] Performing Lab: [facility] [phone] WBC 9.7 4.0-11.0 RBC 4.50 L 4.60-6.20 HGB 12.9 g/dL L 13.5-17.9 HCT 42.3 41.0-54.0 MCV 94.0 fL 80.0-100.0 MCH 28.7 pg 27.0-33.0 MCHC 30.5 g/dL L 32.0-37.5 PLT 174 150-400 MPV 11.5 fL 9.1-13.0 RDW 13.3 11.5-14.5 Jan 11, 2025 07:37 AM [facility] BASIC METABOLIC PANEL+MG Specimen Type: PLASMA No comment entered. Ordering Provider: ANDREA WOLF Report Released Date/Time: Jan 10, 2025 02:40 PM Reporting Lab: [facility] [phone] Performing Lab: [facility] [phone] CREATININE 1.0 mg/dL 0.7-1.2 UREA NITROGEN 21 mg/dL 8-26 GLUCOSE 203 mg/dL H 70-100 SODIUM 136 mmol/L 136-145 POTASSIUM 4.1 mmol/L 3.5-5.1 CHLORIDE 102 mmol/L 98-107 CO2 23 mmol/L 22-29 CALCIUM 8.8 mg/dL 8.4-10.2 MAGNESIUM 2.0 mg/dL 1.6-2.6 ANION GAP 11 mmol/L 5-15 .CREAT EGFR(CKD-EPI) 80 >60 Jan 11, 2025 06:10 AM [facility] FINGERSTICK GLUCOSE Specimen Type: BLOOD Comment: Save Result Nurse Notified Ordering Provider: Lilli CHRISTENSEN Report Released Date/Time: Jan 11, 2025 07:41 AM Reporting Lab: [facility] [phone] Performing Lab: [facility] [phone] FINGERSTICK GLUCOSE 220 mg/dL H 70-100 Jan 10, 2025 08:11 PM [facility] FINGERSTICK GLUCOSE Specimen Type: BLOOD Comment: Save Result Nurse Notified Ordering Provider: Lilli CHRISTENSEN Report Released Date/Time: Jan 10, 2025 08:36 PM Reporting Lab: [facility] [phone] Performing Lab: [facility] [phone] FINGERSTICK GLUCOSE 239 mg/dL H 70-100 Jan 10, 2025 04:30 PM [facility] FINGERSTICK GLUCOSE Specimen Type: BLOOD Comment: Save Result Nurse Notified Ordering Provider: Lilli CHRISTENSEN Report Released Date/Time: Jan 10, 2025 05:34 PM Reporting Lab: [facility] [phone] Performing Lab: [facility] [phone] FINGERSTICK GLUCOSE 190 mg/dL H 70-100 Jan 10, 2025 02:40 PM [facility] FINGERSTICK GLUCOSE Specimen Type: BLOOD Comment: Save Result Nurse Notified Ordering Provider: BENIGNO KIM Report Released Date/Time: Jan 10, 2025 03:01 PM Reporting Lab: [facility] [phone] Performing Lab: [facility] [phone] FINGERSTICK GLUCOSE 183 mg/dL H 70-100 Jan 10, 2025 08:35 AM [facility] ACT PART THROMBO TIME Specimen Type: PLASMA Comment: ~Draw on admission. Call IV team to draw on admission. Ordering Provider: BENIGNO KIM Report Released Date/Time: Jan 10, 2025 08:01 AM Reporting Lab: [facility] [phone] Performing Lab: [facility] [phone] APTT 31.4 s 25.1-36.5 Jan 10, 2025 08:35 AM [facility] PROTHROMBIN TIME/INR Specimen Type: PLASMA Comment: ~Draw on admission. Call IV team to draw on admission. Ordering Provider: BENIGNO KIM Report Released Date/Time: Jan 10, 2025 08:01 AM Reporting Lab: [facility] [phone] Performing Lab: [facility] [phone] .INR 0.9 0.8-1.1 .PT 10.9 s 9.4-12.5 Jan 10, 2025 08:35 AM [facility] CBC Specimen Type: BLOOD No comment entered. Ordering Provider: BENIGNO KIM A Report Released Date/Time: Jan 10, 2025 08:01 AM Reporting Lab: [facility] [phone] Performing Lab: [facility] [phone] WBC 6.6 4.0-11.0 RBC 5.00 4.60-6.20 HGB 14.5 g/dL 13.5-17.9 HCT 46.1 41.0-54.0 MCV 92.2 fL 80.0-100.0 MCH 29.0 pg 27.0-33.0 MCHC 31.5 g/dL L 32.0-37.5 PLT 172 150-400 MPV 10.9 fL 9.1-13.0 RDW 13.7 11.5-14.5 Jan 10, 2025 08:35 AM [facility] FINGERSTICK GLUCOSE Specimen Type: BLOOD Comment: Save Result Ordering Provider: BENIGNO KIM Report Released Date/Time: Jan 10, 2025 10:31 AM Reporting Lab: [facility] [phone] Performing Lab: [facility] [phone] FINGERSTICK GLUCOSE 155 mg/dL H 70-100 Jan 10, 2025 08:35 AM [facility] BASIC METABOLIC PANEL+MG Specimen Type: PLASMA No comment entered. Ordering Provider: BENIGNO KIM A Report Released Date/Time: Jan 10, 2025 08:01 AM Reporting Lab: [facility] [phone] Performing Lab: [facility] [phone] CREATININE 0.9 mg/dL 0.7-1.2 UREA NITROGEN 19 mg/dL 8-26 GLUCOSE 151 mg/dL H 70-100 SODIUM 138 mmol/L 136-145 POTASSIUM 3.9 mmol/L 3.5-5.1 CHLORIDE 106 mmol/L 98-107 CO2 23 mmol/L 22-29 CALCIUM 9.3 mg/dL 8.4-10.2 MAGNESIUM 2.0 mg/dL 1.6-2.6 ANION GAP 9 mmol/L 5-15 .CREAT EGFR(CKD-EPI) >90 >60 Dec 18, 2024 12:16 PM [facility] ALBUMIN Specimen Type: PLASMA No comment entered. Ordering Provider: BENIGNO KIM A Report Released Date/Time: Sep 27, 2024 10:57 AM Reporting Lab: [facility] [phone] Performing Lab: [facility] [phone] ALBUMIN 4.4 g/dL 3.5-5.0 Dec 18, 2024 12:16 PM [facility] PROTHROMBIN TIME/INR Specimen Type: PLASMA No comment entered. Ordering Provider: BENIGNO KIM A Report Released Date/Time: Sep 27, 2024 10:57 AM Reporting Lab: [facility] [phone] Performing Lab: [facility] [phone] .INR 0.9 0.8-1.1 .PT 10.3 s 9.4-12.5 Dec 18, 2024 12:16 PM [facility] HEMOGLOBIN A1C Specimen Type: BLOOD Comment: [...] Sep 27, 2024 10:57 AM Reporting Lab: [facility] [phone] Performing Lab: [facility] [phone] HEMOGLOBIN A1C 7.1 H 4.0-6.0 Dec 18, 2024 12:16 PM [facility] BASIC METABOLIC PANEL+MG Specimen Type: PLASMA No comment entered. Ordering Provider: BENIGNO KIM A Report Released Date/Time: Sep 27, 2024 10:57 AM Reporting Lab: [facility] [phone] Performing Lab: [facility] [phone] CREATININE 1.0 mg/dL 0.7-1.2 UREA NITROGEN 19 mg/dL 8-26 GLUCOSE 118 mg/dL H 70-100 SODIUM 139 mmol/L 136-145 POTASSIUM 4.1 mmol/L 3.5-5.1 CHLORIDE 104 mmol/L 98-107 CO2 25 mmol/L 22-29 CALCIUM 9.6 mg/dL 8.4-10.2 MAGNESIUM 2.1 mg/dL 1.6-2.6 ANION GAP 10 mmol/L 5-15 .CREAT EGFR(CKD-EPI) 80 >60 Dec 18, 2024 12:16 PM [facility] CBC & DIFF Specimen Type: BLOOD Comment: Automated Differential Performed Ordering Provider: BENIGNO KIM Report Released Date/Time: Sep 27, 2024 10:57 AM Reporting Lab: [facility] [phone] Performing Lab: [facility] [phone] WBC 9.5 4.0-11.0 RBC 5.05 4.60-6.20 HGB [...] Source Jan 11, 2025 09:30 AM 5 [facility] Jan 11, 2025 08:35 AM 8 [facility] Jan 11, 2025 08:31 AM 97.5 50 122/69 16 100 8 [facility] Jan 11, 2025 04:27 AM 6 [facility] Jan 11, 2025 12:28 AM 9 [facility] Social History: Smoking [...] Encounter took place. Date/Time Current Smoking Status Mike reece Nov 19, 2023 08:00 AM VA-TOBACCO QUIT 15 YRS OR MORE [facility] Tobacco Use History This section includes a history of the smoking, or tobacco-related health factors, that were collected on or before the date of the Encounter. The data comes from the ID facility where the Encounter took place. Date/Time Smoking Status/Tobacco Use Comment F acility Nov 19, 2023 08:00 AM VA-TOBACCO QUIT 15 YRS OR MORE [facility] Jan 28, 2023 09:45 AM VA-TOBACCO FORMER USER [facility] Jan 28, 2023 09:45 AM VA-TOBACCO QUIT 15 YRS OR MORE [facility] Oct 30, 2021 03:00 PM VA-TOBACCO FORMER USER [facility] Oct 30, 2021 03:00 PM VA-TOBACCO QUIT 5 TO < 15 YRS [facility] Aug 17, 2019 11:38 AM VA-TOBACCO FORMER USER [facility] Aug 17, 2019 11:38 AM VA-TOBACCO QUIT 5 TO < 15 YRS [facility] Jan 06, 2018 02:39 PM FORMER TOBACCO USER 7Y OR GREATE R [facility] Jan 28, 2017 12:47 PM FORMER TOBACCO USER 7Y OR GREATE R [facility] Jan 21, 2016 03:04 PM FORMER TOBACCO USER 7Y OR GREATE R [facility] Apr 02, 2015 02:05 PM FORMER TOBACCO USER 7Y OR GREATE R [facility] March 01, 2014 09:10 AM FORMER TOBACCO USER 7Y OR GREATE R [facility] Sep 18, 2013 09:13 AM CDM COPD TOBACCO NON-USER [facility] May 28, 2013 11:05 AM LIFETIME NON-TOBACCO USER [facility] May 25, 2013 12:08 PM FORMER TOBACCO USER 7Y OR GREATE R [facility] Jun 18, 2009 09:48 AM FORMER TOBACCO USER 7Y OR GREATE R [facility] Aug 24, 2008 10:10 AM FORMER TOBACCO USE >1Y <7Y [facility] Advance Directives: All historical and current [...] March 08, 2023 ADVANCE DIRECTIVE ODILIA CHRISTIANSON [facility] May 02, 2014 ADVANCE DIRECTIVE DISCUSSION QUEENIE SAENZ [facility] May 24, 2013 CLINICAL WARNING GALINDO STUART [facility] Sep 21, 2011 ADVANCE DIRECTIVE JORDAN ZHANG [facility] Radiology Reports: +/- 30 days of the [...] the Encounter. The data comes from all [facility] facilities. Date/Time Radiology Report Provider Source Jan 10, 2025 07:58 AM SHOULDER RIGHT 2-3 VIEWS: KEENA ROSA [id number] Exm Date: JAN 10, 2025@07:58 Req Phys: SHELLI KIM Loc: OR-PACU/01-10-2025@15:42 Img Loc: MAIN X-RAY Service: [place] [address] (Case [id number] COMPLETE) SHOULDER RIGHT 2-3 VIEWS (RAD Detailed) CPT:63533 Proc Modifiers : PORTABLE EXAM, OPERATING ROOM EXAM Reason for Study: right reverse TSA Clinical History: OR 6 shoulder rotator cuff arthropathy My pager number on record is: . I confirm that the pager number/cell phone number above is correct for reporting critical results. My correct contact # for critial results is:Valerio KIM [phone] Trainees only: Enter your staff provider's info here: LAST CREATININE 1.0 (12/18/24) Report Status: Verified Date Reported: JAN 10, 2025 Date Verified: JAN 10, 2025 Property Site Manager E-Sig:/ES/MIRANDA BROOKE MD Report: EXAMINATION: SHOULDER RIGHT 2-3 VIEWS 01/10/2025 7:58 AM INDICATION: right reverse TSA Impression: Right reverse TSA. Components appear well seated. Report Sign Date/Time: 01/10/2025 3:39 PM Primary Interpreting Staff: MIRANDA BROOKE MD, RADIOLOGIST (Property Site Manager) /RTS MIRANDA BROOKE [facility] Encounter Notes: All associated encounter notes This section contains the clinical notes associated to the Encounter. Date/Time Encounter Note(s) Provider Source Jan 11, 2025 01:48 PM ANESTHESIOLOGY NOT E: LOCAL TITLE: ANESTHESIA POSTOPERATIVE ASSESSMENT STANDARD TITLE: ANESTHESIOLOGY NOTE DATE OF NOTE: JAN 11, 2025@13:48 ENTRY DATE: JAN 11, 2025@13:48:58 AUTHOR: Pauline STOUT COSIGNER: URGENCY: STATUS: COMPLETED POSTOPERATIVE ANESTHESIA ASSESSMENT 69 year old MALE who is POST OP DAY 1. ~~~~~~~~~~~~~~~~~~~~~~~~~~ ~~~~~~~~~~~~~~~~~~~~~~~~~~ ~~~~~~PATIENT LOCATION~~~ [place] ~~~~~~~~~~~~~~~~~~~~~~~~~~ ~~~~~~~~~~~~~~~~~~~~~~~~~~ ~~~~~~~ANESTHESIA TYPE~~~ *Regional/Neuraxial Block(s) performed: Interscalene Neurologic assessment (non-epidural) Normal motor and sensory function Yes - Site(s) are without redness, swelling, and hematoma Yes - Site(s) with intact, clean dressing *General Anesthesia/Monitored Anesthesia Care ~~~~~~~~~~~~~~~~~~~~~~~~~~ ~~~~~~~~~~~~~~~~~~~~~~~~~~ ~~~STATUS AND RESPONSE~~~ VS - Vital Signs Measurement DT TEMP PULSE RESP BP HT WT F(C) IN(CM) LB(KG)[BMI] ---- ----- ---- -- ------ 01/11/2025 08:31 97.5(36.4) 50 16 122/69 01/10/2025 17:58 188(85.2)[27] 01/10/2025 09:21 186(84.4)[27] 01/10/2025 09:20 98.0(36.7) 61 16 128/73 Measurement DT CVP POx CG CMH20(MMHG) (L/MIN)(%) IN(CM) ------ 01/11/2025 08:31 100 01/10/2025 09:20 98 Measurement DT Pain ---- 01/11/2025 09:30 5 01/11/2025 08:35 8 01/11/2025 08:31 8 01/11/2025 04:27 6 01/11/2025 00:28 9 01/11/2025 00:28 9 01/10/2025 20:57 6 01/10/2025 19:57 7 01/10/2025 09:20 7 BCMA MEDS GIVEN TODAY - NONE FOUND Collection DT Specimen Test Name Result Units Ref Range 01/11/2025 05:30 BLOOD WBC 9.7 10x3/uL 4.0 - 11.0 01/11/2025 05:30 BLOOD RBC 4.50 L 10x6/uL 4.60 - 6.20 01/11/2025 05:30 BLOOD HGB 12.9 L g/dL 13.5 - 17.9 01/11/2025 05:30 BLOOD HCT 42.3 % 41.0 - 54.0 01/11/2025 05:30 BLOOD MCV 94.0 fL 80.0 - 100.0 01/11/2025 05:30 BLOOD MCH 28.7 pg 27.0 - 33.0 01/11/2025 05:30 BLOOD MCHC 30.5 L g/dL 32.0 - 37.5 01/11/2025 05:30 BLOOD PLT 174 10x3/uL 150 - 400 01/11/2025 05:30 BLOOD MPV 11.5 fL 9.1 - 13.0 01/11/2025 05:30 BLOOD RDW 13.3 % 11.5 - 14.5 01/10/2025 08:35 PLASMA!! .INR 0.9 0.8 - 1.1 02/11/2023 01:21 PLASMA D-DIMER 2502 H FEU ng/mL 0 - 500 01/10/2025 08:35 PLASMA!! APTT 31.4 sec 25.1 - 36.5 !! Indicates COMMENTS AVAILABLE...Refer to Interim Lab Report. SLT - Lab Tests Selected Collection DT Specimen Test Name Result Units Ref Range 01/11/2025 05:30 PLASMA GLUCOSE 203 H mg/dL 70 - 100 01/11/2025 05:30 PLASMA SODIUM 136 mmol/L 136 - 145 01/11/2025 05:30 PLASMA POTASSIUM 4.1 mmol/L 3.5 - 5.1 01/11/2025 05:30 PLASMA CHLORIDE 102 mmol/L 98 - 107 01/11/2025 05:30 PLASMA CO2 23 mmol/L 22 - 29 01/11/2025 05:30 PLASMA ANION GAP 11 mmol/L 5 - 15 01/11/2025 05:30 PLASMA UREA NITROGEN 21 mg/dL 8 - 01/11/2025 05:30 PLASMA CREATININE 1.0 mg/dL 0.7 - 1.2 12/18/2024 12:16 PLASMA ALBUMIN 4.4 g/dL 3.5 - 5.0 01/11/2025 05:30 PLASMA CALCIUM 8.8 mg/dL 8.4 - 10.2 EGFR (05/21) 10/30/2021@1400 84 CREATININE EGFR (CKD-EPI) 01/11/2025@0530 80 Yes Vital signs stable Yes Awake/alert Yes Oriented to patient baseline No Complications reported (describe below if yes) ~~~~~~~~~~~~~~~~~~~~~~~~~~ ~~~~~~~~~~~~~~~~~~~~~~~~~~ ~~~~~~~~~~~~IMPRESSION~~~ Does the patient require follow up? NO /kyle/ MADINA STOUT CRNA CERTIFIED NURSE [employer] Signed: 01/11/2025 13:51 Pauline STOUT I [facility]
--- OUTSIDE RECORDS SUMMARY | 2025-01-16 08:08 | XMS_ITS | Encounter Summary ---
Author Name [facility] Organization [facility] Address [address] [place] [address] Care Team Providers Care Dipper Fish Name Role Phone ZENY MARTIN Primary Care [...] PART A Oct 18, 2013 PART A [id number] Mary ROSA PATIENT MEDICARE (WNR) MEDICARE (M) PART B Oct 18, 2013 PART B [id number] Mary ROSA EORODNEY PATIENT MEDICARE (WNR) MEDICARE (M) PART A Oct 18, 2013 PART A [id number] [phone] Mary ROSA PATIENT Selected Encounter This section includes the information on record at [place] for the Encounter. Date/Time Encounter Type Encounter Description Reason Provider Source Jan 10, 2025 05:02 PM OFFICE O/P NEW MOD 45 MIN ANES SPECIAL PROCS IN OR SUITE ICD-10-CM Z01.818 Encounter for other preprocedural examination ESTRADA,VITA IHE Encounter Template Text not used by DC Assessments - Encounter Diagnoses This section includes the primary and secondary diagnoses documented for the Encounter. Date/Time Primary/Secondary Diagnosis Diagnosis Name Provider Source Jan 10, 2025 05:03 PM PRIMARY Encounter for other preprocedural examination DAVID ESTRADA [facility] Plan of Treatment: Future Appointments (+ 6 months) and Future Tests (+/- 45 days) The Plan of Treatment section includes future care activities for the patient from all [place] treatmentfacilities. This section includes future appointments and future orders which are active, pending or scheduled. Future Appointments This section includes appointments that were scheduled to occur 6 months from the date of the Encounter, up to a maximum of 20 appointments. The data comes from all [facility]. Appointment Date/Time Appointment Type Appointme nt Facility Name Jan 24, 2025 01:00 PM AMBULATORY - SURGERY [facility] Jan 25, 2025 10:00 AM AMBULATORY - MEDICINE [facility] Jan 25, 2025 11:00 AM AMBULATORY - REHAB MEDICIN E [facility] Feb 01, 2025 10:00 AM AMBULATORY - MEDICINE [facility] Feb 01, 2025 11:00 AM AMBULATORY - MEDICINE [facility] Feb 08, 2025 10:00 AM AMBULATORY - MEDICINE [facility] February 22, 2025 10:00 AM AMBULATORY - MEDICINE [facility] February 23, 2025 11:00 AM AMBULATORY - NONE [facility] February 23, 2025 11:30 AM AMBULATORY - SURGERY [facility] March 08, 2025 10:00 AM AMBULATORY - MEDICINE [facility] Apr 09, 2025 01:00 PM AMBULATORY - SURGERY [facility] Active, Pending, and Scheduled Orders This section includes a listing of several types of active, pending, and scheduled orders, including clinic medications orders, diagnostic test orders, procedure orders and consult orders; where the start date of the order is 45 days before the date of the Encounter or 45 days after the date of theEncounter. The data comes from all [facility]. Test Date/Time Test Type Test Details Facility Name Dec 11, 2024 11:04 AM Consult Order PT PHYSICA L THERAPY OUTPT ORTHO SURGERY Cons Business Asst's Choice [facility] Jan 10, 2025 12:00 AM Laboratory - Blood Bank Order TYPE & SCREEN - LAB BLOOD WC [facility] Jan 12, 2025 08:18 AM Consult Order [facility] Cons Business Asst's Choice [facility] Jan 22, 2025 12:00 AM Laboratory - Chemi stry Order HEMOGLOBIN A1C BLOOD SP ONCE [facility] Jan 22, 2025 12:00 AM Laboratory - Chemi stry Order BASIC METABOLIC PANEL+MG PLASMA SP [facility] February 23, 2025 11:00 AM Imaging - General Radiology Order SHOULDER RIGHT 2-[address] [facility] Lab Results: +/- 30 days of the encounter This section includes the Chemistry and Hematology Lab Results on record with [place] for the patient. Radiology Reports and Pathology Reports are provided separately, in subsequent sections. Lab Results This section contains the Chemistry/Hematology Results that were resulted 30 days before or 30 daysafter the date of the Encounter. Date/Time Source Result Type Result - Unit Interpretation Reference Range Comment Jan 11, 2025 12:[address] [facility] FINGERSTICK GLUCOSE Specimen Type: BLOOD Comment: Save Result Nurse Notified Ordering Provider: ANDREA WOLF Report Released Date/Time: Jan 11, 2025 12:51 PM Reporting Lab: [facility] [phone] Performing Lab: [facility] [phone] FINGERSTICK GLUCOSE 246 mg/dL H 70-100 Jan 11, 2025 07:[address] [facility] CBC Specimen Type: BLOOD No comment entered. Ordering Provider: ANDREA WOLF Report Released Date/Time: Jan 10, 2025 02:40 PM Reporting Lab: [facility] [phone] Performing Lab: [facility] [phone] WBC 9.7 4.0-11.0 RBC 4.50 L 4.60-6.20 HGB 12.9 g/dL L 13.5-17.9 HCT 42.3 41.0-54.0 MCV 94.0 fL 80.0-100.0 MCH 28.7 pg 27.0-33.0 MCHC 30.5 g/dL L 32.0-37.5 PLT 174 150-400 MPV 11.5 fL 9.1-13.0 RDW 13.3 11.5-14.5 Jan 11, 2025 07:[address] [facility] BASIC METABOLIC PANEL+MG Specimen Type: PLASMA No comment entered. Ordering Provider: ANDREA WOLF Report Released Date/Time: Jan 10, 2025 02:40 PM Reporting Lab: [facility] [phone] Performing Lab: [facility] [phone] CREATININE 1.0 mg/dL 0.7-1.2 UREA NITROGEN 21 mg/dL 8-26 GLUCOSE 203 mg/dL H 70-100 SODIUM 136 mmol/L 136-145 POTASSIUM 4.1 mmol/L 3.5-5.1 CHLORIDE 102 mmol/L 98-107 CO2 23 mmol/L 22-29 CALCIUM 8.8 mg/dL 8.4-10.2 MAGNESIUM 2.0 mg/dL 1.6-2.6 ANION GAP 11 mmol/L 5-15 .CREAT EGFR(CKD-EPI) 80 >60 Jan 11, 2025 06:[address] [facility] FINGERSTICK GLUCOSE Specimen Type: BLOOD Comment: Save Result Nurse Notified Ordering Provider: Lilli CHRISTENSEN Report Released Date/Time: Jan 11, 2025 07:41 AM Reporting Lab: [facility] [phone] Performing Lab: [facility] [phone] FINGERSTICK GLUCOSE 220 mg/dL H 70-100 Jan 10, 2025 08:[address] [facility] FINGERSTICK GLUCOSE Specimen Type: BLOOD Comment: Save Result Nurse Notified Ordering Provider: Lilli CHRISTENSEN Report Released Date/Time: Jan 10, 2025 08:36 PM Reporting Lab: [facility] [phone] Performing Lab: [facility] [phone] FINGERSTICK GLUCOSE 239 mg/dL H 70-100 Jan 10, 2025 04:[address] [facility] FINGERSTICK GLUCOSE Specimen Type: BLOOD Comment: Save Result Nurse Notified Ordering Provider: Lilli CHRISTENSEN Report Released Date/Time: Jan 10, 2025 05:34 PM Reporting Lab: [facility] [phone] Performing Lab: [facility] [address] FINGERSTICK GLUCOSE 190 mg/dL H 70-100 Jan 10, 2025 02:[address] [facility] FINGERSTICK GLUCOSE Specimen Type: BLOOD Comment: Save Result Nurse Notified Ordering Provider: BENIGNO KIM A Report Released Date/Time: Jan 10, 2025 03:01 PM Reporting Lab: [facility] [phone] Performing Lab: [facility] [phone] FINGERSTICK GLUCOSE 183 mg/dL H 70-100 Jan 10, 2025 08:[address] [facility] ACT PART THROMBO TIME Specimen Type: PLASMA Comment: ~Draw on admission. Call IV team to draw on admission. Ordering Provider: BENIGNO KIM A Report Released Date/Time: Jan 10, 2025 08:01 AM Reporting Lab: [facility] [phone] Performing Lab: [facility] [phone] APTT 31.4 s 25.1-36.5 Jan 10, 2025 08:[address] [facility] PROTHROMBIN TIME/INR Specimen Type: PLASMA Comment: ~Draw on admission. Call IV team to draw on admission. Ordering Provider: BENIGNO KIM A Report Released Date/Time: Jan 10, 2025 08:01 AM Reporting Lab: [facility] [phone] Performing Lab: [facility] [phone] .INR 0.9 0.8-1.1 .PT 10.9 s 9.4-12.5 Jan 10, 2025 08:[address] [facility] CBC Specimen Type: BLOOD No comment entered. Ordering Provider: BENIGNO KIM A Report Released Date/Time: Jan 10, 2025 08:01 AM Reporting Lab: [facility] [phone] Performing Lab: [facility] [address] WBC 6.6 4.0-11.0 RBC 5.00 4.60-6.20 HGB 14.5 g/dL 13.5-17.9 HCT 46.1 41.0-54.0 MCV 92.2 fL 80.0-100.0 MCH 29.0 pg 27.0-33.0 MCHC 31.5 g/dL L 32.0-37.5 PLT 172 150-400 MPV 10.9 fL 9.1-13.0 RDW 13.7 11.5-14.5 Jan 10, 2025 08:[address] [facility] BASIC METABOLIC PANEL+MG Specimen Type: PLASMA No comment entered. Ordering Provider: BENIGNO KIM A Report Released Date/Time: Jan 10, 2025 08:01 AM Reporting Lab: [facility] [phone] Performing Lab: [facility] [address] CREATININE 0.9 mg/dL 0.7-1.2 UREA NITROGEN 19 mg/dL 8-26 GLUCOSE 151 mg/dL H 70-100 SODIUM 138 mmol/L 136-145 POTASSIUM 3.9 mmol/L 3.5-5.1 CHLORIDE 106 mmol/L 98-107 CO2 23 mmol/L 22-29 CALCIUM 9.3 mg/dL 8.4-10.2 MAGNESIUM 2.0 mg/dL 1.6-2.6 ANION GAP 9 mmol/L 5-15 .CREAT EGFR(CKD-EPI) >90 >60 Jan 10, 2025 08:[address] [facility] FINGERSTICK GLUCOSE Specimen Type: BLOOD Comment: Save Result Ordering Provider: BENIGNO KIM A Report Released Date/Time: Jan 10, 2025 10:31 AM Reporting Lab: [facility] [phone] Performing Lab: [facility] [address] FINGERSTICK GLUCOSE 155 mg/dL H 70-100 Dec 18, 2024 12:[address] [facility] ALBUMIN Specimen Type: PLASMA No comment entered. Ordering Provider: BENIGNO KIM A Report Released Date/Time: Sep 27, 2024 10:57 AM Reporting Lab: [facility] [phone] Performing Lab: [facility] [address] ALBUMIN 4.4 g/dL 3.5-5.0 Dec 18, 2024 12:[address] [facility] HEMOGLOBIN A1C Specimen Type: BLOOD [...] Sep 27, 2024 10:57 AM Reporting Lab: [facility] [phone] Performing Lab: [facility] [phone] HEMOGLOBIN A1C 7.1 H 4.0-6.0 Dec 18, 2024 12:[address] [facility] PROTHROMBIN TIME/INR Specimen Type: PLASMA No comment entered. Ordering Provider: BENIGNO KIM A Report Released Date/Time: Sep 27, 2024 10:57 AM Reporting Lab: [facility] [phone] Performing Lab: [facility] [phone] .INR 0.9 0.8-1.1 .PT 10.3 s 9.4-12.5 Dec 18, 2024 12:[address] [facility] BASIC METABOLIC PANEL+MG Specimen Type: PLASMA No comment entered. Ordering Provider: BENIGNO KIM A Report Released Date/Time: Sep 27, 2024 10:57 AM Reporting Lab: [facility] [phone] Performing Lab: [facility] [address] CREATININE 1.0 mg/dL 0.7-1.2 UREA NITROGEN 19 mg/dL 8-26 GLUCOSE 118 mg/dL H 70-100 SODIUM 139 mmol/L 136-145 POTASSIUM 4.1 mmol/L 3.5-5.1 CHLORIDE 104 mmol/L 98-107 CO2 25 mmol/L 22-29 CALCIUM 9.6 mg/dL 8.4-10.2 MAGNESIUM 2.1 mg/dL 1.6-2.6 ANION GAP 10 mmol/L 5-15 .CREAT EGFR(CKD-EPI) 80 >60 Dec 18, 2024 12:[address] [facility] CBC & DIFF Specimen Type: BLOOD Comment: Automated Differential Performed Ordering Provider: BENIGNO KIM A Report Released Date/Time: Sep 27, 2024 10:57 AM Reporting Lab: [facility] [phone] Performing Lab: [facility] [phone] WBC 9.5 4.0-11.0 RBC 5.05 4.60-6.20 HGB [...] Source Jan 10, 2025 08:57 PM 6 [facility] Jan 10, 2025 07:57 PM 7 [facility] Jan 10, 2025 05:58 PM 187.8 27 [facility] Jan 10, 2025 09:21 AM 186 27 [facility] Jan 10, 2025 09:20 AM 98 61 128/73 16 98 7 [facility] Social History: Smoking Status (Most current) and Tobacco Use (All prior to encounter date) This section includes the most current, and the historical, smoking and tobacco- related health factors from the [facility] where the Encounter took place. Current Smoking Status This section includes the most current smoking, or tobacco-related health factor, from the [place] facility where the Encounter took place. Date/Time Current Smoking Status Mike reece Nov 19, 2023 08:00 AM VA-TOBACCO FORMER USER [facility] Tobacco Use History This section includes a history of the smoking, or tobacco-related health factors, that were collected on or before the date of the Encounter. The data comes from the [place] facility where the Encounter took place. Date/Time Smoking Status/Tobacco Use Comment F acility Nov 19, 2023 08:00 AM VA-TOBACCO QUIT [address] [facility] Jan 28, 2023 09:45 AM VA-TOBACCO FORMER USER [facility] Jan 28, 2023 09:45 AM VA-TOBACCO QUIT [address] [facility] Oct 30, 2021 03:00 PM VA-TOBACCO FORMER USER [facility] Oct 30, 2021 03:00 PM VA-TOBACCO QUIT 5 TO < [address] [facility] Aug 17, 2019 11:38 AM VA-TOBACCO FORMER USER [facility] Aug 17, 2019 11:38 AM VA-TOBACCO QUIT 5 TO < [address] [facility] Jan 06, 2018 02:39 PM FORMER TOBACCO USER 7Y OR GREATE R [facility] Jan 28, 2017 12:47 PM FORMER TOBACCO USER 7Y OR GREATE R [facility] Jan 21, 2016 03:04 PM FORMER TOBACCO USER 7Y OR GREATE R [facility] Apr 02, 2015 02:05 PM FORMER TOBACCO USER 7Y OR GREATE R [facility] March 01, 2014 09:10 AM FORMER TOBACCO USER 7Y OR GREATE R [facility] Sep 18, 2013 09:13 AM CDM COPD TOBACCO NON-USER [facility] May 28, 2013 11:05 AM LIFETIME NON-TOBACCO USER [facility] May 25, 2013 12:08 PM FORMER TOBACCO USER 7Y OR GREATE R [facility] Jun 18, 2009 09:48 AM FORMER TOBACCO USER 7Y OR GREATE R [facility] Aug 24, 2008 10:10 AM FORMER TOBACCO USE >1Y <7Y [facility] Advance Directives: All historical and current Section Date Range: From patient's date of to the date document was created. This section includes ALL of a patient's completed or amended [place] Advance and Rescinded Directives. The entries below indicate that a directive exists for the patient, but an actual copy is not included with this document. The data comes from all [place] facilities. Date Advance Directives Provider Source March 08, 2023 ADVANCE DIRECTIVE ODILIA CHRISTIANSON [facility] May 02, 2014 ADVANCE DIRECTIVE DISCUSSION QUEENIE SAENZ [facility] May 24, 2013 CLINICAL WARNING GALINDO STUART [facility] Sep 21, 2011 ADVANCE DIRECTIVE JORDAN ZHANG [facility] Radiology Reports: +/- 30 days of the [...] the Encounter. The data comes from all [place] treatment facilities. Date/Time Radiology Report Provider Source Jan 10, 2025 07:58 AM SHOULDER RIGHT 2-3 VIEWS: KEENA ROSA [id number] -[id number] M Exm Date: JAN 10, 2025@07:58 Req Phys: SHELLI KIM Loc: OR-PACU/01-10-2025@15:42 Img Loc: MAIN X-RAY Service: [place] [address] (Case [id number] COMPLETE) SHOULDER RIGHT 2-3 VIEWS (RAD Detailed) CPT:13889 Proc Modifiers : PORTABLE EXAM, OPERATING ROOM EXAM Reason for Study: right reverse TSA Clinical History: OR 6 shoulder rotator cuff arthropathy My pager number on record is: . I confirm that the pager number/cell phone number above is correct for reporting critical results. My correct contact # for critial results is:Valerio KIM [phone] Trainees only: Enter your staff provider's info here: LAST CREATININE 1.0 (12/18/24) Report Status: Verified Date Reported: JAN 10, 2025 Date Verified: JAN 10, 2025 Manager Benefit E-Sig:/ES/MIRANDA BROOKE MD Report: EXAMINATION: SHOULDER RIGHT 2-3 VIEWS 01/10/2025 7:58 AM INDICATION: right reverse TSA Impression: Right reverse TSA. Components appear well seated. Report Sign Date/Time: 01/10/2025 3:39 PM Primary Interpreting Staff: MIRANDA BROOKE MD, RADIOLOGIST (Manager Benefit) /MIRANDA PAULSON [facility] Encounter Notes: All associated encounter notes This section contains the clinical notes associated to the Encounter. Date/Time Encounter Note(s) Provider Source Jan 10, 2025 05:03 PM ANESTHESIOLOGY PRO CEDURE NOTE: LOCAL TITLE: ANESTHESIA PROCEDURE NOTE STANDARD TITLE: ANESTHESIOLOGY PROCEDURE NOTE DATE OF NOTE: JAN 10, 2025@17:03 ENTRY DATE: JAN 10, 2025@17:03:41 AUTHOR: DAVID ESTRADAIGNER: URGENCY: STATUS: COMPLETED ANESTHESIA REGIONAL/NEURAXIAL BLOCK PLACEMENT --------PRE-PROCEDURE TIMEOUT--------- Informed consent was obtained and placed in the patients electronic medical record. If another practitioner was substituted to participate or perform the procedure for any of those named in the informed consent, the patient was informed of the change and the patients verbal consent was obtained. ~~~~~~~~~~~~~~~~~~~~~~~~~~~~~~ ~~~~~~~~~~~~~~~~~~~~~~PRE-PROC EDURE ANESTHESIOLOGIST INITIATED TIMEOUT~~~~ Confirmation of patient identity with patient stating: Full name Date of Procedure(s) to be performed Laterality Confirmation by participants of correct patient (arm band), procedure and laterality. Visual confirmation by participants that the surgical site is marked. Visual confirmation by participants that the regional block site is marked. Validity of surgical informed consent checked by participants. Validity of regional block informed consent checked by participants. Verbal agreement by participants of patients correct position. Confirmation of emergency airway equipment and emergency medications including intralipid rescue. Allergies Time out participants: Anesthesiologist: Gualberto (Ruth) / Bell (N,Resident) Certified Registered Nurse Wool Grader: N/A Non-Anesthesia provider for time out: MELITA Santos Time block placed: 1052 Standard monitors applied (BP, ECG, SPO2), and patent IV access verified. ~~~~~~~~~~~~~~~~~~~~~~~~~~~~~~ ~~~~~~~~~~~~~~~~~~~~~~~PREMEDI CATIONS GIVEN~~~~ Fentanyl 50 mcg IVP ~~~~~~~~~~~~~~~~~~~~~~~~~~~~~~ ~~~~~~~~~~~~~~~~~~~~~~~~~~~SIT E PREPARATION~~~~ Asepsis Chlorhexidine Sterile gloves Hand washing Hat Mask Technique Single injection Needle 4 inch 21G ~~~~~~~~~~~~~~~~~~~~~~~~~~~~~~ ~~~~~~~~~~~~~~~~~~~~~~~~PLACEM ENT TECHNIQUE~~~~ [place] Ultrasound guided Local anesthetic spread visualized around nerves or fascial plane Sterile probe cover used Relevant structures identified Nerve bundles identified US images saved?: No ~~~~~~~~~~~~~~~~~~~~~~~~~~~~~~ ~~~~~~~~~~~~~~~~~~~~~~~~~~~~BL OCK PERFORMED~~~~ Laterality Right Block(s) performed: Other: Suprascapular nerve (posterior approach), 12 ml Axillary nerve block, 8 ml ~~~~~~~~~~~~~~~~~~~~~~~~~~~~~~ ~~~~~~~~~~~~~~~~~~~ANESTHETIC AND ADDITIVES~~~~ Bupivacaine 0.5% - 20 ml Additive (s) Dexamethasone 4 mg ~~~~~~~~~~~~~~~~~~~~~~~~~~~~~~ ~~~~~~~~~~~~~~~BLOCK EFFICACY AND PLACEMENT~~~~ Negative pain on injection Injection resistance minimal (<15 psi/by feel) Negative aspiration prior to injection Success Uneventful placement, vital signs monitored throughout placement Block successfully placed, full evaluation pending /es/ DAVID ESTRADA MD ANESTHESIOLOGIST Signed: 01/10/2025 17:11 DAVID ESTRADA [facility]
--- OUTSIDE RECORDS SUMMARY | 2025-01-16 08:09 | XMS_ITS ---
[place] DAILY HOSPITALIZATION DATA [facility] Encounter Summary Created on: January 16, 2025 KEENA ROSA : 1955 Sex: Male Author Name Department of [facility] Affairs ([place]) Organization [facility] Address [address] [place] [address] Care Team Providers Care Cloth Dyer Name Role Phone ZENY MARTIN Primary Care [...] PART A Oct 18, 2013 PART A [id number] [phone] Mary ROSA PATIENT MEDICARE (WNR) MEDICARE (M) PART B Oct 18, 2013 PART B [id number] [phone] Mary ROSA EOMIRELAD PATIENT MEDICARE (WNR) MEDICARE (M) PART A Oct 18, 2013 PART A [id number] Mary ROSA PATIENT Selected Encounter This section includes the information on record at [place] for the Encounter. Date/Time Encounter Type Encounter Description Reason Pro vider Source Jan 10, 2025 04:25 PM Inpatient Visit DAILY HOSPITALIZATION DATA BLADE KIM Encounter Template Text not used by [place] Plan of Treatment: Future Appointments (+ 6 months) and Future Tests (+/- 45 days) The Plan of Treatment section includes future care activities for the patient from all [place] [facility]. This section includes future appointments and future orders which are active, pending or scheduled. Future Appointments This section includes appointments that were scheduled to occur 6 months from the date of the Encounter, up to a maximum of 20 appointments. [facility]. Appointment Date/Time Appointment Type Appointme nt [...] February 22, 2025 10:00 AM AMBULATORY MEDICINE [facility] February 23, 2025 11:00 AM AMBULATORY - NONE [facility] February 23, 2025 11:30 AM AMBULATORY - SURGERY [facility] March 08, 2025 10:00 AM AMBULATORY - MEDICINE [facility] Apr 09, 2025 01:00 PM AMBULATORY - SURGERY [facility] Active, Pending, and Scheduled Orders This section includes a listing of several types of active, pending, and scheduled orders, including clinic medications orders, diagnostic test orders, procedure orders and consult orders; where the start date of the order is 45 days before the date of the Encounter or 45 days after the date of theEncounter. The data comes from all [facility]. Test Date/Time Test Type Test Details Facility Name Dec 11, 2024 11:04 AM Consult Order PT PHYSICA L THERAPY OUTPT ORTHO SURGERY [employer] [facility] Jan 10, 2025 12:00 AM Laboratory - Blood Bank Order TYPE & SCREEN - LAB BLOOD [facility] Jan 12, 2025 08:18 AM Consult Order [facility] [employer] Jan 22, 2025 12:00 AM Laboratory [...] and Hematology Lab Results on record with [place] for the patient. Radiology Reports and Pathology [...] Jan 11, 2025 12:51 PM Reporting Lab: [facility] [id number] Performing Lab: [facility] [address] FINGERSTICK GLUCOSE 246 mg/dL H 70-100 Jan 11, 2025 07:37 AM [facility] CBC Specimen Type: BLOOD No comment entered. Ordering Provider: ANDREA WOLF Report Released Date/Time: Jan 10, 2025 02:40 PM Reporting Lab: [facility] [address] Performing Lab: [facility] [address] WBC 9.7 4.0-11.0 RBC 4.50 L 4.60-6.20 [...] Jan 10, 2025 02:40 PM Reporting Lab: [facility] [address] Performing Lab: [facility] [address] CREATININE 1.0 mg/dL 0.7-1.2 UREA NITROGEN 21 [...] Jan 11, 2025 07:41 AM Reporting Lab: [facility] [address] Performing Lab: [facility] [address] FINGERSTICK GLUCOSE 220 mg/dL H 70-100 Jan 10, 2025 08:11 PM [facility] FINGERSTICK GLUCOSE Specimen Type: BLOOD Comment: Save Result Nurse Notified Ordering Provider: Lilli CHRISTENSEN Report Released Date/Time: Jan 10, 2025 08:36 PM Reporting Lab: [facility] [address] Performing Lab: [facility] [address] FINGERSTICK GLUCOSE 239 mg/dL H 70-100 Jan 10, 2025 04:30 PM [facility] FINGERSTICK GLUCOSE Specimen Type: BLOOD Comment: Save Result Nurse Notified Ordering Provider: Lilli CHRISTENSEN Report Released Date/Time: Jan 10, 2025 05:34 PM Reporting Lab: [facility] [address] Performing Lab: [facility] [address] FINGERSTICK GLUCOSE 190 mg/dL H 70-100 Jan 10, 2025 02:40 PM [facility] FINGERSTICK GLUCOSE Specimen Type: BLOOD Comment: Save Result Nurse Notified Ordering Provider: BENIGNO KIM Report Released Date/Time: Jan 10, 2025 03:01 PM Reporting Lab: [facility] [address] Performing Lab: [facility] [address] FINGERSTICK GLUCOSE 183 mg/dL H 70-100 Jan 10, 2025 08:35 AM [facility] ACT PART THROMBO TIME Specimen Type: PLASMA Comment: ~Draw on admission. Call IV team to draw on admission. Ordering Provider: BENIGNO KIM A Report Released Date/Time: Jan 10, 2025 08:01 AM Reporting Lab: [facility] [address] Performing Lab: [facility] [address] APTT 31.4 s 25.1-36.5 Jan 10, 2025 08:35 AM [facility] PROTHROMBIN TIME/INR Specimen Type: PLASMA Comment: ~Draw on admission. Call IV team to draw on admission. Ordering Provider: BENIGNO KIM A Report Released Date/Time: Jan 10, 2025 08:01 AM Reporting Lab: [facility] [address] Performing Lab: [facility] [address] .INR 0.9 0.8-1.1 .PT 10.9 s 9.4-12.5 Jan 10, 2025 08:35 AM [facility] CBC Specimen Type: BLOOD No comment entered. Ordering Provider: BENIGNO KIM A Report Released Date/Time: Jan 10, 2025 08:01 AM Reporting Lab: [facility] [address] Performing Lab: [facility] [address] WBC 6.6 4.0-11.0 RBC 5.00 4.60-6.20 HGB [...] Jan 10, 2025 08:01 AM Reporting Lab: [facility] [address] Performing Lab: [facility] [address] CREATININE 0.9 mg/dL 0.7-1.2 UREA NITROGEN 19 [...] Jan 10, 2025 10:31 AM Reporting Lab: [facility] [address] Performing Lab: [facility] [address] FINGERSTICK GLUCOSE 155 mg/dL H 70-100 Dec [...] Sep 27, 2024 10:57 AM Reporting Lab: [facility] [address] Performing Lab: [facility] [address] HEMOGLOBIN A1C 7.1 H 4.0-6.0 Dec 18, 2024 12:16 PM [facility] ALBUMIN Specimen Type: PLASMA No comment entered. Ordering Provider: BENIGNO KIM Report Released Date/Time: Sep 27, 2024 10:57 AM Reporting Lab: [facility] [address] Performing Lab: [facility] [address] ALBUMIN 4.4 g/dL 3.5-5.0 Dec 18, 2024 12:16 PM [facility] PROTHROMBIN TIME/INR Specimen Type: PLASMA No comment entered. Ordering Provider: BENIGNO KIM A Report Released Date/Time: Sep 27, 2024 10:57 AM Reporting Lab: [facility] [address] Performing Lab: [facility] [address] .INR 0.9 0.8-1.1 .PT 10.3 s 9.4-12.5 Dec 18, 2024 12:16 PM [facility] BASIC METABOLIC PANEL+MG Specimen Type: PLASMA No comment entered. Ordering Provider: BENIGNO KIM A Report Released Date/Time: Sep 27, 2024 10:57 AM Reporting Lab: [facility] [address] Performing Lab: [facility] [address] CREATININE 1.0 mg/dL 0.7-1.2 UREA NITROGEN 19 [...] Sep 27, 2024 10:57 AM Reporting Lab: [facility] [address] Performing Lab: [facility] [address] WBC 9.5 4.0-11.0 RBC 5.05 4.60-6.20 HGB [...] Source Jan 10, 2025 08:57 PM 6 [facility] Jan 10, 2025 07:57 PM 7 [facility] Jan 10, 2025 05:58 PM 187.8 27 [facility] Jan 10, 2025 09:21 AM 186 27 [facility] Jan 10, 2025 09:20 AM 98 61 128/73 16 98 7 [facility] Social History: Smoking Status [...] this document. The data comes from all [facility]. Date Advance Directives Provider Source March 08, 2023 ADVANCE DIRECTIVE ODILIA CHRISTIANSON [facility] May 02, 2014 ADVANCE DIRECTIVE DISCUSSION QUEENIE SAENZ [facility] May 24, 2013 CLINICAL WARNING GALINDO STUART [facility] Sep 21, 2011 ADVANCE DIRECTIVE JORDAN ZHANG [facility] Radiology Reports: +/- 30 days of the [...] AM SHOULDER RIGHT 2-3 VIEWS: KEENA ROSA [id number] -1955 M Exm Date: JAN 10, 2025@07:58 Req Phys: SHELLI KIM Loc: OR-PACU/01-10-2025@15:42 Img Loc: MAIN X-RAY Service: [place] [address] (Case [id number] COMPLETE) SHOULDER RIGHT 2-3 VIEWS (RAD Detailed) CPT:15225 Proc Modifiers : PORTABLE EXAM, OPERATING ROOM EXAM Reason for Study: right reverse TSA Clinical History: OR 6 shoulder rotator cuff arthropathy My pager number on record is: . I confirm that the pager number/cell phone number above is correct for reporting critical results. My correct contact # for critial results is:Valerio KIM [phone] Trainees only: Enter your staff provider's info here: LAST CREATININE 1.0 (12/18/24) Report Status: Verified Date Reported: JAN 10, 2025 Date Verified: JAN 10, 2025 [employer] E-Sig:/ES/MIRANDA BROOKE MD Report: EXAMINATION: SHOULDER RIGHT 2-3 VIEWS 01/10/2025 7:58 AM INDICATION: right reverse TSA Impression: Right reverse TSA. Components appear well seated. Report Sign Date/Time: 01/10/2025 3:39 PM Primary Interpreting Staff: MIRANDA BROOKE MD, RADIOLOGIST ([employer]) /RTS MIRANDA BROOKE [facility]
--- OUTSIDE RECORDS SUMMARY | 2025-01-16 08:09 | XMS_ITS | Encounter Summary ---
Author Name Department of Veter[place] ns Affairs [place] Organization [facility] [place] Address [address] [place] [address] Care Team Providers Care Auto Refinisher Name Role Phone ZENY MARTIN Primary Care [...] PART A Oct 18, 2013 PART A [id number] Mary ROSA PATIENT MEDICARE (WNR) MEDICARE (M) PART B Oct 18, 2013 PART B [id number] Mary ROSA EORODNEY PATIENT MEDICARE (WNR) MEDICARE (M) PART A Oct 18, 2013 PART A [id number] [phone] Mary ROSA PATIENT Selected Encounter This section includes the information on record at [place] for the Encounter. Date/Time Encounter Type Encounter Description Reason Provider Source Nov 15, 2024 01:30 PM ORTHOTIC MGMT&TRAING 1ST ENC PROSTHETICS/ORTHOT ICS ICD-10-CM M25.562 Pain in left knee ORLY WEBBER Encounter Template Text not used by [place] Assessments - Encounter Diagnoses This section includes the primary and secondary diagnoses documented for the Encounter. Date/Time Primary/Secondary Diagnosis Diagnosis Name Provider Source Nov 15, 2024 01:54 PM PRIMARY Pain in left knee ORLY WEBBER [facility] Plan of Treatment: Future Appointments (+ 6 months) and Future Tests (+/- 45 days) The Plan of Treatment section includes future care activities for the patient from all [place] [facility]. This section includes future appointments and future orders which are active, pending or scheduled. Future Appointments This section includes appointments that were scheduled to occur 6 months from the date of the Encounter, up to a maximum of 20 appointments. The data comes from all [place] treatment facilities. Appointment Date/Time Appointment Type Appointme nt Facility Name Nov 30, 2024 10:00 AM AM[place]UL[place]ORY - [place] [facility] Dec 07, 2024 08:45 AM AMBUL[place]ORY - NONE [place] [facility] Dec 14, 2024 10:00 AM [place]UL[place]ORY - [place]IC[place] [facility] Dec 18, 2024 07:00 AM AM[place]UL[place]ORY - NONE [place] [facility] Dec 18, 2024 01:00 PM AMBUL[place]ORY - NONE [place] [facility] Dec 18, 2024 01:15 PM [place] [facility] Dec 18, 2024 01:45 PM [place]UL[place] [facility] Dec 18, 2024 02:00 PM [facility] [place] [facility] Dec 18, 2024 02:30 PM [facility] Dec 19, 2024 11:00 AM AMBULATORY - REHAB MEDICIN E [facility] Dec 27, 2024 07:00 AM [place]ORY - N[place] [facility] Dec 28, 2024 10:00 AM [place]IC[place] [facility] Dec 28, 2024 11:00 AM AMBULATORY - REHAB MEDICIN E [facility] Jan 01, 2025 01:30 PM AMBULATORY - REHAB MEDICIN E [facility] Jan 24, 2025 01:00 PM [place]UL[place] - [place] [facility] Jan 25, 2025 10:00 AM AM[place]ORY - [place]IC[place] [facility] Jan 25, 2025 11:00 AM AMBULATORY - REHAB MEDICIN E [facility] Feb 01, 2025 10:00 AM [place]IC[place] [facility] Feb 01, 2025 11:00 AM [facility] Feb 08, 2025 10:00 AM AMBULATORY - [...] of theEncounter. The data comes from all [place] treatment facilities. Test Date/Time Test Type Test Details Facility Name Dec 11, 2024 11:04 AM Consult Order PT PHYSICA L THERAPY OUTPT ORTHO SURGERY Cons [place] [employer] [facility] Social History: Smoking Status [...] 15 YRS OR MORE [facility] Tobacco Use History This [...] this document. The data comes from all [place] facilities. Date Advance Directives Provider Source March 08, 2023 ADVANCE DIRECTIVE ODILIA CHRISTIANSON [facility] May 02, 2014 ADVANCE DIRECTIVE DISCUSSION QUEENIE SAENZ [facility] May 24, 2013 CLINICAL WARNING NARCISOGALINDO [facility] Sep 21, 2011 ADVANCE DIRECTIVE JORDAN ZHANG [facility] Encounter Notes: All associated encounter notes This section contains the clinical notes associated to the Encounter. Date/Time Encounter Note(s) Provider Source Nov 15, 2024 01:47 PM ORTHOTICS PROSTHET ICS CONSULT: LOCAL TITLE: PROSTHETICS CONSULT STANDARD TITLE: ORTHOTICS PROSTHETICS CONSULT DATE OF NOTE: NOV 15, 2024@13:47 ENTRY DATE: NOV 15, 2024@13:47:19 AUTHOR: ORLY WEBBER EXP COSIGNER: URGENCY: STATUS: COMPLETED Provisional Diagnosis: Pain in left Knee(ICD-10-CM M25.562) Reason For Request: Brace Outpatient Left knee brace. ASSESSMENT: presented in clinic with orders to receive knee brace. The was then measured evaluated . The has lost significant weight and would benefit with having stapps at 5 areas to hold Side: LEFT Thigh:15 1/2 Knee Center:15 Calf:13 1/2 Size: SMALL EDUCATION: Education was provided to patient during this encounter. Patient indicated readiness to learn about educational information re: the following topics: donning/doffing, wash/care instructions, how to report a concern. Patient indicates readiness to learn, verbalizes understanding, agreement and satisfaction with the treatment plan. Denies further questions. If necessary, patient to be rescheduled upon receipt or completed fabrication of ordered item(s)/device(s). PLEASE CREATE PO AND ORDER FROMS [facility]PS: QTY:1 Fusion Knee Brace Email [phone] Supplier: [employer] WORKMAN: FARIDEH [employer]its[employer] Availability: In Stock /kyle/ ORLY WEBBER [employer] Faculty Member (Charhouse Worker) Signed: 11/15/2024 13:54 ORLY WEBBER [facility]
--- OUTSIDE RECORDS SUMMARY | 2025-01-16 08:09 | XMS_ITS | Encounter Summary ---
Author Name [facility] [place] [facility] [place] Address [address] [place] [address] Care Team Providers Care Cnc Wood Lathe Operator Name Role Phone ZENY MARTIN Primary [...] Member ID Insurance Provider's Telephone Number Policy Herrera's Name Patient's Relationship to Policy Herrera MEDICARE (WNR) MEDICARE (M) PART A Oct 18, 2013 PART A [id number] [phone] Mary ARMENDARIZ PATIENT MEDICARE (WNR) MEDICARE (M) PART B Oct 18, 2013 PART B [id number] [phone] Mary ARMENDARIZ EORODNEY PATIENT MEDICARE (WNR) MEDICARE (M) PART A Oct 18, 2013 PART A [id number] Mary ARMENDARIZ PATIENT Selected Encounter This section includes the information on record at [place] for the Encounter. Date/Time Encounter Type Encounter Description Reason Provider Source Jan 10, 2025 07:59 AM RECONSTRUCT SHOULDER JOINT HOSPITALIZATION ICD-10-CM Z99.81 Dependence on supplemental oxygen RA RAMU KIM IHBandar Encounter Template Text not used by [place] Assessments - Encounter Diagnoses This section includes the primary and secondary diagnoses documented for the Encounter. Date/Time Primary/Secondary Diagnosis Diagnosis Name Provider Source Jan 11, 2025 01:00 PM Diagnosis for Length of Stay Primary osteoarthritis, right shoulder [facility] Jan 11, 2025 01:00 PM SECONDARY Athscl heart disease of [place] coronary artery w/o ang pctrs [facility] Jan 11, 2025 01:00 PM SECONDARY Chronic right heart failure [facility] Jan 11, 2025 01:00 PM SECONDARY Dependence on supplemental oxygen [facility] Jan 11, 2025 01:00 PM SECONDARY Hyperlipidemia, unspecified [facility] Jan 11, 2025 01:00 PM SECONDARY Hypertensive heart disease with heart failure [facility] Jan 11, 2025 01:00 PM SECONDARY Hypothyroidism, unspecified [facility] Jan 11, 2025 01:00 PM SECONDARY Iron deficiency anemia, unspecified [facility] Jan 11, 2025 01:00 PM SECONDARY Lng trm (crnt) use injectable non-insulin antidiabetic drugs [facility] Jan 11, 2025 01:00 PM SECONDARY FCI (current) use of aspirin [facility] Jan 11, 2025 01:00 PM SECONDARY Old myocardial infarction [facility] Jan 11, 2025 01:00 PM SECONDARY Other specified chronic obstructive pulmonary disease [facility] Jan 11, 2025 01:00 PM SECONDARY Presence of aortocoronary bypass graft [facility] Jan 11, 2025 01:00 PM SECONDARY Presence of coronary angioplasty implant and graft [facility] Jan 11, 2025 01:00 PM SECONDARY Type 2 diabetes mellitus with diabetic neuropathy, unsp [facility] Plan of Treatment: Future Appointments (+ 6 months) and Future Tests (+/- 45 days) The Plan of Treatment section includes future care activities for the patient from all [facility]. This section includes future appointments and future orders which are active, pending or scheduled. Future Appointments This section includes appointments that were scheduled to occur 6 months from the date of the Encounter, up to a maximum of 20 appointments. The data comes from all [facility]. Appointment Date/Time Appointment Type Appointme nt Facility Name Jan 24, 2025 01:00 PM AMBULATORY - SURGERY [facility] Jan 25, 2025 10:00 AM AMBULATORY - MEDICINE [facility] Jan 25, 2025 11:00 AM AMBULATORY - REHAB MEDICIN E [facility] Feb 01, 2025 10:00 AM AMBULATORY - MEDICINE [facility] Feb 01, 2025 11:00 AM [facility] Feb 08, 2025 10:00 AM [facility] February 22, 2025 10:00 AM [facility] February 23, 2025 11:00 AM AMBULATORY - NONE [facility] February 23, 2025 11:30 AM AMBULATORY - SURGERY [facility]RICIA [facility] March 08, 2025 10:00 AM AMBULATORY - MEDICINE [facility] Apr 09, 2025 01:00 PM [facility] Active, Pending, and Scheduled Orders This section includes a listing of several types of active, pending, and scheduled orders, including clinic medications orders, diagnostic test orders, procedure orders and consult orders; where the start date of the order is 45 days before the date of the Encounter or 45 days after the date of theEncounter. The data comes from all [place] treatment facilities. Test Date/Time Test Type Test Details Facility Name Dec 11, 2024 11:04 AM Consult Order PT PHYSICA L THERAPY OUTPT ORTHO SURGERY [facility] Jan 10, 2025 12:00 AM Laboratory - Blood Bank Order TYPE & SCREEN - LAB BLOOD WC [facility] Jan 12, 2025 08:18 AM Consult Order [facility] Jan 22, 2025 12:00 AM Laboratory - Chemi stry Order HEMOGLOBIN A1C BLOOD SP ONCE [facility] Jan 22, 2025 12:00 AM Laboratory - Chemi stry Order BASIC METABOLIC PANEL+MG PLASMA SP [facility] February 23, 2025 11:00 AM Imaging - General Radiology Order SHOULDER RIGHT 2-3 VIEWS RIGHT [facility] Surgical Procedures: All associated to the encounter This section includes all Surgical Procedures and Surgical Procedure Notes associated to the Encounter. Surgical Procedures This section includes all Surgical Procedures associated to the Encounter. Surgical Procedure Date/Time Procedure Procedure Type Procedure Qualifiers Provider Source Jan 10, 2025 11:35 AM Right reverse TSA RECONSTRUCT SHOULDER JOINT Other Procedure CPT Code(s): GR-SERVICE BY [facility] RESIDENT, RT-RIGHT SIDE RA RAMU KIM [facility] Surgical Notes This section includes all Surgical Notes associated to the Procedure. Date/Time Jan 10, 2025 11:35 AM OPERATIVE REPORT: LOCAL TITLE: OPERATION REPORT STANDARD TITLE: OPERATIVE REPORT DATE OF NOTE: JAN 10, 2025@11:35 ENTRY DATE: JAN 10, 2025@14:30:35 SURGEON: BARBARA WOLF ATTENDING: GRISELDA KIM URGENCY: STATUS: COMPLETED SUBJECT: Case #: [id number] PREOPERATIVE DIAGNOSES: 1. Right shoulder rotator cuff arthropathy. 2. H/o COPD on baseline O2. 3. H/o CAD. POSTOPERATIVE DIAGNOSES: 1. Right shoulder rotator cuff arthropathy. 2. H/o COPD on baseline O2. 3. H/o CAD. OPERATIONS PERFORMED: Right reverse total shoulder arthroplasty with biceps tenodesis. ATTENDING SURGEON: Griselda Kim MD RESIDENT SURGEON: Barbara Wolf MD. G5 ANESTHESIA: General with peripheral block by Anesthesia. ESTIMATED BLOOD LOSS: 50 cc, SPECIMENS REMOVED: None. FINDINGS: Extensive osteoarthritis including wear and osteophytes. Intact biceps tendon but frayed. Intact subscap and repaired at end of case. IMPLANTS: 1. Univers reverse modular glenoid system, glenosphere, 36, +4 lateralized. 2. Univers reverse modular glenoid system, central post, modular, 20 mm. 3. Univers reverse modular glenoid system baseplate, modular, 24 mm, +2 lateralized, with full oblique 10-degree augment. 4. Univers reverse modular glenoid system peripheral screw, nonlocking 4.5 x 28 mm and 4.5 x 24 mm. 5. Univers reverse modular glenoid system peripheral screw, locking 5.5 x 16 mm and 5.5 x 20 mm. 6. Univers reverse humeral liner 36, +3. 7. Univers revers [place] humeral stem, size 9. 8. Univers reverse suture cup 36, +2 R. INDICATION FOR OPERATION: 69-year-old male with extensive past medical history with chronic right shoulder pain in the setting of full-thickness tears to the supraspinatus/infraspina tus with significant atrophy. Patient trialed extensive conservative therapy in the form of activity modification, physical therapy, subacromial injections with insufficient relief. Patient with ongoing pain impacting his overall quality of life. After discussion of the risks, benefits, and alternatives to treatment, he elected to proceed with a right reverse total shoulder arthroplasty. DESCRIPTION OF OPERATION: The patient was met in the preoperative holding area and the signed consent was reviewed and the correct side was marked. Anesthesia performed a peripheral block - please see their dictation for details. He was brought into the operating room theater where a brief was performed. General anesthesia was induced. He was placed in a beach chair position and the head was placed in a hogshead opener with the neck in neutral position. The right upper extremity was prepped and draped in a standard sterile fashion. A timeout was performed identifying the correct patient, site and procedure. All in the room agreed. An incision was made from the coracoid down to the mid humerus, approximately 11 cm in length. The cephalic vein was identified, mobilized, and retracted laterally, allowing visualization of the deltopectoral interval. The deltopectoral interval was mobilized bluntly. The subdeltoid adhesions were freed and the clavipectoral fascia was identified. The clavipectoral fascia was freed up allowing identification of the superior border of the pectoralis major tendon. At its bony insertion, the long head of the biceps tendon was palpable. The overlying fascia/soft tissue was released with electrocautery and the biceps tendon was delivered into the wound with the use of a 90-degree clamp. 1.5 cm of the pectoralis major tendon was released with electrocautery to provide further exposure of the biceps tendon. A soft tissue biceps tenodesis with fiberwire suture was performed to the pectoralis major tendon and biceps tendon was tenotomized proximally. The biceps tendon was followed proximally and the bicipital groove was opened with electrocautery until its proximal most aspect as it entered the shoulder joint; it was then truncated. The coracoacromial ligament was identified and a retractor was placed under the CA ligament to better allow visualization of the subscapularis and rotator interval. Anterior circumflex humeral vessels were identified, ligated, and divided with electrocautery. The arm was externally rotated. A subscapularis peel was performed with the use of electrocautery, starting just medial to the bicipital groove; it was tagged with two fiberwire sutures and released medially to allow better exposure of the glenohumeral articulation and the overlying capsule. Capsule was released inferiorly and posteriorly to better allow external rotation and better visualization of the humeral head. The humeral head was delivered. The starting reamer was used to gain access to the intramedullary canal. An intramedullary guide omid was reamed at the anatomic neck in line with the humeral intramedullary canal. Sequential hand reaming was performed until a size 6/7 had good fit. 135-degree cutting jig and 30 degrees of retroversion was applied and the humeral head cut was performed followed by application of a humeral protector. Attention was then turned towards the glenoid. A Fukuda retractor was placed about the posterior aspect of the glenoid to retract the humerus out of the way. A Batman retractor was placed anterosuperiorly. The remaining labrum, capsule, and rotator cuff that was interposed between our exposure and glenoid was removed with electrocautery. At this time, we were struggling with posterior glenoid exposure and thus the retractors were removed and the humerus was recut, taking an additional 2-3 mm of bone. The center of the glenoid was identified with the help of a custom guide and a center guidepin was placed slightly inferiorly. The pin was advanced, drilled, and tapped. The boot was used to assess the size of the baseplate that would be appropriate. A 36 mm would fit well with slight anterior overhang. The glenoid was then reamed for placement of a 24 mm modular baseplate with a central post. The offset reamer was used and positioned so that the planned 10-degree oblique augment could be positioned posteriorly (at 9 o'clock on the glenoid). The final baseplate was impacted into place and was confirmed to be flush with a freer elevator. Two non-locking screws were placed superior and inferior in the baseplate. Two locking screws were then placed anterior and posterior in the baseplate. We attempted to place the glenosphere but again the humerus was in the way. An additional 2 mm of humerus was resected and the medium protector replaced. Now, A 36, +4 lateralized glenosphere was placed without issue. Central screw was then placed and seated, confirming appropriate position of the glenosphere and tighted to 4 merrill/meters. Attention was turned back to the humerus. The humerus was sequentially broached up to a size 9 which had good fit. This was implanted deep and reamed with a circular reamer. An offset trial neck/cup +3 lateralization were placed and the humerus was reduced. An examination under anesthesia assessing the patient's stability to anterior/posterior shaft and full range of motion with forward elevation, abduction/internal rotation, abduction, and external rotation were performed with great stability. The shoulder was re-dislocated. The trial components were removed and 3 tunnels were made with a 2.0 drill bit. Two fiberwires were passed for the subscapularis repair and clamped. The final implants were placed. Irrisept and betadine were both used to irrigate the wound thoroughly. The shoulder again demonstrated excellent ROM with forward flexion, external rotation, and interal rotation to the contralateral shoulder without impingement and stability. The wound was irrigated thoroughly with sterile saline. The subscapularis was repaired with the two #2 FiberWire sutures that had been placed previously in the humeral shaft. The tails of the fiberwire were then used to repair the rotator interval. Vancomycin powder was placed and a layered closure was performed with the deltopectoral interval approximated with 0 stratafix in a running fashion. The deep dermis was closed with 2-0 vicryl in an interrupted fashion. The skin was closed with a running 3-0 monocryl. Prineo dressing was placed with an overlying Silverlon dressing. The patient was extubated and awoken in standard fashion. He was transported to the recovery room in stable condition. All counts were correct at the end of the case. Dr. Kim was present for the entirety of the procedure. POSTOPERATIVE PLAN: Non-weightbearing, right upper extremity. Abduction sling to right shoulder. To start PT according to reverse total shoulder arthroplasty PT protocol. Lovenox 30 mg twice daily in-house and discharge on Aspirin x6 weeks for deep venous thrombosis prophylaxis. Keep on supplemental O2 inpatient (on home O2 at baseline). Full medical comanagement appreciated, given comorbidities. PT and OT prior to discharge. Follow-up at two weeks and then six weeks with x-rays. Postoperative films showed Glenosphere in good position without acute fractures or dislocations. /kyle/ BARBARA WOLF MD RESIDENT Signed: 01/11/2025 07:19 /kyle/ GRISELDA KIM MD STAFF SURGEON Cosigned: 01/11/2025 07:44 BARBARA WOLF Jan 10, 2025 11:35 AM SURGERY NURSING OPERATIVE NOTE: LOCAL TITLE: NURSE INTRAOPERATIVE REPORT STANDARD TITLE: SURGERY NURSING OPERATIVE NOTE DATE OF NOTE: JAN 10, 2025@11:35 ENTRY DATE: JAN 10, 2025@14:30:35 AUTHOR: GODWIN VIZCARRA COSIGNER: URGENCY: STATUS: COMPLETED SUBJECT: Case #: [id number] Operating Room: OR6 Surgical Priority: ELECTIVE Patient in Hold: NOT ENTERED Patient in OR: JAN 10, 2025 11:35 Operation Begin: JAN 10, 2025 12:17 Operation End: JAN 10, 2025 14:25 Patient Out OR: JAN 10, 2025 14:30 Major Operations Performed: Primary: Right reverse TSA Robotic Assistance (Y/N): NO Wound Classification: CLEAN Operation Disposition: HUYNH Discharged Via: STRETCHER Primary Surgeon: GRISELDA KIM Dump Truck Operator: BARBARA WOLF Attending Surgeon: GRISELDA KIM Second Assist: N/A Table Tender Sludge: MARJAN HILLIARD Facility Coordinator Anesth: N/A OR Support Personnel: Scrubbed Circulating SHERMAN RAMIREZ (FULLY TRAINED) GODWIN VIZCARRA (FULLY TRAINED) RICK EDGAR (FULLY TRAINED) Other Persons in OR: GENA CASTILLO-ARTHREX (ARTHREX REP) Preop Mood: RELAXED Preop Consc: ALERT-ORIENTED Preop Skin Integ: INTACT Preop [place]: N/A --- Time Out Checklist --- Confirm Correct Patient Identity: YES Confirm Procedure To Be Performed: YES Confirm Site of the Procedure, Including Laterality: YES Confirm Valid Consent: YES, i-MED Confirm Patient Position: YES Confirm Procedure Site has been Marked Appropriately and that the Site of the Clark is Visible After Prep and Draping: YES Pertinent Medical Images Have Been Confirmed: YES Correct Medical Implant(s) is Available: YES Availability of Special Equipment: YES Appropriate Antibiotic Prophylaxis: YES Appropriate Deep Vein Thrombosis Prophylaxis: YES Blood Availability: NOT INDICATED Checklist Comment: NO COMMENTS ENTERED Time-Out Document Completed By: GODWIN VIZCARRA Time-Out Completed: JAN 10, 2025@12:13 Skin Prep By: BARBARA WOLF Skin Prep Agent: HIBICLENS Skin Prep By (2): RICK EDGAR 2nd Skin Prep Agent: CHLORAPREP Preop Surgical Site Hair Removal by: N/A Surgical Site Hair Removal Method: NO HAIR REMOVED Hair Removal Comments: NO COMMENTS ENTERED Surgery Position(s): Cameron's - Beach Chair (Modified sitting)Placed: N/A Electrocautery Unit: [id number] ESU Coagulation Range: 0-40 ESU Cutting Range: 0-40 Electroground Position(s): RIGHT ANT THIGH Anesthesia Technique(s): GENERAL Prosthesis Installed: Item: REV SHOULDER PLATE Implant Sterility Checked (Y/N): YES Sterility Expiration Date: APR 16, 2029 RN Assembly Machine Tender: GODWIN VIZCARRA Vendor: [employer] Model: [id number] Lot Number: [id number] Serial Number: modular post baseplate MGS Sterile Resp: BRUSH OPERATOR Size: 20mm Quantity: 1 Provider Read Back Performed: YES Item: REV SHOULDER PLATE Implant Sterility Checked (Y/N): YES Sterility Expiration Date: FEB 14, 2029 RN Assembly Machine Tender: GODWIN VIZCARRA Vendor: [employer] Model: [id number] Lot Number: [id number] Serial Number: 10 full augment +2 lat oblique Sterile Resp: BRUSH OPERATOR Size: 24mm baseplate Quantity: 1 Provider Read Back Performed: YES Item: REV SHOULDER SCREW Implant Sterility Checked (Y/N): YES Sterility Expiration Date: JAN 15, 2029 RN Assembly Machine Tender: GODWIN VIZCARRA Vendor: [employer] Model: [id number] Lot Number: [id number] Serial Number: PERIPHERAL SCREW,NON-LOCKING Sterile Resp: BRUSH OPERATOR Size: 4.5 x 28 mm Quantity: 1 Provider Read Back Performed: YES Item: REV SHOULDER SCREW Implant Sterility Checked (Y/N): YES Sterility Expiration Date: APR 16, 2028 RN Assembly Machine Tender: GODWIN VIZCARRA Vendor: [employer] Model: [id number] Lot Number: [id number] Serial Number: PERIPHERAL SCREW,NON-LOCKING Sterile Resp: BRUSH OPERATOR Size: 4.5 x 24 mm Quantity: 1 Provider Read Back Performed: YES Item: REV SHOULDER SCREW Implant Sterility Checked (Y/N): YES Sterility Expiration Date: JUN 17, 2029 RN Assembly Machine Tender: CARMITAGODWIN Carpenter Vendor: [employer] Model: [id number] Lot Number: [id number] Serial Number: PERIPGERAL SCREW,LOCKING Sterile Resp: BRUSH OPERATOR Size: 5.5 X 16 MM Quantity: 1 Provider Read Back Performed: YES Item: REV SHOULDER SCREW Implant Sterility Checked (Y/N): YES Sterility Expiration Date: JAN 15, 2029 RN Assembly Machine Tender: CARMITAGODWIN A Vendor: [employer] Model: [id number] Lot Number: [id number] Serial Number: PERIPHERAL SCREW,LOCKING Sterile Resp: BRUSH OPERATOR Size: 5.5 X 20 mm Quantity: 1 Provider Read Back Performed: YES Item: GLENOSPHERE Implant Sterility Checked (Y/N): YES Sterility Expiration Date: MAY 17, 2029 RN Assembly Machine Tender: GODWIN VIZCARRA Vendor: [employer] Model: [id number] Lot Number: [id number] Serial Number: MODULAR GLENOID SYSTEM Sterile Resp: BRUSH OPERATOR Size: 36+4LAT/24 Quantity: 1 Provider Read Back Performed: YES Item: SHOULDER, HUMERAL STEM IMPLANT Implant Sterility Checked (Y/N): YES Sterility Expiration Date: APR 16, 2028 RN Assembly Machine Tender: GODWIN VIZCARRA Vendor: [employer] Model: [id number] Lot Number: [id number] Serial Number: NA Sterile Resp: BRUSH OPERATOR Size: 9 Quantity: 1 Provider Read Back Performed: YES Item: UNLISTED IMPLANT Implant Sterility Checked (Y/N): YES Sterility Expiration Date: APR 16, 2029 RN Assembly Machine Tender: GODWIN VIZCARRA Vendor: [employer] Model: [id number] Lot Number: [id number] Serial Number: SUTURE CUP Sterile Resp: BRUSH OPERATOR Size: 36, +2,RIGHT Quantity: 1 Provider Read Back Performed: YES Item: REV HUMERAL Implant Sterility Checked (Y/N): YES Sterility Expiration Date: MARCH 17, 2029 RN Assembly Machine Tender: GODWIN VIZCARRA Vendor: [employer] Model: [id number] Lot Number: [id number] Serial Number: HUMERAL INSERT Sterile Resp: BRUSH OPERATOR Size: SMALL,36, +3 Quantity: 1 Provider Read Back Performed: YES Medications: VANCOMYCIN 1GM INJ Time Administered: JAN 10, 2025 12:15 Route: TOPICAL Dosage: 1 G Ordered By: GRISELDA KIM Admin By: GRISELDA KIM Comments: DISPENSED TO STERILE FIELD BUPIVACAINE 0.25% 30ML (PF) INJ Time Administered: JAN 10, 2025 12:15 Route: INFILTRATE Dosage: 20 ML Ordered By: GRISELDA KIM Admin By: GRISELDA KIM Comments: DISPENSED TO STERILE FIELD Irrigation Solution(s): SURGIPHOR Time Used: JAN 10, 2025 12:28 Amount: per md Provider: GRISELDA KIM IRRISEPT Time Used: JAN 10, 2025 12:28 Amount: per md Provider: GRISELDA KIM Possible Item Retention: * NOT ENTERED * Sponge Final Count Correct: YES Sharps Final Count Correct: YES Instrument Final Count Correct: NOT APPLICABLE Wound Sweep: YES Wound Sweep Comment: PERFORMED BY SURGEON PRIOR TO WOUND CLOSURE Intra-Operative X-Ray: YES Intra-Operative X-Ray Comment: INTRAOPERATIVE XRAY PERFORMED PER HOSPITAL POLICY, NO RETAIN SURGICAL INSTRUMENTS VERIFIED BY SURGEON Counter: SHERMAN RAMIREZ Counts Verified By: GODWIN VIZCARRA Dressing: PRINEO,SILVERLON,SLINGSH OT Blood Loss: 50 ml Urine Output: Postoperative Mood: RELAXED Postoperative Consciousness: RESTING Postoperative Skin Integrity: FRESH INCISION Sequential Compression Device: YES Immediate Use Steam Sterilization Episodes: Contamination: 0 SPS Processing/OR Management Issues: 0 Emergency Case: 0 No Better Option: 0 Loaner or Short Notice Instrument: 0 Decontamination of Instruments Contaminated During the Case: 0 Nursing Care Comments: SEE CPRS NOTES /es/ GODWIN VIZCARRA RN OR Signed: 01/10/2025 14:35 GODWIN VIZCARRA Lab Results: +/- 30 days of the [...] Range Comment Jan 11, 2025 12:21 PM [facility] FINGERSTICK GLUCOSE Specimen Type: BLOOD Comment: Save Result Nurse Notified Ordering Provider: BARBARA WOLF Report Released Date/Time: Jan 11, 2025 12:51 PM Reporting Lab: [facility] [id number] Performing Lab: [facility] [id number] FINGERSTICK GLUCOSE 246 mg/dL H 70-100 Jan 11, 2025 07:37 AM [facility] CBC Specimen Type: BLOOD No comment entered. Ordering Provider: BARBARA WOLF Report Released Date/Time: Jan 10, 2025 02:40 PM Reporting Lab: [facility] [id number] Performing Lab: [facility] [id number] WBC 9.7 4.0-11.0 RBC 4.50 L 4.60-6.20 HGB 12.9 g/dL L 13.5-17.9 HCT 42.3 41.0-54.0 MCV 94.0 fL 80.0-100.0 MCH 28.7 pg 27.0-33.0 MCHC 30.5 g/dL L 32.0-37.5 PLT 174 150-400 MPV 11.5 fL 9.1-13.0 RDW 13.3 11.5-14.5 Jan 11, 2025 07:37 AM [facility] BASIC METABOLIC PANEL+MG Specimen Type: PLASMA No comment entered. Ordering Provider: BARBARA WOLF Report Released Date/Time: Jan 10, 2025 02:40 PM Reporting Lab: [facility] [id number] Performing Lab: [facility] [id number] CREATININE 1.0 mg/dL 0.7-1.2 UREA NITROGEN 21 mg/dL 8-26 GLUCOSE 203 mg/dL H 70-100 SODIUM 136 mmol/L 136-145 POTASSIUM 4.1 mmol/L 3.5-5.1 CHLORIDE 102 mmol/L 98-107 CO2 23 mmol/L 22-29 CALCIUM 8.8 mg/dL 8.4-10.2 MAGNESIUM 2.0 mg/dL 1.6-2.6 ANION GAP 11 mmol/L 5-15 .CREAT EGFR(CKD-EPI) 80 >60 Jan 11, 2025 06:10 AM [facility] FINGERSTICK GLUCOSE Specimen Type: BLOOD Comment: Save Result Nurse Notified Ordering Provider: Lilli CHRISTENSEN Report Released Date/Time: Jan 11, 2025 07:41 AM Reporting Lab: [facility] [id number] Performing Lab: [facility] [phone] FINGERSTICK GLUCOSE 220 mg/dL H 70-100 Jan 10, 2025 08:11 PM [facility] FINGERSTICK GLUCOSE Specimen Type: BLOOD Comment: Save Result Nurse Notified Ordering Provider: Lilli CHRISTENSEN Report Released Date/Time: Jan 10, 2025 08:36 PM Reporting Lab: [facility] [phone] Performing Lab: [facility] [phone] FINGERSTICK GLUCOSE 239 mg/dL H 70-100 Jan 10, 2025 04:30 PM [facility] FINGERSTICK GLUCOSE Specimen Type: BLOOD Comment: Save Result Nurse Notified Ordering Provider: Lilli CHRISTENSEN Report Released Date/Time: Jan 10, 2025 05:34 PM Reporting Lab: [facility] [phone] Performing Lab: [facility] [phone] FINGERSTICK GLUCOSE 190 mg/dL H 70-100 Jan 10, 2025 02:40 PM [facility] FINGERSTICK GLUCOSE Specimen Type: BLOOD Comment: Save Result Nurse Notified Ordering Provider: BENIGNO KIM A Report Released Date/Time: Jan 10, 2025 03:01 PM Reporting Lab: [facility] [phone] Performing Lab: [facility] [phone] FINGERSTICK GLUCOSE 183 mg/dL H 70-100 Jan 10, 2025 08:35 AM [facility] ACT PART THROMBO TIME Specimen Type: PLASMA Comment: ~Draw on admission. Call IV team to draw on admission. Ordering Provider: BENIGNO KIM A Report Released Date/Time: Jan 10, 2025 08:01 AM Reporting Lab: [facility] [phone] Performing Lab: [facility] [phone] APTT 31.4 s 25.1-36.5 Jan 10, 2025 08:35 AM [facility] PROTHROMBIN TIME/INR Specimen Type: PLASMA Comment: ~Draw on admission. Call IV team to draw on admission. Ordering Provider: BENIGNO KIM A Report Released Date/Time: Jan 10, 2025 08:01 AM Reporting Lab: [facility] [phone] Performing Lab: [facility] [address] .INR 0.9 0.8-1.1 .PT 10.9 s 9.4-12.5 Jan 10, 2025 08:35 AM [facility] CBC Specimen Type: BLOOD No comment entered. Ordering Provider: BENIGNO KIM A Report Released Date/Time: Jan 10, 2025 08:01 AM Reporting Lab: [facility] [phone] Performing Lab: [facility] [address] WBC 6.6 4.0-11.0 RBC 5.00 4.60-6.20 HGB 14.5 g/dL 13.5-17.9 HCT 46.1 41.0-54.0 MCV 92.2 fL 80.0-100.0 MCH 29.0 pg 27.0-33.0 MCHC 31.5 g/dL L 32.0-37.5 PLT 172 150-400 MPV 10.9 fL 9.1-13.0 RDW 13.7 11.5-14.5 Jan 10, 2025 08:35 AM [facility] BASIC METABOLIC PANEL+MG Specimen Type: PLASMA No comment entered. Ordering Provider: BENIGNO KIM A Report Released Date/Time: Jan 10, 2025 08:01 AM Reporting Lab: [facility] [phone] Performing Lab: [facility] [phone] CREATININE 0.9 mg/dL 0.7-1.2 UREA NITROGEN 19 mg/dL 8-26 GLUCOSE 151 mg/dL H 70-100 SODIUM 138 mmol/L 136-145 POTASSIUM 3.9 mmol/L 3.5-5.1 CHLORIDE 106 mmol/L 98-107 CO2 23 mmol/L 22-29 CALCIUM 9.3 mg/dL 8.4-10.2 MAGNESIUM 2.0 mg/dL 1.6-2.6 ANION GAP 9 mmol/L 5-15 .CREAT EGFR(CKD-EPI) >90 >60 Jan 10, 2025 08:35 AM [facility] FINGERSTICK GLUCOSE Specimen Type: BLOOD Comment: Save Result Ordering Provider: BENIGNO KIM A Report Released Date/Time: Jan 10, 2025 10:31 AM Reporting Lab: [facility] [phone] Performing Lab: [facility] [phone] FINGERSTICK GLUCOSE 155 mg/dL H 70-100 Dec 18, 2024 12:16 PM [facility] ALBUMIN Specimen Type: PLASMA No comment entered. Ordering Provider: BENIGNO KIM A Report Released Date/Time: Sep 27, 2024 10:57 AM Reporting Lab: [facility] [phone] Performing Lab: [facility] [phone] ALBUMIN 4.4 g/dL 3.5-5.0 Dec 18, 2024 12:16 PM [facility] HEMOGLOBIN A1C Specimen Type: BLOOD Comment: [...] Sep 27, 2024 10:57 AM Reporting Lab: [facility] [phone] Performing Lab: [facility] [phone] HEMOGLOBIN A1C 7.1 H 4.0-6.0 Dec 18, 2024 12:16 PM [facility] PROTHROMBIN TIME/INR Specimen Type: PLASMA No comment entered. Ordering Provider: BENIGNO KIM Report Released Date/Time: Sep 27, 2024 10:57 AM Reporting Lab: [facility] [phone] Performing Lab: [facility] [phone] .INR 0.9 0.8-1.1 .PT 10.3 s 9.4-12.5 Dec 18, 2024 12:16 PM [facility] BASIC METABOLIC PANEL+MG Specimen Type: PLASMA No comment entered. Ordering Provider: BENIGNO KIM Report Released Date/Time: Sep 27, 2024 10:57 AM Reporting Lab: [facility] [phone] Performing Lab: [facility] [phone] CREATININE 1.0 mg/dL 0.7-1.2 UREA NITROGEN 19 mg/dL 8-26 GLUCOSE 118 mg/dL H 70-100 SODIUM 139 mmol/L 136-145 POTASSIUM 4.1 mmol/L 3.5-5.1 CHLORIDE 104 mmol/L 98-107 CO2 25 mmol/L 22-29 CALCIUM 9.6 mg/dL 8.4-10.2 MAGNESIUM 2.1 mg/dL 1.6-2.6 ANION GAP 10 mmol/L 5-15 .CREAT EGFR(CKD-EPI) 80 >60 Dec 18, 2024 12:16 PM [facility] CBC & DIFF Specimen Type: BLOOD Comment: Automated Differential Performed Ordering Provider: BENIGNO KIM Report Released Date/Time: Sep 27, 2024 10:57 AM Reporting Lab: [facility] [phone] Performing Lab: [facility] [address] WBC 9.5 4.0-11.0 RBC 5.05 4.60-6.20 HGB [...] 10, 2025 08:57 PM 6 [facility] Jan 10, 2025 07:57 PM 7 [facility] Jan 10, 2025 05:58 PM 187.8 27 [facility] Jan 10, 2025 09:21 AM 186 27 [facility] Jan 10, 2025 09:20 AM 98 61 128/73 16 98 7 [facility] Social History: Smoking Status (Most [...] 19, 2023 08:00 AM VA-TOBACCO FORMER USER [facility] Tobacco Use History This section includes a history of the smoking, or tobacco-related health factors, that were collected on or before the date of the Encounter. The data comes from the [place] facility where the Encounter took place. Date/Time Smoking Status/Tobacco Use Comment F acility Nov 19, 2023 08:00 AM VA-TOBACCO QUIT 15 YRS OR MORE [facility] Jan 28, 2023 09:45 AM VA-TOBACCO FORMER USER [facility] Jan 28, 2023 09:45 AM VA-TOBACCO QUIT 15 YRS OR MORE [facility] Oct 30, 2021 03:00 PM VA-TOBACCO FORMER USER [facility] Oct 30, 2021 03:00 PM VA-TOBACCO QUIT 5 TO < 15 YRS [facility] Aug 17, 2019 11:38 AM VA-TOBACCO FORMER USER [facility] Aug 17, 2019 11:38 AM VA-TOBACCO QUIT 5 TO < 15 YRS [facility] Jan 06, 2018 02:39 PM FORMER TOBACCO USER 7Y OR GREATE R [facility] Jan 28, 2017 12:47 PM FORMER TOBACCO USER 7Y OR GREATE R [facility] Jan 21, 2016 03:04 PM FORMER TOBACCO USER 7Y OR GREATE R [facility] Apr 02, 2015 02:05 PM FORMER TOBACCO USER 7Y OR GREATE R [facility] March 01, 2014 09:10 AM FORMER TOBACCO USER 7Y OR GREATE R [facility] Sep 18, 2013 09:13 AM CDM COPD TOBACCO NON-USER [facility] May 28, 2013 11:05 AM LIFETIME NON-TOBACCO USER [facility] May 25, 2013 12:08 PM FORMER TOBACCO USER 7Y OR GREATE R [facility] Jun 18, 2009 09:48 AM FORMER TOBACCO USER 7Y OR GREATE R [facility] Aug 24, 2008 10:10 AM FORMER TOBACCO USE >1Y <7Y [facility] Advance Directives: All historical and current Section Date Range: From patient's date of to the date document was created. This section includes ALL of a patient's completed or amended [place] Advance and Rescinded Directives. The entries below indicate that a directive exists for the patient, but an actual copy is not included with this document. The data comes from all [place] facilities. Date Advance Directives Provider Source March 08, 2023 ADVANCE DIRECTIVE ODILIA CHRISTIANSON [facility] May 02, 2014 ADVANCE DIRECTIVE DISCUSSION QUEENIE SAENZ [facility] May 24, 2013 CLINICAL WARNING GALINDO STUART [facility] Sep 21, 2011 ADVANCE DIRECTIVE JORDAN ZHANG [facility] Radiology Reports: +/- 30 days [...] 07:58 AM SHOULDER RIGHT 2-3 VIEWS: KEENA ARMENDARIZ [id number] -[id number] M Exm Date: JAN 10, 2025@07:58 Req Phys: GRISELDA KIM Pat Loc: OR-PACU/01-10-2025@15:42 Img Loc: MAIN X-RAY Service: [place] [address] (Case [id number] COMPLETE) SHOULDER RIGHT 2-3 VIEWS (RAD Detailed) CPT:83866 Proc Modifiers : PORTABLE EXAM, OPERATING ROOM EXAM Reason for Study: right reverse TSA Clinical History: OR 6 shoulder rotator cuff arthropathy My pager number on record is: . I confirm that the pager number/cell phone number above is correct for reporting critical results. My correct contact # for critial results is:Valerio KIM [phone] Trainees only: Enter your staff provider's info here: LAST CREATININE 1.0 (12/18/24) Report Status: Verified Date Reported: JAN 10, 2025 Date Verified: JAN 10, 2025 Assembly Machine Tender E-Sig:/ES/MIRANDA BROOKE MD Report: EXAMINATION: SHOULDER RIGHT 2-3 VIEWS 01/10/2025 7:58 AM INDICATION: right reverse TSA Impression: Right reverse TSA. Components appear well seated. Report Sign Date/Time: 01/10/2025 3:39 PM Primary Interpreting Staff: MIRANDA BROOKE MD, RADIOLOGIST (Assembly Machine Tender) /RTS MIRANDA BROOKE [facility] Encounter Notes: All associated encounter notes This section contains the clinical notes associated to the Encounter. Date/Time Encounter Note(s) Provider Source Jan 11, 2025 01:00 PM DISCHARGE SUMMARY: LOCAL TITLE: Discharge Summary STANDARD TITLE: DISCHARGE SUMMARY DICT DATE: JAN 11, 2025@12:25 ENTRY DATE: JAN 11, 2025@12:26:12 DICTATED BY: MERCEDES ARMENDARIZ ATTENDING: GRISELDA KIM URGENCY: routine STATUS: COMPLETED Orthopedic Discharge Summaries DRAFT UNTIL SIGNED BY ATTENDING Orthopedic Discharge Summary - Total Shoulder Arthroplasty (TSA) Admit Date: JAN 10, 2025@07:59:26 Huynh: OR-PACU DX: RIGHT SHOULDER ARTHRITIS Discharge Date: Dec Present on Admission(POA) Y - Yes, present at the time of inpatient admission. N - No, not present at the time of inpatient admission. W - Clinically undetermined, provider is unable to clinically determine whether condition was present on admission or not. Admission Diagnosis: RIGHT SHOULDER ARTHRITIS POA: Y Principal Discharge Diagnoses: 1. Right reverse total shoulder arthroplasty with biceps tenod POA: Y Procedure: 1. Right Reverse Total Shoulder Arthtoplasty on Dec 2. biceps tenodesis Past Medical History: Active problems - Computerized Problem List is the source for the followin. Diabetic peripheral neuropathy (SNOMED CT 016720813) 2. Sleep apnea (SNOMED CT 89421153) - iVAPS: R: 18, PS: 7-16, EPAP+14, Mirag Quatt Med 3. Severe chronic obstructive pulmonary disease (SNOMED CT 844626752) 4. Personal History of Tobacco Use - Quit 2003, Smoked x 25 years 5. Inguinial Hernia Repair 6. Benign essential hypertension (SNOMED CT 4445691) 7. Erectile dysfunction (SNOMED CT 098549154) 8. Osteoarthrosis involving the spine 9. Hyperlipidemia (SNOMED CT 64301075) 10. Polyp of colon (SNOMED CT 73930179) 11. Open Angle, Primary 12. Morbid obesity (SNOMED CT 738751999) 13. History of adenomatous polyp of colon - By 2008 colonoscopy 14. Hypothyroidism 15. Mild memory disturbance - Due to multiple medical etiologies; Normal NPT 2014 16. History of repair of umbilical hernia 17. Chronic pain following right total knee arthroplasty (SNOMED CT 989578286692 18. Hip pain 19. Iron deficiency anemia 20. Diabetes mellitus type 2 without retinopathy (SNOMED CT 1368419200123) 21. Hypokalemia 22. Obesity 23. Ventricular bigeminy 24. Acute non-ST segment elevation myocardial infarction 25. PVC - premature ventricular contraction (SNOMED CT 730911133) 26. Coronary arteriosclerosis - s/p FRED x1 to RCA (2019) 27. History of radiofrequency ablation operation for arrhythmia - - S/p LV summit PVC ablation 12/22/22 28. Exposure to potentially hazardous substance 29. Exposure to potentially hazardous substance - agent orange Brief History: 69yo male with CAD s/p PCI w/ FRED 03/2020, bradycardia w/ high PVC burden s/p LV summit PVC ablation 12/2022, right-sided HF, HTN, HLD, h/o obesity ( now is s/p 100 lbs + weight loss), DM2, severe COPD on home O2 (2LNC), MARTINEZ on CPAP, hypothyroidism, REYES , OA s/p L KENYON and R TKA, now admitted for Right reverse total shoulder arthroplasty 01/11/[address] Kim. Hospital Course: The patient was admitted for the above stated procedure and for pain control and rehabilitation. The patient: did well post-operatively. The patient: completed a 24 hour course of prophylactic antibiotics DVT prophylaxis was initiated Post-op (POD) #1. Physical therapy was initiated on POD #1. The patient's hemoglobin stabilized at HGB 12.9 L (01/11/25). At the time of discharge the patient was: tolerating a pre-procedure diet and had good pain control with oral pain medications voiding Physical therapy deemed the patient appropriate for discharge to: Home with Family Members Vital signs: Stable Labs reivewed and within expected labs Physical Exam: Constitutional: Normal appearance. No acute distress Neuro: A&O x4 CV: S1S2. Cap refill <3. Bilateral radial pulses +2 Pulm: Regular and non-labored Abd: - flatus Musc: Fires Right Deltoid Right Sensation intact to light touch Axillary, Musculocutaneous, Radial, Ulnar, Median Nerve Right Radial Pulses 2+ Skin: Warm & Dry Discharge Instructions: Pain regimen; Tylenol and lidocaine patches for basal pain management and may take scheduled. Ice 20 minutes every hour. Methocarbamol as needed for muscle pain and spasms. Oxycodone as needed for breakthrough pain. Opioids can be hard on your body and may cause constipation so bowel regimen is ordered. If diarrhea or loose stools occur, may discontinue bowel medications and add them back when needed. You should expect some level of pain. Manage pain with recommended pain regimen, alternating medications as needed so that you are able to have a balance of rest and movement; You should be up walking several times a day, and alternate this with rest. Discussed the importance of CDB & IS use for 2 weeks: 10x/d, 10 breaths each time to prevent infection/pneumonia. Non weight-bearing Pre-procedure diet Ice and elevate extremity as needed DVT prophylaxis of ASA 162mg po daily x6w Keep incision clean and dry No soaking incision for 6 weeks, which includes bath, pool, or hot tubs. Ok to shower No driving while taking narcotic pain medications. Follow-Up: The patient will return in 2 weeks to the orthopaedic clinic for a wound check. The patient should call or return sooner for fever > 101.5F, incisional drainage or redness, or any other new concerns. If no flatus by 01/13/25 by noon, please got to ED or urgent care to be evaluated for abdominal post-op complications. /kyle/ Mercedes Armendariz DNP, ROOF SHINGLER, AGACNP-BC DNP, Ortho Signed: 01/11/2025 12:39 /kyle/ GRISELDA KIM MD STAFF SURGEON Cosigned: 01/12/2025 07:48 MERCEDES ARMENDARIZ [facility] Jan 11, 2025 12:49 PM NURSING DISCHARGE NOTE: LOCAL TITLE: [facility] NURSING DISCHARGE SUMMARY STANDARD TITLE: NURSING DISCHARGE NOTE DATE OF NOTE: JAN 11, 2025@12:49 ENTRY DATE: JAN 11, 2025@12:50 AUTHOR: PATRICK SINCLAIR COSIGNER: URGENCY: STATUS: COMPLETED Nursing Discharge Summary Home Discharge date and time: Dec@13:00 Accompanied by: Family Wheelchair Transportation: Own car Verify that the Contact Name and Phone Number are correct: KEENA ARMENDARIZ Condition: Alert, Oriented Skin Condition: Intact Incision: Yes, describe: Right Shoulder C/D/I per marley Education/Teach Back Patient and/or Caregiver was given beavers information in discharge instruction and able to teach back verbally or by return demonstration. Yes, demonstrated understanding Does patient have vascular access? Yes Peripheral IV Removed Does patient require assistance with outpatient visits due to cognitive limitations, mobility limitations, or has need for nursing assistance throughout the clinic day? Patient DOES NOT have an active LILLI flag assigned. No Wristband Removal:Patient wristband was removed and destroyed by being placed in the shred bin. When VA wristband is removed destroy the wristband by using a shredding machine, marking, or cutting the sensitive information that renders the band not readable or re-constructible to any degree. /kyle/ PATRICK SINCLAIR CAVALRY SCOUT NURSE Signed: 01/11/2025 13:16 PATRICK SINCLAIR [facility] Jan 11, 2025 11:59 AM EDUCATION DISCHARGE NOTE: LOCAL TITLE: EDUCATION NURSING DISCHARGE INSTRUCTIONS STANDARD TITLE: EDUCATION DISCHARGE NOTE DATE OF NOTE: JAN 11, 2025@11:59 ENTRY DATE: JAN 11, 2025@11:59:25 AUTHOR: PATRICK SINCLAIR EXP COSIGNER: URGENCY: STATUS: COMPLETED IMPORTANT PHONE NUMBERS: IF YOU HAVE A LIFE THREATENING EMERGENCY CALL 911 If you have questions about anything related to your inpatient care at the [facility] or your future care in the [facility], call the Call Center or After Hour numbers listed below. If you receive care at another [place] facility or with a community provider, you will need to call them for questions about your future care. -Call Center Wednesday-Wednesday, 7:30-4:30 at [phone] or Toll Free -After Hours- toll-free -Outpatient Pharmacy - -Verification of Appointments for the following month - While in the hospital you were treated for: Right reverse TSA Activity: Weightbearing: other: NWB RUE Range of Motion: other: No ROM to R shoulder Lifting restriction: No lifting greater then 0 lbs until cleared by Ortho Working restriction: None until cleared by Ortho MD Stairs restriction: Follow the OT & PT outlined instructions Driving restriction: None until Ortho MD clears and NOT while taking narcotic pain medications Sexual activity restriction: No Restriction Bathing restriction: No bathing/soaking x6w. May take light shower. Pat dressing dry immediately after shower DVT prophylaxis at discharge: ASA 162mg x 6w NSAID or Asprin restriction: No restrictions Incentive Spirometer 10 breaths, 10x/d for 14d Deep breathe and cough 4x/d for 7d If you do not pass gas by 01/13/25 @ noon. Please be evaluated in urgent care or ED to ensure you do not have abdominal complications Discharge Order Silverlon: Leave dressing in place until 2 week post-op evaluation. This dressing is waterproof so you may shower with the dressing in place. Gently pat dry. Do NOT soak or immerse incision/dressing. After 2 week post op visit the dressing will be removed and you may begin to shower with the wound uncovered. After showering, gently pat the wound dry and cover with dry sterile gauze and tape. Do NOT soak or immerse the incision in water for 4 weeks. (Nursing to provide extra dressing supplies) Discharge Order Prineo: Your incision is closed with surgical glue and mesh tape which completely sealed and waterproof. It will fall of on it own in 3-4 weeks after the incision [...] or bathtub for at least 4 weeks. Discharge Order Additional Instructions: When to call: Please call the Orthopedic nurse triage line right away at [phone] if you have any of the below symptoms: - Unusual redness, heat, or drainage at the incision site. - A temperature of 101 degrees F(38.3 C) or higher. - Pain or swelling in your calf or leg that does not decrease with elevation. - A sudden or dramatic increase in knee pain CALL 411 if you experience chest pain or difficulty breathing. Any other questions or concerns regarding your surgery may also be directed to the [facility] Orthopedic Nurse Triage line at [phone]. You may also reach the [facility] Call Center (nurse triage line) 24 hours per day, 7 days per week at [phone] or [phone]. *'S CRISIS LINE NUMBER IS (TALK)* Discharge from ICU, Acute Care, Acute Rehab, or CLC Written education reviewed and given on: Pain Management Discussed Managing Acute Pain Managing Acute Pain: A Patient Guide Activity Modifications: Home Environment Discussed Factors that might exacerbate pain or reduce effectiveness of pain management plan of care. Strategies to manage or decrease pain. Medications See Education Pharmacy Med Instruction/Reconcilliation note. Patient and/or other caregiver has had an opportunity to participate in the development of the discharge plan. The patient had an opportunity to ask questions. Primary Care Team: Primary Care Team: ANH COOK Primary Care Provider: ZENY MARTIN No Associate Provider Assigned. Attending Physician: GRISELDA KIM You are being discharged to: Home Phone number you can be contacted at for the next 2 weeks: Activity: You were identified as at risk for falling during your hospital stay. A copy of the Fall Prevention At Home pamphlet was given to and reviewed with the patient. Continuing care needs: If you receive care at [facility] you will need to call the Primary Care Call Center number at [phone]. If you receive care at another [place] facility or community provider, you will need to call them to arrange your follow up care. For surgical patients - If you don't receive a follow up clinic appointment within a week, please call the Call Center at [phone]. Future appointments: 01/24/2025 13:00 [facility] ORTHO 2WK NURSE PROCE INPATIENT APPOINTMENT 01/25/2025 10:00 [facility] MOVE GLC [address] [facility]QU[facility] INPATIENT APPOINTMENT 01/25/2025 11:00 [facility] PT WYATT EVAL INPATIENT APPOINTMENT 02/01/2025 10:00 [facility] 79 LAB INPATIENT APPOINTMENT 02/01/2025 11:00 [facility] METABOLIC [place] 79 INPATIENT APPOINTMENT 02/08/2025 10:00 [facility] [address] [facility] INPATIENT APPOINTMENT 02/22/2025 10:00 [facility] [address] GLC [address] [facility] INPATIENT APPOINTMENT 02/23/2025 11:00 [facility] XRAY GENERAL AM INPATIENT APPOINTMENT 02/23/2025 11:30 [facility] ORTHO JULIO INPATIENT APPOINTMENT 03/08/2025 10:00 [facility] [address] [facility] INPATIENT APPOINTMENT 04/09/2025 13:00 [facility] UROL RTC DUESMAN INPATIENT APPOINTMENT 08/10/2025 13:00 [facility] POD ANDREW HIGH RISK INPATIENT APPOINTMENT 09/21/2025 12:40 [facility] EYE TECH VISUAL FIELD INPATIENT APPOINTMENT 09/21/2025 13:00 [facility] EYE OPHTHAL COE INPATIENT APPOINTMENT A copy of these instructions has been given to: Patient IM - Immunizations ADMINISTERED Immunization Series Date Facility Reaction Info COVID-19 (PFIZER), MRNA, LNP-S, * 2 12/15/2020 [place] <C> COVID-19 (PFIZER), MRNA, LNP-S, * 1 11/24/2020 [place] <C> INFLUENZA, SPLIT VIRUS, QUADRIVA* 07/15/2020 [place] INFLUENZA, SPLIT VIRUS, TRIVALEN* 07/27/2019 [place] INFLUENZA, SPLIT VIRUS, TRIVALEN* 07/28/2018 [place] INFLUENZA, SPLIT VIRUS, TRIVALEN* 07/27/2017 [place] INFLUENZA, SPLIT VIRUS, TRIVALEN* 08/12/2016 [place] INFLUENZA, SPLIT VIRUS, TRIVALEN* 10/08/2015 [place] INFLUENZA, UNSPECIFIED FORMULATI* 08/21/2014 [place] INFLUENZA, UNSPECIFIED FORMULATI* 07/12/2013 [place] INFLUENZA, UNSPECIFIED FORMULATI* 08/13/2010 [place] INFLUENZA, UNSPECIFIED FORMULATI* 06/18/2009 [place] NOVEL [id number], ALL FOR* 10/31/2009 [place] <C> PNEUMOCOCCAL CONJUGATE PCV 13 10/08/2015 [place] <C> PNEUMOCOCCAL POLYSACCHARIDE PPV23 08/21/2014 [place] <C> PNEUMOCOCCAL, UNSPECIFIED FORMUL* 06/18/2009 [place] <C> TD(ADULT) UNSPECIFIED FORMULATION [employer]* TDAP 06/12/2013 [place] <C> CONTRAINDICATED No data available REFUSED ======= Immunization Date Facility Info COVID-19 (MODERNA), MRNA, LNP-S,* 10/14/2023 [place]* <I> COVID-19 (PFIZER), MRNA, LNP-S, * 05/12/2024 [place] <I> COVID-19 (PFIZER), MRNA, LNP-S, * 11/19/2023 [place] <I> INFLUENZA, UNSPECIFIED FORMULATI* 11/19/2023 [place] <I> INFLUENZA, UNSPECIFIED FORMULATI* 10/14/2023 [place] <I> INFLUENZA, UNSPECIFIED FORMULATI* 08/05/2023 [place] <I> INFLUENZA, UNSPECIFIED FORMULATI* 02/11/2023 [place] <I> INFLUENZA, UNSPECIFIED FORMULATI* 01/28/2023 [place] <I> PNEUMOCOCCAL POLYSACCHARIDE PPV23 05/12/2024 [place] <I> PNEUMOCOCCAL POLYSACCHARIDE PPV23 11/19/2023 [place] <I> PNEUMOCOCCAL POLYSACCHARIDE PPV23 10/14/2023 [place] <I> PNEUMOCOCCAL POLYSACCHARIDE PPV23 08/05/2023 [place] <I> PNEUMOCOCCAL POLYSACCHARIDE PPV23 01/28/2023 [place] <I> TD(ADULT) UNSPECIFIED FORMULATION 05/12/2024 [place] <I> TD(ADULT) UNSPECIFIED FORMULATION 11/19/2023 [place] <I> TD(ADULT) UNSPECIFIED FORMULATION 10/14/2023 [place] <I> TD(ADULT) UNSPECIFIED FORMULATION 08/05/2023 [place] <I> TD(ADULT) UNSPECIFIED FORMULATION 01/28/2023 [place] <I> ZOSTER RECOMBINANT 05/12/2024 [place] <I> ZOSTER RECOMBINANT 11/19/2023 [place] <I> ZOSTER RECOMBINANT 10/14/2023 [place] <I> ZOSTER RECOMBINANT 08/05/2023 [place] <I> ZOSTER RECOMBINANT 01/28/2023 [place] <I> <C> See the Detailed Immunizations Health Summary Component[DIM] for Comments <I> See the Detailed Immunizations Health Summary Component[DIM] for Additional Information * Value is truncated; see the Detailed Immunizations Health Summary Component[DIM] for /kyle/ PATRICK SINCLAIR CAVALRY SCOUT NURSE Signed: 01/11/2025 12:49 PATRICK SINCLAIR [facility] Jan 11, 2025 11:38 AM ADMINISTRATIVE NOTE: LOCAL TITLE: BENEFICIARY TRAVEL(BT) STANDARD TITLE: ADMINISTRATIVE NOTE DATE OF NOTE: JAN 11, 2025@11:38 ENTRY DATE: JAN 11, 2025@11:38:39 AUTHOR: MERCEDES ARMENDARIZ EXP COSIGNER: URGENCY: STATUS: COMPLETED BENEFICIARY TRAVEL SPECIAL MODE TRANSPORTATION: I have informed the [facility] that, requests with insufficient evidence of functional need, containing information that appears inconsistent with clinical evidence or appears intentionally exaggerated to obtain eligibility will be referred for further review or returned for additional information or clarification. Point of Contact's E-mail: Phone/Pager/Extension: [phone] MEDICAL JUSTIFICATION is not able to transfer into a private vehicle or medically appropriate common carrier, or requires additional assistance as outlined below. The clinical condition requiring the use of NE Special Mode transportation to be safely transported are as follows: Orthopedic condition precluding private transportation with assistance This request is not for an inter-facility transfer WHEELCHAIR VAN/AMBULETTE (Key Attendant Only; NO Social Problems Specialist; Non-Emergent): Wheelchair type: Manual Date travel is to commence: Dec eligibility and occupancy interviewer time (if needed): Estimated time frame [facility] will require transportation: 6 Months To and from all authorized VA and Non-VA care Frequency: Round Trip Additional supporting information: Requesting SMT enrollment for f/u appointments. does not require SMT d/c ride. /es/ Mercedes Armendariz, DNP, ROOF SHINGLER, AGACNP-BC DNP, Ortho Signed: 01/11/2025 11:42 MERCEDES ARMENDARIZ [facility] Jan 11, 2025 07:30 AM NURSING NOTE: LOCAL TITLE: TELEMETRY AND OXIMETRY CENTRALIZED NOTE STANDARD TITLE: NURSING NOTE DATE OF NOTE: JAN 11, 2025@07:30 ENTRY DATE: JAN 11, 2025@09:38:21 AUTHOR: KRISTEN PERERA EXP COSIGNER: URGENCY: STATUS: COMPLETED Continuous Oximetry Monitor: Day Shift Continuous oximetry initiation date/time: Dec@16:25. Oximetry indication: post anesthesia Respiratory history: severe COPD Continuous oximetry readin-99% Alarm parameters verified this shift. Accuracy of oxygen reading verified by waveform and/or review. /kyle/ KRISTEN PERERA SENIOR SALES ADMINISTRATOR Signed: 01/11/2025 09:38 KRISTEN PERERA [facility] Jan 11, 2025 06:57 AM ORTHOPEDIC SURGERY ATTENDING NOTE: LOCAL TITLE: ORTHOPEDIC INPT PROGRESS NOTE STANDARD TITLE: ORTHOPEDIC SURGERY ATTENDING NOTE DATE OF NOTE: JAN 11, 2025@06:57 ENTRY DATE: JAN 11, 2025@06:57:06 AUTHOR: BARBARA WOLF EXP COSIGNER: URGENCY: STATUS: COMPLETED Orthopedic Progress Note DOS: 01/10/2025 Surgery: R reverse TSA Surgeon: Dr. Kim SUBJECTIVE: POD1. Resting comfortably this AM. No acute events overnight. Pain controlled, reported to be 4-8/10 yesterday. Up to bathroom and walked [place] x2 yesterday. Voiding independently. Tolerating diet. 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 OBJECTIVE: Vitals: T 98 F [36.7 C] (01/10/2025 09:20) HR 61 (01/10/2025 09:20) RR 16 (01/10/2025 09:20) BP 128/73 (01/10/2025 09:20) O2 98% (01/10/2025 09:20) Pain 6 (01/11/2025 04:27) Physical Exam: General: Awake, alert, oriented, no apparent distress, answering questions appropriately Cardiovascular: RRR assessed by peripheral pulse. Extremities warm and well perfused. Respiratory: Breathing comfortably on room air. Extremities: RUE: - Silverlon c/d/i - sling in place - SILT ax, med, rad, and uln nerve distribs. Fires wrist extensors and flexors, FDS, FDP, EDC, EPL, FPL, intrinsics. Defers deltoid due to pain. - Hand wwp, 2+ radial pulse LABS: Hgb 14.5 (preop) Hgb 01/11: pending ASSESSMENT AND PLAN: KEENA ARMENDARIZ is a 69M who is s/p a R reverse total shoulder arthroplasty with Dr. Kim on 01/10. EBL 50 cc. Doing well, pain controlled. Plan for PT/OT today and determine safety of discharging to home v need for rehab. 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 AM labs pending. Med comanagement - Activity: Up with assistive device/MARIA M. Maria Fernanda okay - ROM/Precautions: No shoulder ROM - Weight Bearing Status: NWB RUE - Diet: ADAT - Pain: PRN PO medications with IV available - Antibiotics: ancef x 24h - DVT Prophylaxis: Aspirin 162 x 6 weeks - Dressing: Silverlon c/d/i x 2 weeks - Sutures: absorbable - Blue: None - Labs: CBC, BMP on POD1 - On home O2 at baseline, continue inpatient - Imaging: completed intraop - Elevation/ice as much as tolerated - Brace: ultrasling RUE at all times - PT/OT: Eval and treat starting POD#1 - Follow-up: Follow-up at two weeks and then six weeks with x-rays. Dispo: TBD. May be ready today, pending safe dispo plan. RESIDENT: Muna Wolf STAFF: Dr. Kim /kyle/ BARBARA WOLF MD RESIDENT Signed: 01/11/2025 07:01 BARBARA WOLF [facility] Jan 11, 2025 02:36 AM NURSING INPATIENT NOTE: LOCAL TITLE: [facility] NURSING PROGRESS NOTE STANDARD TITLE: NURSING INPATIENT NOTE DATE OF NOTE: JAN 11, 2025@02:36 ENTRY DATE: JAN 11, 2025@02:36:39 AUTHOR: KEVIN FRAIRE EXP COSIGNER: URGENCY: STATUS: COMPLETED Care Provided: [id number] FC; Right TSA on 01/10 with ortho NEURO: Alert & Oriented x 4, calm & cooperative with cares, able to make needs known, uses call light appropriately CARDIO: Denies C/P, no edema noted, all pulses palpable RESP: Denies SOB, LS CTA, non-labored breathing, O2 sats 95% on 2L O2, patient uses CPAP at night, nasal cannula during the day, and receives 2L O2 baseline at home. GI: Denies N/V, BS active x 4, non-tender abdomen, continent of bowel LBM:Preop DIET:Regular : Voids without issues via toliet or urinal, yellow, clear urine, continent of urine PAIN: Pt endorsed 9/10 pain at start of tour, treated with PRN oxycodone and methocarbamol, effective. ACTIVITY: Pt ambulates with standby assist x1 PIV: LFA patent, saline locked Fingerstick at 0600 was 220 Patient has a left leg brace on his right knee that he prefers to be on 10/05; no skin breakdown noted under or around brace. Swelling noted around incision site at start of tour, monitored throughout tour, no changes noted. SKIN: Assessment Type: SKIN REINSPECTION/REASSESSMENT SKIN INSPECTION: Skin Color: Usual for ethnicity Skin Temperature: Warm Skin Moisture: Normal Skin Turgor: Elastic (normal/immediate) Tee Skin Assessment: The patient's Tee Scale Score is 20. The patient is considered not at risk for development of pressure ulcers/injuries. Sensory perception -- ability to respond meaningfully to pressure-related discomfort No impairment. Moisture -- degree to which skin is exposed to moisture Rarely moist. Activity -- ability to change and control body position Walks occasionally. Mobility -- ability to change and control body position Slightly limited. Nutrition -- usual food intake patterns Adequate. Friction and shear No apparent problem. INTERVENTIONS: The pressure injury interventions were not needed - patient/resident is not at risk. RISK FACTORS THAT INCREASE RISK FOR DEVELOPING PRESSURE INJURIES: The patient/resident has the following: Device(s): (nasogastric tubes, oxygen tubing, urinary catheters, cell phone etc.) SKIN INTEGRITY: Intact Incision and Flaps: Incision 1: Location: right TSA Status: CDI Closure: Other: MATA Stabilization: Other: sling Surrounding tissue: Intact Wound drainage none. Dressing type: Other: silver juan a Recent Labs: PT 10.9 (01/10/25) INR 0.9 PLASMA (01/10/25 08:35) POTASSIUM 3.9 (01/10/25) SODIUM 138 (01/10/25) MAGNESIUM 2.0 (01/10/25) WBC 6.6 (01/10/25) HGB 14.5 (01/10/25) HCT 46.1 (01/10/25) CREATININE 0.9 (01/10/25) FINGERSTICK GLUCOSE 239 H (01/10/25) No events during this tour. See ICIP for further detailed assessments. /kyle/ KEVIN FRAIRE RN REGISTERED NURSE Signed: 01/11/2025 07:54 KEVIN FRAIRE [facility] Jan 11, 2025 12:52 AM NURSING NOTE: LOCAL TITLE: TELEMETRY AND OXIMETRY CENTRALIZED NOTE STANDARD TITLE: NURSING NOTE DATE OF NOTE: JAN 11, 2025@00:52 ENTRY DATE: JAN 11, 2025@00:52:45 AUTHOR: GATO ROLLE EXP COSIGNER: URGENCY: STATUS: COMPLETED Continuous Oximetry Monitor: Liner Roll Changer Continuous oximetry initiation date/time: Dec@16:25. Oximetry indication: post-anesthesia, other: on o2 at baseline, severe COPD Respiratory history: COPD Continuous oximetry readin-100% Alarm parameters verified this shift. Accuracy of oxygen reading verified by waveform and/or review. /karlos ROLLE DIVISION ORDER ANALYST Signed: 01/11/2025 00:53 GATO ROLLE [facility] Jan 10, 2025 11:03 PM NURSING POST OPERATIVE E & M NOTE: LOCAL TITLE: NURSING POST OPERATIVE NOTE STANDARD TITLE: NURSING POST OPERATIVE E & M NOTE DATE OF NOTE: JAN 10, 2025@23:03 ENTRY DATE: JAN 10, 2025@23:03:12 AUTHOR: GRACE OLSON EXP COSIGNER: URGENCY: STATUS: COMPLETED Surgical Procedure: R reverse TSA Returned to floor at: Dec@16:15 Most Recent Vitals: Temperature: 98 F [36.7 C] (01/10/2025 09:20) Pulse: 61 (01/10/2025 09:20) Respirations: 16 (01/10/2025 09:20) Blood Pressure: 128/73 (01/10/2025 09:20) Oxygen Saturation and/or Supplemental Oxygen: Pain: Words: Ache, Soreness Intensity (0=no pain - 10=worst pain) At present: 6 Worst pain: 8 Best pain gets: 4 Acceptable level: 4 Location: Shoulder Duration: Hours Aggravating and Alleviating factors: Aggravating; movement. Alleviating; rest, ice Neurological Check: Alert and Oriented, No Neuro Deficits. IV's (type, location, patency,insertion date): L FA IV Fluids: LR at at 75mls/hr then d/c'd at 2100 per orders. Incision/Site/Dressing(s): -R shoulder incision; silverlon dressing is CDI. Arm immbolizer is CDI. Suicide Precaution (during this hospital stay) Patient denies suicidal ideation this shift. SKIN TEE SKIN RISK ASSESSMENT Sensory Perception:3 = Slightly Limited Moisture: 3 = Occasionally Moist Activity: 3 = Walks Occasionally Mobility: 3 = Slightly Limited Nutrition: 3 = Adequate Friction: 2 = Potential Problem 15-18 Mild Risk Score: 17 CURRENT SKIN Skin Color: Usual for ethnicity Skin Temperature: Warm Skin Moisture: Normal Skin Turgor: Elastic (normal/immediate) SKIN PROBLEMS Wound - other than pressure ulcer/injury (includes open surgical wounds/incisions): Location: -R shoulder incision; silverlon dressing is CDI. Arm immbolizer is CDI. No Edema Wound drainage none. INTERVENTIONS: No change in previous interventions as listed below No data available Skin Interventions performed this shift: Patient turned [id number] or as appropriate while in bed. Patient's heels elevated with pressure relief boots or pillows under calves. Head of Bed kept below 30 degrees unless otherwise ordered. Pneumoboots/TEDS or PlexiPulse (pnuematic compression device) on patient: Yes Mental Status: alert PO Intake Status: resume regular diet Activity Level: Up ad simón once awake Other Nursing Observations and Interventions: Pt arrived to unit via litter and hovermatted over to bed. Pt is alert x4, but drowsy. VSS, pt on 2L O2 via NC per baseline. Pt set up assist with meals, eating 100% of supper. CMS+, radial pulse is palpable to RUE. Sling to R arm is CDI. Polar pack to shoulder filled x1, on and off several times. At HS pt did not want to refill. CPAP on at HS with 2L O2 bled into. Pt voiding large amount per BR this evening. /kyle/ GRACE OLSON RN RN, 2L Signed: 01/10/2025 23:12 GRACE OLSNO [facility] Jan 10, 2025 04:36 PM NURSING NOTE: LOCAL TITLE: TELEMETRY AND OXIMETRY CENTRALIZED NOTE STANDARD TITLE: NURSING NOTE DATE OF NOTE: JAN 10, 2025@16:36 ENTRY DATE: JAN 10, 2025@19:36:26 AUTHOR: GATO ROLLE EXP COSIGNER: URGENCY: STATUS: COMPLETED Continuous Oximetry Monitor: Evening Shift Continuous oximetry initiation date/time: Dec@16:25. Oximetry indication: post-anesthesia, other: on o2 at baseline, severe COPD Respiratory history: COPD Continuous oximetry readin-100% Alarm parameters verified this shift. Alarm parameters modified from default settings: 90 to 105 as directed by nursing Accuracy of oxygen reading verified by waveform and/or review. /karlos ROLLE DIVISION ORDER ANALYST Signed: 01/10/2025 19:38 GATO ROLLE [facility] Jan 10, 2025 04:25 PM NURSING ADMISSION EVALUATION NOTE: LOCAL TITLE: [facility] ACUTE INPATIENT NSG ADMISSION SCREEN STANDARD TITLE: NURSING ADMISSION EVALUATION NOTE DATE OF NOTE: JAN 10, 2025@16:25 ENTRY DATE: JAN 10, 2025@16:25:11 AUTHOR: BERNADINE GOLDMAN EXP COSIGNER: URGENCY: STATUS: COMPLETED ===== ALLERGY/ADVERSE DRUG REACTION (ADR) REVIEW (MRT5) ===== FACILITY ALLERGY/ADR -------- [facility] AMLODIPINE [facility] DEMEROL HYDROCHLORIDE INJECTION 50 MG/ML [facility] DULOXETINE [facility] GABAPENTIN [facility] LISINOPRIL [facility] LOSARTAN [facility] AMLODIPINE [facility]IS[facility] Allergy/Adverse Drug Reaction Review to be conducted by: Nurse: Results of Allergy/ADR Review: Allergy/Adverse Drug Reaction list confirmed. ==== MEDICATION REVIEW (MRR1) ==== Did patient bring medication(s) from home? No Medication Review to be conducted by pharmacy ==== GENERAL INFORMATION ==== Admission information given by: Patient Is there a legal guardian/conservator? No Preferred language for discussing healthcare: Kyrgyz Preferred mode of communication: Verbal Items at Bedside: Other: bag of clothing, cell phone, shoes ===== INFECTIOUS DISEASE RISK SCREEN ===== Travel Screen: Have you traveled within the [place] within the last 21 days? No Have you traveled outside the [place] within the last 21 days? No Within the last 14 days, have you had: No known exposure Other Exposure to Infectious Disease: No known exposure Patient reported the following symptoms: No Symptoms Present History of Multiple Drug Resistant Organism (MDRO): No ===== NUTRITION SCREENING ===== Malnutrition Screening Weight (Previous 6 months): Measurement DT WEIGHT LB(KG)[BMI] 01/10/2025 09:21 186(84.37)[27] 12/28/2024 11:38 185.5(84.14)[27] 12/14/2024 11:13 186(84.37)[27] 11/30/2024 10:14 185(83.91)[27] 11/02/2024 11:15 188.1(85.32)[27] 09/25/2024 11:52 192.3(87.23)[28*] 09/07/2024 12:05 191.5(86.86)[28*] 07/27/2024 11:27 194(88.00)[28*] 07/13/2024 11:07 192.4(87.27)[28*] Lost weight recently without trying: No (0 points) Have you been eating poorly because of decreased appetite? No (0 points) Total Score: 0 Other Nutrition Screening Questions: The patient does not report any concerns with their teeth that would make it difficult to eat. The patient does not report overeating to the point of feeling sick or making themselves vomit. The patient denies gaining 10 lbs.(4.5 kgs) or more in the past 3 months without trying. The patient denies having any food allergies, intolerance, special dietary needs, or ethnic, cultural or rastafarian preferences that would affect their dietary needs. Food Insecurity Screening Within the past 12 months, you worried whether your food would run out before you got money to buy more. Never true Within the past 12 months, the food you bought just did not last you and you did not have the money to get more. Never true Food Insecurity Disposition: ==== RISK SCREENINGS ==== Alcohol Screen: Screen to be completed by: Nurse: SCREEN FOR ALCOHOL (AUDIT-C) An alcohol screening [...] required due to responses to other questions. *Does the patient consume alcohol? No Tobacco Use: Never - tobacco user Do you currently or have you ever used alternative nicotine products? No Substance Use Assessment: *Do you use any recreational drugs or narcotics (prescription or non-prescription)? No ===== RISK OF WANDERING ===== The patient does not have a history of wandering. The patient does not have a history of elopement. The patient is not expressing a desire to leave. === SUICIDE SCREEN === [place] Suicide Severity Rating Scale (C-SSRS) 1. Over the past month, have you wished you were or wished you could go to sleep and not wake up? No 2. Over the past month, have you had any actual thoughts of killing yourself? No 3. Over the past month, have you been thinking about how you might do this? Response not required due to responses to other questions. 4. Over the past month, have you had these thoughts and had some intention of acting on them? Response not required due to responses to other questions. 5. Over the past month, have you started to work out or worked out the details of how to kill yourself? Response not required due to responses to other questions. 6. If yes, at any time in the past month did you intend to carry out this plan? Response not required due to responses to other questions. 7. In your lifetime, have you ever done anything, started to do anything, or prepared to do anything to end your life (for example, collected pills, obtained a gun, gave away valuables, went to the roof but didn't jump)? No 8. If YES, was this within the past 3 months? Response not required due to responses to other questions. C-SSRS Screen is Negative ==== EXPOSURE TO VIOLENCE AND ABUSE PRE-SCREEN ==== Are you worried for your safety, that you will be hurt or harmed? No Has anyone tried to force you to sign papers or use your money against your will? No ==== POST TRAUMATIC STRESS DISORDER CARE CONSIDERATIONS ==== To minimize a startle response, what is your preference on how best to awaken you? No preference ===== REPRODUCTIVE & SEXUAL HEALTH ===== Do you have any sexual or reproductive concerns you would like your healthcare team to be aware of? No ==== ADVANCE DIRECTIVE ==== Notification of Rights Related to Advance Directives: Written notification provided. *The patient wishes to receive information about or assistance with Advance Care Planning and/or Advance Directive: No === SPIRITUALITY === Are there rastafarian practices or spiritual concerns you want the senior radiation therapist, your provider, and other health care team members to know? No ==== ANTICIPATED DISCHARGE NEEDS ==== Where do you live? Housing owned/rented by [facility]: Method of transportation upon discharge: Private Vehicle: Are there any anticipated barriers to discharge? No === EDUCATIONAL NEEDS/LEARNING STYLE === Barriers to learning: None evident Patient learning style preferences: None ====== CALVIN FALL SCALE & TIPS PROGRAM ====== Calvin Fall Scale: The Calvin Fall scale was performed and score was 60. This is indicative of high risk for falls. History of falling: immediate or within 3 months? No Secondary diagnosis: Yes Ambulatory aid: Crutches/cane(s)/walker Intravenous therapy/Heparin lock: Yes Gait/Transferring: Weakness Mental Status: Oriented to own ability/knows own limitations Fall Tailoring Interventions for Patient Safety (TIPS) Fall TIPS initiated with patient: Yes Interventions: Communicate recent fall or risk of harm Walking Aids: Walker Assistance out of bed: Call for assistance before getting out of bed ===== ASPIRATION RISK ASSESSMENT AND SWALLOW SCREEN ===== Aspiration Risk(s): Screening complete. No aspiration risk identified. Bedside Swallow Screen not indicated. ====== PAIN ASSESSMENT ====== Patient's acceptable pain goal: Are you currently experiencing pain? No: /karlos GOLDMAN RN REGISTERED NURSE Signed: 01/10/2025 16:28 BERNADINE GOLDMAN [facility] Jan 10, 2025 04:22 PM TREATMENT PLAN INTERDISCIPLINARY NOTE: LOCAL TITLE: ITP INTERDISCIPLINARY TREATMENT PLAN STANDARD TITLE: TREATMENT PLAN INTERDISCIPLINARY NOTE DATE OF NOTE: JAN 10, 2025@16:22 ENTRY DATE: JAN 10, 2025@16:22:26 AUTHOR: BERNADINE GOLDMAN COSIGNER: URGENCY: STATUS: COMPLETED ITP INTERDISCIPLINARY TREATMENT PLAN Has ADDENDA PAIN / INFECTION: Patient Goals: 1.Patient will exhibit decreased behavioral and physical signs of pain. 2.Patient will remain absent of S/S of infection Treatment plan/Interventions: 1.teach pt. pain scale rating, assess pain level with VS, offer pain meds PRN pain, educate pt. about pain medications being administered, monitor and document effectiveness of pain medications, follow-up with MDs if pain management is ineffective 2.staff will use proper hand washing technique, administer ordered ABX, use sterile technique for dressing changes, teach and encourage use of IS, monitor for adequate nutrition, monitor and report changes in lab results, monitor and chart description of incisional area Measurable Outcomes: 1.pt. VS are stable and WNL, pt. is able to verbalize a decreased level or absence of pain, pt. verbalizes effective methods of pain management 2.pt. is free of s/s of infection - afebrile, no yellowish or greenish foul- smelling drainage from wound, wound margins are pink and non-tender, pain level not increasing; pt. is able to verbalize s/s of infection for home care, describe antibiotics might be needed. /karlos GOLDMAN RN REGISTERED NURSE Signed: 01/10/2025 16:23 01/11/2025 ADDENDUM STATUS: COMPLETED Measurable Outcomes: 1.pt. VS are stable and WNL, pt. is able to verbalize a decreased level or absence of pain, pt. verbalizes effective methods of pain management Goal Met 2.pt. is free of s/s of infection - afebrile, no yellowish or greenish foul- smelling drainage from wound, wound margins are pink and non-tender, pain level not increasing; pt. is able to verbalize s/s of infection for home care, describe antibiotics might be needed. Goal met /kyle/ PATRICK SINCLAIR CAVALRY SCOUT NURSE Signed: 01/11/2025 12:49 BERNADINE GOLDMAN [facility] Jan 10, 2025 03:47 PM INTERNAL MEDICINE CONSULT: LOCAL TITLE: MEDICINE CO-MANAGEMENT CONSULT STANDARD TITLE: INTERNAL MEDICINE CONSULT DATE OF NOTE: JAN 10, 2025@15:47 ENTRY DATE: JAN 10, 2025@15:47:47 AUTHOR: KYLE NAZARIO COSIGNER: URGENCY: STATUS: COMPLETED PRIMARY SERVICE: Orthopedics REASON FOR CONSULT: CAD, DM2, MARTINEZ, severe COPD (on O2 at baseline) HISTORY OF PRESENT ILLNESS: Mr. 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 Patient was seen after return form OR/PACU. He reported significant right shoulder pain despite recently given pain meds. Pt denied any dyspnea or chest discomfort. PAST MEDICAL HISTORY: Active problems - Computerized Problem List is the source for the followin. Diabetic peripheral neuropathy (SNOMED CT 314422092) 2. Sleep apnea (SNOMED CT 16948966) - iVAPS: R: 18, PS: 7-16, EPAP+14, Mirag Quatt Med 3. Severe chronic obstructive pulmonary disease 4. Personal History of Tobacco Use - Quit 2003, Smoked x 25 years 5. Inguinial Hernia Repair 6. Benign essential hypertension 7. Erectile dysfunction 8. Osteoarthrosis involving the spine 9. Hyperlipidemia (SNOMED CT 36839861) 10. Polyp of colon (SNOMED CT 41290623) 11. Open Angle, Primary 12. Morbid obesity (SNOMED CT 651986196) 13. History of adenomatous polyp of colon - By 2008 colonoscopy 14. Hypothyroidism 15. Mild memory disturbance - Due to multiple medical etiologies; Normal NPT 2014 16. History of repair of umbilical hernia 17. Chronic pain following right total knee arthroplasty (SNOMED CT 934292315210 18. Hip pain 19. Iron deficiency anemia 20. Diabetes mellitus type 2 without retinopathy (SNOMED CT 2770415164127) 21. Hypokalemia 22. Obesity 23. Ventricular bigeminy 24. Acute non-ST segment elevation myocardial infarction 25. PVC - premature ventricular contraction (SNOMED CT 407520611) 26. Coronary arteriosclerosis - s/p FRED x1 to RCA (2019) 27. History of radiofrequency ablation operation for arrhythmia - - S/p LV summit PVC ablation 12/22/22 28. Exposure to potentially hazardous substance 29. Exposure to potentially hazardous substance - agent orange ALLERGIES: LISINOPRIL (February 18, 2009) LOSARTAN (February 18, 2009) AMLODIPINE (Jun 18, 2009) DEMEROL HYDROCHLORIDE INJECTION 50 MG/ML (March 04, 2014) GABAPENTIN (Jan 23, 2016) DULOXETINE (Feb 11, 2016) MEDICATIONS: Active Outpatient Medications (excluding Supplies): Outpatient Medications Status 1) ASPIRIN 81MG EC TAB TAKE ONE TABLET BY MOUTH EVERY DAY ACTIVE Indication: TO PREVENT BLOOD CLOTS 2) BENZOYL PEROXIDE 10% (WATER BASED) GEL APPLY THIN LAYER ACTIVE TOPICALLY TWICE A DAY APPLY TO SURGICAL SHOULDER STARTING TWO DAYS PRIOR TO SURGERY AND MORNING OF SURGERY. PROCEDURE DATE: 01/10/25 Indication: TO PREVENT INFECTION 3) BRIMONIDINE 0.2%/BRINZOLAMID 1% OPH SUSP INSTILL ONE DROP IN ACTIVE BOTH EYES TWO TIMES A DAY Indication: FOR GLAUCOMA 4) CHOLECALCIF 25MCG (D3-1,000UNIT) TAB TAKE ONE TABLET BY ACTIVE MOUTH EVERY DAY 5) DICLOFENAC NA 1% TOP GEL APPLY 4 GRAMS TOPICALLY FOUR TIMES ACTIVE A DAY NEEDED TO BILAT WRIST FOR ARTHRITS PAIN DO NOT EXCEED A TOTAL MAX OF 32-GRAMS PER DAY Indication: TO AFFECTED AREA FOR PAIN 6) EMPAGLIFLOZIN 25MG TAB TAKE ONE TABLET BY MOUTH EVERY DAY ACTIVE 7) FERROUS GLUCONATE 324MG TAB TAKE ONE TABLET BY MOUTH EVERY ACTIVE DAY AT LEAST 4 HOURS AWAY FROM LEVOTHYROXINE Indication: FOR IRON SUPPLEMENT 8) FUROSEMIDE 20MG TAB TAKE ONE TABLET BY MOUTH EVERY DAY ACTIVE 9) ISOSORBIDE MONONITRATE 60MG SA TAB TAKE ONE TABLET BY MOUTH ACTIVE EVERY DAY 10) KETOCONAZOLE 2% SHAMPOO SHAMPOO SCALP, AVALOS, CHEST ACTIVE TOPICALLY 3 TIMES WEEKLY *LATHER FOR 5 MINUTES THEN RINSE* 11) LATANOPROST 0.005% OPH SOLN INSTILL 1 DROP IN BOTH EYES AT ACTIVE BEDTIME REFRIGERATE BOTTLE UNTIL OPENED. Indication: FOR GLAUCOMA 12) LEVOTHYROXINE NA (SYNTHROID) 25MCG TAB TAKE ONE TABLET BY ACTIVE MOUTH EVERY DAY FOR THYROID - TAKE AT LEAST FOUR HOURS AWAY FROM FERROUS GLUCONATE 13) LIDOCAINE 5% OINT APPLY MODERATE AMOUNT TOPICALLY EVERY DAY ACTIVE NEEDED Indication: FOR PAIN 14) LORATADINE 10MG TAB TAKE ONE TABLET BY MOUTH EVERY DAY FOR ACTIVE ALLERGIES 15) METFORMIN HCL 1000MG TAB TAKE ONE AND ONE-HALF TABLETS BY ACTIVE MOUTH EVERY MORNING AND TAKE ONE TABLET EVERY EVENING 16) METOPROLOL SUCCINATE 25MG SA TAB TAKE ONE-HALF TABLET BY ACTIVE MOUTH EVERY DAY 17) MUPIROCIN 2% OINT APPLY PEA SIZED AMOUNT INSIDE EACH NOSTRIL ACTIVE TOPICALLY TWICE A DAY FOR FIVE DAYS PRIOR TO SURGERY -PROCEDURE DATE: 01/10/25 Indication: TO PREVENT INFECTION 18) OMEPRAZOLE 20MG EC CAP TAKE ONE CAPSULE BY MOUTH EVERY DAY ACTIVE Indication: FOR HEARTBURN 19) PEG 400 0.4%/PROP GLYCOL 0.3% OPH SOLN INSTILL 1 DROP IN ACTIVE BOTH EYES FOUR TIMES A DAY NEEDED Indication: FOR DRY EYES 20) ROSUVASTATIN CA 40MG TAB TAKE ONE TABLET BY MOUTH AT BEDTIME ACTIVE 21) SEMAGLUTIDE 1MG/0.75ML INJ PEN 3ML INJECT 1MG UNDER THE SKIN ACTIVE ONCE WEEKLY ON WEDNESDAYS Indication: FOR DIABETES 22) TACROLIMUS 0.1% TOP OINT APPLY SMALL AMOUNT TOPICALLY TWICE ACTIVE A DAY Indication: FOR DERMATITIS 23) TOPIRAMATE 50MG TAB TAKE THREE TABLETS BY MOUTH TWICE A DAY ACTIVE TAKE AT NOON AND BEFORE DINNER TO REDUCE CRAVINGS. 24) VANICREAM TOP CREAM APPLY THIN LAYER TOPICALLY EVERY DAY ACTIVE Indication: FOR DRY SKIN : SOCIAL HISTORY: Lives alone in [place], [place] HABITS: Tobacco- Quit 2003, Smoked x 25 years Alcohol- denies Substance use- denies REVIEW OF SYSTEMS All other systems were reviewed and are found to be negative and non- contributory, unless noted in the HPI. PATIENT EXAMINATION: VITALS: Temp: 98 F [36.7 C] (01/10/2025 09:20) BP: 128/73 (01/10/2025 09:20) HR: 61 (01/10/2025 09:20) RR: 16 (01/10/2025 09:20) O2SAT: PULSE OXIMETRY (MOST RECENT IN LAST YEAR): 98 (JAN 10, 2025@09:20:46) Weight:84 PHYSICAL EXAM: GENERAL: Elderly male in NAD CV: RRR, normal S1/S2, no murmur RESPIRATORY: Poor air exchange, no crackles or wheeze ABDOMEN: Normal bowel sounds, soft, nontender, nondistended EXTREMITES: No LE edema. 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 # S/p Right reverse TSA. - Management per Ortho Chronic medical problems: # CAD . Asymptomatic. # HLD - Cont. VISUAL AND STOCK ASSOCIATE ASA, statin, long acting nitrates and B-nelly # Right-sided HF , likely 2/2 severe COPD/ MARTINEZ - Holding furosemide , d/c mIVF's ordered by Ortho # HTN - Cont. VISUAL AND STOCK ASSOCIATE metoprolol and isosorbide with holding parameters # DM2. Previously on Glargine , which was stopped after dramatic weight loss - Starting Glargine 10 units qhs and medium dose correctional scale Aspart - Will hold VISUAL AND STOCK ASSOCIATE empagliflozin and Metformin for now - Cont. VISUAL AND STOCK ASSOCIATE semaglutide . # COPD, severe with chronic O2 dependence. Chronic sputum production, no change from baseline - Starting scheduled Albuterol nebs QID followed by flutter valve x 10 breaths - Cont. VISUAL AND STOCK ASSOCIATE Spiriva - Add guaifenesin 10 ml QID # MARTINEZ. Severe - Cont. home CPAP # Hypothyroidism - Cont. VISUAL AND STOCK ASSOCIATE levothyroxine # REYES - Cont. iron supplements Prophylaxis: DVT- sq enoxaparin /es/ KYLE NAZARIO MD STAFF PHYSICIAN Signed: 01/10/2025 20:38 KYLE NAZARIO [facility] Jan 10, 2025 03:32 PM NURSING TRANSFER SUMMARIZATION NOTE: LOCAL TITLE: [facility] PACU TRANSFER NOTE STANDARD TITLE: NURSING TRANSFER SUMMARIZATION NOTE DATE OF NOTE: JAN 10, 2025@15:32 ENTRY DATE: JAN 10, 2025@15:19:07 AUTHOR: WYATT HODGE COSIGNER: URGENCY: STATUS: COMPLETED PACU Transfer Note Status Post: R reverse TSA Code Status: Full Code n/a Patient's Infection Control Status: standard Pertinent History: hypertension, hyperlipidemia, severe COPD- home O2 2lpm, sleep apnea- daily BiPAP, h/o a seizure while in the service, h/o cardiac arrest after getting Demerol, s/p PVC ablation- 12/22/22, h/o pericarditis- January 2023, mild memory disturbance, hypothyroid, arthritis, open angle glaucoma, CAD, NSTEMI-FRED x 1 to rPAV-04/07/20. Anesthesia Type: General If block used estimated time to wear off: Hrs. Estimated Blood Loss: 50 Crystalloid (OR/PACU): 900 Colloid (OR/PACU): Medications Given in OR: Zofran 4 mg Decadron 4 mg Other: dilaudid 0.5mg, Ancef 2gm. Took Omeprazole 20mg @ 1005 Medications Given in PACU: Dilaudid Total Given: 1 mg Last Dose: 0.5 mg at 1500 Other:METHOCARBAMOL 500mg po 1515 Last dose of Acetaminophen (Tylenol) 650 mg at 1005. Next dose of Acetaminophen may given 6 hours from charted time. Discharging Anesthesiologist: ADAM CORBIN Current Vital Signs: Temperature: 37.4 C BP: 130/70, HR: 67 Respiratory Rate: 17 0xygen 2 liters Nasal Cannula Oxygen Saturation: 99% Heart Rhythm: NSR Pain: mild-moderate shoulder pain. had SUPRA-SUPLCAVICULAR AND AXILLARY BLOCK should last 12-24 hours.Is having shoulder pain. Neuro: alert and oriented x4, [place], can wiggle fingers, feel touch on hand. CV: 18g L wrist Respiratory: LS clear bilat. USES oxygen at home 2L/NC, uses cpap at night with oxygen as well. GI: no nausea, sips of water : Amount:cc at Urine Output (OR/PACU): 250 cc Urine Source: Blue blue d/c at 1430. Dressings: silverlon dressing to R shoulder Drains: Integrative Therapies: shoulder immobilizer Right Skin: intact Pertinent labs: FS 183 Transfer to: [facility] Condition: Stable Other pertinent information: No phone number for son in [place]. Pt wants to drink lots of coffee. /kyle/ WYATT HODGE RN Signed: 01/10/2025 15:32 WYATT HODGE [facility] Jan 10, 2025 02:35 PM ANESTHESIOLOGY OPERATIVE NOTE: LOCAL TITLE: ARK ANESTHESIA RECORD STANDARD TITLE: ANESTHESIOLOGY OPERATIVE NOTE DATE OF NOTE: JAN 10, 2025@14:35 ENTRY DATE: JAN 10, 2025@16:51:21 AUTHOR: EMERALD MEDINA EXP COSIGNER: URGENCY: STATUS: COMPLETED See [facility] for Full Anesthesia Record /kyle/ EMERALD MEDINA MD ANESTHESIOLOGIST Signed: 01/10/2025 16:51 EMERALD MEDINA [facility] Jan 10, 2025 02:34 PM NURSING OPERATIVE NOTE: LOCAL TITLE: INTRAOPERATIVE NURSING NOTE STANDARD TITLE: NURSING OPERATIVE NOTE DATE OF NOTE: JAN 10, 2025@14:34 ENTRY DATE: JAN 10, 2025@12:44:53 AUTHOR: GODWIN VIZCARRA EXP COSIGNER: URGENCY: STATUS: COMPLETED Intraoperative Nursing Note Part (D) Postoperative Assessment: Post-Op Skin Assessment Inspected patients skin post procedure Yes Any (abnormalities) ie:reddened areas, abrasions, bruises: No abnormalities observed [facility] Perioperative plan of care was implemented with intraoperative goals and objectives met: Yes A debriefing procedure was performed by Verifying the following: Procedure, Wound Classification, EBL A local anesthetic was used intraoperatively: Yes, See medications in VISTA charting. An Intraoperative x-ray was taken per hospital policy. 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 Yes Concentrating on incision sites moving from clean to dirty areas Vigorously scrubbed skin back & forth for 3 minutes /karlos BELTRÁN Signed: 01/10/2025 13:25 YAA RESENDEZ [facility] Jan 10, 2025 12:39 PM NURSING OPERATIVE NOTE: LOCAL TITLE: INTRAOPERATIVE NURSING NOTE STANDARD TITLE: NURSING OPERATIVE NOTE DATE OF NOTE: JAN 10, 2025@12:39 ENTRY DATE: JAN 10, 2025@12:39:56 AUTHOR: GODWIN VIZCARRA EXP COSIGNER: URGENCY: STATUS: COMPLETED Intraoperative Nursing Note Part (A) Pre-op Check: Code Status: Full Code Location Pre-operative interview completed [facility]- See [facility] Nursing Note in CPRS Part (B) Preoperative Assessment: Patient stated full name: * Yes Patient stated full social security number and/or date: * Yes Patient stated procedure as: RIGHT REVERSE TOTAL SHOULDER SURGERY Correct site(s) marked with provider's initials: * Yes; with provider's initials Patient was NPO since midnight: Yes Allergies: LISINOPRIL (February 18, 2009) LOSARTAN (February 18, 2009) AMLODIPINE (Jun 18, 2009) DEMEROL HYDROCHLORIDE INJECTION 50 MG/ML (March 04, 2014) GABAPENTIN (Jan 23, 2016) DULOXETINE (Feb 11, 2016) Code Status: Full Code Implantable electronic devices: (i.e. pacemaker, ICD, DCS, etc.) No Metal, implants, artificial joints or shrapnel in body? Yes: LEFT HIP,RIGHT KNEE,HEART STENT Does patient have any valuables or belongings in OR? No Skin intact: Yes Tattoos identified: Yes: with electrocautery use, the dispersive pad was not placed over tattoo. Patient's physical limitations were indentified pertinent to procedural positioning or patient care demands: No physical limitation identified. Tubes/drains/vacuum dressings/appliances were present preoperatively: No Patient accompanied today by: No: no one will be present during the patient's surgery Part (C) Intraoperative Assessment: Intraoperative positioning Type of position: SEMI-FOWLERS Type & location of positioning equipment: SEMI SITTING WITH [employer] SHOULDER BED POSITIONER. HEAD SUCURED ON PADDED HEAD ATTACHMENT WITH BROWN STRAP ATTACHMENT PER ANESTHESIA. LEFT ARM IN NEUTRAL POSITION ON ARM HERRERA PADDED WITH FOAM PAD AND SECURED WITH TAPE PER ANESTHESIA. RIGHT ARM DRAPPED FREE AND POSITIONED WITH MARCOS PER MD. BONE FOAM WEDGE UNDER BILATERAL LEGS. SAFETY STRAP ACROSS BILATERAL THIGHS. BILATERAL LEG SCD APPLIED AND TURNED ON PRIOR TO INDUCTION. POSITIONING VERIFIED BY SURGEON. Personnel & title of those who positioned the patient: SEE RAFITA Carpenter fire risk assessment was performed utilizing the Association of periOperative Registered Nurses (AORN) Fire Risk Assessment Tool. The [facility] Operating Room Perioperative Plan of Care for fire safety was implemented. Yes: An alcohol-based skin antiseptic or other flammable solution was used intraoperatively. The actions taken were: Nonflammable packaging with unit dosed applicators utilized. Towels used to absorb excess solution to prevent pooling of skin prep solutions on or around patient. Excessive solution removed by sterile towel including any pooling that may have occurred. Solution-soaked material removed from the sterile field prior to draping and use of electrosurgery, cautery, or a laser. Solutions allowed to dry completely per store stock associate guidelines and fumes to dissipate prior to draping and use of surgical equipment. The procedure is above the xiphoid process or in the oropharynx. The actions taken were: Adhesive incise drape used between surgical site and oxygen source. Laryngeal mask airway or endotracheal tube used because patient required supplemental oxygen greater than 30%. Wet sponges packed around the endotracheal tube cuff at the back of patient's throat. Accumulated anesthetic gas evacuated before an ignition source is used in or near the oxygen-enriched environment. Surgical smoke evacuated when using electrosurgery or a laser near the endotracheal tube. Oropharynx suctioned deeply before using an ignition source when oxygen was in use. An electrosurgical unit (ESU) or high temperature cautery was used: Cord inspected prior to use; free of stress, kinks, knots, or bends. (Do NOT use if there are breaks, nicks, or crackes in the insulated coating. Do NOT coil or kink cord during use.) ESU active electrode kept away from open sourced oxygen and nitrous oxide. ESU activated only by the person controlling the active electrode. Power setting used was the lowest possible to achieve desired results. Safety holster used for the active electrode when not in use. Surgical drape/linen kept away from the activated ESU. Ignition source was not used to enter trachea. Ignition source was not used to enter bowel distended with gas. Flammable agents allowed to dry completely per store stock associate guidelines and fumes to dissipate prior to use of ESU. Active electrode kept clean and used per store stock associate's recommendations. Other possible fire source was used: (defibrillator, drills, diego, saw) Saline dripped over moving drill, diego or saw blades to prevent overheating. Drill/saw placed on jernigan stand, ring basin or on back table when not in use. Patient is undergoing a cardiothoracic procedure: No: An indwelling urinary catheter was placed intraoperatively: Yes: a 16 sierra leonean/5cc indwelling urinary catheter to drainage was inserted by RICK EDGAR RN Urine return was: Clear /es/ GODWIN VIZCARRA RN OR Signed: 01/10/2025 12:44 GODWIN VIZCARRA [facility] Jan 10, 2025 11:35 AM SURGERY NURSING OPERATIVE NOTE: LOCAL TITLE: NURSE INTRAOPERATIVE REPORT STANDARD TITLE: SURGERY NURSING OPERATIVE NOTE DATE OF NOTE: JAN 10, 2025@11:35 ENTRY DATE: JAN 10, 2025@14:30:35 AUTHOR: GODWIN VIZCARRA EXP COSIGNER: URGENCY: STATUS: COMPLETED SUBJECT: Case #: [id number] Operating Room: OR6 Surgical Priority: ELECTIVE Patient in Hold: NOT ENTERED Patient in OR: JAN 10, 2025 11:35 Operation Begin: JAN 10, 2025 12:17 Operation End: JAN 10, 2025 14:25 Patient Out OR: JAN 10, 2025 14:30 Major Operations Performed: Primary: Right reverse TSA Robotic Assistance (Y/N): NO Wound Classification: CLEAN Operation Disposition: HUYNH Discharged Via: STRETCHER Primary Surgeon: GRISELDA KIM Dump Truck Operator: BARBARA WOLF Attending Surgeon: GRISELDA KIM Second Assist: N/A Table Tender Sludge: MARJAN HILLIARD Facility Coordinator Anesth: N/A OR Support Personnel: Scrubbed Circulating SHERMAN RAMIREZ (FULLY TRAINED) GODWIN VIZCARRA (FULLY TRAINED) RICK EDGAR (FULLY TRAINED) Other Persons in OR: GENA CASTILLO-ARTHSHREYA (ARTHREX REP) Preop Mood: RELAXED Preop Consc: ALERT-ORIENTED Preop Skin Integ: INTACT Preop [place]: N/A --- Time Out Checklist --- Confirm Correct Patient Identity: YES Confirm Procedure To Be Performed: YES Confirm Site of the Procedure, Including Laterality: YES Confirm Valid Consent: YES, i-MED Confirm Patient Position: YES Confirm Procedure Site has been Marked Appropriately and that the Site of the Clark is Visible After Prep and Draping: YES Pertinent Medical Images Have Been Confirmed: YES Correct Medical Implant(s) is Available: YES Availability of Special Equipment: YES Appropriate Antibiotic Prophylaxis: YES Appropriate Deep Vein Thrombosis Prophylaxis: YES Blood Availability: NOT INDICATED Checklist Comment: NO COMMENTS ENTERED Time-Out Document Completed By: GODWIN VIZCARRA Time-Out Completed: JAN 10, 2025@12:13 Skin Prep By: BARBARA WOLF Skin Prep Agent: HIBICLENS Skin Prep By (2): RICK EDGAR 2nd Skin Prep Agent: CHLORAPREP Preop Surgical Site Hair Removal by: N/A Surgical Site Hair Removal Method: NO HAIR REMOVED Hair Removal Comments: NO COMMENTS ENTERED Surgery Position(s): Cameron's - Beach Chair (Modified sitting)Placed: N/A Electrocautery Unit: [id number] ESU Coagulation Range: 0-40 ESU Cutting Range: 0-40 Electroground Position(s): RIGHT ANT THIGH Anesthesia Technique(s): GENERAL Prosthesis Installed: Item: REV SHOULDER PLATE Implant Sterility Checked (Y/N): YES Sterility Expiration Date: APR 16, 2029 RN Assembly Machine Tender: GODWIN VIZCARRA Vendor: [employer] Model: [id number] Lot Number: [id number] Serial Number: modular post baseplate MGS Sterile Resp: BRUSH OPERATOR Size: 20mm Quantity: 1 Provider Read Back Performed: YES Item: REV SHOULDER PLATE Implant Sterility Checked (Y/N): YES Sterility Expiration Date: FEB 14, 2029 RN Assembly Machine Tender: GODWIN VIZCARRA Vendor: [employer] Model: [id number] Lot Number: [id number] Serial Number: 10 full augment +2 lat oblique Sterile Resp: BRUSH OPERATOR Size: 24mm baseplate Quantity: 1 Provider Read Back Performed: YES Item: REV SHOULDER SCREW Implant Sterility Checked (Y/N): YES Sterility Expiration Date: JAN 15, 2029 RN Assembly Machine Tender: GODWIN VIZCARRA Vendor: [employer] Model: [id number] Lot Number: [id number] Serial Number: PERIPHERAL SCREW,NON-LOCKING Sterile Resp: BRUSH OPERATOR Size: 4.5 x 28 mm Quantity: 1 Provider Read Back Performed: YES Item: REV SHOULDER SCREW Implant Sterility Checked (Y/N): YES Sterility Expiration Date: APR 16, 2028 RN Assembly Machine Tender: GODWIN VIZCARRA A Vendor: [employer] Model: [id number] Lot Number: [id number] Serial Number: PERIPHERAL SCREW,NON-LOCKING Sterile Resp: BRUSH OPERATOR Size: 4.5 x 24 mm Quantity: 1 Provider Read Back Performed: YES Item: REV SHOULDER SCREW Implant Sterility Checked (Y/N): YES Sterility Expiration Date: JUN 17, 2029 RN Assembly Machine Tender: GODWIN VIZCARRA A Vendor: [employer] Model: [id number] Lot Number: [id number] Serial Number: PERIPGERAL SCREW,LOCKING Sterile Resp: BRUSH OPERATOR Size: 5.5 X 16 MM Quantity: 1 Provider Read Back Performed: YES Item: REV SHOULDER SCREW Implant Sterility Checked (Y/N): YES Sterility Expiration Date: JAN 15, 2029 RN Assembly Machine Tender: GODWIN VIZCARRA Vendor: [employer] Model: [id number] Lot Number: [id number] Serial Number: PERIPHERAL SCREW,LOCKING Sterile Resp: BRUSH OPERATOR Size: 5.5 X 20 mm Quantity: 1 Provider Read Back Performed: YES Item: GLENOSPHERE Implant Sterility Checked (Y/N): YES Sterility Expiration Date: MAY 17, 2029 RN Assembly Machine Tender: GODWIN VIZCARRA Vendor: [employer] Model: [id number] Lot Number: [id number] Serial Number: MODULAR GLENOID SYSTEM Sterile Resp: BRUSH OPERATOR Size: 36+4LAT/24 Quantity: 1 Provider Read Back Performed: YES Item: SHOULDER, HUMERAL STEM IMPLANT Implant Sterility Checked (Y/N): YES Sterility Expiration Date: APR 16, 2028 RN Assembly Machine Tender: GODWIN VIZCARRA Vendor: [employer] Model: [id number] Lot Number: [id number] Serial Number: NA Sterile Resp: BRUSH OPERATOR Size: 9 Quantity: 1 Provider Read Back Performed: YES Item: UNLISTED IMPLANT Implant Sterility Checked (Y/N): YES Sterility Expiration Date: APR 16, 2029 RN Assembly Machine Tender: GODWIN VIZCARRA Vendor: [employer] Model: [id number] Lot Number: [id number] Serial Number: SUTURE CUP Sterile Resp: BRUSH OPERATOR Size: 36, +2,RIGHT Quantity: 1 Provider Read Back Performed: YES Item: REV HUMERAL Implant Sterility Checked (Y/N): YES Sterility Expiration Date: MARCH 17, 2029 RN Assembly Machine Tender: LUCIO VIZCARRAINE A Vendor: [employer] Model: [id number] Lot Number: [id number] Serial Number: HUMERAL INSERT Sterile Resp: BRUSH OPERATOR Size: SMALL,36, +3 Quantity: 1 Provider Read Back Performed: YES Medications: VANCOMYCIN 1GM INJ Time Administered: JAN 10, 2025 12:15 Route: TOPICAL Dosage: 1 G Ordered By: GRISELDA KIM Admin By: GRISELDA KIM Comments: DISPENSED TO STERILE FIELD BUPIVACAINE 0.25% 30ML (PF) INJ Time Administered: JAN 10, 2025 12:15 Route: INFILTRATE Dosage: 20 ML Ordered By: GRISELDA KIM Admin By: GRISELDA KIM Comments: DISPENSED TO STERILE FIELD Irrigation Solution(s): SURGIPHOR Time Used: JAN 10, 2025 12:28 Amount: per md Provider: GRISELDA KIM IRRISEPT Time Used: JAN 10, 2025 12:28 Amount: per md Provider: GRISELDA KIM Possible Item Retention: * NOT ENTERED * Sponge Final Count Correct: YES Sharps Final Count Correct: YES Instrument Final Count Correct: NOT APPLICABLE Wound Sweep: YES Wound Sweep Comment: PERFORMED BY SURGEON PRIOR TO WOUND CLOSURE Intra-Operative X-Ray: YES Intra-Operative X-Ray Comment: INTRAOPERATIVE XRAY PERFORMED PER HOSPITAL POLICY, NO RETAIN SURGICAL INSTRUMENTS VERIFIED BY SURGEON Counter: SHERMAN RAMIREZ Counts Verified By: GODWIN VIZCARRA Dressing: PRINEO,SILVERLON,SLINGSHOT Blood Loss: 50 ml Urine Output: Postoperative Mood: RELAXED Postoperative Consciousness: RESTING Postoperative Skin Integrity: FRESH INCISION Sequential Compression Device: YES Immediate Use Steam Sterilization Episodes: Contamination: 0 SPS Processing/OR Management Issues: 0 Emergency Case: 0 No Better Option: 0 Loaner or Short Notice Instrument: 0 Decontamination of Instruments Contaminated During the Case: 0 Nursing Care Comments: SEE CPRS NOTES /es/ GODWIN VIZCARRA RN OR Signed: 01/10/2025 14:35 GODWIN VIZCARRA [facility] Jan 10, 2025 11:35 AM OPERATIVE REPORT: LOCAL TITLE: OPERATION REPORT STANDARD TITLE: OPERATIVE REPORT DATE OF NOTE: JAN 10, 2025@11:35 ENTRY DATE: JAN 10, 2025@14:30:35 SURGEON: BARBARA WOLF ATTENDING: GRISELDA KIM URGENCY: STATUS: COMPLETED SUBJECT: Case #: [id number] PREOPERATIVE DIAGNOSES: 1. Right shoulder rotator cuff arthropathy. 2. H/o COPD on baseline O2. 3. H/o CAD. POSTOPERATIVE DIAGNOSES: 1. Right shoulder rotator cuff arthropathy. 2. H/o COPD on baseline O2. 3. H/o CAD. OPERATIONS PERFORMED: Right reverse total shoulder arthroplasty with biceps tenodesis. ATTENDING SURGEON: Griselda Kim MD RESIDENT SURGEON: Barbara Wolf MD. G5 ANESTHESIA: General with peripheral block by Anesthesia. ESTIMATED BLOOD LOSS: 50 cc, SPECIMENS REMOVED: None. FINDINGS: Extensive osteoarthritis including wear and osteophytes. Intact biceps tendon but frayed. Intact subscap and repaired at end of case. IMPLANTS: 1. Univers reverse modular glenoid system, glenosphere, 36, +4 lateralized. 2. Univers reverse modular glenoid system, central post, modular, 20 mm. 3. Univers reverse modular glenoid system baseplate, modular, 24 mm, +2 lateralized, with full oblique 10-degree augment. 4. Univers reverse modular glenoid system peripheral screw, nonlocking 4.5 x 28 mm and 4.5 x 24 mm. 5. Univers reverse modular glenoid system peripheral screw, locking 5.5 x 16 mm and 5.5 x 20 mm. 6. Univers reverse humeral liner 36, +3. 7. Univers revers [place] humeral stem, size 9. 8. Univers reverse suture cup 36, +2 R. INDICATION FOR OPERATION: 69-year-old male with extensive past medical history with chronic right shoulder pain in the setting of full-thickness tears to the supraspinatus/infraspinatus with significant atrophy. Patient trialed extensive conservative therapy in the form of activity modification, physical therapy, subacromial injections with insufficient relief. Patient with ongoing pain impacting his overall quality of life. After discussion of the risks, benefits, and alternatives to treatment, he elected to proceed with a right reverse total shoulder arthroplasty. DESCRIPTION OF OPERATION: The patient was met in the preoperative holding area and the signed consent was reviewed and the correct side was marked. Anesthesia performed a peripheral block - please see their dictation for details. He was brought into the operating room theater where a brief was performed. General anesthesia was induced. He was placed in a beach chair position and the head was placed in a hogshead opener with the neck in neutral position. The right upper extremity was prepped and draped in a standard sterile fashion. A timeout was performed identifying the correct patient, site and procedure. All in the room agreed. An incision was made from the coracoid down to the mid humerus, approximately 11 cm in length. The cephalic vein was identified, mobilized, and retracted laterally, allowing visualization of the deltopectoral interval. The deltopectoral interval was mobilized bluntly. The subdeltoid adhesions were freed and the clavipectoral fascia was identified. The clavipectoral fascia was freed up allowing identification of the superior border of the pectoralis major tendon. At its bony insertion, the long head of the biceps tendon was palpable. The overlying fascia/soft tissue was released with electrocautery and the biceps tendon was delivered into the wound with the use of a 90-degree clamp. 1.5 cm of the pectoralis major tendon was released with electrocautery to provide further exposure of the biceps tendon. A soft tissue biceps tenodesis with fiberwire suture was performed to the pectoralis major tendon and biceps tendon was tenotomized proximally. The biceps tendon was followed proximally and the bicipital groove was opened with electrocautery until its proximal most aspect as it entered the shoulder joint; it was then truncated. The coracoacromial ligament was identified and a retractor was placed under the CA ligament to better allow visualization of the subscapularis and rotator interval. Anterior circumflex humeral vessels were identified, ligated, and divided with electrocautery. The arm was externally rotated. A subscapularis peel was performed with the use of electrocautery, starting just medial to the bicipital groove; it was tagged with two fiberwire sutures and released medially to allow better exposure of the glenohumeral articulation and the overlying capsule. Capsule was released inferiorly and posteriorly to better allow external rotation and better visualization of the humeral head. The humeral head was delivered. The starting reamer was used to gain access to the intramedullary canal. An intramedullary guide omid was reamed at the anatomic neck in line with the humeral intramedullary canal. Sequential hand reaming was performed until a size 6/7 had good fit. 135-degree cutting jig and 30 degrees of retroversion was applied and the humeral head cut was performed followed by application of a humeral protector. Attention was then turned towards the glenoid. A Fukuda retractor was placed about the posterior aspect of the glenoid to retract the humerus out of the way. A Batman retractor was placed anterosuperiorly. The remaining labrum, capsule, and rotator cuff that was interposed between our exposure and glenoid was removed with electrocautery. At this time, we were struggling with posterior glenoid exposure and thus the retractors were removed and the humerus was recut, taking an additional 2-3 mm of bone. The center of the glenoid was identified with the help of a custom guide and a center guidepin was placed slightly inferiorly. The pin was advanced, drilled, and tapped. The boot was used to assess the size of the baseplate that would be appropriate. A 36 mm would fit well with slight anterior overhang. The glenoid was then reamed for placement of a 24 mm modular baseplate with a central post. The offset reamer was used and positioned so that the planned 10-degree oblique augment could be positioned posteriorly (at 9 o'clock on the glenoid). The final baseplate was impacted into place and was confirmed to be flush with a freer elevator. Two non-locking screws were placed superior and inferior in the baseplate. Two locking screws were then placed anterior and posterior in the baseplate. We attempted to place the glenosphere but again the humerus was in the way. An additional 2 mm of humerus was resected and the medium protector replaced. Now, A 36, +4 lateralized glenosphere was placed without issue. Central screw was then placed and seated, confirming appropriate position of the glenosphere and tighted to 4 merrill/meters. Attention was turned back to the humerus. The humerus was sequentially broached up to a size 9 which had good fit. This was implanted deep and reamed with a circular reamer. An offset trial neck/cup +3 lateralization were placed and the humerus was reduced. An examination under anesthesia assessing the patient's stability to anterior/posterior shaft and full range of motion with forward elevation, abduction/internal rotation, abduction, and external rotation were performed with great stability. The shoulder was re-dislocated. The trial components were removed and 3 tunnels were made with a 2.0 drill bit. Two fiberwires were passed for the subscapularis repair and clamped. The final implants were placed. Irrisept and betadine were both used to irrigate the wound thoroughly. The shoulder again demonstrated excellent ROM with forward flexion, external rotation, and interal rotation to the contralateral shoulder without impingement and stability. The wound was irrigated thoroughly with sterile saline. The subscapularis was repaired with the two #2 FiberWire sutures that had been placed previously in the humeral shaft. The tails of the fiberwire were then used to repair the rotator interval. Vancomycin powder was placed and a layered closure was performed with the deltopectoral interval approximated with 0 stratafix in a running fashion. The deep dermis was closed with 2-0 vicryl in an interrupted fashion. The skin was closed with a running 3-0 monocryl. Prineo dressing was placed with an overlying Silverlon dressing. The patient was extubated and awoken in standard fashion. He was transported to the recovery room in stable condition. All counts were correct at the end of the case. Dr. Kim was present for the entirety of the procedure. POSTOPERATIVE PLAN: Non-weightbearing, right upper extremity. Abduction sling to right shoulder. To start PT according to reverse total shoulder arthroplasty PT protocol. Lovenox 30 mg twice daily in-house and discharge on Aspirin x6 weeks for deep venous thrombosis prophylaxis. Keep on supplemental O2 inpatient (on home O2 at baseline). Full medical comanagement appreciated, given comorbidities. PT and OT prior to discharge. Follow-up at two weeks and then six weeks with x-rays. Postoperative films showed Glenosphere in good position without acute fractures or dislocations. /kyle/ BARBARA WOLF MD RESIDENT Signed: 01/11/2025 07:19 /kyle/ GRISELDA KIM MD STAFF SURGEON Cosigned: 01/11/2025 07:44 BARBARA WOLF [facility] Jan 10, 2025 11:25 AM SURGERY NURSING NOTE: LOCAL TITLE: SURGERY CENTER NURSING NOTE STANDARD TITLE: SURGERY NURSING NOTE DATE OF NOTE: JAN 10, 2025@11:25 ENTRY DATE: JAN 10, 2025@09:13:31 AUTHOR: KATY SHAFFER EXP COSIGNER: URGENCY: STATUS: COMPLETED Surgery Center Nursing Note Pre-Op Date/time in: Dec@08:25 Patient Identification: verbal, ID band on, Allergies verified Does patient consent to having their name included in the hospital directory? (So that hospital staff may acknowledge that the patient is in the hospital and give relatives/friends general information regarding their status) Yes Participant(s) statement of procedure: Right shoulder replacement Responsible person with patient today: NA: Patient being admitted: no one here Verified 24 hour supervision Allergies: LISINOPRIL (February 18, 2009) LOSARTAN (February 18, 2009) AMLODIPINE (Jun 18, 2009) DEMEROL HYDROCHLORIDE INJECTION 50 MG/ML (March 04, 2014) GABAPENTIN (Jan 23, 2016) DULOXETINE (Feb 11, 2016) Vital Signs Pain: 7 Pain location: 7/10 generalized, knees, shoulder, back, hands Temperature: 98 Blood Pressure: 128/73 Pulse: 61 Respirations: 16 O2 Saturation: 97% 2L NC (on home O2) Cardiac Rhythm: SR 1AVB Patient instructed on use of pain scale: Yes Verbalizes understanding: Yes Does patient have chronic pain: Yes Code Status: Full Code Surgical consent signed within 60 days: Yes Correct Surgical Site Marked or ID band labeled with surgical procedure: Yes Staff Note Within 24 Hours: Yes History and Physical Within 30 Days: Yes History and Physical updated within 24hrs of surgery: Yes Participant(s) instructed on perioperative plan of care: Yes Verbalizes understanding: Yes Relevant preoperative emotional, spiritual, safety and psychological needs met: Yes Finger Stick Blood Glucose: Result: 155 Time: 0835 PT/INR: Result: see lab results, done 01/10/25 Right surgical upper limb pulse assessed and marked: Right radial: palpable Left surgical upper limb pulse assessed and marked: Left radial: palpable NEURO ASSESSMENT alert, oriented AMBULATION AND TRANSFER Does the patient need assistance with ambulation or transfers? Yes, right knee brace, wears home O2, came in pushing a wheelchair, reports some recent near falls but denies any actual falls SKIN PREP Pre-procedure skin prep done by patient?: Yes Surgical clipping completed by RN in pre-op: No - see NA clipping note Pre-op cleanse completed by RN: No - see NA clipping note SKIN INTEGRITY: Intact PRE-EXISTING IV: No pre-existing Conor-Cath, Branham or Picc. Obtained information below from: Patient NPO since midnight: Yes Pre-Procedure medications: Did patient take preordered oral antibiotic prior to arrival: Not applicable DVT Prophylaxis Pneumatic compression Nursing action on preordered medication prior to surgery: Pre-Op IV Antibiotic Sent with patient to OR Does the patient have an active order for a beta nelly, (e.g., metoprolol, atenolol, etc): Yes Did the patient take all of their prescribed medication during the past 24 hours up unitl this AM? Yes Is patient taking any anticoagulation, any antiplatelet agent, any thrombin inhibitor or thrombolytic agent? (This includes ASA, Heparin drip, or SQ injection): Yes, What drug and when last dose was taken: ASA patient is unsure of last dose Does the patient have on any medication patches: No Has the patient received any chemo/immunotherapy agents in the past 48 hours? No Does the patient have any implantable device (e.g. pacemaker, infusion pump, nerve stimulator, etc...) No Location of patients personal items: All personal belongings locked in surgery center locker room. Medication reconciliation completed by nurse: Yes IV insertion: Site: left forearm Gauge: 18 Site was cleansed and prepared with Cloraprep. Sterile tegaderm dressing applied and dated. Blood products available: Type and Screen (within 3 days) Surgery specific assessment: /kyle/ KATY SHAFFER Registered Nurse Signed: 01/10/2025 11:27 KATY SHAFFER [facility] Jan 10, 2025 11:18 AM SURGERY NOTE: LOCAL TITLE: SURGERY OR NOTE STANDARD TITLE: SURGERY NOTE DATE OF NOTE: JAN 10, 2025@11:18 ENTRY DATE: JAN 10, 2025@11:18:17 AUTHOR: BARBARA WOLF EXP COSIGNER: URGENCY: STATUS: COMPLETED SURGERY OPERATION NOTE PREOPERATIVE DIAGNOSIS: Right shoulder rotator cuff arthropathy H/o COPD on baseline O2 H/o CAD POSTOPERATIVE DIAGNOSIS: Right shoulder rotator cuff arthropathy H/o COPD on baseline O2 H/o CAD OPERATIONS PERFORMED: 1. Right reverse total shoulder arthroplasty with biceps tenodesis ATTENDING SURGEON: Dr. Kim RESIDENT SURGEON: Muna Wolf ANESTHESIA: General with peripheral block by anesthesia ESTIMATED BLOOD LOSS: 50 cc SPECIMENS REMOVED: None FINDINGS: Extensive osteoarthritis including wear and osteophytes. Intact biceps tendon but frayed. Intact subscap and repaired at end of case. IMPLANTS: 1. Univers reverse modular glenoid system, glenosphere, 36, +4 lateralized 2. Univers reverse modular glenoid system, central post, modular, 20 mm 3. Univers reverse modular glenoid system baseplate, modular, 24 mm, +2 lateralized, with Full oblique 10 degree augment 4. Univers reverse modular glenoid system peripheral screw, nonlocking 4.5 x 28 mm and 4.5 x 24 mm 5. Univers reverse modular glenoid system peripheral screw, locking 5.5 x 16 mm and 5.5 x 20 mm 6. Univers reverse humeral liner 36, +3 7. Univers revers [place] humeral stem size 9 8. Univers reverse suture cup 36, +2 R INDICATION FOR OPERATION: 69-year-old male with extensive past medical history with chronic right shoulder pain in the setting of full- thickness tears to the supraspinatus/infraspinatus with significant atrophy. Patient trialed extensive conservative therapy in the form of activity modification, physical therapy, subacromial injections with insufficient relief. Patient with ongoing pain impacting his overall quality of life. After discussion of the risks, benefits, and alternatives to treatment he elected to proceed with a right reverse total shoulder arthroplasty. DESCRIPTION OF OPERATION: The patient was met in the preoperative holding area and the signed consent was reviewed and the correct side was marked. Anesthesia performed a peripheral block - please see their dictation for details. He was brought into the operating room theater where a brief was performed. General anesthesia was induced. He was placed in a beach chair position and the head was placed in a hogshead opener with the neck in neutral position. The right upper extremity was prepped and draped in a standard sterile fashion. A timeout was performed identifying the correct patient, site and procedure. All in the room agreed. An incision was made from the coracoid down to the mid humerus, approximately 11 cm in length. The cephalic vein was identified, mobilized, and retracted laterally, allowing visualization of the deltopectoral interval. The deltopectoral interval was mobilized bluntly. The subdeltoid adhesions were freed and the clavipectoral fascia was identified. The clavipectoral fascia was freed up allowing identification of the superior border of the pectoralis major tendon. At its bony insertion, the long head of the biceps tendon was palpable. The overlying fascia/soft tissue was released with electrocautery and the biceps tendon was delivered into the wound with the use of a 90 degree clamp. 1.5 cm of the pectoralis major tendon was released with electrocautery to provide further exposure of the biceps tendon. A soft tissue biceps tenodesis with fiberwire suture was performed to the pectoralis major tendon and biceps tendon was tenotomized proximally. The biceps tendon was followed proximally and the bicipital groove was opened with electrocautery until its proximal most aspect as it entered the shoulder joint; it was then truncated. The coracoacromial ligament was identified and a retractor was placed under the CA ligament to better allow visualization of the subscapularis and rotator interval. Anterior circumflex humeral vessels were identified, ligated, and divided with electrocautery. The arm was externally rotated. A subscapularis peel was performed with the use of electrocautery, starting just medial to the bicipital groove; it was tagged with two fiberwire sutures and released medially to allow better exposure of the glenohumeral articulation and the overlying capsule. Capsule was released inferiorly and posteriorly to better allow external rotation and better visualization of the humeral head. The humeral head was delivered. The starting reamer was used to gain access to the intramedullary canal. An intramedullary guide omid was reamed at the anatomic neck in line with the humeral intramedullary canal. Sequential hand reaming was performed until a size 6/7 had good fit. 135 degree cutting jig and 30 degrees of retroversion was applied and the humeral head cut was performed followed by application of a humeral protector. Attention was then turned towards the glenoid. A Fukuda retractor was placed about the posterior aspect of the glenoid to retract the humerus out of the way. A Batman retractor was placed anterosuperiorly. The remaining labrum, capsule, and rotator cuff that was interposed between our exposure and glenoid was removed with electrocautery. At this time we were struggling with posterior glenoid exposure and thus the retractors were removed and the humerus was recut, taking an additional 2-3 mm of bone. The center of the glenoid was identified with the help of a custom guide and a center guidepin was placed slightly inferiorly. The pin was advanced, drilled, and tapped. The boot was used to assess the size of the baseplate that would be appropriate. A 36 mm would fit well with slight anterior overhang. The glenoid was then reamed for placement of a 24 mm modular baseplate with a central post. The offset reamer was used and positioned so that the planned 10 degree oblique augment could be positioned posteriorly (at 9 o clock on the glenoid). The final baseplate was impacted into place and was confirmed to be flush with a freer elevator. Two nonlocking screws were placed superior and inferior in the baseplate. Two locking screws were then placed anterior and posterior in the baseplate. We attempted to place the glenosphere but again the humerus was in the way. An additional 2 mm of humerus was resected and the medium protector replaced. Now, A 36, +4 lateralized glenosphere was placed without issue. Central screw was then placed and seated confirming appropriate position of the glenosphere and tighted to 4 merrill/meters. Attention was turned back to the humerus. The humerus was sequentially broached up to a size 9 which had good fit. This was implanted deep and reamed with a circular reamer. An offset trial neck/cup +3 lateralization were placed and the humerus was reduced. An examination under anesthesia assessing the patient's stability to anterior/posterior shaft and full range of motion with forward elevation, abduction/internal rotation, abduction, and external rotation were performed with great stability. The shoulder was redislocated. The trial components were removed and 3 tunnels were made with a 2.0 drill bit. Two fiberwires were passed for the subscapularis repair and clamped. The final implants were placed. Irrisept and betadine were both used to irrigate the wound thoroughly. The shoulder again demonstrated excellent ROM with forward flexion, external rotation, and interal rotation to the contralateral shoulder without impingement and stability. The wound was irrigated thoroughly with sterile saline. The subscapularis was repaired with the two #2 FiberWire sutures that had been placed previously in the humeral shaft. The tails of the fiberwire were then used to repair the rotator interval. Vancomycin powder was placed and a layered closure was performed with the deltopectoral interval approximated with 0 stratafix in a running fashion. The deep dermis was closed with 2-0 vicryl in an interrupted fashion. The skin was closed with a running 3-0 monocryl. Prineo dressing was placed with an overlying Silverlon dressing. The patient was extubated and awoken in standard fashion. He was transported to the recovery room in stable condition. All counts were correct at the end of the case. Dr. Kim was present for the entirety of the procedure. POSTOPERATIVE PLAN: Non-weightbearing right upper extremity. Abduction sling to right shoulder. To start PT according to reverse total shoulder arthroplasty PT protocol. Lovenox 30 BID in house and discharge on Aspirin x6 weeks for deep venous thrombosis prophylaxis. Keep on supplemental O2 inpatient (on home O2 at baseline). Full medical comanagement appreciated, given comorbidities. PT and OT prior to discharge. Follow-up at two weeks and then six weeks with x-rays. Postoperative films showed Glenosphere in good position without acute fractures or dislocations. /kyle/ BARBARA WOLF MD RESIDENT Signed: 01/10/2025 15:38 BARBARA WOLF [facility] Jan 10, 2025 11:14 AM SURGERY OPERATIVE NOTE: LOCAL TITLE: POST-OPERATIVE NOTE STANDARD TITLE: SURGERY OPERATIVE NOTE DATE OF NOTE: JAN 10, 2025@11:14 ENTRY DATE: JAN 10, 2025@11:14:49 AUTHOR: BARBARA WOLF EXP COSIGNER: URGENCY: STATUS: COMPLETED Date of Procedure: Dec Time Procedure Ended: Dec@15:00 Pre-operative Diagnosis: Right shoulder cuff tear arthropathy Post-Operative Diagnosis: Same Procedure: 1. Reverse right shoulder arthroplasty Anesthesia: General + peripheral block by air bag stripper Surgeon(s): Muna Wolf Staff Surgeon:Dr. Kim Significant Findings: Estimated Blood Loss: 100 ml. Specimens: No specimens removed Drains or Tubes: None Complications: None Disposition: [facility] Primary Med comanagement - Activity: Up with assistive device/WC. Maria Fernanda okay - ROM/Precautions: No shoulder ROM - Weight Bearing Status: NWB RUE - Diet: ADAT - Pain: PRN PO medications with IV available - Antibiotics: ancef x 24h - DVT Prophylaxis: Aspirin 162 x 6 weeks - Dressing: Silverlon c/d/i x 2 weeks - Sutures: absorbable - Blue: None - Labs: CBC, BMP on POD1 - On home O2 at baseline, continue inpatient - Imaging: completed intraop - Elevation/ice as much as tolerated - Brace: ultrasling RUE at all times - PT/OT: Eval and treat starting POD#1 - Follow-up: Follow-up at two weeks and then six weeks with x-rays. Muna Wolf /kyle/ BARBARA WOLF MD RESIDENT Signed: 01/10/2025 14:43 BARBARA WOLF [facility] Jan 10, 2025 11:11 AM SURGERY NURSING NOTE: LOCAL TITLE: SURGERY CENTER NURSING NOTE STANDARD TITLE: SURGERY NURSING NOTE DATE OF NOTE: JAN 10, 2025@11:11 ENTRY DATE: JAN 10, 2025@11:11:20 AUTHOR: KATY SHAFFER EXP COSIGNER: URGENCY: STATUS: COMPLETED Surgery Center Nursing Note Regional Block ERIBERTO Burciaga MD Pre-procedure assessment completed Patient prepped for procedure, placed on monitor technician with EKG rhythm strip printed, O2 saturation with blood pressure checks q5 min throughout block, and patent IV. O2 Nasal Cannula Flow Liters: 2 Procedure timeout per hospital policy number [id number]: [id number] Modified Bianka Score (Expanded option) Oxygentation 1 point - Needs supplemental oxygen to maintain saturation >90% Consciousness: 2 points - Fully awake Circulation: 2 points - BP within 20 mm Hg of preoperative level Breathin points - Able to breathe deeply and cough freely Activity Level: 2 points - Moves all extremities voluntarily/on command Total Bianka Score: 9 Medications: Time/Medication/Dose/Route/G iven by: Fentanyl 25mcg IVP at 1041 Time/Medication/Dose/Route/G iven by: Fentanyl 25mcg IVP at 1046 Regional block medications: See anesthesia regional block note. Vital signs Pre-procedure: Blood Pressure: 134/75 Heart Rate/Rhythm: 61 Respirations: 16 Pulse Oximetry: 98 Vital Signs Time: 1043 Blood Pressure: 143/72 Heart Rate/Rhythm: 54 Respirations: 16 Pulse Oximetry: 100 Vital Signs Time: 1046 Blood Pressure: 140/71 Heart Rate/Rhythm: 49 Respirations: 16 Pulse Oximetry: 99 Vital Signs Time: 1050 Blood Pressure: 147/80 Heart Rate/Rhythm: 59 Respirations: 16 Pulse Oximetry: 97 Procedure end time: 1052 Vital Signs Time: 1055 Blood Pressure: 140/65 Heart Rate: 50 SB Respirations: 16 Cardiac Rhythm: SR Pulse Oximetry: 98 Vital Signs Time: 1100 Blood Pressure: 140/72 Heart Rate/Rhythm: 62 Respirations: 16 Pulse Oximetry: 99 Vital Signs Time: 1115 Blood Pressure: 125/67 Heart Rate/Rhythm: 58 Respirations: 16 Pulse Oximetry: 98 Laterality: Right Type of block: Supraclavicular, Axillary Expected duration of block: 18 hours. Nursing note: patient conversive and comfortable for duration of procedure Yellow socks applied for lower extremity block (falls risk) Peripheral Nerve Block discharge instruction sheet sent with patient. Patient tolerated procedure well with no evidence of lidocaine toxicity. /kyle/ KATY SHAFFER Registered Nurse Signed: 01/10/2025 11:26 KATY SHAFFER [facility] Jan 10, 2025 10:08 AM CONSENT: LOCAL TITLE: CONSENT CLINICAL IMED STANDARD TITLE: CONSENT DATE OF NOTE: JAN 10, 2025@10:08:27 ENTRY DATE: JAN 10, 2025@10:08:32 AUTHOR: ROMEO DEL CID COSIGNER: URGENCY: STATUS: COMPLETED VistA Imaging - Scanned Document Signature Informed Consent for Peripheral Nerve Block 1. Anatomical Location: Right brachial plexus block versus right superior trunk block versus right suprascapular nerve block +/- [right axillary nerve block +/- versus right posterior cord block] +/- right superficial cervical plexus block +/- right intercostobrachial nerve block 2. Informed consent was obtained at 10:00 AM on 01/10/25. The full consent document can be accessed through [email or web address]. 3. Patient name: KEENA ARMENDARIZ 4. The patient HAS decision-making capacity. 5. Surrogate (if applicable): 6. Reason for the treatment (diagnosis, condition, or indication): Pain due to an injury or surgery. 7. Treatment/procedure: A peripheral nerve block is a procedure in which a part of the body is made numb by injecting local anesthetics (numbing medication) near one or more nerves. The local anesthetic blocks transmission of nerve impulses, which can cause both temporary loss of sensation and movement of muscles controlled by the blocked nerve. The anesthesia provider performs a peripheral nerve block in the following manner. If the doctor deems necessary, an intravenous (IV) line may be started and standard monitors may be applied. Before the injection, the skin is cleaned with an antiseptic solution to prevent infection. A local anesthetic is injected through a tiny needle to numb the skin and deeper tissues. A nerve block needle is inserted and placed near the peripheral nerve. With certain blocks, correct placement is confirmed by either seeking a paresthesia or the use of a nerve stimulator. A paresthesia is a temporary sensation, similar to the sensation that occurs when the funny bone is struck. This sensation indicates that the needle is positioned near the peripheral nerve. A nerve stimulator applies a tiny electrical impulse to the nerve block needle that makes a muscle twitch when the needle is appropriately placed. After the needle is correctly positioned, local anesthetic medications are injected. Loss of sensation and movement in the particular nerve distribution occurs gradually over a 10 to 30 minute time period. A catheter (thin tube) may be left in place and used to administer local anesthetics for as long as a few days. 8. Anesthesia will be administered. A member of the anesthesia care team will visit you before your treatment to discuss the type(s) of anesthesia you may need and to give you more information about anesthesia. It may become necessary to alter your anesthesia care plan after this discussion. Devices may be applied to your body and placed in your veins and arteries to monitor you during your anesthesia. All forms of anesthesia involve some risk. Minor (not life-threatening) risks include: nausea, vomiting, and pain where an injection is given. Although rare, severe complications include: injury to blood vessels, drug reactions, bleeding, blood clots, loss of sensation or limb function, infection, paralysis, stroke, brain damage, heart attack, and . Here is a basic description of the major types of anesthesia including their risks in addition to those described above: General anesthesia involves drugs that are injected into the bloodstream or breathed into the lungs. A tube or other device may be inserted into your airway to help you breathe. The expected benefit is that you will be totally unconscious and you will not feel pain during the procedure. Additional risks include: injury to the teeth, throat, eyes, or lung. In less than one case in a thousand, patients may be aware of activities during their surgery. Spinal or epidural analgesia/anesthesia involves a drug being injected through a needle or catheter placed into the spinal canal. The expected benefit is a temporary decreased feeling in the area of surgical incision, allowing surgery to proceed without pain. Additional risks include: headache, backache, convulsions, persistent weakness and or numbness, abnormal heart rhythms, and incomplete pain relief during the operation that may require general anesthesia. Major/minor nerve block involves a drug being injected near nerves providing loss or reduction of sensation and movement to the area. The expected benefit is a temporary loss of feeling and/or movement of a specific limb or area of your body. Additional risks include: convulsions, persistent weakness and or numbness, and incomplete pain relief during the operation that may require general anesthesia. Monitored anesthesia care involves monitoring of the heart and lungs to make sure that they are functioning adequately during your procedure. A local anesthetic will be injected to prevent pain, and the anesthesia care provider may use drugs to help you relax, and lessen any pain. You may remain conscious throughout your procedure, or you may be given medications that will make you unconscious. The expected benefit is that you will be comfortable during your operation with a minimum amount of anesthesia. This may result in a shorter stay in the hospital. Additional risks include: incomplete pain relief during the operation that may require additional anesthesia. Convulsions from the injected drug are a rare but serious complication. 9. Consent to Blood Products (if applicable): It is not expected that blood products will be used in this treatment/procedure. 10. Practitioner obtaining consent: Contreras Arreola 11. Supervising practitioner: Chilango Burciaga MD 12. Practitioner(s) performing or supervising treatment/procedure (if not listed above): Albaro Luu MD 13. Witness Name(s): 14. Comments: SCANNED DOCUMENT SIGNATURE NOT REQUIRED Electronically Filed: 01/10/2025 by: ROMEO DEL CID [facility] Jan 10, 2025 08:47 AM SURGERY ATTENDING PRE OPERATIVE E & M NOTE: LOCAL TITLE: PRE-OP SURGERY STAFF NOTE STANDARD TITLE: SURGERY ATTENDING PRE OPERATIVE E & M NOTE DATE OF NOTE: JAN 10, 2025@08:47 ENTRY DATE: JAN 10, 2025@08:47:25 AUTHOR: GRISELDA KIM COSIGNER: URGENCY: STATUS: COMPLETED Pre-Operative Staff Note Diagnosis/findings: right shoulder rotator cuff arthropathy Planned Procedure: right reverse total shoulder arthroplasty Case discussed with resident, patient seen and examined. Pertinent history, imaging and pathology reports reviewed. Patient informed of alternatives, risks and benefits. Agree with diagnosis, findings, preoperative assessment and planned procedure or treatment plan. I have reviewed the Winters's medications &/or the Drug Reconciliation from pharmacy: No changes have been made No data available for: LIFE-SUSTAINING TREATMENT Life Sustaining Treatment Orders /kyle/ GRISELDA KIM MD STAFF SURGEON Signed: 01/10/2025 08:47 GRISELDA KIM [facility] Jan 10, 2025 08:46 AM SURGERY H & P NOTE: LOCAL TITLE: H&P SURGICAL UPDATE STANDARD TITLE: SURGERY H & P NOTE DATE OF NOTE: JAN 10, 2025@08:46 ENTRY DATE: JAN 10, 2025@08:46:51 AUTHOR: GRISELDA KIM COSIGNER: URGENCY: STATUS: COMPLETED H&P Surgical Update Note The patient was assessed prior to anesthesia induction on the day of surgery and no change in patient condition was noted. I have reviewed the 's medications &/or the Drug Reconciliation from pharmacy. No changes have been made No data available for: LIFE-SUSTAINING TREATMENT Life Sustaining Treatment Orders /es/ GRISELDA KIM MD STAFF SURGEON Signed: 01/10/2025 08:47 GRISELDA KIM [facility]
--- OUTSIDE RECORDS SUMMARY | 2025-01-16 08:09 | XMS_ITS ---
[place] DAILY HOSPITALIZATION DATA [facility] Encounter Summary Created on: January 16, 2025 KEENA ROSA : 1955 Sex: Male Author Name [facility] [employer] [facility] [place] Organization [facility] [place] Address [address] [place] [address] Care Team Providers Care Financial Services Sales Representative Name Role Phone ZENY MARTIN Primary Care [...] PART A Oct 18, 2013 PART A [id number] [phone] Mary ROSA PATIENT MEDICARE (WNR) MEDICARE (M) PART B Oct 18, 2013 PART B [id number] [phone] Mary ROSA EOMIRELAD PATIENT MEDICARE (WNR) MEDICARE (M) PART A Oct 18, 2013 PART A [id number] Mary ROSA PATIENT Selected Encounter This section includes the information on record at [place] for the Encounter. Date/Time Encounter Type Encounter Description Reason Pro vider Source Jan 10, 2025 09:13 AM Inpatient Visit DAILY HOSPITALIZATION DATA BLADE KIM Encounter Template Text not used by [place] Plan of Treatment: Future Appointments (+ 6 months) and Future Tests (+/- 45 days) The Plan of Treatment section includes future care activities for the patient from all [place] [facility] This section includes future appointments and future orders which are active, pending or scheduled. Future Appointments This section includes appointments that were scheduled to occur 6 months from the date of the Encounter, up to a maximum of 20 appointments. The data comes from all [facility]. Appointment Date/Time Appointment Type Appointme nt Facility Name Jan 24, 2025 01:00 PM AMBULATORY - SURGERY [facility] Jan 25, 2025 10:00 AM AMBULATORY - MEDICINE [facility] Jan 25, 2025 11:00 AM AMBULATORY - REHAB MEDICIN E [facility] Feb 01, 2025 10:00 AM AMBULATORY - MEDICINE [facility] Feb 01, 2025 11:00 AM AMBULATORY - MEDICINE [facility] Feb 08, 2025 10:00 AM AMBULATORY - MEDICINE [facility] February 22, 2025 10:00 AM AMBULATORY MEDICINE [facility] February 23, 2025 11:00 AM AMBULATORY - NONE [facility] February 23, 2025 11:30 AM AMBULATORY - SURGERY [facility] March 08, 2025 10:00 AM AMBULATORY - MEDICINE [facility] Apr 09, 2025 01:00 PM AMBULATORY - SURGERY [facility] Active, Pending, and Scheduled Orders This section includes a listing of several types of active, pending, and scheduled orders, including clinic medications orders, diagnostic test orders, procedure orders and consult orders; where the start date of the order is 45 days before the date of the Encounter or 45 days after the date of theEncounter. The data comes from all [facility]. Test Date/Time Test Type Test Details Facility Name Dec 11, 2024 11:04 AM Consult Order PT PHYSICA L THERAPY OUTPT ORTHO SURGERY Cons Information [facility] Jan 10, 2025 12:00 AM Laboratory - Blood Bank Order TYPE & SCREEN - LAB BLOOD [facility] Jan 12, 2025 08:18 AM Consult Order [facility] Jan 22, [facility]25 12:00 AM Laboratory - Chemi stry Order HEMOGLOBIN A1C BLOOD SP ONCE [facility] Jan 22, 2025 12:00 AM Laboratory - Chemi stry Order BASIC METABOLIC PANEL+MG PLASMA SP [facility] February 23, 2025 11:00 AM Imaging - General Radiology Order SHOULDER RIGHT 2-3 VIEWS RIGHT [facility] Lab Results: +/- 30 days of the encounter This section includes the Chemistry and Hematology Lab Results on record with [place] for the patient. Radiology Reports and Pathology Reports are provided separately, in subsequent sections. Lab Results This section contains the Chemistry/Hematology Results that were resulted 30 days before or 30 daysafter the date of the Encounter. Date/Time Source Result Type Result - Unit Interpretation Reference Range Comment Jan 11, 2025 12:21 PM [facility] FINGERSTICK GLUCOSE Specimen Type: BLOOD Comment: Save Result Nurse Notified Ordering Provider: ANDREA WOLF Report Released Date/Time: Jan 11, 2025 12:51 PM Reporting Lab: [facility] [phone] Performing Lab: [facility] [phone] FINGERSTICK GLUCOSE 246 mg/dL H 70-100 Jan 11, 2025 07:37 AM [facility] CBC Specimen Type: BLOOD No comment entered. Ordering Provider: ANDREA WOLF Report Released Date/Time: Jan 10, 2025 02:40 PM Reporting Lab: [facility] [phone] Performing Lab: [facility] [phone] WBC 9.7 4.0-11.0 RBC 4.50 L 4.60-6.20 HGB 12.9 g/dL L 13.5-17.9 HCT 42.3 41.0-54.0 MCV 94.0 fL 80.0-100.0 MCH 28.7 pg 27.0-33.0 MCHC 30.5 g/dL L 32.0-37.5 PLT 174 150-400 MPV 11.5 fL 9.1-13.0 RDW 13.3 11.5-14.5 Jan 11, 2025 07:37 AM [facility] BASIC METABOLIC PANEL+MG Specimen Type: PLASMA No comment entered. Ordering Provider: ANDREA WOLF Report Released Date/Time: Jan 10, 2025 02:40 PM Reporting Lab: [facility] [phone] Performing Lab: [facility] [phone] CREATININE 1.0 mg/dL 0.7-1.2 UREA NITROGEN 21 mg/dL 8-26 GLUCOSE 203 mg/dL H 70-100 SODIUM 136 mmol/L 136-145 POTASSIUM 4.1 mmol/L 3.5-5.1 CHLORIDE 102 mmol/L 98-107 CO2 23 mmol/L 22-29 CALCIUM 8.8 mg/dL 8.4-10.2 MAGNESIUM 2.0 mg/dL 1.6-2.6 ANION GAP 11 mmol/L 5-15 .CREAT EGFR(CKD-EPI) 80 >60 Jan 11, 2025 06:10 AM [facility] FINGERSTICK GLUCOSE Specimen Type: BLOOD Comment: Save Result Nurse Notified Ordering Provider: Lilli CHRISTENSEN Report Released Date/Time: Jan 11, 2025 07:41 AM Reporting Lab: [facility] [phone] Performing Lab: [facility] [phone] FINGERSTICK GLUCOSE 220 mg/dL H 70-100 Jan 10, 2025 08:11 PM [facility] FINGERSTICK GLUCOSE Specimen Type: BLOOD Comment: Save Result Nurse Notified Ordering Provider: Lilli CHRISTENSEN Report Released Date/Time: Jan 10, 2025 08:36 PM Reporting Lab: [facility] [phone] Performing Lab: [facility] [phone] FINGERSTICK GLUCOSE 239 mg/dL H 70-100 Jan 10, 2025 04:30 PM [facility] FINGERSTICK GLUCOSE Specimen Type: BLOOD Comment: Save Result Nurse Notified Ordering Provider: Lilli CHRISTENSEN Report Released Date/Time: Jan 10, 2025 05:34 PM Reporting Lab: [facility] [phone] Performing Lab: [facility] [phone] FINGERSTICK GLUCOSE 190 mg/dL H 70-100 Jan 10, 2025 02:40 PM [facility] FINGERSTICK GLUCOSE Specimen Type: BLOOD Comment: Save Result Nurse Notified Ordering Provider: BENIGNO KIM Report Released Date/Time: Jan 10, 2025 03:01 PM Reporting Lab: [facility] [phone] Performing Lab: [facility] [phone] FINGERSTICK GLUCOSE 183 mg/dL H 70-100 Jan 10, 2025 08:35 AM [facility] PROTHROMBIN TIME/INR Specimen Type: PLASMA Comment: ~Draw on admission. Call IV team to draw on admission. Ordering Provider: BENIGNO KIM A Report Released Date/Time: Jan 10, 2025 08:01 AM Reporting Lab: [facility] [phone] Performing Lab: [facility] [phone] .INR 0.9 0.8-1.1 .PT 10.9 s 9.4-12.5 Jan 10, 2025 08:35 AM [facility] ACT PART THROMBO TIME Specimen Type: PLASMA Comment: ~Draw on admission. Call IV team to draw on admission. Ordering Provider: BENIGNO KIM A Report Released Date/Time: Jan 10, 2025 08:01 AM Reporting Lab: [facility] [phone] Performing Lab: [facility] [phone] APTT 31.4 s 25.1-36.5 Jan 10, 2025 08:35 AM [facility] CBC Specimen Type: BLOOD No comment entered. Ordering Provider: BENIGNO KIM A Report Released Date/Time: Jan 10, 2025 08:01 AM Reporting Lab: [facility] [phone] Performing Lab: [facility] [phone] WBC 6.6 4.0-11.0 RBC 5.00 4.60-6.20 HGB 14.5 g/dL 13.5-17.9 HCT 46.1 41.0-54.0 MCV 92.2 fL 80.0-100.0 MCH 29.0 pg 27.0-33.0 MCHC 31.5 g/dL L 32.0-37.5 PLT 172 150-400 MPV 10.9 fL 9.1-13.0 RDW 13.7 11.5-14.5 Jan 10, 2025 08:35 AM [facility] BASIC METABOLIC PANEL+MG Specimen Type: PLASMA No comment entered. Ordering Provider: BENIGNO KIM A Report Released Date/Time: Jan 10, 2025 08:01 AM Reporting Lab: [facility] [phone] Performing Lab: [facility] [phone] CREATININE 0.9 mg/dL 0.7-1.2 UREA NITROGEN 19 mg/dL 8-26 GLUCOSE 151 mg/dL H 70-100 SODIUM 138 mmol/L 136-145 POTASSIUM 3.9 mmol/L 3.5-5.1 CHLORIDE 106 mmol/L 98-107 CO2 23 mmol/L 22-29 CALCIUM 9.3 mg/dL 8.4-10.2 MAGNESIUM 2.0 mg/dL 1.6-2.6 ANION GAP 9 mmol/L 5-15 .CREAT EGFR(CKD-EPI) >90 >60 Jan 10, 2025 08:35 AM [facility] FINGERSTICK GLUCOSE Specimen Type: BLOOD Comment: Save Result Ordering Provider: BENIGNO KIM Report Released Date/Time: Jan 10, 2025 10:31 AM Reporting Lab: [facility] [phone] Performing Lab: [facility] [phone] FINGERSTICK GLUCOSE 155 mg/dL H 70-100 Dec 18, 2024 12:16 PM [facility] ALBUMIN Specimen Type: PLASMA No comment entered. Ordering Provider: BENIGNO KIM Report Released Date/Time: Sep 27, 2024 10:57 AM Reporting Lab: [facility] [phone] Performing Lab: [facility] [phone] ALBUMIN 4.4 g/dL 3.5-5.0 Dec 18, 2024 12:16 PM [facility] HEMOGLOBIN A1C Specimen Type: BLOOD Comment: [...] Sep 27, 2024 10:57 AM Reporting Lab: [facility] [phone] Performing Lab: [facility] [phone] HEMOGLOBIN A1C 7.1 H 4.0-6.0 Dec 18, 2024 12:16 PM [facility] PROTHROMBIN TIME/INR Specimen Type: PLASMA No comment entered. Ordering Provider: BENIGNO KIM A Report Released Date/Time: Sep 27, 2024 10:57 AM Reporting Lab: [facility] [phone] Performing Lab: [facility] [phone] .INR 0.9 0.8-1.1 .PT 10.3 s 9.4-12.5 Dec 18, 2024 12:16 PM [facility] BASIC METABOLIC PANEL+MG Specimen Type: PLASMA No comment entered. Ordering Provider: BENIGNO KIM A Report Released Date/Time: Sep 27, 2024 10:57 AM Reporting Lab: [facility] [phone] Performing Lab: [facility] [address] CREATININE 1.0 mg/dL 0.7-1.2 UREA NITROGEN 19 mg/dL 8-26 GLUCOSE 118 mg/dL H 70-100 SODIUM 139 mmol/L 136-145 POTASSIUM 4.1 mmol/L 3.5-5.1 CHLORIDE 104 mmol/L 98-107 CO2 25 mmol/L 22-29 CALCIUM 9.6 mg/dL 8.4-10.2 MAGNESIUM 2.1 mg/dL 1.6-2.6 ANION GAP 10 mmol/L 5-15 .CREAT EGFR(CKD-EPI) 80 >60 Dec 18, 2024 12:16 PM [facility] CBC & DIFF Specimen Type: BLOOD Comment: Automated Differential Performed Ordering Provider: BENIGNO KIM A Report Released Date/Time: Sep 27, 2024 10:57 AM Reporting Lab: [facility] [phone] Performing Lab: [facility] [address] WBC 9.5 4.0-11.0 RBC 5.05 4.60-6.20 HGB [...] Source Jan 10, 2025 08:57 PM 6 [facility] Jan 10, 2025 07:57 PM 7 [facility] Jan 10, 2025 05:58 PM 187.8 27 [facility] Jan 10, 2025 09:21 AM 186 27 [facility] Jan 10, 2025 09:20 AM 98 61 128/73 16 98 7 [facility] Social History: Smoking Status (Most current) and Tobacco Use (All prior to encounter date) This section includes the most current, and the historical, smoking and tobacco- related health factors from the [place] facility where the Encounter took place. Current Smoking Status This section includes the most current smoking, or tobacco-related health factor, from the [place] facility where the Encounter took place. Date/Time Current Smoking Status Comment Sernia reece Nov 19, 2023 08:00 AM VA-TOBACCO FORMER USER [facility] Tobacco Use History This section includes a history of the smoking, or tobacco-related health factors, that were collected on or before the date of the Encounter. The data comes from the [place] facility where the Encounter took place. Date/Time Smoking Status/Tobacco Use Comment [facility] Nov 19, 2023 08:00 AM VA-TOBACCO QUIT 15 YRS OR MORE [facility] Jan 28, 2023 09:45 AM VA-TOBACCO FORMER USER [facility] Jan 28, 2023 09:45 AM VA-TOBACCO QUIT 15 YRS OR MORE [facility] Oct 30, 2021 03:00 PM VA-TOBACCO FORMER USER [facility] Oct 30, 2021 03:00 PM VA-TOBACCO QUIT 5 TO < 15 YRS [facility] Aug 17, 2019 11:38 AM VA-TOBACCO FORMER USER [facility] Aug 17, 2019 11:38 AM VA-TOBACCO QUIT 5 TO < 15 YRS [facility] Jan 06, 2018 02:39 PM FORMER TOBACCO USER 7Y OR GREATE R [facility] Jan 28, 2017 12:47 PM FORMER TOBACCO USER 7Y OR GREATE R [facility] Jan 21, 2016 03:04 PM FORMER TOBACCO USER 7Y OR GREATE R [facility] Apr 02, 2015 02:05 PM FORMER TOBACCO USER 7Y OR GREATE R [facility] March 01, 2014 09:10 AM FORMER TOBACCO USER 7Y OR GREATE R [facility] Sep 18, 2013 09:13 AM CDM COPD TOBACCO NON-USER [facility] May 28, 2013 11:05 AM LIFETIME NON-TOBACCO USER [facility] May 25, 2013 12:08 PM FORMER TOBACCO USER 7Y OR GREATE R [facility] Jun 18, 2009 09:48 AM FORMER TOBACCO USER 7Y OR GREATE R [facility] Aug 24, 2008 10:10 AM FORMER TOBACCO USE >1Y <7Y [facility] Advance Directives: All historical and current Section Date Range: From patient's date of to the date document was created. This section includes ALL of a patient's completed or amended [place] Advance and Rescinded Directives. The entries below indicate that a directive exists for the patient, but an actual copy is not included with this document. The data comes from all [facility]. Date Advance Directives Provider Source March 08, 2023 ADVANCE DIRECTIVE ODILIA [facility]SON [facility] May 02, 2014 ADVANCE DIRECTIVE DISCUSSION QUEENIE SAENZ [facility] May 24, 2013 CLINICAL WARNING GALINDO STUART [facility] Sep 21, 2011 ADVANCE DIRECTIVE JORDAN ZHANG [facility] Radiology Reports: +/- 30 days of the [...] the Encounter. The data comes from all [place] treatment facilities. Date/Time Radiology Report Provider Source Jan 10, 2025 07:58 AM SHOULDER RIGHT 2-3 VIEWS: KEEAN ROSA [id number] -1955 M Exm Date: JAN 10, 2025@07:58 Req Phys: SHELLI KIM Loc: OR-PACU/01-10-2025@15:42 Img Loc: MAIN X-RAY Service: [place] [address] (Case [id number] COMPLETE) SHOULDER RIGHT 2-3 VIEWS (RAD Detailed) CPT:56383 Proc Modifiers : PORTABLE EXAM, OPERATING ROOM EXAM Reason for Study: right reverse TSA Clinical History: OR 6 shoulder rotator cuff arthropathy My pager number on record is: . I confirm that the pager number/cell phone number above is correct for reporting critical results. My correct contact # for critial results is:Valerio KIM [phone] Trainees only: Enter your staff provider's info here: LAST CREATININE 1.0 (12/18/24) Report Status: Verified Date Reported: JAN 10, 2025 Date Verified: JAN 10, 2025 Watch Assembly Instructor E-Sig:/ES/MIRANDA BROOKE MD Report: EXAMINATION: SHOULDER RIGHT 2-3 VIEWS 01/10/2025 7:58 AM INDICATION: right reverse TSA Impression: Right reverse TSA. Components appear well seated. Report Sign Date/Time: 01/10/2025 3:39 PM Primary Interpreting Staff: MIRANDA BROOKE MD, RADIOLOGIST (Watch Assembly Instructor) /RTS MIRANDA BROOKE [facility]
[2025-01-16] MEDS: SENNOSIDES 1 TAB TABLET 2 TAB PO (08:10)
[2025-01-16] MEDS: polyethylene glycoL 3350 17 GM PACK PO (08:10)
[2025-01-16] MEDS: METFORMIN 1,000 MG TABLET 1000 MG PO (08:10)
--- OUTSIDE RECORDS SUMMARY | 2025-01-16 08:10 | XMS_ITS | Encounter Summary ---
Author Name [facility] [place] [facility] [place] [facility] [place] [facility] [place] Address [address] [place] [address] Care Team Providers Care Immunology Teacher Name Role Phone ZENY MARTIN Primary [...] PART A Oct 18, 2013 PART A [id number] Mary ROSA PATIENT MEDICARE (WNR) MEDICARE (M) PART B Oct 18, 2013 PART B [id number] [phone] Mary ROSA PATIENT MEDICARE (WNR) MEDICARE (M) PART A Oct 18, 2013 PART A [id number] Mary ROSA PATIENT Selected Encounter This section includes the information on record at [place] for the Encounter. Date/Time Encounter Type Encounter Description Reason Provider Source Jan 11, 2025 12:30 PM [facility] HOSP IP/OBS MODERATE 35 GENERAL INTERNAL MEDICINE ICD-10-CM E11.40 Type 2 diabetes mellitus with diabetic neuropathy, unsp LINDA CLAYTON [facility] Encounter Template Text not used by [place] Assessments - Encounter Diagnoses This section includes the primary and secondary diagnoses documented for the Encounter. Date/Time Primary/Secondary Diagnosis Diagnosis Name Provider Source Jan 11, 2025 12:59 PM PRIMARY Type 2 diabetes mellitus with diabetic neuropathy, unsp [facility] Jan 11, 2025 12:59 PM SECONDARY Athscl heart disease [place] [facility] w unsp ang pctrs [facility] Jan 11, 2025 12:59 PM SECONDARY Chronic obstructive pulmonary disease, unspecified [facility] Jan 11, 2025 12:59 PM SECONDARY Essential (primary) hypertension [facility] Jan 11, 2025 12:59 PM SECONDARY Sleep apnea, unspecified [facility] Jan 11, 2025 12:59 PM SECONDARY Unspecified systolic (congestive) heart failure [facility] Plan of Treatment: Future Appointments (+ 6 months) and Future Tests (+/- 45 days) The Plan of Treatment section includes future care activities for the patient from [facility] [place] [facility] This section includes future appointments and future orders which are active, pending or scheduled. Future Appointments This section includes appointments that were scheduled to occur 6 months from the date of the Encounter, up to a maximum of 20 appointments. The data comes from all [place] treatment facilities. Appointment Date/Time Appointment Type Appointme nt Facility Name Jan 24, 2025 01:00 PM AMBULATORY - SURGERY [facility] Jan 25, 2025 10:00 AM AMBULATORY [facility] Jan 25, 2025 11:00 AM AMBULATORY - REHAB [facility] Feb 01, 2025 10:00 AM [facility] Feb 01, 2025 11:00 AM [facility] Feb 08, 2025 10:00 AM [facility] February 22, 2025 10:00 AM [facility] February 23, 2025 11:00 AM AMBULATORY - NONE [facility] February 23, 2025 11:30 AM AMBULATORY - SURGERY [facility] March 08, 2025 10:00 AM [facility] Apr 09, 2025 01:00 PM AMBULATORY - SURGERY [facility] Active, Pending, and Scheduled Orders This section [...] PHYSICA L THERAPY OUTPT ORTHO SURGERY Cons Water Meter Reader's Choice [facility] Jan 10, 2025 12:00 AM Laboratory - Blood Bank Order TYPE & SCREEN - LAB BLOOD WC [facility] Jan 12, 2025 08:18 AM Consult Order [facility], [facility] 12:00 AM Laboratory - Chemi stry Order HEMOGLOBIN A1C BLOOD SP ONCE [facility] Jan 22, 2025 12:00 AM Laboratory - Chemi stry Order BASIC METABOLIC PANEL+MG PLASMA SP [facility] February 23, 2025 11:00 AM Imaging - General Radiology Order SHOULDER RIGHT 2-3 VIEWS RIGHT [facility] Lab Results: [...] Jan 11, 2025 12:51 PM Reporting Lab: [facility] [id number] Performing Lab: [facility] [phone] FINGERSTICK GLUCOSE 246 mg/dL H 70-100 Jan 11, 2025 07:37 AM [facility] CBC Specimen Type: BLOOD No comment entered. Ordering Provider: ANDREA WOLF Report Released Date/Time: Jan 10, 2025 02:40 PM Reporting Lab: [facility] [id number] Performing Lab: [facility] [phone] WBC 9.7 4.0-11.0 RBC 4.50 L 4.60-6.20 [...] Jan 10, 2025 02:40 PM Reporting Lab: [facility] [address] Performing Lab: [facility] [address] CREATININE 1.0 mg/dL 0.7-1.2 UREA NITROGEN 21 [...] Jan 11, 2025 07:41 AM Reporting Lab: [facility] [phone] Performing Lab: [facility] [address] FINGERSTICK GLUCOSE 220 mg/dL H 70-100 Jan 10, 2025 08:11 PM [facility] FINGERSTICK GLUCOSE Specimen Type: BLOOD Comment: Save Result Nurse Notified Ordering Provider: Lilli CRHISTENSEN Report Released Date/Time: Jan 10, 2025 08:36 PM Reporting Lab: [facility] [phone] Performing Lab: [facility] [address] FINGERSTICK GLUCOSE 239 mg/dL H 70-100 Jan 10, 2025 04:30 PM [facility] FINGERSTICK GLUCOSE Specimen Type: BLOOD Comment: Save Result Nurse Notified Ordering Provider: Lilli CHRISTENSEN Report Released Date/Time: Jan 10, 2025 05:34 PM Reporting Lab: [facility] [address] Performing Lab: [facility] [address] FINGERSTICK GLUCOSE 190 mg/dL H 70-100 Jan 10, 2025 02:40 PM [facility] FINGERSTICK GLUCOSE Specimen Type: BLOOD Comment: Save Result Nurse Notified Ordering Provider: BENIGNO KIM A Report Released Date/Time: Jan 10, 2025 03:01 PM Reporting Lab: [facility] [address] Performing Lab: [facility] [address] FINGERSTICK GLUCOSE 183 mg/dL H 70-100 Jan 10, 2025 08:35 AM [facility] PROTHROMBIN TIME/INR Specimen Type: PLASMA Comment: ~Draw on admission. Call IV team to draw on admission. Ordering Provider: BENIGNO KIM Report Released Date/Time: Jan 10, 2025 08:01 AM Reporting Lab: [facility] [address] Performing Lab: [facility] [phone] .INR 0.9 0.8-1.1 .PT 10.9 s 9.4-12.5 Jan 10, 2025 08:35 AM [facility] ACT PART THROMBO TIME Specimen Type: PLASMA Comment: ~Draw on admission. Call IV team to draw on admission. Ordering Provider: BENIGNO KIM A Report Released Date/Time: Jan 10, 2025 08:01 AM Reporting Lab: [facility] [address] Performing Lab: [facility] [address] APTT 31.4 s 25.1-36.5 Jan 10, 2025 08:35 AM [facility] CBC Specimen Type: BLOOD No comment entered. Ordering Provider: BENIGNO KIM A Report Released Date/Time: Jan 10, 2025 08:01 AM Reporting Lab: [facility] [address] Performing Lab: [facility] [address] WBC 6.6 4.0-11.0 RBC 5.00 4.60-6.20 HGB [...] Jan 10, 2025 08:01 AM Reporting Lab: [facility] [phone] Performing Lab: [facility] [address] CREATININE 0.9 mg/dL 0.7-1.2 UREA NITROGEN 19 [...] Jan 10, 2025 10:31 AM Reporting Lab: [facility] [address] Performing Lab: [facility] [address] FINGERSTICK GLUCOSE 155 mg/dL H 70-100 Dec 18, 2024 12:16 PM [facility] ALBUMIN Specimen Type: PLASMA No comment entered. Ordering Provider: BENIGNO KIM A Report Released Date/Time: Sep 27, 2024 10:57 AM Reporting Lab: [facility] [address] Performing Lab: [facility] [address] ALBUMIN 4.4 g/dL 3.5-5.0 Dec 18, 2024 [...] Sep 27, 2024 10:57 AM Reporting Lab: [facility] [address] Performing Lab: [facility] [address] HEMOGLOBIN A1C 7.1 H 4.0-6.0 Dec 18, 2024 12:16 PM [facility] PROTHROMBIN TIME/INR Specimen Type: PLASMA No comment entered. Ordering Provider: BENIGNO KIM A Report Released Date/Time: Sep 27, 2024 10:57 AM Reporting Lab: [facility] [address] Performing Lab: [facility] [address] .INR 0.9 0.8-1.1 .PT 10.3 s 9.4-12.5 Dec 18, 2024 12:16 PM [facility] BASIC METABOLIC PANEL+MG Specimen Type: PLASMA No comment entered. Ordering Provider: BENIGNO KIM A Report Released Date/Time: Sep 27, 2024 10:57 AM Reporting Lab: [facility] [address] Performing Lab: [facility] [address] CREATININE 1.0 mg/dL 0.7-1.2 UREA NITROGEN 19 [...] Sep 27, 2024 10:57 AM Reporting Lab: [facility] [address] Performing Lab: [facility] [address] WBC 9.5 4.0-11.0 RBC 5.05 4.60-6.20 HGB [...] Source Jan 11, 2025 09:30 AM 5 [facility] Jan 11, 2025 08:35 AM 8 [facility] Jan 11, 2025 08:31 AM 97.5 50 122/69 16 100 8 [facility] Jan 11, 2025 04:27 AM 6 [facility] Jan 11, 2025 12:28 AM 9 [facility] Social History: Smoking Status (Most current) [...] this document. The data comes from all [facility]. Date Advance Directives Provider Source March 08, 2023 ADVANCE DIRECTIVE ODILIA CHRISTIANSON [facility] May 02, 2014 ADVANCE DIRECTIVE DISCUSSION QUEENIE SAENZ [facility] May 24, 2013 CLINICAL WARNING SHEYLARGALINDO [facility] Sep 21, 2011 ADVANCE DIRECTIVE JORDAN ZHANG [facility] Radiology Reports: +/- 30 days of [...] the Encounter. The data comes from all [place] treatment facilities. Date/Time Radiology Report Provider Source Jan 10, 2025 07:58 AM SHOULDER RIGHT 2-3 VIEWS: KEENA ROSA [id number] -[id number] M Exm Date: JAN 10, 2025@07:58 Req Phys: SHELLI KIM Loc: OR-PACU/01-10-2025@15:42 Img Loc: MAIN X-RAY Service: [place] [address] (Case [id number] COMPLETE) SHOULDER RIGHT 2-3 VIEWS (RAD Detailed) CPT:04154 Proc Modifiers : PORTABLE EXAM, OPERATING ROOM EXAM Reason for Study: right reverse TSA Clinical History: OR 6 shoulder rotator cuff arthropathy My pager number on record is: . I confirm that the pager number/cell phone number above is correct for reporting critical results. My correct contact # for critial results is:Valerio KIM [phone] Trainees only: Enter your staff provider's info here: LAST CREATININE 1.0 (12/18/24) Report Status: Verified Date Reported: JAN 10, 2025 Date Verified: JAN 10, 2025 Party Demonstrator E-Sig:/ES/MIRANDA BROOKE MD Report: EXAMINATION: SHOULDER RIGHT 2-3 VIEWS 01/10/2025 7:58 AM INDICATION: right reverse TSA Impression: Right reverse TSA. Components appear well seated. Report Sign Date/Time: 01/10/2025 3:39 PM Primary Interpreting Staff: MIRANDA BROOKE MD, RADIOLOGIST (Party Demonstrator) /RTS MIRANDA BROOKE [facility] Encounter Notes: All associated encounter notes This section contains the clinical notes associated to the Encounter. Date/Time Encounter Note(s) Provider Source Jan 11, 2025 12:30 PM PRIMARY CARE NOTE: LOCAL TITLE: MEDICINE INPT CO-MANAGEMENT NOTE STANDARD TITLE: PRIMARY CARE NOTE DATE OF NOTE: JAN 11, 2025@12:30 ENTRY DATE: JAN 11, 2025@12:30:49 AUTHOR: LINDA CLAYTON EXP COSIGNER: URGENCY: STATUS: COMPLETED DAILY MEDICAL PROGRESS NOTE Nursing Notes reviewed. SUBJECTIVE: Met with KEENA ROSA who is a 69 y/o MALE. No acute events overnight. Mr. Rosa reports he is doing well, is up and ambulating. Reports his Right shoulder/surgical pain as 7/10 currently but reports that is baseline and tolerable for him. He does endorse he is SOB/NELSON as he is ambulating without his chronic oxygen, but reports his NELSON as mild and chronic/unchanged. He reports NO flatus, NO BM, but also no N/V, is voiding. He has no other complaints. He is hoping to DC today. OBJECTIVE VITALS: Blood pressure: Measurement DT BP 01/11/2025 08:31 122/69 01/10/2025 09:20 128/73 12/18/2024 14:06 111/72 Pulse: Measurement DT PULSE 01/11/2025 08:31 50 01/10/2025 09:20 61 12/18/2024 14:06 72 RR: 16 Temp: 97.5 F [36.4 C] SaO2: 100% on RA REVIEW OF SYSTEMS A 10 point system review was done and found to be negative and non- contributory, unless noted in the HPI. PHYSICAL EXAM: GENERAL: Elderly male up and ambulating, appears comfortable, NAD. ENT: Oral membranes are moist with no exudate. CV: S1/S2, RRR, no murmur, rub or gallop. RESPIRATORY: CTAB, no wheeze or crackles; regular/relaxed work of breathing, no cough. ABDOMEN: Abdomen is protuberant with active bowel sounds, soft, nontender. No guarding, rigidity, or rebound tenderness. EXTREMITIES: No bilateral lower extremity edema. SKIN: No rash seen on visible skin. MOOD: Alert, calm and pleasant. NEURO: AOx3, CN II-XII grossly intact. WOUND: Right shoulder incision is covered with occlusive surgical dressing, C/D/I. Right shoulder immobilizer is in place. VESSELS: Right radial pulse 4/4. PERTINENT MEDICATIONS: Active Inpatient Medications (including Supplies): Active Inpatient Medications Status 1) ACETAMINOPHEN (INPT) TAB 1000MG PO TID SCHEDULED ACTIVE Indication: FOR PAIN 2) ALBUTEROL (NEB) SOLN,INHL 3ML INHL QID Follow by flutter ACTIVE valve x 10 breaths Indication: FOR COPD 3) ALOH/MGOH/SIMETH XTRA STRENGTH (INPT) 15 ML PO QID PRN FOR : ACTIVE Offer first. If not effective in 1 hour, call provider. Indication: HEARTBURN 4) ASPIRIN TAB,EC 81MG PO QDAY ACTIVE Indication: FOR HEART DISEASE 5) BISACODYL (INPT) SUPP,RTL 1 SUPPOSITORY(IES) 10MG IL QDAY ACTIVE PRN : Offer third. If not effective in 12 hours, go to the next order for same indication. Indication: FOR CONSTIPATION 6) BRIMONIDINE/BRINZOLAMIDE SUSP,OPH 1 DROP OU BID ACTIVE Indication: FOR GLAUCOMA 7) CHOLECALCIFEROL TAB 25MCG PO QDAY ACTIVE Indication: FOR VITAMIN D SUPPLEMENT 8) DEXTROSE 50% WATER (INPT) INJ,SOLN 25-50ML IV PRN ACTIVE Instructions too long. See order details for full text. Indication: FOR HYPOGLYCEMIA 9) DOCUSATE NA/SENNA TAB 2 TABLETS PO BID *Hold for loose ACTIVE stools* Indication: FOR CONSTIPATION 10) ENEMA PHOSPHATE (INPT) ENEMA 1 ENEMA IL QDAY PRN : Offer ACTIVE fourth. If not effective in 12 hours, call provider. Indication: FOR CONSTIPATION 11) ENOXAPARIN INJ 30MG/0.3ML SQ Q12H Starting at 0900 ON POD #1 ACTIVE Per Protocol Indication: TO PREVENT BLOOD CLOTS 12) FERROUS GLUCONATE TAB 325MG PO QHS ACTIVE Indication: FOR IRON SUPPLEMENT 13) GLUCAGON (INPT) INJ 1MG/1VIAL IM PRN Instructions too long. ACTIVE See order details for full text. Indication: FOR HYPOGLYCEMIA 14) GLUCOSE (INPT) LIQUID,ORAL 15 GM/60 ML - 30 GM/120 ML PO PRN ACTIVE Instructions too long. See order details for full text. Indication: FOR HYPOGLYCEMIA 15) GLUCOSE TAB,CHEWABLE 20-32GM PO PRN Instructions too long. ACTIVE See order details for full text. Indication: FOR HYPOGLYCEMIA 16) GUAIFENESIN LIQUID,ORAL 200MG/10ML PO QID ACTIVE Indication: FOR COUGH AND CONGESTION 17) HYDROMORPHONE INJ,SOLN 0.2-0.4MG IV Q2H PRN For pain not ACTIVE controlled with BY MOUTH regimen. If not effective in 30 minutes, call provider. For pain score 5-7/10, give 0.2mg; for pain score 8-10/10, give 0.4mg. Indication: FOR PAIN 18) INSULIN ASPART (HUMAN) INJ MEDIUM DOSE CORRECTION SQ DTID ACTIVE Medium Dose (requiring 40-80 units/day) BG 201-250 2 units, BG 251-300 4 units, BG 301-350 6 units, BG 351-400 8 units, BG >400 10 units Indication: FOR DIABETES 19) INSULIN ASPART (HUMAN) INJ MEDIUM DOSE QHS CORRECTION SQ QHS ACTIVE Medium Dose (requiring 40-80 units/day) BG 201-250 2 units, BG 251-300 4 units, BG 301-351 6 units, BG 351-400 8 units, BG >400 8 units Indication: FOR DIABETES 20) INSULIN GLARGINE-YFGN 100UNIT/ML INJ 10 UNITS SQ QHS ACTIVE Indication: FOR DIABETES 21) ISOSORBIDE MONONITRATE TAB,SA 60MG PO QDAY Hold for SBP <100 ACTIVE Indication: FOR HEART FAILURE 22) LATANOPROST 0.005% SOLN,OPH 1 DROP OU QHS ACTIVE Indication: FOR GLAUCOMA 23) LEVOTHYROXINE TAB 25MCG PO QDAY ACTIVE Indication: FOR THYROID 24) LIDOCAINE PATCH 1 PATCH TOP QDAY Instructions too long. See ACTIVE order details for full text. Indication: FOR PAIN 25) MAGNESIUM HYDROXIDE (INPT) SUSP,ORAL 30ML PO BID PRN FOR : ACTIVE Offer second. If not effective in 12 hours, go to next order for same indication. Indication: CONSTIPATION 26) MELATONIN CAP/TAB 3MG PO QHS for sleep ACTIVE Indication: FOR SLEEP 27) METHOCARBAMOL TAB 500MG-1000MG PO Q6H PRN For pain related ACTIVE to muscle spasm and/or tightness. For pain 2-5 give 500mg; for pain 6-10 give 1000mg. Take lowest effective dose. Indication: FOR MUSCLE SPASMS 28) METOPROLOL SUCCINATE TAB,SA 12.5MG PO QDAY Hold for SBP<90 ACTIVE or HR<55 Indication: FOR HEART FAILURE 29) MULTIVITAMINS CAP/TAB 1 TABLET PO QDAY ACTIVE Indication: FOR SUPPLEMENT 30) NALOXONE INJ,SOLN 0.4MG/1ML IV PRN PER COMMENTS For opioid ACTIVE overdose or RR<8; may repeat every 2 to 3 minutes up to 3 total doses. Indication: FOR OPIOD OVERDOSE 31) OMEPRAZOLE CAP,EC 20MG PO QDAY ACTIVE Indication: FOR HEARTBURN 32) ONDANSETRON INJ,SOLN 4MG/2ML IVPB Q4H PRN FOR NAUSEA. Offer ACTIVE second. If not effective in 30 minutes, go to next order for same indication. Indication: FOR NAUSEA AND VOMITING 33) ONDANSETRON TAB 4MG PO Q4H PRN : Offer first. If not ACTIVE effective in 1 hour, go to next order for same indication. Indication: FOR NAUSEA 34) OXYCODONE TAB 5-10 MG PO Q4H PRN PRN; 5mg for pain 2-5; 10mg ACTIVE for pain 6-10 (1st line for pain once extubated and tolerating BY MOUTH intake) Indication: FOR PAIN 35) POLYETHYLENE GLYCOL 3350 POWDER,ORAL 17 GM PKT PO QDAY PRN : ACTIVE Offer first. If not effective in 12 hours, go to next order for same indication. Indication: FOR CONSTIPATION 36) POLYETHYLENE GLYCOL 400/PROPYLENE 1 DROP OU QID PRN ACTIVE Indication: FOR DRY EYES 37) PROCHLORPERAZINE INJ 5MG/1ML IV Q6H PRN FOR NAUSEA. Offer ACTIVE third. If not effective in 30 minutes, call provider. Indication: FOR NAUSEA AND VOMITING 38) ROSUVASTATIN TAB 40MG PO QHS ACTIVE Indication: FOR CHOLESTEROL 39) SEMAGLUTIDE INJ,SOLN 1MG SQ QWEEK ACTIVE Indication: FOR DIABETES 40) TACROLIMUS 0.1% OINT,TOP SMALL AMOUNT TOP BID To forehead ACTIVE Indication: FOR DERMATITIS 41) THROAT, ANTISEPTIC (INPT) LOZENGE 1 LOZENGE PO Q4H PRN ACTIVE Indication: FOR SORE THROAT 42) TIOTROPIUM CAP,INHL 18MCG INHL QDAY INHALE ONE CAPSULE IN ACTIVE INHALER BY INHALATION EVERY DAY 18MCG=1CAPSULE Indication: FOR COPD LABS: I have reviewed the past 48 hours of labs in the CPRS system. Glucose range in the last 24 hours: 155-239 Glucose this AM: 220 IMAGING: I have reviewed the past 48 hours of images in the CPRS system. 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 # Right shoulder cuff tear arthropathy # s/p Right reverse TSA, 10 January # Acute post operative pain -Per Orthopedics: Wound care, pain control, antibiotics, DVT prophylaxis, PT/OT/activity, diet resumed. VET reports no flatus, no BM, but does have active bowel sounds and no N/V. Spoke with Orthopedics and reported we can NOT rule out early ileus due to no flatus, but due to ambulating and asymptomatic, it's watch and wait for now. Chronic medical problems: # CAD with h/o CABG, FRED, NSTMI # HTN # Right sided CHF, likely due to COPD/MARTINEZ # HLD Is euvolemic on exam. -Continue INDUSTRIAL SALES MANAGER Aspirin, Rosuvastatin. -Continue INDUSTRIAL SALES MANAGER Isosorbide mononitrate, Toprol. --Resume home Empagliflozin tonight at home. --Resume home Furosemide tomorrow at home. # Diabetes mellitus type II with neuropathy A1c was 7.1 in December. Did get 8 mg's of Dexamethasone during surgery, which is likely why mild hyperglycemia this AM. Of note: Had dramatic weight loss, intentional, with Ozempic and MOVE program. -Continue Glargine 10 units qhs. -Continue Med Aspart s/s TID/qhs. --Holding home Empagliflozin, Metformin, Semaglutide. DC Plan: -Resume home Empagliflozin on night of discharge. -Resume home Metformin on night of discharge. -Resume home Semaglutide as prior. # COPD, severe with chronic O2 dependence Reports he uses 2L NC at home chronically, but does take off on occasions. Chronic sputum production, and NELSON, reports mild and chronic/unchanged from baseline. -Continue scheduled Albuterol nebs QID followed by flutter valve for pulmonary hygiene. -Cont. INDUSTRIAL SALES MANAGER Tiotropium, reports he does not use at home. -Continue scheduled QID Guaifenesin for pulmonary hygiene. Of note: I do not see any maintenance inhalers for someone with Severe COPD and he reports he does not use his Tiotropium at home. He does report he has a nebulizer with a Clear ampule of Nebulizer med he takes PRN at home occasionally, does not know what the med is. There is none listed on his Med sheets. I would suspect it's Albuterol but unknown at this time. 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 He said at one point he was up to 3 of them but has stopped using them. I spoke about rescue inhales/Albuterol and initially he declined wanting one but I was able to convince him he should at least have one of those around. Plan: -Will order/discharge with a rescue Albuterol inhaler ordered for pick-up. -He declined wanting his Tiotropium renewed. 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 --Will send this note to his PCP so they are aware. # MARTINEZ, severe -Cont. home CPAP qhs. # Hypothyroidism -Cont. INDUSTRIAL SALES MANAGER Levothyroxine. # REYES -Cont. INDUSTRIAL SALES MANAGER Ferrous gluconate. # MEDICINE CONSIDERATIONS -Medicine continues to follow. Prophylaxis: Lovenox BID. Diet: VA healthy. IVF: None. /kyle/ Linda Clayton, LUIS, TEST BORING CREW CHIEF Nurse Practitioner, Specialty Care-Surgery Signed: 01/11/2025 12:59 Receipt Acknowledged By: 01/11/2025 13:32 /es/ ZENY MARTIN MD PHYSICIAN LINDA CLAYTON [facility]
--- OUTSIDE RECORDS SUMMARY | 2025-01-16 08:10 | XMS_ITS | Continuity of Care Document ---
Author Organization [facility] Address [address] [place] [address] Phone Care Team Providers Care Associate Product Integrity Engineer Name Role Phone Annika Sarabia PA-C Unavailable [...] Offic/outpt E&m Estab Low-mod [facility], [address] [place], [place], [id number], [place] tel:[phone] [facility] No Information 6 No [place]. [address], [place], [address], . 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
--- OUTSIDE RECORDS SUMMARY | 2025-01-16 08:10 | XMS_ITS | Encounter Summary ---
Author Name [facility] [place] [facility] [place] Organization [facility] [place] [facility] [place] Address [address] [place] [address] Care Team Providers Care Crew Scheduler Name Role Phone ZENY MARTIN Primary Care [...] PART A Oct 18, 2013 PART A [id number] [phone] Mary ROSA PATIENT MEDICARE (WNR) MEDICARE (M) PART B Oct 18, 2013 PART B [id number] [phone] Mary ROSA EORODNEY PATIENT MEDICARE (WNR) MEDICARE (M) PART A Oct 18, 2013 PART A [id number] [phone] Mary ROSA PATIENT Selected Encounter This section includes the information on record at [place] for the Encounter. Date/Time Encounter Type Encounter Description Reason Provider Source Jan 11, 2025 09:30 AM THERAPEUTIC EXERCISES PHYSICAL THERAPY ICD-10-CM Z96.611 Presence of right artificial shoulder joint NIDA VELÁSQUEZ Encounter Template Text not used by [place] Assessments - Encounter Diagnoses This section includes the primary and secondary diagnoses documented for the Encounter. Date/Time Primary/Secondary Diagnosis Diagnosis Name Provider Source Jan 11, 2025 10:28 AM PRIMARY Presence of right artificial shoulder joint NIDA VELÁSQUEZ [facility] Jan 11, 2025 10:28 AM SECONDARY Muscle weakness (generalized) NIDA VELÁSQUEZARET [facility] Plan of Treatment: Future Appointments (+ 6 months) and Future Tests (+/- 45 days) The Plan of Treatment section includes future care activities for the patient from [facility] [place] [facility] This section includes future appointments and future orders which are active, pending or scheduled. Future Appointments This section includes appointments that were scheduled to occur 6 months from the date of the Encounter, up to a maximum of 20 appointments. The data comes from all [facility]. Appointment Date/Time Appointment Type Appointme nt Facility Name Jan 24, 2025 01:00 PM AMBULATORY - SURGERY [facility] Jan 25, 2025 10:00 AM AMBULATORY - MEDICINE [facility] Jan 25, 2025 11:00 AM AMBULATORY - REHAB MEDICIN [facility] Feb 01, 2025 10:00 AM AMBULATORY - MEDICINE [facility] Feb 01, 2025 11:00 AM AMBULATORY - MEDICINE [facility] Feb 08, 2025 10:00 AM AMBULATORY - MEDICINE [facility] February 22, 2025 10:00 AM AMBULATORY - MEDICINE [facility] February 23, 2025 11:00 AM AMBULATORY - NONE [facility] February 23, 2025 11:30 AM AMBULATORY - SURGERY [facility] March 08, 2025 10:00 AM AMBULATORY - MEDICINE [facility] Apr 09, 2025 01:00 PM AMBULATORY [...] of theEncounter. The data comes from all [facility]. Test Date/Time Test Type Test Details Facility Name Dec 11, 2024 11:04 AM Consult Order PT PHYSICA L THERAPY OUTPT ORTHO SURGERY Cons Flat [facility]er[facility] Choice [facility] Jan 10, 2025 12:00 AM Laboratory - Blood Bank Order TYPE & SCREEN - LAB BLOOD WC [facility] Jan 12, 2025 08:18 AM Consult Order [facility] Cons [place] [facility] Jan 22, 2025 12:00 AM Laboratory - Chemi stry Order HEMOGLOBIN A1C BLOOD SP ONCE [facility] Jan 22, 2025 12:00 AM Laboratory - Chemi stry Order BASIC METABOLIC PANEL+MG PLASMA SP [facility] February 23, 2025 11:00 AM Imaging - General Radiology Order SHOULDER RIGHT 2-3 VIEWS RIGHT [facility] Lab Results: +/- 30 days of the encounter This section includes the Chemistry and Hematology Lab Results on record with [place] for the patient. Radiology Reports and Pathology [...] Jan 11, 2025 12:51 PM Reporting Lab: [facility] [phone] Performing Lab: [facility] [phone] FINGERSTICK GLUCOSE 246 mg/dL H 70-100 Jan 11, 2025 07:37 AM [facility] CBC Specimen Type: BLOOD No comment entered. Ordering Provider: ANDREA WOLF Report Released Date/Time: Jan 10, 2025 02:40 PM Reporting Lab: [facility] [phone] Performing Lab: [facility] [id number] WBC 9.7 4.0-11.0 RBC 4.50 L 4.60-6.20 [...] Jan 10, 2025 02:40 PM Reporting Lab: [facility] [address] Performing Lab: [facility] [id number] CREATININE 1.0 mg/dL 0.7-1.2 UREA NITROGEN 21 [...] Jan 11, 2025 07:41 AM Reporting Lab: [facility] [phone] Performing Lab: [facility] [address] FINGERSTICK GLUCOSE 220 mg/dL H 70-100 Jan 10, 2025 08:11 PM [facility] FINGERSTICK GLUCOSE Specimen Type: BLOOD Comment: Save Result Nurse Notified Ordering Provider: Lilli CHRISTENSEN Report Released Date/Time: Jan 10, 2025 08:36 PM Reporting Lab: [facility] [phone] Performing Lab: [facility] [phone] FINGERSTICK GLUCOSE 239 mg/dL H 70-100 Jan 10, 2025 04:30 PM [facility] FINGERSTICK GLUCOSE Specimen Type: BLOOD Comment: Save Result Nurse Notified Ordering Provider: Lilli CHRISTENSEN Report Released Date/Time: Jan 10, 2025 05:34 PM Reporting Lab: [facility] [phone] Performing Lab: [facility] [address] FINGERSTICK GLUCOSE 190 mg/dL H 70-100 Jan 10, 2025 02:40 PM [facility] FINGERSTICK GLUCOSE Specimen Type: BLOOD Comment: Save Result Nurse Notified Ordering Provider: BENIGNO KIM A Report Released Date/Time: Jan 10, 2025 03:01 PM Reporting Lab: [facility] [phone] Performing Lab: [facility] [address] FINGERSTICK GLUCOSE 183 mg/dL H 70-100 Jan 10, 2025 08:35 AM [facility] PROTHROMBIN TIME/INR Specimen Type: PLASMA Comment: ~Draw on admission. Call IV team to draw on admission. Ordering Provider: BENIGNO KIM A Report Released Date/Time: Jan 10, 2025 08:01 AM Reporting Lab: [facility] [phone] Performing Lab: [facility] [address] .INR 0.9 0.8-1.1 .PT 10.9 s 9.4-12.5 Jan 10, 2025 08:35 AM [facility] ACT PART THROMBO TIME Specimen Type: PLASMA Comment: ~Draw on admission. Call IV team to draw on admission. Ordering Provider: BENIGNO KIM A Report Released Date/Time: Jan 10, 2025 08:01 AM Reporting Lab: [facility] [id number] Performing Lab: [facility] [address] APTT 31.4 s 25.1-36.5 Jan 10, 2025 08:35 AM [facility] BASIC METABOLIC PANEL+MG Specimen Type: PLASMA No comment entered. Ordering Provider: BENIGNO KIM A Report Released Date/Time: Jan 10, 2025 08:01 AM Reporting Lab: [facility] [id number] Performing Lab: [facility] [address] CREATININE 0.9 mg/dL 0.7-1.2 UREA NITROGEN 19 mg/dL 8-26 GLUCOSE 151 mg/dL H 70-100 SODIUM 138 mmol/L 136-145 POTASSIUM 3.9 mmol/L 3.5-5.1 CHLORIDE 106 mmol/L 98-107 CO2 23 mmol/L 22-29 CALCIUM 9.3 mg/dL 8.4-10.2 MAGNESIUM 2.0 mg/dL 1.6-2.6 ANION GAP 9 mmol/L 5-15 .CREAT EGFR(CKD-EPI) >90 >60 Jan 10, 2025 08:35 AM [facility] CBC Specimen Type: BLOOD No comment entered. Ordering Provider: BENIGNO KIM A Report Released Date/Time: Jan 10, 2025 08:01 AM Reporting Lab: [facility] [phone] Performing Lab: [facility] [address] WBC 6.6 4.0-11.0 RBC 5.00 4.60-6.20 HGB [...] Jan 10, 2025 10:31 AM Reporting Lab: [facility] [phone] Performing Lab: [facility] [address] FINGERSTICK GLUCOSE 155 mg/dL H 70-100 Dec 18, 2024 12:16 PM [facility] ALBUMIN Specimen Type: PLASMA No comment entered. Ordering Provider: BENIGNO KIM A Report Released Date/Time: Sep 27, 2024 10:57 AM Reporting Lab: [facility] [phone] Performing Lab: [facility] [address] ALBUMIN 4.4 g/dL 3.5-5.0 Dec 18, 2024 [...] Sep 27, 2024 10:57 AM Reporting Lab: [facility] [id number] Performing Lab: [facility] [address] HEMOGLOBIN A1C 7.1 H 4.0-6.0 Dec 18, 2024 12:16 PM [facility] PROTHROMBIN TIME/INR Specimen Type: PLASMA No comment entered. Ordering Provider: BENIGNO KIM A Report Released Date/Time: Sep 27, 2024 10:57 AM Reporting Lab: [facility] [phone] Performing Lab: [facility] [address] .INR 0.9 0.8-1.1 .PT 10.3 s 9.4-12.5 Dec 18, 2024 12:16 PM [facility] BASIC METABOLIC PANEL+MG Specimen Type: PLASMA No comment entered. Ordering Provider: BENIGNO KIM A Report Released Date/Time: Sep 27, 2024 10:57 AM Reporting Lab: [facility] [address] Performing Lab: [facility] [address] CREATININE 1.0 mg/dL 0.7-1.2 UREA NITROGEN 19 [...] Sep 27, 2024 10:57 AM Reporting Lab: [facility] [id number] Performing Lab: [facility] [address] WBC 9.5 4.0-11.0 RBC 5.05 4.60-6.20 HGB [...] Source Jan 11, 2025 09:30 AM 5 [facility] Jan 11, 2025 08:35 AM 8 [facility] Jan 11, 2025 08:31 AM 97.5 50 122/69 16 100 8 [facility] Jan 11, 2025 04:27 AM 6 [facility] Jan 11, 2025 12:28 AM 9 [facility] Social History: Smoking Status (Most [...] this document. The data comes from all [place] facilities. Date Advance Directives Provider Source March 08, 2023 ADVANCE DIRECTIVE ODILIA CHRISTIANSON [facility] May 02, 2014 ADVANCE DIRECTIVE DISCUSSION QUEENIE SAENZ [facility] May 24, 2013 CLINICAL WARNING GALINDO STUART [facility] Sep 21, 2011 ADVANCE DIRECTIVE JORDAN ZHANG [facility] Radiology Reports: +/- 30 days of the [...] 2025 07:58 AM SHOULDER RIGHT 2-3 VIEWS: KENEA ROSA [id number] -[id number] M Exm Date: JAN 10, 2025@07:58 Req Phys: SHELLI KIM Loc: OR-PACU/01-10-2025@15:42 Img Loc: MAIN X-RAY Service: [place] [address] (Case [id number] COMPLETE) SHOULDER RIGHT 2-3 VIEWS (RAD Detailed) CPT:88416 Proc Modifiers : PORTABLE EXAM, OPERATING ROOM EXAM Reason for Study: right reverse TSA Clinical History: OR 6 shoulder rotator cuff arthropathy My pager number on record is: . I confirm that the pager number/cell phone number above is correct for reporting critical results. My correct contact # for critial results is:Valerio KIM [phone] Trainees only: Enter your staff provider's info here: LAST CREATININE 1.0 (12/18/24) Report Status: Verified Date Reported: JAN 10, 2025 Date Verified: JAN 10, 2025 Marketing Engineer E-Sig:/ES/MIRANDA BROOKE MD Report: EXAMINATION: SHOULDER RIGHT 2-3 VIEWS 01/10/2025 7:58 AM INDICATION: right reverse TSA Impression: Right reverse TSA. Components appear well seated. Report Sign Date/Time: 01/10/2025 3:39 PM Primary Interpreting Staff: MIRANDA BROOKE MD, RADIOLOGIST (Marketing Engineer) /MIRANDA PAULSON [facility] Encounter Notes: All associated encounter notes This section contains the clinical notes associated to the Encounter. Date/Time Encounter Note(s) Provider Source Jan 11, 2025 10:27 AM PHYSICAL THERAPY CONSULT: LOCAL TITLE: PHYSICAL THERAPY CONSULT STANDARD TITLE: PHYSICAL THERAPY CONSULT DATE OF NOTE: JAN 11, 2025@10:27 ENTRY DATE: JAN 11, 2025@08:00:48 AUTHOR: NIDA VELÁSQUEZ EXP COSIGNER: URGENCY: STATUS: COMPLETED Date of service: Tx: PT Eval x20', Self-care x11', TE x11' Medical dx: R cuff tear arthropathy; s/p R rTSA on 01/10/2025 Referring dx: post-op mobility impairments Precautions: Falls Restrictions: Weight bearing status: NWB R UE No R shoulder ROM ---- PT per protocol listed below: Phase I 0-6 weeks - Week 1 Ice 3-5 x's per day for 15 minutes each - May shower but not soak surgical arm - May eat, type, write, brush teeth with sling in place - AROM hand, wrist, forearm, PROM elbow and scapular squeezes - No Shoulder ROM except dangle for hygiene x2 weeks - No ER, no abduction >45 degrees for 6 weeks - No Codman's x2wks effective 04/16/[address] Petty & Gunner - Sling with abductor pad for full 6 weeks. Home environment: Style: 2 story home c/ his sister(legally blind) Stairs: 2-3 to enter c/ no HR has PROS consult for vendor to install ramp placed 01/01 & sent to vendor 01/04 Home accessibility: - bedroom/bathroom on main level, with hospital bed - tub shower c/ GB & HHSH and floor to ceiling pole - has shower chair, prefers to stand, tub bench doesnt fit - tall height toilet c/ bidet & 1 GB on R side(toilet frame does not work with bidet - Laundry in lower level: stair glide down From his Pre-op OT assess on 01/01/[address] after procedure Return to prior living environment unless needing STR, open to this Plans for driving/transportation: Saul/Idania (family) or care cab PLOF: Prior to surgery vet was assisted from [facility] for medication management, showering and dressing. Vet is ind ambulating at baseline with a FWW in the home and 4WW in the community on 2L of 02 at baseline. Support: lives with his sister, who is 'blind as a bat'. 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 AD owned: fww, rollator Falls Hx: No: Has not fallen in past 6 months Pertinent PMH: Active problems - Computerized Problem List is the source for the followin. Diabetic peripheral neuropathy 2. Sleep apnea - iVAPS: R: 18, PS: 7-16, EPAP+14, Mirag Quatt Med 3. Severe chronic obstructive pulmonary disease - on home O2 6. Benign essential hypertension 9. Hyperlipidemia 12. Morbid obesity 13. History of adenomatous polyp of colon - By 2008 colonoscopy 14. Hypothyroidism 15. 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 Chronic pain following right total knee arthroplasty 19. Iron deficiency anemia 20. Diabetes mellitus type 2 without retinopathy 21. Hypokalemia 23. Ventricular bigeminy 24. Acute non-ST segment elevation myocardial infarction 25. PVC - premature ventricular contraction (SNOMED CT [id number]) 26. Coronary arteriosclerosis - s/p FRED x1 to RCA (2019) 29. Exposure to potentially hazardous substance - agent orange S: Pt brought to PT clinic in via hospital escort for post-op therapy. He is pleasant & agreeable to participate. O: Observation: NAD c/ R UE farily well supported in shoulder immobilizer(SI) - only mild slippage of R LE forward. Simple adjustment made & discussed c/ Orientation: A&O and able to follow simple conversation & 2 commands. PAIN: I can feel it though not rated MMT: mild weakness R grasp as anticipated Sensation: no changes to chronic numbness as reported 2/2 CTS & neuropathies in hands Integumentary: Incision/wound: not observed Edema: none noted in hand FUNCTIONAL MOBILITY: Transfers: Sit to stand/Stand to sit: Mod I c/ extra caution & care taken by pt to 'not jerk my arm' SELF-CARE/Education: - reviewed proper fit & function of his shoulder immobilizer, including how to don/doff it managing the 2 anai & 3 straps. Good pt understanding noted. - educated pt how to don/doff of polar pack using the 3 velcro straps for improved contact of icing area. He will require assistance to don/doff & reconnect the tubing, if molded shoulder strap left velcro'd in place. - polar pack is not to be placed directly on skin - ice shoulder for only 20-30 min maximum. Let arm warm up for a minimum of 1 hour and then repeat ice as needed for pain control & edema. - educated that shoulder immobilizer, including abduction wedge should remain in place until discontinued by his surgeon or his OP PT provider per protocol. - instructed to perform hand/wrist/elbow ROM as instructed, 3x/day Q89pdey, increasing to 3 sets of 10reps as instructed & noted on his HEP Ther Ex: Instruct/demo in the following ther ex in sitting: * AAROM R hand/wrist/forearm - shown how to use L UE to assist into mild supination stretch c/ demo x2 reps. Pt prefers to perform AROM at this time, but is able to verbalize rationale regarding adding gentle stretch to maintain his full ROM while immobilized * PROM R elbow PROM using contralateral extremity * scapular squeezes per routine protocol c/ tactile cues to activate & facilitate LOCOMOTION: Gait: Pt ambulate 175ft & additional 300ft back to his room c/ suprvsn only wearing his Breg-type HKB L LE c/ slow, sauntering gait. Mild occas path deviation & incr'd lateral trunk excursion, but no instability or LOB @ slower pace c/ gait speed estimated at .31 m/s. He declines need for or use of a cane. Stairs: ascends/descends 2 ZO c/ 1 HR support on L (GB on L when entering home/use of doorframe on L suggested when leaving his home. A step to pattern c/ SBA-suprvsn was demonstrated. Good care & cautions demonstrated. Falls Risk: - Increased in post-op pt c/ 1 UE immobilized Injury Risk: 2/4 per ABCS + recent surgery & post-op anticoagulation Warm hand off to Ortho DNP, who completed the last 200ft of his supervised walk back to his holm room. RN updated via MarginLeft on pt location & performance in PT. ASSESSMENT: 69yo RHD is s/p R rTSA on 01/10/2025. He is referred to PT for instruction in post-op HEP per rTSA protocol and any post-op mobility impairments. At baseline, pt is mod I for trsfs & toileting, receives [employer] care x2hr/wk, drives, gets groceries & cooks for his sister. He generally ambulates with a FWW in the home and 4WW in the community on 2L of 02 at baseline. Today, he is on room air. [place] presents with good STS transfers & ambulation on level c/ no AD & stairs c/ 1 UE support to enter/leave his home. He demonstrates impairments in strength, sensation(baseline), balance(baseline) & has post-op restrictions, including immobilization of his R UE. He is cleared for discharge home c/ re- eval of HCS needs and will require assistance to don/doff his shoulder immob & ice cuff c/ straps; o/w he is told that he can place the shoulder ice pack loosely on his shoulder as nsg staff did overnight. He is able to demonstrate a general understanding his restrictions, how his SI is to fit, don/doffing of SI & performance of his HEP. He has met his inpt PT goals & is ready to discharge home from a PT standpoint. He denies further questions related to PT. Pt will benefit skilled OP PT services for f/u instruction in post-op R UE ROM exercises & progress per rTSA protocol. No adverse events occurred during therapy interventions this date. Evaluation complexity: Low Clinical presentation: Stable Discharge recommendations: home c/ re-eval of [facility] interventions & time allowed (OP PT per rTSA protocol c/ [facility] EVAL Consult Appt. on 01/25/25 @ 11:00) vet mentions Care Cab ride to appt. Pt goals: be able to use my arm; I'm R handed P: DC PT. DME: - issued HEP per rTSA protocol Patient indicates readiness to learn, verbalizes understanding, agreement and satisfaction with the treatment plan. Denies further questions. /kyle/ NIDA VELÁSQUEZ PHYSICAL THERAPIST Signed: 01/11/2025 11:07 NIDA VELÁSQUEZ [facility]
--- OUTSIDE RECORDS SUMMARY | 2025-01-16 08:10 | XMS_ITS | Clinical Summary ---
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 Gender Identity Not on file Sexual Orientation Not on file Obstetrics History Last Filed Vital Signs Vital Sign Reading Time Taken Comments Blood Pressure 135/78 12/13/2007 4:00 PM DRY CELL ASSEMBLY SUPERVISOR Pulse 71 12/13/2007 4:00 PM DRY CELL ASSEMBLY SUPERVISOR Temperature 36.6 C (97.8 F) 12/13/2007 4:00 PM DRY CELL ASSEMBLY SUPERVISOR Respiratory Rate 18 12/13/2007 4:00 PM DRY CELL ASSEMBLY SUPERVISOR Oxygen Saturation 95% 12/13/2007 4:00 PM DRY CELL ASSEMBLY SUPERVISOR Inhaled Oxygen Concentration - - Weight 116.6 kg (257 lb) 12/13/2007 5:00 AM DRY CELL ASSEMBLY SUPERVISOR Height 180.3 cm (5' 11) 12/12/2007 9:00 PM DRY CELL ASSEMBLY SUPERVISOR Body Mass Index 35.84 12/12/2007 9:00 PM DRY CELL ASSEMBLY SUPERVISOR Plan of Treatment Health Maintenance Due Date [...] age 45-75 12/13/2012 12/13/2007 COVID-19 vaccine series ( season) Influenza Vaccine (Season Ended) 2025 RSV vaccine for adults or pr egnancy (1 - 1-dose 75+ series) 02/14/2028 Procedures Procedure Name Priority Date/Time Associated Diagnosis Comments LIPID PANEL Early AM 12/13/2007 3:40 AM DRY CELL ASSEMBLY SUPERVISOR from Last 3 Months or Most Recently Relevant to Health Maintenance Results * (ABNORMAL) Lipid Panel (12/13/2007 3:40 AM DRY CELL ASSEMBLY SUPERVISOR) CHOLESTEROL,TOTAL 223(H) 110 - 199 mg/dL [facility] TRIGLYCERIDES 225(H) 40 - 149 mg/dL [facility] HDL CHOLESTEROL 35(L) >40 mg/dL [facility] CHOL/HDL RATIO 6.37(H) <4.51 [facility] LDL CHOLESTEROL 143(H) <131 mg/dL [facility] PATIENT STATUS Fasting [facility] Blood specimen (specimen) BLOOD SPECIMEN / Unknown 12/13/2007 3:40 AM DRY CELL ASSEMBLY SUPERVISOR 12/12/2007 11:29 PM DRY CELL ASSEMBLY SUPERVISOR Maurice Santos MD CHEMISTRY Final Re sult [facility] SENDOUT [place]NAL ZIP [phone] [place] [address] from Last 3 Months or Most Recently Relevant to Health Maintenance Insurance [address] [place] [address] MEDICARE PART B HB ONLY Advance Directives * Full Code (Latest Code Status on File) Date Activated Date Inactivated Comments 12/12/2007 11:29 PM 12/13/2007 11:05 PM Care Teams Still Operator Brandy Relationship Specialty Start Date End Date Nella Dukes MD [address] [place] [address] PCP - General Internal Medicine 02/17/20
[2025-01-16] MEDS: INSULIN REGULAR, HUMAN 100 UNIT/ML VIAL 8 UNIT SUBCUT (08:11)
--- OUTSIDE RECORDS SUMMARY | 2025-01-16 08:11 | XMS_ITS | Encounter Summary ---
Author Name [facility] [place] [place] [facility] [place] Address [address] [place] [address] Care Team Providers Care Audit Clerks Supervisor Name Role Phone ZENY MARTIN Primary Care [...] PART A Oct 18, 2013 PART A [id number] Mary ROSA EORODNEY PATIENT MEDICARE (WNR) MEDICARE (M) PART B Oct 18, 2013 PART B [id number] Mary ROSA EONARD PATIENT MEDICARE (WNR) MEDICARE (M) PART A Oct 18, 2013 PART A [id number] Mary ROSA PATIENT Selected Encounter This section includes the information on record at [place] for the Encounter. Date/Time Encounter Type Encounter Description Reason Pro vider Source Jan 11, 2025 12:00 AM Inpatient Visit EVENT (HISTORICAL) IHE Encounter Template [...] data comes from all [facility]. Appointment Date/Time Appointment Type Appointme nt Facility Name Jan 24, 2025 01:00 PM AMBULATORY - SURGERY [facility] Jan 25, 2025 10:00 AM AMBULATORY - MEDICINE [facility] Jan 25, 2025 11:00 AM AMBULATORY - REHAB MEDICIN E [facility] Feb 01, 2025 10:00 AM AMBULATORY - MEDICINE [facility] Feb 01, 2025 11:00 AM AMBULATORY - MEDICINE [facility] Feb 08, 2025 10:00 AM AMBULATORY - MEDICINE [facility] February 22, 2025 10:00 AM AMBULATORY - MEDICINE [facility] February 23, 2025 11:00 AM AMBULATORY - NONE [facility] February 23, 2025 11:30 AM AMBULATORY - SURGERY [facility] March 08, 2025 10:00 AM AMBULATORY - MEDICINE [facility] Apr 09, 2025 01:00 PM [...] of theEncounter. The data comes from all [facility]. Test Date/Time Test Type Test Details Facility Name Dec 11, 2024 11:04 AM Consult Order PT PHYSICA L THERAPY OUTPT ORTHO SURGERY Cons Continuous Process [facility]ary [facility] Jan 10, 2025 12:00 AM Laboratory - Blood Bank Order TYPE & SCREEN - LAB BLOOD [facility] Jan 12, 2025 08:18 AM Consult Order [facility] Cons Continuous Process [facility] Jan 22, 2025 12:00 AM Laboratory - Chemi stry Order HEMOGLOBIN A1C BLOOD SP ONCE [facility] Jan 22, 2025 12:00 AM Laboratory - Chemi stry Order BASIC METABOLIC PANEL+MG PLASMA SP [facility] February 23, 2025 11:00 AM Imaging - General Radiology Order SHOULDER RIGHT 2-[address] [facility] Lab Results: +/- 30 days of [...] Comment Jan 11, 2025 12:[address] [facility] FINGERSTICK GLUCOSE Specimen Type: BLOOD Comment: Save Result Nurse Notified Ordering Provider: ANDREA WOLF Report Released Date/Time: Jan 11, 2025 12:51 PM Reporting Lab: [facility] [phone] Performing Lab: [facility] [phone] FINGERSTICK GLUCOSE 246 mg/dL H 70-100 Jan 11, 2025 07:[address] [facility] CBC Specimen Type: BLOOD No comment entered. Ordering Provider: ANDREA WOLF Report Released Date/Time: Jan 10, 2025 02:40 PM Reporting Lab: [facility] [phone] Performing Lab: [facility] [phone] WBC 9.7 4.0-11.0 RBC 4.50 L 4.60-6.20 HGB 12.9 g/dL L 13.5-17.9 HCT 42.3 41.0-54.0 MCV 94.0 fL 80.0-100.0 MCH 28.7 pg 27.0-33.0 MCHC 30.5 g/dL L 32.0-37.5 PLT 174 150-400 MPV 11.5 fL 9.1-13.0 RDW 13.3 11.5-14.5 Jan 11, 2025 07:[address] [facility] BASIC METABOLIC PANEL+MG Specimen Type: PLASMA No comment entered. Ordering Provider: ANDREA WOLF Report Released Date/Time: Jan 10, 2025 02:40 PM Reporting Lab: [facility] [phone] Performing Lab: [facility] [phone] CREATININE 1.0 mg/dL 0.7-1.2 UREA NITROGEN 21 mg/dL 8-26 GLUCOSE 203 mg/dL H 70-100 SODIUM 136 mmol/L 136-145 POTASSIUM 4.1 mmol/L 3.5-5.1 CHLORIDE 102 mmol/L 98-107 CO2 23 mmol/L 22-29 CALCIUM 8.8 mg/dL 8.4-10.2 MAGNESIUM 2.0 mg/dL 1.6-2.6 ANION GAP 11 mmol/L 5-15 .CREAT EGFR(CKD-EPI) 80 >60 Jan 11, 2025 06:[address] [facility] FINGERSTICK GLUCOSE Specimen Type: BLOOD Comment: Save Result Nurse Notified Ordering Provider: Lilli CHRISTENSEN Report Released Date/Time: Jan 11, 2025 07:41 AM Reporting Lab: [facility] [phone] Performing Lab: [facility] [phone] FINGERSTICK GLUCOSE 220 mg/dL H 70-100 Jan 10, 2025 08:[address] [facility] FINGERSTICK GLUCOSE Specimen Type: BLOOD Comment: Save Result Nurse Notified Ordering Provider: Lilli CHRISTENSEN Report Released Date/Time: Jan 10, 2025 08:36 PM Reporting Lab: [facility] [phone] Performing Lab: [facility] [phone] FINGERSTICK GLUCOSE 239 mg/dL H 70-100 Jan 10, 2025 04:[address] [facility] FINGERSTICK GLUCOSE Specimen Type: BLOOD Comment: Save Result Nurse Notified Ordering Provider: Lilli CHRISTENSEN Report Released Date/Time: Jan 10, 2025 05:34 PM Reporting Lab: [facility] [phone] Performing Lab: [facility] [phone] FINGERSTICK GLUCOSE 190 mg/dL H 70-100 Jan 10, 2025 02:[address] [facility] FINGERSTICK GLUCOSE Specimen Type: BLOOD Comment: Save Result Nurse Notified Ordering Provider: BENIGNO KIM Report Released Date/Time: Jan 10, 2025 03:01 PM Reporting Lab: [facility] [phone] Performing Lab: [facility] [phone] FINGERSTICK GLUCOSE 183 mg/dL H 70-100 Jan 10, 2025 08:[address] [facility] PROTHROMBIN TIME/INR Specimen Type: PLASMA Comment: ~Draw on admission. Call IV team to draw on admission. Ordering Provider: BENIGNO KIM A Report Released Date/Time: Jan 10, 2025 08:01 AM Reporting Lab: [facility] [phone] Performing Lab: [facility] [phone] .INR 0.9 0.8-1.1 .PT 10.9 s 9.4-12.5 Jan 10, 2025 08:[address] [facility] ACT PART THROMBO TIME Specimen Type: PLASMA Comment: ~Draw on admission. Call IV team to draw on admission. Ordering Provider: BENIGNO KIM Report Released Date/Time: Jan 10, 2025 08:01 AM Reporting Lab: [facility] [address] Performing Lab: [facility] [phone] APTT 31.4 s 25.1-36.5 Jan 10, 2025 08:[address] [facility] CBC Specimen Type: BLOOD No comment entered. Ordering Provider: BENIGNO KIM A Report Released Date/Time: Jan 10, 2025 08:01 AM Reporting Lab: [facility] [phone] Performing Lab: [facility] [address] WBC 6.6 4.0-11.0 RBC 5.00 4.60-6.20 HGB 14.5 g/dL 13.5-17.9 HCT 46.1 41.0-54.0 MCV 92.2 fL 80.0-100.0 MCH 29.0 pg 27.0-33.0 MCHC 31.5 g/dL L 32.0-37.5 PLT 172 150-400 MPV 10.9 fL 9.1-13.0 RDW 13.7 11.5-14.5 Jan 10, 2025 08:[address] [facility] FINGERSTICK GLUCOSE Specimen Type: BLOOD Comment: Save Result Ordering Provider: BENIGNO KIM A Report Released Date/Time: Jan 10, 2025 10:31 AM Reporting Lab: [facility] [phone] Performing Lab: [facility] [address] FINGERSTICK GLUCOSE 155 mg/dL H 70-100 Jan 10, 2025 08:[address] [facility] BASIC METABOLIC PANEL+MG Specimen Type: PLASMA No comment entered. Ordering Provider: BENIGNO KIM A Report Released Date/Time: Jan 10, 2025 08:01 AM Reporting Lab: [facility] [phone] Performing Lab: [facility] [phone] CREATININE 0.9 mg/dL 0.7-1.2 UREA NITROGEN 19 mg/dL 8-26 GLUCOSE 151 mg/dL H 70-100 SODIUM 138 mmol/L 136-145 POTASSIUM 3.9 mmol/L 3.5-5.1 CHLORIDE 106 mmol/L 98-107 CO2 23 mmol/L 22-29 CALCIUM 9.3 mg/dL 8.4-10.2 MAGNESIUM 2.0 mg/dL 1.6-2.6 ANION GAP 9 mmol/L 5-15 .CREAT EGFR(CKD-EPI) >90 >60 Dec 18, 2024 12:[address] [facility] HEMOGLOBIN A1C Specimen Type: BLOOD Comment: [...] AM Reporting Lab: [facility] [phone] Performing Lab: [facility] [phone] HEMOGLOBIN A1C 7.1 H 4.0-6.0 Dec 18, 2024 12:[address] [facility] ALBUMIN Specimen Type: PLASMA No comment entered. Ordering Provider: BENIGNO KIM A Report Released Date/Time: Sep 27, 2024 10:57 AM Reporting Lab: [facility] [phone] Performing Lab: [facility] [phone] ALBUMIN 4.4 g/dL 3.5-5.0 Dec 18, 2024 12:[address] [facility] PROTHROMBIN TIME/INR Specimen Type: PLASMA No comment entered. Ordering Provider: BENIGNO KIM A Report Released Date/Time: Sep 27, 2024 10:57 AM Reporting Lab: [facility] [address] Performing Lab: [facility] [address] .INR 0.9 0.8-1.1 .PT 10.3 s 9.4-12.5 Dec 18, 2024 12:[address] [facility] BASIC METABOLIC PANEL+MG Specimen Type: PLASMA No comment entered. Ordering Provider: BENIGNO KIM A Report Released Date/Time: Sep 27, 2024 10:57 AM Reporting Lab: [facility] [phone] Performing Lab: [facility] [address] CREATININE 1.0 mg/dL 0.7-1.2 UREA NITROGEN 19 mg/dL 8-26 GLUCOSE 118 mg/dL H 70-100 SODIUM 139 mmol/L 136-145 POTASSIUM 4.1 mmol/L 3.5-5.1 CHLORIDE 104 mmol/L 98-107 CO2 25 mmol/L 22-29 CALCIUM 9.6 mg/dL 8.4-10.2 MAGNESIUM 2.1 mg/dL 1.6-2.6 ANION GAP 10 mmol/L 5-15 .CREAT EGFR(CKD-EPI) 80 >60 Dec 18, 2024 12:[address] [facility] CBC & DIFF Specimen Type: BLOOD Comment: Automated Differential Performed Ordering Provider: BENIGNO KIM A Report Released Date/Time: Sep 27, 2024 10:57 AM Reporting Lab: [facility] [phone] Performing Lab: [facility] [phone] WBC 9.5 4.0-11.0 RBC 5.05 4.60-6.20 HGB [...] Source Jan 11, 2025 09:30 AM 5 [facility] Jan 11, 2025 08:35 AM 8 [facility] Jan 11, 2025 08:31 AM 97.5 50 122/69 16 100 8 [facility] Jan 11, 2025 04:27 AM 6 [facility] Jan 11, 2025 12:28 AM 9 [facility] Social History: Smoking Status (Most current) [...] 2023 08:00 AM VA-TOBACCO FORMER USER [facility] Tobacco Use History This section includes a history of the smoking, or tobacco-related health factors, that were collected on or before the date of the Encounter. The data comes from the [place] facility where the Encounter took place. Date/Time Smoking Status/Tobacco Use Comment F mahamed Nov 19, 2023 08:00 AM VA-TOBACCO QUIT [address] [facility] Jan 28, 2023 09:45 AM VA-TOBACCO FORMER USER [facility] Jan 28, 2023 09:45 AM VA-TOBACCO QUIT [address] [facility] Oct 30, 2021 03:00 PM VA-TOBACCO FORMER USER [facility] Oct 30, 2021 03:00 PM VA-TOBACCO QUIT 5 TO < [address] [facility] Aug 17, 2019 11:38 AM VA-TOBACCO FORMER USER [facility] Aug 17, 2019 11:38 AM VA-TOBACCO QUIT 5 TO < [address] [facility] Jan 06, 2018 02:39 PM FORMER TOBACCO USER 7Y OR GREATE R [facility] Jan 28, 2017 12:47 PM FORMER TOBACCO USER 7Y OR GREATE R [facility] Jan 21, 2016 03:04 PM FORMER TOBACCO USER 7Y OR GREATE R [facility] Apr 02, 2015 02:05 PM FORMER TOBACCO USER 7Y OR GREATE R [facility] March 01, 2014 09:10 AM FORMER TOBACCO USER 7Y OR GREATE R [facility] Sep 18, 2013 09:13 AM CDM COPD TOBACCO NON-USER [facility] May 28, 2013 11:05 AM LIFETIME NON-TOBACCO USER [facility] May 25, 2013 12:08 PM FORMER TOBACCO USER 7Y OR GREATE R [facility] Jun 18, 2009 09:48 AM FORMER TOBACCO USER 7Y OR GREATE R [facility] Aug 24, 2008 10:10 AM FORMER TOBACCO USE >1Y <7Y [facility] Advance Directives: All historical and current Section Date Range: From patient's date of to the date document was created. This section includes ALL of a patient's completed or amended [place] Advance and Rescinded Directives. The entries below indicate that a directive exists for the patient, but an actual copy is not included with this document. The data comes from all [facility]. Date Advance Directives Provider Source March 08, 2023 ADVANCE DIRECTIVE ODILIA CHRISTIANSON [facility] May 02, 2014 ADVANCE DIRECTIVE DISCUSSION QUEENIE SAENZ [facility] May 24, 2013 CLINICAL WARNING GALINDO STUART [facility] Sep 21, 2011 ADVANCE DIRECTIVE JORDAN ZHANG [facility] Radiology Reports: +/- 30 days [...] AM SHOULDER RIGHT 2-3 VIEWS: KEENA ROSA [id number] -[id number] M Exm Date: JAN 10, 2025@07:58 Req Phys: SHELLI KIM Colleen Loc: OR-PACU/01-10-2025@15:42 Img Loc: MAIN X-RAY Service: [place] [address] (Case [id number] COMPLETE) SHOULDER RIGHT 2-3 VIEWS (RAD Detailed) CPT:87509 Proc Modifiers : PORTABLE EXAM, OPERATING ROOM EXAM Reason for Study: right reverse TSA Clinical History: OR 6 shoulder rotator cuff arthropathy My pager number on record is: . I confirm that the pager number/cell phone number above is correct for reporting critical results. My correct contact # for critial results is:Valerio KIM [phone] Trainees only: Enter your staff provider's info here: LAST CREATININE 1.0 (12/18/24) Report Status: Verified Date Reported: JAN 10, 2025 Date Verified: JAN 10, 2025 Brazing Machine Tender E-Sig:/ES/MIRANDA BROOKE MD Report: EXAMINATION: SHOULDER RIGHT 2-3 VIEWS 01/10/2025 7:58 AM INDICATION: right reverse TSA Impression: Right reverse TSA. Components appear well seated. Report Sign Date/Time: 01/10/2025 3:39 PM Primary Interpreting Staff: MIRANDA BROOKE MD, RADIOLOGIST (Brazing Machine Tender) /RTS MIRANDA BROOKE [facility]
--- OUTSIDE RECORDS SUMMARY | 2025-01-16 08:11 | XMS_ITS | Encounter Summary ---
Author Name [facility] [place] [facility] [place] Address [address] [place] [address] Care Team Providers Care Coat Agent Name Role Phone ZENY MARTIN Primary Care [...] PART A Oct 18, 2013 PART A [id number] [phone] Mary ROSA PATIENT MEDICARE (WNR) MEDICARE (M) PART B Oct 18, 2013 PART B [id number] Mary ROSA EORODNEY PATIENT MEDICARE (WNR) MEDICARE (M) PART A Oct 18, 2013 PART A [id number] Mary ROSA PATIENT Selected Encounter This section includes the information on record at [place] for the Encounter. Date/Time Encounter Type Encounter Description Reason Provider Source Jan 10, 2025 09:30 AM OFFICE O/P EST MOD 30 MIN ANESTHESIA PRE/POST-OP CONSULT ICD-10-CM Z01.818 Encounter for other preprocedural examination MEDINA,REHA N A IHE Encounter Template Text not used by [facility] Assessments - Encounter Diagnoses This section includes the primary and secondary diagnoses documented for the Encounter. Date/Time Primary/Secondary Diagnosis Diagnosis Name Provider Source Jan 10, 2025 10:27 AM PRIMARY Encounter for other preprocedural examination RENATA MEDINA [facility] Plan of Treatment: Future Appointments (+ 6 months) and Future Tests (+/- 45 days) The Plan of Treatment section includes future care activities for the patient from all [place] treatmentfacilities. This section includes future appointments and [...] 25, 2025 10:00 AM AMBULATORY - MEDICINE [facility] Jan 25, 2025 11:00 AM AMBULATORY - REHAB MEDICIN E [facility] Feb 01, 2025 10:00 AM AMBULATORY - MEDICINE [facility] Feb 01, 2025 11:00 AM AMBULATORY - MEDICINE [facility] Feb 08, 2025 10:00 AM AMBULATORY - MEDICINE [facility] February 22, 2025 10:00 AM AMBULATORY - MEDICINE [facility] February 23, 2025 11:00 AM AMBULATORY - NONE [facility] February 23, 2025 11:30 AM AMBULATORY - SURGERY [facility] March 08, 2025 10:00 AM AMBULATORY - MEDICINE [facility] Apr 09, 2025 01:00 PM AMBULATORY [...] theEncounter. The data comes from all [facility]. Test Date/Time Test Type Test Details Facility Name Dec 11, 2024 11:04 AM Consult Order PT PHYSICA L THERAPY OUTPT ORTHO SURGERY Cons Technical Producer's Choice [facility] Jan 10, 2025 12:00 AM Laboratory - Blood Bank Order TYPE & SCREEN - LAB BLOOD WC [facility] Jan 12, 2025 08:18 AM Consult Order [facility] Cons Technical Producer's Choice [facility] Jan 22, 2025 12:00 AM Laboratory - Chemi stry Order HEMOGLOBIN A1C BLOOD SP ONCE [facility] Jan 22, 2025 12:00 AM Laboratory - Chemi stry Order BASIC METABOLIC PANEL+MG PLASMA SP [facility] February 23, 2025 11:00 AM Imaging - General Radiology Order SHOULDER RIGHT 2-3 VIEWS RIGHT [facility] Lab Results: +/- 30 days [...] Range Comment Jan 11, 2025 12:21 PM [facility] FINGERSTICK GLUCOSE Specimen Type: BLOOD Comment: Save Result Nurse Notified Ordering Provider: ANDREA WOLF Report Released Date/Time: Jan 11, 2025 12:51 PM Reporting Lab: [facility] [phone] Performing Lab: [facility] [phone] FINGERSTICK GLUCOSE 246 mg/dL H 70-100 Jan 11, 2025 07:37 AM [facility] CBC Specimen Type: BLOOD No comment entered. Ordering Provider: ANDREA WOLF Report Released Date/Time: Jan 10, 2025 02:40 PM Reporting Lab: [facility] [phone] Performing Lab: [facility] [phone] WBC 9.7 4.0-11.0 RBC 4.50 L 4.60-6.20 HGB 12.9 g/dL L 13.5-17.9 HCT 42.3 41.0-54.0 MCV 94.0 fL 80.0-100.0 MCH 28.7 pg 27.0-33.0 MCHC 30.5 g/dL L 32.0-37.5 PLT 174 150-400 MPV 11.5 fL 9.1-13.0 RDW 13.3 11.5-14.5 Jan 11, 2025 07:37 AM [facility] BASIC METABOLIC PANEL+MG Specimen Type: PLASMA No comment entered. Ordering Provider: ANDREA WOLF Report Released Date/Time: Jan 10, 2025 02:40 PM Reporting Lab: [facility] [phone] Performing Lab: [facility] [address] CREATININE 1.0 mg/dL 0.7-1.2 UREA NITROGEN 21 mg/dL 8-26 GLUCOSE 203 mg/dL H 70-100 SODIUM 136 mmol/L 136-145 POTASSIUM 4.1 mmol/L 3.5-5.1 CHLORIDE 102 mmol/L 98-107 CO2 23 mmol/L 22-29 CALCIUM 8.8 mg/dL 8.4-10.2 MAGNESIUM 2.0 mg/dL 1.6-2.6 ANION GAP 11 mmol/L 5-15 .CREAT EGFR(CKD-EPI) 80 >60 Jan 11, 2025 06:10 AM [facility] FINGERSTICK GLUCOSE Specimen Type: BLOOD Comment: Save Result Nurse Notified Ordering Provider: Lilli CHRISTENSEN Report Released Date/Time: Jan 11, 2025 07:41 AM Reporting Lab: [facility] [phone] Performing Lab: [facility] [phone] FINGERSTICK GLUCOSE 220 mg/dL H 70-100 Jan 10, 2025 08:11 PM [facility] FINGERSTICK GLUCOSE Specimen Type: BLOOD Comment: Save Result Nurse Notified Ordering Provider: Lilli CHRISTENSEN Report Released Date/Time: Jan 10, 2025 08:36 PM Reporting Lab: [facility] [phone] Performing Lab: [facility] [phone] FINGERSTICK GLUCOSE 239 mg/dL H 70-100 Jan 10, 2025 04:30 PM [facility] FINGERSTICK GLUCOSE Specimen Type: BLOOD Comment: Save Result Nurse Notified Ordering Provider: Lilli CHRISTENSEN Report Released Date/Time: Jan 10, 2025 05:34 PM Reporting Lab: [facility] [phone] Performing Lab: [facility] [address] FINGERSTICK GLUCOSE 190 mg/dL H 70-100 Jan 10, 2025 02:40 PM [facility] FINGERSTICK GLUCOSE Specimen Type: BLOOD Comment: Save Result Nurse Notified Ordering Provider: BENIGNO KIM A Report Released Date/Time: Jan 10, 2025 03:01 PM Reporting Lab: [facility] [phone] Performing Lab: [facility] [phone] FINGERSTICK GLUCOSE 183 mg/dL H 70-100 Jan 10, 2025 08:35 AM [facility] PROTHROMBIN TIME/INR Specimen Type: PLASMA Comment: ~Draw on admission. Call IV team to draw on admission. Ordering Provider: BENIGNO KIM A Report Released Date/Time: Jan 10, 2025 08:01 AM Reporting Lab: [facility] [phone] Performing Lab: [facility] [address] .INR 0.9 0.8-1.1 .PT 10.9 s 9.4-12.5 Jan 10, 2025 08:35 AM [facility] ACT PART THROMBO TIME Specimen Type: PLASMA Comment: ~Draw on admission. Call IV team to draw on admission. Ordering Provider: BENIGNO KIM A Report Released Date/Time: Jan 10, 2025 08:01 AM Reporting Lab: [facility] [phone] Performing Lab: [facility] [phone] APTT 31.4 s 25.1-36.5 Jan 10, 2025 08:35 AM [facility] CBC Specimen Type: BLOOD No comment entered. Ordering Provider: BENIGNO KIM A Report Released Date/Time: Jan 10, 2025 08:01 AM Reporting Lab: [facility] [phone] Performing Lab: [facility] [phone] WBC 6.6 4.0-11.0 RBC 5.00 4.60-6.20 HGB 14.5 g/dL 13.5-17.9 HCT 46.1 41.0-54.0 MCV 92.2 fL 80.0-100.0 MCH 29.0 pg 27.0-33.0 MCHC 31.5 g/dL L 32.0-37.5 PLT 172 150-400 MPV 10.9 fL 9.1-13.0 RDW 13.7 11.5-14.5 Jan 10, 2025 08:35 AM [facility] BASIC METABOLIC PANEL+MG Specimen Type: PLASMA No comment entered. Ordering Provider: BENIGNO KIM A Report Released Date/Time: Jan 10, 2025 08:01 AM Reporting Lab: [facility] [phone] Performing Lab: [facility] [address] CREATININE 0.9 mg/dL 0.7-1.2 UREA NITROGEN 19 mg/dL 8-26 GLUCOSE 151 mg/dL H 70-100 SODIUM 138 mmol/L 136-145 POTASSIUM 3.9 mmol/L 3.5-5.1 CHLORIDE 106 mmol/L 98-107 CO2 23 mmol/L 22-29 CALCIUM 9.3 mg/dL 8.4-10.2 MAGNESIUM 2.0 mg/dL 1.6-2.6 ANION GAP 9 mmol/L 5-15 .CREAT EGFR(CKD-EPI) >90 >60 Jan 10, 2025 08:35 AM [facility] FINGERSTICK GLUCOSE Specimen Type: BLOOD Comment: Save Result Ordering Provider: BENIGNO KIM A Report Released Date/Time: Jan 10, 2025 10:31 AM Reporting Lab: [facility] [phone] Performing Lab: [facility] [address] FINGERSTICK GLUCOSE 155 mg/dL H 70-100 Dec 18, 2024 12:16 PM [facility] ALBUMIN Specimen Type: PLASMA No comment entered. Ordering Provider: BENIGNO KIM A Report Released Date/Time: Sep 27, 2024 10:57 AM Reporting Lab: [facility] [address] Performing Lab: [facility] [address] ALBUMIN 4.4 g/dL 3.5-5.0 Dec 18, 2024 12:16 PM [facility] HEMOGLOBIN A1C Specimen Type: BLOOD [...] AM Reporting Lab: [facility] [phone] Performing Lab: [facility] [phone] HEMOGLOBIN A1C 7.1 H 4.0-6.0 Dec 18, 2024 12:16 PM [facility] PROTHROMBIN TIME/INR Specimen Type: PLASMA No comment entered. Ordering Provider: BENIGNO KIM A Report Released Date/Time: Sep 27, 2024 10:57 AM Reporting Lab: [facility] [address] Performing Lab: [facility] [address] .INR 0.9 0.8-1.1 .PT 10.3 s 9.4-12.5 Dec 18, 2024 12:16 PM [facility] BASIC METABOLIC PANEL+MG Specimen Type: PLASMA No comment entered. Ordering Provider: BENIGNO KIM A Report Released Date/Time: Sep 27, 2024 10:57 AM Reporting Lab: [facility] [phone] Performing Lab: [facility] [address] CREATININE 1.0 mg/dL 0.7-1.2 UREA NITROGEN 19 mg/dL 8-26 GLUCOSE 118 mg/dL H 70-100 SODIUM 139 mmol/L 136-145 POTASSIUM 4.1 mmol/L 3.5-5.1 CHLORIDE 104 mmol/L 98-107 CO2 25 mmol/L 22-29 CALCIUM 9.6 mg/dL 8.4-10.2 MAGNESIUM 2.1 mg/dL 1.6-2.6 ANION GAP 10 mmol/L 5-15 .CREAT EGFR(CKD-EPI) 80 >60 Dec 18, 2024 12:16 PM [facility] CBC & DIFF Specimen Type: BLOOD Comment: Automated Differential Performed Ordering Provider: BENIGNO KIM A Report Released Date/Time: Sep 27, 2024 10:57 AM Reporting Lab: [facility] [phone] Performing Lab: [facility] [phone] WBC 9.5 4.0-11.0 RBC 5.05 4.60-6.20 HGB [...] Source Jan 10, 2025 08:57 PM 6 [facility] Jan 10, 2025 07:57 PM 7 [facility] Jan 10, 2025 05:58 PM 187.8 27 [facility] Jan 10, 2025 09:21 AM 186 27 [facility] Jan 10, 2025 09:20 AM 98 61 128/73 16 98 7 [facility] Social History: Smoking Status (Most [...] 19, 2023 08:00 AM VA-TOBACCO FORMER USER [facility] Tobacco Use History This section includes a history of the smoking, or tobacco-related health factors, that were collected on or before the date of the Encounter. The data comes from the [place] facility where the Encounter took place. Date/Time Smoking Status/Tobacco Use Comment F acility Nov 19, 2023 08:00 AM VA-TOBACCO QUIT 15 YRS OR MORE [facility] Jan 28, 2023 09:45 AM VA-TOBACCO FORMER USER [facility] Jan 28, 2023 09:45 AM VA-TOBACCO QUIT 15 YRS OR MORE [facility] Oct 30, 2021 03:00 PM VA-TOBACCO FORMER USER [facility] Oct 30, 2021 03:00 PM VA-TOBACCO QUIT 5 TO < 15 YRS [facility] Aug 17, 2019 11:38 AM VA-TOBACCO FORMER USER [facility] Aug 17, 2019 11:38 AM VA-TOBACCO QUIT 5 TO < 15 YRS [facility] Jan 06, 2018 02:39 PM FORMER TOBACCO USER 7Y OR GREATE R [facility] Jan 28, 2017 12:47 PM FORMER TOBACCO USER 7Y OR GREATE R [facility] Jan 21, 2016 03:04 PM FORMER TOBACCO USER 7Y OR GREATE R [facility] Apr 02, 2015 02:05 PM FORMER TOBACCO USER 7Y OR GREATE R [facility] March 01, 2014 09:10 AM FORMER TOBACCO USER 7Y OR GREATE R [facility] Sep 18, 2013 09:13 AM CDM COPD TOBACCO NON-USER [facility] May 28, 2013 11:05 AM LIFETIME NON-TOBACCO USER [facility] May 25, 2013 12:08 PM FORMER TOBACCO USER 7Y OR GREATE R [facility] Jun 18, 2009 09:48 AM FORMER TOBACCO USER 7Y OR GREATE R [facility] Aug 24, 2008 10:10 AM FORMER TOBACCO USE >1Y <7Y [facility] Advance Directives: All historical and [...] March 08, 2023 ADVANCE DIRECTIVE ODILIA CHRISTIANSON [facility] May 02, 2014 ADVANCE DIRECTIVE DISCUSSION QUEENIE SAENZ [facility] May 24, 2013 CLINICAL WARNING GALINDO STUART [facility] Sep 21, 2011 ADVANCE DIRECTIVE JORDAN ZHANG [facility] Radiology Reports: +/- 30 days of [...] the Encounter. The data comes from all [facility] facilities. Date/Time Radiology Report Provider Source Jan 10, 2025 07:58 AM SHOULDER RIGHT 2-3 VIEWS: KEENA ROSA [id number] -[id number] M Exm Date: JAN 10, 2025@07:58 Req Phys: SHELLI KIM Loc: OR-PACU/01-10-2025@15:42 Img Loc: MAIN X-RAY Service: [place] [address] (Case [id number] COMPLETE) SHOULDER RIGHT 2-3 VIEWS (RAD Detailed) CPT:39432 Proc Modifiers : PORTABLE EXAM, OPERATING ROOM EXAM Reason for Study: right reverse TSA Clinical History: OR 6 shoulder rotator cuff arthropathy My pager number on record is: . I confirm that the pager number/cell phone number above is correct for reporting critical results. My correct contact # for critial results is:Valerio KIM [phone] Trainees only: Enter your staff provider's info here: LAST CREATININE 1.0 (12/18/24) Report Status: Verified Date Reported: JAN 10, 2025 Date Verified: JAN 10, 2025 Remediation Technician E-Sig:/ES/MIRANDA BROOKE MD Report: EXAMINATION: SHOULDER RIGHT 2-3 VIEWS 01/10/2025 7:58 AM INDICATION: right reverse TSA Impression: Right reverse TSA. Components appear well seated. Report Sign Date/Time: 01/10/2025 3:39 PM Primary Interpreting Staff: MIRANDA BROOKE MD, RADIOLOGIST (Remediation Technician) /MIRANDA PAULSON [facility] Encounter Notes: All associated encounter notes This section contains the clinical notes associated to the Encounter. Date/Time Encounter Note(s) Provider Source Jan 10, 2025 03:20 PM ANESTHESIOLOGY NOT E: LOCAL TITLE: ANESTHESIA POST-ANESTHESIA EVALUATION STANDARD TITLE: ANESTHESIOLOGY NOTE DATE OF NOTE: JAN 10, 2025@15:20 ENTRY DATE: JAN 10, 2025@16:39:12 AUTHOR: EMERALD MEDINA COSIGNER: URGENCY: STATUS: COMPLETED POST-ANESTHESIA EVALUATION PACU PATIENT MET DISCHARGE CRITERIA Bianka score of > or = 8 ANESTHESIA TYPE General VITAL SIGNS Vital signs stable NORMAL PHYSIOLOGIC SYSTEMS ASSESSMENT Neuro/Mental Health: appropriate mentation or preoperative baseline Airway/Respiratory: normal respiratory status Cardiovascular: appropriate blood pressure, heart rate and rhythm Pain: comfortable, well controlled Postop nausea/vomiting: none Regional anesthesia: sensory and motor function consistent with nerve block STATUS AT SIGNOUT stable DISPOSITION holm COMMENTS c/o pain in his right shoulder- however he fell asleep shortly after receiving 0.5 mg dilaudid. He is easily arousable and asking for coffee. /kyle/ EMERALD MEDINA MD ANESTHESIOLOGIST Signed: 01/10/2025 16:41 EMERALD MEDINA [facility] Jan 10, 2025 10:10 AM ANESTHESIOLOGY NOT E: LOCAL TITLE: ANESTHESIA PRE-INDUCTION NOTE STANDARD TITLE: ANESTHESIOLOGY NOTE DATE OF NOTE: JAN 10, 2025@10:10 ENTRY DATE: JAN 10, 2025@10:28:14 AUTHOR: EMERALD MEDINA COSIGNER: URGENCY: STATUS: COMPLETED ANESTHESIA PREINDUCTION NOTE Patient identified by name and either date of or full social security. Scheduled procedure: Surgery Scheduled Date/Time: Jan 10, 2025 Procedure: Right reverse TSA Pre-Op Diagnosis: shoulder rotator cuff arthropathy PREOPERATIVE ASSESSMENT --------- ASA status: III Patient's preoperative assessment reviewed------- There are no significant changes, new conditions, or additions from the patient's anesthesia preoperative assessment No personal or family history of anesthesia complications NPO status Met ASA guidelines (>2 hrs clear liquids, >6 hrs light meal, >8 hrs heavy meal) Gastroesophogeal Reflux Disease: Yes controlled with medications Functional Capacity in Measure of Exercise Tolerance before surgery (METS): <4limited due to hip and knee pain Obstructive sleep apnea: Yes CPAP with home O2 2 lpm ----SOCIAL HISTORY ------ Tobacco: No Alcohol: No Substance use: No Naltrexone: No Buprenorphine: No Medications taken today: Acetaminophen, Omeprazole Physical Exam HT: 70 in [177.8 cm] (09/25/2024 11:52) WT: 186 lb [84.37 kg] (01/10/2025 09:21) BMI: 26.7 HR: 61 (01/10/2025 09:20) BP: 128/73 (01/10/2025 09:20) RR: 16 (01/10/2025 09:20) O2: 98% (01/10/2025 09:20) Temp: 98 F [36.7 C] (01/10/2025 09:20) Airway Exam: Mallampati Class: III Mouth opening: limited Neck: full range of motion Thyromental distance: </=6cm Dentition: edentulous, full dentures Cardiac System: Cardiovascular exam normal: regular rhythm and rate, no murmur Respiratory: Clear to auscultation, normal respiratory rate and effort Mental/Neuro exam: Alert, oriented, calm, cooperative Abnormal findings: other: numbness hands & feet Anesthetic technique General Anesthesia Airway Endotracheal tube: oral Induction: propofol Maintenance: balanced Monitors/Equipment: Standard montitors Non-invasive: 2nd IV, Cerebral oximetry Invasive monitors: arterial line Postop nausea/vomiting prophylaxis Ondansetron, Dexamethasone Patient/public health representative verbally consents to blood products Informed consent discussion of anesthesia plan The anesthetic plan has been discussed with the patient and/or responsible public health representative. The patient/public health representative has been encouraged to ask questions and any concerns have been addressed. The risks, benefits, side effects, and alternative options of the plan were discussed. The patient/public health representative endorses understanding of the information disclosed. The patient/public health representative voluntarily elects to move forward with the anesthetic plan. Planned destination Phase I PACU LIFE SUSTAINING TREATMENT (LST) - Risks, benefits, and alternatives to life sustaining treatments were discussed with the patient. Patient consents to the following: Full Resuscitation 69 year old male with hypertension, hyperlipidemia, severe COPD- home O2 2lpm, sleep apnea- daily BiPAP, h/o a seizure while in the service, h/o cardiac arrest after getting Demerol, s/p PVC ablation- 12/22/22, h/o pericarditis- January 2023, mild memory disturbance, hypothyroid, arthritis, open angle glaucoma, CAD, NSTEMI-FRED x 1 to rPAV-04/07/20. He mentions having occasional chest tightness a few times but has never required sublingual Nitroglycerine. He states his breathing has been stable for the past few years, has not required to use inhalers for > 5 years, is not orthopneic. I spoke to him at length about the higher risk of need for increased supplemental oxygen or post operative ventilation after a general anesthetic. He expressed an understanding but wishes to proceed. estee /kyle/ EMERALD MEDINA MD ANESTHESIOLOGIST Signed: 01/10/2025 11:06 EMERALD MEDINA [facility]
--- OUTSIDE RECORDS SUMMARY | 2025-01-16 08:11 | XMS_ITS | Encounter Summary ---
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 Date/Time Encounter Type Encounter Description Reason Provider Source Dec 19, 2024 01:20 PM PH1 ASSMT&MGMT NQHP 11-20 TELEPHONE/SURGERY ICD-10-CM Z63.79 Other stressful life events affecting family and household TERESO HANEY Encounter Template Text not used by [facility] Assessments - Encounter Diagnoses This section includes the primary and secondary diagnoses documented for the Encounter. Date/Time Primary/Secondary Diagnosis Diagnosis Name Provider Source Dec 19, 2024 01:20 PM PRIMARY Other stressful life events affecting family and household TERESO HANEY [facility] Dec 19, 2024 01:20 PM SECONDARY Pain in right shoulder TERESO HANEY [facility] Plan of Treatment: Future Appointments (+ 6 months) and Future Tests (+/- 45 days) The Plan of Treatment section includes future care activities for the [facility] [place] [facility] This section includes future appointments and future orders which are active, pending or scheduled. Future Appointments This section includes appointments that were scheduled to occur 6 months from the date of the Encounter, up to a maximum of 20 appointments. The data comes from all [facility] facilities. Appointment Date/Time Appointment Type Appointme nt Facility Name Dec 27, 2024 07:00 AM AMBULATORY - NONE [facility] Dec 28, 2024 10:00 AM AMBULATORY - MEDICINE [facility] Dec 28, 2024 11:00 AM AMBULATORY - REHAB [facility]IC[facility] Jan 01, 2025 01:30 PM AMBULATORY - REHAB [facility] Jan 24, 2025 01:00 PM AMBULATORY - SURGERY [facility] Jan 25, 2025 10:00 AM AMBULATORY - MEDICINE [facility] Jan 25, 2025 11:00 AM AMBULATORY - REHAB [facility] Feb 01, 2025 10:00 AM AMBULATORY - MEDICINE [facility] Feb 01, 2025 11:00 AM AMBULATORY - MEDICINE [facility] Feb 08, 2025 10:00 AM AMBULATORY - MEDICINE [facility] February 22, 2025 10:00 AM AMBULATORY - MEDICINE [facility] February 23, 2025 11:00 AM AMBULATORY - NONE [facility] February 23, 2025 11:30 AM AMBULATORY - SURGERY [facility] March 08, 2025 10:00 AM AMBULATORY - MEDICINE [facility] Apr 09, 2025 01:00 PM AMBULATORY - SURGERY [facility] Active, Pending, and [...] of theEncounter. The data comes from all [place] treatment facilities. Test Date/Time Test Type Test Details Facility Name Dec 11, 2024 11:04 AM Consult Order PT PHYSICA L THERAPY OUTPT ORTHO SURGERY Cons [employer] [facility] Jan 10, 2025 12:00 AM Laboratory - Blood Bank Order TYPE & SCREEN - LAB BLOOD WC [facility] Jan 12, 2025 08:18 AM Consult Order [facility] Cons [employer] Duty Manager's [facility] Jan 22, 2025 12:00 AM Laboratory - Chemi stry Order HEMOGLOBIN A1C BLOOD SP ONCE [facility] Jan 22, 2025 12:00 AM Laboratory - Chemi stry Order BASIC METABOLIC PANEL+MG PLASMA SP [facility] Lab Results: +/- 30 days of the encounter This section includes the Chemistry and Hematology Lab Results on record with [place] for the patient. Radiology Reports and Pathology Reports are provided separately, in subsequent sections. Lab Results This section contains the Chemistry/Hematology Results that were resulted 30 days before or 30 daysafter the date of the Encounter. Date/Time Source Result Type Result - Unit Interpretation Reference Range Comment Jan 11, 2025 12:21 PM [facility] FINGERSTICK GLUCOSE Specimen Type: BLOOD Comment: Save Result Nurse Notified Ordering Provider: ANDREA WOLF Report Released Date/Time: Jan 11, 2025 12:51 PM Reporting Lab: [facility] [phone] Performing Lab: [facility] [phone] FINGERSTICK GLUCOSE 246 mg/dL H 70-100 Jan 11, 2025 07:37 AM [facility] CBC Specimen Type: BLOOD No comment entered. Ordering Provider: ANDREA WOLF Report Released Date/Time: Jan 10, 2025 02:40 PM Reporting Lab: [facility] [phone] Performing Lab: [facility] [phone] WBC 9.7 4.0-11.0 RBC 4.50 L 4.60-6.20 HGB 12.9 g/dL L 13.5-17.9 HCT 42.3 41.0-54.0 MCV 94.0 fL 80.0-100.0 MCH 28.7 pg 27.0-33.0 MCHC 30.5 g/dL L 32.0-37.5 PLT 174 150-400 MPV 11.5 fL 9.1-13.0 RDW 13.3 11.5-14.5 Jan 11, 2025 07:37 AM [facility] BASIC METABOLIC PANEL+MG Specimen Type: PLASMA No comment entered. Ordering Provider: ANDREA WOLF Report Released Date/Time: Jan 10, 2025 02:40 PM Reporting Lab: [facility] [phone] Performing Lab: [facility] [phone] CREATININE 1.0 mg/dL 0.7-1.2 UREA NITROGEN 21 mg/dL 8-26 GLUCOSE 203 mg/dL H 70-100 SODIUM 136 mmol/L 136-145 POTASSIUM 4.1 mmol/L 3.5-5.1 CHLORIDE 102 mmol/L 98-107 CO2 23 mmol/L 22-29 CALCIUM 8.8 mg/dL 8.4-10.2 MAGNESIUM 2.0 mg/dL 1.6-2.6 ANION GAP 11 mmol/L 5-15 .CREAT EGFR(CKD-EPI) 80 >60 Jan 11, 2025 06:10 AM [facility] FINGERSTICK GLUCOSE Specimen Type: BLOOD Comment: Save Result Nurse Notified Ordering Provider: Lilli CHRISTENSEN Report Released Date/Time: Jan 11, 2025 07:41 AM Reporting Lab: [facility] [phone] Performing Lab: [facility] [phone] FINGERSTICK GLUCOSE 220 mg/dL H 70-100 Jan 10, 2025 08:11 PM [facility] F[place]ERSTICK GLUCOSE Specimen Type: BLOOD Comment: Save Result Nurse Notified Ordering Provider: Lilli CHRISTENSEN Report Released Date/Time: Jan 10, 2025 08:36 PM Reporting Lab: [facility] [phone] Performing Lab: [facility] [phone] FINGERSTICK GLUCOSE 239 mg/dL H 70-100 Jan 10, 2025 04:30 PM [facility] FINGERSTICK GLUCOSE Specimen Type: BLOOD Comment: Save Result Nurse Notified Ordering Provider: Lilli CHRISTENSENCE O Report Released Date/Time: Jan 10, 2025 05:34 PM Reporting Lab: [facility] [phone] Performing Lab: [facility] [phone] FINGERSTICK GLUCOSE 190 mg/dL H 70-100 Jan 10, 2025 02:40 PM [facility] FINGERSTICK GLUCOSE Specimen Type: BLOOD Comment: Save Result Nurse Notified Ordering Provider: BENIGNO KIM A Report Released Date/Time: Jan 10, 2025 03:01 PM Reporting Lab: [facility] [phone] Performing Lab: [facility] [phone] FINGERSTICK GLUCOSE 183 mg/dL H 70-100 Jan 10, 2025 08:35 AM [facility] PROTHROMBIN TIME/INR Specimen Type: PLASMA Comment: ~Draw on admission. Call IV team to draw on admission. Ordering Provider: BENIGNO KIM Report Released Date/Time: Jan 10, 2025 08:01 AM Reporting Lab: [facility] [phone] Performing Lab: [facility] [phone] .INR 0.9 0.8-1.1 .PT 10.9 s 9.4-12.5 Jan 10, 2025 08:35 AM [facility] ACT PART THROMBO TIME Specimen Type: PLASMA Comment: ~Draw on admission. Call IV team to draw on admission. Ordering Provider: BENIGNO KIM Report Released Date/Time: Jan 10, 2025 08:01 AM Reporting Lab: [facility] [phone] Performing Lab: [facility] [address] APTT 31.4 s 25.1-36.5 Jan 10, 2025 08:35 AM [facility] CBC Specimen Type: BLOOD No comment entered. Ordering Provider: BENIGNO KIM Report Released Date/Time: Jan 10, 2025 08:01 AM Reporting Lab: [facility] [phone] Performing Lab: [facility] [phone] WBC 6.6 4.0-11.0 RBC 5.00 4.60-6.20 HGB 14.5 g/dL 13.5-17.9 HCT 46.1 41.0-54.0 MCV 92.2 fL 80.0-100.0 MCH 29.0 pg 27.0-33.0 MCHC 31.5 g/dL L 32.0-37.5 PLT 172 150-400 MPV 10.9 fL 9.1-13.0 RDW 13.7 11.5-14.5 Jan 10, 2025 08:35 AM [facility] FINGERSTICK GLUCOSE Specimen Type: BLOOD Comment: Save Result Ordering Provider: BENIGNO KIM A Report Released Date/Time: Jan 10, 2025 10:31 AM Reporting Lab: [facility] [phone] Performing Lab: [facility] [address] FINGERSTICK GLUCOSE 155 mg/dL H 70-100 Jan 10, 2025 08:35 AM [facility] BASIC METABOLIC PANEL+MG Specimen Type: PLASMA No comment entered. Ordering Provider: BENIGNO KIM Report Released Date/Time: Jan 10, 2025 08:01 AM Reporting Lab: [facility] [phone] Performing Lab: [facility] [phone] CREATININE 0.9 mg/dL 0.7-1.2 UREA NITROGEN 19 mg/dL 8-26 GLUCOSE 151 mg/dL H 70-100 SODIUM 138 mmol/L 136-145 POTASSIUM 3.9 mmol/L 3.5-5.1 CHLORIDE 106 mmol/L 98-107 CO2 23 mmol/L 22-29 CALCIUM 9.3 mg/dL 8.4-10.2 MAGNESIUM 2.0 mg/dL 1.6-2.6 ANION GAP 9 mmol/L 5-15 .CREAT EGFR(CKD-EPI) >90 >60 Dec 18, 2024 12:16 PM [facility] [...] Sep 27, 2024 10:57 AM Reporting Lab: [facility] [phone] Performing Lab: [facility] [phone] HEMOGLOBIN A1C 7.1 H 4.0-6.0 Dec 18, 2024 12:16 PM [facility] ALBUMIN Specimen Type: PLASMA No comment entered. Ordering Provider: BENIGNO KIM Report Released Date/Time: Sep 27, 2024 10:57 AM Reporting Lab: [facility] [phone] Performing Lab: [facility] [phone] ALBUMIN 4.4 g/dL 3.5-5.0 Dec 18, 2024 12:16 PM [facility] PROTHROMBIN TIME/INR Specimen Type: PLASMA No comment entered. Ordering Provider: BENIGNO KIM Report Released Date/Time: Sep 27, 2024 10:57 AM Reporting Lab: [facility] [address] Performing Lab: [facility] [address] .INR 0.9 0.8-1.1 .PT 10.3 s 9.4-12.5 Dec 18, 2024 12:16 PM [facility] BASIC METABOLIC PANEL+MG Specimen Type: PLASMA No comment entered. Ordering Provider: BENINGO KIM Report Released Date/Time: Sep 27, 2024 10:57 AM Reporting Lab: [facility] [address] Performing Lab: [facility] [address] CREATININE 1.0 mg/dL 0.7-1.2 UREA NITROGEN 19 [...] Sep 27, 2024 10:57 AM Reporting Lab: [facility] [phone] Performing Lab: [facility] [address] WBC 9.5 4.0-11.0 RBC 5.05 4.60-6.20 HGB [...] and tobacco- related health factors from the [place] facility where the Encounter took place. Current Smoking Status This section includes the most current smoking, or tobacco-related health factor, from the [place] facility where the Encounter took place. Date/Time Current Smoking Status Comment Serina reece Nov 19, 2023 08:00 AM [place]-TOBACCO FORMER USER [facility] Tobacco Use History This section includes a history of the smoking, or tobacco-related health factors, that were collected on or before the date of the Encounter. The data comes from the [place] facility where the Encounter took place. Date/Time [...] ALL of a patient's completed or amended [place] Advance and Rescinded Directives. The entries below indicate that a directive exists for the patient, but an actual copy is not included with this document. The data comes from all [place] facilities. Date Advance Directives Provider Source March 08, 2023 ADVANCE DIRECTIVE ODILIA CHRISTIANSON AY[facility]NA [facility] May 02, 2014 ADVANCE DIRECTIVE DISCUSSION QUEENIE SAENZ [facility] May 24, 2013 CLINICAL WARNING GALINDO STUART [facility] Sep 21, 2011 ADVANCE DIRECTIVE JORDAN ZHANG [facility] Radiology Reports: +/- 30 days of [...] the Encounter. The data comes from all [place] treatment facilities. Date/Time Radiology Report Provider Source Jan 10, 2025 07:58 AM SHOULDER RIGHT 2-3 VIEWS: KEENA ROSA [id number] -[id number] M Exm Date: JAN 10, 2025@07:58 Req Phys: SHELLI KIM Loc: OR-PACU/01-10-2025@15:42 Img Loc: MAIN X-RAY Service: [place] [address] (Case [id number] COMPLETE) SHOULDER RIGHT 2-3 VIEWS (RAD Detailed) CPT:27717 Proc Modifiers : PORTABLE EXAM, OPERATING ROOM EXAM Reason for Study: right reverse TSA Clinical History: OR 6 shoulder rotator cuff arthropathy My pager number on record is: . I confirm that the pager number/cell phone number above is correct for reporting critical results. My correct contact # for critial results is:Valerio KIM [phone] Trainees only: Enter your staff provider's info here: LAST CREATININE 1.0 (12/18/24) Report Status: Verified Date Reported: JAN 10, 2025 Date Verified: JAN 10, 2025 Mat Maker E-Sig:/ES/MIRANDA BROOKE MD Report: EXAMINATION: SHOULDER RIGHT 2-3 VIEWS 01/10/2025 7:58 AM INDICATION: right reverse TSA Impression: Right reverse TSA. Components appear well seated. Report Sign Date/Time: 01/10/2025 3:39 PM Primary Interpreting Staff: MIRANDA BROOKE MD, RADIOLOGIST (Mat Maker) /RTS MIRANDA BROOKE [facility] Encounter Notes: All associated encounter notes This section contains the clinical notes associated to the Encounter. Date/Time Encounter Note(s) Provider Source Dec 19, 2024 03:56 PM SOCIAL WORK CONSULT: LOCAL TITLE: SOCIAL WORK CONSULT STANDARD TITLE: SOCIAL WORK CONSULT DATE OF NOTE: DEC 19, 2024@15:56 ENTRY DATE: DEC 19, 2024@15:56:52 AUTHOR: MYAH HANEY COSIGNER: URGENCY: STATUS: COMPLETED CONSULT: Provisional Diagnosis: Pain in right Shoulder(ICD-10-CM M25.511) Reason For Request: Tevin is scheduled for Right reverse TSA with Dr. kim on 01/10. Home health helps with setting up medications every 2 weeks and does receive home health cna services. Tevin walks with a rollator and has a knee brace on his left leg. He uses 2L of O2/ uses a bipap at night. Consult placed to discuss possible discharge needs. ACTION: In response to this consult, sports book writer contacted via phone following 12/18/24 orthopedic pre-operative appointment. Tevin did not attend 12/19/24 OT pre-operative appointment however has rescheduled OT appointment for 12/22/24. Tevin and sports book writer previously spoke via phone regarding tevin's upcoming surgery (see 11/15/24 Progress Note). [employer] re-introduced self to tevin and engaged with in discussion regarding d/c planning concerns. [place] believes going to the bathroom, donning leg brace that wears at all times besides when showering, and using CPAP will be difficult with one arm, stating, I don't know if I am going to be able to do it. [place] reports buying new higher toilet (18-inch) and bidet that plans to have installed prior to surgical date. asks if [place] would install equipment; sports book writer advised that she does not believe [place] assists with installing privately purchased equipment. [facility] provider informed that would likely need to go to extended care for a couple of days after hospital admission. [employer] advised that SNF stays are generally longer than a couple of days. Tevin clarified would be willing to go to SNF if recommended for as long as recommended. Tevin is administratively eligible for [place] CN placement based on 80% SC. reports reviewing [place] [facility] list previously provided by sports book writer. states he would be willing to go to [facility], as it is the only [facility] option near . [employer] advised that should be cleared to d/c to home by PT and OT that would need to be able to manage own care needs with available supports. [place] has [facility] services. [place] indicates limited additional assistance from support system as per 11/15/24 SW discussion. [employer] advised that could consider paying for additional [facility] services if needed beyond what [facility] can provide although appears uncertain about exploring this option, as states feels like second fiddle to current [facility] agency. [place] reports 's [id number] will provide transportation to surgical admissions. reports his daughter or [id number] could provide d/c transportation. did not have further questions for SW. [employer] provided with sports book writer's direct phone number and requested contact sports book writer should have further questions for SW regarding upcoming s/p. Berhane also left a vm for Admissions at [facility] in [place], [place], (p:[phone]) with 's surgery date per discussion with . /kyle/ KAM [employer] VIDEO RECORDER MECHANIC Signed: 12/19/2024 16:03 MYAH HANEY [facility]
--- OUTSIDE RECORDS SUMMARY | 2025-01-16 08:11 | XMS_ITS | Encounter Summary ---
Author Name [facility] [place] [facility] [place] [facility] [facility] [place] Address [address] [place] [address] Care Team Providers Care Vessel Specialist Name Role Phone ZEYN MARTIN Primary Care Provider Unavailabl e Insurance [...] PART A Oct 18, 2013 PART A [id number] Mary ROSA PATIENT MEDICARE (WNR) MEDICARE ([place]) PART B Oct 18, 2013 PART B [id number] Mary ROSA EORODNEY PATIENT MEDICARE (WNR) MEDICARE (M) PART A Oct 18, 2013 PART A [id number] Mary ROSA PATIENT Selected Encounter This section includes the information on record at [place] for the Encounter. Date/Time Encounter Type Encounter Description Reason Provider Source Mar 24, 2024 02:00 PM OFFICE O/P EST MOD 30 MIN OPHTHALMOLOGY ICD-10-CM H40.1131 Primary open-angle glaucoma, bilateral, mild stage ABA TILLEY Bandar Encounter Template Text not used by [place] Assessments - Encounter Diagnoses This section includes the primary and secondary diagnoses documented for the Encounter. Date/Time Primary/Secondary Diagnosis Diagnosis Name Provider Source Mar 24, 2024 02:37 PM PRIMARY Primary open-angle glaucoma, bilateral, mild stage ABA TIL[facility] Mar 24, 2024 02:37 PM SECONDARY Age-related nuclear cataract, bilateral ABA TILLEY [facility] Mar 24, 2024 02:37 PM SECONDARY Myopia, bilateral ABA TIL[facility] Mar 24, 2024 02:37 PM SECONDARY Type 2 diabetes mellitus without complications ABA TIL[facility] Plan of Treatment: Future Appointments (+ 6 months) and Future Tests (+/- 45 days) The Plan of Treatment section includes future care activities for the patient from all [place] [facility] This section includes future appointments and future orders which are active, pending or scheduled. Future Appointments This section includes appointments that were scheduled to occur 6 months from the date of the Encounter, up to a maximum of 20 appointments. The data comes from all [place] treatment facilities. Appointment Date/Time Appointment Type Appointme nt Facility Name Mar 27, 2024 01:00 PM [place] [place] [facility] Mar 27, 2024 02:00 [facility] Apr 04, 2024 12:45 PM [facility] [place] [facility] Apr 06, 2024 10:00 AM [place] [facility] Apr 14, 2024 01:00 PM AM[facility]UL[facility] SUR[facility] Apr 27, 2024 10:00 AM [place] [facility] May 11, 2024 10:00 AM [place]IC[place] [facility] May 12, 2024 01:30 PM [place] [facility] May 12, 2024 02:30 PM [place] - [place]ONE [place] [facility] May 25, 2024 10:00 AM [place] [place]IC[place] [facility] May 30, 2024 01:00 PM AM[facility] SUR[facility] May 30, 2024 01:45 PM [place]ORY - NONE [place] [facility] Jun 08, 2024 10:00 AM [place] [place]IC[place] [facility] Jun 20, 2024 07:00 AM [place]ORY - [place]ONE [place] [facility] Jun 21, 2024 01:00 PM AMBULATORY - SURGERY PATRICIA WALDRONLIS [facility] Jun 21, 2024 02:15 PM AMBULATORY - NONE WON BALDERAS [facility] Jun 29, 2024 07:00 AM AMBULATORY - NONE ROBINAO SHERRIE [facility] Jun 29, 2024 10:00 AM [facility] Jul 13, 2024 10:00 AM [facility] Jul 27, 2024 10:00 AM [facility] - MEDICINE [facility] Active, Pending, and Scheduled Orders This section includes a listing of several types of active, pending, and scheduled orders, including clinic medications orders, diagnostic test orders, procedure orders and consult orders; where the start date of the order is 45 days before the date of the Encounter or 45 days after the date of theEncounter. The data comes from all [place] treatment facilities. Test Date/Time Test Type Test Details Facility Name February 25, 2024 12:00 AM Laboratory - Chemi stry Order BASIC METABOLIC PANEL+MG PLASMA SP ONCE [facility] February 25, 2024 12:00 AM Laboratory - Chemi stry Order HEMOGLOBIN A1C BLOOD SP ONCE [facility] February 25, 2024 12:00 AM Laboratory - Chemi stry Order MICROALBUMIN/CREATININ E RATIO URINE URINE SP ONCE [facility] February 25, 2024 12:00 AM Laboratory - Chemi stry Order LIPID PANEL,NON-FASTING PLASMA SP ONCE [facility] Lab Results: +/- 30 days of [...] Comment Mar 27, 2024 01:[address] [facility] HEMOGLOBIN A1C Specimen Type: BLOOD Comment: [...] Sep 28, 2023 07:33 AM Reporting Lab: [facility] [id number] Performing Lab: [facility] [id number] HEMOGLOBIN A1C 7.1 H 4.0-6.0 Mar 27, 2024 01:[address] [facility] BASIC METABOLIC PANEL+MG Specimen Type: PLASMA No comment entered. Ordering Provider: KRISTEN BARRETO Report Released Date/Time: Sep 27, 2023 02:33 PM Reporting Lab: [facility] [id number] Performing Lab: [facility] [id number] CREATININE 0.9 mg/dL 0.7-1.2 UREA NITROGEN 17 mg/dL 8-26 GLUCOSE 122 mg/dL H 70-100 SODIUM 138 mmol/L 136-145 POTASSIUM 3.9 mmol/L 3.5-5.1 CHLORIDE 104 mmol/L 98-107 CO2 26 mmol/L 22-29 CALCIUM 9.9 mg/dL 8.4-10.2 MAGNESIUM 2.0 mg/dL 1.6-2.6 ANION GAP 8 mmol/L 5-15 .CREAT EGFR(CKD-EPI ) >90 >60 Mar 27, 2024 01:[address] [facility] TSH W/REFLEX TO FREE T4 Specimen Type: PLASMA No comment entered. Ordering Provider: KRISTEN BARRETO Report Released Date/Time: Mar 27, 2024 01:44 PM Reporting Lab: [facility] [id number] Performing Lab: [facility] [id number] TSH 2.93 u[IU]/mL 0.35-4.94 Social History: Smoking Status (Most current) and [...] 2023 08:00 AM VA-TOBACCO FORMER USER [facility] Tobacco Use History This section includes a history of the smoking, or tobacco-related health factors, that were collected on or before the date of the Encounter. The data comes from the [place] facility where the Encounter took place. Date/Time Smoking Status/Tobacco Use Comment Lanie irby Nov 19, 2023 08:00 AM VA-TOBACCO QUIT [address] [facility] Jan 28, 2023 09:45 AM VA-TOBACCO FORMER USER [facility] Jan 28, 2023 09:45 AM VA-TOBACCO QUIT [address] [facility] Oct 30, 2021 03:00 PM VA-TOBACCO FORMER USER [facility] Oct 30, 2021 03:00 PM VA-TOBACCO QUIT 5 TO < [address] [facility] Aug 17, 2019 11:38 AM VA-TOBACCO FORMER USER [facility] Aug 17, 2019 11:38 AM VA-TOBACCO QUIT 5 TO < [address] [facility] Jan 06, 2018 02:39 PM FORMER TOBACCO USER 7Y OR GREATE R [facility] Jan 28, 2017 12:47 PM FORMER TOBACCO USER 7Y OR GREATE R [facility] Jan 21, 2016 03:04 PM FORMER TOBACCO USER 7Y OR GREATE R [facility] Apr 02, 2015 02:05 PM FORMER TOBACCO USER 7Y OR GREATE R [facility] March 01, 2014 09:10 AM FORMER TOBACCO USER 7Y OR GREATE R [facility] Sep 18, 2013 09:13 AM CDM COPD TOBACCO NON-USER [facility] May 28, 2013 11:05 AM LIFETIME NON-TOBACCO USER [facility] May 25, 2013 12:08 PM FORMER TOBACCO USER 7Y OR GREATE R [facility] Jun 18, 2009 09:48 AM FORMER TOBACCO USER 7Y OR GREATE R [facility] Aug 24, 2008 10:10 AM FORMER TOBACCO USE >1Y <7Y [facility] Advance Directives: All historical and current [...] 08, 2023 ADVANCE DIRECTIVE ODILIA [facility]IANSON [facility] May 02, 2014 ADVANCE DIRECTIVE DISCUSSION QUEENIE SAENZ [facility] May 24, [address] [facility] Sep 21, 2011 ADVANCE DIRECTIVE JORDAN ZHANG [facility] Radiology Reports: +/- 30 days of [...] 12:[address] (AP) ABDOMEN/PE LVIS (P): KEENA ROSA [id number] -1955 M Exm Date: APR 04, 2024@12:17 Req Phys: AMADEO SIEGEL Loc: [facility] UROL CONSULT 2 CHRISTAL (Re Img Loc: CT IMAGING Service: [place] [address] (Case [id number] COMPLETE) CT (AP) ABDOMEN/PELVIS W/O CONTRA(CT Detailed) CPT:07921 Reason for Study: f/u stone/hydro surviellence imaging. Clinical History: Defer to radiologist for final protocol. f/u stone/hydro surviellence imaging Responsible provider name and phone number to notify for critical findings if other than user placing the order and pager listed below: User placing orders pager: [phone] LAST 3: Collection DT Specimen Test Name [...] 09, 2024 Date Verified: APR 09, 2024 Retort Fireman E-Sig: Report: CT (AP) ABDOMEN/PELVIS W/O CONTRAST [PRINTSET] HISTORY: f/u stone/hydro surviellence imaging. COMPARISON: 01/11/2024 TECHNIQUE: CT of the abdomen and pelvis with multiplanar reformats was performed at the local [place] facility. 743 images were received by the [place] National Teleradiology Program (NTP) for interpretation. RADIATION DOSE (mGy*cm): [...] nonobstructing nephrolithiasis. READING PHYSICIAN: Ej Cabrera M.D. -[id number] 04/09/2024 11:42 [facility] National Teleradiology Program [phone] (For Medical Practitioner Use Only) Attention Patients / Veterans: If you have questions or concerns about these test results, please contact your ordering provider or primary care team. Primary Interpreting Staff: RADIOLOGY,OUTSIDE SERVICE, Staff Physician / RADIOLOGY,OUTSIDE SERVICE [facility] Encounter Notes: All associated encounter notes This section contains the clinical notes associated to the Encounter. Date/Time Encounter Note(s) Provider Source Mar 24, 2024 02:14 PM OPHTHALMOLOGY ATTE CRESCENCIO NOTE: LOCAL TITLE: OPHTHALMOLOGY CLINIC NOTE STANDARD TITLE: OPHTHALMOLOGY ATTENDING NOTE DATE OF NOTE: MAR 24, 2024@14:14 ENTRY DATE: MAR 24, 2024@14:15:07 AUTHOR: ABA TILLEY EXP COSIGNER: URGENCY: STATUS: COMPLETED 69 yo here for a VF and IOP check. The pt is having no issues with the drops. I have reviewed and agree with the case technician note of today Patient is alert and oriented X3 and mood and affect are appropriate. SLE: Ext: Nl ou LLL: Nl ou C/S: W and Q ou K: Clear ou AC: D and Q ou Iris: R and F ou Lens: 1+ NSC OU Ta Assessment/Plan: # POAG, Mild OU - IOPs are controlled. The VFs are stable OU. CCM. Recheck VF at full exam in 6 months. - Takes Lat ou qhs, simb ou bid - s/p ALT LE inf 04/30 - FHx - Neg - Tm - CCT 05/30 - 567/584 - OCT 10/09 - Bord S Th, stable OD, S and I Th stable OS - HVF 04/10 - LTF, stable OU - Gonio 04/10 - CB open 360 OU # DM - No DFE today. # Cataracts OU - Good vision, monitor. # Myopia OU - No Rx today. RTC: 6 months vtdmr 24-2c rnfl LOCAL TITLE: SCRATCHER NOTE STANDARD TITLE: SCRATCHER NOTE DATE OF NOTE: MAR 24, 2024@13:59 ENTRY DATE: MAR 24, 2024@13:59:21 AUTHOR: SHO CRUM EXP COSIGNER: URGENCY: STATUS: COMPLETED Eye Start Exam Patient: KEENA ROSA Sex: MALE SSN: [id number] Birthdate: [birth year] Chief complaint: 6 mo F/U - pt is having difficulty with most recent glasses, seems too strong at distance and near, prefers his old glasses - needs a lot of light for fine print - taking drops as directed History of Present Illness: Location: Intensity: Duration: Follow Up Exam Eye Medications Lat ou qhs, simb ou bid Allergies: LISINOPRIL (February 18, 2009) LOSARTAN (February 18, 2009) AMLODIPINE (Jun 18, 2009) DEMEROL HYDROCHLORIDE INJECTION 50 MG/ML (March 04, 2014) GABAPENTIN (Jan 23, 2016) DULOXETINE (Feb 11, 2016) No new Allergies. Last refraction: 09-22-23 Vision: OD:SC(without glasses) OD: 20/25-1 Pinhole: 20/ Near: 20/ Vision: OS:SC(without glasses) 0S: 20/25-1 Pinhole: 20/ Near: 20/ Current glasses: OD:-0.75 +1.07C362 Prism: OS:-0.75 +0.36D747 Prism: Add: +2.50 Refraction: Manifest: YES Automated: NO OD:-1.00 +0.14S234 20/20 OS:-0.25 X 20/20 not sharp Balance: Add: +2.50 Near vision: OD : OS : OU Comment: Confrontational Bhatt: Full to finger counting: Right: Left: Extra Ocular Movement: Normal Pupils: Right: Round Left: Round Size: Right: 3 Left: 3 React to light: Right: Yes Left: Yes Afferent pupil defect: Right:No Grade: Left: No Grade: Note: Intra-ocular pressure (IOP): OD: 16 OS: 17 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 Mar 24, 2024 01:59 PM OPHTHALMOLOGY TECH NICIAN NOTE: LOCAL TITLE: SCRATCHER NOTE STANDARD TITLE: SCRATCHER NOTE DATE OF NOTE: MAR 24, 2024@13:59 ENTRY DATE: MAR 24, 2024@13:59:21 AUTHOR: SHO CRUM EXP COSIGNER: URGENCY: STATUS: COMPLETED Eye Start Exam Patient: KEENA ROSA Sex: MALE SSN: [id number] Birthdate: [birth year] Chief complaint: 6 mo F/U - pt is having difficulty with most recent glasses, seems too strong at distance and near, prefers his old glasses - needs a lot of light for fine print - taking drops as directed History of Present Illness: Location: Intensity: Duration: Follow Up Exam Eye Medications Lat ou qhs, simb ou bid Allergies: LISINOPRIL (February 18, 2009) LOSARTAN (February 18, 2009) AMLODIPINE (Jun 18, 2009) DEMEROL HYDROCHLORIDE INJECTION 50 MG/ML (March 04, 2014) GABAPENTIN (Jan 23, 2016) DULOXETINE (Feb 11, 2016) No new Allergies. Last refraction: 09-22-23 Vision: OD:SC(without glasses) OD: 20/25-1 Pinhole: 20/ Near: 20/ Vision: OS:SC(without glasses) 0S: 20/25-1 Pinhole: 20/ Near: 20/ Current glasses: OD:-0.75 +1.05S850 Prism: OS:-0.75 +0.94E695 Prism: Add: +2.50 Refraction: Manifest: YES Automated: NO OD:-1.00 +0.67G485 20/20 OS:-0.25 X 20/20 not sharp Balance: Add: +2.50 Near vision: OD : OS : OU Comment: Confrontational Bhatt: Full to finger counting: Right: Left: Extra Ocular Movement: Normal Pupils: Right: Round Left: Round Size: Right: 3 Left: 3 React to light: Right: Yes Left: Yes Afferent pupil defect: Right:No Grade: Left: No Grade: Note: Intra-ocular pressure (IOP): OD: 16 OS: 17 Applanation /kyle/ [facility]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
--- OUTSIDE RECORDS SUMMARY | 2025-01-16 08:12 | XMS_ITS | Encounter Summary ---
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 Date/Time Encounter Type Encounter Description Reason Pro vider Source Dec 18, 2024 03:19 PM Outpatient Encounter EVENT (HISTORICAL) IHE Encounter Template Text not used by [place] Plan of Treatment: Future Appointments (+ 6 [...] appointments. The data comes from all [facility]. Appointment Date/Time Appointment Type Appointme nt Facility Name Dec 19, 2024 11:00 AM AMBULATORY - REHAB MEDICIN E [facility] Dec 27, 2024 07:00 AM AMBULATORY - NONE [facility] Dec 28, 2024 10:00 AM AMBULATORY - MEDICINE [facility] Dec 28, 2024 11:00 [facility] Jan 01, 2025 01:30 PM AMBULATORY - REHAB MEDICIN [facility] Jan 24, 2025 01:00 PM AMBULATORY - SURGERY [facility] Jan 25, 2025 10:00 AM AMBULATORY - MEDICINE [facility] Jan 25, 2025 11:00 AM AMBULATORY - REHAB [facility] Feb 01, 2025 10:00 AM AMBULATORY - MEDICINE [facility] Feb 01, 2025 11:00 AM AMBULATORY - MEDICINE [facility] Feb 08, 2025 10:00 AM AMBULATORY - MEDICINE [facility] February 22, 2025 10:00 AM AMBULATORY - MEDICINE [facility] February 23, 2025 11:00 AM AMBULATORY - NONE [facility] February 23, 2025 11:30 AM AMBULATORY - SURGERY [facility] March 08, 2025 10:00 AM AMBULATORY - MEDICINE [facility] Apr 09, 2025 01:00 PM AMBULATORY - SURGERY [facility] Active, Pending, and Scheduled Orders This section includes a listing of several types of active, pending, and scheduled orders, including clinic medications orders, diagnostic test orders, procedure orders and consult orders; where the start date of the order is 45 days before the date of the Encounter or 45 days after the date of theEncounter. The data comes from all [facility]. Test Date/Time Test Type Test Details Facility Name Dec 11, 2024 11:04 AM Consult Order PT PHYSICA L THERAPY OUTPT ORTHO SURGERY [employer] Supervisor's Choice [facility] Jan 10, 2025 12:00 AM Laboratory - Blood Bank Order TYPE & SCREEN - LAB BLOOD WC [facility] Jan 12, 2025 08:18 AM Consult Order [facility] [employer] Supervisor's Choice [facility] Jan 22, 2025 12:00 AM Laboratory - Chemi stry Order HEMOGLOBIN A1C BLOOD SP ONCE [facility] Jan 22, 2025 12:00 AM Laboratory - Chemi stry Order BASIC METABOLIC PANEL+MG PLASMA SP [facility] Lab Results: +/- 30 days of the encounter This section includes the Chemistry and Hematology Lab Results on record with [place] for the patient. Radiology Reports and Pathology Reports are provided separately, in subsequent sections. Lab Results This section contains the Chemistry/Hematology Results that were resulted 30 days before or 30 daysafter the date of the Encounter. Date/Time Source Result Type Result - Unit Interpretation Reference Range Comment Jan 11, 2025 12:21 PM [facility] FINGERSTICK GLUCOSE Specimen Type: BLOOD Comment: Save Result Nurse Notified Ordering Provider: ANDREA WOLF Report Released Date/Time: Jan 11, 2025 12:51 PM Reporting Lab: [facility] [phone] Performing Lab: [facility] [address] FINGERSTICK GLUCOSE 246 mg/dL H 70-100 Jan 11, 2025 07:37 AM [facility] CBC Specimen Type: BLOOD No comment entered. Ordering Provider: NADREA WOLF Report Released Date/Time: Jan 10, 2025 02:40 PM Reporting Lab: [facility] [phone] Performing Lab: [facility] [address] WBC 9.7 4.0-11.0 RBC 4.50 L 4.60-6.20 HGB 12.9 g/dL L 13.5-17.9 HCT 42.3 41.0-54.0 MCV 94.0 fL 80.0-100.0 MCH 28.7 pg 27.0-33.0 MCHC 30.5 g/dL L 32.0-37.5 PLT 174 150-400 MPV 11.5 fL 9.1-13.0 RDW 13.3 11.5-14.5 Jan 11, 2025 07:37 AM [facility] BASIC METABOLIC PANEL+MG Specimen Type: PLASMA No comment entered. Ordering Provider: ANDREA WOLF Report Released Date/Time: Jan 10, 2025 02:40 PM Reporting Lab: [facility] [phone] Performing Lab: [facility] [phone] CREATININE 1.0 mg/dL 0.7-1.2 UREA NITROGEN 21 mg/dL 8-26 GLUCOSE 203 mg/dL H 70-100 SODIUM 136 mmol/L 136-145 POTASSIUM 4.1 mmol/L 3.5-5.1 CHLORIDE 102 mmol/L 98-107 CO2 23 mmol/L 22-29 CALCIUM 8.8 mg/dL 8.4-10.2 MAGNESIUM 2.0 mg/dL 1.6-2.6 ANION GAP 11 mmol/L 5-15 .CREAT EGFR(CKD-EPI) 80 >60 Jan 11, 2025 06:10 AM [facility] FINGERSTICK GLUCOSE Specimen Type: BLOOD Comment: Save Result Nurse Notified Ordering Provider: Lilli CHRISTENSEN Report Released Date/Time: Jan 11, 2025 07:41 AM Reporting Lab: [facility] [phone] Performing Lab: [facility] [address] FINGERSTICK GLUCOSE 220 mg/dL H 70-100 Jan 10, 2025 08:11 PM [facility] FINGERSTICK GLUCOSE Specimen Type: BLOOD Comment: Save Result Nurse Notified Ordering Provider: Lilli CHRISTENSEN Report Released Date/Time: Jan 10, 2025 08:36 PM Reporting Lab: [facility] [address] Performing Lab: [facility] [address] FINGERSTICK GLUCOSE 239 mg/dL H 70-100 Jan 10, 2025 04:30 PM [facility] FINGERSTICK GLUCOSE Specimen Type: BLOOD Comment: Save Result Nurse Notified Ordering Provider: Lilli CHRISTENSEN Report Released Date/Time: Jan 10, 2025 05:34 PM Reporting Lab: [facility] [phone] Performing Lab: [facility] [address] FINGERSTICK GLUCOSE 190 mg/dL H 70-100 Jan 10, 2025 02:40 PM [facility] FINGERSTICK GLUCOSE Specimen Type: BLOOD Comment: Save Result Nurse Notified Ordering Provider: BENIGNO KIM A Report Released Date/Time: Jan 10, 2025 03:01 PM Reporting Lab: [facility] [phone] Performing Lab: [facility] [address] FINGERSTICK GLUCOSE 183 mg/dL H 70-100 Jan 10, 2025 08:35 AM [facility] ACT PART THROMBO TIME Specimen Type: PLASMA Comment: ~Draw on admission. Call IV team to draw on admission. Ordering Provider: BENIGNO KIM A Report Released Date/Time: Jan 10, 2025 08:01 AM Reporting Lab: [facility] [address] Performing Lab: [facility] [address] APTT 31.4 s 25.1-36.5 Jan 10, 2025 08:35 AM [facility] PROTHROMBIN TIME/INR Specimen Type: PLASMA Comment: ~Draw on admission. Call IV team to draw on admission. Ordering Provider: BENIGNO KIM Report Released Date/Time: Jan 10, 2025 08:01 AM Reporting Lab: [facility] [phone] Performing Lab: [facility] [address] .INR 0.9 0.8-1.1 .PT 10.9 s 9.4-12.5 Jan 10, 2025 08:35 AM [facility] CBC Specimen Type: BLOOD No comment entered. Ordering Provider: BENIGNO KIM Report Released Date/Time: Jan 10, 2025 08:01 AM Reporting Lab: [facility] [address] Performing Lab: [facility] [address] WBC 6.6 4.0-11.0 RBC 5.00 4.60-6.20 HGB 14.5 g/dL 13.5-17.9 HCT 46.1 41.0-54.0 MCV 92.2 fL 80.0-100.0 MCH 29.0 pg 27.0-33.0 MCHC 31.5 g/dL L 32.0-37.5 PLT 172 150-400 MPV 10.9 fL 9.1-13.0 RDW 13.7 11.5-14.5 Jan 10, 2025 08:35 AM [facility] FINGERSTICK GLUCOSE Specimen Type: BLOOD Comment: Save Result Ordering Provider: BENIGNO KIM A Report Released Date/Time: Jan 10, 2025 10:31 AM Reporting Lab: [facility] [address] Performing Lab: [facility] [address] FINGERSTICK GLUCOSE 155 mg/dL H 70-100 Jan 10, 2025 08:35 AM [facility] BASIC METABOLIC PANEL+MG Specimen Type: PLASMA No comment entered. Ordering Provider: BENIGNO KIM A Report Released Date/Time: Jan 10, 2025 08:01 AM Reporting Lab: [facility] [address] Performing Lab: [facility] [address] CREATININE 0.9 mg/dL 0.7-1.2 UREA NITROGEN 19 mg/dL 8-26 GLUCOSE 151 mg/dL H 70-100 SODIUM 138 mmol/L 136-145 POTASSIUM 3.9 mmol/L 3.5-5.1 CHLORIDE 106 mmol/L 98-107 CO2 23 mmol/L 22-29 CALCIUM 9.3 mg/dL 8.4-10.2 MAGNESIUM 2.0 mg/dL 1.6-2.6 ANION GAP 9 mmol/L 5-15 .CREAT EGFR(CKD-EPI) >90 >60 Dec 18, 2024 12:16 PM [facility] HEMOGLOBIN A1C Specimen Type: BLOOD [...] 10:57 AM Reporting Lab: [facility] [address] Performing Lab: [facility] [address] HEMOGLOBIN A1C 7.1 H 4.0-6.0 Dec 18, 2024 12:16 PM [facility] ALBUMIN Specimen Type: PLASMA No comment entered. Ordering Provider: BENIGNO KIM A Report Released Date/Time: Sep 27, 2024 10:57 AM Reporting Lab: [facility] [address] Performing Lab: [facility] [address] ALBUMIN 4.4 g/dL 3.5-5.0 Dec 18, 2024 12:16 PM [facility] PROTHROMBIN TIME/INR Specimen Type: PLASMA No comment entered. Ordering Provider: BENIGNO KIM A Report Released Date/Time: Sep 27, 2024 10:57 AM Reporting Lab: [facility] [address] Performing Lab: [facility] [address] .INR 0.9 0.8-1.1 .PT 10.3 s 9.4-12.5 Dec 18, 2024 12:16 PM [facility] BASIC METABOLIC PANEL+MG Specimen Type: PLASMA No comment entered. Ordering Provider: BENIGNO KIM A Report Released Date/Time: Sep 27, 2024 10:57 AM Reporting Lab: [facility] [address] Performing Lab: [facility] [address] CREATININE 1.0 mg/dL 0.7-1.2 UREA NITROGEN 19 mg/dL 8-26 GLUCOSE 118 mg/dL H 70-100 SODIUM 139 mmol/L 136-145 POTASSIUM 4.1 mmol/L 3.5-5.1 CHLORIDE 104 mmol/L 98-107 CO2 25 mmol/L 22-29 CALCIUM 9.6 mg/dL 8.4-10.2 MAGNESIUM 2.1 mg/dL 1.6-2.6 ANION GAP 10 mmol/L 5-15 .CREAT EGFR(CKD-EPI) 80 >60 Dec 18, 2024 12:16 PM [facility] CBC & DIFF Specimen Type: BLOOD Comment: Automated Differential Performed Ordering Provider: BENIGNO KIM A Report Released Date/Time: Sep 27, 2024 10:57 AM Reporting Lab: [facility] [address] Performing Lab: [facility] [address] WBC 9.5 4.0-11.0 RBC 5.05 4.60-6.20 HGB [...] 18, 2024 02:06 PM 72 111/72 95 [facility] Social History: Smoking Status (Most current) and Tobacco Use (All prior to encounter date) This section includes the most current, and the historical, smoking and tobacco- related health factors from the [place] facility where the Encounter took place. Current Smoking Status This section includes the most current smoking, or tobacco-related health factor, from the [place] facility where the Encounter took place. Date/Time Current Smoking Status Comment Serina reece Nov 19, 2023 08:00 AM VA-TOBACCO FORMER USER [facility] Tobacco Use History This section includes a history of the smoking, or tobacco-related health factors, that were collected on or before the date of the Encounter. The data comes from the [place] facility where the Encounter took place. Date/Time Smoking Status/Tobacco Use Comment F mahamed Nov 19, 2023 08:00 AM VA-TOBACCO QUIT 15 YRS OR MORE [facility] Jan 28, 2023 09:45 AM VA-TOBACCO FORMER USER [facility] Jan 28, 2023 09:45 AM VA-TOBACCO QUIT 15 YRS OR MORE [facility] Oct 30, 2021 03:00 PM VA-TOBACCO FORMER USER [facility] Oct 30, 2021 03:00 PM VA-TOBACCO QUIT 5 TO < 15 YRS [facility] Aug 17, 2019 11:38 AM VA-TOBACCO FORMER USER [facility] Aug 17, 2019 11:38 AM VA-TOBACCO QUIT 5 TO < 15 YRS [facility] Jan 06, 2018 02:39 PM FORMER TOBACCO USER 7Y OR GREATE R [facility] Jan 28, 2017 12:47 PM FORMER TOBACCO USER 7Y OR GREATE R [facility] Jan 21, 2016 03:04 PM FORMER TOBACCO USER 7Y OR GREATE R [facility] Apr 02, 2015 02:05 PM FORMER TOBACCO USER 7Y OR GREATE R [facility] March 01, 2014 09:10 AM FORMER TOBACCO USER 7Y OR GREATE R [facility] Sep 18, 2013 09:13 AM CDM COPD TOBACCO NON-USER [facility] May 28, 2013 11:05 AM LIFETIME NON-TOBACCO USER [facility] May 25, 2013 12:08 PM FORMER TOBACCO USER 7Y OR GREATE R [facility] Jun 18, 2009 09:48 AM FORMER TOBACCO USER 7Y OR GREATE R [facility] Aug 24, 2008 10:10 AM FORMER TOBACCO USE >1Y <7Y [facility] Advance Directives: All historical and current Section Date Range: From patient's date of to the date document was created. This section includes ALL of a patient's completed or amended [place] Advance and Rescinded Directives. The entries below indicate that a directive exists for the patient, but an actual copy is not included with this document. The data comes from all [facility]. Date Advance Directives Provider Source March 08, 2023 ADVANCE DIRECTIVE ODILIA CHRISTIANSON [facility] May 02, 2014 ADVANCE DIRECTIVE DISCUSSION QUEENIE SAENZ [facility] May 24, 2013 CLINICAL WARNING GALINDO STUART [facility] Sep 21, 2011 ADVANCE DIRECTIVE JORDAN ZHANG [facility] Radiology Reports: +/- 30 days of [...] the Encounter. The data comes from all [place] treatment facilities. Date/Time Radiology Report Provider Source Jan 10, 2025 07:58 AM SHOULDER RIGHT 2-3 VIEWS: KEENA ROSA [id number] -[id number] M Exm Date: JAN 10, 2025@07:58 Req Phys: ARMINDA KIMHECTOR Pauline Colleen Loc: OR-PACU/01-10-2025@15:42 Img Loc: MAIN X-RAY Service: [place] [address] (Case [id number] COMPLETE) SHOULDER RIGHT 2-3 VIEWS (RAD Detailed) CPT:11641 Proc Modifiers : PORTABLE EXAM, OPERATING ROOM EXAM Reason for Study: right reverse TSA Clinical History: OR 6 shoulder rotator cuff arthropathy My pager number on record is: . I confirm that the pager number/cell phone number above is correct for reporting critical results. My correct contact # for critial results is:Valerio KIM [phone] Trainees only: Enter your staff provider's info here: LAST CREATININE 1.0 (12/18/24) Report Status: Verified Date Reported: JAN 10, 2025 Date Verified: JAN 10, 2025 Director Of Personnel E-Sig:/ES/MIRANDA BROOKE MD Report: EXAMINATION: SHOULDER RIGHT 2-3 VIEWS 01/10/2025 7:58 AM INDICATION: right reverse TSA Impression: Right reverse TSA. Components appear well seated. Report Sign Date/Time: 01/10/2025 3:39 PM Primary Interpreting Staff: MIRANDA BROOKE MD, RADIOLOGIST (Director Of Personnel) /RTS MIRANDA BROOKE [facility]
--- OUTSIDE RECORDS SUMMARY | 2025-01-16 08:12 | XMS_ITS | Encounter Summary ---
Author Name [facility] Organization [facility] Address [address] [place] [address] Care Team Providers Care Fuel Pilot Engineer Name Role Phone ZENY MARTIN Primary [...] PART A Oct 18, 2013 PART A [id number] [phone] Mary ROSA PATIENT MEDICARE (WNR) MEDICARE (M) PART B Oct 18, 2013 PART B [id number] [phone] Mary ROSA EOMIRELAD PATIENT MEDICARE (WNR) MEDICARE (M) PART A Oct 18, 2013 PART A [id number] [phone] Mary ROSA PATIENT Selected Encounter This section includes the information on record at [place] for the Encounter. Date/Time Encounter Type Encounter Description Reason Provider Source Jan 11, 2025 11:00 AM CASE MANAGEMENT GENERAL SURGERY ICD-10-CM Z65.9 Problem related to unspecified psychosocial circumstances RADHA HANEY IHBandar Encounter Template Text not used by [place] Assessments - Encounter Diagnoses This section includes the primary and secondary diagnoses documented for the Encounter. Date/Time Primary/Secondary Diagnosis Diagnosis Name Provider Source Jan 11, 2025 01:21 PM PRIMARY Problem related to unspecified psychosocial circumstances RADHA HANEY [facility] Plan of Treatment: Future Appointments (+ 6 months) and Future Tests (+/- 45 days) The Plan of Treatment section includes future care activities for the patient from all [facility] This section includes future appointments and future orders which are active, pending or scheduled. Future Appointments This section includes appointments that were scheduled to occur 6 months from the date of the Encounter, up to a maximum of 20 appointments. The data comes from all [facility]. Appointment Date/Time Appointment Type Appointme nt Facility Name Jan 24, 2025 01:00 PM AMBULATORY - SURGERY [facility] Jan 25, 2025 10:00 AM AMBULATORY - MEDICINE [facility] Jan 25, 2025 11:00 AM AMBULATORY - REHAB MEDICIN [facility] Feb 01, 2025 10:00 AM AMBULATORY - MEDICINE [facility] Feb 01, 2025 11:00 AM AMBULATORY - MEDICINE [facility] Feb 08, 2025 10:00 AM AMBULATORY - MEDICINE [facility] February 22, 2025 10:00 AM AMBULATORY - MEDICINE [facility] February 23, 2025 11:00 AM AMBULATORY - NONE [facility] February 23, 2025 11:30 AM AMBULATORY - SURGERY [facility] March 08, 2025 10:00 AM AMBULATORY - MEDICINE [facility] Apr 09, 2025 01:00 PM AMBULATORY - SURGERY [facility] Active, Pending, and Scheduled Orders This section includes a listing of several types of active, pending, and scheduled orders, including clinic medications orders, diagnostic test orders, procedure orders and consult orders; where the start date of the order is 45 days before the date of the Encounter or 45 days after the date of theEncounter. The data comes from all [facility]. Test Date/Time Test Type Test Details Facility Name Dec 11, 2024 11:04 AM Consult Order PT PHYSICA L THERAPY OUTPT ORTHO SURGERY Cons [facility] Jan 10, 2025 12:00 AM Laboratory - Blood Bank Order TYPE & SCREEN - LAB BLOOD WC [facility] Jan 12, 2025 08:18 AM Consult Order [facility] Cons [facility] Jan 22, 2025 [...] and Hematology Lab Results on record with [place] for the patient. Radiology Reports and Pathology [...] Jan 11, 2025 12:51 PM Reporting Lab: [facility] [phone] Performing Lab: [facility] [address] FINGERSTICK GLUCOSE 246 mg/dL H 70-100 Jan 11, 2025 07:[address] [facility] CBC Specimen Type: BLOOD No comment entered. Ordering Provider: ANDREA WOLF Report Released Date/Time: Jan 10, 2025 02:40 PM Reporting Lab: [facility] [phone] Performing Lab: [facility] [phone] WBC 9.7 4.0-11.0 RBC 4.50 L 4.60-6.20 [...] Jan 10, 2025 02:40 PM Reporting Lab: [facility] [phone] Performing Lab: [facility] [address] CREATININE 1.0 mg/dL 0.7-1.2 UREA NITROGEN 21 [...] Jan 11, 2025 07:41 AM Reporting Lab: [facility] [phone] Performing Lab: [facility] [address] FINGERSTICK GLUCOSE 220 mg/dL H 70-100 Jan 10, 2025 08:[address] [facility] FINGERSTICK GLUCOSE Specimen Type: BLOOD Comment: Save Result Nurse Notified Ordering Provider: Lilli CHRISTENSEN Report Released Date/Time: Jan 10, 2025 08:36 PM Reporting Lab: [facility] [phone] Performing Lab: [facility] [address] FINGERSTICK GLUCOSE 239 mg/dL H 70-100 Jan 10, 2025 04:[address] [facility] FINGERSTICK GLUCOSE Specimen Type: BLOOD Comment: Save Result Nurse Notified Ordering Provider: Lilli CHRISTENSEN Report Released Date/Time: Jan 10, 2025 05:34 PM Reporting Lab: [facility] [phone] Performing Lab: [facility] [address] FINGERSTICK GLUCOSE 190 mg/dL H 70-100 Jan 10, 2025 02:[address] [facility] FINGERSTICK GLUCOSE Specimen Type: BLOOD Comment: Save Result Nurse Notified Ordering Provider: BENIGNO KIM A Report Released Date/Time: Jan 10, 2025 03:01 PM Reporting Lab: [facility] [phone] Performing Lab: [facility] [address] FINGERSTICK GLUCOSE 183 mg/dL H 70-100 Jan 10, 2025 08:[address] [facility] PROTHROMBIN TIME/INR Specimen Type: PLASMA Comment: ~Draw on admission. Call IV team to draw on admission. Ordering Provider: BENIGNO KIM A Report Released Date/Time: Jan 10, 2025 08:01 AM Reporting Lab: [facility] [address] Performing Lab: [facility] [address] .INR 0.9 0.8-1.1 .PT 10.9 s 9.4-12.5 Jan 10, 2025 08:[address] [facility] ACT PART THROMBO TIME Specimen Type: PLASMA Comment: ~Draw on admission. Call IV team to draw on admission. Ordering Provider: BENIGNO KIM A Report Released Date/Time: Jan 10, 2025 08:01 AM Reporting Lab: [facility] [address] Performing Lab: [facility] [address] APTT 31.4 s 25.1-36.5 Jan 10, 2025 08:[address] [facility] CBC Specimen Type: BLOOD No comment entered. Ordering Provider: BENIGNO KIM A Report Released Date/Time: Jan 10, 2025 08:01 AM Reporting Lab: [facility] [phone] Performing Lab: [facility] [address] WBC 6.6 4.0-11.0 RBC 5.00 4.60-6.20 HGB [...] Jan 10, 2025 08:01 AM Reporting Lab: [facility] [address] Performing Lab: [facility] [address] CREATININE 0.9 mg/dL 0.7-1.2 UREA NITROGEN 19 [...] Jan 10, 2025 10:31 AM Reporting Lab: [facility] [address] Performing Lab: [facility] [address] FINGERSTICK GLUCOSE 155 mg/dL H 70-100 Dec 18, 2024 12:[address] [facility] ALBUMIN Specimen Type: PLASMA No comment entered. Ordering Provider: BENIGNO KIM A Report Released Date/Time: Sep 27, 2024 10:57 AM Reporting Lab: [facility] [phone] Performing Lab: [facility] [address] ALBUMIN 4.4 g/dL 3.5-5.0 Dec 18, 2024 [...] Sep 27, 2024 10:57 AM Reporting Lab: [facility] [address] Performing Lab: [facility] [address] HEMOGLOBIN A1C 7.1 H 4.0-6.0 Dec 18, 2024 12:[address] [facility] PROTHROMBIN TIME/INR Specimen Type: PLASMA No comment entered. Ordering Provider: BENIGNO KIM A Report Released Date/Time: Sep 27, 2024 10:57 AM Reporting Lab: [facility] [address] Performing Lab: [facility] [address] .INR 0.9 0.8-1.1 .PT 10.3 s 9.4-12.5 Dec 18, 2024 12:[address] [facility] BASIC METABOLIC PANEL+MG Specimen Type: PLASMA No comment entered. Ordering Provider: BENIGNO KIM A Report Released Date/Time: Sep 27, 2024 10:57 AM Reporting Lab: [facility] [address] Performing Lab: [facility] [address] CREATININE 1.0 mg/dL 0.7-1.2 UREA NITROGEN 19 [...] Sep 27, 2024 10:57 AM Reporting Lab: [facility] [address] Performing Lab: [facility] [address] WBC 9.5 4.0-11.0 RBC 5.05 4.60-6.20 HGB [...] Source Jan 11, 2025 09:30 AM 5 [facility] Jan 11, 2025 08:35 AM 8 [facility] Jan 11, 2025 08:31 AM 97.5 50 122/69 16 100 8 [facility] Jan 11, 2025 04:27 AM 6 [facility] Jan 11, 2025 12:28 AM 9 [facility] Social History: Smoking Status (Most current) and Tobacco Use (All prior to encounter date) This section includes the most current, and the historical, smoking and tobacco- related health factors from the [facility] where the Encounter took place. Current Smoking Status This section includes the most current smoking, or tobacco-related health factor, from the [place] facility where the Encounter took place. Date/Time Current Smoking Status Comment Serina ity Nov 19, 2023 08:00 AM VA-TOBACCO FORMER USER [facility] Tobacco Use History This section includes a history of the smoking, or tobacco-related health factors, that were collected on or before the date of the Encounter. The data comes from the [place] facility where the Encounter took place. Date/Time [...] ALL of a patient's completed or amended [place] Advance and Rescinded Directives. The entries below indicate that a directive exists for the patient, but an actual copy is not included with this document. The data comes from all [place] facilities. Date Advance Directives Provider Source March [...] the Encounter. The data comes from all [place] treatment facilities. Date/Time Radiology Report Provider Source Jan 10, 2025 07:58 AM SHOULDER RIGHT 2-3 VIEWS: KEENA ROSA [id number] -[id number] M Exm Date: JAN 10, 2025@07:58 Req Phys: SHELLI KIM Pat Loc: OR-PACU/01-10-2025@15:42 Img Loc: MAIN X-RAY Service: [place] [address] (Case [id number] COMPLETE) SHOULDER RIGHT 2-3 VIEWS (RAD Detailed) CPT:71214 Proc Modifiers : PORTABLE EXAM, OPERATING ROOM EXAM Reason for Study: right reverse TSA Clinical History: OR 6 shoulder rotator cuff arthropathy My pager number on record is: . I confirm that the pager number/cell phone number above is correct for reporting critical results. My correct contact # for critial results is:Valerio KIM [phone] Trainees only: Enter your staff provider's info here: LAST CREATININE 1.0 (12/18/24) Report Status: Verified Date Reported: JAN 10, 2025 Date Verified: JAN 10, 2025 Ski Guide E-Sig:/ES/MIRANDA BROOKE MD Report: EXAMINATION: SHOULDER RIGHT 2-3 VIEWS 01/10/2025 7:58 AM INDICATION: right reverse TSA Impression: Right reverse TSA. Components appear well seated. Report Sign Date/Time: 01/10/2025 3:39 PM Primary Interpreting Staff: MIRANDA BROOKE MD, RADIOLOGIST (Ski Guide) /MIRANDA PAULSON [facility] Encounter Notes: All associated encounter notes This section contains the clinical notes associated to the Encounter. Date/Time Encounter Note(s) Provider Source Jan 11, 2025 01:16 PM SOCIAL WORK CONSULT: LOCAL TITLE: SOCIAL WORK CONSULT STANDARD TITLE: SOCIAL WORK CONSULT DATE OF NOTE: JAN 11, 2025@13:16 ENTRY DATE: JAN 11, 2025@13:17:03 AUTHOR: MYAH HANEYIGNER: URGENCY: STATUS: COMPLETED CONSULT: Reason For Request: Please assess and make recommendations for social needs/post-op support ACTION: In response to this consult, promotion writer reviewed tevin's medical chart, engaged in interdisciplinary team discussion, and met with tevin at bedside. Irrigation Supervisor is familiar with tevin from pre-operative phone contact. Tevin is a 69M who is s/p a R reverse total shoulder arthroplasty with Dr. Kim on 01/10. At time of SW visit, PT and OT consults were pending however promotion writer was informed that tevin was being recommended to d/c to home with resumption of HHC services and addition of HHC OT. *PT d/c recommendations now available per chart (01/11/25): home c/ re- eval of HCS interventions & time allowed (OP PT per rTSA protocol c/ [facility] EVAL Consult Appt. on 01/25/25 @ 11:00) vet mentions [employer] ride to appt. At bedside visit, tevin informs promotion writer tevin is able to d/c to home today and is calling his son for a d/c ride. Tevin informs his son Sean from [place] will be staying with tevin until 01/21/25 to provide support. Tevin appears in agreement with d/c plan and does not identify safety concerns however expresses that real test will be how he does at home. Tevin reports being able to manage BiPAP after working with OT today. [place] states grab bars were put in bathroom on home on Wednesday when was leaving for s/p. [place] reports a ramp is being installed to the front door of tevin's home, but this will not be done for ~3 weeks. Tevin does not believe ramp installation is a barrier to d/c. Tevin has HHC services at baseline and reports does not need to manage leg brace independently, as [facility] assists with this when showers. [place] lives with his sister however his sister is unable to provide assistance to due to own health condition. Cleveland has another sister that lives ~ 25 miles from , who can provide occasional support. After 's son leaves, indicates plan to use [employer] delivery for groceries for himself and sister until able to drive again. plans to utilize [facility] for transportation to appointments. is administratively eligible for SMT based on 80% SC; promotion writer requested provider enroll in SMT for 6 months as clinically appropriate. [place] already has beneficiary travel phone number saved in cell phone, as has used SMT in the past. did not have other questions or concerns for SW and was appreciative of visit. No barriers to d/c were identified. Provider and nursing placed needed consults to resume 's previous [facility] services and order new home OT. Irrigation Supervisor alerted [facility] RN. /kyle/ KAM PRUETT ASSISTANT COMMUNITY DIRECTOR Signed: 01/11/2025 13:[address] [facility]
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
--- OUTSIDE RECORDS SUMMARY | 2025-01-16 08:13 | XMS_ITS | Encounter Summary ---
Author Name [facility] [place] [facility] Address [address] [place] [address] Care Team Providers Care [employer] Driver Name Role Phone ZENY MARTIN Primary Care [...] PART A Oct 18, 2013 PART A [id number] [phone] Mary ROSA PATIENT MEDICARE (WNR) MEDICARE (M) PART B Oct 18, 2013 PART B [id number] Mary ROSA EORODNEY PATIENT MEDICARE (WNR) MEDICARE (M) PART A Oct 18, 2013 PART A [id number] Mary ROSA PATIENT Selected Encounter This section includes the information on record at [place] for the Encounter. Date/Time Encounter Type Encounter Description Reason Pro vider Source Jan 10, 2025 04:15 PM Inpatient Visit ADMIN PAT ACTIVTIES (MASNONCT) SYSTEM,[facility] Encounter Template Text not used by [place] Plan of Treatment: Future Appointments (+ 6 months) and Future Tests (+/- 45 days) The Plan of Treatment section includes future care activities for the [facility] [place] [facility] This section includes future appointments [...] 24, 2025 01:00 PM AMBULATORY - SURGERY [facility] Jan 25, 2025 10:00 AM AMBULATORY - MEDICINE [facility] Jan 25, 2025 11:00 AM AMBULATORY - REHAB MEDICIN E [facility] Feb 01, 2025 10:00 AM AMBULATORY - MEDICINE [facility] Feb 01, 2025 11:00 AM AMBULATORY - MEDICINE [facility] Feb 08, 2025 10:00 AM AMBULATORY - MEDICINE [facility] February 22, 2025 10:00 AM AMBULATORY - MEDICINE [facility] February 23, 2025 11:00 AM AMBULATORY - NONE [facility] February 23, 2025 11:30 AM AMBULATORY - SURGERY [facility] March 08, 2025 10:00 AM AMBULATORY - MEDICINE [facility] Apr 09, 2025 01:00 PM AMBULATORY - SURGERY [facility] Active, Pending, and Scheduled Orders This [...] PHYSICA L THERAPY OUTPT ORTHO SURGERY [facility] Jan 10, 2025 12:00 AM Laboratory - Blood Bank Order TYPE & SCREEN - LAB BLOOD WC [facility] Jan 12, 2025 08:18 AM Consult Order [facility] Jan 22, 2025 12:00 AM Laboratory - Chemi stry Order HEMOGLOBIN A1C BLOOD SP ONCE [facility] Jan 22, 2025 12:00 AM Laboratory - Chemi stry Order BASIC METABOLIC PANEL+MG PLASMA SP [facility] February 23, 2025 11:00 AM Imaging - General Radiology Order SHOULDER RIGHT 2-3 VIEWS RIGHT [facility] Lab Results: +/- 30 days [...] Comment Jan 11, 2025 12:21 PM [facility] FINGERSTICK GLUCOSE Specimen Type: BLOOD Comment: Save Result Nurse Notified Ordering Provider: ANDREA WOLF Report Released Date/Time: Jan 11, 2025 12:51 PM Reporting Lab: [facility] [phone] Performing Lab: [facility] [phone] FINGERSTICK GLUCOSE 246 mg/dL H 70-100 Jan 11, 2025 07:37 AM [facility] CBC Specimen Type: BLOOD No comment entered. Ordering Provider: ANDREA WOLF Report Released Date/Time: Jan 10, 2025 02:40 PM Reporting Lab: [facility] [phone] Performing Lab: [facility] [phone] WBC 9.7 4.0-11.0 RBC 4.50 L 4.60-6.20 HGB 12.9 g/dL L 13.5-17.9 HCT 42.3 41.0-54.0 MCV 94.0 fL 80.0-100.0 MCH 28.7 pg 27.0-33.0 MCHC 30.5 g/dL L 32.0-37.5 PLT 174 150-400 MPV 11.5 fL 9.1-13.0 RDW 13.3 11.5-14.5 Jan 11, 2025 07:37 AM [facility] BASIC METABOLIC PANEL+MG Specimen Type: PLASMA No comment entered. Ordering Provider: ANDREA WOLF Report Released Date/Time: Jan 10, 2025 02:40 PM Reporting Lab: [facility] [phone] Performing Lab: [facility] [phone] CREATININE 1.0 mg/dL 0.7-1.2 UREA NITROGEN 21 mg/dL 8-26 GLUCOSE 203 mg/dL H 70-100 SODIUM 136 mmol/L 136-145 POTASSIUM 4.1 mmol/L 3.5-5.1 CHLORIDE 102 mmol/L 98-107 CO2 23 mmol/L 22-29 CALCIUM 8.8 mg/dL 8.4-10.2 MAGNESIUM 2.0 mg/dL 1.6-2.6 ANION GAP 11 mmol/L 5-15 .CREAT EGFR(CKD-EPI) 80 >60 Jan 11, 2025 06:10 AM [facility] FINGERSTICK GLUCOSE Specimen Type: BLOOD Comment: Save Result Nurse Notified Ordering Provider: Lilli CHRISTENSEN Report Released Date/Time: Jan 11, 2025 07:41 AM Reporting Lab: [facility] [phone] Performing Lab: [facility] [phone] FINGERSTICK GLUCOSE 220 mg/dL H 70-100 Jan 10, 2025 08:11 PM [facility] FINGERSTICK GLUCOSE Specimen Type: BLOOD Comment: Save Result Nurse Notified Ordering Provider: Lilli CHRISTENSEN Report Released Date/Time: Jan 10, 2025 08:36 PM Reporting Lab: [facility] [phone] Performing Lab: [facility] [address] FINGERSTICK GLUCOSE 239 mg/dL H 70-100 Jan 10, 2025 04:30 PM [facility] FINGERSTICK GLUCOSE Specimen Type: BLOOD Comment: Save Result Nurse Notified Ordering Provider: Lilli CHRISTENSEN Report Released Date/Time: Jan 10, 2025 05:34 PM Reporting Lab: [facility] [phone] Performing Lab: [facility] [address] FINGERSTICK GLUCOSE 190 mg/dL H 70-100 Jan 10, 2025 02:40 PM [facility] FINGERSTICK GLUCOSE Specimen Type: BLOOD Comment: Save Result Nurse Notified Ordering Provider: BENIGNO KIM Report Released Date/Time: Jan 10, 2025 03:01 PM Reporting Lab: [facility] [phone] Performing Lab: [facility] [phone] FINGERSTICK GLUCOSE 183 mg/dL H 70-100 Jan 10, 2025 08:35 AM [facility] PROTHROMBIN TIME/INR Specimen Type: PLASMA Comment: ~Draw on admission. Call IV team to draw on admission. Ordering Provider: BENIGNO KIM A Report Released Date/Time: Jan 10, 2025 08:01 AM Reporting Lab: [facility] [phone] Performing Lab: [facility] [phone] .INR 0.9 0.8-1.1 .PT 10.9 s 9.4-12.5 Jan 10, 2025 08:35 AM [facility] ACT PART THROMBO TIME Specimen Type: PLASMA Comment: ~Draw on admission. Call IV team to draw on admission. Ordering Provider: BENIGNO KIM A Report Released Date/Time: Jan 10, 2025 08:01 AM Reporting Lab: [facility] [phone] Performing Lab: [facility] [phone] APTT 31.4 s 25.1-36.5 Jan 10, 2025 08:35 AM [facility] CBC Specimen Type: BLOOD No comment entered. Ordering Provider: BENIGNO KIM A Report Released Date/Time: Jan 10, 2025 08:01 AM Reporting Lab: [facility] [phone] Performing Lab: [facility] [phone] WBC 6.6 4.0-11.0 RBC 5.00 4.60-6.20 HGB 14.5 g/dL 13.5-17.9 HCT 46.1 41.0-54.0 MCV 92.2 fL 80.0-100.0 MCH 29.0 pg 27.0-33.0 MCHC 31.5 g/dL L 32.0-37.5 PLT 172 150-400 MPV 10.9 fL 9.1-13.0 RDW 13.7 11.5-14.5 Jan 10, 2025 08:35 AM [facility] BASIC METABOLIC PANEL+MG Specimen Type: PLASMA No comment entered. Ordering Provider: BENIGNO KIM A Report Released Date/Time: Jan 10, 2025 08:01 AM Reporting Lab: [facility] [phone] Performing Lab: [facility] [phone] CREATININE 0.9 mg/dL 0.7-1.2 UREA NITROGEN 19 mg/dL 8-26 GLUCOSE 151 mg/dL H 70-100 SODIUM 138 mmol/L 136-145 POTASSIUM 3.9 mmol/L 3.5-5.1 CHLORIDE 106 mmol/L 98-107 CO2 23 mmol/L 22-29 CALCIUM 9.3 mg/dL 8.4-10.2 MAGNESIUM 2.0 mg/dL 1.6-2.6 ANION GAP 9 mmol/L 5-15 .CREAT EGFR(CKD-EPI) >90 >60 Jan 10, 2025 08:35 AM [facility] FINGERSTICK GLUCOSE Specimen Type: BLOOD Comment: Save Result Ordering Provider: BENIGNO KIM Report Released Date/Time: Jan 10, 2025 10:31 AM Reporting Lab: [facility] [phone] Performing Lab: [facility] [address] FINGERSTICK GLUCOSE 155 mg/dL H 70-100 Dec 18, 2024 12:16 PM [facility] ALBUMIN Specimen Type: PLASMA No comment entered. Ordering Provider: BENIGNO KIM Report Released Date/Time: Sep 27, 2024 10:57 AM Reporting Lab: [facility] [phone] Performing Lab: [facility] [phone] ALBUMIN 4.4 g/dL 3.5-5.0 Dec 18, 2024 12:16 PM [facility] HEMOGLOBIN A1C Specimen Type: BLOOD [...] AM Reporting Lab: [facility] [phone] Performing Lab: [facility] [phone] HEMOGLOBIN A1C 7.1 H 4.0-6.0 Dec 18, 2024 12:16 PM [facility] PROTHROMBIN TIME/INR Specimen Type: PLASMA No comment entered. Ordering Provider: BENIGNO KIM A Report Released Date/Time: Sep 27, 2024 10:57 AM Reporting Lab: [facility] [phone] Performing Lab: [facility] [address] .INR 0.9 0.8-1.1 .PT 10.3 s 9.4-12.5 Dec 18, 2024 12:16 PM [facility] BASIC METABOLIC PANEL+MG Specimen Type: PLASMA No comment entered. Ordering Provider: BENIGNO KIM A Report Released Date/Time: Sep 27, 2024 10:57 AM Reporting Lab: [facility] [phone] Performing Lab: [facility] [phone] CREATININE 1.0 mg/dL 0.7-1.2 UREA NITROGEN 19 mg/dL 8-26 GLUCOSE 118 mg/dL H 70-100 SODIUM 139 mmol/L 136-145 POTASSIUM 4.1 mmol/L 3.5-5.1 CHLORIDE 104 mmol/L 98-107 CO2 25 mmol/L 22-29 CALCIUM 9.6 mg/dL 8.4-10.2 MAGNESIUM 2.1 mg/dL 1.6-2.6 ANION GAP 10 mmol/L 5-15 .CREAT EGFR(CKD-EPI) 80 >60 Dec 18, 2024 12:16 PM [facility] CBC & DIFF Specimen Type: BLOOD Comment: Automated Differential Performed Ordering Provider: BENIGNO KIM A Report Released Date/Time: Sep 27, 2024 10:57 AM Reporting Lab: [facility] [phone] Performing Lab: [facility] [address] WBC 9.5 4.0-11.0 RBC 5.05 4.60-6.20 HGB [...] Source Jan 10, 2025 08:57 PM 6 [facility] Jan 10, 2025 07:57 PM 7 [facility] Jan 10, 2025 05:58 PM 187.8 27 [facility] Jan 10, 2025 09:21 AM 186 27 [facility] Jan 10, 2025 09:20 AM 98 61 128/73 16 98 7 [facility] Social History: Smoking Status (Most current) [...] 2023 08:00 AM VA-TOBACCO FORMER USER [facility] Tobacco Use History This section includes a history of the smoking, or tobacco-related health factors, that were collected on or before the date of the Encounter. The data comes from the [place] facility where the Encounter took place. Date/Time Smoking Status/Tobacco Use Comment F mahamed Nov 19, 2023 08:00 AM VA-TOBACCO QUIT 15 YRS OR MORE [facility] Jan 28, 2023 09:45 AM VA-TOBACCO FORMER USER [facility] Jan 28, 2023 09:45 AM VA-TOBACCO QUIT 15 YRS OR MORE [facility] Oct 30, 2021 03:00 PM VA-TOBACCO FORMER USER [facility] Oct 30, 2021 03:00 PM VA-TOBACCO QUIT 5 TO < 15 YRS [facility] Aug 17, 2019 11:38 AM VA-TOBACCO FORMER USER [facility] Aug 17, 2019 11:38 AM VA-TOBACCO QUIT 5 TO < 15 YRS [facility] Jan 06, 2018 02:39 PM FORMER TOBACCO USER 7Y OR GREATE R [facility] Jan 28, 2017 12:47 PM FORMER TOBACCO USER 7Y OR GREATE R [facility] Jan 21, 2016 03:04 PM FORMER TOBACCO USER 7Y OR GREATE R [facility] Apr 02, 2015 02:05 PM FORMER TOBACCO USER 7Y OR GREATE R [facility] March 01, 2014 09:10 AM FORMER TOBACCO USER 7Y OR GREATE R [facility] Sep 18, 2013 09:13 AM CDM COPD TOBACCO NON-USER [facility] May 28, 2013 11:05 AM LIFETIME NON-TOBACCO USER [facility] May 25, 2013 12:08 PM FORMER TOBACCO USER 7Y OR GREATE R [facility] Jun 18, 2009 09:48 AM FORMER TOBACCO USER 7Y OR GREATE R [facility] Aug 24, 2008 10:10 AM FORMER TOBACCO USE >1Y <7Y [facility] Advance Directives: All historical and [...] March 08, 2023 ADVANCE DIRECTIVE ODILIA CHRISTIANSON [facility] May 02, 2014 ADVANCE DIRECTIVE DISCUSSION QUEENIE SAENZ [facility] May 24, 2013 CLINICAL WARNING GALINDO STUART [facility] Sep 21, 2011 ADVANCE DIRECTIVE JORDAN ZHANG [facility] Radiology Reports: +/- 30 days of the [...] AM SHOULDER RIGHT 2-3 VIEWS: KEENA ROSA [id number] -[id number] M Exm Date: JAN 10, 2025@07:58 Req Phys: ARMINDA KIMHECTOR Macias Loc: OR-PACU/01-10-2025@15:42 Img Loc: MAIN X-RAY Service: [place] [address] (Case [id number] COMPLETE) SHOULDER RIGHT 2-3 VIEWS (RAD Detailed) CPT:15935 Proc Modifiers : PORTABLE EXAM, OPERATING ROOM EXAM Reason for Study: right reverse TSA Clinical History: OR 6 shoulder rotator cuff arthropathy My pager number on record is: . I confirm that the pager number/cell phone number above is correct for reporting critical results. My correct contact # for critial results is:Valerio KIM [phone] Trainees only: Enter your staff provider's info here: LAST CREATININE 1.0 (12/18/24) Report Status: Verified Date Reported: JAN 10, 2025 Date Verified: JAN 10, 2025 Florist Designer E-Sig:/ES/MIRANDA BROOKE MD Report: EXAMINATION: SHOULDER RIGHT 2-3 VIEWS 01/10/2025 7:58 AM INDICATION: right reverse TSA Impression: Right reverse TSA. Components appear well seated. Report Sign Date/Time: 01/10/2025 3:39 PM Primary Interpreting Staff: MIRANDA BROOKE MD, RADIOLOGIST (Florist Designer) /RTS MIRANDA BROOKE [facility] Encounter Notes: All associated encounter notes This section contains the clinical notes associated to the Encounter. Date/Time Encounter Note(s) Provider Source Jan 10, 2025 04:15 PM CRITICAL CARE UNIT NOTE: LOCAL TITLE: ICCA INPATIENT FLOWSHEET STANDARD TITLE: CRITICAL CARE UNIT NOTE DATE OF NOTE: JAN 10, 2025@16:15 ENTRY DATE: JAN 11, 2025@14:31:38 AUTHOR: HERB,MARIA VICTORIA EXP COSIGNER: URGENCY: STATUS: COMPLETED This is a place enrique only. Please see [facility] to view document. /es/ [facility] SYSTEM ICU DOCUMENT IMPORT Signed: 01/11/2025 14:31 SYSTEM,[employer] Jan 10, 2025 04:15 PM CRITICAL CARE UNIT NOTE: LOCAL TITLE: [facility]A RESPIRATORY THERAPY FLOWSHEET STANDARD TITLE: CRITICAL CARE UNIT NOTE DATE OF NOTE: JAN 10, 2025@16:15 ENTRY DATE: JAN 11, 2025@15:03:20 AUTHOR: SYSTEM,[employer] EXP COSIGNER: URGENCY: STATUS: COMPLETED This is a place enrique only. Please see [employer] to view document. /es/ [employer] SYSTEM ICU DOCUMENT IMPORT Signed: 01/11/2025 15:03 SYSTEM,[facility]
--- OUTSIDE RECORDS SUMMARY | 2025-01-16 08:13 | XMS_ITS | Encounter Summary ---
Author Name [facility] [place] Organization [facility] [place] [facility] [place] Address [address] [place] [address] Care Team Providers Care Connection Worker Name Role Phone ZENY MARTIN Primary [...] PART A Oct 18, 2013 PART A [id number] [phone] Mary ROSA PATIENT MEDICARE (WNR) MEDICARE (M) PART B Oct 18, 2013 PART B [id number] [phone] Mary ROSA EONARD PATIENT MEDICARE (WNR) MEDICARE (M) PART A Oct 18, 2013 PART A [id number] Mary ROSA PATIENT Selected Encounter This section includes the information on record at [place] for the Encounter. Date/Time Encounter Type Encounter Description Reason Provider Source Dec 18, 2024 01:15 PM ELECTROCARDIOGRAM REPORT EKG ICD-10-CM Z13.6 Encounter for screening for cardiovascular disorders EDWIN BELLE MA IHE Encounter Template Text not used by [place] Assessments - Encounter Diagnoses This section includes the primary and secondary diagnoses documented for the Encounter. Date/Time Primary/Secondary Diagnosis Diagnosis Name Provider Source Dec 18, 2024 03:42 PM PRIMARY Encounter for screening for cardiovascular disorders LINDA BIRCH [facility] Plan of Treatment: Future Appointments (+ 6 months) and Future Tests (+/- 45 days) The Plan of Treatment section includes future care activities for the patient from [facility] [place] [facility] This section includes future appointments and future orders which are active, pending or scheduled. Future Appointments This section includes appointments that were scheduled to occur 6 months from the date of the Encounter, up to a maximum of 20 appointments. The data comes from all [place] treatment [facility]. Appointment Date/Time Appointment Type Appointme nt Facility Name Dec 19, 2024 11:00 AM AMBULATORY - REHAB MEDICIN [facility] Dec 27, 2024 07:00 AM AMBULATORY - NONE [facility] Dec 28, 2024 10:00 AM AMBULATORY - MEDICINE [facility] Dec 28, 2024 11:00 AM AMBULATORY - REHAB [facility] Jan 01, 2025 01:30 [facility] Jan 24, 2025 01:00 PM AMBULATORY - SURGERY [facility] Jan 25, 2025 10:00 AM [facility] Jan 25, 2025 11:00 AM AMBULATORY - REHAB [facility] Feb 01, 2025 10:00 AM [facility] Feb 01, 2025 11:00 AM [facility] Feb 08, 2025 10:00 AM [facility] February 22[facility] 2025 10:00 AM [facility] February 23, 2025 11:00 [facility] February 23, 2025 11:30 AM AMBULATORY - SURGERY [facility] March 08[facility] 2025 10:00 AM [facility] Apr 09, 2025 01:00 PM AMBULATORY - SURGERY [facility] Active, Pending, and Scheduled Orders This section includes a listing of several types of active, pending, and scheduled orders, including clinic medications orders, diagnostic test orders, procedure orders and consult orders; where the start date of the order is 45 days before the date of the Encounter or 45 days after the date of theEncounter. The data comes from all [place] treatment facilities. Test Date/Time Test Type Test Details Facility Name Dec 11, 2024 11:04 AM Consult Order PT PHYSICA L THERAPY OUTPT ORTHO SURGERY Cons [facility] Jan 10, 2025 12:00 AM Laboratory - Blood Bank Order TYPE & SCREEN - LAB BLOOD WC [facility] Jan 12, 2025 08:18 AM Consult Order [facility] Jan 22, 2025 12:00 AM Laboratory - Chemi stry Order HEMOGLOBIN A1C BLOOD SP ONCE [facility] Jan 22, 2025 12:00 AM Laboratory - Chemi stry Order BASIC METABOLIC PANEL+MG PLASMA SP [facility] Lab Results: +/- 30 days of the encounter This section includes the Chemistry and Hematology Lab Results on record with [place] for the patient. Radiology Reports and Pathology Reports are provided separately, in subsequent sections. Lab Results This section contains the Chemistry/Hematology Results that were resulted 30 days before or 30 daysafter the date of the Encounter. Date/Time Source Result Type Result - Unit Interpretation Reference Range Comment Jan 11, 2025 12:21 PM [facility] FINGERSTICK GLUCOSE Specimen Type: BLOOD Comment: Save Result Nurse Notified Ordering Provider: ANDREA WOLF Report Released Date/Time: Jan 11, 2025 12:51 PM Reporting Lab: [facility] [phone] Performing Lab: [facility] [phone] FINGERSTICK GLUCOSE 246 mg/dL H 70-100 Jan 11, 2025 07:37 AM [facility] CBC Specimen Type: BLOOD No comment entered. Ordering Provider: ANDREA WOLF Report Released Date/Time: Jan 10, 2025 02:40 PM Reporting Lab: [facility] [phone] Performing Lab: [facility] [phone] WBC 9.7 4.0-11.0 RBC 4.50 L 4.60-6.20 HGB 12.9 g/dL L 13.5-17.9 HCT 42.3 41.0-54.0 MCV 94.0 fL 80.0-100.0 MCH 28.7 pg 27.0-33.0 MCHC 30.5 g/dL L 32.0-37.5 PLT 174 150-400 MPV 11.5 fL 9.1-13.0 RDW 13.3 11.5-14.5 Jan 11, 2025 07:37 AM [facility] BASIC METABOLIC PANEL+MG Specimen Type: PLASMA No comment entered. Ordering Provider: ANDREA WOLF Report Released Date/Time: Jan 10, 2025 02:40 PM Reporting Lab: [facility] [phone] Performing Lab: [facility] [phone] CREATININE 1.0 mg/dL 0.7-1.2 UREA NITROGEN 21 mg/dL 8-26 GLUCOSE 203 mg/dL H 70-100 SODIUM 136 mmol/L 136-145 POTASSIUM 4.1 mmol/L 3.5-5.1 CHLORIDE 102 mmol/L 98-107 CO2 23 mmol/L 22-29 CALCIUM 8.8 mg/dL 8.4-10.2 MAGNESIUM 2.0 mg/dL 1.6-2.6 ANION GAP 11 mmol/L 5-15 .CREAT EGFR(CKD-EPI) 80 >60 Jan 11, 2025 06:10 AM [facility] FINGERSTICK GLUCOSE Specimen Type: BLOOD Comment: Save Result Nurse Notified Ordering Provider: Lilli CHRISTENSEN Report Released Date/Time: Jan 11, 2025 07:41 AM Reporting Lab: [facility] [phone] Performing Lab: [facility] [address] FINGERSTICK GLUCOSE 220 mg/dL H 70-100 Jan 10, 2025 08:11 PM [facility] FINGERSTICK GLUCOSE Specimen Type: BLOOD Comment: Save Result Nurse Notified Ordering Provider: Lilli CHRISTENSEN Report Released Date/Time: Jan 10, 2025 08:36 PM Reporting Lab: [facility] [phone] Performing Lab: [facility] [address] FINGERSTICK GLUCOSE 239 mg/dL H 70-100 Jan 10, 2025 04:30 PM [facility] FINGERSTICK GLUCOSE Specimen Type: BLOOD Comment: Save Result Nurse Notified Ordering Provider: Lilli CHRISTENSEN Report Released Date/Time: Jan 10, 2025 05:34 PM Reporting Lab: [facility] [phone] Performing Lab: [facility] [phone] FINGERSTICK GLUCOSE 190 mg/dL H 70-100 Jan 10, 2025 02:40 PM [facility] FINGERSTICK GLUCOSE Specimen Type: BLOOD Comment: Save Result Nurse Notified Ordering Provider: BENIGNO KIM Report Released Date/Time: Jan 10, 2025 03:01 PM Reporting Lab: [facility] [phone] Performing Lab: [facility] [address] FINGERSTICK GLUCOSE 183 mg/dL H 70-100 Jan 10, 2025 08:35 AM [facility] ACT PART THROMBO TIME Specimen Type: PLASMA Comment: ~Draw on admission. Call IV team to draw on admission. Ordering Provider: BENIGNO KIM Report Released Date/Time: Jan 10, 2025 08:01 AM Reporting Lab: [facility] [phone] Performing Lab: [facility] [phone] APTT 31.4 s 25.1-36.5 Jan 10, 2025 08:35 AM [facility] PROTHROMBIN TIME/INR Specimen Type: PLASMA Comment: ~Draw on admission. Call IV team to draw on admission. Ordering Provider: BENIGNO KIM Report Released Date/Time: Jan 10, 2025 08:01 AM Reporting Lab: [facility] [phone] Performing Lab: [facility] [address] .INR 0.9 0.8-1.1 .PT 10.9 s 9.4-12.5 Jan 10, 2025 08:35 AM [facility] FINGERSTICK GLUCOSE Specimen Type: BLOOD Comment: Save Result Ordering Provider: BENIGNO KIM A Report Released Date/Time: Jan 10, 2025 10:31 AM Reporting Lab: [facility] [phone] Performing Lab: [facility] [address] FINGERSTICK GLUCOSE 155 mg/dL H 70-100 Jan 10, 2025 08:35 AM [facility] CBC Specimen Type: BLOOD No comment entered. Ordering Provider: BENIGNO KIM Report Released Date/Time: Jan 10, 2025 08:01 AM Reporting Lab: [facility] [phone] Performing Lab: [facility] [phone] WBC 6.6 4.0-11.0 RBC 5.00 4.60-6.20 HGB 14.5 g/dL 13.5-17.9 HCT 46.1 41.0-54.0 MCV 92.2 fL 80.0-100.0 MCH 29.0 pg 27.0-33.0 MCHC 31.5 g/dL L 32.0-37.5 PLT 172 150-400 MPV 10.9 fL 9.1-13.0 RDW 13.7 11.5-14.5 Jan 10, 2025 08:35 AM [facility] BASIC METABOLIC PANEL+MG Specimen Type: PLASMA No comment entered. Ordering Provider: BENIGNO KIM Report Released Date/Time: Jan 10, 2025 08:01 AM Reporting Lab: [facility] [phone] Performing Lab: [facility] [phone] CREATININE 0.9 mg/dL 0.7-1.2 UREA NITROGEN 19 mg/dL 8-26 GLUCOSE 151 mg/dL H 70-100 SODIUM 138 mmol/L 136-145 POTASSIUM 3.9 mmol/L 3.5-5.1 CHLORIDE 106 mmol/L 98-107 CO2 23 mmol/L 22-29 CALCIUM 9.3 mg/dL 8.4-10.2 MAGNESIUM 2.0 mg/dL 1.6-2.6 ANION GAP 9 mmol/L 5-15 .CREAT EGFR(CKD-EPI) >90 >60 Dec 18, 2024 12:16 PM [facility] HEMOGLOBIN A1C Specimen Type: BLOOD [...] Sep 27, 2024 10:57 AM Reporting Lab: [facility] [phone] Performing Lab: [facility] [phone] HEMOGLOBIN A1C 7.1 H 4.0-6.0 Dec 18, 2024 12:16 PM [facility] ALBUMIN Specimen Type: PLASMA No comment entered. Ordering Provider: BENIGNO KIM Report Released Date/Time: Sep 27, 2024 10:57 AM Reporting Lab: [facility] [address] Performing Lab: [facility] [phone] ALBUMIN 4.4 g/dL 3.5-5.0 Dec 18, 2024 12:16 PM [facility] PROTHROMBIN TIME/INR Specimen Type: PLASMA No comment entered. Ordering Provider: BENIGNO KIM A Report Released Date/Time: Sep 27, 2024 10:57 AM Reporting Lab: [facility] [phone] Performing Lab: [facility] [address] .INR 0.9 0.8-1.1 .PT 10.3 s 9.4-12.5 Dec 18, 2024 12:16 PM [facility] BASIC METABOLIC PANEL+MG Specimen Type: PLASMA No comment entered. Ordering Provider: BENIGNO KIM A Report Released Date/Time: Sep 27, 2024 10:57 AM Reporting Lab: [facility] [phone] Performing Lab: [facility] [address] CREATININE 1.0 mg/dL 0.7-1.2 UREA NITROGEN 19 mg/dL 8-26 GLUCOSE 118 mg/dL H 70-100 SODIUM 139 mmol/L 136-145 POTASSIUM 4.1 mmol/L 3.5-5.1 CHLORIDE 104 mmol/L 98-107 CO2 25 mmol/L 22-29 CALCIUM 9.6 mg/dL 8.4-10.2 MAGNESIUM 2.1 mg/dL 1.6-2.6 ANION GAP 10 mmol/L 5-15 .CREAT EGFR(CKD-EPI) 80 >60 Dec 18, 2024 12:16 PM [facility] CBC & DIFF Specimen Type: BLOOD Comment: Automated Differential Performed Ordering Provider: BENIGNO KIM A Report Released Date/Time: Sep 27, 2024 10:57 AM Reporting Lab: [facility] [phone] Performing Lab: [facility] [address] WBC 9.5 4.0-11.0 RBC 5.05 4.60-6.20 HGB [...] 18, 2024 02:06 PM 72 111/72 95 [facility] Social History: Smoking Status (Most current) and Tobacco Use (All prior to encounter date) This section includes the most current, and the historical, smoking and tobacco- related health factors from the [place] facility where the Encounter took place. Current Smoking Status This section includes the most current smoking, or tobacco-related health factor, from the [place] facility where the Encounter took place. Date/Time Current Smoking Status Comment Serina ity Nov 19, 2023 08:00 AM [place]-TOBACCO FORMER USER [facility] Tobacco Use History This section includes a history of the smoking, or tobacco-related health factors, that were collected on or before the date of the Encounter. The data comes from the [place] facility where the Encounter took place. Date/Time Smoking Status/Tobacco Use Comment F acility Nov 19, 2023 08:00 AM [place]-TOBACCO QUIT 15 YRS OR MORE [facility] Jan 28, 2023 09:45 AM VA-TOBACCO FORMER USER [facility] Jan 28, 2023 09:45 AM VA-TOBACCO QUIT 15 YRS OR MORE [facility] Oct 30, 2021 03:00 PM VA-TOBACCO FORMER USER [facility] Oct 30, 2021 03:00 PM VA-TOBACCO QUIT 5 TO < 15 YRS [facility] Aug 17, 2019 11:38 AM VA-TOBACCO FORMER USER [facility] Aug 17, 2019 11:38 AM VA-TOBACCO QUIT 5 TO < 15 YRS [facility] Jan 06, 2018 02:39 PM FORMER TOBACCO USER 7Y OR GREATE R [facility] Jan 28, 2017 12:47 PM FORMER TOBACCO USER 7Y OR GREATE R [facility] Jan 21, 2016 03:04 PM FORMER TOBACCO USER 7Y OR GREATE R [facility] Apr 02, 2015 02:05 PM FORMER TOBACCO USER 7Y OR GREATE R [facility] March 01, 2014 09:10 AM FORMER TOBACCO USER 7Y OR GREATE R [facility] Sep 18, 2013 09:13 AM CDM COPD TOBACCO NON-USER [facility] May 28, 2013 11:05 AM LIFETIME NON-TOBACCO USER [facility] May 25, 2013 12:08 PM FORMER TOBACCO USER 7Y OR GREATE R [facility] Jun 18, 2009 09:48 AM FORMER TOBACCO USER 7Y OR GREATE R [facility] Aug 24, 2008 10:10 AM FORMER TOBACCO USE >1Y <7Y [facility] Advance Directives: All historical and current Section Date Range: From patient's date of to the date document was created. This section includes ALL of a patient's completed or amended [place] Advance and Rescinded Directives. The entries below indicate that a directive exists for the patient, but an actual copy is not included with this document. The data comes from all [place] facilities. Date Advance Directives Provider Source March 08, 2023 ADVANCE DIRECTIVE ODILIA [facility]RISTIANSON [facility] May 02, 2014 ADVANCE DIRECTIVE DISCUSSION QUEENIE SAENZ [facility] May 24, 2013 CLINICAL WARNING GALINDO STUART [facility] Sep 21, 2011 ADVANCE DIRECTIVE JORDAN ZHANG [facility] Radiology Reports: +/- 30 days of the [...] the Encounter. The data comes from all [place] treatment facilities. Date/Time Radiology Report Provider Source Jan 10, 2025 07:58 AM SHOULDER RIGHT 2-3 VIEWS: KEENA ROSA [id number] -[id number] M Exm Date: JAN 10, 2025@07:58 Req Phys: SHELLI KIM Pat Loc: OR-PACU/01-10-2025@15:42 Img Loc: MAIN X-RAY Service: [place] [address] (Case [id number] COMPLETE) SHOULDER RIGHT 2-3 VIEWS (RAD Detailed) CPT:34614 Proc Modifiers : PORTABLE EXAM, OPERATING ROOM EXAM Reason for Study: right reverse TSA Clinical History: OR 6 shoulder rotator cuff arthropathy My pager number on record is: . I confirm that the pager number/cell phone number above is correct for reporting critical results. My correct contact # for critial results is:Valerio KIM [phone] Trainees only: Enter your staff provider's info here: LAST CREATININE 1.0 (12/18/24) Report Status: Verified Date Reported: JAN 10, 2025 Date Verified: JAN 10, 2025 Real Estate Site Analyst E-Sig:/ES/MIRANDA BROOKE MD Report: EXAMINATION: SHOULDER RIGHT 2-3 VIEWS 01/10/2025 7:58 AM INDICATION: right reverse TSA Impression: Right reverse TSA. Components appear well seated. Report Sign Date/Time: 01/10/2025 3:39 PM Primary Interpreting Staff: MIRANDA BROOKE MD, RADIOLOGIST (Real Estate Site Analyst) /RTS MIRANDA BROOKE [facility]
--- OUTSIDE RECORDS SUMMARY | 2025-01-16 08:13 | XMS_ITS | Encounter Summary ---
Author Name [facility] [place] [facility] [place] [facility] [place] Address [address] [place] [address] Care Team Providers Care Fiction And Nonfiction Author Name Role Phone ZENY MARTIN Primary Care [...] PART A Oct 18, 2013 PART A [id number] [phone] Mary ROSA PATIENT MEDICARE (WNR) MEDICARE (M) PART B Oct 18, 2013 PART B [id number] Mary ROSA EORODNEY PATIENT MEDICARE (WNR) MEDICARE (M) PART A Oct 18, 2013 PART A [id number] Mary ROSA PATIENT Selected Encounter This section includes the information on record at [place] for the Encounter. Date/Time Encounter Type Encounter Description Reason Provider Source May 30, 2024 01:45 PM ORTHOTIC MGMT&TRAING 1ST ENC PROSTHETICS/ORTHOT ICS ICD-10-CM M25.562 Pain in left knee ORLY WEBBER Encounter Template Text not used by [facility] Assessments - Encounter Diagnoses This section includes the primary and secondary diagnoses documented for the Encounter. Date/Time Primary/Secondary Diagnosis Diagnosis Name Provider Source May 30, 2024 03:52 PM PRIMARY Pain in left knee ORLY WEBBER [facility] Plan of Treatment: Future Appointments (+ 6 months) and Future Tests (+/- 45 days) The Plan of Treatment section includes future care activities for the patient [facility] [place] [facility] This section includes future appointments and future orders which are active, pending or scheduled. Future Appointments This section includes appointments that were scheduled to occur 6 months from the date of the Encounter, up to a maximum of 20 appointments. The data comes from all [place] treatment facilities. Appointment Date/Time Appointment Type Appointme nt Facility Name Jun 08, 2024 10:00 AM AM[place]UL[place]ORY [place] [facility] Jun 20, 2024 07:00 AM [place] [facility] Jun 21, 2024 01:00 PM AMBUL[place] [facility] Jun 21, 2024 02:15 PM [place]ORY [place]ONE [place] [facility] Jun 29, 2024 07:00 AM AMBUL[place]ORY - NONE [place] [facility] Jun 29, 2024 10:00 AM AM[place]ORY [place]IC[place] [facility] Jul 13, 2024 10:00 AM AM[place]ORY [place]IC[place] [facility] Jul 27, 2024 10:00 AM [place]IC[place] [facility] Aug 02, 2024 03:00 PM AMBULATORY [place] [facility] Aug 14, 2024 01:00 PM AM[place]ORY [place] [facility] Aug 18, 2024 02:00 PM AM[place]ULATORY - NONE [place] [facility] Sep 07, 2024 10:00 AM AM[place]ORY [place]IC[place] [facility] Sep 18, 2024 02:00 PM AMBULATORY - [place] [facility] Sep 19, 2024 10:30 AM AM[place]UL[place]ORY - [place]GERY [place] [facility] Sep 22, 2024 02:40 PM AMBULATORY - [place]GERY [place] [facility] Sep 22, 2024 03:00 PM AMBULATORY - [place]GERY [place] [facility] Sep 25, 2024 11:15 AM AMBULATORY - [place] [facility] Sep 25, 2024 12:15 PM [place]ULATORY [place]IC[place] [facility] Sep 25, 2024 01:00 PM [place]UL[place]ORY [place]IC[place] [facility] Sep 25, 2024 02:00 PM AMBULATORY - MEDICINE [facility] Social History: Smoking Status (Most current) and Tobacco Use (All prior to encounter date) This section includes the most current, and the historical, smoking and tobacco- related health factors from the [place] facility where the Encounter took place. Current Smoking Status This section includes the most current smoking, or tobacco-related health factor, from the [place] facility where the Encounter took place. Date/Time Current Smoking Status Comment Facil ity Nov 19, 2023 08:00 AM VA-TOBACCO FORMER USER [facility] Tobacco Use History This section includes a history of the smoking, or tobacco-related health factors, that were collected on or before the date of the Encounter. The data comes from the [place] facility where the Encounter took place. Date/Time Smoking Status/Tobacco Use Comment F acility Nov 19, 2023 08:00 AM VA-TOBACCO QUIT 15 YRS OR MORE [facility] Jan 28, 2023 09:45 AM VA-TOBACCO FORMER USER [facility] Jan 28, 2023 09:45 AM VA-TOBACCO QUIT 15 YRS OR MORE [facility] Oct 30, 2021 03:00 PM VA-TOBACCO FORMER USER [facility] Oct 30, 2021 03:00 PM VA-TOBACCO QUIT 5 TO < 15 YRS [facility] Aug 17, 2019 11:38 AM VA-TOBACCO FORMER USER [facility] Aug 17, 2019 11:38 AM VA-TOBACCO QUIT 5 TO < 15 YRS [facility] Jan 06, 2018 02:39 PM FORMER TOBACCO USER 7Y OR GREATE R [facility] Jan 28, 2017 12:47 PM FORMER TOBACCO USER 7Y OR GREATE R [facility] Jan 21, 2016 03:04 PM FORMER TOBACCO USER 7Y OR GREATE R [facility] Apr 02, 2015 02:05 PM FORMER TOBACCO USER 7Y OR GREATE R [facility] March 01, 2014 09:10 AM FORMER TOBACCO USER 7Y OR GREATE R [facility] Sep 18, 2013 09:13 AM CDM COPD TOBACCO NON-USER [facility] May 28, 2013 11:05 AM LIFETIME NON-TOBACCO USER [facility] May 25, 2013 12:08 PM FORMER TOBACCO USER 7Y OR GREATE R [facility] Jun 18, 2009 09:48 AM FORMER TOBACCO USER 7Y OR GREATE R [facility] Aug 24, 2008 10:10 AM FORMER TOBACCO USE >1Y <7Y [facility] Advance Directives: All historical and current Section Date Range: From patient's date of to the date document was created. This section includes ALL of a patient's completed or amended [place] Advance and Rescinded Directives. The entries below indicate that a directive exists for the patient, but an actual copy is not included with this document. The data comes from all [facility]. Date Advance Directives Provider Source March 08, 2023 ADVANCE DIRECTIVE SAMMYODILIA [facility] May 02, 2014 ADVANCE DIRECTIVE DISCUSSION QUEENIE SAENZ [facility] May 24, 2013 CLINICAL WARNING SHEYLARGALINDO [facility] Sep 21, 2011 ADVANCE DIRECTIVE JORDAN ZHANG [facility] Radiology Reports: +/- 30 days [...] the Encounter. The data comes from all [place] treatment facilities. Date/Time Radiology Report Provider Source May 12, 2024 02:14 PM SHOULDER RIGHT 4V: MOEKEENAANTHONY PRYOR [id number] -[id number] M Exm Date: MAY 12, 2024@14:14 Req Phys: ZENY MARTIN Loc: [facility] PACT JOYCE 4E (Req'g Loc) Img Loc: MAIN X-RAY Service: [place] [address] (Case [id number] COMPLETE) SHOULDER RIGHT 4V (RAD Detailed) CPT:40818 Proc Modifiers : RIGHT Reason for Study: r/o djd Clinical History: IS NOT under investigation for COVID-19 or is COVID-19 negative Chronic pain Responsible provider name and phone number to notify for critical findings if other than user placing the order and pager listed below: User placing orders pager: [phone] [id number] LAST CREATININE 0.9 (03/27/24) Report Status: Verified Date Reported: MAY 12, 2024 Date Verified: MAY 12, 2024 School Vocational Educator E-Sig: Report: SHOULDER RIGHT 4V HISTORY: r/o djd COMPARISON: Radiographs of the right shoulder dated 08/05/2023 TECHNIQUE: 4 view(s) of the right shoulder, submitted to the [place] National Teleradiology Program (NTP) for interpretation. FINDINGS/ [...] calcific tendinitis. READING PHYSICIAN: Marino Daily MD -[phone] 05/12/2024 12:50 PDT [facility] National Teleradiology Program [phone] (For Medical Practitioner Use Only) Attention Patients / Veterans: If you have questions or concerns about these test results, please contact your ordering provider or primary care team. Primary Interpreting Staff: RADIOLOGY,OUTSIDE SERVICE, Staff Physician / RADIOLOGY,OUTSIDE SERVICE [facility] May 12, 2024 02:14 PM WRIST RIGHT 3 VIEW S OR MORE: KEENA ROSA [id number] -[id number] M Exm Date: MAY 12, 2024@14:14 Req Phys: ZENY MARTIN Loc: [facility] PACT JOYCE 4E (Req'g Loc) Img Loc: MAIN X-RAY Service: [place] [address] (Case [id number] COMPLETE) WRIST RIGHT 3 VIEWS OR MORE (RAD Detailed) CPT:53344 Proc Modifiers : RIGHT Reason for Study: r/o djd Clinical History: IS NOT under investigation for COVID-19 or is COVID-19 negative Pain, no trauma Responsible provider name and phone number to notify for critical findings if other than user placing the order and pager listed below: User placing orders pager: [phone] LAST CREATININE 0.9 (03/27/24) Report Status: Verified Date Reported: MAY 12, 2024 Date Verified: MAY 12, 2024 School Vocational Educator E-Sig: Report: WRIST RIGHT 3 VIEWS OR MORE HISTORY: r/o djd COMPARISON: Radiographs of the right wrist dated 07/05/2020 TECHNIQUE: 3 view(s) of the right wrist, submitted to the [place] National Teleradiology Program (NTP) for interpretation. FINDINGS/ Impression: No fracture identified. Alignment is within normal limits. Severe degenerative changes of osteoarthritis involving the triscaphe joint. There is more mild degenerative change seen at the first carpometacarpal joint. READING PHYSICIAN: Marino Daily MD -[phone] 05/12/2024 12:52 PDT [facility] National Teleradiology Program [phone] (For Medical Practitioner Use Only) Attention Patients / Veterans: If you have questions or concerns about these test results, please contact your ordering provider or primary care team. Primary Interpreting Staff: RADIOLOGY,OUTSIDE SERVICE, Staff Physician / RADIOLOGY,OUTSIDE SERVICE [facility] Encounter Notes: All associated encounter notes This section contains the clinical notes associated to the Encounter. Date/Time Encounter Note(s) Provider Source May 30, 2024 03:45 PM ORTHOTICS PROSTHET ICS CONSULT: LOCAL TITLE: PROSTHETICS CONSULT STANDARD TITLE: ORTHOTICS PROSTHETICS CONSULT DATE OF NOTE: MAY 30, 2024@15:45 ENTRY DATE: MAY 30, 2024@15:45:55 AUTHOR: ORLY WEBBER EXP COSIGNER: URGENCY: STATUS: COMPLETED Provisional Diagnosis: Pain in left Knee(ICD-10-CM M25.562) Reason For Request: Brace Outpatient Left knee brace. Needs new one. ASSESSMENT: presented in clinic with orders to receive knee brace. The veterans current brace was evaluated. The veterans brace had been adjusted and ne straps were ordered and on multiple occasions. The brace is in its later stages and is currently falling apart. Adjustments were made today as no brace was available in his size due to atrophy. He has been asked to come in next week so that he can be fit once we have been restocked in his size. Today measurements were taken. Side: Left Thigh:16 1/4 Knee Center:15 1/2 3 3/4 Calf:13 Size: Small EDUCATION: Education was provided to patient during this encounter. Patient indicated readiness to learn about educational information re: the following topics: donning/doffing, wash/care instructions, how to report a concern. Patient indicates readiness to learn, verbalizes understanding, agreement and satisfaction with the treatment plan. Denies further questions. If necessary, patient to be rescheduled upon receipt or completed fabrication of ordered item(s)/device(s). No brace issued: ------- /kyle/ ORLY WEBBER Health Business Process Architect (Road Inspector) Signed: 05/30/2024 15:52 ORLY WEBBER [facility]
--- OUTSIDE RECORDS SUMMARY | 2025-01-16 08:13 | XMS_ITS ---
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 Date/Time Encounter Type Encounter Description Reason Pro vider Source Jan 11, 2025 11:38 AM Inpatient Visit DAILY HOSPITALIZATION DATA MERCEDES ROSA Encounter Template Text not used by ID Plan of Treatment: Future Appointments (+ 6 months) and Future Tests (+/- 45 days) The Plan of Treatment section includes future care activities for the [facility] This section includes future appointments and future orders which are active, pending or scheduled. Future Appointments This section includes appointments that were scheduled to occur 6 months from the date of the Encounter, up to a maximum of 20 appointments. The data comes from all [facility]. Appointment Date/Time Appointment Type Appointme nt Facility Name Jan 24, 2025 01:00 PM AMBULATORY - SURGERY [facility] Jan 25, 2025 10:00 AM AMBULATORY - MEDICINE [facility] Jan 25, 2025 11:00 AM AMBULATORY - REHAB MEDICIN E [facility] Feb 01, 2025 10:00 AM AMBULATORY - MEDICINE [facility] Feb 01, 2025 11:00 AM AMBULATORY - MEDICINE [facility] Feb 08, 2025 10:00 AM AMBULATORY - MEDICINE [facility] February 22, 2025 10:00 AM AMBULATORY MEDICINE [facility] February 23, 2025 11:00 AM AMBULATORY - NONE [facility] February 23, 2025 11:30 AM AMBULATORY - SURGERY [facility] March 08, 2025 10:00 AM AMBULATORY - MEDICINE [facility] Apr 09, 2025 01:00 PM AMBULATORY - SURGERY [facility] Active, Pending, and Scheduled Orders This section includes a listing of several types of active, pending, and scheduled orders, including clinic medications orders, diagnostic test orders, procedure orders and consult orders; where the start date of the order is 45 days before the date of the Encounter or 45 days after the date of theEncounter. The data comes from all [facility]. Test Date/Time Test Type Test Details Facility Name Dec 11, 2024 11:04 AM Consult Order PT PHYSICA L THERAPY OUTPT ORTHO SURGERY [employer] [facility] Jan 10, 2025 12:00 AM Laboratory - Blood Bank Order TYPE & SCREEN - LAB BLOOD [facility] Jan 12, 2025 08:18 AM Consult Order [facility] Jan 22, 2025 12:00 AM Laboratory - Chemi stry Order HEMOGLOBIN A1C BLOOD SP ONCE [facility] Jan 22, 2025 12:00 AM Laboratory - Chemi stry Order BASIC METABOLIC PANEL+MG PLASMA SP [facility] February 23, 2025 11:00 AM Imaging - General Radiology Order SHOULDER RIGHT 2-3 VIEWS RIGHT [facility] Lab Results: +/- 30 days of [...] Range Comment Jan 11, 2025 12:21 PM [facility] FINGERSTICK GLUCOSE Specimen Type: BLOOD Comment: Save Result Nurse Notified Ordering Provider: ANDREA WOLF Report Released Date/Time: Jan 11, 2025 12:51 PM Reporting Lab: [facility] [phone] Performing Lab: [facility] [phone] FINGERSTICK GLUCOSE 246 mg/dL H 70-100 Jan 11, 2025 07:37 AM [facility] CBC Specimen Type: BLOOD No comment entered. Ordering Provider: ANDREA WOLF Report Released Date/Time: Jan 10, 2025 02:40 PM Reporting Lab: [facility] [phone] Performing Lab: [facility] [phone] WBC 9.7 4.0-11.0 RBC 4.50 L 4.60-6.20 HGB 12.9 g/dL L 13.5-17.9 HCT 42.3 41.0-54.0 MCV 94.0 fL 80.0-100.0 MCH 28.7 pg 27.0-33.0 MCHC 30.5 g/dL L 32.0-37.5 PLT 174 150-400 MPV 11.5 fL 9.1-13.0 RDW 13.3 11.5-14.5 Jan 11, 2025 07:37 AM [facility] BASIC METABOLIC PANEL+MG Specimen Type: PLASMA No comment entered. Ordering Provider: ANDREA WOLF Report Released Date/Time: Jan 10, 2025 02:40 PM Reporting Lab: [facility] [phone] Performing Lab: [facility] [phone] CREATININE 1.0 mg/dL 0.7-1.2 UREA NITROGEN 21 mg/dL 8-26 GLUCOSE 203 mg/dL H 70-100 SODIUM 136 mmol/L 136-145 POTASSIUM 4.1 mmol/L 3.5-5.1 CHLORIDE 102 mmol/L 98-107 CO2 23 mmol/L 22-29 CALCIUM 8.8 mg/dL 8.4-10.2 MAGNESIUM 2.0 mg/dL 1.6-2.6 ANION GAP 11 mmol/L 5-15 .CREAT EGFR(CKD-EPI) 80 >60 Jan 11, 2025 06:10 AM [facility] FINGERSTICK GLUCOSE Specimen Type: BLOOD Comment: Save Result Nurse Notified Ordering Provider: Lilli CHRISTENSEN Report Released Date/Time: Jan 11, 2025 07:41 AM Reporting Lab: [facility] [phone] Performing Lab: [facility] [phone] FINGERSTICK GLUCOSE 220 mg/dL H 70-100 Jan 10, 2025 08:11 PM [facility] FINGERSTICK GLUCOSE Specimen Type: BLOOD Comment: Save Result Nurse Notified Ordering Provider: Lilli CHRISTENSEN Report Released Date/Time: Jan 10, 2025 08:36 PM Reporting Lab: [facility] [phone] Performing Lab: [facility] [phone] FINGERSTICK GLUCOSE 239 mg/dL H 70-100 Jan 10, 2025 04:30 PM [facility] FINGERSTICK GLUCOSE Specimen Type: BLOOD Comment: Save Result Nurse Notified Ordering Provider: Lilli CHRISTENSEN Report Released Date/Time: Jan 10, 2025 05:34 PM Reporting Lab: [facility] [phone] Performing Lab: [facility] [phone] FINGERSTICK GLUCOSE 190 mg/dL H 70-100 Jan 10, 2025 02:40 PM [facility] FINGERSTICK GLUCOSE Specimen Type: BLOOD Comment: Save Result Nurse Notified Ordering Provider: BENIGNO KIM Report Released Date/Time: Jan 10, 2025 03:01 PM Reporting Lab: [facility] [phone] Performing Lab: [facility] [phone] FINGERSTICK GLUCOSE 183 mg/dL H 70-100 Jan 10, 2025 08:35 AM [facility] PROTHROMBIN TIME/INR Specimen Type: PLASMA Comment: ~Draw on admission. Call IV team to draw on admission. Ordering Provider: BENIGNO KIM A Report Released Date/Time: Jan 10, 2025 08:01 AM Reporting Lab: [facility] [phone] Performing Lab: [facility] [phone] .INR 0.9 0.8-1.1 .PT 10.9 s 9.4-12.5 Jan 10, 2025 08:35 AM [facility] ACT PART THROMBO TIME Specimen Type: PLASMA Comment: ~Draw on admission. Call IV team to draw on admission. Ordering Provider: BENIGNO KIM A Report Released Date/Time: Jan 10, 2025 08:01 AM Reporting Lab: [facility] [phone] Performing Lab: [facility] [phone] APTT 31.4 s 25.1-36.5 Jan 10, 2025 08:35 AM [facility] CBC Specimen Type: BLOOD No comment entered. Ordering Provider: BENIGNO KIM A Report Released Date/Time: Jan 10, 2025 08:01 AM Reporting Lab: [facility] [phone] Performing Lab: [facility] [phone] WBC 6.6 4.0-11.0 RBC 5.00 4.60-6.20 HGB 14.5 g/dL 13.5-17.9 HCT 46.1 41.0-54.0 MCV 92.2 fL 80.0-100.0 MCH 29.0 pg 27.0-33.0 MCHC 31.5 g/dL L 32.0-37.5 PLT 172 150-400 MPV 10.9 fL 9.1-13.0 RDW 13.7 11.5-14.5 Jan 10, 2025 08:35 AM [facility] BASIC METABOLIC PANEL+MG Specimen Type: PLASMA No comment entered. Ordering Provider: BENIGNO KIM A Report Released Date/Time: Jan 10, 2025 08:01 AM Reporting Lab: [facility] [phone] Performing Lab: [facility] [phone] CREATININE 0.9 mg/dL 0.7-1.2 UREA NITROGEN 19 mg/dL 8-26 GLUCOSE 151 mg/dL H 70-100 SODIUM 138 mmol/L 136-145 POTASSIUM 3.9 mmol/L 3.5-5.1 CHLORIDE 106 mmol/L 98-107 CO2 23 mmol/L 22-29 CALCIUM 9.3 mg/dL 8.4-10.2 MAGNESIUM 2.0 mg/dL 1.6-2.6 ANION GAP 9 mmol/L 5-15 .CREAT EGFR(CKD-EPI) >90 >60 Jan 10, 2025 08:35 AM [facility] FINGERSTICK GLUCOSE Specimen Type: BLOOD Comment: Save Result Ordering Provider: BENIGNO KIM Report Released Date/Time: Jan 10, 2025 10:31 AM Reporting Lab: [facility] [phone] Performing Lab: [facility] [phone] FINGERSTICK GLUCOSE 155 mg/dL H 70-100 Dec 18, 2024 12:16 PM [facility] ALBUMIN Specimen Type: PLASMA No comment entered. Ordering Provider: BENIGNO KIM Report Released Date/Time: Sep 27, 2024 10:57 AM Reporting Lab: [facility] [id number] Performing Lab: [facility] [phone] ALBUMIN 4.4 g/dL 3.5-5.0 Dec 18, 2024 12:16 PM [facility] HEMOGLOBIN A1C Specimen Type: BLOOD Comment: [...] Sep 27, 2024 10:57 AM Reporting Lab: [facility] [id number] Performing Lab: [facility] [phone] HEMOGLOBIN A1C 7.1 H 4.0-6.0 Dec 18, 2024 12:16 PM [facility] PROTHROMBIN TIME/INR Specimen Type: PLASMA No comment entered. Ordering Provider: BENIGNO KIM A Report Released Date/Time: Sep 27, 2024 10:57 AM Reporting Lab: [facility] [id number] Performing Lab: [facility] [id number] .INR 0.9 0.8-1.1 .PT 10.3 s 9.4-12.5 Dec 18, 2024 12:16 PM [facility] BASIC METABOLIC PANEL+MG Specimen Type: PLASMA No comment entered. Ordering Provider: BENIGNO KIM A Report Released Date/Time: Sep 27, 2024 10:57 AM Reporting Lab: [facility] [id number] Performing Lab: [facility] [phone] CREATININE 1.0 mg/dL 0.7-1.2 UREA NITROGEN 19 mg/dL 8-26 GLUCOSE 118 mg/dL H 70-100 SODIUM 139 mmol/L 136-145 POTASSIUM 4.1 mmol/L 3.5-5.1 CHLORIDE 104 mmol/L 98-107 CO2 25 mmol/L 22-29 CALCIUM 9.6 mg/dL 8.4-10.2 MAGNESIUM 2.1 mg/dL 1.6-2.6 ANION GAP 10 mmol/L 5-15 .CREAT EGFR(CKD-EPI) 80 >60 Dec 18, 2024 12:16 PM [facility] CBC & DIFF Specimen Type: BLOOD Comment: Automated Differential Performed Ordering Provider: BENIGNO KIM A Report Released Date/Time: Sep 27, 2024 10:57 AM Reporting Lab: [facility] [phone] Performing Lab: [facility] [phone] WBC 9.5 4.0-11.0 RBC 5.05 4.60-6.20 HGB [...] Source Jan 11, 2025 09:30 AM 5 [facility] Jan 11, 2025 08:35 AM 8 [facility] Jan 11, 2025 08:31 AM 97.5 50 122/69 16 100 8 [facility] Jan 11, 2025 04:27 AM 6 [facility] Jan 11, 2025 12:28 AM 9 [facility] Social History: Smoking [...] 19, 2023 08:00 AM VA-TOBACCO FORMER USER [facility] Tobacco Use History This section includes a history of the smoking, or tobacco-related health factors, that were collected on or before the date of the Encounter. The data comes from the ID facility where the Encounter took place. Date/Time Smoking Status/Tobacco Use Comment F mahamed Nov 19, 2023 08:00 AM VA-TOBACCO QUIT 15 YRS OR MORE [facility] Jan 28, 2023 09:45 AM VA-TOBACCO FORMER USER [facility] Jan 28, 2023 09:45 AM VA-TOBACCO QUIT 15 YRS OR MORE [facility] Oct 30, 2021 03:00 PM VA-TOBACCO FORMER USER [facility] Oct 30, 2021 03:00 PM VA-TOBACCO QUIT 5 TO < 15 YRS [facility] Aug 17, 2019 11:38 AM VA-TOBACCO FORMER USER [facility] Aug 17, 2019 11:38 AM VA-TOBACCO QUIT 5 TO < 15 YRS [facility] Jan 06, 2018 02:39 PM FORMER TOBACCO USER 7Y OR GREATE R [facility] Jan 28, 2017 12:47 PM FORMER TOBACCO USER 7Y OR GREATE R [facility] Jan 21, 2016 03:04 PM FORMER TOBACCO USER 7Y OR GREATE R [facility] Apr 02, 2015 02:05 PM FORMER TOBACCO USER 7Y OR GREATE R [facility] March 01, 2014 09:10 AM FORMER TOBACCO USER 7Y OR GREATE R [facility] Sep 18, 2013 09:13 AM CDM COPD TOBACCO NON-USER [facility] May 28, 2013 11:05 AM LIFETIME NON-TOBACCO USER [facility] May 25, 2013 12:08 PM FORMER TOBACCO USER 7Y OR GREATE R [facility] Jun 18, 2009 09:48 AM FORMER TOBACCO USER 7Y OR GREATE R [facility] Aug 24, 2008 10:10 AM FORMER TOBACCO USE >1Y <7Y [facility] Advance Directives: All historical and current Section Date Range: From patient's date of to the date document was created. This section includes ALL of a patient's completed or amended ID Advance and Rescinded Directives. The entries below indicate that a directive exists for the patient, but an actual copy is not included with this document. The data comes from all [facility]. Date Advance Directives Provider Source March 08, 2023 ADVANCE DIRECTIVE ODILIA CHRISTIANSON [facility] May 02, 2014 ADVANCE DIRECTIVE DISCUSSION QUEENIE SAENZ [facility] May 24, 2013 CLINICAL WARNING GALINDO STUART [facility] Sep 21, 2011 ADVANCE DIRECTIVE JORDAN ZHANG [facility] Radiology Reports: +/- 30 days of [...] the Encounter. The data comes from all [facility]. Date/Time Radiology Report Provider Source Jan 10, 2025 07:58 AM SHOULDER RIGHT 2-3 VIEWS: KEENA RSOA [id number] -1955 M Exm Date: JAN 10, 2025@07:58 Req Phys: ARMINDA KIMHECTOR Macias Loc: OR-PACU/01-10-2025@15:42 Img Loc: MAIN X-RAY Service: [place] [address] (Case [id number] COMPLETE) SHOULDER RIGHT 2-3 VIEWS (RAD Detailed) CPT:33314 Proc Modifiers : PORTABLE EXAM, OPERATING ROOM EXAM Reason for Study: right reverse TSA Clinical History: OR 6 shoulder rotator cuff arthropathy My pager number on record is: . I confirm that the pager number/cell phone number above is correct for reporting critical results. 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 Components appear well seated. Report Sign Date/Time: 01/10/2025 3:39 PM Primary Interpreting Staff: MIRANDA BROOKE MD, RADIOLOGIST (Marking Machine Operator) /RTS MIRANDA BROOKE [facility]
[2025-01-16 08:20] LABS: C Reactive Protein* 12.5 mg/dL (0.5-1.0)
--- NOTE | 2025-01-16 09:26 | PC.SOCIAL ---
Social work: Met with pt regarding his concerns of care at home. Pt states [place] after [place] surgery with home care nurse and home health aid. Pt states he had hoped to go to a senior care and thinks the [facility]. When asked more about his plans to go to a senior care, pt stated the [place] did not want to pay for it, so sent him home. Pt states he has been talking to his home health care nurse about increasing services at home and requested social worker health services call home health nurse to see where she is with that. Called [facility] Home Health [facility] nurse, Licha ([phone]), at pt request. Licha states pt has had home services through [facility] for years. Prior to surgery, home care nurse thought the plan was to go to [facility] for rehab. Home Health nurse states she thinks pt refused to go to [facility] and requested to go home from [place]. Licha states pt is receiving maximum services he is eligible for at home but they may be able to add one more bathing aid visit. Licha plans to visit pt at home this morning and will follow up with him about this. Met with pt again, who is pleased with plan for home health nurse to visit this morning. Pt refused for this social worker health services to contact [facility] to obtain information for pt on why he did not go there from [place] or to ask them to contact him about looking into going there from home. When asked what services pt feels he needs at home to be successful at home, pt states he has a headache and does not want to talk to social worker health services any more. Pt refused for this social worker health services to contact his [facility] egg caser to inquire about what happened with the planned discharge to [facility]. Pt states he is going to call his friend for a ride home.
== END 2025-01-16 10:19 | disposition home or self-care (01) ==
PROVIDERS: Emergency Provider Family Medicine
DX: G89.18 Other acute postprocedural pain (principal); Z73.89 Other problems related to life management difficulty
CPT/HCPCS: 36415; 80053; 81003; 85025; 86140; 99283; 99284; A9270; J1815